=== PATIENT | female | born 1980 | race Caucasian/White ===

== ENCOUNTER → 2017-10-31 10:11 | Outpatient (CLI) | payer BC, SELFPAY ==
[2017-10-31 12:05] LABS: Basophils % 0.3 % (0.1-2.0); Eosinophils # 0.1 K/mm3 (0.0-0.4); Eosinophils % 1.1 % (0.1-12.0); Hematocrit 42.1 % (37.0-47.0); Hemoglobin 13.7 g/dL (12.2-16.2); Lymphocytes # 2.5 K/mm3 (0.7-4.5); Mean Corpuscular HGB Conc 32.6 g/dL (31.8-35.4); Mean Corpuscular Hemoglobin 28.4 pg (27.0-31.2); Mean Corpuscular Volume 86.9 fl (81-99); Mean Platelet Volume 7.2 fl (7.4-10.4); Monocytes # 0.3 K/mm3 (0.1-1.0); Monocytes % 3.8 % (1.7-9.3); Neutrophils # 5.4 K/mm3 (1.8-7.8); Neutrophils % 64.8 % (37.0-80.0); Platelet Count 289 K/mm3 (142-424); Red Blood Count 4.84 M/mm3 (4.20-5.40); Red Cell Distribution Width 13.1 % (11.5-17.5); White Blood Count 8.3 K/mm3 (4.8-10.8)
[2017-10-31 12:24] LABS: Hemoglobin A1C 5.6 % (0.0-7.0)
[2017-10-31 13:38] LABS: Alanine Aminotransferase 33 U/L (12-78); Albumin Level 3.6 gm/dL (3.4-5.0); Alkaline Phosphatase 97 U/L (46-116); Anion Gap 13.2 mEq/L (5-15); Aspartate Amino Transferase 16 U/L (15-37); Bilirubin,Total 0.5 mg/dL (0.2-1.0); Blood Urea Nitrogen 18 mg/dL (7-18); Calcium 9.4 mg/dL (8.5-10.1); Carbon Dioxide 29 mmol/L (21.0-32.0); Chloride 103 mmol/L (98-107); Chol/HDL Ratio 4.1 (1-3.5); Cholesterol 185 mg/dL (140-200); Creatinine,Serum 0.73 mg/dL (0.55-1.02); Estimated Glomerular Filt Rate 89 ml/min (>60); Ferritin 116 ng/mL (8-388); GFR (African American) 107 ML/MIN (>60); Globulin 3.5 gm/dl (1.3-3.2); Glucose 86 mg/dL (74-106); HDL Cholesterol 45 mg/dL (29-89); Iron 62 ug/dl (28-170); LDL Cholesterol 98 mg/dL (0-130); Magnesium 1.9 mg/dL (1.4-2.2); Phosphorous 2.8 mg/dL (2.4-4.9); Potassium 4.2 mmoL/L (3.5-5.1); Sodium 141 mmol/L (136-145); Total Protein,Serum 7.1 gm/dL (6.4-8.2); Triglycerides 209 mg/dL (30-200); VLDL Cholesterol 42 mg/dL (0-40)
[2017-11-02 12:50] LABS: Folate >20.0 ng/mL (>3.0); Parathyroid Hormone Intact 52 pg/mL (15-65); Prealbumin 23 mg/dL (14-35)
[2017-11-04 16:09] LABS: Vitamin E Alpha Tocopherol 10.9 mg/L (5.9-19.4)
[2017-11-05 06:43] LABS: Vitamin E Gamma Tocopherol 3.5 mg/L (0.7-4.9)
[2017-11-05 11:30] LABS: Vitamin B1 151.1 nmol/L (66.5-200.0)
[2017-11-06 06:04] LABS: Methylmalonic Acid 118 nmol/L (0-378)
[2017-11-16 21:53] LABS: Vitamin D 25 Hydroxy 23.1
== END ==
PROVIDERS: Visit Provider Physician Assistant
DX: I10 Essential (primary) hypertension (principal); K21.9 Gastro-esophageal reflux disease without esophagitis; E66.01 Morbid (severe) obesity due to excess calories
CPT/HCPCS: 36415; 80053; 80061; 82131; 82652; 82728; 82746; 83036; 83540; 83735; 83970; 84100; 84134; 84425; 84443; 84446; 84590; 85025

== ENCOUNTER 2018-05-06 17:02 | Outpatient (RCR) | payer BC, SELFPAY | END 2018-06-07 11:00 | disposition home or self-care (01) | LOC: PT.CARL 17:02 | PROVIDERS: Visit Provider Orthopaedic Surgery | DX: M25.562 Pain in left knee (principal) | CPT/HCPCS: 97010; 97014; 97035; 97110; 97163; G0283 ==

== ENCOUNTER 2018-07-08 17:00 | Outpatient (RCR) | payer BC, SELFPAY | END 2018-08-05 16:00 | disposition home or self-care (01) | LOC: PT.CARL 17:00 | PROVIDERS: Visit Provider Orthopaedic Surgery | DX: M25.562 Pain in left knee (principal) | CPT/HCPCS: 97010; 97014; 97110; 97163; G0283 ==

== ENCOUNTER → 2018-12-13 16:52 | Outpatient (CLI) | payer BC, SELFPAY ==
[2018-12-13 17:51] LABS: Basophils % 0.3 % (0.1-2.0); Eosinophils % 0.5 % (0.1-12.0); Hematocrit 41.5 % (37.0-47.0); Hemoglobin 13.3 g/dL (12.2-16.2); Lymphocytes # 2.7 K/mm3 (0.7-4.5); Lymphocytes % 31.4 % (10-50); Mean Corpuscular HGB Conc 32.1 g/dL (31.8-35.4); Mean Corpuscular Hemoglobin 28.2 pg (27.0-31.2); Mean Corpuscular Volume 87.9 fl (81-99); Mean Platelet Volume 7.2 fl (7.4-10.4); Monocytes # 0.4 K/mm3 (0.1-1.0); Monocytes % 4.9 % (1.7-9.3); Neutrophils # 5.4 K/mm3 (1.8-7.8); Neutrophils % 62.8 % (37.0-80.0); Platelet Count 231 K/mm3 (142-424); Red Blood Count 4.72 M/mm3 (4.20-5.40); Red Cell Distribution Width 12.9 % (11.5-17.5); White Blood Count 8.6 K/mm3 (4.8-10.8)
[2018-12-15 17:13] LABS: RA Latex Turbid. <10.0 IU/mL (0.0-13.9)
[2018-12-18 14:07] LABS: Antinuclear Antibodies, IFA Negative (.)
== END ==
PROVIDERS: Visit Provider Family Medicine
DX: M19.90 Unspecified osteoarthritis, unspecified site (principal)
CPT/HCPCS: 36415; 85025; 86038; 86431

== ENCOUNTER 2019-04-21 12:37 | Outpatient (RCR) | payer BC, SELFPAY | END 2019-04-21 15:00 | disposition home or self-care (01) | LOC: OT 12:37 | PROVIDERS: PCP Nurse Practitioner Family; Visit Provider Orthopaedic Surgery Hand Surgery | DX: M25.531 Pain in right wrist (principal); Z48.89 Encounter for other specified surgical aftercare | CPT/HCPCS: 97140; 97165 ==

== ENCOUNTER → 2019-09-29 10:52 | Outpatient (CLI) | payer BC, SELFPAY ==
--- NOTE | 2019-09-29 10:59 | MR_ITS ---
PROCEDURE: MR LUMBAR SPINE WO CON CLINICAL INDICATION: LOW BACK PAIN Low back pain, right buttock pain COMPARISON: ABDPELWO CT abdomen pelvis wo con from 11/21/2018 TECHNIQUE: Standard multiplanar multiecho sequences are performed without contrast. 3-D MIP and myelographic images are also rendered and reviewed FINDINGS: There is normal alignment. There is reversal of the thoracolumbar lordosis with degenerative disc disease in the lower thoracic spine. Spinal cord ends at the L1-L2 level. T10-T11: Degenerative disc disease with minimal bulging disc. T11-T12: Degenerate disc disease with type 1 endplate changes anteriorly with anterior osteophytes. T12-L1: Degenerate disc disease with minimal bulging disc. L1-L2: Unremarkable. L2-L3: Unremarkable. L3-L4: Mild facet hypertrophic change. L4-5: Minimal bulging disc with mild facet and ligamentum hypertrophy with mild bilateral foraminal narrowing. L5-S1: Mild facet hypertrophic change with mild bilateral foraminal narrowing. No canal stenosis or extruded herniated disc is evident. IMPRESSION: 1. Mild multilevel lower thoracic and lumbar spondylosis with degenerative disc disease and minimal bulging disc along with facet and ligamentum hypertrophy with some mild foraminal narrowing. 2. Type 1 endplate changes at T11-T12 3. No extruded herniated disc or canal stenosis. Dictated by: Charles Diez MD 10/01/2019 17:57 Electronically signed by Charles Diez MD in [place] 10/01/2019 17:57
== END ==
PROVIDERS: PCP Nurse Practitioner Family; Visit Provider Orthopaedic Surgery Adult Reconstructive Orthopaedic Surgery
DX: M54.5 Low back pain (principal)
CPT/HCPCS: 72148; 76376

== ENCOUNTER 2019-12-05 15:02 | Emergency (ER) | payer BC, SELFPAY ==
[2019-12-05 15:04] VITALS: BP 127/87; PULSE 125; RESP 20; TEMP 37.2; O2SAT 98; BMI 29.8
--- NOTE | 2019-12-05 15:19 | CT_ITS ---
PROCEDURE: CT LUMBAR SPINE WO CON CLINICAL HISTORY: pain Low back pain COMPARISON: MR LUMBAR SPINE WO CON from 09/29/2019 TECHNIQUE: Axial images obtained with sagittal and coronal reformats. All CT scans at the facility use one or more dose reduction, viz: automated exposure control, ma/kV adjustment per patient size (including targeted exams where dose is matched to indication, i.e. head), or iterative reconstruction technique. FINDINGS: There is minimal lumbar curvature convex left. Moderate degenerative disc disease T11-T12 with anterior osteophytes and endplate sclerosis. T12-L1, L1-L2, L2-L3, and L3-L4 have an unremarkable appearance. Minimal bulging disc L4-5 with mild facet and ligamentum hypertrophy with mild bilateral lateral recess and foraminal narrowing Mild facet ligamentum hypertrophy L5-S1 with mild bilateral foraminal narrowing. No acute fracture or dislocation. No lytic or blastic change. There is a moderate amount of retained colonic feces IMPRESSION: 1. Minimal bulging disc L4-5 with mild facet and ligamentum hypertrophy with mild bilateral lateral recess and foraminal narrowing 2. Mild facet ligamentum hypertrophy L5-S1 with mild bilateral foraminal narrowing. 3. No acute fracture or dislocation or other acute anomaly. Dictated by: Charles Diez MD 12/05/2019 15:56 Electronically signed by Charles Diez MD in [place] 12/05/2019 15:56
--- NOTE | 2019-12-05 16:12 | HMH.EDGENADL ---
ED Disposition Clinical Impression: Herniated lumbar disc without myelopathy Disposition: Home, Self-Care Condition on Discharge: Good Instructions: DI for Acute Pain -- Adult Prescriptions: methylPREDNISolone [Medrol 4mg tab] 4 mg PO DIRECTED #21 tab Transmission Status: Pending to [id number] Nabumetone 750 mg PO BID 10 Days #20 tab Transmission Status: Pending to [id number] Tizanidine HCl [Zanaflex 4mg tablet] 4 mg PO TID 10 Days #30 tab Transmission Status: [id number] Referrals: Rae Frey APRN [Primary Care Provider] - - Critical Care Critical Care Time: No Attestation: On 12/05/19, the high probability of a clinically significant, sudden or life threatening deterioration of the following system(s) required my full and direct attention, intervention and personal management. The time I documented below is in addition to time spent performing reported procedures but includes the following listed in this critical care notation. Medical Decision Making - Medical Records Medical records reviewed: Yes: I reviewed the patient's medical records. - Misha Inquiry Pt receiving controlled substance: No Vital Signs: 12/05/19 15:04 Temperature 99 F Temperature Source Oral Pulse Rate [Left Radial] 125 H Respiratory Rate 20 Blood Pressure [Right Arm] 127/87 Blood Pressure Mean [Right Arm] 100 Blood Pressure Position [Right Arm] Sitting 02 Sat by Pulse Oximetry 98 Oxygen Delivery Method Room Air Orders (Tests/Meds): ED MEDICATIONS Discontinued Medications Generic Name Dose Route Start Last Admin Trade Name Dustyq PRN Reason Stop Dose Admin Dexamethasone Sodium Phosphate 10 mg 12/05/19 15:28 12/05/19 15:31 Decadron 4mg/Ml 1ml Vial IM 12/05/19 15:29 10 mg ONCE ONE Administration Hydromorphone HCl 1 mg 12/05/19 15:29 12/05/19 15:30 Dilaudid 2mg/Ml Syringe IM 12/05/19 15:30 1 mg ONCE ONE Administration Ondansetron HCl 4 mg 12/05/19 15:29 12/05/19 15:31 Zofran 4mg/2ml Vial IM 12/05/19 15:30 4 mg ONCE ONE Administration Ondansetron HCl 4 mg 12/05/19 15:40 12/05/19 15:41 Zofran 4mg/2ml Vial IV 12/05/19 15:41 Not Given ONCE ONE Ondansetron HCl 4 mg 12/05/19 15:42 12/05/19 15:43 Zofran 4mg Odt SL 12/05/19 15:43 4 mg ONCE ONE Administration Orphenadrine Citrate 60 mg 12/05/19 15:28 12/05/19 15:31 Norflex 60mg/2ml Vial IM 12/05/19 15:29 60 mg ONCE ONE Administration - CT Data CT Scan: L-Spine Time Received: 16:[address] Reviewed: Yes: I have viewed the radiologist's interpretation Preliminary Findings: Abnormal (Bulging between L4 and L5) General Adult HPI - General Chief complaint: PAIN Stated complaint: Back & hip pain Time Seen by Provider: 12/05/19 16:12 Mode of Arrival: Ambulatory Source of Information: Patient Limitations: No Limitations Description of Symptoms (Recalled from ER Triage Doc. by RN): to ed per pvt car with c/o rt side lower back pain radiating down rt leg. pt with hx of same states she had an injection 3 months ago and felt better until yesterday now states pain is getting worse. pt denies incontinence of bowel or bladder. - History of Present Illness HPI narrative: 39-year-old female presents the emergency department with acute on chronic low back pain. She states that she has had chronic low back pain for the last 2 to 3 years. She states she was moving some boxes a few days prior and she developed some acute back pain more so on the right side radiating down the right leg. Patient denies any bowel or bladder incontinence patient also denies any any muscle strength decrease in the right leg. Patient does rate her pain 8 out of 10. Classifies the pain is sharp and almost like a tearing-like sensation. She also states that the alleviating factors include flexion at the waist without leg and exacerbating factors include ambulation.Patient denies any recent c
[2019-12-05 16:29] VITALS: BP 124/85; PULSE 80; RESP 18; TEMP 36.8; O2SAT 98
--- NOTE | 2019-12-05 16:29 | INFXCTL.NOTE ---
Pt states she wishes to speak to MD regarding her home pain medication, MD notified
== END 2019-12-05 16:42 | disposition home or self-care (01) ==
PROVIDERS: Emergency Provider Family Medicine; PCP Nurse Practitioner Family
DX: M51.26 Other intervertebral disc displacement, lumbar region (principal); M54.16 Radiculopathy, lumbar region; Z88.5 Allergy status to narcotic agent
CPT/HCPCS: 72131; 96372; 99282; J2405

== ENCOUNTER 2019-12-06 00:26 | Emergency (ER) | payer BC, SELFPAY ==
[2019-12-06 00:31] VITALS: BP 119/85; PULSE 115; RESP 16; TEMP 36.6; O2SAT 98; BMI 29.8
--- NOTE | 2019-12-06 01:11 | HMH.EDBACK ---
ED Disposition Clinical Impression: Lumbar radiculopathy Disposition: Home, Self-Care Condition on Discharge: Good Instructions: DI for Back Pain With Sciatica Additional Instructions: call pcp for follow up Prescriptions: Hydrocod/Acet 5/325 mg [[place] 5/325mg tablet] 1 tab PO Q6HP PRN #10 tab PRN Reason: Moderate To Severe Pain Prescription Printed Referrals: PCP,No [Primary Care Provider] - - Critical Care Critical Care Time: No Attestation: On 12/06/19, the high probability of a clinically significant, sudden or life threatening deterioration of the following system(s) required my full and direct attention, intervention and personal management. The time I documented below is in addition to time spent performing reported procedures but includes the following listed in this critical care notation. Medical Decision Making - Medical Records Medical records reviewed: Yes: I reviewed the patient's medical records. - Misha Inquiry Pt receiving controlled substance: No Vital Signs: 12/06/19 00:31 Temperature 97.8 F Temperature Source Oral Pulse Rate [Right Brachial] 115 H Respiratory Rate 16 Blood Pressure [Right Arm] 119/85 Blood Pressure Mean [Right Arm] 96 Blood Pressure Source [Right Arm] Automatic Cuff Blood Pressure Position [Right Arm] Sitting 02 Sat by Pulse Oximetry 98 Oxygen Delivery Method Room Air Orders (Tests/Meds): ED MEDICATIONS Discontinued Medications Generic Name Dose Route Start Last Admin Trade Name Freq PRN Reason Stop Dose Admin Butorphanol Tartrate 1 mg 12/06/19 00:58 12/06/19 01:06 Stadol 1mg/1ml Vial IM 12/06/19 00:59 1 mg ONCE ONE Administration Promethazine HCl 25 mg 12/06/19 00:57 12/06/19 01:07 Phenergan 25mg/Ml 1ml Vial IM 12/06/19 00:58 25 mg ONCE ONE Administration Back Pain HPI - General Chief Complaint: Back Pain/Injury Stated Complaint: Lower back pain radiating down right leg Time Seen by Provider: 12/06/19 01:11 Mode of Arrival: Family Vehicle Source of Information: Patient, Medical Record Limitations: No Limitations Description of Symptoms (Recalled from ER Triage Doc. by RN): patient re-presents for continued back pain after her visit today. - History of Present Illness HPI Narrative: pt with ongoing back pain with rad to ext with hx of seeing pain center for injection - pt seen in ed earlier but has recurrent pain w/o cauda equina sx- reviewed prev ed visit and mri and ct - no fever or rash Complaint: back pain Onset (ago): day(s) Duration: intermittent Similar Symptoms Previously: Yes Location: lumbar spine Severity: moderate Quality: burning Radiation: left leg, right leg Context: other (ongoing ) Associated symptoms: denies other symptoms Pertinent Issues R/T Back Pain: Pain Management Services - Related Data Home Medications Medication Instructions Recorded Confirmed Gabapentin 600 mg PO DAILY 11/21/18 12/06/19 Trazodone HCl 50 mg PO HS 11/21/18 12/06/19 Nabumetone 750 mg PO BID 12/06/19 12/06/19 Tizanidine HCl [Zanaflex 4mg 4 mg PO TID 12/06/19 12/06/19 tablet] methylPREDNISolone [Medrol 4mg 4 mg PO DIRECTED 12/06/19 12/06/19 tab] Previous Rx's Medication Instructions Recorded Hydrocod/Acet 5/325 mg [[place] 1 tab PO Q6HP PRN #10 tab 12/06/19 5/325mg tablet] Allergies Allergy/AdvReac Type Severity Reaction Status Date / Time Iodinated Contrast Media Allergy Severe Anaphylaxis Verified 12/06/19 00:50 [IODINATED CONTRAST MEDIA - IV DYE] codeine [CODEINE] Allergy Unknown SWELLING Verified 12/06/19 00:50 iodine [IODINE] Allergy Unknown Anaphylaxis Verified 12/06/19 00:50 loperamide [LOPERAMIDE] Allergy Unknown Rash Verified 12/06/19 00:50 shellfish derived Allergy Unknown SWELLING Verified 12/06/19 00:50 [From SHELLFISH (FOOD/DRUG)] From SHELLFISH (FOOD/DRUG) Allergy Unknown SWELLING Uncoded 05/08/17 15:04 [facility] History - Hepatitis A
[2019-12-06 01:26] VITALS: BP 124/76; PULSE 72; RESP 16; TEMP 36.8; O2SAT 98
== END 2019-12-06 01:37 | disposition home or self-care (01) ==
PROVIDERS: Emergency Provider Emergency Medicine
DX: M54.16 Radiculopathy, lumbar region (principal); Z88.5 Allergy status to narcotic agent
CPT/HCPCS: 99281; 99282; J0595

== ENCOUNTER → 2020-03-25 16:58 | Outpatient (CLI) | payer BC, SELFPAY ==
--- NOTE | 2020-03-25 16:58 | MM_ITS ---
PROCEDURE: MM DIG SCREENING MAMM BI W/CAD Digital Breast Tomosynthesis Included CLINICAL INDICATION: screening There is no personal or family history of breast cancer. COMPARISON: This is a baseline screening exam, patient without complaints. TECHNIQUE: Standard CC and MLO images and 3D Tomosynthesis was obtained. R2 CAD reviewed. FINDINGS: Scattered fibroglandular densities are seen throughout both breast on a background of fatty breast parenchyma and the findings of bilateral and symmetrical. There is a benign-appearing calcification just deep to the nipple right breast. There is minimal arterial calcification in each breast. There is no suspicious lesion and no suspicious microcalcifications. IMPRESSION: Fibrofatty parenchyma with no suspicious lesions seen BI-RAD Category: 2 Benign Finding(s) FOLLOW-UP: 1YR 1 Year Follow-up (A letter has been sent to the patient regarding results of the study.) Dictated by: Dr. Edgar Parisi MD 03/30/2020 11:15 Dr. Edgar Parisi MD in [place] 03/30/2020 11:15
== END ==
PROVIDERS: PCP Emergency Medicine; Visit Provider Emergency Medicine
DX: Z12.31 Encounter for screening mammogram for malignant neoplasm of breast (principal)
CPT/HCPCS: 77063; 77067

== ENCOUNTER 2020-05-12 17:52 | Emergency (ER) | payer BC, SELFPAY ==
[2020-05-12 17:56] VITALS: BP 166/101; PULSE 106; RESP 16; TEMP 36.9; O2SAT 97; BMI 29.0
--- NOTE | 2020-05-12 18:15 | CT_ITS ---
PROCEDURE: CT LUMBAR SPINE WO CON CLINICAL HISTORY: Lower back pain acutely worse, hx herniated disc COMPARISON: CT CT LUMBAR SPINE WO CON from 12/05/2019 TECHNIQUE: Axial images obtained with sagittal and coronal reformats. All CT scans at the facility use one or more dose reduction, viz: automated exposure control, ma/kV adjustment per patient size (including targeted exams where dose is matched to indication, i.e. head), or iterative reconstruction technique. FINDINGS: There is normal alignment. No acute fracture or dislocation is evident. There is degenerative disc disease at T11-T12 with endplate sclerosis and a small Schmorl's nodes. Anterior osteophyte noted at this region. There is minimal lumbar curvature convex left. There is mild chronic anterior wedging of T12 . T12-L1: Mild degenerative disc disease. L1-L2: Unremarkable. L2-L3: Unremarkable. L3-L4: Unremarkable. L4-5: Mild bulging disc with facet arthritic changes and mild bilateral foraminal narrowing. L5-S1:. Minimal bulging disc. Mild left-sided foraminal narrowing. IMPRESSION: Multilevel lumbar spondylosis. Please see above for detailed description at each level. Dictated by: Charles Diez MD 05/13/2020 07:29 Charles Diez MD in [place] 05/13/2020 07:29
--- NOTE | 2020-05-12 18:27 | HMH.EDGENADL ---
ED Disposition Condition on Discharge: Fair - Critical Care Critical Care Time: No <Cheng Paz - Last Filed: 05/12/20 20:25> <Roger Lemos - Last Filed: 05/12/20 21:02> Clinical Impression: Herniated lumbar disc without myelopathy, Lumbar radiculopathy, Lumbar facet joint pain Back pain Qualifiers: Back pain location: low back pain Chronicity: chronic Back pain laterality: right Sciatica presence: unspecified whether sciatica present Qualified Code(s): M54.5 - Low back pain UTI (urinary tract infection) Qualifiers: Urinary tract infection type: acute cystitis Hematuria presence: without hematuria Qualified Code(s): N30.00 - Acute cystitis without hematuria Disposition: Home, Self-Care Instructions: DI for Low Back Pain Additional Instructions: call office sunday about urine culture Prescriptions: Cefdinir [Omnicef 300mg Capsule] 300 mg PO BID #20 cap Transmission Status: [id number] Referrals: Roger Lemos MD [Primary Care Provider] - Attestation: On 05/12/20, the high probability of a clinically significant, sudden or life threatening deterioration of the following system(s) required my full and direct attention, intervention and personal management. The time I documented below is in addition to time spent performing reported procedures but includes the following listed in this critical care notation. Medical Decision Making - Medical Records Medical records reviewed: Yes: I reviewed the patient's medical records. - Misha Inquiry Pt receiving controlled substance: No - Lab Data Result diagrams: 05/12/20 18:25 05/12/20 18:25 <Cheng Paz - Last Filed: 05/12/20 20:25> - Lab Data Lab results reviewed: Yes: I reviewed the patient's lab results. Result diagrams: 05/12/20 18:25 05/12/20 18:25 - CT Data CT Scan: Abdomen, Pelvis, L-Spine Time Received: 20:[address] Reviewed: Yes: I have viewed the radiologist's interpretation Preliminary Findings: No Fracture Seen <Roger Lemos - Last Filed: 05/12/20 21:02> Vital Signs: 05/12/20 17:56 Temperature 98.5 F Temperature Source Oral Pulse Rate [Right] 106 H Respiratory Rate 16 Blood Pressure [Right Arm] 166/101 H Blood Pressure Mean [Right Arm] 122 Blood Pressure Source [Right Arm] Automatic Cuff Blood Pressure Position [Right Arm] Sitting 02 Sat by Pulse Oximetry 97 Oxygen Delivery Method Room Air - Lab Data Lab Results 05/12/20 18:00: Urine Color Yellow, Urine Appearance Sl cloudy, Urine pH 7.0, Ur Specific [place] 1.020, Urine Protein Negative, Urine Glucose (UA) Negative, Urine Ketones Negative, Urine Blood Negative, Urine Nitrate Negative, Urine Bilirubin Negative, Urine Urobilinogen 1.0, Ur Leukocyte Esterase 1+ A, Urine RBC 3-5, Urine WBC 10-20, Ur Squamous Epith Cells 10-20, Calcium Oxalate Crystal 1+, Urine Bacteria 2+ 05/12/20 18:25: WBC 6.9, RBC 4.58, Hgb 14.3, Hct 42.6, MCV 92.9, MCH 31.2, MCHC 33.6, RDW 13.7, Plt Count 230, MPV 7.7, Neut % (Auto) 58.9, Lymph % (Auto) 35.2, [place] % (Auto) 4.2, Eos % (Auto) 1.3, Baso % (Auto) 0.4, Neut # (Auto) 4.0, Lymph # (Auto) 2.4, [place] # (Auto) 0.3, Eos # (Auto) 0.1, Baso # (Auto) 0.0 05/12/20 18:25: Sodium 142, Potassium 4.0, Chloride 105, Carbon Dioxide 27, Anion Gap 14.0, BUN 16, Creatinine 0.70, Estimated Creat Clear 136, Estimated GFR 92, Est GFR ( Amer) 112, Glucose 103 H, Calcium 9.9 Orders (Tests/Meds): ED MEDICATIONS Generic Name Dose Route Start Last Admin Trade Name Freq PRN Reason Stop Dose Admin Ceftriaxone Sodium 1 gm/ 50 mls @ 100 mls/hr 05/12/20 20:00 05/12/20 19:58 Sodium Chloride IV 05/26/20 19:59 100 mls/hr Q24H LIYAH Administration Protocol Morphine Sulfate 8 mg 05/12/20 18:17 05/12/20 18:27 Morphine 8mg/Ml Syringe IV 06/11/20 18:16 8 mg Q2HP PRN Administration Moderate to Severe Pain Discontinued Medications Generic Name Dose Route Start Last Admin Trade Name F
--- NOTE | 2020-05-12 18:30 | PC.NURSE ---
pt going for CT
[2020-05-12 18:37] LABS: Basophils % 0.4 % (0.1-2.0); Eosinophils # 0.1 K/mm3 (0.0-0.4); Eosinophils % 1.3 % (0.1-12.0); Hematocrit 42.6 % (37.0-47.0); Hemoglobin 14.3 g/dL (12.2-16.2); Lymphocytes # 2.4 K/mm3 (0.7-4.5); Lymphocytes % 35.2 % (10-50); Mean Corpuscular HGB Conc 33.6 g/dL (31.8-35.4); Mean Corpuscular Hemoglobin 31.2 pg (27.0-31.2); Mean Corpuscular Volume 92.9 fl (81-99); Mean Platelet Volume 7.7 fl (7.4-10.4); Monocytes # 0.3 K/mm3 (0.1-1.0); Monocytes % 4.2 % (1.7-9.3); Neutrophils % 58.9 % (37.0-80.0); Platelet Count 230 K/mm3 (142-424); Red Blood Count 4.58 M/mm3 (4.20-5.40); Red Cell Distribution Width 13.7 % (11.5-17.5); White Blood Count 6.9 K/mm3 (4.8-10.8)
[2020-05-12 18:38] LABS: Chloride 105 mmol/L (98-107); Sodium 142 mmol/L (136-145)
[2020-05-12 18:41] LABS: Blood Urea Nitrogen 16 mg/dl (7-17); Calcium 9.9 mg/dl (8.4-10.2); Carbon Dioxide 27 mmol/L (22.0-30.0); Creatinine Clearance Estimated 136 mL/min (50-200); Estimated Glomerular Filt Rate 92 ml/min (>60); GFR (African American) 112 ML/MIN (>60); Glucose 103 mg/dl (74-100)
[2020-05-12 18:53] LABS: Microscopic, Urine URINE MICROSCOPIC (MICROSCOPIC)
[2020-05-12 18:55] LABS: Appearance,Urine SL CLOUDY (Clear); Bilirubin,Urine Negative (Negative); Blood, Urine Negative (Negative); Color,Urine YELLOW (Yellow); Glucose,Urine (UA) Negative (Negative); Ketones,Urine Negative (Negative); Leukocyte Esterase,Urine 1+ (Negative); Nitrate,Urine Negative (Negative); Protein,Urine Negative (Negative)
[2020-05-12 19:10] LABS: Bacteria,Urine 2+ /lpf; Calcium Oxalate Crystals,Urine 1+ /lpf
--- NOTE | 2020-05-12 19:59 | CT_ITS ---
PROCEDURE: CT ABDOMEN PELVIS WO CON CLINICAL INDICATION: Back/right flank pain Abdominal pain, right flank pain COMPARISON: CT ABDPELWO CT abdomen pelvis wo con from 11/21/2018 TECHNIQUE: Axial images obtained with sagittal and coronal reformats. All CT scans at the facility use one or more dose reduction, viz: automated exposure control, ma/kV adjustment per patient size (including targeted exams where dose is matched to indication, i.e. head), or iterative reconstruction technique. FINDINGS: LOWER THORAX: No acute finding ABDOMEN & PELVIS: Status post cholecystectomy with pneumobilia and mildly prominent common bile duct at 10 mm not significantly changed. The liver, spleen, adrenal glands, and pancreas have an unremarkable appearance. No renal or ureteral calculi. No hydronephrosis. There are a few [place] splenic varices. Scattered small nodes are present within the mesenteries and right lower quadrant. No evidence of appendicitis or diverticulitis. No intestinal obstruction or free air. There is a mild amount of retained colonic feces. There are post hysterectomy changes. No acute bony findings. Degenerative changes are present in the lumbar spine and lower thoracic spine. IMPRESSION: No acute finding. Chronic nonemergent findings as described above. Dictated by: Charles Diez MD 05/13/2020 07:43 Charles Diez MD in [place] 05/13/2020 07:43
[2020-05-12 21:03] VITALS: BP 136/74; PULSE 86; RESP 14; TEMP 36.9
== END 2020-05-12 21:11 | disposition home or self-care (01) ==
PROVIDERS: Emergency Provider Emergency Medicine; PCP Emergency Medicine
DX: M54.16 Radiculopathy, lumbar region (principal); M51.26 Other intervertebral disc displacement, lumbar region; N30.00 Acute cystitis without hematuria; Z88.8 Allergy status to other drugs, medicaments and biological substances; Z88.5 Allergy status to narcotic agent
CPT/HCPCS: 72131; 74176; 80048; 81001; 85025; 87086; 96365; 96375; 96376; 99283; J2405

== ENCOUNTER → 2020-06-04 16:57 | Outpatient (CLI) | payer BC, SELFPAY | PROVIDERS: PCP Emergency Medicine; Visit Provider Emergency Medicine | DX: Z20.822 Contact with and (suspected) exposure to COVID-19 (principal) | CPT/HCPCS: U0003 ==

== ENCOUNTER 2020-06-04 17:20 | Emergency (ER) | payer BC, SELFPAY ==
[2020-06-04 17:30] VITALS: BP 134/98; PULSE 97; RESP 14; TEMP 36.6; O2SAT 99; BMI 29.5
--- NOTE | 2020-06-04 17:36 | HMH.EDUTC ---
[facility] [place] Clinical Impression: Vomiting Qualifiers: Vomiting type: unspecified Vomiting Intractability: non-intractable Nausea presence: with nausea Qualified Code(s): R11.2 - Nausea with vomiting, unspecified Disposition: Home, Self-Care Condition on Discharge: Good Instructions: DI for Vomiting -- Adult Additional Instructions: Return to ER if severe pain,unable to stay hydrated, etc Prescriptions: Promethazine HCl [Phenergan 25mg tab] 25 mg PO Q6H PRN 2 Days #10 tab PRN Reason: Nausea And Vomiting Transmission Status: Pending to [facility]/pharmacy #[id number] Referrals: Roger Lemos MD [Primary Care Provider] - Time of Disposition: 17:43 Medical Decision Making - Misha Inquiry Pt receiving controlled substance: No Orders (Tests/Meds): ORDERS Category Date Time Status Covid-19 Nasal PCR ([facility]) Routine Lab 06/04/20 17:31 Ordered [facility] [place] - General Stated complaint: vomiting Time Seen by Provider: 06/04/20 17:36 - History of Present Illness Provider Complaint: Vomiting, headache, stomach cramps, body aches since the middle of the night. Hurts all over. Hasn't kept anything down. Zofran didn't help. Onset (ago): hour(s) (12) Location: abdomen Relieving factors: none Exacerbating factors: none Associated symptoms: denies other symptoms, headaches, nausea/vomiting Treatments prior to arrival: other (zofran) - Related Data Home Medications Medication Instructions Recorded Confirmed Gabapentin 600 mg PO DAILY 11/21/18 05/17/20 Trazodone HCl 50 mg PO HS 11/21/18 05/17/20 Previous Rx's Medication Instructions Recorded hydrocodone 7.5 mg-acetaminophen 1 tab PO TID #90 tab 05/04/20 325 mg tablet Cefdinir [Omnicef 300mg Capsule] 300 mg PO BID #20 cap 05/12/20 tizanidine 6 mg capsule 6 mg PO TID PRN #90 cap 05/17/20 baclofen 10 mg tablet See Rx Instructions .ROUTE 06/02/20 .COMPLEX #30 tab Promethazine HCl [Phenergan 25mg 25 mg PO Q6H PRN 2 Days #10 tab 06/04/20 tab] Allergies Allergy/AdvReac Type Severity Reaction Status Date / Time Iodinated Contrast Media Allergy Severe Anaphylaxis Verified 05/17/20 09:26 [IODINATED CONTRAST MEDIA - IV DYE] codeine [CODEINE] Allergy Unknown SWELLING Verified 05/17/20 09:26 iodine [IODINE] Allergy Unknown Anaphylaxis Verified 05/17/20 09:26 loperamide [LOPERAMIDE] Allergy Unknown Rash Verified 05/17/20 09:26 shellfish derived Allergy Unknown SWELLING Verified 05/17/20 09:26 [From SHELLFISH (FOOD/DRUG)] From SHELLFISH (FOOD/DRUG) Allergy Unknown SWELLING Uncoded 03/05/20 15:53 [facility] History - Hepatitis A Screen Attestation statement:: This patient has been screened for Hepatitis A risk factors. I have reviewed the patient's past medical history: Yes Medical History: Denies:: Cancer, Diabetes Mellitus Type 1, Diabetes Mellitus Type 2, MRSA Other Surgeries: Yes: Appendectomy, Bariatric Surgery, Cholecystectomy, Hysterectomy-Total Amputation: No Fractures: No - Social History Smoking Status: Never smoker Alcohol Intake: never Substance Use Type: denies use Occupational Status: employed Housing: house Household Members: family Family Hx:: Cancer, Hypertension, Hyperlipidemia ROS Obtained: Yes All systems reviewed & no additional complaints - Constitutional Constitutional: Reports system reviewed and no additional complaints, except as docu, Reports body ache, Reports chills, Reports headache(s), Reports malaise - Gastrointestinal Gastrointestingal: Reports: vomiting Physical Exam - General General appearance: alert, in no apparent distress - Head Head exam: normocephalic - Eye Eye exam: Present: PERRL - ENT ENT exam: Present: normal oropharynx - Neck Neck exam: Present: normal inspection - Chest Chest inspection: Present: symmetric chest wall rise - Respiratory Respiratory exam: Present: normal lung sounds bilaterally - Cardiovascular Cardiovascular exam: Present: regular
[2020-06-04 17:43] VITALS: BP 134/98; PULSE 97; RESP 14; TEMP 36.6; O2SAT 99
== END 2020-06-04 17:45 | disposition home or self-care (01) ==
PROVIDERS: Emergency Provider Physician Assistant; PCP Emergency Medicine
DX: Z20.822 Contact with and (suspected) exposure to COVID-19 (principal); R11.2 Nausea with vomiting, unspecified
CPT/HCPCS: 99202; G0463

== ENCOUNTER → 2020-07-02 17:33 | Outpatient (CLI) | payer BC, SELFPAY ==
[2020-07-02 18:37] LABS: Amphetamine/Metha Screen,Urine Negative ng/ml (<1000)
[2020-07-02 18:38] LABS: Barbiturates Screen,Urine Negative ng/ml (<200); Benzodiazepines Screen,Urine Negative ng/ml (<200)
[2020-07-02 18:39] LABS: Cannabinoid Screen,Urine Negative ng/ml (<50); Cocaine Screen,Urine Negative ng/ml (<300)
[2020-07-02 18:40] LABS: Methadone Screen,Urine Negative ng/ml (<300)
[2020-07-02 18:41] LABS: Opiate Screen,Urine Positive ng/ml (<300); Phencyclidine Screen,Urine Negative ng/ml (<25)
== END ==
PROVIDERS: Visit Provider Emergency Medicine
DX: Z79.899 Other long term (current) drug therapy (principal)
CPT/HCPCS: 80305

== ENCOUNTER 2020-07-08 13:29 | Emergency (ER) | payer BC, SELFPAY ==
[2020-07-08 13:29] VITALS: BP 136/93; PULSE 113; RESP 19; TEMP 37.4; O2SAT 98; BMI 30.2
--- NOTE | 2020-07-08 13:38 | XR_ITS ---
PROCEDURE: XR CHEST PORTABLE CLINICAL HISTORY: soa/dizziness Shortness of air dizziness cough nonsmoker COMPARISON: 12/06/2016 FINDINGS: Small nodular density projects over the right upper lung. This likely represents overlapping of normal structures however apical lordotic view chest x-ray or noncontrast chest CT recommended to clarify. There is no infiltrate. There is no pulmonary edema or pleural effusion. Cardiac and mediastinal contours are within normal limits. IMPRESSION: Questionable nodular right upper lung density. Apical lordotic chest x-ray or noncontrast chest CT recommended to clarify. Dictated by: Anneliese Chacon MD 07/08/2020 14:34 Anneliese Chacon MD in [place] 07/08/2020 14:34
--- NOTE | 2020-07-08 14:09 | HMH.EDGENADL ---
ED Disposition Clinical Impression: Viral infection Acute bronchitis Qualifiers: Bronchitis organism: other organism Qualified Code(s): J20.8 - Acute bronchitis due to other specified organisms Disposition: Home, Self-Care Condition on Discharge: Good Instructions: DI for Acute Bronchitis Prescriptions: Albuterol Sulfate [Proair Hfa] 8.5 gm IH BID #1 [email or web address] Transmission Status: Pending to [id number] Ondansetron [Zofran 4mg ODT] 4 mg PO BIDP PRN #10 tab PRN Reason: Nausea Transmission Status: Pending to [id number] Referrals: Roger Lemos MD [Primary Care Provider] - - Critical Care Critical Care Time: No Attestation: On 07/08/20, the high probability of a clinically significant, sudden or life threatening deterioration of the following system(s) required my full and direct attention, intervention and personal management. The time I documented below is in addition to time spent performing reported procedures but includes the following listed in this critical care notation. Medical Decision Making - Medical Records Medical records reviewed: Yes: I reviewed the patient's medical records. - Misha Inquiry Pt receiving controlled substance: No Vital Signs: 07/08/20 13:29 07/08/20 14:12 Temperature 99.4 F Temperature Source Oral Pulse Rate [Left Radial] 113 H 101 H Respiratory Rate 19 18 Blood Pressure [Right Arm] 136/93 H 141/108 H Blood Pressure Mean [Right Arm] 107 119 Blood Pressure Source [Right Arm] Automatic Cuff Blood Pressure Position [Right Arm] Sitting 02 Sat by Pulse Oximetry 98 98 Oxygen Delivery Method Room Air - Lab Data Lab Results 07/08/20 14:00: WBC 3.9 L, RBC 4.17 L, Hgb 13.0, Hct 38.2, MCV 91.5, MCH 31.2, MCHC 34.1, RDW 13.1, Plt Count 114 L, MPV 8.8, Neut % (Auto) 81.2 H, Lymph % (Auto) 14.4, Parker % (Auto) 3.3, Eos % (Auto) 0.7, Baso % (Auto) 0.4, Neut # (Auto) 3.2, Lymph # (Auto) 0.6 L, Parker # (Auto) 0.1, Eos # (Auto) 0.0, Baso # (Auto) 0.0 07/08/20 14:00: Sodium 140, Potassium 3.3 L, Chloride 105, Carbon Dioxide 29, Anion Gap 9.3, BUN 17, Creatinine 0.60, Estimated Creat Clear 165, Estimated GFR 110, Est GFR ( Amer) 133, Glucose 96, Calcium 9.0, Total Bilirubin 0.5, AST 31, ALT 21, Alkaline Phosphatase 70, Troponin I < 0.01, Total Protein 7.4, Albumin 4.4, Globulin 3.0, Albumin/Globulin Ratio 1.5 07/08/20 14:00: D-Dimer 0.41 Result diagrams: 07/08/20 14:00 07/08/20 14:00 Orders (Tests/Meds): ED MEDICATIONS Discontinued Medications Generic Name Dose Route Start Last Admin Trade Name Freq PRN Reason Stop Dose Admin Acetaminophen 975 mg 07/08/20 13:45 07/08/20 14:19 Acetaminophen 500mg Tab PO 07/08/20 13:46 Not Given ONCE ONE Sodium Chloride 1,000 mls @ 999 mls/hr 07/08/20 13:45 07/08/20 14:20 Sod Chlor 0.9% 1000ml Bag IV 07/08/20 14:45 999 mls/hr .Q1H1M LIYAH Administration ORDERS Category Date Time Status Covid-19 Nasal PCR ([facility]) Routine Lab 07/08/20 13:30 Received Troponin I Q3H Lab 07/08/20 17:00 Ordered Troponin I Q3H Lab 07/08/20 20:00 Ordered - Radiology Data #1 Image(s): Chest Image Reviewed: Yes I reviewed the patient's radiology results, Yes I reviewed the patient's radiology image, Yes I have reviewed radiologist's interpretation IMPRESSION: Questionable nodular right upper lung density. Apical lordotic chest x-ray or noncontrast chest CT recommended to clarify. - ECG Data Tracing #1 I reviewed this ECG and interpreted as documented below: ECG initial impression date: 07/08/20 ECG initial impression time: 15:03 ECG normal with no acute: arrhythmias, ischemia, conduction abnormalities, chamber hypertrophy Ischemic changes: non-specific ST-T wave changes - Reevaluation(s) Time: 16:02 Reevaluation #1: On reevaluation, patient is feeling better. She has not required any supplemental oxygen. No hypoxia. Patient's coronavirus swab is still pending, noy
[2020-07-08 14:12] VITALS: BP 141/108; PULSE 101; RESP 18; O2SAT 98
[2020-07-08 14:21] LABS: Basophils % 0.4 % (0.1-2.0); Eosinophils % 0.7 % (0.1-12.0); Hematocrit 38.2 % (37.0-47.0); Lymphocytes # 0.6 K/mm3 (0.7-4.5); Lymphocytes % 14.4 % (10-50); Mean Corpuscular HGB Conc 34.1 g/dL (31.8-35.4); Mean Corpuscular Hemoglobin 31.2 pg (27.0-31.2); Mean Corpuscular Volume 91.5 fl (81-99); Mean Platelet Volume 8.8 fl (7.4-10.4); Monocytes # 0.1 K/mm3 (0.1-1.0); Monocytes % 3.3 % (1.7-9.3); Neutrophils # 3.2 K/mm3 (1.8-7.8); Neutrophils % 81.2 % (37.0-80.0); Platelet Count 114 K/mm3 (142-424); Red Blood Count 4.17 M/mm3 (4.20-5.40); Red Cell Distribution Width 13.1 % (11.5-17.5); White Blood Count 3.9 K/mm3 (4.8-10.8)
[2020-07-08 14:37] LABS: D-Dimer 0.41 ug/mL (0.0-0.5)
[2020-07-08 14:40] LABS: Chloride 105 mmol/L (98-107)
[2020-07-08 14:41] LABS: Potassium 3.3 mmoL/L (3.5-5.1); Sodium 140 mmol/L (136-145)
[2020-07-08 14:43] LABS: Alanine Aminotransferase 21 U/L (12-78); Aspartate Amino Transferase 31 U/L (14-36); Blood Urea Nitrogen 17 mg/dl (7-17); Creatinine Clearance Estimated 165 mL/min (50-200); Estimated Glomerular Filt Rate 110 ml/min (>60); GFR (African American) 133 ML/MIN (>60)
[2020-07-08 14:44] LABS: Albumin Level 4.4 g/dl (3.5-5.0); Albumin/Globulin Ratio 1.5 (1.1-1.8); Alkaline Phosphatase 70 U/L (38-126); Anion Gap 9.3 mEq/L (5-15); Bilirubin,Total 0.5 mg/dl (0.2-1.3); Carbon Dioxide 29 mmol/L (22.0-30.0); Glucose 96 mg/dl (74-100); Total Protein,Serum 7.4 g/dl (6.3-8.2)
[2020-07-08 15:00] VITALS: BP 114/77; PULSE 103; RESP 20; O2SAT 99
[2020-07-08 15:00] LABS: Troponin I < 0.01 ng/ml (0.00-0.034)
--- NOTE | 2020-07-08 15:01 | ECG_ITS ---
APPROVED REPORT Exam: Resting ECG HR:105 bpm ECG Measurements Heart Rate 105 AXES CA 152 P 19 QRSd 74 QRS 21 QT 332 T 19 QTc 438 Conclusion Sinus tachycardia Nonspecific T wave abnormality Abnormal ECG Electronically signed by : Juan Fergsuon, 07/09/2020 14:57:41
[2020-07-08 15:30] VITALS: BP 122/82; PULSE 101; RESP 18; O2SAT 97
[2020-07-08 16:18] VITALS: BP 117/83; PULSE 97; RESP 20; O2SAT 99
[2020-07-08 16:58] VITALS: BP 122/82; PULSE 100; RESP 20; TEMP 38.6; O2SAT 97
== END 2020-07-08 17:09 | disposition home or self-care (01) ==
PROVIDERS: Emergency Provider Emergency Medicine; PCP Emergency Medicine
DX: U07.1 COVID-19 (principal); J20.8 Acute bronchitis due to other specified organisms; Z88.8 Allergy status to other drugs, medicaments and biological substances
CPT/HCPCS: 71045; 80053; 84484; 85025; 85378; 93005; 96365; 99284; U0003

== ENCOUNTER → 2020-08-20 13:52 | Outpatient (CLI) | payer BC, SELFPAY ==
[2020-08-20 15:01] LABS: Amphetamine/Metha Screen,Urine Negative ng/ml (<1000)
[2020-08-20 15:02] LABS: Barbiturates Screen,Urine Negative ng/ml (<200)
[2020-08-20 15:04] LABS: Benzodiazepines Screen,Urine Negative ng/ml (<200)
[2020-08-20 15:05] LABS: Cannabinoid Screen,Urine Negative ng/ml (<50); Cocaine Screen,Urine Negative ng/ml (<300)
[2020-08-20 15:06] LABS: Methadone Screen,Urine Negative ng/ml (<300); Opiate Screen,Urine Positive ng/ml (<300)
[2020-08-20 15:07] LABS: Phencyclidine Screen,Urine Negative ng/ml (<25)
== END ==
PROVIDERS: Visit Provider Emergency Medicine
DX: M54.16 Radiculopathy, lumbar region (principal)
CPT/HCPCS: 80305

== ENCOUNTER 2022-05-10 13:50 | Emergency (ER) | payer OTHER, SELFPAY ==
[2022-05-10 13:51] VITALS: BP 133/86; PULSE 106; RESP 18; TEMP 36.6; O2SAT 97; BMI 27.4
--- NOTE | 2022-05-10 14:11 | HMH.EDPGI ---
Discharge Plan Disposition Patient Disposition: Home, Self-Care Condition: Good Chief Complaint: Abdominal Pain Prescriptions Prescriptions: No Action ondansetron 4 mg tablet,disintegrating 4 mg PO Q6H Qty: 30 0RF Creon 6,000-19,000 -30,000 unit capsule,delayed release(DR/EC) 1 cap PO DAILY Qty: 30 0RF epinephrine [EpiPen 2-Luis] 0.3 mg/0.3 mL auto-injector 0.3 mg IM Q5-15M PRN (Reason: anaphylaxis) Qty: 2 0RF Rx Instructions: do not exceed 3 doses per episode gabapentin 600 mg tablet 600 mg PO BID Qty: 60 0RF hydrocodone-acetaminophen 5-325 mg tablet 1 tab PO QID PRN (Reason: pain) Qty: 120 0RF pantoprazole 40 mg tablet,delayed release (DR/EC) See Rx Instructions .ROUTE .COMPLEX Qty: 30 0RF Dose Instruction: TAKE 1 TABLET BY MOUTH EVERY DAY Rx Instructions: TAKE 1 TABLET BY MOUTH EVERY DAY Referrals Follow up/Referrals: Provider,Referral, MD [Primary Care Provider] - See instructions Activity Restrictions/Add. Instructions Additional Instructions/Restrictions: Continue morphine for pain. Continue Phenergan for nausea. Clinical Impressions Clinical Impression: Chronic pancreatitis, Chronic abdominal pain Instructions Patient Instructions: DI for Acute Abdominal Pain Discharge ED Provider: Bong [facility] HPI General Chief Complaint: Abdominal Pain Stated Complaint: pain in Lt side to back, nausea, vomiting Time Seen by Provider: 05/10/22 14:02 Mode of Arrival: Ambulatory Source of Information: Patient Limitations: No Limitations Description of Symptoms (Recalled from ER Triage Doc. by RN): c/o left uppper abdomen pain that travels around to her back with n/v. States she has a hx of pancreatitis for one year and this feels like that pain. She had a surgery to fix the pancreatitis in February but it didnt fix it. History of Present Illness HPI narrative: Patient states that she lives in [facility]. She is visiting here, just arrived yesterday. She states that she has ectopic pancreatitis for the past year with chronic pain and over the past couple of days pain has gotten worse. Associated with nausea and vomiting. Pain is left upper quadrant radiating around to her back. She states that she had surgery for her pancreatitis but it did not help. She brings in an MRI CD disc that she says shows for pancreatitis, because it does not show up on CAT scans and does not show up on blood work. She says that she has had 13 CT scans this year and has been told she should not have any more. She says that she is wanting help to get her pain and nausea under control. She states that she is on morphine 15 mg as needed for pain. She will be returning to [place] next week. Related Data Previous Rx's Medication Instructions Recorded epinephrine 0.3 mg/0.3 mL 0.3 mg (0.3 mL) IM Q5-15M PRN 05/16/21 injection, auto-injector (EpiPen anaphylaxis #2 ea 2-Luis) gabapentin 600 mg tablet 600 mg PO BID #60 tabs 05/16/21 hydrocodone 5 mg-acetaminophen 325 1 tab PO QID PRN pain #120 tabs 05/16/21 mg tablet [id number] 1 cap PO DAILY #30 caps 05/16/21 6,000-19,000-30,000 unit capsule,delayed rel (Creon) ondansetron 4 mg disintegrating 4 mg PO Q6H #30 tabs 05/16/21 tablet pantoprazole 40 mg tablet,delayed See Rx Instructions .Route 06/07/21 release .COMPLEX #30 tabs Allergies Allergy/AdvReac Type Severity Reaction Status Date / Time Iodinated Contrast Media Allergy Severe Anaphylaxis Verified 05/16/21 11:21 [IODINATED CONTRAST MEDIA - IV DYE] codeine [CODEINE] Allergy Unknown SWELLING Verified 05/16/21 11:21 iodine [IODINE] Allergy Unknown Anaphylaxis Verified 05/16/21 11:21 loperamide [LOPERAMIDE] Allergy Unknown Rash Verified 05/16/21 11:21 shellfish derived Allergy Unknown SWELLING Verified 05/16/21 11:21 [From SHELLFISH (FOOD/DRUG)] From SHELLFISH (FOOD/DRUG) Allergy Unknown SWELLING Uncoded 05/16/21 11:21 PFSH PFS
--- NOTE | 2022-05-10 14:25 | PC.NURSE ---
unable to obtain IV, pt does not any more attempts, IM medicine for pain and nausea, pt is ok with IM injection.
[2022-05-10 14:51] VITALS: BP 133/86; PULSE 106; RESP 18; TEMP 36.6; O2SAT 97
[2022-05-10 14:59] LABS: Microscopic, Urine URINE MICROSCOPIC (MICROSCOPIC)
[2022-05-10 15:03] LABS: Appearance,Urine CLEAR (Clear); Bilirubin,Urine Negative (Negative); Blood, Urine Negative (Negative); Color,Urine YELLOW (Yellow); Glucose,Urine (UA) Negative (Negative); Ketones,Urine Negative (Negative); Leukocyte Esterase,Urine 1+ (Negative); Nitrate,Urine Negative (Negative); Protein,Urine Negative (Negative); Urobilinogen,Urine 0.2 EU/dl (0.2)
[2022-05-10 15:27] LABS: Bacteria,Urine 2+ /lpf
== END 2022-05-10 14:53 | disposition home or self-care (01) ==
PROVIDERS: Emergency Provider Emergency Medicine
DX: K86.1 Other chronic pancreatitis (principal); K86.81 Exocrine pancreatic insufficiency; R11.2 Nausea with vomiting, unspecified; G89.29 Other chronic pain; M54.9 Dorsalgia, unspecified; Z79.899 Other long term (current) drug therapy; Z88.5 Allergy status to narcotic agent; Z88.8 Allergy status to other drugs, medicaments and biological substances; Z91.041 Radiographic dye allergy status; Z91.013 Allergy to seafood
CPT/HCPCS: 81001; 87086; 96361; 96372; 96374; 96375; 99284

== ENCOUNTER 2024-05-15 11:14 | Emergency (ER) | payer OTHER, SELFPAY ==
[2024-05-15 11:37] VITALS: BP 145/123; PULSE 88; O2SAT 98
[2024-05-15 11:40] VITALS: BP 145/123; PULSE 85; RESP 18; TEMP 36.6; O2SAT 99; BMI 31.6
--- NOTE | 2024-05-15 11:45 | PC.NURSE ---
iv attempted by ZAHIRA Cross unsuccessful at this time. waiting on US
--- NOTE | 2024-05-15 11:46 | PC.NURSE ---
DR JAMESON AT BEDSIDE
--- NOTE | 2024-05-15 11:47 | PC.NURSE ---
Pt. laying in bed at this time. no needs at this bettie. Call light in reach
--- NOTE | 2024-05-15 12:14 | CT_ITS ---
FINAL REPORT TECHNIQUE: Axial images through the abdomen and pelvis were performed without contrast. This study was performed with techniques to keep radiation doses as low as reasonably achievable, (ALARA). Individualized dose reduction techniques using automated exposure control or adjustment of mA and/or kV according to the patient's size were employed. CLINICAL HISTORY: contrast allergy, acute on chronic panc FINDINGS: Abdomen: There is a calcified granuloma at the left base. The liver parenchyma is homogeneous. The gallbladder is surgically absent. The spleen, pancreas, adrenals and kidneys are unremarkable. Gastric sleeve is identified. Pelvis: The appendix is not identified. The urinary bladder is unremarkable. There is no pelvic mass or inflammation. IMPRESSION: No acute abnormality. Reviewed, Interpreted and Dictated by Ever Ryder MD Transcribed by Margarita Francis Authenticated and . [facility]
--- NOTE | 2024-05-15 12:15 | PC.NURSE ---
DR JAMESON AT BEDSIDE FOR US GUIDED IV AND LABS
[2024-05-15 12:28] LABS: Microscopic, Urine URINE MICROSCOPIC (MICROSCOPIC)
--- NOTE | 2024-05-15 12:30 | PC.NURSE ---
PT TO MEDICATED AND TRANSPORTED TO CT [facility].
[2024-05-15 12:33] LABS: Appearance,Urine CLEAR (Clear); Blood, Urine Negative (Negative); Color,Urine YELLOW (Yellow); Glucose,Urine (UA) Negative (Negative); Ketones,Urine TRACE (Negative); Leukocyte Esterase,Urine 1+ (Negative); Nitrate,Urine Negative (Negative); Protein,Urine 1+ (Negative); Specific Gravity, Urine >= 1.030 (1.005-1.030)
[2024-05-15] MEDS: HYDROMORPHONE 2MG/ML SYRINGE 0.5 MG IV (12:34)
[2024-05-15] MEDS: ONDANSETRON 4MG/2ML VIAL 4 MG IV (12:34)
[2024-05-15 12:45] LABS: Bilirubin,Urine 2+ (Negative)
--- NOTE | 2024-05-15 12:47 | HMH.EDGENADL ---
Discharge Plan Disposition Patient Disposition: Home, Self-Care Condition: Good Prescriptions Prescriptions: New oxycodone 5 mg tablet 5 mg PO Q8H PRN (Reason: pain) Qty: 12 0RF pantoprazole 40 mg tablet,delayed release (DR/EC) 40 mg PO DAILY Qty: 30 0RF promethazine 25 mg tablet 25 mg PO Q6H PRN (Reason: nausea and vomiting) Qty: 12 0RF No Action ondansetron 4 mg tablet,disintegrating 4 mg PO Q6H Qty: 30 0RF Creon 6,000-19,000 -30,000 unit capsule,delayed release(DR/EC) 1 cap PO DAILY Qty: 30 0RF epinephrine [EpiPen 2-Luis] 0.3 mg/0.3 mL auto-injector 0.3 mg IM Q5-15M PRN (Reason: anaphylaxis) Qty: 2 0RF Rx Instructions: do not exceed 3 doses per episode gabapentin 600 mg tablet 600 mg PO BID Qty: 60 0RF hydrocodone-acetaminophen 5-325 mg tablet 1 tab PO QID PRN (Reason: pain) Qty: 120 0RF pantoprazole 40 mg tablet,delayed release (DR/EC) See Rx Instructions .ROUTE .COMPLEX Qty: 30 0RF Dose Instruction: TAKE 1 TABLET BY MOUTH EVERY DAY Rx Instructions: TAKE 1 TABLET BY MOUTH EVERY DAY Referrals Follow up/Referrals: Provider,Referral, MD [Primary Care Provider] - See instructions Activity Restrictions/Add. Instructions Additional Instructions/Restrictions: Please chicken picker your medications at the pharmacy and take as prescribed. Follow-up closely with your primary care team. Clinical Impressions Clinical Impression: Acute on chronic pancreatitis, Gastritis Instructions Patient Instructions: DI for Acute Abdominal Pain Print Language Print Language: Swedish Discharge ED Provider: Aicha Donis General Adult HPI <Norman Montes MD - Last Filed: 05/15/24 15:24> General Chief complaint: Abdominal Pain Stated complaint: abd pain Time Seen by Provider: 05/15/24 11:36 Mode of Arrival: Ambulatory Source of Information: Patient Limitations: No Limitations Description of Symptoms (Recalled from ER Triage Doc. by RN): pt c/o n/v generalized abd pain started last night. pt has chronic pancreatitis from past surgery. pt hypertensive on triage didnt take morning meds. History of Present Illness HPI narrative: Please note that above description of symptoms, in this electronic medical record under categorization of recalled from ER triage doctor by RN are reflective of an initial nursing assessment, however, is not reflective of my full history and physical exam that was personally taken and clarified. Consequentially, this preceding description of symptoms, which may include the patient's categorized chief complaint in the EMR, do not reflect my personal clinical impression, and the ultimate description of history of present illness and patient stated complaints should be deferred to this section of the note. Unless stated otherwise or congruent with this section of the note, additional signs, symptoms, or incongruence should be interpreted as inaccurate with my clinical impression. Related Data Previous Rx's ?Medication ?Instructions ?Recorded epinephrine 0.3 mg/0.3 mL 0.3 mg (0.3 mL) IM Q5-15M PRN 05/16/21 injection, auto-injector (EpiPen anaphylaxis #2 ea 2-Luis) gabapentin 600 mg tablet 600 mg PO BID #60 tabs 05/16/21 hydrocodone 5 mg-acetaminophen 325 1 tab PO QID PRN pain #120 tabs 05/16/21 mg tablet bfivho-hgftepdz-edldaka 1 cap PO DAILY #30 caps 05/16/21 6,000-19,000-30,000 unit capsule,delayed rel (Creon) ondansetron 4 mg disintegrating 4 mg PO Q6H #30 tabs 05/16/21 tablet pantoprazole 40 mg tablet,delayed See Rx Instructions .Route 06/07/21 release .COMPLEX #30 tabs oxycodone 5 mg tablet 5 mg PO Q8H PRN pain #12 tabs 05/15/24 pantoprazole 40 mg tablet,delayed 40 mg PO DAILY #30 tabs 05/15/24 release promethazine 25 mg tablet 25 mg PO Q6H PRN nausea and 05/15/24 vomiting #12 tabs Allergies Allergy/AdvReac Type Severity Reaction Status Date / Time Iodinated Contrast Media Allergy Severe Anaphylaxis Verified 05/16/21 11:21 (IODINATED CONTRAST MEDIA - IV DYE) codeine (CODEINE) Allergy Unknown SWELLING Verified 05/16/21 11:21 iodine (IODINE) Allergy Unknown Anaphylaxis Verified 05/16/21 11:21 loperamide (LOPERAMIDE) Allergy Unknown Rash Verified 05/16/21 11:21 shellfish derived (From Allergy Unknown SWELLING Verified 05/16/21 11:21 SHELLFISH (FOOD/DRUG)) From SHELLFISH (FOOD/DRUG) Allergy Unknown SWELLING Uncoded 05/16/21 11:21 [facility] <Norman Montes MD - Last Filed: 05/15/24 15:24> [facility] Disclaimer: The information contained in this section may have been updated after the patient was seen, as this information can be updated by other users. Social History Smoking Status: Never smoker alcohol intake: never substance use type: denies use current occupational status: other Travel in the last 8 weeks: None household members: family housing: house Have you lived/traveled outside [place] in past 30 days?: No Contact w/someone who lives/traveled outside [place] past 30 days?: No Exposure to someone with infectious disease in past 14 days?: No Do you have a fever (greater than 100.4 F or 38 C)?: No Have you tested positive for COVID-19: No Exposed to someone with COVID-19 in past 14 days?: No Do you have a sore throat?: No Do you have a cough?: No Do you have any weakness?: No Do you have any diarrhea?: No Are you experiencing any unusual bleeding?: No Do you have any muscle aches/pain?: No Do you have any abdominal pain?: No Are you experiencing loss of taste or smell?: No Other Medical History Have you received the Flu Vaccine for this season: No Have you received the Pneumonia Vaccine: No <Norman Montes MD - Last Filed: 05/15/24 15:24> ROS Obtained: Yes All systems reviewed & no additional complaints except as documented Physical Exam <Norman Montes MD - Last Filed: 05/15/24 15:24> General General appearance: alert, in distress (Appears to be in mild distress secondary to pain, distractible) and obese Head Head exam: atraumatic and normocephalic Eye Eye exam: Present normal appearance, PERRL and EOMI Neck Neck exam: Present normal inspection, full ROM and trachea midline Respiratory Respiratory exam: Absent respiratory distress, wheezes, stridor, accessory muscle use or prolonged expiratory phase Cardiovascular Cardiovascular exam: Present other (Pulses equal symmetric in upper and lower extremities) Abdominal Exam Abdominal exam: Present soft and tenderness; Absent distention, guarding, rebound, rigidity or pulsatile mass Abdominal tenderness: Present mild Extremities Exam Extremities exam: Absent edema Neurological Exam Neurological exam: Present alert, oriented X3 and CN II-XII intact; Absent motor sensory deficit Skin Skin exam: Present warm and dry; Absent diaphoresis or erythema Medical Decision Making <Norman Montes MD - Last Filed: 05/15/24 15:24> Medical Records Medical records reviewed: Yes I reviewed the patient's medical records. Screening: Per USPSTF and CDC recommendations, given the prevalence of disease in our region, it is our hospital?s policy to screen for HIV and viral Hepatitis for all patients aged 18 and over and those with ongoing risk factors. Misha Inquiry Pt receiving controlled substance: No Misha was queried for this patient: No Vital Signs: 05/15/24 11:37 05/15/24 11:40 05/15/24 18:14 Temperature 97.9 F Temperature Source Oral Pulse Rate 88 109 H Pulse Rate [Right Radial] 85 Respiratory Rate 18 Blood Pressure 145/123 H 155/107 H Blood Pressure [Right Arm] 145/123 H Blood Pressure Mean 125 Blood Pressure Mean [Right Arm] 130 Blood Pressure Source Blood Pressure Source [Right Arm] Automatic Cuff Blood Pressure Position Blood Pressure Position [Right Arm] Sitting 02 Sat by Pulse Oximetry 98 99 94 L Oxygen Delivery Method Room Air Room Air 05/15/24 18:17 Temperature 98.2 F Temperature Source Oral Pulse Rate 112 H Pulse Rate [Right Radial] Respiratory Rate 18 Blood Pressure 144/81 H Blood Pressure [Right Arm] Blood Pressure Mean Blood Pressure Mean [Right Arm] Blood Pressure Source Automatic Cuff Blood Pressure Source [Right Arm] Blood Pressure Position Sitting Blood Pressure Position [Right Arm] 02 Sat by Pulse Oximetry Oxygen Delivery Method Room Air Lab Data Lab Results 05/15/24 11:35: Urine Color Yellow, Urine Appearance Clear, Urine pH 6.0, Ur Specific [place] >= 1.030, Urine Protein 1+ A, Urine Glucose (UA) Negative, Urine Ketones Trace, Urine Blood Negative, Urine Nitrate Negative, Urine Bilirubin 2+ A, Urine Urobilinogen 1.0, Ur Leukocyte Esterase 1+ A, Urine RBC None, Urine WBC 3-5, Ur Squamous Epith Cells 5-10, Urine Bacteria Trace 05/15/24 13:55: WBC 5.0, RBC 4.39, Hgb 14.0, Hct 40.6, MCV 92.5, MCH 31.9 H, MCHC 34.5, RDW 13.3, Plt Count 185, MPV 10.9 H, Neut % (Auto) 55.7, Lymph % (Auto) 36.9, [place] % (Auto) 5.8, Eos % (Auto) 0.8, Baso % (Auto) 0.6, Neut # (Auto) 2.8, Lymph # (Auto) 1.9, [place] # (Auto) 0.3, Eos # (Auto) 0.0, Baso # (Auto) 0.0, Sodium 137, Potassium 3.5, Chloride 107, Carbon Dioxide 23, Anion Gap 10.5, BUN 14, Creatinine 0.70, Estimated Creat Clear 138, Estimated GFR 90, Est GFR ( Amer) 109, Glucose 92, Calcium 9.3, Magnesium 1.9, Total Bilirubin 0.7, AST 26, ALT 35, Alkaline Phosphatase 76, Troponin I < 0.01, NT-Pro-B Natriuret Pep 308 H, Total Protein 6.0 L, Albumin 4.0, Globulin 2.0, Albumin/Globulin Ratio 2.0 H, Lipase 38 05/15/24 13:55 05/15/24 13:55 Orders (Tests/Meds): ED MEDICATIONS Discontinued Medications Generic Name Dose Route Start Last Admin Trade Name Freq PRN Reason Stop Dose Admin Belladonna Alkaloids 60 ml 05/15/24 15:33 05/15/24 15:58 Belladonna Alkaloids 60 Ml Ml PO 05/15/24 15:34 60 ml ONCE ONE Administration Hydromorphone HCl 0.5 mg 05/15/24 12:14 05/15/24 12:34 Hydromorphone 2mg/Ml Syringe IV 05/15/24 12:15 0.5 mg ONCE ONE Administration Hydromorphone HCl 2 mg 05/15/24 16:32 05/15/24 16:55 Hydromorphone 2mg/Ml Syringe IV 05/15/24 16:33 2 mg ONCE ONE Administration Ondansetron HCl 4 mg 05/15/24 12:14 05/15/24 12:34 Ondansetron 4mg/2ml Vial IV 05/15/24 12:15 4 mg ONCE ONE Administration Ondansetron HCl 4 mg 05/15/24 17:31 05/15/24 17:40 Ondansetron 4mg/2ml Vial IV 05/15/24 17:32 Not Given ONCE ONE Ondansetron HCl 4 mg 05/15/24 17:39 05/15/24 17:40 Ondansetron 4mg Odt SL 05/15/24 17:40 4 mg ONCE ONE Administration ORDERS Category Date Time Status CT abdomen pelvis wo con Stat Cat Scan 05/15/24 12:14 Completed Complete Blood Count Auto Diff Stat Lab 05/15/24 13:55 Completed Comprehensive Metabolic Panel Stat Lab 05/15/24 13:55 Completed Lipase Stat Lab 05/15/24 13:55 Completed Magnesium Stat Lab 05/15/24 13:55 Completed NT Pro Brain Natriuretic Pep. Stat Lab 05/15/24 13:55 Completed Troponin I Stat Lab 05/15/24 13:55 Completed Urinalysis and Microscopic Stat Lab 05/15/24 11:35 Completed Urine Culture Stat Micro 05/15/24 11:35 Received Medical Decision Narrative: 43-year-old female history of chronic pancreatitis, hysterectomy, cholecystectomy, appendectomy presenting with abdominal pain. Patient states this feels just like her chronic pancreatitis. She had acute flareup yesterday, 05/14, continued into today. Intermittent nausea without vomiting, no diarrhea. No fevers or systemic signs or symptoms. Moderate in intensity, radiates to her back, feels just like previous bouts of pancreatitis. No urinary symptoms. History was obtained via conversation with patient. On arrival, patient hemodynamically stable, alert, oriented x4, appropriate, GCS 15, moving all extremities spontaneously, pupils equal and reactive to light. Full physical exam performed and significant for obese female who appears to be in mild distress secondary to pain. Abdomen really not that tender on my exam. No evidence of peritonitis certainly. No overlying skin changes. Differential includes PUD, gastritis, enteritis, gastroenteritis, pancreatitis, SBO, colitis, diverticulitis, nephrolithiasis, UTI, hepatitis, aortic pathology, mesenteric ischemia among others. Patient placed on continuous cardiac monitoring and continuous pulse ox with initial blood pressure 145/123, heart rate 88, saturation 98% on room air. Patient was given Dilaudid and Zofran for symptomatic management and correction of underlying abnormalities. Workup independently interpreted and significant for nonactionable hematologic labs. On independent interpretation of imaging, negative abdominal imaging. There are actually no CT findings consistent with chronic pancreatitis either. See radiology read for full review of final results. On reevaluation, patient appears to have distractible exam. Not tearful or in any acute distress, on her phone when looking from the door, however when walking, patient immediately becomes tearful and put the phone down. Unsure if patient is actually in pain, or if this is distractible, pain medication seeking behavior. On further conversation, patient states that she has had numerous admissions with normal labs with abdominal pain, and needing admissions for multiple days multiple times over the past couple of years for pain control. Also states that she has sought port and deep line placement, but has not been able to find a doctor who will do it. I asked patient if this is pain consistent with admissions in the past, she said yes. Results were relayed to her and although knowing they were negative, requesting admission. I contacted the hospital physician here and interactive discussion was had, he would like to visit patient and determine need for admission given negative labs and imaging. Prior to this evaluation, care handed off to oncoming physician. Special Collections Librarian disclaimer Much of this encounter note is an electronic dredge deckhand spoken language to printed text. Electronic dredge deckhand of the spoken language may permit errors. Although I have reviewed the note, some errors may still exist. <Aicha Donis, DO - Last Filed: 05/15/24 21:57> Misha Inquiry Pt receiving controlled substance: Yes Misha was queried for this patient: Yes Risks and benefits of using a controlled substance: were discussed with pt by me Vital Signs: 05/15/24 11:37 05/15/24 11:40 05/15/24 18:14 Temperature 97.9 F Temperature Source Oral Pulse Rate 88 109 H Pulse Rate [Right Radial] 85 Respiratory Rate 18 Blood Pressure 145/123 H 155/107 H Blood Pressure [Right Arm] 145/123 H Blood Pressure Mean 125 Blood Pressure Mean [Right Arm] 130 Blood Pressure Source Blood Pressure Source [Right Arm] Automatic Cuff Blood Pressure Position Blood Pressure Position [Right Arm] Sitting 02 Sat by Pulse Oximetry 98 99 94 L Oxygen Delivery Method Room Air Room Air 05/15/24 18:17 Temperature 98.2 F Temperature Source Oral Pulse Rate 112 H Pulse Rate [Right Radial] Respiratory Rate 18 Blood Pressure 144/81 H Blood Pressure [Right Arm] Blood Pressure Mean Blood Pressure Mean [Right Arm] Blood Pressure Source Automatic Cuff Blood Pressure Source [Right Arm] Blood Pressure Position Sitting Blood Pressure Position [Right Arm] 02 Sat by Pulse Oximetry Oxygen Delivery Method Room Air Lab Data Lab Results 05/15/24 11:35: Urine Color Yellow, Urine Appearance Clear, Urine pH 6.0, Ur Specific [place] >= 1.030, Urine Protein 1+ A, Urine Glucose (UA) Negative, Urine Ketones Trace, Urine Blood Negative, Urine Nitrate Negative, Urine Bilirubin 2+ A, Urine Urobilinogen 1.0, Ur Leukocyte Esterase 1+ A, Urine RBC None, Urine WBC 3-5, Ur Squamous Epith Cells 5-10, Urine Bacteria Trace 05/15/24 13:55: WBC 5.0, RBC 4.39, Hgb 14.0, Hct 40.6, MCV 92.5, MCH 31.9 H, MCHC 34.5, RDW 13.3, Plt Count 185, MPV 10.9 H, Neut % (Auto) 55.7, Lymph % (Auto) 36.9, [place] % (Auto) 5.8, Eos % (Auto) 0.8, Baso % (Auto) 0.6, Neut # (Auto) 2.8, Lymph # (Auto) 1.9, [place] # (Auto) 0.3, Eos # (Auto) 0.0, Baso # (Auto) 0.0, Sodium 137, Potassium 3.5, Chloride 107, Carbon Dioxide 23, Anion Gap 10.5, BUN 14, Creatinine 0.70, Estimated Creat Clear 138, Estimated GFR 90, Est GFR ( Amer) 109, Glucose 92, Calcium 9.3, Magnesium 1.9, Total Bilirubin 0.7, AST 26, ALT 35, Alkaline Phosphatase 76, Troponin I < 0.01, NT-Pro-B Natriuret Pep 308 H, Total Protein 6.0 L, Albumin 4.0, Globulin 2.0, Albumin/Globulin Ratio 2.0 H, Lipase 38 Orders (Tests/Meds): ED MEDICATIONS Discontinued Medications Generic Name Dose Route Start Last Admin Trade Name Freq PRN Reason Stop Dose Admin Belladonna Alkaloids 60 ml 05/15/24 15:33 05/15/24 15:58 Belladonna Alkaloids 60 Ml Ml PO 05/15/24 15:34 60 ml ONCE ONE Administration Hydromorphone HCl 0.5 mg 05/15/24 12:14 05/15/24 12:34 Hydromorphone 2mg/Ml Syringe IV 05/15/24 12:15 0.5 mg ONCE ONE Administration Hydromorphone HCl 2 mg 05/15/24 16:32 05/15/24 16:55 Hydromorphone 2mg/Ml Syringe IV 05/15/24 16:33 2 mg ONCE ONE Administration Ondansetron HCl 4 mg 05/15/24 12:14 05/15/24 12:34 Ondansetron 4mg/2ml Vial IV 05/15/24 12:15 4 mg ONCE ONE Administration Ondansetron HCl 4 mg 05/15/24 17:31 05/15/24 17:40 Ondansetron 4mg/2ml Vial IV 05/15/24 17:32 Not Given ONCE ONE Ondansetron HCl 4 mg 05/15/24 17:39 05/15/24 17:40 Ondansetron 4mg Odt SL 05/15/24 17:40 4 mg ONCE ONE Administration ORDERS Category Date Time Status CT abdomen pelvis wo con Stat Cat Scan 05/15/24 12:14 Completed Complete Blood Count Auto Diff Stat Lab 05/15/24 13:55 Completed Comprehensive Metabolic Panel Stat Lab 05/15/24 13:55 Completed Lipase Stat Lab 05/15/24 13:55 Completed Magnesium Stat Lab 05/15/24 13:55 Completed NT Pro Brain Natriuretic Pep. Stat Lab 05/15/24 13:55 Completed Troponin I Stat Lab 05/15/24 13:55 Completed Urinalysis and Microscopic Stat Lab 05/15/24 11:35 Completed Urine Culture Stat Micro 05/15/24 11:35 Received Medical Decision Narrative: 43-year-old female history of chronic pancreatitis, hysterectomy, cholecystectomy, appendectomy presenting with abdominal pain. Patient states this feels just like her chronic pancreatitis. She had acute flareup yesterday, 05/14, continued into today. Intermittent nausea without vomiting, no diarrhea. No fevers or systemic signs or symptoms. Moderate in intensity, radiates to her back, feels just like previous bouts of pancreatitis. No urinary symptoms. History was obtained via conversation with patient. On arrival, patient hemodynamically stable, alert, oriented x4, appropriate, GCS 15, moving all extremities spontaneously, pupils equal and reactive to light. Full physical exam performed and significant for obese female who appears to be in mild distress secondary to pain. Abdomen really not that tender on my exam. No evidence of peritonitis certainly. No overlying skin changes. Differential includes PUD, gastritis, enteritis, gastroenteritis, pancreatitis, SBO, colitis, diverticulitis, nephrolithiasis, UTI, hepatitis, aortic pathology, mesenteric ischemia among others. Patient placed on continuous cardiac monitoring and continuous pulse ox with initial blood pressure 145/123, heart rate 88, saturation 98% on room air. Patient was given Dilaudid and Zofran for symptomatic management and correction of underlying abnormalities. Workup independently interpreted and significant for nonactionable hematologic labs. On independent interpretation of imaging, negative abdominal imaging. There are actually no CT findings consistent with chronic pancreatitis either. See radiology read for full review of final results. On reevaluation, patient appears to have distractible exam. Not tearful or in any acute distress, on her phone when looking from the door, however when walking, patient immediately becomes tearful and put the phone down. Unsure if patient is actually in pain, or if this is distractible, pain medication seeking behavior. On further conversation, patient states that she has had numerous admissions with normal labs with abdominal pain, and needing admissions for multiple days multiple times over the past couple of years for pain control. Also states that she has sought port and deep line placement, but has not been able to find a doctor who will do it. I asked patient if this is pain consistent with admissions in the past, she said yes. Results were relayed to her and although knowing they were negative, requesting admission. I contacted the hospital physician here and interactive discussion was had, he would like to visit patient and determine need for admission given negative labs and imaging. Prior to this evaluation, care handed off to oncoming physician. Special Collections Librarian disclaimer Much of this encounter note is an electronic dredge deckhand spoken language to printed text. Electronic dredge deckhand of the spoken language may permit errors. Although I have reviewed the note, some errors may still exist. DO Gagandeep: On my assessment of the patient, she is still tearful, requesting to be admitted for pain control with IV Dilaudid. I gave her an additional dose of IV Dilaudid, and I again had a discussion with the hospitalist. He feels that the patient does not require admission based on reassuring labs, imaging, workup. He advised that I should discharge her home with a short course of pain medication to get her through until she can get back home to her specialist team. I did provide her with a prescription for oxycodone. I also gave her PPI as well as Phenergan. Strict return precautions were given Critical Care <Norman Montes MD - Last Filed: 05/15/24 15:24> Critical Care Time Critical Care Time: No
--- NOTE | 2024-05-15 12:50 | PC.NURSE ---
attempted to draw labs from iv. line will not flush or draw. iv DC at this time.
[2024-05-15 13:01] LABS: Bacteria,Urine Trace /lpf
--- NOTE | 2024-05-15 13:45 | PC.NURSE ---
CALLED LAB TO ASSIST WITH BLOOD COLLECTION UNTIL WE CAN ESTABLISH NEW IV ACCESS
--- NOTE | 2024-05-15 13:59 | PC.NURSE ---
LAB AT BEDSIDE FOR LAB DRAW
[2024-05-15 14:17] LABS: Chloride 107 mmol/L (98-107); Potassium 3.5 mmoL/L (3.5-5.1); Sodium 137 mmol/L (136-145)
[2024-05-15 14:18] LABS: Basophils % 0.6 % (0.1-2.0); Eosinophils % 0.8 % (0.1-12.0); Hematocrit 40.6 % (37.0-47.0); Lymphocytes % 36.9 % (10-50); Mean Corpuscular HGB Conc 34.5 g/dL (31.8-35.4); Mean Corpuscular Hemoglobin 31.9 pg (27.0-31.2); Mean Corpuscular Volume 92.5 fl (81-99); Mean Platelet Volume 10.9 fl (7.4-10.4); Monocytes % 5.8 % (1.7-9.3); Neutrophils % 55.7 % (37.0-80.0); Platelet Count 185 K/mm3 (142-424); Red Blood Count 4.39 M/mm3 (4.20-5.40); Red Cell Distribution Width 13.3 % (11.5-17.5)
[2024-05-15 14:19] LABS: Lymphocytes # 1.9 K/mm3 (0.7-4.5); Monocytes # 0.3 K/mm3 (0.1-1.0); Neutrophils # 2.8 K/mm3 (1.8-7.8)
[2024-05-15 14:20] LABS: Alanine Aminotransferase 35 U/L (12-78); Alkaline Phosphatase 76 U/L (38-126); Anion Gap 10.5 mEq/L (5-15); Aspartate Amino Transferase 26 U/L (14-36); Bilirubin,Total 0.7 mg/dl (0.2-1.3); Blood Urea Nitrogen 14 mg/dl (7-17); Calcium 9.3 mg/dl (8.4-10.2); Carbon Dioxide 23 mmol/L (22.0-30.0); Creatinine Clearance Estimated 138 mL/min (50-200); Estimated Glomerular Filt Rate 90 ml/min (>60); GFR (African American) 109 ML/MIN (>60); Glucose 92 mg/dl (74-100); Lipase 38 U/L (23-300)
[2024-05-15 14:21] LABS: Magnesium 1.9 mg/dl (1.6-2.3)
[2024-05-15 14:30] LABS: NT Pro Brain Natriuretic Pep. 308 pg/mL (0-125)
--- NOTE | 2024-05-15 14:31 | PC.NURSE ---
DR JAMESON AT BEDSIDE
[2024-05-15 14:36] LABS: Troponin I < 0.01 ng/ml (0.00-0.034)
--- NOTE | 2024-05-15 15:05 | PC.NURSE ---
DR JAMESON SPEAKING WITH DR SHEN FOR ADMISSION
--- NOTE | 2024-05-15 15:10 | EXP.MED.CON ---
History of Present Illness *Admission Date: 05/15/24 *Reason for visit:: abdominal pain *History of present illness: Ms. Barber is a 43-year-old female with history complicated by chronic pancreatitis, history of lap band placement, chronic pancreatic insufficiency, chronic opiate therapy, neuropathy, obesity. She presents today with concern for acute flareup of her chronic pancreatitis. She has been having intermittent nausea and vomiting. No diarrhea. Denies any fevers, shortness of breath, chest pain. Pain has been moderate in intensity in her upper abdomen. States she is having a hard time keeping liquids down. Reports multiple previous bouts of pancreatitis and her symptoms feel similar. They have had to admit me for up to a month before in [place] to control my pain . Denies any blood in her vomit. Workup in the ER with CT of abdomen and labs showed normal lipase, unremarkable pancreas with no calcifications or peripancreatic stranding or cysts on CT of abdomen. Mild tenderness on exam and upper abdomen. Given her hallmark symptoms and history but in conjunction with normal labs and imaging, medicine was consulted to evaluate for possible admission versus discharge home. On my evaluation, upon entering the room patient is scrolling on her phone and appears comfortable. She notices I have stepped in the room, her disposition changes. She stable on room air. Hemodynamically stable. Afebrile. States that she knows that it is her pancreatitis. Requesting admission as she is worried her symptoms will continue. She states when it gets like this it takes Dilaudid to get it under control . Discussed p.o. challenge, patient open to trying GI cocktail. Observed that she drank entire 60 mL bottle. Able to keep medication down. [facility] Disclaimer: The information contained in this section may have been updated after the patient was seen, as this information can be updated by other users. Social History Smoking Status: Never smoker alcohol intake: never substance use type: denies use current occupational status: other Travel in the last 8 weeks: None household members: family housing: house Have you lived/traveled outside [place] in past 30 days?: No Contact w/someone who lives/traveled outside US past 30 days?: No Exposure to someone with infectious disease in past 14 days?: No Do you have a fever (greater than 100.4 F or 38 C)?: No Have you tested positive for COVID-19: No Exposed to someone with COVID-19 in past 14 days?: No Do you have a sore throat?: No Do you have a cough?: No Do you have any weakness?: No Do you have any diarrhea?: No Are you experiencing any unusual bleeding?: No Do you have any muscle aches/pain?: No Do you have any abdominal pain?: No Are you experiencing loss of taste or smell?: No Review of Systems Review of Systems Review of systems (narrative): 14 point review of systems performed, pertinent positives and negatives as per HPI Exam Data for Last 24 hours Vital signs and Labs for Last 24 Hours: Temp Pulse Resp BP Pulse Ox O2 Del Method 97.9 F 85 18 145/123 H 99 Room Air 05/15/24 11:40 05/15/24 11:40 05/15/24 11:40 05/15/24 11:40 05/15/24 11:40 05/15/24 11:40 Laboratory Results - last 24 hr 05/15/24 11:35: Urine Color Yellow, Urine Appearance Clear, Urine pH 6.0, Ur Specific [place] >= 1.030, Urine Protein 1+ A, Urine Glucose (UA) Negative, Urine Ketones Trace, Urine Blood Negative, Urine Nitrate Negative, Urine Bilirubin 2+ A, Urine Urobilinogen 1.0, Ur Leukocyte Esterase 1+ A, Urine RBC None, Urine WBC 3-5, Ur Squamous Epith Cells 5-10, Urine Bacteria Trace 05/15/24 13:55: WBC 5.0, RBC 4.39, Hgb 14.0, Hct 40.6, MCV 92.5, MCH 31.9 H, MCHC 34.5, RDW 13.3, Plt Count 185, MPV 10.9 H, Neut % (Auto) 55.7, Lymph % (Auto) 36.9, Stokes % (Auto) 5.8, Eos % (Auto) 0.8, Baso % (Auto) 0.6, Neut # (Auto) 2.8, Lymph # (Auto) 1.9, Stokes # (Auto) 0.3, Eos # (Auto) 0.0, Baso # (Auto) 0.0, Sodium 137, Potassium 3.5, Chloride 107, Carbon Dioxide 23, Anion Gap 10.5, BUN 14, Creatinine 0.70, Estimated Creat Clear 138, Estimated GFR 90, Est GFR ( Amer) 109, Glucose 92, Calcium 9.3, Magnesium 1.9, Total Bilirubin 0.7, AST 26, ALT 35, Alkaline Phosphatase 76, Troponin I < 0.01, NT-Pro-B Natriuret Pep 308 H, Total Protein 6.0 L, Albumin 4.0, Globulin 2.0, Albumin/Globulin Ratio 2.0 H, Lipase 38 I & O for Last 24 hours: Intake & Output 05/12/24 05/13/24 05/14/24 05/15/24 23:59 23:59 23:59 23:59 Weight 86.183 kg Constitutional Constitutional: no acute distress, obese and cooperative *Routine HEENT Exam Head: Present normocephalic Eye: Present EOMI and PERRL ENT: Present mucous membranes moist *Routine Neck Exam Neck: Present supple; Absent lymphadenopathy *Routine Respiratory Exam Respiratory: Present CTA bilaterally; Absent rhonchi, wheezes or crackles *Routine Cardiovascular Exam Cardiovascular: Present RRR *Routine Abdominal Exam Abdominal: Present soft, normoactive bowel sounds and tenderness (mild epigastric and left upper quadrant); Absent distended or rebound *Routine Rectal Exam Patient deferred: visual exam *Routine Exam Patient deferred: external exam *Routine Extremities Exam Extremities: Absent cyanosis, clubbing or edema *Routine Skin Exam Skin: Present warm; Absent rash *Routine Neurological Exam Neurological: Present alert, oriented X3 and moving all extremities; Absent altered mental status Routine Psychiatric Exam Psychiatric: Present anxious Meds Home Medications and Allergies Home Medications ?Medication ?Instructions ?Recorded ?Confirmed ?Type epinephrine 0.3 mg/0.3 mL 0.3 mg (0.3 mL) IM Q5-15M PRN 05/16/21 05/16/21 Rx injection, auto-injector (EpiPen anaphylaxis #2 ea 2-Luis) gabapentin 600 mg tablet 600 mg PO BID #60 tabs 05/16/21 05/16/21 Rx hydrocodone 5 mg-acetaminophen 325 1 tab PO QID PRN pain #120 tabs 05/16/21 05/16/21 Rx mg tablet erwtoy-lhcrzfke-kkfipjs 1 cap PO DAILY #30 caps 05/16/21 05/16/21 Rx 6,000-19,000-30,000 unit capsule,delayed rel (Creon) ondansetron 4 mg disintegrating 4 mg PO Q6H #30 tabs 05/16/21 05/16/21 Rx tablet pantoprazole 40 mg tablet,delayed See Rx Instructions .Route 06/07/21 Rx release .COMPLEX #30 tabs oxycodone 5 mg tablet 5 mg PO Q8H PRN pain #12 tabs 05/15/24 Rx pantoprazole 40 mg tablet,delayed 40 mg PO DAILY #30 tabs 05/15/24 Rx release promethazine 25 mg tablet 25 mg PO Q6H PRN nausea and 05/15/24 Rx vomiting #12 tabs New Prescriptions to Start Prescriptions: oxycodone Aicha Donis pantoprazole Aicha Donis promethazine Aicha Donis Allergies Allergy/AdvReac Type Severity Reaction Status Date / Time Iodinated Contrast Media Allergy Severe Anaphylaxis Verified 05/16/21 11:21 (IODINATED CONTRAST MEDIA - IV DYE) codeine (CODEINE) Allergy Unknown SWELLING Verified 05/16/21 11:21 iodine (IODINE) Allergy Unknown Anaphylaxis Verified 05/16/21 11:21 loperamide (LOPERAMIDE) Allergy Unknown Rash Verified 05/16/21 11:21 shellfish derived (From Allergy Unknown SWELLING Verified 05/16/21 11:21 SHELLFISH (FOOD/DRUG)) From SHELLFISH (FOOD/DRUG) Allergy Unknown SWELLING Uncoded 05/16/21 11:21 Results Labs 05/15/24 13:55 05/15/24 13:55 Labs: Abnormal lab results 05/15/24 05/15/24 Range/Units 11:35 13:55 MCH 31.9 H (27.0-31.2) pg MPV 10.9 H (7.4-10.4) fl NT-Pro-B Natriuret Pep 308 H (0-125) pg/mL Total Protein 6.0 L (6.3-8.2) g/dl Albumin/Globulin Ratio 2.0 H (1.1-1.8) Urine Protein 1+ A (Negative) Urine Bilirubin 2+ A (Negative) Ur Leukocyte Esterase 1+ A (Negative) H & H 05/15/24 Range/Units 13:55 Hgb 14.0 (12.2-16.2) g/dL Hct 40.6 (37.0-47.0) % All other labs normal. Assessment and Plan *Assessment and plan (1) Gastritis: Status: Acute Category: Medical Code(s): K29.70 - Gastritis, unspecified, without bleeding (2) Chronic abdominal pain: Status: Acute Category: Medical Code(s): R10.9 - Unspecified abdominal pain; G89.29 - Other chronic pain (3) Chronic pancreatitis: Status: Acute Category: Medical Code(s): K86.1 - Other chronic pancreatitis (4) Obesity (BMI 30.0-34.9): Status: Acute Category: Medical Code(s): E66.811 - Obesity, class 1 (5) Chronic, continuous use of opioids: Status: Acute Category: Medical Code(s): F11.90 - Opioid use, unspecified, uncomplicated Plan Ms. Barber 43-year-old female with complex GI past history. Presented with nausea and vomiting and little over 24 hours of abdominal pain. On evaluation, workup with normal lipase, CT showing no stranding or pancreatic calcifications per my review and official review from radiology. Able to tolerate p.o. intake with GI cocktail without further emesis. Given her normal white count of 5, hemoglobin 14, electrolytes normal with sodium 137, potassium 3.5, kidney function normal with BUN 14, creatinine 0.7, LFTs normal with bilirubin 0.7, AST 26, ALT 35, alk phos 76, I see no acute need for admission. Recommend adding PPI to her regimen for gastritis component. Recommend short course of high-dose oral pain medication to help with discomfort. Encourage p.o. fluids. Patient stating her symptoms only get better with Dilaudid. Sometimes she has to be admitted for up to a month in [place] to get her symptoms resolved. Strong concern for secondary gain in light of normal imaging, normal labs, tolerance of p.o. intake. Recommend she follow-up with her specialists and [place] for further evaluation and management. Stable to discharge. Recommendation and findings discussed with ER physician.
--- NOTE | 2024-05-15 15:31 | PC.NURSE ---
DR SHEN AT BEDSIDE
--- NOTE | 2024-05-15 15:36 | PC.NURSE ---
hospitilist at bedside
[2024-05-15] MEDS: BELLADONNA ALKALOIDS 60 ML ML PO (15:58)
[2024-05-15] MEDS: HYDROMORPHONE 2MG/ML SYRINGE 2 MG IV (16:55)
[2024-05-15] MEDS: ONDANSETRON 4MG ODT 4 MG SL (17:40)
--- NOTE | 2024-05-15 18:01 | PC.NURSE ---
DR SHEN AT BEDSIDE
[2024-05-15 18:14] VITALS: BP 155/107; PULSE 109; O2SAT 94
[2024-05-15 18:17] VITALS: BP 144/81; PULSE 112; RESP 18; TEMP 36.8; O2SAT 96
== END 2024-05-15 18:21 | disposition home or self-care (01) ==
PROVIDERS: Emergency Medicine; Emergency Provider Emergency Medicine
DX: K85.90 Acute pancreatitis without necrosis or infection, unspecified (principal); K29.70 Gastritis, unspecified, without bleeding; F11.90 Opioid use, unspecified, uncomplicated; E66.811 Obesity, class 1; R10.84 Generalized abdominal pain; I10 Essential (primary) hypertension; Z68.34 Body mass index [BMI] 34.0-34.9, adult
CPT/HCPCS: 74176; 80053; 81001; 83690; 83735; 83880; 84484; 85025; 87086; 96374; 96375; 99285; J1171; J2405; Q0162

== ENCOUNTER 2024-05-21 12:07 | Emergency (ER) | payer OTHER, SELFPAY ==
[2024-05-21] VITALS (18 sets, daily range): BP systolic 143–197; BP diastolic 77–156; PULSE 79–136; RESP 9–24; TEMP 36.8; O2SAT 92–99; BMI 31.6
--- NOTE | 2024-05-21 12:25 | ED_ITS ---
Discharge Plan Disposition Patient Disposition: Home, Self-Care Condition: Good Prescriptions Prescriptions: New ondansetron 4 mg tablet,disintegrating 4 mg PO Q8H PRN (Reason: nausea and vomiting) 3 Days Qty: 9 0RF promethazine 12.5 mg suppository 12.5 mg MO TID PRN (Reason: allergy symptoms) Qty: 9 0RF Rx Instructions: do not give 3rd daily dose after evening meal or within 4hr before bed No Action ondansetron 4 mg tablet,disintegrating 4 mg PO Q6H Qty: 30 0RF Creon 6,000-19,000 -30,000 unit capsule,delayed release(DR/EC) 1 cap PO DAILY Qty: 30 0RF epinephrine [EpiPen 2-Luis] 0.3 mg/0.3 mL auto-injector 0.3 mg IM Q5-15M PRN (Reason: anaphylaxis) Qty: 2 0RF Rx Instructions: do not exceed 3 doses per episode gabapentin 600 mg tablet 600 mg PO BID Qty: 60 0RF hydrocodone-acetaminophen 5-325 mg tablet 1 tab PO QID PRN (Reason: pain) Qty: 120 0RF pantoprazole 40 mg tablet,delayed release (DR/EC) See Rx Instructions .ROUTE .COMPLEX Qty: 30 0RF Dose Instruction: TAKE 1 TABLET BY MOUTH EVERY DAY Rx Instructions: TAKE 1 TABLET BY MOUTH EVERY DAY oxycodone 5 mg tablet 5 mg PO Q8H PRN (Reason: pain) Qty: 12 0RF pantoprazole 40 mg tablet,delayed release (DR/EC) 40 mg PO DAILY Qty: 30 0RF promethazine 25 mg tablet 25 mg PO Q6H PRN (Reason: nausea and vomiting) Qty: 12 0RF Referrals Follow up/Referrals: Provider,Referral, MD [Primary Care Provider] - See instructions Activity Restrictions/Add. Instructions Additional Instructions/Restrictions: You were seen for abdominal pain. Please follow-up with your GI doctor. Return to the ER if you are unable to hold down fluids. Clinical Impressions Clinical Impression: Chronic pancreatitis Instructions Patient Instructions: DI for Acute Abdominal Pain Print Language Print Language: Tamazight Discharge ED Provider: Colt Tate General Adult HPI <ABHISHEK Bear - Last Filed: 05/21/24 16:12> General Chief complaint: Abdominal Pain Stated complaint: passed out x3, atopic pancreatitis Time Seen by Provider: 05/21/24 12:14 Mode of Arrival: Wheelchair Source of Information: Patient Limitations: No Limitations Description of Symptoms (Recalled from ER Triage Doc. by RN): pt has been here a few times before for this cc, pt is from [place] and here unitl 05/27. pt has chronic pancreatitis and has n/v as well as today has passed out 3 times History of Present Illness HPI narrative: Patient presents complaining of generalized 8/10 abdominal pain and nausea and vomiting. She reports a history of chronic pancreatitis. She does take Tylenol 3 and Phenergan typically. She reports that she has not been able to hold anything down today. She reports that she had 3 syncopal episodes with standing today. She reports that each time she did hit her head and is complaining of headache. Denies any fever. complaint: N/V, abdominal pain Onset (ago): hour(s) Location: head and abdomen Radiation: non-radiation Severity: moderate Severity scale (1-10): 8 Consistency: constant Relieving factors: none Exacerbating factors: none Associated symptoms: nausea/vomiting and syncope; negative fever/chills Related Data Previous Rx's ?Medication ?Instructions ?Recorded epinephrine 0.3 mg/0.3 mL 0.3 mg (0.3 mL) IM Q5-15M PRN 05/16/21 injection, auto-injector (EpiPen anaphylaxis #2 ea 2-Luis) gabapentin 600 mg tablet 600 mg PO BID #60 tabs 05/16/21 hydrocodone 5 mg-acetaminophen 325 1 tab PO QID PRN pain #120 tabs 05/16/21 mg tablet epcses-yxbefmhi-roziqwo 1 cap PO DAILY #30 caps 05/16/21 6,000-19,000-30,000 unit capsule,delayed rel (Creon) ondansetron 4 mg disintegrating 4 mg PO Q6H #30 tabs 05/16/21 tablet pantoprazole 40 mg tablet,delayed See Rx Instructions .Route 06/07/21 release .COMPLEX #30 tabs oxycodone 5 mg tablet 5 mg PO Q8H PRN pain #12 tabs 05/15/24 pantoprazole 40 mg tablet,delayed 40 mg PO DAILY #30 tabs 05/15/24 release promethazine 25 mg tablet 25 mg PO Q6H PRN nausea and 05/15/24 vomiting #12 tabs ondansetron 4 mg disintegrating 4 mg PO Q8H PRN nausea and 05/21/24 tablet vomiting 3 days #9 tabs promethazine 12.5 mg rectal 12.5 mg MO TID PRN allergy 05/21/24 suppository symptoms #9 ea Allergies Allergy/AdvReac Type Severity Reaction Status Date / Time Iodinated Contrast Media Allergy Severe Anaphylaxis Verified 05/16/21 11:21 (IODINATED CONTRAST MEDIA - IV DYE) codeine (CODEINE) Allergy Unknown SWELLING Verified 05/16/21 11:21 iodine (IODINE) Allergy Unknown Anaphylaxis Verified 05/16/21 11:21 loperamide (LOPERAMIDE) Allergy Unknown Rash Verified 05/16/21 11:21 shellfish derived (From Allergy Unknown SWELLING Verified 05/16/21 11:21 SHELLFISH (FOOD/DRUG)) From SHELLFISH (FOOD/DRUG) Allergy Unknown SWELLING Uncoded 05/16/21 11:21 [facility] <ABHISHEK Bear - Last Filed: 05/21/24 16:12> [facility] Disclaimer: The information contained in this section may have been updated after the patient was seen, as this information can be updated by other users. Social History Smoking Status: Current every day smoker alcohol intake: never substance use type: denies use current occupational status: other Travel in the last 8 weeks: None household members: family housing: house Have you lived/traveled outside US in past 30 days?: No Contact w/someone who lives/traveled outside US past 30 days?: No Exposure to someone with infectious disease in past 14 days?: No Do you have a fever (greater than 100.4 F or 38 C)?: No Have you tested positive for COVID-19: No Exposed to someone with COVID-19 in past 14 days?: No Do you have a sore throat?: No Do you have a cough?: No Do you have any weakness?: No Do you have any diarrhea?: No Are you experiencing any unusual bleeding?: No Do you have any muscle aches/pain?: No Do you have any abdominal pain?: No Are you experiencing loss of taste or smell?: No Other Medical History Have you received the Flu Vaccine for this season: No Have you received the Pneumonia Vaccine: No <ABHISHEK Bear - Last Filed: 05/21/24 16:12> ROS Obtained: Yes Systems reviewed as appropriate & no additional complaints except as documented Physical Exam <ABHISHEK Bear Last Filed: 05/21/24 16:12> General General appearance: alert and in no apparent distress Head Head exam: atraumatic and normocephalic Eye Eye exam: Present normal appearance and EOMI Chest Chest inspection: Present symmetric chest wall rise Respiratory Respiratory exam: Present normal lung sounds bilaterally; Absent wheezes or stridor Cardiovascular Cardiovascular exam: Present regular rate and normal rhythm; Absent systolic murmur Abdominal Exam Abdominal exam: Present soft and tenderness (upper abdomen, bilaterally ); Absent distention or rebound Extremities Exam Extremities exam: Present full ROM Neurological Exam Neurological exam: Present alert and oriented X3 Psychiatric Psychiatric exam: Present normal affect and normal mood Skin Skin exam: Present warm, dry and intact Medical Decision Making <ABHISHEK Bear Last Filed: 05/21/24 16:12> Medical Records Screening: Per USPSTF and CDC recommendations, given the prevalence of disease in our region, it is our hospital?s policy to screen for HIV and viral Hepatitis for all patients aged 18 and over and those with ongoing risk factors. Vital Signs: 05/21/24 12:08 05/21/24 12:13 05/21/24 12:16 Temperature 98.2 F Temperature Source Oral Pulse Rate 136 H 126 H Pulse Rate [Left Radial] 79 Respiratory Rate 20 18 Blood Pressure 197/141 H 175/104 H Blood Pressure [Right Arm] 175/104 H Blood Pressure Mean [Right Arm] 127 02 Sat by Pulse Oximetry 96 97 97 Oxygen Delivery Method Room Air Room Air Room Air 05/21/24 12:53 05/21/24 12:58 05/21/24 13:00 Temperature Temperature Source Pulse Rate 109 H 104 H 103 H Pulse Rate [Left Radial] Respiratory Rate 19 24 22 Blood Pressure 169/145 H 189/156 H 176/115 H Blood Pressure [Right Arm] Blood Pressure Mean [Right Arm] 02 Sat by Pulse Oximetry 98 96 97 Oxygen Delivery Method Room Air Room Air Room Air 05/21/24 13:07 05/21/24 13:31 05/21/24 14:01 Temperature Temperature Source Pulse Rate 104 H 105 H 111 H Pulse Rate [Left Radial] Respiratory Rate 9 L 14 12 Blood Pressure 183/114 H 165/119 H 179/133 H Blood Pressure [Right Arm] Blood Pressure Mean [Right Arm] 02 Sat by Pulse Oximetry 96 99 99 Oxygen Delivery Method Room Air Room Air Room Air 05/21/24 14:34 05/21/24 14:45 05/21/24 15:00 Temperature Temperature Source Pulse Rate 121 H 104 H 108 H Pulse Rate [Left Radial] Respiratory Rate 21 15 15 Blood Pressure Blood Pressure [Right Arm] Blood Pressure Mean [Right Arm] 02 Sat by Pulse Oximetry 92 L 99 99 Oxygen Delivery Method 05/21/24 15:01 05/21/24 15:15 05/21/24 15:30 Temperature Temperature Source Pulse Rate 110 H 111 H 122 H Pulse Rate [Left Radial] Respiratory Rate 17 15 16 Blood Pressure 186/104 H Blood Pressure [Right Arm] Blood Pressure Mean [Right Arm] 02 Sat by Pulse Oximetry 99 98 99 Oxygen Delivery Method 05/21/24 15:31 05/21/24 15:33 05/21/24 15:43 Temperature 98.2 F 98.2 F Temperature Source Pulse Rate 120 H 79 80 Pulse Rate [Left Radial] Respiratory Rate 13 20 20 Blood Pressure 143/77 H 143/87 H 143/77 H Blood Pressure [Right Arm] Blood Pressure Mean [Right Arm] 02 Sat by Pulse Oximetry 98 98 Oxygen Delivery Method Room Air Room Air Lab Data Lab Results 05/21/24 12:50: WBC 5.7, RBC 4.42, Hgb 14.1, Hct 40.5, MCV 91.6, MCH 31.9 H, MCHC 34.8, RDW 13.8, Plt Count 218, MPV 9.9, Neut % (Auto) 62.0, Lymph % (Auto) 31.5, [place] % (Auto) 5.6, Eos % (Auto) 0.2, Baso % (Auto) 0.5, Neut # (Auto) 3.5, Lymph # (Auto) 1.8, [place] # (Auto) 0.3, Eos # (Auto) 0.0, Baso # (Auto) 0.0, Sodium 143, Potassium 3.5, Chloride 105, Carbon Dioxide 29, Anion Gap 12.5, BUN 11, Creatinine 0.80, Estimated Creat Clear 121, Estimated GFR 78, Est GFR ( Amer) 94, Glucose 103 H, Calcium 10.2, Total Bilirubin 0.8, AST 29, ALT 30, Alkaline Phosphatase 81, Troponin I < 0.01, Total Protein 7.6 D, Albumin 5.1 H, Globulin 2.5, Albumin/Globulin Ratio 2.0 H, Lipase 94 05/21/24 13:07: VBG pH 7.39, VBG pCO2 43.9, VBG pO2 31.7, VBG HCO3 25.9, VBG Total CO2 27.3 H, VBG O2 Saturation 62.4, VBG Base Excess 0.9, VBG Lactic Acid 2.4 H 05/21/24 14:29: Urine Color Yellow, Urine Appearance Clear, Urine pH 6.5, Ur Specific [place] 1.010, Urine Protein Negative, Urine Glucose (UA) Negative, Urine Ketones Negative, Urine Blood Negative, Urine Nitrate Negative, Urine Bilirubin Negative, Urine Urobilinogen 0.2, Ur Leukocyte Esterase Negative, Urine RBC 3-5, Urine WBC Occasional, Ur Squamous Epith Cells 3-5, Urine Bacteria 2+ 05/21/24 12:50 05/21/24 12:50 Orders (Tests/Meds): ED MEDICATIONS Discontinued Medications Generic Name Dose Route Start Last Admin Trade Name Freq PRN Reason Stop Dose Admin Hydromorphone HCl 1 mg 05/21/24 13:56 05/21/24 14:01 Hydromorphone 2mg/Ml Syringe IV 05/21/24 13:57 1 mg ONCE ONE Administration Sodium Chloride 1,000 mls @ 999 mls/hr 05/21/24 12:30 05/21/24 13:03 Sod Chlor 0.9% 1000ml Bag IV 05/21/24 13:30 999 mls/hr .Q1H1M LIYAH Administration Morphine Sulfate 4 mg 05/21/24 12:21 05/21/24 13:04 Morphine 4mg/Ml Syringe IV 05/21/24 12:22 4 mg ONCE ONE Administration Ondansetron HCl 4 mg 05/21/24 12:21 05/21/24 13:04 Ondansetron 4mg/2ml Vial IV 05/21/24 12:22 4 mg ONCE ONE Administration Promethazine HCl 12.5 mg 05/21/24 13:56 05/21/24 14:01 Promethazine Hcl 25mg/Ml 1ml Vial IV 05/21/24 13:57 12.5 mg ONCE ONE Administration Sodium Chloride 25 ml 05/21/24 13:56 05/21/24 14:07 Sodium Chloride 0.9% 25ml Bag IV 05/21/24 13:57 25 ml ONCE ONE Administration ORDERS Category Date Time Status CT head/brain wo con Stat Cat Scan 05/21/24 12:25 Completed Complete Blood Count Auto Diff Stat Lab 05/21/24 12:50 Completed Comprehensive Metabolic Panel Stat Lab 05/21/24 12:50 Completed Lipase Stat Lab 05/21/24 12:50 Completed Troponin I Stat Lab 05/21/24 12:50 Completed Urinalysis and Microscopic Stat Lab 05/21/24 14:29 Completed Urine Culture Stat Micro 05/21/24 14:29 Received VBG [Venous Blood Gas] Stat RT 05/21/24 13:[address] CT Scan: Head Findings Narrative: IMPRESSION: No CT evidence of acute brain injury. Medical Decision Narrative: In summary patient is a 43-year-old who presents the emergency department for evaluation of headache and abdominal pain, syncope. Patient is tachycardic, hypertensive upon arrival, afebrile. Tenderness in the upper abdomen on exam. Differential diagnosis includes acute on chronic pancreatitis, dehydration, arrhythmia. Initial workup will be conducted with labs, EKG, urinalysis, CT head. Patient did have a CT abdomen and pelvis within the last 2 weeks, reports that her pain is similar and typical for her pancreatitis, will hold off on any repeat imaging. Initial inventions include IV fluids, morphine and Zofran. Initial workup reviewed by me unremarkable labs, CT brain negative. Upon repeat evaluation patient is tolerating p.o. Given this patient is appropriate for discharge at this time with a prescription for Zofran and rectal Phenergan. Advised to follow-up with her GI doctor.. Colt Tate: I was consulted by the MERCEDES, and we discussed the complexity of the problems being addressed. I approved the treatment and management plan for this patient's care in the emergency department, thus performing a substantive portion of the medical decision making. Patient has history of chronic pancreatitis and had pain similar to her chronic pancreatitis with recent diagnostic imaging within the last week without acute process. Given this initial CT imaging was deferred of the abdomen pelvis however history of falls she got a CT of her head. Hematologic labs were obtained initially which are reviewed by me and are nonactionable, compensated acid-base status, no PRABHU or critical electrolyte abnormality, initial troponin undetectably low urinalysis interpreted by me and not consistent with infection. Repeat evaluation patient had persistent pain for MERCEDES for which patient was given a single dose of Dilaudid. Noncontrasted CT scan of the head and repeat pain evaluation pending at time of transition of care to the oncoming physician, Dr. Montes. <Colt Tate MD - Last Filed: 05/21/24 15:44> Misha Inquiry Pt receiving controlled substance: No Vital Signs: 05/21/24 12:08 05/21/24 12:13 05/21/24 12:16 Temperature 98.2 F Temperature Source Oral Pulse Rate 136 H 126 H Pulse Rate [Left Radial] 79 Respiratory Rate 20 18 Blood Pressure 197/141 H 175/104 H Blood Pressure [Right Arm] 175/104 H Blood Pressure Mean [Right Arm] 127 02 Sat by Pulse Oximetry 96 97 97 Oxygen Delivery Method Room Air Room Air Room Air 05/21/24 12:53 05/21/24 12:58 05/21/24 13:00 Temperature Temperature Source Pulse Rate 109 H 104 H 103 H Pulse Rate [Left Radial] Respiratory Rate 19 24 22 Blood Pressure 169/145 H 189/156 H 176/115 H Blood Pressure [Right Arm] Blood Pressure Mean [Right Arm] 02 Sat by Pulse Oximetry 98 96 97 Oxygen Delivery Method Room Air Room Air Room Air 05/21/24 13:07 05/21/24 13:31 05/21/24 14:01 Temperature Temperature Source Pulse Rate 104 H 105 H 111 H Pulse Rate [Left Radial] Respiratory Rate 9 L 14 12 Blood Pressure 183/114 H 165/119 H 179/133 H Blood Pressure [Right Arm] Blood Pressure Mean [Right Arm] 02 Sat by Pulse Oximetry 96 99 99 Oxygen Delivery Method Room Air Room Air Room Air 05/21/24 14:34 05/21/24 14:45 05/21/24 15:00 Temperature Temperature Source Pulse Rate 121 H 104 H 108 H Pulse Rate [Left Radial] Respiratory Rate 21 15 15 Blood Pressure Blood Pressure [Right Arm] Blood Pressure Mean [Right Arm] 02 Sat by Pulse Oximetry 92 L 99 99 Oxygen Delivery Method 05/21/24 15:01 05/21/24 15:15 05/21/24 15:30 Temperature Temperature Source Pulse Rate 110 H 111 H 122 H Pulse Rate [Left Radial] Respiratory Rate 17 15 16 Blood Pressure 186/104 H Blood Pressure [Right Arm] Blood Pressure Mean [Right Arm] 02 Sat by Pulse Oximetry 99 98 99 Oxygen Delivery Method 05/21/24 15:31 05/21/24 15:33 05/21/24 15:43 Temperature 98.2 F 98.2 F Temperature Source Pulse Rate 120 H 79 80 Pulse Rate [Left Radial] Respiratory Rate 13 20 20 Blood Pressure 143/77 H 143/87 H 143/77 H Blood Pressure [Right Arm] Blood Pressure Mean [Right Arm] 02 Sat by Pulse Oximetry 98 98 Oxygen Delivery Method Room Air Room Air Lab Data Lab Results 05/21/24 12:50: WBC 5.7, RBC 4.42, Hgb 14.1, Hct 40.5, MCV 91.6, MCH 31.9 H, MCHC 34.8, RDW 13.8, Plt Count 218, MPV 9.9, Neut % (Auto) 62.0, Lymph % (Auto) 31.5, [place] % (Auto) 5.6, Eos % (Auto) 0.2, Baso % (Auto) 0.5, Neut # (Auto) 3.5, Lymph # (Auto) 1.8, [place] # (Auto) 0.3, Eos # (Auto) 0.0, Baso # (Auto) 0.0, Sodium 143, Potassium 3.5, Chloride 105, Carbon Dioxide 29, Anion Gap 12.5, BUN 11, Creatinine 0.80, Estimated Creat Clear 121, Estimated GFR 78, Est GFR ( Amer) 94, Glucose 103 H, Calcium 10.2, Total Bilirubin 0.8, AST 29, ALT 30, Alkaline Phosphatase 81, Troponin I < 0.01, Total Protein 7.6 D, Albumin 5.1 H, Globulin 2.5, Albumin/Globulin Ratio 2.0 H, Lipase 94 05/21/24 13:07: VBG pH 7.39, VBG pCO2 43.9, VBG pO2 31.7, VBG HCO3 25.9, VBG Total CO2 27.3 H, VBG O2 Saturation 62.4, VBG Base Excess 0.9, VBG Lactic Acid 2.4 H 05/21/24 14:29: Urine Color Yellow, Urine Appearance Clear, Urine pH 6.5, Ur Specific [place] 1.010, Urine Protein Negative, Urine Glucose (UA) Negative, Urine Ketones Negative, Urine Blood Negative, Urine Nitrate Negative, Urine Bilirubin Negative, Urine Urobilinogen 0.2, Ur Leukocyte Esterase Negative, Urine RBC 3-5, Urine WBC Occasional, Ur Squamous Epith Cells 3-5, Urine Bacteria 2+ Orders (Tests/Meds): ED MEDICATIONS Discontinued Medications Generic Name Dose Route Start Last Admin Trade Name Davis PRN Reason Stop Dose Admin Hydromorphone HCl 1 mg 05/21/24 13:56 05/21/24 14:01 Hydromorphone 2mg/Ml Syringe IV 05/21/24 13:57 1 mg ONCE ONE Administration Sodium Chloride 1,000 mls @ 999 mls/hr 05/21/24 12:30 05/21/24 13:03 Sod Chlor 0.9% 1000ml Bag IV 05/21/24 13:30 999 mls/hr .Q1H1M LIYAH Administration Morphine Sulfate 4 mg 05/21/24 12:21 05/21/24 13:04 Morphine 4mg/Ml Syringe IV 05/21/24 12:22 4 mg ONCE ONE Administration Ondansetron HCl 4 mg 05/21/24 12:21 05/21/24 13:04 Ondansetron 4mg/2ml Vial IV 05/21/24 12:22 4 mg ONCE ONE Administration Promethazine HCl 12.5 mg 05/21/24 13:56 05/21/24 14:01 Promethazine Hcl 25mg/Ml 1ml Vial IV 05/21/24 13:57 12.5 mg ONCE ONE Administration Sodium Chloride 25 ml 05/21/24 13:56 05/21/24 14:07 Sodium Chloride 0.9% 25ml Bag IV 05/21/24 13:57 25 ml ONCE ONE Administration ORDERS Category Date Time Status CT head/brain wo con Stat Cat Scan 05/21/24 12:25 Completed Complete Blood Count Auto Diff Stat Lab 05/21/24 12:50 Completed Comprehensive Metabolic Panel Stat Lab 05/21/24 12:50 Completed Lipase Stat Lab 05/21/24 12:50 Completed Troponin I Stat Lab 05/21/24 12:50 Completed Urinalysis and Microscopic Stat Lab 05/21/24 14:29 Completed Urine Culture Stat Micro 05/21/24 14:29 Received VBG [Venous Blood Gas] Stat RT 05/21/24 13:[address] Data Time Received: 12:30 ECG Data Tracing #1: Independently interpreted by me rate is 111, rhythm is regular, sinus tachycardia, axis is normal, no ST elevation in anatomical contiguous leads, QTc 383 Medical Decision Narrative: In summary patient is a 43-year-old who presents the emergency department for evaluation of headache and abdominal pain, syncope. Patient is tachycardic, hypertensive upon arrival, afebrile. Tenderness in the upper abdomen on exam. Differential diagnosis includes acute on chronic pancreatitis, dehydration, arrhythmia. Initial workup will be conducted with labs, EKG, urinalysis, CT head. Patient did have a CT abdomen and pelvis within the last 2 weeks, reports that her pain is similar and typical for her pancreatitis, will hold off on any repeat imaging. Initial inventions include IV fluids, morphine and Zofran. Initial workup reviewed by me unremarkable labs, CT brain negative. Upon repeat evaluation patient is tolerating p.o. Given this patient is appropriate for discharge at this time with a prescription for Zofran and rectal Phenergan. Advised to follow-up with her GI doctor.. Colt Tate: I was consulted by the MERCEDES, and we discussed the complexity of the problems being addressed. I approved the treatment and management plan for this patient's care in the emergency department, thus performing a substantive portion of the medical decision making. Patient has history of chronic pancreatitis and had pain similar to her chronic pancreatitis with recent diagnostic imaging within the last week without acute process. Given this initial CT imaging was deferred of the abdomen pelvis however history of falls she got a CT of her head. Hematologic labs were obtained initially which are reviewed by me and are nonactionable, compensated acid-base status, no PRABHU or critical electrolyte abnormality, initial troponin undetectably low urinalysis interpreted by me and not consistent with infection. Repeat evaluation patient had persistent pain for MERCEDES for which patient was given a single dose of Dilaudid. Noncontrasted CT scan of the head no acute intracranial abnormality. Upon repeat evaluation patient had resolved tachycardia, acceptable level of pain was tolerating p.o. at bedside. Patient will not be prescribed long-term opiates as this is not a sustainable plan and certainly not appropriate from the emergency department standpoint and will follow-up with GI for long-term control. Critical Care <Colt Tate MD - Last Filed: 05/21/24 15:44> Critical Care Time Critical Care Time: No
--- NOTE | 2024-05-21 12:25 | CT_ITS ---
PROCEDURE INFORMATION: Exam: CT Head Without Contrast Exam date and time: 05/21/2024 1:20 PM Age: 43 years old Clinical indication: Pain; Headache; Additional info: Headache after headinjury x 3 TECHNIQUE: Imaging protocol: Computed tomography of the head without contrast. Radiation optimization: All CT scans at this facility use at least one of these dose optimization techniques: automated exposure control; mA and/or kV adjustment per patient size (includes targeted exams where dose is matched to clinical indication); or iterative reconstruction. COMPARISON: HEADWO CT head/brain wo con 12/10/2017 2:55 PM FINDINGS: Brain: No CT evidence of acute infarct, hemorrhage, mass or mass effect. Cerebral ventricles: No ventriculomegaly. Paranasal sinuses: Visualized sinuses are unremarkable. No fluid levels. Mastoid air cells: Visualized mastoid air cells are well aerated. Bones: Stable hyperostosis frontalis. No acute osseous lesions. Soft tissues: Unremarkable. IMPRESSION: No CT evidence of acute brain injury.
--- NOTE | 2024-05-21 12:37 | ECG_ITS ---
APPROVED REPORT Exam: Resting ECG HR:111 bpm ECG Measurements Heart Rate 111 AXES WV 177 P 55 QRSd 72 QRS 41 QT 318 T 53 QTc 383 Conclusion SINUS TACHYCARDIA NONSPECIFIC ST & T-WAVE ABNORMALITY ABNORMAL RHYTHM ECG UNCONFIRMED REPORT Electronically signed by : JOSEF LOPEZ, 05/23/2024 06:52:41
[2024-05-21 13:02] LABS: Basophils % 0.5 % (0.1-2.0); Eosinophils % 0.2 % (0.1-12.0); Hematocrit 40.5 % (37.0-47.0); Hemoglobin 14.1 g/dL (12.2-16.2); Lymphocytes # 1.8 K/mm3 (0.7-4.5); Lymphocytes % 31.5 % (10-50); Mean Corpuscular HGB Conc 34.8 g/dL (31.8-35.4); Mean Corpuscular Hemoglobin 31.9 pg (27.0-31.2); Mean Corpuscular Volume 91.6 fl (81-99); Mean Platelet Volume 9.9 fl (7.4-10.4); Monocytes # 0.3 K/mm3 (0.1-1.0); Monocytes % 5.6 % (1.7-9.3); Neutrophils # 3.5 K/mm3 (1.8-7.8); Platelet Count 218 K/mm3 (142-424); Red Blood Count 4.42 M/mm3 (4.20-5.40); Red Cell Distribution Width 13.8 % (11.5-17.5); White Blood Count 5.7 K/mm3 (4.8-10.8)
[2024-05-21] MEDS: 0.9 % SODIUM CHLORIDE 1000ML 1,000 ML 999 ML IV (13:03)
[2024-05-21] MEDS: ONDANSETRON 4MG/2ML VIAL 4 MG IV (13:04)
[2024-05-21] MEDS: MORPHINE 4MG/ML SYRINGE 4 MG IV (13:04)
[2024-05-21 13:17] LABS: Alanine Aminotransferase 30 U/L (12-78); Albumin Level 5.1 g/dl (3.5-5.0); Alkaline Phosphatase 81 U/L (38-126); Anion Gap 12.5 mEq/L (5-15); Aspartate Amino Transferase 29 U/L (14-36); Bilirubin,Total 0.8 mg/dl (0.2-1.3); Blood Urea Nitrogen 11 mg/dl (7-17); Calcium 10.2 mg/dl (8.4-10.2); Carbon Dioxide 29 mmol/L (22.0-30.0); Chloride 105 mmol/L (98-107); Creatinine Clearance Estimated 121 mL/min (50-200); Estimated Glomerular Filt Rate 78 ml/min (>60); GFR (African American) 94 ML/MIN (>60); Globulin 2.5 g/dL (1.3-3.2); Glucose 103 mg/dl (74-100); Lipase 94 U/L (23-300); Potassium 3.5 mmoL/L (3.5-5.1); Sodium 143 mmol/L (136-145); Total Protein,Serum 7.6 g/dl (6.3-8.2)
[2024-05-21 13:19] LABS: VBG Base Excess 0.9 mmol/L (-2.4-2.3); VBG HCO3 25.9 mmol/L (23-30); VBG Oxygen Saturation 62.4 % (50-70); VBG PCO2 43.9 mmol/L (35-51); VBG PH 7.39 mmol/L (7.31-7.41); VBG PO2 31.7 mmol/L (28-40); VBG Total CO2 27.3 mmol/L (23-27)
[2024-05-21 13:20] LABS: Lactate Venous 2.4 mmol/L (0.4-2.0)
[2024-05-21 13:30] LABS: Troponin I < 0.01 ng/ml (0.00-0.034)
[2024-05-21] MEDS: HYDROMORPHONE 2MG/ML SYRINGE 1 MG IV (14:01)
[2024-05-21] MEDS: PROMETHAZINE HCL 25MG/ML 1ML VIAL 12.5 MG IV (14:01)
[2024-05-21] MEDS: SODIUM CHLORIDE 0.9% 25ML BAG 25 ML IV (14:07)
[2024-05-21 14:37] LABS: Microscopic, Urine URINE MICROSCOPIC (MICROSCOPIC)
[2024-05-21 14:38] LABS: Appearance,Urine CLEAR (Clear); Bilirubin,Urine Negative (Negative); Blood, Urine Negative (Negative); Color,Urine YELLOW (Yellow); Glucose,Urine (UA) Negative (Negative); Ketones,Urine Negative (Negative); Leukocyte Esterase,Urine Negative (Negative); Nitrate,Urine Negative (Negative); PH,Urine 6.5 (5.0-8.5); Protein,Urine Negative (Negative); Urobilinogen,Urine 0.2 EU/dl (0.2)
[2024-05-21 14:55] LABS: WBC,Urine Occasional #/hpf (0-3)
[2024-05-21 14:56] LABS: Bacteria,Urine 2+ /lpf
[2024-05-21 17:21] LABS: Reflex Lactic Add Lactic Reflex
== END 2024-05-21 15:44 | disposition home or self-care (01) ==
PROVIDERS: Physician Assistant; Emergency Provider Emergency Medicine
DX: K86.1 Other chronic pancreatitis (principal); R11.2 Nausea with vomiting, unspecified; R55 Syncope and collapse; R10.84 Generalized abdominal pain; K86.81 Exocrine pancreatic insufficiency
CPT/HCPCS: 70450; 80053; 81001; 82803; 83690; 84484; 85025; 87086; 93005; 96361; 96374; 96375; 99284; J1171; J2270; J2405; J2550; J7030

== ENCOUNTER 2025-04-15 13:50 | Observation (INO) | payer OTHER, SELFPAY ==
[2025-04-15] VITALS (7 sets, daily range): BP systolic 123–151; BP diastolic 85–97; PULSE 64–111; RESP 16–20; TEMP 36.6–36.8; O2SAT 96–100; BMI 30.7; BMI 32.3
--- NOTE | 2025-04-15 13:54 | ED_ITS ---
<Statement entered by Margie Altamirano DO - 04/15/25 17:43> I was consulted by the MERCEDES, and we discussed the complexity of problems being addressed. I approve the treatment and management plan for this patient's care in the emergency department, thus performing a substantial portion of the medical decision making. Margie Altamirano DO Discharge Plan Disposition Patient Disposition: Admitted Condition: Good Clinical Impressions Clinical Impression: Mesenteric adenitis, Abdominal pain, epigastric, History of hematemesis Abdominal pain Qualifiers: Abdominal location: left upper quadrant Qualified Code(s): R10.12 - Left upper quadrant pain Discharge ED Provider: Margie Altamirano General Adult HPI General Chief complaint: Abdominal Pain Stated complaint: vomiting up blood Time Seen by Provider: 04/15/25 13:56 History of Present Illness HPI narrative: Patient is a pleasant 44-year-old female in mild distress due to pain who presents to the emergency department with concerns for abdominal pain and vomiting up blood. Patient states that she has a history of pancreatitis and has been seen here and admitted to the ICU for anemia in the past. States that the current pain and vomiting has been happening for approximately 24 hours. Patient does have a picture which she states is the large amount of blood in her vomit. Patient complains of pain in the left lower back around to the left abdomen. Patient has history of hematemesis and melena along with the abdominal pain leading to anemia with multiple transfusions. Patient states that she was seen in the ICU in December 2024 to have multiple units of blood. States that since it began with the abdominal pain and the blood in the vomit she was nervous and came in today when it first started. Patient denies any fever and denies any other new diagnosis or illness; denies chest pain, shortness of breath, diarrhea. Onset (ago): day(s) Related Data Home Medications ?Medication ?Instructions ?Recorded ?Confirmed scopolamine base 1 mg over 3 days 1 patch transdermal 2XW 04/04/25 04/04/25 transdermal patch tizanidine 4 mg tablet 4 mg PO Q6H PRN 04/04/25 Previous Rx's ?Medication ?Instructions ?Recorded epinephrine 0.3 mg/0.3 mL 0.3 mg (0.3 mL) IM Q5-15M MT N 05/16/21 injection, auto-injector (EpiPen anaphylaxis #2 ea 2-Luis) gabapentin 600 mg tablet 600 mg PO BID #60 tabs 05/16 yrjabu-ybzeyqqq-cggblda 1 cap PO DAILY #30 caps 04/21 12/08 (pork)6,000-19,000-30,000 unit capsule,del rel (Creon) pantoprazole 40 mg tablet,delayed See Rx Instructions .Route 06/07/21 release .COMPLEX #30 tabs pantoprazole 40 mg tablet,delayed 40 mg PO DAILY #30 t abs 05/15/24 release promethazine 25 mg tablet 25 mg PO Q6H PRN nausea and 05/15/24 vomiting #12 tabs promethazine 12.5 mg rectal 12.5 mg MT TID PRN allergy 05/21/24 suppository symptoms #9 ea cephalexin 500 mg capsule 500 mg PO Q12H 10 days #20 c aps 04/04/25 Allergies Allergy/AdvReac Type Severity Reaction Status Date / Time Iodinated Contrast Media Allergy Severe Anaphylaxis Verified 04/04/25 11:27 (IODINATED CONTRAST MEDIA - IV DYE) codeine (CODEINE) Allergy Unknown SWELLING Verified 04/04/25 11:27 iodine (IODINE) Allergy Unknown Anaphylaxis Verified 04/04/25 11:27 loperamide (LOPERAMIDE) Allergy Unknown Rash Verified 04/04/25 11:27 shellfish derived (From Allergy Unknown SWELLING Verified 04/04/25 11:27 SHELLFISH (FOOD/DRUG)) ketorolac (From Toradol) Allergy Difficulty Verified 04/15/25 14:01 Breathing PFSH PFSH Disclaimer: The information contained in this section may have been updated after the patient was seen, as this information can be updated by other users. Social History Smoking Status: Never smoker alcohol intake: never substance use type: denies use current occupational status: other Travel in the last 8 weeks?: None household members: family housing: house Have you lived/traveled outside US in past 30 days?: No Contact w/someone who lives/traveled outside US past 30 days?: No Exposure to someone with infectious disease in past 14 days?: No Do you have a fever (greater than 100.4 F or 38 C)?: No Have you tested positive for COVID-19?: No Exposed to someone with COVID-19 in past 14 days?: No Do you have a sore throat?: No Do you have a cough?: No Do you have any weakness?: No Do you have any diarrhea?: No Are you experiencing any unusual bleeding?: Yes Do you have any muscle aches/pain?: No Do you have any abdominal pain?: No Are you experiencing loss of taste or smell?: No Other Medical History Have you received the Flu Vaccine for this season: No Have you received the Pneumonia Vaccine: No ROS Obtained: Yes Systems reviewed as appropriate & no additional complaints except as documented Physical Exam General General appearance: alert and in distress Head Head exam: atraumatic and normocephalic Eye Eye exam: Present normal appearance, PERRL and EOMI ENT ENT exam: Present normal exam and normal oropharynx Neck Neck exam: Present normal inspection and trachea midline Chest Chest inspection: Present normal inspection and symmetric chest wall rise; Absent tenderness Respiratory Respiratory exam: Present normal lung sounds bilaterally; Absent respiratory distress, wheezes or stridor Cardiovascular Cardiovascular exam: Present regular rate, normal rhythm, +S1 and +S2 Abdominal Exam Abdominal exam: Present soft and tenderness; Absent distention or rigidity Abdominal tenderness: Present LUQ (Tenderness to palpation noted) Comment: Tenderness in left flank around to left lumbar area and lower back noted Extremities Exam Extremities exam: Present normal inspection and full ROM Back Exam Back exam: Present normal inspection Neurological Exam Neurological exam: Present alert and oriented X3 Psychiatric Psychiatric exam: Present normal affect and normal mood Skin Skin exam: Present warm and dry Medical Decision Making Medical Records Medical records reviewed: Yes I reviewed the patient's medical records. Screening: Per USPSTF and CDC recommendations, given the prevalence of disease in our region, it is our hospital?s policy to screen for HIV and viral Hepatitis for all patients aged 18 and over and those with ongoing risk factors. Misha Inquiry Pt receiving controlled substance: No Vital Signs: 04/15/25 13:56 04/15/25 14:00 04/15/25 15:03 Temperature 98.3 F Temperature Source Oral Pulse Rate 110 H 103 H Pulse Rate [Right Brachial] 111 H Respiratory Rate 16 Blood Pressure 151/97 H 124/85 Blood Pressure [Right Arm] 151/97 H Blood Pressure Mean 106 Blood Pressure Mean [Right Arm] 115 Blood Pressure Source [Right Arm] Automatic Cuff Blood Pressure Position [Right Arm] Sitting 02 Sat by Pulse Oximetry 100 99 99 Oxygen Delivery Method Room Air Lab Data Lab results reviewed: Yes I reviewed the patient's lab results. Lab Results 04/15/25 14:22: Urine Color Yellow, Urine Appearance Clear, Urine pH 7.0, Ur Specific [place] 1.010, Urine Protein Negative, Urine Glucose (UA) Negative, Urine Ketones Negative, Urine Blood Negative, Urine Nitrate Negative, Urine Bilirubin Negative, Urine Urobilinogen 1.0, Ur Leukocyte Esterase Trace, Urine RBC None, Urine WBC 3-5, Ur Squamous Epith Cells 3-5, Amorphous Sediment 3+, Urine Bacteria None 04/15/25 14:29: WBC 4.0 L, RBC 3.82 L, Hgb 11.7 L, Hct 35.6 L, MCV 93.2, MCH 30.6, MCHC 32.9, RDW 13.2, Plt Count 186, MPV 10.1, Neut % (Auto) 64.3, Lymph % (Auto) 27.6, Pratt % (Auto) 6.0, Eos % (Auto) 1.3, Baso % (Auto) 0.8, Neut # (Auto) 2.6, Lymph # (Auto) 1.1, Pratt # (Auto) 0.2, Eos # (Auto) 0.1, Baso # (Auto) 0.0, Sodium 145, Potassium 4.1, Chloride 110 H, Carbon Dioxide 22, Anion Gap 17.1 H, BUN 15, Creatinine 0.60, Estimated Creat Clear 155, Estimated GFR 108, Est GFR ( Amer) 130, Glucose 93, Calcium 9.0, Total Bilirubin 0.6, AST 20, ALT 15, Alkaline Phosphatase 71, Total Protein 6.8, Albumin 4.3, Globulin 2.5, Albumin/Globulin Ratio 1.7, Lipase 54 04/15/25 14:29 04/15/25 14:29 Orders (Tests/Meds): ED MEDICATIONS Generic Name Dose Route Start Last Admin Trade Name Freq PRN Reason Stop Dose Admin Hydromorphone HCl 1 mg 04/15/25 16:58 Hydromorphone 2mg/Ml Syringe IV 05/15/25 16:57 Q4HP PRN Severe Pain (7-10) Ondansetron HCl 4 mg 04/15/25 16:58 Ondansetron 4mg/2ml Vial IV 05/15/25 16:57 Q6HP PRN Nausea Pantoprazole Sodium 40 mg 04/15/25 21:00 Pantoprazole 40mg Vial IV 05/15/25 20:59 BID LIYAH Senna/Docusate Sodium 1 tab 04/15/25 21:00 Sennosides 8.6mg/Docusate 50mg Tablet PO 05/15/25 20:59 BID LIYAH Sodium Chloride 10 ml 04/15/25 13:59 Sodium Chloride 0.9% 10ml Flush Syringe IV 05/15/25 13:58 NEEDED PRN Maintain IV Site Sucralfate 1 gm 04/15/25 21:00 Sucralfate 1gm/10ml Susp Udc PO 05/15/25 20:59 ACHS LIYAH Discontinued Medications Generic Name Dose Route Start Last Admin Trade Name Freq PRN Reason Stop Dose Admin Droperidol 2.5 mg 04/15/25 16:39 04/15/25 16:56 Droperidol 5mg/2ml Vial IV 04/15/25 16:40 2.5 mg ONCE ONE Administration Hydromorphone HCl 0.5 mg 04/15/25 13:59 04/15/25 14:33 Hydromorphone 2mg/Ml Syringe IV 04/15/25 14:00 0.5 mg ONCE ONE Administration Hydromorphone HCl 0.5 mg 04/15/25 15:36 04/15/25 15:40 Hydromorphone 2mg/Ml Syringe IV 04/15/25 15:37 0.5 mg ONCE ONE Administration Sodium Chloride 1,000 mls @ 999 mls/hr 04/15/25 14:00 04/15/25 16:09 Sod Chlor 0.9% 1000ml Bag IV 04/15/25 15:00 Infused .Q1H1M LIYAH Infusion Pantoprazole Sodium 80 mg/ 100 mls @ 100 mls/hr 04/15/25 13:59 04/15/25 15:44 Sodium Chloride IV 04/15/25 14:58 Infused ONCE ONE Infusion Metoclopramide HCl 10 mg 04/15/25 16:18 04/15/25 16:24 Metoclopramide Hcl 10mg/2ml Vial IVP 04/15/25 16:19 10 mg ONCE ONE Administration Ondansetron HCl 4 mg 04/15/25 13:59 04/15/25 14:33 Ondansetron 4mg/2ml Vial IV 04/15/25 14:00 4 mg ONCE ONE Administration Sodium Phosphate 133 ml 04/15/25 16:58 Sodium Phos/Biphosphate Fleet 133ml Enema RC 04/15/25 16:59 ONCE ONE ORDERS Category Date Time Status CT abdomen pelvis wo con Stat Cat Scan 04/15/25 13:59 Completed Complete Blood Count Auto Diff AMLAB Lab 04/16/25 06:00 Ordered Complete Blood Count Auto Diff Stat Lab 04/15/25 14:29 Completed Comprehensive Metabolic Panel AMLAB Lab 04/16/25 06:00 Ordered Comprehensive Metabolic Panel Stat Lab 04/15/25 14:29 Completed Lipase Stat Lab 04/15/25 14:29 Completed Magnesium AMLAB Lab 04/16/25 06:00 Ordered Urinalysis and Microscopic Stat Lab 04/15/25 14:22 Completed Urine Culture Stat Micro 04/15/25 14:22 Received Medical Decision Narrative: In summary patient is a anxious 44-year-old female who presents to the emergency department for evaluation of abdominal pain and hematemesis. Patient is hemodynamically stable upon arrival, afebrile. Upon physical exam patient is tender in the left upper quadrant and left flank with complaints of additional pain in epigastric region. Differential diagnosis includes acute on chronic pancreatitis, renal calculus, viral gastritis. Initial workup will be conducted with labs and imaging. Initial interventions include IV fluids and medication for pain and nausea control. Initial workup reviewed by me hemoglobin 11.7 when previous hemoglobin was 14. Upon repeat evaluation patient states that pain and nausea have been moderately controlled with medication during ED course. Given the patient's recent history for anemia and need for transfusions, hematemesis, and severe abdominal pain today, plan of care is for patient to be admitted for further evaluation and treatment if indicated. Patient verbalized understanding of and is amenable to this plan of care. Full report of patient's ED course given to hospitalist physician Dr Strange for admission. EKG considered but not clinically indicated at this time due to the patient's complaint and presentation. Patient's medical history and chart was reviewed. However, patient's most recent history of admission in transfusion not able to be reviewed due to the patient's treatment out of state. Critical Care Critical Care Time Critical Care Time: No
--- NOTE | 2025-04-15 13:59 | CT_ITS ---
FINAL REPORT TECHNIQUE: Thin section axial images were obtained from the lung bases to the pubic symphysis without IV contrast. Coronal reconstruction images were obtained from the axial data. This study was performed with techniques to keep radiation doses as low as reasonably achievable, (ALARA). Individualized dose reduction techniques using automated exposure control or adjustment of mA and/or kV according to the patient's size were employed. CLINICAL HISTORY: L flank and abd pain w/ vomiting; hx pancreatitis COMPARISON: 05/15/2024 FINDINGS: There are no renal or ureteral stones. There is no hydronephrosis. The gallbladder is absent. The remaining unenhanced solid abdominal organs are without acute abnormality. 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 There is no evidence of small bowel obstruction. The visualized appendix is unremarkable. There is a large amount of stool in the proximal portions of the colon. The uterus is absent. There are small mesenteric lymph nodes which are nonspecific and can be seen with mesenteric adenitis. There is no pelvic lymphadenopathy. There is no free fluid. No acute osseous abnormality is identified. IMPRESSION: No renal or ureteral stones. No hydronephrosis. Constipation. Mildly prominent mesenteric lymph nodes can be seen with mesenteric adenitis. Reviewed, Interpreted and Dictated by Марина Leger MD Transcribed by Omaira Jacobson Authenticated and [facility]
[2025-04-15] MEDS: 0.9 % SODIUM CHLORIDE 1000ML 1,000 ML 999 ML IV (14:32)
[2025-04-15] MEDS: PANTOPRAZOLE SODIUM 80 MG in 0.9 % SODIUM CHLORIDE 100 ML 100 MG IV (14:32)
[2025-04-15] MEDS: ONDANSETRON 4MG/2ML VIAL 4 MG IV ×2 (14:33→18:14)
[2025-04-15] MEDS: HYDROMORPHONE 2MG/ML SYRINGE 0.5 MG IV ×2 (14:33→15:40)
[2025-04-15 14:35] LABS: Microscopic, Urine URINE MICROSCOPIC (MICROSCOPIC)
[2025-04-15 14:45] LABS: Bilirubin,Urine Negative (Negative); Color,Urine YELLOW (Yellow); Glucose,Urine (UA) Negative (Negative); Ketones,Urine Negative (Negative); Leukocyte Esterase,Urine TRACE (Negative); PH,Urine 7.0 (5.0-8.5); Protein,Urine Negative (Negative); Specific Gravity, Urine 1.010 (1.005-1.030); Urobilinogen,Urine 1.0 EU/dl (0.2)
[2025-04-15 15:00] LABS: Hematocrit 35.6 % (37.0-47.0); Hemoglobin 11.7 g/dL (12.2-16.2); Immature Granulocytes % 0 %; Mean Corpuscular HGB Conc 32.9 g/dL (31.8-35.4); Mean Corpuscular Hemoglobin 30.6 pg (27.0-31.2); Mean Corpuscular Volume 93.2 fl (81-99); Nucleated Red Blood Cells % 0 %; Platelet Count 186 K/mm3 (142-424); Red Blood Count 3.82 M/mm3 (4.20-5.40); Red Cell Distribution Width-SD 45.4 fL; White Blood Count 4.0 K/mm3 (4.8-10.8)
[2025-04-15 15:03] LABS: Amorphous Sediment,Urine 3+ /lpf
[2025-04-15 15:29] LABS: Albumin Level 4.3 g/dl (3.5-5.0); Chloride 110 mmol/L (98-107); Sodium 145 mmol/L (136-145)
[2025-04-15 15:30] LABS: Potassium 4.1 mmoL/L (3.5-5.1)
[2025-04-15 15:32] LABS: Alanine Aminotransferase 15 U/L (12-78); Albumin/Globulin Ratio 1.7 (1.1-1.8); Alkaline Phosphatase 71 U/L (38-126); Anion Gap 17.1 mEq/L (5-15); Aspartate Amino Transferase 20 U/L (14-36); Bilirubin,Total 0.6 mg/dl (0.2-1.3); Blood Urea Nitrogen 15 mg/dl (7-17); Carbon Dioxide 22 mmol/L (22.0-30.0); Creatinine Clearance Estimated 155 mL/min (50-200); Creatinine,Serum 0.60 mg/dl (0.52-1.04); Estimated Glomerular Filt Rate 108 ml/min (>60); GFR (African American) 130 ML/MIN (>60); Globulin 2.5 g/dL (1.3-3.2); Lipase 54 U/L (23-300); Total Protein,Serum 6.8 g/dl (6.3-8.2)
[2025-04-15 15:33] LABS: Calcium 9.0 mg/dl (8.4-10.2); Glucose 93 mg/dl (74-100)
[2025-04-15] MEDS: METOCLOPRAMIDE HCL 10MG/2ML VIAL 10 MG IVP (16:24)
--- NOTE | 2025-04-15 16:36 | ECG_ITS ---
APPROVED REPORT Exam: Resting ECG HR:90 bpm ECG Measurements Heart Rate 90 AXES OR 174 P 28 QRSd 84 QRS 53 QT 360 T 46 QTc 408 Conclusion SINUS RHYTHM POSSIBLE RIGHT VENTRICULAR CONDUCTION DELAY [RSR (QR) IN V1/V2] BORDERLINE ECG Electronically signed by : BRAEDEN BUCKLEY, 04/16/2025 14:00:53
[2025-04-15] MEDS: droPERidol 5MG/2ML VIAL 2.5 MG IV (16:56)
--- NOTE | 2025-04-15 17:01 | EXP.HP ---
History of Present Illness *Admission Date: 04/15/25 *Reason for visit:: nausea and vomiting *History of present illness: Ms. Barber is a 44-year-old female with history complicated by chronic pancreatitis, history of lap band placement, chronic pancreatic insufficiency, chronic opiate therapy, neuropathy, obesity. She presents today with concern for acute flareup of her chronic pancreatitis. She has been having intermittent nausea and vomiting. No diarrhea. Denies any fevers, shortness of breath, chest pain. Pain has been moderate in intensity in her upper abdomen. States she is having a hard time keeping liquids down. Reports an episode of hematemesis today as well and brought a picture with her of blood in the toilet. Reports multiple previous bouts of pancreatitis and her symptoms feel similar. Workup in the ER with CT of abdomen and labs showed normal lipase, unremarkable pancreas with no calcifications or peripancreatic stranding or cysts on CT of abdomen. Tenderness on exam and upper abdomen. CT also shows moderate stool burden consistent with constipation and presence of gastric band. On evaluation, having abdominal pain. Denies further hematemesis. Stable on room air. [facility] Disclaimer: The information contained in this section may have been updated after the patient was seen, as this information can be updated by other users. Social History Smoking Status: Never smoker alcohol intake: never substance use type: denies use current occupational status: other Travel in the last 8 weeks?: None household members: family housing: house Have you lived/traveled outside US in past 30 days?: No Contact w/someone who lives/traveled outside US past 30 days?: No Exposure to someone with infectious disease in past 14 days?: No Do you have a fever (greater than 100.4 F or 38 C)?: No Have you tested positive for COVID-19?: No Exposed to someone with COVID-19 in past 14 days?: No Do you have a sore throat?: No Do you have a cough?: No Do you have any weakness?: No Do you have any diarrhea?: No Are you experiencing any unusual bleeding?: Yes Do you have any muscle aches/pain?: No Do you have any abdominal pain?: No Are you experiencing loss of taste or smell?: No Other Medical History Have you received the Flu Vaccine for this season: No Have you received the Pneumonia Vaccine: No Review of Systems Review of Systems Review of systems (narrative): 14 point review of systems performed, pertinent positives and negatives as per HPI Meds Home Medications and Allergies Home Medications ?Medication ?Instructions ?Recorded ?Confirmed ?Type epinephrine 0.3 mg/0.3 mL 0.3 mg (0.3 mL) IM Q5-15M PRN 05/16/21 04/15/25 Rx injection, auto-injector (EpiPen anaphylaxis #2 ea 2-Luis) pantoprazole 40 mg tablet,delayed 40 mg PO DAILY #30 tabs 05/15/24 04/15/25 Rx release promethazine 25 mg tablet 25 mg PO Q6H PRN nausea and 05/15/24 04/15/25 Rx vomiting #12 tabs scopolamine base 1 mg over 3 days 1 patch transdermal 2XW 04/04/25 04/15/25 History transdermal patch tizanidine 4 mg tablet 4 mg PO Q6H PRN Pain (Scale Score 04/04/25 04/15/25 History 4-6) acetaminophen 300 mg-codeine 30 mg 1 tab PO QID 04/15/25 04/15/25 History tablet cyclobenzaprine 10 mg tablet 10 mg PO HS 04/15/25 04/15/25 History New Prescriptions to Start Prescriptions: Allergies Allergy/AdvReac Type Severity Reaction Status Date / Time Iodinated Contrast Media Allergy Severe Anaphylaxis Verified 04/04/25 11:27 (IODINATED CONTRAST MEDIA - IV DYE) codeine (CODEINE) Allergy Unknown SWELLING Verified 04/04/25 11:27 iodine (IODINE) Allergy Unknown Anaphylaxis Verified 04/04/25 11:27 loperamide (LOPERAMIDE) Allergy Unknown Rash Verified 04/04/25 11:27 shellfish derived (From Allergy Unknown SWELLING Verified 04/04/25 11:27 SHELLFISH (FOOD/DRUG)) ketorolac (From Toradol) Allergy Difficulty Verified 04/15/25 14:01 Breathing Exam Data for Last 24 hours Vital signs and Labs for Last 24 Hours: Temp Pulse Resp BP Pulse Ox O2 Del Method 98.3 F 103 H 16 124/85 99 Room Air 04/15/25 13:56 04/15/25 15:03 04/15/25 13:56 04/15/25 15:03 04/15/25 15:03 04/15/25 13:56 Laboratory Results - last 24 hr 04/15/25 14:22: Urine Color Yellow, Urine Appearance Clear, Urine pH 7.0, Ur Specific [place] 1.010, Urine Protein Negative, Urine Glucose (UA) Negative, Urine Ketones Negative, Urine Blood Negative, Urine Nitrate Negative, Urine Bilirubin Negative, Urine Urobilinogen 1.0, Ur Leukocyte Esterase Trace, Urine RBC None, Urine WBC 3-5, Ur Squamous Epith Cells 3-5, Amorphous Sediment 3+, Urine Bacteria None 04/15/25 14:29: WBC 4.0 L, RBC 3.82 L, Hgb 11.7 L, Hct 35.6 L, MCV 93.2, MCH 30.6, MCHC 32.9, RDW 13.2, Plt Count 186, MPV 10.1, Neut % (Auto) 64.3, Lymph % (Auto) 27.6, [place] % (Auto) 6.0, Eos % (Auto) 1.3, Baso % (Auto) 0.8, Neut # (Auto) 2.6, Lymph # (Auto) 1.1, [place] # (Auto) 0.2, Eos # (Auto) 0.1, Baso # (Auto) 0.0, Sodium 145, Potassium 4.1, Chloride 110 H, Carbon Dioxide 22, Anion Gap 17.1 H, BUN 15, Creatinine 0.60, Estimated Creat Clear 155, Estimated GFR 108, Est GFR ( Amer) 130, Glucose 93, Calcium 9.0, Total Bilirubin 0.6, AST 20, ALT 15, Alkaline Phosphatase 71, Total Protein 6.8, Albumin 4.3, Globulin 2.5, Albumin/Globulin Ratio 1.7, Lipase 54 I & O for Last 24 hours: Intake & Output 04/12/25 04/13/25 04/14/25 04/15/25 23:59 23:59 23:59 23:59 Intake Total 1100 / 1100 Balance 1100 / 1100 Weight 83.915 kg Constitutional Constitutional: mild distress, obese, chronically ill appearing and cooperative *Routine HEENT Exam Head: Present normocephalic Eye: Present EOMI and PERRL ENT: Present mucous membranes moist *Routine Neck Exam Neck: Present supple; Absent lymphadenopathy *Routine Respiratory Exam Respiratory: Present CTA bilaterally; Absent rhonchi or wheezes *Routine Cardiovascular Exam Cardiovascular: Present RRR *Routine Abdominal Exam Abdominal: Present soft, normoactive bowel sounds and tenderness (Epigastric); Absent distended, rebound or guarding *Routine Rectal Exam Rectal:: deferred *Routine Genitalia Exam Genitalia:: deferred *Routine Extremities Exam Extremities: Absent cyanosis, clubbing or edema *Routine Skin Exam Skin: Present warm; Absent rash *Routine Neurological Exam Neurological: Present alert, oriented X3 and moving all extremities; Absent altered mental status Assessment and Plan *Assessment and plan (1) Gastritis: Status: Acute Category: Medical Code(s): K29.70 - Gastritis, unspecified, without bleeding (2) Chronic abdominal pain: Status: Acute Category: Medical Code(s): R10.9 - Unspecified abdominal pain; G89.29 - Other chronic pain (3) Chronic pancreatitis: Status: Acute Category: Medical Code(s): K86.1 - Other chronic pancreatitis (4) Obesity (BMI 30.0-34.9): Status: Acute Category: Medical Code(s): E66.811 - Obesity, class 1 (5) Chronic, continuous use of opioids: Status: Acute Category: Medical Code(s): F11.90 - Opioid use, unspecified, uncomplicated Plan Ms. Barber 44-year-old female with complex GI past history. Presented with nausea and vomiting and little over 24 hours of abdominal pain. Reports episode of hematemesis at home. Workup in the ER with drop in hemoglobin of 3 points since last time she was at her facility. Lipase normal at 54. CT of abdomen showing constipation. In light of her pain, hematemesis, and hemoglobin change per labs, discussed case with ER and they request admission for monitoring overnight for further bleeding and management of her abdominal pain and constipation. I decided to admit for further care. Loaded with 80 mg IV pantoprazole in the ER. Has history of gastric sleeve, reports having had a scope within the past 6 months that did show some gastritis/irritation. Especially taking pantoprazole at home. Will initiate sucralfate as well. Serial H&H. Consider GI or surgical consult if continues to have drop in H&H for possible EGD. Problems addressed as follows: Nausea and vomiting Hematemesis -Patient brought picture of her hematemesis from home. Small amount of blood in the toilet. Denies melena. - Hemoglobin 11.7, review of chart shows 3 point drop from labs in May, hemoglobin on 05/21/2024 was 14.1 - BUN 15, creatinine 0.6. Reassuring she is not having significant upper GI bleed. -Repeat CBC, CMP, magnesium ordered for the morning - Pantoprazole 80 mg IV once in the ER. Continue 40 mg IV twice daily. Initiate on sucralfate 4 times a day - History of gastric sleeve, reports history of gastritis on recent scope. Will medically manage at this time. - If remains stable, recommend she follow-up with her specialist in [place] for further evaluation and management. - Expressing interest in eating, will advance diet as tolerated. - Previously seen in April of last year with similar presentation. Responded well to GI cocktail. Will consider if has recurrent emesis or esophageal pain/GERD Constipation - Per my review of CT of abdomen pelvis, patient has moderate stool burden. Reports bowel movements every 2 to 3 days. - Initiate on MiraLAX every 6 hours scheduled. Would like to defer on enema as she had a bowel movement this morning. - If no bowel movement by morning, will administer enema tomorrow. - Docusate/senna twice daily - Concern for constipation as underlying some of her nausea and abdominal pain Chronic pancreatitis: Follows with specialist in [place]. Lipase normal at 54. Liver enzymes normal. Repeat CBC, CMP, magnesium ordered for the morning. - Pain control with Toradol 30 mg every 6 hours as needed along with Dilaudid 1 mg every 4 hours as needed for severe breakthrough pain. Monitor for toxicity - Continue home Flexeril 10 mg nightly - Zofran and Phenergan for nausea. Obesity complicates all aspects of her care Patient's fill history shows amlodipine 5 mg twice daily and losartan 100 mg daily last filled in February. Monitor blood pressure and consider initiation if hypertensive Full code Regular diet Holding anticoagulation in the setting of suspected hematemesis; SCDs
--- NOTE | 2025-04-15 17:05 | PC.NURSE ---
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
--- NOTE | 2025-04-15 17:18 | PC.NURSE ---
report called to [facility], report given to Jose Rafael RODRIGES at [phone]
--- NOTE | 2025-04-15 17:35 | PC.NURSE ---
arrived by stretcher from ED
[2025-04-15] MEDS: HYDROMORPHONE 2MG/ML SYRINGE 1 MG IV ×2 (18:13→22:51)
[2025-04-15] MEDS: SENNOSIDES 8.6MG/DOCUSATE 50MG TABLET 1 TAB PO (20:32)
[2025-04-15] MEDS: PANTOPRAZOLE 40MG VIAL 40 MG IV (20:32)
[2025-04-15] MEDS: SUCRALFATE 1GM/10ML SUSP UDC 1 GM PO (20:32)
[2025-04-15] MEDS: POLYETHYLENE GLYCOL 3350 17 GM PACKET PO (20:32)
[2025-04-15] MEDS: CYCLOBENZAPRINE 10MG TABLET 10 MG PO (20:32)
[2025-04-15] MEDS: PROMETHAZINE 25MG TABLET 25 MG PO (22:50)
[2025-04-16] VITALS: BP 116/91; PULSE 92; PULSE 95; RESP 16; TEMP 36.8; O2SAT 97
[2025-04-16] MEDS: BELLADONNA ALKALOIDS 60 ML ML PO (03:31)
[2025-04-16 04:00] VITALS: BP 122/81; PULSE 80; PULSE 85; RESP 16; TEMP 36.6; O2SAT 96; BMI 25.9
[2025-04-16] MEDS: HYDROMORPHONE 2MG/ML SYRINGE 1 MG IV ×2 (04:59→09:05)
[2025-04-16] MEDS: SUCRALFATE 1GM/10ML SUSP UDC 1 GM PO ×2 (06:44→10:25)
--- NOTE | 2025-04-16 06:50 | PC.NURSE ---
Pt was admitted 04/15/2025 she is breathing unlabored and even on RA. Pt received miralax and sneakot bowl regime. Pt did not have a BM on my shift. Pt is Alert and oriented X4. Pt has not Vomited over night. Call light is within reach and Bed wheels are locked. CHARLEY AVILES RN
[2025-04-16 07:35] LABS: Hematocrit 34.3 % (37.0-47.0); Hemoglobin 11.2 g/dL (12.2-16.2); Immature Granulocytes % 0.3 %; Mean Corpuscular HGB Conc 32.7 g/dL (31.8-35.4); Mean Corpuscular Hemoglobin 30.6 pg (27.0-31.2); Mean Corpuscular Volume 93.7 fl (81-99); Nucleated Red Blood Cells % 0 %; Platelet Count 178 K/mm3 (142-424); Red Blood Count 3.66 M/mm3 (4.20-5.40); Red Cell Distribution Width-SD 45.9 fL; White Blood Count 2.9 K/mm3 (4.8-10.8)
[2025-04-16] MEDS: POLYETHYLENE GLYCOL 3350 17 GM PACKET PO (07:57)
[2025-04-16] MEDS: PANTOPRAZOLE 40MG VIAL 40 MG IV (07:57)
[2025-04-16] MEDS: SENNOSIDES 8.6MG/DOCUSATE 50MG TABLET 1 TAB PO (07:57)
[2025-04-16] MEDS: ONDANSETRON 4MG/2ML VIAL 4 MG IV (07:58)
[2025-04-16 08:00] VITALS: BP 125/92; PULSE 90; RESP 20; TEMP 36.8; O2SAT 100
[2025-04-16 08:29] LABS: Alanine Aminotransferase 13 U/L (12-78); Albumin Level 4.2 g/dl (3.5-5.0); Albumin/Globulin Ratio 1.8 (1.1-1.8); Alkaline Phosphatase 74 U/L (38-126); Anion Gap 8.3 mEq/L (5-15); Aspartate Amino Transferase 19 U/L (14-36); Bilirubin,Total 0.5 mg/dl (0.2-1.3); Blood Urea Nitrogen 15 mg/dl (7-17); Calcium 9.0 mg/dl (8.4-10.2); Carbon Dioxide 24 mmol/L (22.0-30.0); Chloride 109 mmol/L (98-107); Creatinine Clearance Estimated 131 mL/min (50-200); Creatinine,Serum 0.60 mg/dl (0.52-1.04); Estimated Glomerular Filt Rate 108 ml/min (>60); GFR (African American) 130 ML/MIN (>60); Globulin 2.3 g/dL (1.3-3.2); Glucose 80 mg/dl (74-100); Magnesium 2.1 mg/dl (1.6-2.3); Potassium 4.3 mmoL/L (3.5-5.1); Sodium 137 mmol/L (136-145); Total Protein,Serum 6.5 g/dl (6.3-8.2)
--- NOTE | 2025-04-16 11:45 | EXP.DC.SUM ---
General Admission date:: 04/15/25 Discharge date: 04/16/25 HPI HPI HPI: Ms. Barber is a 44-year-old female with history complicated by chronic pancreatitis, history of lap band placement, chronic pancreatic insufficiency, chronic opiate therapy, neuropathy, obesity. She presents today with concern for acute flareup of her chronic pancreatitis. She has been having intermittent nausea and vomiting. No diarrhea. Denies any fevers, shortness of breath, chest pain. Pain has been moderate in intensity in her upper abdomen. States she is having a hard time keeping liquids down. Reports an episode of hematemesis today as well and brought a picture with her of blood in the toilet. Reports multiple previous bouts of pancreatitis and her symptoms feel similar. Workup in the ER with CT of abdomen and labs showed normal lipase, unremarkable pancreas with no calcifications or peripancreatic stranding or cysts on CT of abdomen. Tenderness on exam and upper abdomen. CT also shows moderate stool burden consistent with constipation and presence of gastric band. On evaluation, having abdominal pain. Denies further hematemesis. Stable on room air. Hospital Course Hospital Course Hospital Course: Ms. Barber 44-year-old female with complex GI past history. Presented with nausea and vomiting and little over 24 hours of abdominal pain. Reports episode of hematemesis at home. Workup in the ER with drop in hemoglobin of 3 points since last time she was at her facility. Lipase normal at 54. CT of abdomen showing constipation. In light of her pain, hematemesis, and hemoglobin change per labs, discussed case with ER and they request admission for monitoring overnight for further bleeding and management of her abdominal pain and constipation. I decided to admit for further care. Loaded with 80 mg IV pantoprazole in the ER. Has history of gastric sleeve, reports having had a scope within the past 6 months that did show some gastritis/irritation. Especially taking pantoprazole at home. Initiated sucralfate. Patient did well overnight. No further emesis or hematemesis. Having bowel movements. Abdominal pain somewhat better. Tolerating pain regimen with good control. Serial H&H stable. Will discharge home with follow-up with her primary care. Strongly encouraged her to communicate with her primary care about having her medications relocated to [place] as she will be here for a while per her report. Problems addressed as follows: Nausea and vomiting Hematemesis/gastritis -Patient brought picture of her hematemesis from home. Small amount of blood in the toilet. Denies melena. Hemoglobin 11.7, review of chart shows 3 point drop from labs in May, hemoglobin on 05/21/2024 was 14.1. BUN 15, creatinine 0.6. Reassuring she is not having significant upper GI bleed. Repeat hemoglobin stable in the morning with no significant drop. Having bowel movements that are formed. No melena. No further hematemesis. Tolerating pantoprazole IV and sucralfate. Has pantoprazole at home. Will add sucralfate at discharge 4 times a day. As she is tolerating oral intake, will discharge home with plan to follow-up with her specialists as needed at her discretion. Continue medical management of gastritis. Constipation - Per my review of CT of abdomen pelvis, patient has moderate stool burden. Reports bowel movements every 2 to 3 days. Initiated on aggressive regimen with MiraLAX and docusate senna. Having bowel movements by discharge. Encouraged her to continue MiraLAX at discharge for goal of 1-2 soft stools a day. Suspect constipation exacerbates her abdominal pain and nausea. Chronic pancreatitis: Follows with specialist in [place]. Lipase normal at 54. Liver enzymes normal. Repeat labs in the morning remained stable with liver enzymes. Pain did well with Toradol and opiates. Normally takes Tylenol 3 4 times a day at home. Continue her muscle relaxers. States she needs a refill of her pain meds and is having a hard time getting them filled from [place]. Prescribed short course of hydrocodone to get her through the weekend so she can communicate with her primary physicians from [place] on Sunday. Otherwise doing well. Blood pressure stable. Continue home regimen Total time spent on discharge 32 minutes in counseling, documentation, chart review, and direct care with patient. Exam Data for Last 24 hours Vital signs and Labs for Last 24 Hours: Temp Pulse Resp BP Pulse Ox O2 Del Method 98.3 F 90 20 125/92 H 100 Room Air 04/16/25 08:00 04/16/25 08:00 04/16/25 08:00 04/16/25 08:00 04/16/25 08:00 04/16/25 10:16 Laboratory Results - last 24 hr 04/15/25 14:22: Urine Color Yellow, Urine Appearance Clear, Urine pH 7.0, Ur Specific [place] 1.010, Urine Protein Negative, Urine Glucose (UA) Negative, Urine Ketones Negative, Urine Blood Negative, Urine Nitrate Negative, Urine Bilirubin Negative, Urine Urobilinogen 1.0, Ur Leukocyte Esterase Trace, Urine RBC None, Urine WBC 3-5, Ur Squamous Epith Cells 3-5, Amorphous Sediment 3+, Urine Bacteria None 04/15/25 14:29: WBC 4.0 L, RBC 3.82 L, Hgb 11.7 L, Hct 35.6 L, MCV 93.2, MCH 30.6, MCHC 32.9, RDW 13.2, Plt Count 186, MPV 10.1, Neut % (Auto) 64.3, Lymph % (Auto) 27.6, [place] % (Auto) 6.0, Eos % (Auto) 1.3, Baso % (Auto) 0.8, Neut # (Auto) 2.6, Lymph # (Auto) 1.1, [place] # (Auto) 0.2, Eos # (Auto) 0.1, Baso # (Auto) 0.0, Sodium 145, Potassium 4.1, Chloride 110 H, Carbon Dioxide 22, Anion Gap 17.1 H, BUN 15, Creatinine 0.60, Estimated Creat Clear 155, Estimated GFR 108, Est GFR ( Amer) 130, Glucose 93, Calcium 9.0, Total Bilirubin 0.6, AST 20, ALT 15, Alkaline Phosphatase 71, Total Protein 6.8, Albumin 4.3, Globulin 2.5, Albumin/Globulin Ratio 1.7, Lipase 54 04/16/25 06:41: WBC 2.9 L D, RBC 3.66 L, Hgb 11.2 L, Hct 34.3 L, MCV 93.7, MCH 30.6, MCHC 32.7, RDW 13.3, Plt Count 178, MPV 10.0, Neut % (Auto) 42.7, Lymph % (Auto) 47.2, [place] % (Auto) 7.7, Eos % (Auto) 1.4, Baso % (Auto) 0.7, Neut # (Auto) 1.2 L, Lymph # (Auto) 1.4, [place] # (Auto) 0.2, Eos # (Auto) 0.0, Baso # (Auto) 0.0, Sodium 137, Potassium 4.3, Chloride 109 H, Carbon Dioxide 24, Anion Gap 8.3, BUN 15, Creatinine 0.60, Estimated Creat Clear 131, Estimated GFR 108, Est GFR ( Amer) 130, Glucose 80, Calcium 9.0, Magnesium 2.1, Total Bilirubin 0.5, AST 19, ALT 13, Alkaline Phosphatase 74, Total Protein 6.5, Albumin 4.2, Globulin 2.3, Albumin/Globulin Ratio 1.8 I & O for Last 24 hours: Intake & Output 04/13/25 04/14/25 04/15/25 04/16/25 23:59 23:59 23:59 23:59 Intake Total 1100 / 1220 480 / 480 Output Total 0 / 0 Balance 1100 / 1220 480 / 480 Weight 87.861 kg 70.579 kg Constitutional Constitutional: no acute distress, obese and cooperative *Routine HEENT Exam Head: Present normocephalic Eye: Present EOMI and PERRL ENT: Present mucous membranes moist *Routine Neck Exam Neck: Present supple; Absent lymphadenopathy *Routine Respiratory Exam Respiratory: Present CTA bilaterally; Absent rhonchi, wheezes or crackles *Routine Cardiovascular Exam Cardiovascular: Present RRR *Routine Abdominal Exam Abdominal: Present soft, normoactive bowel sounds and tenderness (mild epigastric and left upper quadrant); Absent distended or rebound *Routine Rectal Exam Patient deferred: visual exam *Routine Exam Patient deferred: external exam *Routine Extremities Exam Extremities: Absent cyanosis, clubbing or edema *Routine Skin Exam Skin: Present warm; Absent rash *Routine Neurological Exam Neurological: Present alert, oriented X3 and moving all extremities; Absent altered mental status Routine Psychiatric Exam Psychiatric: Present anxious Results Data Completed and Pending Labs on day of discharge: Labs from last 24 hours 04/16/25 04/15/25 04/15/25 06:41 14:29 14:22 WBC 2.9 L D 4.0 L RBC 3.66 L 3.82 L Hgb 11.2 L 11.7 L Hct 34.3 L 35.6 L MCV 93.7 93.2 MCH 30.6 30.6 MCHC 32.7 32.9 RDW 13.3 13.2 Plt Count 178 186 MPV 10.0 10.1 Neut % (Auto) 42.7 64.3 Lymph % (Auto) 47.2 27.6 [place] % (Auto) 7.7 6.0 Eos % (Auto) 1.4 1.3 Baso % (Auto) 0.7 0.8 Neut # (Auto) 1.2 L 2.6 Lymph # (Auto) 1.4 1.1 [place] # (Auto) 0.2 0.2 Eos # (Auto) 0.0 0.1 Baso # (Auto) 0.0 0.0 Sodium 137 145 Potassium 4.3 4.1 Chloride 109 H 110 H Carbon Dioxide 24 22 Anion Gap 8.3 17.1 H BUN 15 15 Creatinine 0.60 0.60 Estimated Creat Clear 131 155 Estimated GFR 108 108 Est GFR ( Amer) 130 130 Glucose 80 93 Calcium 9.0 9.0 Magnesium 2.1 Total Bilirubin 0.5 0.6 AST 19 20 ALT 13 15 Alkaline Phosphatase 74 71 Total Protein 6.5 6.8 Albumin 4.2 4.3 Globulin 2.3 2.5 Albumin/Globulin Ratio 1.8 1.7 Lipase 54 Urine Color Yellow Urine Appearance Clear Urine pH 7.0 Ur Specific [place] 1.010 Urine Protein Negative Urine Glucose (UA) Negative Urine Ketones Negative Urine Blood Negative Urine Nitrate Negative Urine Bilirubin Negative Urine Urobilinogen 1.0 Ur Leukocyte Esterase Trace Urine RBC None Urine WBC 3-5 Ur Squamous Epith Cells 3-5 Amorphous Sediment 3+ Urine Bacteria None DS: Diagnosis Discharge Diagnosis (1) Gastritis: Status: Acute Code(s): K29.70 - Gastritis, unspecified, without bleeding (2) Chronic abdominal pain: Status: Acute Code(s): R10.9 - Unspecified abdominal pain; G89.29 - Other chronic pain (3) Chronic pancreatitis: Status: Acute Code(s): K86.1 - Other chronic pancreatitis (4) Obesity (BMI 30.0-34.9): Status: Acute Code(s): E66.811 - Obesity, class 1 (5) Chronic, continuous use of opioids: Status: Acute Code(s): F11.90 - Opioid use, unspecified, uncomplicated Meds Home Medications and Allergies Home Medications ?Medication ?Instructions ?Recorded ?Confirmed ?Type epinephrine 0.3 mg/0.3 mL 0.3 mg (0.3 mL) IM Q5-15M PRN 05/16/21 04/15/25 Rx injection, auto-injector (EpiPen anaphylaxis #2 ea 2-Luis) pantoprazole 40 mg tablet,delayed 40 mg PO DAILY #30 tabs 05/15/24 04/15/25 Rx release promethazine 25 mg tablet 25 mg PO Q6H PRN nausea and 05/15/24 04/15/25 Rx vomiting #12 tabs scopolamine base 1 mg over 3 days 1 patch transdermal 2XW 04/04/25 04/15/25 History transdermal patch tizanidine 4 mg tablet 4 mg PO Q6H PRN Pain (Scale Score 04/04/25 04/15/25 History 4-6) acetaminophen 300 mg-codeine 30 mg 1 tab PO QID 04/15/25 04/15/25 History tablet amlodipine 5 mg tablet 5 mg PO BID 04/15/25 04/15/25 History cyclobenzaprine 10 mg tablet 10 mg PO HS 04/15/25 04/15/25 History losartan 100 mg tablet 100 mg PO DAILY 04/15/25 04/15/25 History pregabalin 200 mg capsule 200 mg PO BID 04/15/25 04/15/25 History hydrocodone 5 mg-acetaminophen 325 1 tab PO Q4H PRN pain 3 days #15 04/16/25 Rx mg tablet tabs sucralfate 1 gram tablet 1 g PO ACHS 30 days #120 tabs 04/16/25 Rx New Prescriptions to Start Prescriptions: hydrocodone-acetaminophen Luiz Strange sucralfate Luiz Strange Allergies Allergy/AdvReac Type Severity Reaction Status Date / Time Iodinated Contrast Media Allergy Severe Anaphylaxis Verified 04/04/25 11:27 (IODINATED CONTRAST MEDIA - IV DYE) codeine (CODEINE) Allergy Unknown SWELLING Verified 04/04/25 11:27 iodine (IODINE) Allergy Unknown Anaphylaxis Verified 04/04/25 11:27 loperamide (LOPERAMIDE) Allergy Unknown Rash Verified 04/04/25 11:27 shellfish derived (From Allergy Unknown SWELLING Verified 04/04/25 11:27 SHELLFISH (FOOD/DRUG)) ketorolac (From Toradol) Allergy Difficulty Verified 04/15/25 14:01 Breathing Discharge Plan Disposition Patient Disposition: Home, Self-Care Condition: Fair Follow up Plan Follow up with: Provider,Referral, MD [Primary Care Provider, Medical] - Enter time for follow up Prescriptions/Medication Reconciliation: New sucralfate 1 gram tablet 1 g PO ACHS 30 Days Qty: 120 0RF hydrocodone-acetaminophen 5-325 mg tablet 1 tab PO Q4H PRN (Reason: pain) 3 Days Qty: 15 0RF Continued epinephrine [EpiPen 2-Luis] 0.3 mg/0.3 mL auto-injector 0.3 mg IM Q5-15M PRN (Reason: anaphylaxis) Qty: 2 0RF Rx Instructions: do not exceed 3 doses per episode tizanidine 4 mg tablet 4 mg PO Q6H PRN (Reason: Pain (Scale Score 4-6)) scopolamine base 1 mg over 3 days patch 3 day 1 patch transdermal 2XW cyclobenzaprine 10 mg tablet 10 mg PO HS acetaminophen-codeine 300-30 mg tablet 1 tab PO QID amlodipine 5 mg tablet 5 mg PO BID losartan 100 mg tablet 100 mg PO DAILY pregabalin 200 mg capsule 200 mg PO BID pantoprazole 40 mg tablet,delayed release (DR/EC) 40 mg PO DAILY Qty: 30 0RF promethazine 25 mg tablet 25 mg PO Q6H PRN (Reason: nausea and vomiting) Qty: 12 0RF Problem Reconciliation Problems Reviewed?: Yes Patient Discharge Instructions ACTIVITY: Continue current activity DIET: continue same diet Patient Instructions: Acute Abdominal Pain, DI for Pancreatitis, DI for Abdominal Pain in Adults Print Language: Azeri Providers Primary Care Provider: Provider,Referral Admit Provider: Luiz Strange Attending Provider: Luiz Strange
[2025-04-16 12:00] VITALS: BP 141/74; PULSE 102; RESP 16; TEMP 37.5; O2SAT 97
--- NOTE | 2025-04-20 10:37 | SW/DCPLANNER ---
Spoke with patient on the phone. Patient stated that she is feeling the same. Patient stated that she will make an appointment with her PCP when she goes back home to [place]. 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 Patient stated that she has no concerns or questions at this time. Arian Garcia
== END 2025-04-16 12:55 | disposition home or self-care (01) ==
LOC: ER 17:00 → 2ND 17:12
PROVIDERS: Physician Assistant; Admitting Provider Internal Medicine Adolescent Medicine; Emergency Provider Student in an Organized Health Care Education/Training Program; Visit Provider Internal Medicine Adolescent Medicine
DX: K29.70 Gastritis, unspecified, without bleeding (principal); K86.1 Other chronic pancreatitis; E66.811 Obesity, class 1; Z68.34 Body mass index [BMI] 34.0-34.9, adult; F11.90 Opioid use, unspecified, uncomplicated; Z79.899 Other long term (current) drug therapy; Z91.041 Radiographic dye allergy status; Z88.5 Allergy status to narcotic agent; Z88.6 Allergy status to analgesic agent; Z91.013 Allergy to seafood; I88.0 Nonspecific mesenteric lymphadenitis; R94.31 Abnormal electrocardiogram [ECG] [EKG]
CPT/HCPCS: 36415; 74176; 80053; 81001; 83690; 83735; 85025; 87086; 93005; 96365; 96375; 96376; 99285; G0378; J1171; J1790; J2405; J2470; J2765; J7030

== ENCOUNTER 2025-04-21 18:34 | Observation (INO) | payer OTHER, SELFPAY ==
[2025-04-21] VITALS (11 sets, daily range): BP systolic 129–147; BP diastolic 74–108; PULSE 78–124; RESP 13–22; TEMP 36.8–37; O2SAT 95–100; BMI 32.1
--- NOTE | 2025-04-21 18:51 | XR_ITS ---
PROCEDURE INFORMATION: Exam: XR Chest Exam date and time: 04/21/2025 8:47 PM Age: 44 years old Clinical indication: Shortness of breath; Additional info: Short of breath TECHNIQUE: Imaging protocol: Radiologic exam of the chest. Views: 1 view. Total images: 1 COMPARISON: CR XR CHEST PORTABLE 07/08/2020 1:49 PM FINDINGS: Lungs: Unremarkable. No consolidation. No pulmonary vascular congestion or edema. Pleural spaces: Unremarkable. No pleural effusion. No pneumothorax. Heart/Mediastinum: Unremarkable. No cardiomegaly. No mediastinal widening or hilar enlargement. Bones/joints: Unremarkable. IMPRESSION: No radiographically acute cardiopulmonary process.
--- OUTSIDE RECORDS SUMMARY | 2025-04-21 18:52 | XMS_ITS | Continuity of Care Document ---
Author Organization [place] - Dr. Tomi Quezada, [facility] Address [address] [facility] Andrey GALINDO [facility] [address] [place] [address] Care Team Providers Care Physician/Internist Name Role Phone [facility] Pain Management Assessment No assessment recorded. Plan of Treatment Reminders Order Date Submit Date Provider Last Modified By Organization Details Last Modified Time Details Appointments None recorded. Lab None recorded. Referral None recorded. Procedures None recorded. Surgeries None recorded. Imaging None recorded. Medication Orders amoxicillin 875 mg-potassiu m clavulanate 125 mg tablet 2024 025 [facility]/Pharmacy #[id number], [address] [place], [address], 5 05:01:17 azelastine 137 mcg (0.1 %) nasal spray 2024 025 [facility]/Pharmacy #[id number], [address] [place], [address], 5 15:36:28 Patient TargetsNo targets recorded. Patient InstructionsNo instructions recorded. Reason for Referral None Reported. Problems Name Problem SNOMED Code Status Onset Date Resolution Date Notes Provider Name and Address Organization Details Recorded Time Acute pancreatitis [id number] DAVID Funez Dr. 5 16:24:31 Restless legs syndrome [id number] DAVID Funez Dr. 16:24:[id number] 16:24:31 Simple obesity 078424392 Active [place], [place] - Dr. Tomi Quezada 5 16:24:31 Chronic pancreatitis 339089129 Active 2022 JESUS PIMENTEL NP [address], [place], [address], [place] - Dr. Tomi Quezada 5 15:56:21 Mixed hyperlipidemia 183547425 Active 2022 [place], [place] - Dr. Tomi Quezada 3 16:50:12 Vitamin B12 deficiency (non anemic) 11661422 Active 2022 [place], [place] - Dr. Tomi Quezada 3 16:50:13 Conjunctivitis 1170182 Active 2022 Alexx Garcia MD [address], [place], [address], [place] - Dr. Tomi Quezada 13:12:09 Chronic nonspecific abdominal pain 669353675 Active 2022 JESUS IPMENTEL NP [address], [place], [address], [place] - Dr. Tomi Quezada 5 16:51:48 Opioid dependence 24642050 Active 2022 Tomi Quezada MD [address], [place], [address], [place] - Dr. Tomi Quezada 3 21:55:27 Benzodiazepine dependence 138942114 Active 2022 Tomi Quezada MD [address], [place], [address], [place] - Dr. Tomi Quezada 3 21:55:46 Low back pain 669267126 Active 2023 JESUS PIMENTEL NP [address], [place], [address], [place] - Dr. Tomi Quezada 5 15:56:21 Tachycardia 0634228 Active 2023 Maritza Mcpherson NP [address], [place], [address], [place] - Dr. Tomi Quezada 4 17:47:04 Seizure disorder 165385402 Active 2023 Maritza Mcpherson NP [address], [place], [address], [place] - Dr. Tomi Quezada 4 11:16:55 Headache 69810874 Active 2023 Maritza Mcpherson [employer] [address], [place], [address], [place] - Dr. Tomi Quezada 4 11:17:33 Essential hypertension 65231444 Active 2023 JESUS PIMENTEL [employer] [address], [place], [address], [place] - Dr. Tomi Quezada 16:50:08 Tooth infection 657926080 Active 2024 JESUS PIMENTEL NP [address], [place], [address], [place] - Dr. Tomi Quezada 15:56:21 Nausea and vomiting, unspecified vomiting type 05421719 Active 2024 JESUS PIMENTEL [employer] [address], [place], [address], [place] - Dr. Tomi Quezada 16:41:02 Motion sickness 66608888 Active 2024 JESUS PIMENTEL NP [address], [place], [address], [place] - Dr. Tomi Quezada 17:26:23 Problem Notes None recorded. Procedures Surgical History Date Name Laterality Status Provider Name and Address Organization Details Recorded Time 025 Hospital follow up completed TALITA Quezada 11/26/2024 16:30:48 025 Date of Last Colonoscopy completed RUBIA Quezada 01/27/2025 14:30:32 025 Hospital follow up completed Lor Quezada 09/15/2024 14:59:32 025 Hospital follow up completed Lor Quezada 08/28/2024 17:11:04 025 Hospital follow up completed [place] HERNANDEZ - Dr. Tomi Quezada 06/25/2024 16:23:44 025 Hospital follow up completed Lor HERNANDEZ - Dr. Tomi Quezada 06/04/2024 14:31:02 024 Hospital follow up completed RAYNA HERNANDEZ - Dr. Tomi Quezada 01/24/2024 14:09:45 024 Date of Last Mammogram completed Lor HERNANDEZ - Dr. Tomi Quezada 09/15/2024 15:01:03 024 Most Recent Mammogram completed PARAS HERNANDEZ - Dr. Tomi Quezada 03/21/2024 16:45:16 024 Hospital follow up completed RAYNA HERNANDEZ - Dr. Tomi Quezada 11/07/2023 14:38:25 023 Hospital follow up completed Lor HERNANDEZ - Dr. Tomi Quezada 02/26/2023 14:59:24 023 removal of spinal neurostimulator completed KEYLA HERNANDEZ - Dr. Tomi Quezada 09/26/2022 14:48:26 016 Date of Last Pap Smear completed KEYLA Quezada 09/26/2022 14:45:18 016 Total Hysterectomy completed KEYLA Quezada 09/26/2022 14:47:29 Appendectomy completed KEYLA Quezada 09/26/2022 14:47:36 Cholecystectomy completed KEYLA Quezada 09/26/2022 14:47:46 tonsillectomy completed KEYLA Quezada 09/26/2022 14:47:53 Knee Surgery completed KEYLA Quezada 09/26/2022 14:48:50 Imaging Results None recorded. Procedure Notes None recorded. Medical Equipment None Reported. Allergies Allergen ID Allergen Name Allergen Category Reaction Reaction Severity Criticality Documentation Date Start Date Code Code System Note Provider Name and Address Organization Details Recorded Time 14172 iodine medicatio n Not available Not available Not available 04/02/2025 5933 RxNorm Not Available [facility] - External Data Service - prod 5 19:27:15 23932 prednison e medicatio n Not available Not available Not available 04/02/2025 8640 RxNorm Not Available [place] - External Data Service - prod 5 19:27:15 6339 shellfish derived food,medi cation Not available Not available Not available 09/26/2022 DAVID Joseph - Dr. Tomi Quezada 3 14:35:17 8619 loperamid e medicatio n Not available Not available Not available 06/25/2024 6468 RxNorm Other react ions and sever ities : 'Weal (diso rder) '. DAVID Martin Dr. 5 10:07:15 8899 ketorolac medicatio n Not available Not available Not available 08/20/2024 [address] 5 10:07:15 Medications Name Sig Start Date Stop Date Status Note LastModified by Organization Details LastModified Time Miralax 17 gram oral powder packet 17 g by oral route. 08/06 completed Not Available Not Available Not Available losartan 50 mg tablet TAKE 1 TABLET BY MOUTH EVERY DAY 03/28 completed NOT TAKING Not Available Not Available Not Available cyclobenz aprine 10 mg tablet TAKE 1 TABLET BY MOUTH EVERYDAY AT BEDTIME active Not Available Not Available No t Available amoxicill in 500 mg capsule TAKE 1 CAPSULE BY MOUTH THREE TIMES A DAY 03/05 completed COMPLETE D Not Available Not Available Not Available methocarb jona 500 mg tablet TAKE 1 TABLET BY MOUTH TWICE A DAY FOR 2 DAYS NEEDED FOR PAIN active Not Available Not Available No t Available clotrimaz ole 10 mg jad dissolve 10mg jad by mouth 5 times a day; slowly dissolve in mouth; do not chew or swallow 03/28 completed Not Available Not Available Not Available nystatin 100,000 unit/mL oral suspensio n Take 5 mL 4 times a day by oral route for 7 days. 2023 active Not Available Not Available Not Avai lable clonidine HCl 0.1 mg tablet Take 0.1 mg by oral route. 2024 active not taking Not Available Not Available Not Available venlafaxi ne ER 75 mg capsule,e xtended release 24 hr TAKE 1 CAPSULE BY MOUTH EVERY DAY IN THE MORNING 03/28 completed Not taking Not Available Not Available Not Available amiloride 5 mg-hydroc hlorothia zide 50 mg tablet Take 1 tablet by oral route. 2024 active not taking Not Available Not Available Not Available lidocaine 4 % topical patch 1 patch by topical route. 07/12 completed Not Available Not Available Not Available tizanidin e 2 mg tablet Take 1 tablet every 6 hours by oral route as needed for 30 days, for pain. 2024 active Not Available Not Available Not Avai lable trazodone 50 mg tablet TAKE 1 TABLET BY MOUTH EVERY DAY AT BEDTIME NEEDED 03/28 completed Not taking Not Available Not Available Not Available ibuprofen 800 mg tablet TAKE 1 TABLET BY MOUTH TWICE A DAY NEEDED FOR PAIN TAKE WITH FOOD 03/28 completed NOT TAKING Not Available Not Available Not Available Lidocaine Viscous 2 % mucosal solution SWISH AND SPIT OUT 15 ML BY MOUTH EVERY 3 HOURS FOR SORES IN MOUTH active Not Available Not Available No t Available tizanidin e 4 mg tablet TAKE 1 TABLET BY MOUTH EVERY 6 HOURS NEEDED FOR 30 DAYS 2024 active Not Available Not Available Not Avai lable metoprolo l succinate ER 50 mg tablet,ex tended release 24 hr Take 1 tablet every day by oral route for 90 days. active not taking Not Available Not Available Not Available valacyclo vir 1 gram tablet TAKE 1 TABLET BY MOUTH EVERY 8 HOURS FOR 7 DAYS 03/28 completed Not taking Not Available Not Available Not Available cephalexi n 250 mg capsule TAKE 1 CAPSULE BY MOUTH 4 TIMES A DAY FOR 7 DAYS 03/28 completed NOT TAKING Not Available Not Available Not Available hydrocodo ne 5 mg-acetam inophen 325 mg tablet Take 1 tablet every 6 hours by oral route as needed, for severe pain. active NOT TAKING Not Available Not Available Not Available promethaz ine 25 mg rectal supposito ry UNWRAP AND INSERT 1 SUPPOSIT ORY RECTALLY EVERY 4 HOURS NEEDED FOR NAUSEA OR VOMITING active Not Available Not Available No t Available prochlorp erazine maleate 5 mg tablet Take 1 tablet every 4 hours by oral route as needed for 5 days, for nausea. 12/08 completed Not Available Not Available Not Available sucralfat e 1 gram tablet TAKE 1 TABLET BY MOUTH FOUR TIMES A DAY active Not Available Not Available No t Available promethaz ine 12.5 mg tablet TAKE 1 TABLET BY MOUTH EVERY 4 HOURS NEEDED FOR NAUSEA AND VOMITING FOR 14 DAYS 08/20 completed Not Available Not Available Not Available famotidin e 40 mg tablet TAKE 1 TABLET BY MOUTH EVERY DAY 2024 active Not Available Not Available Not Avai lable prednison e 20 mg tablet TAKE 2 TABLETS BY MOUTH EVERY DAY 03/28 completed NOT TAKING Not Available Not Available Not Available clonazepa m 0.5 mg tablet TAKE 1 TABLET BY MOUTH TWICE A DAY NEEDED FOR PANIC 03/05 completed Not taking Not Available Not Available Not Available metoprolo l succinate ER 100 mg tablet,ex tended release 24 hr Take 1 tablet every day by oral route for 90 days. active not taking Not Available Not Available Not Available gabapenti n 400 mg capsule TAKE 1 CAPSULE BY MOUTH EVERY 8 HOURS 03/28 completed Not taking Not Available Not Available Not Available clonazepa m 1 mg tablet TAKE 1 TABLET BY MOUTH TWICE A DAY NEEDED 03/05 completed Not taking Not Available Not Available Not Available venlafaxi ne ER 150 mg capsule,e xtended release 24 hr TAKE 1 CAPSULE BY MOUTH EVERY DAY IN THE MORNING 03/28 completed Not taking Not Available Not Available Not Available Accu-Chek Softclix Lancets TO TEST GLYCEMIA ONCE DAILY. active Not Available Not Available No t Available diphenoxy late-atro pine 2.5 mg-0.025 mg tablet TAKE 2 TABLETS BY MOUTH EVERY 6-8 HOURS 03/28 completed Nont taking Not Available Not Available Not Available haloperid ol 1 mg tablet TAKE 1 TABLET BY MOUTH THREE TIMES DAILY NEEDED FOR ADBOMINA L PAIN 03/28 completed NOT TAKING Not Available Not Available Not Available hydroxyzi ne HCl 50 mg tablet TAKE ONE TABLET BY MOUTH TWICE A DAY AND TWO TABLETS AT BEDTIME 03/28 completed NOT TAKING Not Available Not Available Not Available acetamino phen 300 mg-codein e 30 mg tablet TAKE 1 TABLET BY MOUTH FOUR TIMES A DAY active Not Available Not Available No t Available amlodipin e 5 mg tablet TAKE 1 TABLET BY MOUTH TWICE A DAY FOR 90 DAYS active Not Available Not Available No t Available sulfameth oxazole 800 mg-trimet hoprim 160 mg tablet TAKE 1 TABLET BY MOUTH TWICE A DAY FOR 7 DAYS FINISH COMPLETE LY ,DRINK PLENTY OF FLUIDS active Not Available Not Available No t Available hydrocodo ne 10 mg-acetam inophen 325 mg tablet 1 TABLET EVERY MORNING & 1 TABLET EVERY EVENING active not taking Not Available Not Available Not Available tramadol 50 mg tablet Take 1 tablet every 12 hours by oral route as needed for 30 days. 2022 active NOT TAKING Not Available Not Available Not Available acyclovir 800 mg tablet TAKE 1 TABLET BY MOUTH 5 TIMES DAILY FOR 7 DAYS 03/05 completed Not taking Not Available Not Available Not Available ondansetr on 8 mg disintegr ating tablet TAKE 1 TABLET BY MOUTH EVERY 8 HOURS NEEDED FOR NAUSEA AND VOMITING FOR 5 DAYS active Not Available Not Available No t Available ketorolac 10 mg tablet TAKE 1 TABLET BY MOUTH EVERY 6 TO 8 HOURS NEEDED 03/28 completed Not taking Not Available Not Available Not Available risperido ne 2 mg tablet TAKE 1 TABLET BY MOUTH EVERYDAY AT BEDTIME 03/28 completed NOT TAKING Not Available Not Available Not Available alprazola m 0.5 mg tablet TAKE 1 TABLET ORALLY 10 MINUTES BEFORE PROCEDUR E 2 DAYS 03/05 completed Not taking Not Available Not Available Not Available famciclov ir 250 mg tablet TAKE 1 TABLET BY MOUTH TWICE DAILY 03/28 completed Not taking Not Available Not Available Not Available famotidin e 20 mg tablet TAKE 1 TABLET BY MOUTH TWICE A DAY 03/28 completed NOT TAKING Not Available Not Available Not Available amitripty line 25 mg tablet TAKE 2 TABLETS BY MOUTH AT BEDTIME 03/05 completed Not taking Not Available Not Available Not Available omeprazol e 10 mg capsule,d elayed release TAKE 1 CAPSULE BY MOUTH ONCE DAILY 03/28 completed Not taking Not Available Not Available Not Available dicyclomi ne 20 mg tablet TAKE 1 TABLET BY MOUTH FOUR TIMES A DAY NEEDED FOR ABDOMINA L PAIN FOR 7 DAYS active not taking Not Available Not Available Not Available amitripty line 10 mg tablet Take 10 mg by oral route. 2024 active not taking Not Available Not Available Not Available baclofen 10 mg tablet TAKE 1 TABLET BY MOUTH ONCE DAILT AT BEDTIME 03/28 completed NOT TAKING Not Available Not Available Not Available cephalexi n 500 mg capsule TAKE 1 CAPSULE BY MOUTH EVERY 6 HOURS FOR 7 DAYS 03/28 completed NOT TAKING Not Available Not Available Not Available pantopraz ole 40 mg tablet,de layed release TAKE 1 TABLET BY MOUTH EVERY DAY FOR 56 DAYS 2024 active Not Available Not Available Not Avai lable venlafaxi ne 37.5 mg tablet TAKE 1 TABLET BY MOUTH EVERY DAY IN THE MORNING 03/28 completed Not taking Not Available Not Available Not Available promethaz ine 25 mg tablet Take 1 tablet every 6 hours by oral route as needed for 30 days. 2024 active Not Available Not Available Not Avai lable polymyxin B sulfate 10,000 unit-trim ethoprim 1 mg/mL eye drops INSTILL 1 DROP INTO AFFECTED EYE EVERY 6 HOURS 03/28 completed Not Available Not Available Not Available oxycodone 5 mg capsule TAKE 1 CAPSULE BY MOUTH EVERY 6 HOURS FOR 3 DAYS NEEDED FOR PAIN active Not Available Not Available No t Available glucose 4 gram chewable tablet Take 1 tablet 3 times a day by oral route for 10 days, for low glucose <70. 12/13 completed Not Available Not Available Not Available hydrochlo rothiazid e 12.5 mg capsule Take 1 capsule every day by oral route for 90 days. active not taking Not Available Not Available Not Available fluoxetin e 10 mg capsule TAKE 1 CAPSULE BY MOUTH EVERY DAY IN THE MORNING 03/28 completed NOT TAKING Not Available Not Available Not Available docusate sodium 100 mg capsule TAKE 1 CAPSULE BY MOUTH TWICE A DAY 03/28 completed Not taking Not Available Not Available Not Available gabapenti n 300 mg capsule TAKE 1 CAPSULE BY MOUTH EVERY 6 HOURS 03/28 completed NOT TAKING Not Available Not Available Not Available Bentyl 10 mg capsule 10 mg by oral route. 08/06 completed Not Available Not Available Not Available hydroxyzi ne HCl 25 mg tablet TAKE 1 TABLET BY MOUTH EVERY DAY FOR 30 DAYS active not taking Not Available Not Available Not Available mupirocin 2 % topical ointment APPLY A SMALL AMOUNT TO AFFECTED AREA 3 TIMES A DAY 03/28 completed Not Available Not Available Not Available gabapenti n 100 mg capsule TAKE 1 CAPSULE BY MOUTH 3 TIMES A DAY FOR 10 DAYS 03/28 completed Not taking Not Available Not Available Not Available metoprolo l succinate ER 25 mg tablet,ex tended release 24 hr TAKE 1 TABLET BY MOUTH EVERY DAY 03/28 completed NOT TAKING Not Available Not Available Not Available lorazepam 1 mg tablet TAKE ONE (1) TABLET BY MOUTH THREE TIMES A DAY, NEEDED FOR SEVERE ANXIETY 03/28 completed NOT TAKING Not Available Not Available Not Available azelastin e 137 mcg (0.1 %) nasal spray SPRAY 2 SPRAYS BY INTRANAS AL ROUTE TWICE A DAY FOR 30 DAYS active Not Available Not Available No t Available epinephri ne 0.3 mg/0.3 mL injection , auto-inje ctor TAKE 1 AUTO EVERY DAY BY INJECTIO N ROUTE NEEDED FOR 30 DAYS, FOR ALLERGIC REACTION . active Not Available Not Available No t Available polyethyl scooter glycol 3350 17 gram/dose oral powder MIX 17GM IN WATER AND DRINK BY MOUTH TWICE A DAY FOR 14 DAYS active Not Available Not Available No t Available scopolami ne 1 mg over 3 days transderm al patch APPLY 1 PATCH TRANSDER DREW TWICE A WEEK 2024 active Not Available Not Available Not Avai lable morphine 15 mg immediate release tablet TAKE 1 TABLET BY MOUTH EVERY 8 HOURS NEEDED FOR PAIN 03/28 completed Not taking Not Available Not Available Not Available ondansetr on 4 mg disintegr ating tablet TAKE 1 TABLET BY MOUTH EVERY 6 HOURS NEEDED FOR NAUSEA AND VOMITING active Not Available Not Available No t Available losartan 100 mg tablet TAKE 1 TABLET BY MOUTH EVERY DAY FOR 90 DAYS active Not Available Not Available No t Available fluoxetin e 20 mg capsule TAKE 1 CAPSULE BY MOUTH EVERY DAY IN THE MORNING active NOT TAKING Not Available Not Available Not Available risperido ne 1 mg tablet TAKE 1 TABLET BY MOUTH EVERYDAY AT BEDTIME 03/28 completed Not taking Not Available Not Available Not Available metoclopr amide 10 mg tablet TAKE 1 TABLET BY MOUTH EVERY 6 TO 8 HOURS NEEDED FOR NAUSEA AND VOMITING active Not Available Not Available No t Available amoxicill in 875 mg-potass ium clavulana te 125 mg tablet Take 1 tablet every 12 hours by oral route for 7 days. 02/105 completed Not Available Not Available Not Available buspirone 15 mg tablet TAKE 1 TABLET BY MOUTH THREE TIMES A DAY 03/28 completed NOT TAKING Not Available Not Available Not Available oxycodone 5 mg tablet TAKE 1 TABLET EVERY 8 HOURS NEEDED FOR PAIN active not taking Not Available Not Available Not Available moxifloxa aziza 0.5 % eye drops INSTILL 1 DROP INTO AFFECTED EYE(S) BY OPHTHALM IC ROUTE 3 TIMES PER DAY 03/28 completed Not Available Not Available Not Available cholestyr amine (with sugar) 4 gram powder for susp in a packet TAKE 1 PACKET BY MOUTH 3 TIMES A DAY active Not Available Not Available No t Available mirtazapi ne 7.5 mg tablet TAKE ONE TABLET BY MOUTH AT BEDTIME FOR SLEEP 03/28 completed NOT TAKING Not Available Not Available Not Available nitrofura ntoin monohydra te/macroc rystals 100 mg capsule TAKE 1 CAPSULE BY MOUTH TWICE A DAY FOR 10 DAYS active Not Available Not Available No t Available duloxetin e 30 mg capsule,d elayed release TAKE 1 CAPSULE BY MOUTH EVERY MORNING FOR 1 WEEK, THEN INCREASE TO 2 CAPSULES PER DAY 03/28 completed Nont taking Not Available Not Available Not Available lactulose 10 gram/15 mL oral solution TAKE 30 ML BY MOUTH EVERY DAY AT BEDTIME NEEDED FOR CONSTIPA TION 03/28 completed NOT TAKING Not Available Not Available Not Available tizanidin e 6 mg capsule TAKE 1 CAPSULE BY MOUTH EVERY 6 HOURS NEEDED 07/05 completed Not Available Not Available Not Available pregabali n 50 mg capsule TAKE 1 CAPSULE BY MOUTH TWICE A DAY 03/28 completed NOT TAKING Not Available Not Available Not Available pregabali n 100 mg capsule TAKE 1 CAPSULE BY MOUTH TWICE A DAY 03/28 completed NOT TAKING Not Available Not Available Not Available pregabali n 150 mg capsule TAKE 1 CAPSULE BY MOUTH TWICE A DAY active Not Available Not Available No t Available Lyrica 25 mg capsule 25 mg by oral route. 06/28 completed Not Available Not Available Not Available tramadol ER 300 mg tablet,ex tended release 24 hr TAKE 1 TABLET BY MOUTH EVERY 8 HOURS NEEDED 03/28 completed Not taking Not Available Not Available Not Available cholecalc iferol (vitamin D3) 1,250 mcg (50,000 unit) capsule TAKE 1 CAPSULE BY MOUTH ONE TIME PER WEEK FOR 90 DAYS 2024 active Not Available Not Available Not Avai lable Creon 12,000-38 ,000-60,0 00 unit capsule,d elayed release TAKE 2 CAPSULES BY MOUTH 3 TIMES A DAY 03/28 completed Not Available Not Available Not Available Creon 24,000-76 ,000-120, 000 unit capsule,d elayed release TAKE 2 CAPSULES BY MOUTH 4 TIMES A DAY 03/28 completed Not taking Not Available Not Available Not Available buprenorp eleonora 20 mcg/hour weekly transderm al patch APPLY 1 PATCH PER WEEK active Not Available Not Available No t Available buprenorp eleonora 10 mcg/hour weekly transderm al patch APPLY 1 PATCH PER WEEK 03/28 completed NOT TAKING Not Available Not Available Not Available lancets 33 gauge TO TEST GLYCEMIA ONCE DAILY. active Not Available Not Available No t Available buprenorp eleonora 15 mcg/hour weekly transderm al patch APPLY 1 PATCH TO SKIN TRANSDER MAL ONCE A WEEK 30 DAYS 03/28 completed NOT TAKING Not Available Not Available Not Available dicyclomi ne 10 mg tablet Take 1 tablet 3 times a day by oral route. active Not Available Not Available No t Available Belbuca [address] 1 FILM BUCALLY EVERY 12 HOURS 03/28 completed NOT TAKING Not Available Not Available Not Available Belbuca [address] 1 FILM BUCALLY TWICE A DAY 03/28 completed Not taking Not Available Not Available Not Available naloxone 4 mg/actuat ion nasal spray IN CASE OF EMERGENC Y active Not Available Not Available No t Available Accu-Chek Guide test strips USE TO CHECK GLYCEMIA ONCE DAILY active Not Available Not Available No t Available metoprolo l succinate ER 100 mg capsule sprinkle, ext. release 24 hr 0 Refill(s ) 2024 active not taking Not Available Not Available Not Available tramadol 100 mg tablet TAKE 1 TABLET BY MOUTH EVERY 6-8 HOURS NEEDED 03/28 completed Not taking Not Available Not Available Not Available Gvoke HypoPen 2-Pack 1 mg/0.2 mL subcutane ous auto-inje ctor INJECT 1 MG EVERY DAY BY SUBCUTAN EOUS ROUTE FOR 30 DAYS, FOR HYPOGLYC EMIA <70. 07/09/ 2025 active Not Available Not Available Not Avai lable [employer] COVID-19 Ag Home Test kit 02/19 completed Not Available Not Available Not Available FreeStyle Ariella 3 Plus Sensor device apply on sensor every 15 days 2024 active Not Available Not Available Not Avai lable Vitals Date Recorded Body height Body mass index (BMI) Body weight Systolic And Diastolic Provider Name and Address Organization Details Last Updated DateTime 01/27/2025 167.64 cm 30.7 kg/m2 71206.55 g 211/155 mm[Hg] RUBIA Quezada 01/27/2025 14:30:07 Social History Question Answer Notes LastModified by Organizat ion Details LastModified Time Tobacco Smoking Status Never Smoker DAVID Joseph Dr. 09/26/2022 14:46:38 Do You Have An Advance Directive? No [email or web address] Information not available 09/26/2022 If You Are , What Was Your Level Of Alcohol Consumption Prior To ? None Information not available 09/26/2022 What Is Your Level Of Caffeine Consumption? Occasional Information not available 09/26/2022 What Type Of Diet Are You Following? REGULAR Information not available 09/26/2022 Do You Have A Medical Power Of Thread Grinder? No [email or web address] Information not available 09/26/2022 How Many Children Do You Have? 1 [email or web address] Information not available 09/26/2022 Do You Have A Patient Advocate? No [email or web address] Information no t available 09/26/2022 What Is Your Relationship Status? [email or web address] Information not available 09/26/2022 Are You Sexually Active? No [email or web address] Information not available 09/26/2022 Do You Have Difficulty Walking Or Climbing Stairs? No [email or web address] Information not available 09/26/2022 Sex: Female Functional Status Question Answer Note LastModified by Organizat ion Details LastModified Time Do you use any illicit or recreational drugs? No [email or web address] Information not available 09/26/2022 Do you or have you ever used any other forms of tobacco or nicotine? No Information not available 09/26/2022 What is your level of alcohol consumption? None Information not available 09/26/2022 Are you currently employed? No [email or web address] Information not available 09/26/2022 What is your status? Not [email or web address] Information no t available 09/26/2022 Are you able to walk independently without assistance or assistive devices? YESWOREST [email or web address] Information not available 09/26/2022 Are you able to care for yourself independently? Yes [email or web address] Information not available 09/26/2022 What is your exercise level? Occasional [email or web address] Information not available 09/26/2022 Mental Status None recorded. Family History Relationship Description Onset Age of this Age Resolved Age Notes LastModified by Organization Details LastModified Time Paternal Grandfather Malignant neoplastic disease [email or web address] Not available 2022 14:46:24 Medical History Condition Response Coronary Artery Disease N Other N High Blood Pressure N Hyperthyroidism N Emphysema N Ulcers/heartburn/reflux N Anxiety Disorder N Arthritis N Cancer N Stroke N Shortness of breath N Fibromyalgia N Kidney Disease N Heart Problems N STD N Fainting Spells/Dizziness/Vertigo N Herpes N Angioplasty or heart catheter N Tuberculosis N Heart attack N Blocked Artery N Asthma N Diverticulitis or Colitis N Hepatitis N Pulmonary Embolism N Thyroid Disease N Steroid Use N Hypothyroidism N Glaucoma N Pacemaker N Blood Disease N Chest Pain or Angina N Hypoglycemia N High Cholesterol Y Dialysis N Falls N Anemia N Diabetes N Seizures/Epilepsy N Abnormal heart beat N Congestive Heart Failure (CHF) N Epilepsy/Seizures N Blood thinners N Damaged heart valve N Heart Disease N Hypertension N Osteoporosis N Gynecological History Statement/Question Response Abnormal Pap N Date of Last Mammogram 12/19/2023 Date of LMP 05/21/2015 On BCP's at Conception? N STIs/STDs N Was the recent bone density a DEXA or DX A? N HPV Vaccine Y Current Control Method Hysterectom y Most Recent Mammogram 12/19/2023 Annual Exam N Date of Last Colonoscopy 10/19/2024 Sexually Active? N Menses Monthly N Date of Last Pap Smear 05/21/2015 Sexual Problems? N Desired Control Method N/A Approximate Hormone Replacement Therapy N Obstetrics History GPAL:G 1 P 1 0 0 1 Type Value Full Term 1 Living 1 Total 1 Immunizations Vaccine Type Date Status Note Provider Name and Address Organization Details Recorded Time COVID-19, mRNA, LNP-S, PF, 30 mcg/0.3 mL dose, aldo-sucrose 10/03/19 24 cancelled patient objection Alexx Garcia MD [address], [place], [address], [place] - Dr. Tomi Quezada 10/03/2023 18:30:12 Influenza, MDCK, quadrivalent, preservative 10/03/19 24 cancelled patient objection Alexx Garcia MD [address], [place], [address], [place] - Dr. Tomi Quezada 10/03/2023 18:30:12 COVID-19, mRNA, LNP-S, PF, 30 mcg/0.3 mL dose 06/21/19 21 completed KEYLA TAP[place], [place] - Dr. Tomi Quezada 09/26/2022 14:36:31 COVID-19, mRNA, LNP-S, PF, 30 mcg/0.3 mL dose 07/20/19 21 completed KEYLA TAP[place], [place] - Dr. Tomi Quezada 09/26/2022 14:36:35 Tdap 05/21/19 19 completed [place], [place] - Dr. Tomi Quezada 09/26/2022 14:49:53 Influenza, MDCK, trivalent, preservative 01/24/20 24 cancelled patient objection Maritza cMpherson NP [address], [place], [address], [place] - Dr. Tomi Quezada 01/24/2024 17:42:28 Influenza, MDCK, trivalent, preservative 02/07/20 24 cancelled patient objection Maritza Mcpherson NP [address], [place], [address], [place] - Dr. Tomi Quezada 02/08/2024 11:15:01 Influenza, MDCK, trivalent, preservative 03/21/20 24 cancelled patient objection CHASITY WEISS [address], [place], [address], [place] - Dr. Tomi Quezada 03/21/2024 17:11:37 RSV, bivalent, protein subunit RSVpreF, diluent reconstituted, 0.5 mL, PF 03/03/20 completed DAVID Coreas - Dr. Tomi Quezada 04/03/2025 14:43:18 influenza nasal, unspecified formulation 06/06/19 completed DAVID Coreas - Dr. Tomi Quezada 04/03/2025 14:45:37 Influenza, MDCK, trivalent, PF 08/21/19 25 cancelled patient objection CHASITY WEISS [address], [place], [address], [place] - Dr. Tomi Quezada 08/20/2024 10:44:31 Influenza, MDCK, trivalent, preservative 11/27/19 cancelled patient objection Carlin Patterson NP [address], [place], [address], [facility] - Dr. Tomi Quezada 11/26/2024 17:55:55 COVID-19, mRNA, LNP-S, PF, aldo-sucrose, 30 mcg/0.3 mL 11/27/19 cancelled patient objection Carlin Patterson NP [address], [place], [address], [facility] - Dr. Tomi Quezada 11/26/2024 17:55:55 Past Encounters Encounter ID Performer Location Encounter Start Date Encounter Closed Date Diagnosis/Indication Diagnosis SNOMED-CT Code Diagnosis ICD10 Code Diagnosis IMO Codes Diagnosis Note [id number] Tomi Quezada MD [facility] [address], [facility] [address] [place] [address] 01/27/2025 14:22:34 01/27/2025 15:43:11 Screening for malignant neoplasm of colon 913793803 Z12.11 12/06/2024 FECAL Depression screening 171 184611 Z13.31 negative Immunization due 6457106 08 Z23 [id number] tdap, flu & covid UP TO DATE. Screening for malignant neoplasm of cervix 395469025 Z12.4 05/21/2015 Body mass index 30+ - obesity 414699139 Z68.30 003481 30.7 Bacterial sinusitis 7034 17167 J32.9 B96.89 [id number] will treat as belowconti nue with flonase Health Concerns Section Related Observation LastModified by Organization Detai ls LastModified Time None Recorded Concern Status LastModified by Organization Details LastModified Time None Recorded Payers Encounter Date Sequence Insurance Name Policy Number Policy Lamar Covered Member ID Lamar Member ID Guarantor Name 01/27/2025 1 [employer] ([id number] Kasia Barber [id number] Kasia Barber Notes Date Note Type Note Provider Name and Address Organization Details Recorded Time 5 text/html Transition Care ManagementReported by Patient VIRTUAL VISIT: This is telehealth visit using real-time audio/video communication. Patient's verbal consent has been obtained to conduct telemedicine visit.Patient is located at home. Provider is located at the office.Patient verbalizes awareness of the limitations of a telemedicine visit and agrees to an in-person follow-up if needed Patient's consent in on file in the medical record.pending to do labs, ordered from 11/26/2024 Sinus pressure: States having nasal congestion, sinus pressure, associated to headache, postnasal drip Denies: fever, chest pain, shortness of breathhas been using flonase Went to ER for bloody emesis, H and H stablewas told Pending to see Dr Martinez went to ER for emesis 6-7 x and drop in hemoglobin 9was eval by Dr Wilson, hx of multiple EGDs with no bleeding sourcelabs remained stable, advised against repeat egdcontinues with nausea Pt has PO intolerance and cant really eat bc of this glucose levels drop to 50sstates glucose tabs dont really increase itpatient on multiple meds that casn worsen this like codeine and buprenorphine on buprenorphine patches, pregabalin, and T3 for pain control Patient called for hospital f/u 09/07/2024-09/09/2024Dx: UGI bleed, went in for vomiting blood and abdominal painEGD: hiatal hernia, non bleeding Gastric ulcersCBC, CMP normal, lipaseno further hematemesis, denies black stoolsalways has abdominal painf/u/ gi 6 weeks, repeat egd 3 months right knee painhad ragini placed some years backtold in hospital to f/u with ortho due to mass developing around rodno knee imaging seen from hospitalrefer to orthointermittent right knee pain, no swelling, fevers, weight loss Patient called requesting rx for glucometer due to having low blood sugar while hospitalized 08/21-08/24 --went back due to abdominal painRx: no changes--no new or discontinued medications Hypoglycemiareports has had intermittent feeling of low blood sugar--gets shaky and sweatsEats or drinks something sweet and symptoms improvewhile in the hospital was recommended to have glucometer to monitor symptoms Patient in for hospital f/u from [facility]--was in the ER (not admitted) Dx; Panniculitus Rx: unchanged, no new medications Current pain unchanged; reports always in pain due to chronic pancreatitisfollowing pain managementf/u with [facility] [place] [facility] Gamble 11/2024denies chest pain, sob, fevers, chills, vomiting or diarrhea+nausea, abdominal pain Hospitalized at [facility] from 05/24/2024-06/04/2024 (request record)Patient went back to [facility] 06/08/2024-06/15/2024 for pancreatitis pain again. Always has pain Rx: no changes; needing refills on promethazine and scopalamineDx with acute pancreatitis (went in with vomiting, abdominal pain) with abdominal infectionStates was also diagnosed with an autoimmune d/o does not recall whatGiven referrals to f/u with GI and specialist of autoimmune disorderdenies etoh usedenies fevers, chills, continues with pain, no vomiting HTNReports all her blood pressure medications were stopped upon hospital discharged due to low bp in the hospitalWas told bp is high at home due to painreturned home bp monitoring system due to being told machine was inaccuratehas not resumed bp medications due to be being told bp elevated due to her pain and syncope was due to all the bp medications she was takingis going to schedule f/u with cardiology for bp re-eval--still pending cardiology appointment--rescheduledwi ll start amlodipine 5mg half tab daily previously Patient having a flare up from Chronic pancreatitis, pain meds not working (t3, buprenorphine patch, lyrica)unable to get meds from pain mgmt Dr Escalona out of office on Fridaysspoke to office staff and ok to send break through meds for few daysurged pt to make appt zoila on sunday; pain much improvedseen by pain management 4 days ago Syncope--has not recurredsuggested to see neurology from cardiology for possible seizure disorder-had traumatic head injury in Dec 2023- hit back of head on bath tub s/p syncope- since then has been experience severe sudden headache described as lightening bolt sensation and becomes incapacitatedwas referred to dr portillo but has not made appt but states she will schedule. denies new or worsening symptomsstates neurology requested new referral--will send again Went to cardiology earlier this monthplaced on heart monitor- Blood pressure remained elevated 150s over 100s- reports mild headache- last vist medications for BP reviewed- taking Amlodipine 5mg tab, Losartan 100mg- started on metoprolol 25mgER- will increase metoprolol to 50mg ER- hasdcardiology appt 05/02/2024 Dr. Keyes EP; has appts for tilt table and to have loop recorder placed. Chronic abdominal pain/Gastroparesistold appointment with Dr. Gamble 11/2024; does not want to see any other gidue to chronic recurrent Pancreatitismanaged by pain management; has not seen girefill of promethazinerefer to second gi until seen by dr diego not scheduled gi appointment Chronic back pain follows pain managementDr Rafaeianon tizanadine 6m, takes between 1 - to -4 times dailydenies illicit drug use vitamin dtaking supplementrecheck lab mixed dldnot taking medication. MDD/GADdiagnosed in her 20striggers: recent divorceno longer following Dr Sr, [facility] well and doesn't feel like needs medications at this timereports just having problems sleeping--would like something to help her sleep Carlin Patterson NP [address], [place], [address], [place] - Dr. Tomi Quezada 01/27/2025 15:36:29 OBGyn Episode No OBEpisode recorded.
--- OUTSIDE RECORDS SUMMARY | 2025-04-21 18:52 | XMS_ITS | Continuity of Care Document ---
Author Organization [place] - Dr. Tomi Quezada, [facility] Address [address], [address] [place] [address] Care Team Providers Care Administrative Technician Name Role Phone [facility] Pain Management Assessment Encounter Date Assessment Date Assessment LastModified by Organization Details LastModified Time 01/30/2025 01/30/2025 Patient presented for medication refill. Patient tolerating medication well at current dose without adverse effects. Refilled as below. Discussed plan with patient, who expressed understanding . Follow up as noted below. [email or web address] Not available 01/30/2025 14:57:54 Plan of Treatment Reminders Order Date Submit Date Provider Last Modified By Organization Details Last Modified Time Details Appointments None recorded. Lab None recorded. Referral dentist referral 2024 025 [facility], [address], [place], [address], 5 04:10:04 Procedures None recorded. Surgeries None recorded. Imaging CT, maxillofac ial, w/o contrast 2024 025 [email or web address] [facility], [address], [place], [address], 5 23:17:27 MAMMO, screening, bilateral 2024 025 [facility], [address], [address], [place], [address], 5 04:02:57 Medication Orders None recorded. Patient TargetsNo targets recorded. Patient InstructionsNo instructions recorded. Reason for Referral Dentist Referral for Infecti on of tooth Referring Physician: Madeleine Grant, Family Medicine, Encounter Date: 01/30/2025 Problems Name Problem SNOMED Code Status Onset Date Resolution Date Notes Provider Name and Address Organization Details Recorded Time Acute pancreatitis 296301211 Active [place] - Dr. Tomi Quezada 5 16:24:31 Restless legs syndrome 19538082 Active [place], [place] - Dr. Tomi Quezada 5 16:24:31 Migraine 71551905 Active [place] - Dr. Tomi Quezada 5 16:24:31 Simple obesity 393071518 Active [place] - Dr. Tomi Quezada 5 16:24:31 Chronic pancreatitis 337256276 Active 2022 JESUS PIMENTEL NP [address], [place], [address], [place] - Dr. Tomi Quezada 5 15:56:21 Mixed hyperlipidemia 536480166 Active 2022 [place] - Dr. Tomi Quezada 3 16:50:12 Vitamin B12 deficiency (non anemic) 18974535 Active 2022 [place] - Dr. Tomi Quezada 3 16:50:13 Conjunctivitis 2366682 Active 2022 Alexx Garcia MD [address], [place], [address], [place] - Dr. Tomi Quezada 3 13:12:09 Chronic nonspecific abdominal pain 741372933 Active 2022 JESUS PIMENTEL NP [address], [place], [address], [place] - Dr. Tomi Quezada 5 16:51:48 Opioid dependence 57843732 Active 2022 Tomi Quezada MD [address], [place], [address], [place] - Dr. Tomi Quezada 3 21:55:27 Benzodiazepine dependence 365589440 Active 2022 Tomi Quezada MD [address], [place], [address], [place] - Dr. Tomi Quezada 3 21:55:46 Low back pain 662315758 Active 2023 JESUS PIMENTEL NP [address], [place], [address], [place] - Dr. Tomi Quezada 5 15:56:21 Tachycardia 3356354 Active 2023 Maritza Mcpherson NP [address], [place], [address], [place] - Dr. Tomi Quezada 4 17:47:04 Seizure disorder 332790077 Active 2023 Maritza Mcpherson NP [address], [place], [address], [place] - Dr. Tomi Quezada 4 11:16:55 Headache 44789778 Active 2023 Maritza Mcpherson NP [address], [place], [address], [place] - Dr. Tomi Quezada 4 11:17:33 Essential hypertension 09234120 Active 2023 JESUS PIMENTEL NP [address], [place], [address], [place] - Dr. Tomi Quezada 16:50:08 Tooth infection 689852857 Active 2024 JESUS PIMENTEL NP [address], [place], [address], [place] - Dr. Tomi Quezada 5 15:56:21 Nausea and vomiting, unspecified vomiting type 36715350 Active 2024 JESUS PIMENTEL NP [address], [place], [address], [place] - Dr. Tomi Quezada 16:41:02 Motion sickness 66465880 Active 2024 JESUS PIMENTEL NP [address], [place], [address], [place] - Dr. Tomi Quezada [...] 17:11:04 025 Hospital follow up completed PARAS Quezada 06/25/2024 16:23:44 025 Hospital follow up completed Lor Quezada 06/04/2024 14:31:02 024 Hospital follow up completed RAYNA Quezada 01/24/2024 14:09:45 024 Date of Last Mammogram completed Lor Quezada 09/15/2024 15:01:03 024 Most Recent Mammogram completed PARAS Quezada 03/21/2024 16:45:16 024 Hospital follow up completed RAYNA Quezada 11/07/2023 14:38:25 023 Hospital follow up completed Lor Quezada 02/26/2023 14:59:24 023 removal of spinal neurostimulator completed KEYLA Quezada 09/26/2022 14:48:26 016 Date of Last [...] Name and Address Organization Details Recorded Time 01809 iodine medicatio n Not available Not available Not available 04/02/2025 5933 RxNorm Not Available [employer] - prod 19:27:15 65484 prednison e medicatio n Not available Not available Not available 04/02/2025 8640 RxNorm Not Available [employer] - prod 19:27:15 6339 shellfish derived food,medi cation Not available Not available Not available 09/26/[address] 3 14:35:17 8619 loperamid e medicatio n Not available Not available Not available 06/25/2024 6468 RxNorm Other react ions and sever ities : 'Weal (diso rder) '. DAVID Martin Dr. 5 10:07:15 8899 ketorolac medicatio n Not available Not available Not available 08/20/2024 [address] 5 10:07:15 Medications [...] hours by oral route for 7 days. 02/10 completed Not Available Not Available Not Available [...] FOR 30 DAYS, FOR HYPOGLYC EMIA <70. 2024 active Not Available Not Available Not Avai lable [employer] COVID-19 Ag Home Test kit 02/19 completed Not Available Not Available Not Available FreeStyle Ariella 3 Plus Sensor device apply on sensor every 15 days 2024 active Not Available Not Available Not Avai lable Vitals Date Recorded Body height Provider Name an d Address Organization Details Last Updated DateTime 01/30/2025 167.64 cm LUIS ANTONIO Quezada 01/30/2025 14:42:35 Social History Question Answer Notes LastModified by Organizat ion Details LastModified Time Tobacco Smoking Status Never Smoker DAVID Joseph Dr. 09/26/2022 14:46:38 Do You Have An Advance Directive? No [email or web address] Information not available 09/26/2022 If You Are , What Was Your Level Of Alcohol Consumption Prior To ? None Information not available 09/26/2022 What Is Your Level Of Caffeine Consumption? Occasional [email or web address] Information not available 09/26/2022 What Type Of Diet Are You Following? REGULAR [email or web address] Information not available 09/26/2022 Do You Have A Medical Power Of Roving Can Tender? No [email or web address] Information not available 09/26/2022 How Many Children Do You Have? 1 [email or web address] Information not available 09/26/2022 Do You Have A Patient Advocate? No [email or web address] Information no t available 09/26/2022 What Is Your Relationship Status? [email or web address] Information not available 09/26/2022 Are You Sexually Active? No [email or web address] Information not available 09/26/2022 Do You Have Difficulty Walking Or Climbing Stairs? No [email or web address] Information not available 09/26/2022 Sex: Female Functional Status Question Answer Note LastModified by Organizat ion Details LastModified Time Do you use any illicit or recreational drugs? No [email or web address] Information not available 09/26/2022 Do you or have you ever used any other forms of tobacco or nicotine? No [email or web address] Information not available 09/26/2022 What is your level of alcohol consumption? None [email or web address] Information not available 09/26/2022 Are you currently employed? No [email or web address] Information not available 09/26/2022 What is your status? Not [email or web address] Information no t available 09/26/2022 Are you able to walk independently without assistance or assistive devices? YESWOREST [email or web address] Information not available 09/26/2022 Are you able to care for yourself independently? Yes [email or web address] Information not available 09/26/2022 What is your exercise level? Occasional [email or web address] Information not available 09/26/2022 Mental Status None recorded. Family History Relationship Description Onset Age of this Age Resolved Age Notes LastModified by Organization Details LastModified Time Paternal Grandfather Malignant neoplastic disease [email or web address] Not available 2022 14:46:24 Medical History Condition Response Coronary Artery Disease N Other N High Blood Pressure N Thyroid Disease N Hyperthyroidism N Emphysema N Ulcers/heartburn/reflux N Steroid Use N Hypothyroidism N Glaucoma N Pacemaker N Anxiety Disorder N Arthritis N Blood Disease N Cancer N Stroke N Hypoglycemia N Chest Pain or Angina N Shortness of breath N High Cholesterol Y Fibromyalgia N Dialysis N Kidney Disease N Heart Problems N Fainting Spells/Dizziness/Vertigo N STD N Falls N Herpes N Anemia N Angioplasty or heart catheter N Diabetes N Seizures/Epilepsy N Abnormal heart beat N Tuberculosis N Congestive Heart Failure (CHF) N Heart attack N Blocked Artery N Asthma N Epilepsy/Seizures N Diverticulitis or Colitis N Blood thinners N Hepatitis N Damaged heart valve N Heart Disease N Pulmonary Embolism N Hypertension N Osteoporosis N Gynecological History [...] objection Alexx Garcia MD [address], [place], [address], [place] Dr. Tomi Quezada 10/03/2023 18:30:12 Influenza, MDCK, quadrivalent, preservative 10/03/19 24 cancelled patient objection Alexx Garcia MD [address], [place], [address], [place] - Dr. Tomi Quezada 10/03/2023 18:30:12 COVID-19, mRNA, LNP-S, PF, 30 mcg/0.3 mL dose 06/21/19 21 completed KEYLA TAPIA null, [place] - Dr. Tomi Quezada 09/26/2022 14:36:31 COVID-19, mRNA, LNP-S, PF, 30 mcg/0.3 mL dose 07/20/19 21 completed KEYLA TAPIA null, [place] - Dr. Tomi Quezada 09/26/2022 14:36:35 Tdap 05/21/19 19 completed KEYLADAYSI CAMPOSTAPIA null, [place] - Dr. Tomi Quezada 09/26/2022 14:49:53 Influenza, MDCK, trivalent, preservative 01/24/20 24 cancelled patient objection Maritza Mcpherson NP [address], [place], [address], [place] - Dr. Tomi Quezada 01/24/2024 17:42:28 Influenza, MDCK, trivalent, preservative 02/07/20 24 cancelled patient objection Maritza Mcpherson NP [address], [place], [address], [place] - Dr. Tomi Quezada 02/08/2024 11:15:01 Influenza, MDCK, trivalent, preservative 03/21/20 24 cancelled patient objection MADELEINE WEISS [address], [place], [address], [place] - Dr. Toim Quezada 03/21/2024 17:11:37 RSV, bivalent, protein subunit RSVpreF, diluent reconstituted, 0.5 mL, PF 03/03/20 completed DAVID Coreas - Dr. Tomi Quezada 04/03/2025 14:43:18 influenza nasal, unspecified formulation 06/06/19 completed DAVID Coreas - Dr. Tomi Quezada 04/03/2025 14:45:37 Influenza, MDCK, trivalent, PF 08/21/19 25 cancelled patient objection MADELEINE WEISS [address], [place], [address], [place] - Dr. Tomi Quezada 08/20/2024 10:44:31 Influenza, MDCK, trivalent, preservative 11/27/19 25 cancelled patient objection Carlin Patterson NP [address], [place], [address], [place] - Dr. Tomi Quezada 11/26/2024 17:55:55 COVID-19, mRNA, LNP-S, PF, aldo-sucrose, 30 mcg/0.3 mL 11/27/19 25 cancelled patient objection Carlin Patterson NP [address], [place], [address], [place] - Dr. Tomi Quezada 11/26/2024 17:55:55 Past Encounters Encounter ID Performer Location Encounter Start Date Encounter Closed Date Diagnosis/Indication Diagnosis SNOMED-CT Code Diagnosis ICD10 Code Diagnosis IMO Codes Diagnosis Note [id number] Tomi Quezada MD [facility] [address], [address] [place] [address] 01/27/2025 14:22:34 01/27/2025 15:43:11 Screening for malignant neoplasm of colon 689645158 Z12.11 12/06/2024 FECAL Depression screening 171 488935 Z13.31 negative Immunization due 0217667 08 Z23 3382459 tdap, flu & covid UP TO DATE. Screening for malignant neoplasm of cervix 909765375 Z12.4 05/21/2015 Body mass index 30+ - obesity 336929921 Z68.30 295785 30.7 Bacterial sinusitis 7034 58850 J32.9 B96.89 [id number] will treat as belowconti nue with flonase [id number] Alexx Garcia MD [facility] [address] [address] 01/29/2025 10:53:44 01/29/2025 11:14:16 Screening mammography 34022740 Z12.31 12/19/2023 Depression screening 171 756973 Z13.31 negative Body mass index 30+ - obesity 479080484 Z68.30 454370 30.7 Acute maxi llary sinusitis 91552757 J01.00 31945748 refer to stat CT. If unable to have CT done today recommend patient go to ER or if new or worsening symptoms. continue augmentin [id number] Alexx Garcia MD [facility] [address], [address] [address] 01/30/2025 14:38:34 01/30/2025 15:05:49 Screening mammography 97906432 Z12.31 12/19/2023 Depression screening 171 461154 Z13.31 negative Infection of tooth 12726 8007 K04.7 531811 continue augmentin, refer to [facility]. send CT to other radiology clinictake tylenol/ib uprofen as directed for pain. ER warnings reiterated --voiced understand ing Health Concerns Section Related Observation LastModified by Organization Detai ls LastModified Time None Recorded Concern Status LastModified by Organization Details LastModified Time None Recorded Payers Encounter Date Sequence Insurance Name Policy Number Policy Lamar Covered Member ID Lamar Member ID Guarantor Name 01/30/2025 1 [employer]AW[employer] (O) [id number] Kasia Barber [id number] Kasia Barber Notes Date Note Type Note [...] consent in on file in the medical record. Patient called for f/u on sinus infectionPatient reports CT could not be scheduled until 2 weeks so she went to the ER and they told her she had a right tooth/gum infection and given a mouthwashstill taking augmentinstill experiencing fevers intermittentstates does not have dental coverage reports not feeling better and feels that right side of face is swollen--around eye, cheeck and nose.Also, reports started with fever last night of 100.3, took ibuprofen and its 100.denies: acute vision changes, double vision,admits does have headache, no neck pain pending to do labs, ordered from 11/26/2024 Sinus pressure: States having nasal congestion, sinus pressure, associated to headache, postnasal drip Denies: fever, chest pain, shortness of breathhas been using flonase Was in the ER 3 weeks ago for uncontrolled abdominal pain Went to ER for bloody emesis, H and H stablewas told Pending to see Dr Martinez --patient scheduled and seen went to ER for emesis 6-7 x [...] symptoms Patient in for hospital f/u from [facility]--was in the ER (not admitted) Dx; Panniculitus Rx: unchanged, no new medications Current pain unchanged; reports always in pain due to chronic pancreatitisfollowing pain managementf/u with [facility] Dr. Gamble 11/2024denies chest pain, sob, fevers, chills, vomiting or diarrhea+nausea, abdominal pain Hospitalized at [facility] from 05/24/2024-06/04/2024 (request record)Patient went back to [facility] 06/08/2024-06/15/2024 for pancreatitis pain again. Always has [...] appointment Chronic back pain follows pain managementDr Harrell tizanadine 6m, takes between 1 - to -4 times dailydenies illicit drug use vitamin dtaking supplementrecheck lab mixed dldnot taking medication. MDD/GADdiagnosed in her 20striggers: recent divorceno longer following Dr [facility] well and doesn't feel like needs medications at this timereports just having problems sleeping--would like something to help her sleep MADELEINE WEISS [address], [place], [address], [place] - Dr. Tomi Quezada 01/30/2025 15:04:04 OBGyn Episode No OBEpisode recorded.
--- OUTSIDE RECORDS SUMMARY | 2025-04-21 18:53 | XMS_ITS | Continuity of Care Document ---
Author Organization [place] - Dr. Tomi Quezada, [facility] Address [address], [address] [place] [address] Care Team Providers Care Tobacco Sprayer Name Role Phone [facility] Pain Management Assessment No assessment recorded. Plan of Treatment Reminders Order Date Submit Date Provider Last Modified By Organization Details Last Modified Time Details Appointments None recorded. Lab None recorded. Referral None recorded. Procedures None recorded. Surgeries None recorded. Imaging MAMMO, screening, bilateral 2024 025 [facility], [address], [place], [address], 5 04:02:44 CT, maxillofac ial, w/o contrast 2024 025 [facility], [address], [address], [place], [address], 5 04:07:51 Medication Orders None recorded. Patient TargetsNo targets recorded. Patient InstructionsNo instructions recorded. Reason for Referral None Reported. Problems Name Problem SNOMED Code Status Onset Date Resolution Date Notes Provider Name and Address Organization Details Recorded Time Acute pancreatitis 192551377 Active DAVID Solano Dr. 16:24:31 Restless legs syndrome 00997801 DAVID Funez Dr. 16:24:31 Migraine 47465496 Active DAVID Solano Dr. 16:24:31 Simple obesity 987193733 DAVID Funez Dr. 5 16:24:31 Chronic pancreatitis 453342716 Active 2022 JESUS PIMENTEL NP [address], [place], [address], [place] - Dr. Tomi Quezada 5 15:56:21 Mixed hyperlipidemia 868427244 Active 2022 JERROD lutz [place] - Dr. Tomi Quezada 3 16:50:12 Vitamin B12 deficiency (non anemic) 44001736 Active 2022 JERROD [place]utz, [place] - Dr. Tomi Quezada 16:50:13 Conjunctivitis 1920544 Active 2022 Alexx Garcia MD [address], [place], [address], [place] - Dr. Tomi Quezada 13:12:09 Chronic nonspecific abdominal pain 684079505 Active 2022 JESUS PIMENTEL NP [address], [place], [address], [place] - Dr. Tomi Quezada 5 16:51:48 Opioid dependence 10825108 Active 2022 Tomi Quezada MD [address], [place], [address], [place] - Dr. Tomi Quezada 21:55:27 Benzodiazepine dependence 871730903 Active 2022 Tomi Quezada MD [address], [place], [address], [place] - Dr. Tomi Quezada 3 21:55:46 Low back pain 091864022 Active 2023 JESUS PIMENTEL NP [address], [place], [address], [place] - Dr. Tomi Quezada 5 15:56:21 Tachycardia 4143537 Active 2023 Maritza Mcpherson NP [address], [place], [address], [place] - Dr. Tomi Quezada 4 17:47:04 Seizure disorder 386055763 Active 2023 Maritza Mchperson NP [address], [place], [address], [place] - Dr. Tomi Quezada 11:16:55 Headache 26099076 Active 2023 Maritza Mcpherson NP [address], [place], [address], [place] - Dr. Tomi Quezada 11:17:33 Essential hypertension 62149544 Active 2023 JESUS PIMENTEL NP [address], [place], [address], [place] - Dr. Tomi Quezada 16:50:08 Tooth infection 405453652 Active 2024 JESUS PIMENTEL NP [address], [place], [address], [place] - Dr. Tomi Quezada 15:56:21 Nausea and vomiting, unspecified vomiting type 29470397 Active 2024 JESUS PIMENTEL NP [address], [place], [address], [place] - Dr. Tomi Quezada 16:41:02 Motion sickness 77970449 Active 2024 JESUS PIMENTEL NP [address], [place], [address], [place] - Dr. Tomi Quezada 17:26:23 Problem Notes None recorded. Procedures Surgical History Date Name Laterality Status Provider Name and Address Organization Details Recorded Time Hospital follow up completed TALITA Quezada 11/26/2024 16:30:48 Date of Last Colonoscopy completed RUBIA Quezada [...] 15:01:03 024 Most Recent Mammogram completed PARAS RO[place] - Dr. Tomi Quezada 03/21/2024 16:45:16 024 Hospital follow up completed RAYNA HERNANDEZ - Dr. Tomi Quezada 11/07/2023 14:38:25 023 Hospital follow up completed Lor HERNANDEZ - Dr. Tomi Quezada 02/26/2023 14:59:24 023 removal of spinal neurostimulator completed KEYLA HERNANDEZ - Dr. Tomi Quezada 09/26/2022 14:48:26 016 Date of Last Pap Smear completed KEYLA HERNANDEZ - Dr. Tomi Quezada 09/26/2022 14:45:18 016 Total Hysterectomy completed KEYLA HERNANDEZ - Dr. Tomi Quezada 09/26/2022 14:47:29 Appendectomy completed KEYLA HERNANDEZ - Dr. Tomi Quezada 09/26/2022 14:47:36 Cholecystectomy completed KEYLA HERNANDEZ - Dr. Tomi Quezada 09/26/2022 14:47:46 tonsillectomy completed KEYLA HERNANDEZ - Dr. Tomi Quezada 09/26/2022 14:47:53 Knee Surgery completed KEYLA Quezada 09/26/2022 14:48:50 Imaging Results None recorded. Procedure Notes None recorded. Medical Equipment None Reported. Allergies Allergen ID Allergen Name Allergen Category Reaction Reaction Severity Criticality Documentation Date Start Date Code Code System Note Provider Name and Address Organization Details Recorded Time 50803 iodine medicatio n Not available Not available Not available 04/02/2025 5933 RxNorm Not Available vesna - External Data Service - prod 11/13/202 5 19:27:15 82439 prednison e medicatio n Not available Not available Not available 04/02/2025 8640 RxNorm Not Available vesna - External Data [...] Not available Not available Not available 08/20/[address] 5 10:07:15 Medications [...] height Body mass index (BMI) Body weight Provider Name and Address Organization Details Last Updated DateTime 01/29/2025 167.64 cm 30.7 kg/m2 11629.55 g RUBIA HERNANDEZ - Dr. Tomi Quezada 01/29/2025 10:57:05 Social History Question Answer Notes LastModified by Organizat ion Details LastModified Time Tobacco Smoking Status Never Smoker DAVID Joseph Dr. 09/26/2022 14:46:38 Do You Have An Advance Directive? No [email or web address] Information not available 09/26/2022 If You Are , What Was Your Level Of Alcohol Consumption Prior To ? None [email or web address] Information not available 09/26/2022 What Is Your Level Of Caffeine Consumption? Occasional [email or web address] Information not available 09/26/2022 What Type Of Diet Are You Following? REGULAR [email or web address] Information not available 09/26/2022 Do You Have A Medical Power Of Crawler Crane Operator? No [email or web address] Information not available 09/26/2022 How Many Children Do You Have? 1 [email or web address] Information not available 09/26/2022 Do You Have A Patient Advocate? No [email or web address] Information no t available 09/26/2022 What Is Your Relationship Status? Information not available 09/26/2022 Are You Sexually Active? No [email or web address] Information not available 09/26/2022 Do You Have Difficulty Walking Or Climbing Stairs? No [email or web address] Information not available 09/26/2022 Sex: Female Functional Status Question Answer Note LastModified by Organizat ion Details LastModified Time Do you use any illicit or recreational drugs? No Information not available 09/26/2022 Do you or have you ever used any other forms of tobacco or nicotine? No [email or web address] Information not available 09/26/2022 What is your level of alcohol consumption? None [email or web address] Information not available 09/26/2022 Are you currently employed? No [email or web address] Information not available 09/26/2022 What is your status? Not [email or web address] Information no t available 09/26/2022 Are you able to walk independently without assistance or assistive devices? YESWOREST [email or web address] Information not available 09/26/2022 Are you able to care for yourself independently? Yes [email or web address] Information not available 09/26/2022 What is your exercise level? Occasional [email or web address] Information not available 09/26/2022 Mental Status None recorded. Family History Relationship Description Onset Age of this Age Resolved Age Notes LastModified by Organization Details LastModified Time Paternal Grandfather Malignant neoplastic disease [email or web address] Not available 2022 14:46:24 Medical History Condition [...] objection Alexx Garcia MD [address], [place], [address], [place] - Dr. Tomi Quezada 10/03/2023 18:30:12 Influenza, MDCK, quadrivalent, preservative 10/03/19 24 cancelled patient objection Alexx Garcia MD [address], [place], [address], [place] - Dr. Tomi Quezada 10/03/2023 18:30:12 COVID-19, mRNA, LNP-S, PF, 30 mcg/0.3 mL dose 06/21/19 21 completed KEYLA TAPIATAMMY [place] - Dr. Tomi Quezada 09/26/2022 14:36:31 COVID-19, mRNA, LNP-S, PF, 30 mcg/0.3 mL dose 07/20/19 21 completed KEYLA [place] - Dr. Tomi Quezada 09/26/2022 14:36:35 Tdap 05/21/19 19 completed KEYLA [place] - Dr. Tomi Quezada 09/26/2022 14:49:53 Influenza, MDCK, trivalent, preservative 01/24/20 24 cancelled patient objection Maritza Mcpherson, CHAR PULLER [address], [place], [address], [place] - Dr. Tomi Quezada 01/24/2024 17:42:28 Influenza, MDCK, trivalent, preservative 02/07/20 24 cancelled patient objection Maritza Mcpherson, CHAR PULLER [address], [place], [address], [place] - Dr. Tomi Quezada 02/08/2024 11:15:01 Influenza, MDCK, trivalent, preservative 03/21/20 24 cancelled patient objection CHASITY WEISS [address], [place], [address], [place] - Dr. Tomi Quezada 03/21/2024 17:11:37 RSV, bivalent, protein subunit RSVpreF, diluent reconstituted, 0.5 mL, PF 10/14/20 25 completed TALITA [place] - Dr. Tomi Quezada 04/03/2025 14:43:18 influenza nasal, unspecified formulation 06/06/19 completed DAVID Coreas - Dr. Tomi Quezada 04/03/2025 14:45:37 Influenza, MDCK, trivalent, PF 08/21/19 cancelled patient objection CHASITY WEISS [address], [place], [address], [facility] - Dr. Tomi Quezada 08/20/2024 10:44:31 Influenza, MDCK, trivalent, preservative 11/27/19 cancelled patient objection Carlin Patterson NP [address], [place], [address], [facility] - Dr. Tomi Quezada 11/26/2024 17:55:55 COVID-19, mRNA, LNP-S, PF, aldo-sucrose, 30 mcg/0.3 mL 11/27/19 cancelled patient objection Carlin Patterson NP [address], [place], [address], [facility] - Dr. Tomi Quezada 11/26/2024 17:55:55 Past Encounters Encounter ID Performer Location Encounter Start Date Encounter Closed Date Diagnosis/Indication Diagnosis SNOMED-CT Code Diagnosis ICD10 Code Diagnosis IMO Codes Diagnosis Note [id number] Tomi Quezada MD [facility] [address], [facility] [address] [place] [address] 01/27/2025 14:22:34 01/27/2025 15:43:11 Screening for malignant neoplasm of colon 203708198 Z12.11 12/06/2024 FECAL Depression screening 171 867147 Z13.31 negative Immunization due 8059629 08 Z23 8892636 tdap, flu & covid UP TO DATE. Screening for malignant neoplasm of cervix 362126056 Z12.4 05/21/2015 Body mass index 30+ - obesity 528184683 Z68.30 045272 30.7 Bacterial sinusitis 7034 57700 J32.9 B96.89 8437720 will treat as belowconti nue with flonase [id number] Alexx Garcia MD [facility] [address], [facility] [address] [place] [address] 01/29/2025 10:53:44 01/29/2025 11:14:16 Screening mammography 66101576 Z12.31 12/19/2023 Depression screening 171 801296 Z13.31 negative Body mass index 30+ - obesity 153293456 Z68.30 238754 30.7 Acute maxi llary sinusitis 32239578 J01.00 43079153 refer to stat CT. If unable to have CT done today recommend patient go to ER or if new or worsening symptoms. continue augmentin Health Concerns Section Related Observation LastModified by Organization Detai ls LastModified Time None Recorded Concern Status LastModified by Organization Details LastModified Time None Recorded Payers Encounter Date Sequence Insurance Name Policy Number Policy Lamar Covered Member ID Lamar Member ID Guarantor Name 01/29/2025 1 [employer] (O) [id number] Kasia Sunil [id number] Kasia Barber Notes Date Note Type Note Provider Name and Address Organization Details Recorded Time text/html Transition Care ManagementReported by Patient VIRTUAL [...] record. Patient called for f/u on sinus infectionreports not feeling better and feels that right [...] symptoms Patient in for hospital f/u from [facility]--was in the ER (not admitted) Dx; Panniculitus Rx: unchanged, no new medications Current pain unchanged; reports always in pain due to chronic pancreatitisfollowing pain managementf/u with GI [facility] Dr. Gamble 11/2024denies chest pain, sob, fevers, chills, vomiting or diarrhea+nausea, abdominal pain Hospitalized at [facility] from 05/24/2024-06/04/2024 (request record)Patient went back to [facility] 06/08/2024-06/15/2024 for pancreatitis pain again. [...] recent divorceno [facility]'t feel like needs medications at this timereports just having problems sleeping--would like something to help her sleep CHASITY WEISS [address], [place], [address], [place] - Dr. Tomi Quezada 01/29/2025 11:14:12 OBGyn Episode No OBEpisode recorded.
--- OUTSIDE RECORDS SUMMARY | 2025-04-21 18:53 | XMS_ITS | Continuity of Care Document ---
Author Organization [place] - Dr. Tomi Quezada, [facility] Address [address] [facility] Andrey GALINDO [facility] [address] [place] [address] Care Team Providers Care Mc Kay Machine Operator Name Role Phone [facility] Pain Management Assessment No assessment recorded. Plan of Treatment Reminders Order Date Submit Date Provider Last Modified By Organization Details Last Modified Time Details Appointments None record ed. Lab None record ed. Referral None record ed. Procedures None record ed. Surgeries None record ed. Imaging None record ed. Medication Orders None record ed. Patient TargetsNo targets recorded. Patient InstructionsNo instructions recorded. Reason for Referral None Reported. Results Created Date Observation Date Name Description Value Unit Range Abnormal Flag Note LastModifiedBy Organization Detail LastModifiedTime Result Notes None recorded. Problems Name Problem SNOMED Code Status Onset Date Resolution Date Notes Provider Name and Address Organization Details Recorded Time Acute pancreatitis 284472680 Active DAVID Solano - Dr. Tomi Quezada 5 16:24:31 Restless legs syndrome 19032466 DAVID Funez Dr. 5 16:24:31 Migraine 99560006 Active DAVID Solano - Dr. Tomi Quezada 5 16:24:31 Simple obesity 503760745 DAVID Funez Dr. 5 16:24:31 Chronic pancreatitis 458049735 Active 2022 JESUS PIMENTEL [facility] [address], [place], [address], [place] - Dr. Tomi Quezada 5 15:56:21 Mixed hyperlipidemia 543449746 Active 2022 DAVID Terrell - Dr. Tomi Quezada 3 16:50:12 Vitamin B12 deficiency (non anemic) 06512647 Active 2022 JERROD lutz [place] - Dr. Tomi Quezada 3 16:50:13 Conjunctivitis 6518645 Active 2022 Alexx Garcia MD [address], [place], [address], [place] - Dr. Tomi Quezada 3 13:12:09 Chronic nonspecific abdominal pain 489940705 Active 2022 JESUS PIMENTEL NP [address], [place], [address], [place] - Dr. Tomi Quezada 5 16:51:48 Opioid dependence 13583160 Active 2022 Tomi Quezada MD [address], [place], [address], [place] - Dr. Tomi Quezada 21:55:27 Benzodiazepine dependence 176595953 Active 2022 Tomi Quezada MD [address], [place], [address], [place] - Dr. Tomi Quezada 3 21:55:46 Low back pain 026223350 Active 2023 JESUS PIMENTEL NP [address], [place], [address], [place] - Dr. Tomi Quezada 5 15:56:21 Tachycardia 5384017 Active 2023 Maritza Mcpherson NP [address], [place], [address], [place] - Dr. Tomi Quezada 4 17:47:04 Seizure disorder 703631898 Active 2023 Maritza Mcpherson NP [address], [place], [address], [place] - Dr. Tomi Quezada 4 11:16:55 Headache 72572259 Active 2023 Maritza Mcpherson NP [address], [place], [address], [place] - Dr. Tomi Quezada 4 11:17:33 Essential hypertension 38796776 Active 2023 JESUS LOREN JEWELRY ENAMELER [address], [place], [address], [place] - Dr. Tomi Quezada 16:50:08 Tooth infection 721389921 Active 2024 JESUS COLBERTVINO JEWELRY ENAMELER [address], [place], [address], [place] - Dr. Tomi Quezada 15:56:21 Nausea and vomiting, unspecified vomiting type 19296012 Active 2024 JESUS COLBERTVINO JEWELRY ENAMELER [address], [place], [address], [place] - Dr. Tomi Quezada 16:41:02 Motion sickness 78995071 Active 2024 JESUS COLBERTVINO JEWELRY ENAMELER [address], [place], [address], [place] - Dr. Tomi Quezada [...] 024 Date of Last Mammogram completed Lor Bowdeno Quezada 09/15/2024 15:01:03 024 Most Recent Mammogram [...] Dr. Tomi Quezada 09/26/2022 14:47:46 tonsillectomy completed KELYA HERNANDEZ - Dr. Tomi Quezada 09/26/2022 14:47:53 Knee Surgery completed KEYLA HERNANDEZ - Dr. Tomi Quezada 09/26/2022 14:48:50 Imaging Results None recorded. Procedure Notes None recorded. Medical Equipment None Reported. Allergies Allergen ID Allergen Name Allergen Category Reaction Reaction Severity Criticality Documentation Date Start Date Code Code System Note Provider Name and Address Organization Details Recorded Time 57640 iodine medicatio n Not available Not available Not available 04/02/2025 5933 RxNorm Not Available vesna - External Data Service - prod 19:27:15 00036 prednison e medicatio n Not available Not available Not available 04/02/2025 8640 RxNorm Not Available vesna - External Data Service - prod 19:27:15 6339 shellfish derived food,medi cation Not available Not available Not available 09/26/2022 DAVID Joseph - Dr. Tomi Quezada 14:35:17 8619 loperamid e medicatio n Not available Not available Not available 06/25/2024 6468 RxNorm Other react ions and sever ities : 'Weal (diso rder) '. DAVID Martin - Dr. Tomi Quezada 5 10:07:15 8899 ketorolac medicatio n Not available Not available Not available 08/20/2024 37639 RxNorm DAVID Martin - Dr. Tomi Quezada 5 10:07:15 Medications Name Sig Start Date [...] height Body mass index (BMI) Body weight Body height Body mass index (BMI) Body weight Provider Name and Address Organization Details Last Updated DateTime 03/04/2025 165.1 cm 30.8 kg/m2 42257.59 g 165.1 cm 30.8 kg/m2 59624.5 9 g BRIANA HERNANDEZ - Dr. Tomi Quezada 15:33:53 Social History Question Answer Notes LastModified by OrganizTruist ion Details LastModified Time Tobacco Smoking Status Never Smoker DAVID Joseph - Dr. Tomi Quezada 09/26/2022 14:46:38 Do You Have An Advance Directive? No [email or web address] Information not available 09/26/2022 If You Are , What Was Your Level Of Alcohol Consumption Prior To ? None [email or web address] Information not available 09/26/2022 What Is Your Level Of Caffeine Consumption? Occasional [email or web address] Information not available 09/26/2022 What Type Of Diet Are You Following? REGULAR [email or web address] Information not available 09/26/2022 Do You Have A Medical Power Of Financial Sales Professional? No [email or web address] Information not available 09/26/2022 How Many Children Do You Have? 1 [email or web address] Information not available 09/26/2022 Do You Have A Patient Advocate? No [email or web address] Information no t available 09/26/2022 What Is Your Relationship Status? Information not available 09/26/2022 Are You Sexually Active? No [email or web address] Information not available 09/26/2022 Do You Have Difficulty Walking Or Climbing Stairs? No [email or web address] Information not available 09/26/2022 Sex: Female Functional Status Question Answer Note LastModified by Organizat ion Details LastModified Time Do you use any illicit or recreational drugs? No [email or web address] Information not available 09/26/2022 Do you or have you ever used any other forms of tobacco or nicotine? No [email or web address] Information not available 09/26/2022 What is your level of alcohol consumption? None [email or web address] Information not available 09/26/2022 Are you currently employed? No [email or web address] Information not available 09/26/2022 What is your status? Not [email or web address] Information no t available 09/26/2022 Are you able to walk independently without assistance or assistive devices? YESWOREST [email or web address] Information not available 09/26/2022 Are you able to care for yourself independently? Yes [email or web address] Information not available 09/26/2022 What is your exercise level? Occasional [email or web address] Information not available 09/26/2022 Mental Status None recorded. Family History Relationship Description Onset Age of this Age Resolved Age Notes LastModified by Organization Details LastModified Time Paternal Grandfather Malignant neoplastic disease Not available 2022 14:46:24 Medical History Condition [...] objection Alexx Garcia MD [address], [place], [address], [facility] - Dr. Tomi Quezada 10/03/2023 18:30:12 Influenza, MDCK, quadrivalent, preservative 10/03/19 24 cancelled patient objection Alexx Garcia MD [address], [place], [address], [place] - Dr. Tomi Quezada 10/03/2023 18:30:12 COVID-19, mRNA, LNP-S, PF, 30 mcg/0.3 mL dose 06/21/19 21 completed EKYLA CAMPOSOSTJet [place], [place] - Dr. Tomi Quezada 09/26/2022 14:36:31 COVID-19, mRNA, LNP-S, PF, 30 mcg/0.3 mL dose 07/20/19 21 completed KEYLA [place], [place] - Dr. oTmi Quezada 09/26/2022 14:36:35 Tdap 05/21/19 19 completed KEYLA [place], [place] - Dr. Tomi Quezada 09/26/2022 14:49:53 Influenza, MDCK, trivalent, preservative 01/24/20 24 cancelled patient objection Maritza Mcpherson, JEWELRY ENAMELER [address], [place], [address], [place] - Dr. Tomi Quezada 01/24/2024 17:42:28 Influenza, MDCK, trivalent, preservative 02/07/20 24 cancelled patient objection Maritza Mcpherson, JEWELRY ENAMELER [address], [place], [address], [place] - Dr. Tomi Quezada 02/08/2024 11:15:01 Influenza, MDCK, trivalent, preservative 03/21/20 24 cancelled patient objection CHASITY WEISS [address], [place], [address], [place] - Dr. Tmoi Quezada 03/21/2024 17:11:37 RSV, bivalent, protein subunit RSVpreF, diluent reconstituted, 0.5 mL, PF 03/03/[address] 04/03/2025 14:43:18 influenza nasal, unspecified formulation 06/06/19 completed DAVID Coreas - Dr. Tomi Quezada 04/03/2025 14:45:37 Influenza, MDCK, trivalent, PF 08/21/19 25 cancelled patient objection CHASITY WEISS [address], [place], [address], [facility] - Dr. Tomi Quezada 08/20/2024 10:44:31 Influenza, MDCK, trivalent, preservative 11/27/19 25 cancelled patient objection Carlin Patterson NP [address], [place], [address], [place] - Dr. Tomi Quezada 11/26/2024 17:55:55 COVID-19, mRNA, LNP-S, PF, aldo-sucrose, 30 mcg/0.3 mL 11/27/19 25 cancelled patient objection Carlin Patterson NP [address], [place], [address], [facility] - Dr. Tomi Quezada 11/26/2024 17:55:55 Past Encounters Encounter ID Performer Location Encounter Start Date Encounter Closed Date Diagnosis/Indication Diagnosis SNOMED-CT Code Diagnosis ICD10 Code Diagnosis IMO Codes Diagnosis Note [id number] Alexx Garcia MD [facility] [address] [place] [address], [facility] [address] [place] [address] 02/02/2025 13:34:49 02/02/2025 15:52:38 Screening mammography 70967936 Z12.31 has order from 01/30/2025 Screening for malignant neoplasm of colon 060855021 Z12.11 FIT 11/2024 - colonoscop y has order from 11/2024 Depression screening 171 031201 Z13.31 Immunization due 5461853 08 Z23 1139075 Counseling 619486696 Z71 .89 [id number] Patient was seen in dental clinic 02/02/2025 but left due to costs she was quoted for a visit. Patient was advised on the importance of having a dental assessment /procedure for what has been diagnosed in ER on 2x occasions as at tooth /gum infection- advised the imaging and labs will not change the need for a dental assessment and likely procedure- patient would like to go forward with blood work and imaging to be ordered on 02/02/2025 Renewal of prescription 943679923 Z76.0 Infection of tooth 62612 8007 K04.7 047396 Chronic pancreatitis 235 579824 K86.1 Low back pain 958678691 M54.50 patient requesting stronger medication s for her chronic pain- advised she needs to follow up with pain management nurse practitioner and have a dental assessment for mouth pain [id number] Alexx Garcia MD [facility] [address] [facility], [facility] [address] [facility] [place] [address] 03/04/2025 12:42:29 03/04/2025 14:40:23 [id number] Alexx Garcia MD [facility] [place] [place] [address] [place] [address], [address] [place] [address] 03/04/2025 15:28:27 03/04/2025 17:32:22 Screening mammography 86412800 Z12.31 12/19/2023 Screening for malignant neoplasm of colon 184952612 Z12.11 fecal 12/06/2024 Hepatitis C screening 41 2471375 Z11.59 Depression screening 171 765504 Z13.31 Immunization due 4383200 08 Z23 9353845 vaccines up to date Screening for malignant neoplasm of cervix 971162739 Z12.4 Counseling 932779970 Z71 .89 [id number] ER warnings given: patient to call 911 or go to nearest ER if severe chest pain, syncope, increased palpitatio ns, nausea, vomiting, LOC. Patinet verbalizes understand ing and agrees w plan.ER warnings given if abdominal pain, nausea, vomiting, fever, severe diarrhea, blood in stools, dark stools, blood in urine, syncope, chest pain, shortness of breath. Transition of care 31740 87622 105 Z75.8 03/02/2025 . scheduled f/u with GI on 03/16/2025 Body mass index 30+ - obesity 487024729 Z68.30 121771 30.8 Renewal of prescription 596540741 Z76.0 Infection of tooth 02627 8007 K04.7 838139 improved Low back pain 615107297 M54.50 patient requesting stronger medication s for her chronic pain- advised she needs to follow up with pain management nurse practitioner and have a dental assessment for mouth pain Chronic no nspecific abdominal pain 512674314 R10.9 scheduled f/u with GI on 03/16/2025 Essential hypertension 26816223 I10 pt will call cardiologi st to scheduled appt today Had extensive conversati on with pain about HTN and medication . Pt verbalized understand ing risk of uncontroll ed HTN. Pt agreed to contact cardiologi st to scheduled appt. Pt will be started on amlodipine and losartan. Nausea and vomiting 1693 1999 R11.2 9435604614 Patient no ncompliance - general 429727553 Z91.199 908832 ER warnings given: patient to call 911 or go to nearest ER if severe chest pain, syncope, increased palpitatio ns, nausea, vomiting, LOC. Patinet verbalizes understand ing and agrees w plan. Had extensive conversati on with pain about HTN and medication . Pt verbalized understand ing risk of uncontroll ed HTN. Pt agreed to contact cardiologi st to scheduled appt. Pt will be started on amlodipine and losartan. Health Concerns Section Related Observation LastModified by Organization Detai ls LastModified Time None Recorded Concern Status LastModified by Organization Details LastModified Time None Recorded Payers Encounter Date Sequence Insurance Name Policy Number Policy Lamar Covered Member ID Lamar Member ID Guarantor Name 03/04/2025 1 [employer] (O) [id number] Kasia Sunil [id number] Kasia Barber Notes Date Note Type Note Provider Name and Address Organization Details Recorded Time 5 text/htm l Transition Care ManagementReported by PatientHPIFor timing, patient reportsdate of discharge: (01/30/2025). For facility, patient reportsdischarged to: (home). For current caregivers, patient reportsself. For car-tesz-np-face services performed, patient reportsnot medically indicated. For functional status, patient reportsno difficulty following discharge instructions,taking medications as prescribed, andfollowing recommended activity level. For follow up, patient reportsprimary care provider, date: (02/02/2025).ROS as noted in the HPI VIRTUAL VISIT: This is telehealth visit using real-time audio/video communication. Patient's verbal consent has been obtained to conduct telemedicine visit.Patient is located at home. Provider is located at the office.Patient verbalizes awareness of the limitations of a telemedicine visit and agrees to an in-person follow-up if needed.Patient's consent in on file in the medical record. pt went [facility]/2025-02/27/1403/03/2025 abd painpt report symptoms are the same. history of type 2 diabetes mellitus, chronic pancreatitis, prior gastric sleeve, GI bleed, and recurrent ED visits for abdominal pain and vomiting (sometimes with hematemesis), presented with intractable epigastric pain and persistent nausea/vomiting. Vomitus was occasionally bilious and had a coffee-ground appearance. She has had multiple recent ED visits (02/06, 02/10, 02/15, 02/17) and a prior admission in November 2024 for similar symptoms. GI workup included a normal EGD (11/14/24), prior EGD (09/08/24) with small hiatal hernia and non-bleeding gastric ulcers (resolved with PPI therapy), and colonoscopy (11/14/24) showing hemorrhoids and diverticulosis; repeat colonoscopy recommended. Recent MRI showed no choledocholithiasis. Labs notable for Hgb 11.6 and normal LFTs. She is to continue Miralax 17g daily, with further constipation management to be discussed at her GI follow-up with Dr. Amos Martinez on 03/16/25. pt has not done ct for face, has healed, competed antibiotics, swelling has resolved, no pain present. ER follow up for tooth infection patient seen in ER and diagnosed with tooth/gum infection previouslypatient was seen by dentist 02/02/2025 but cannot afford the visit so patient left with no assessment or treatmentpatient states she cannot afford dental treatmentcould not get imaging performed [facility]- will send STAT order to [facility] 02/02/2025patient has had 3x ER visit in previous week 01/27/2025 - 02/01/2025 to 2 different ERs 2x [facility] and 1x [facility] and they told her she had a right tooth/gum infection and given a mouthwashpatient was prescribed amoxicillin/ clavulanate 01/27/2025still experiencing fevers intermittentstates does not have dental coveragereports not feeling better and feels that right side of face is swollen--around eye, cheeck and nose.Also, reports started with fever last night of 100.3, took ibuprofen and its 100.denies: acute vision changes, double vision,admits does have headache, no neck pain sinus infection historySinus pressure: States having nasal congestion, sinus pressure, associated to headache, postnasal drip Denies: fever, chest pain, shortness of breathhas been using flonase Abdominal pain historyPatient called for hospital f/u 09/07/2024-09/09/2024Dx: UGI bleed, went in for vomiting blood and abdominal painEGD: hiatal hernia, non bleeding Gastric ulcersCBC, CMP normal, lipaseno further hematemesis, denies black stoolsalways has abdominal painf/u/ gi 6 weeks, repeat egd 3 months right knee pain - unchangedhad ragini placed some years backtold in hospital to f/u with ortho due to mass developing around rodno knee imaging seen from hospitalrefer to ortho- has not scheduled yetintermittent right knee pain, no swelling, fevers, weight loss HypoglycemiaFBS- 76 - 03/04/2025reports has had intermittent feeling of low blood sugar--gets shaky and sweatsEats or drinks something sweet and symptoms improvewhile in the hospital was recommended to have glucometer to monitor symptoms HTNpt reports 03/03/2025- blood pressure 188/120 , pt report blood pressure is high with severe pain.Pt denies chest pain, palpitations, dyspnea. [employer] - has not seen him since May 2024 - pt will scheduled f/u appt.pt has not started amlodipine 5mg - will resend medication.Reports all her blood pressure medications were stopped [...] with cardiology for bp re-eval--still pending cardiology appointment--rescheduled Had extensive conversation with pain about HTN and medication. Pt verbalized understanding risk of uncontrolled HTN. Pt agreed to contact public relations senior associate to scheduled appt. Pt will be started on amlodipine and losartan. Pancreatitis history/chronic pancreatitisHospitalized at [facility] from [facility]06[facility]04[facility]24 (request record)Patient went back to [facility] 06/08/2024-06/15/2024 for pancreatitis pain again. Always has painpreviously Patient having a flare up from Chronic pancreatitis, pain meds not working (t3, buprenorphine patch, lyrica)unable to get meds from pain mgmt Dr Escalona out of office on Fridaysspoke to office staff and ok to send break through meds for few daysurged pt to make appt zoila on sunday; pain much improvedseen by pain management 4 days agof/u [facility]. Gamble 11/2024 Syncope history--has not recurredsuggested to see neurology from cardiology [...] new referral--will send again Went to cardiology previouslyplaced on heart monitor- Blood pressure remained elevated 150s over 100s- reports mild headache- last vist medications for BP reviewed-pt not taking Amlodipine 5mg tab, Losartan 100mg- started on metoprolol 25mgER- will increase metoprolol to 50mg ER-pt states she has not recieved any blood pressure medicaton. had cardiology appt 05/02/2024 Dr. Keyes EP; has appts [...] recent divorceno longer following [facility] Sr, at [facility] well and doesn't feel like needs medications at this timereports just having problems sleeping--would like something to help her sleep JESUS PIMENTEL JEWELRY ENAMELER [address], [place], [address], [place] - Dr. Tomi Quezada 03/04/2025 16:57:19 5 text/htm l not seen- had to reschedule Maritza Mcpherson NP [address], [place], [address], [place] - Dr. Tomi Quezada 03/04/2025 14:40:22 OBGyn Episode No OBEpisode recorded.
--- OUTSIDE RECORDS SUMMARY | 2025-04-21 18:53 | XMS_ITS | Data Portability ---
Author Organization [place] - Dr. Tomi Quezada, [facility] Address [address] [facility] Andrey GALINDO [address] [place] [address] Care Team Providers Care Manager Flight Name Role Phone [facility] Pain Management Assessment Encounter Date Assessment Date Assessment LastModified by Organization Details LastModified Time 01/30/2025 01/30/2025 Patient presented for medication refill. Patient tolerating medication well at current dose without adverse effects. Refilled as below. Discussed plan with patient, who expressed understanding . Follow up as noted below. [email or web address] Not available 01/30/2025 14:57:54 03/04/2025 03/04/2025 Patient presented to office today for a follow up visit for a previous emergency roon/ urgent care visit that occurred on 2024 Pt presented to the emergency room/urgent care for: Pt s condition is unchanged since discharge; patient denies any new problems since discharge. Medications were reviewed and any necessary updates and renewals were made. Discussed potential side effects of medications. Pt is non-compliant with medications. Counseling was done on care goals and ways to prevent future hospitalizati ons. Emphasized preventive health measures and educated pt to help reduce health risks and promote healthy living. Further treatment per orders below. [email or web address] Not available 03/04/2025 16:47:59 04/03/2025 04/03/2025 Patient presented for medication refill. Patient tolerating medication well at current dose without adverse effects. Refilled as below. Discussed plan with patient, who expressed understanding . Follow up as noted below. [email or web address] Not available 04/03/2025 17:26:16 Plan of Treatment Reminders Order Date Submit Date Provider Last Modified By Organization Details Last Modified Time Details Appointments None recorded. Lab fecal occult blood, immunoass ay, stool 2024 [place] [facility], [address], [place], [address], 04:19:14 CBC w/ auto diff 2024 [place] [facility], [address], [address], [place], [address], 5 04:17:24 Referral gastroent erologist referral 2024 [place] Not available 04:14:24 dentist referral 2024 [facility], [address] [place], [address], 04:10:04 Procedures None recorded. Surgeries None recorded. Imaging MAMMO, screening , bilateral 2024 [place] [facility], [address], [address], [place], [address], 5 04:02:40 CT, maxillofa cial, w/ contrast - stat 2024 025 [facility], [address] [place], [address], 5 04:17:25 CT, maxillofa cial, w/o contrast [email or web address] [facility], [address] [place], [address], 5 23:17:27 MAMMO, screening , bilateral 2024 025 [place] [facility], [address], [place], [address], 04:02:57 Medication Orders promethaz ine 25 mg tablet 2024 [id number], [address] [place], [address], 17:27:50 tizanidin e 4 mg tablet 2024 [id number], [address] [place], [address], 17:27:50 tizanidin e 2 mg tablet 2024 [facility][id number], [address] [place], [address], 17:27:50 scopolami ne 1 mg over 3 days transderm al patch 2024 [id number], [address] [place], [address], 17:27:50 promethaz ine 25 mg tablet 2024 [id number], [address] [place], [address], 17:10:00 amlodipin e 5 mg tablet 2024 [id number], [address] [place], [address], 16:57:37 losartan [address] [facility] #[id number], [address] [place], [address], 17:10:35 tizanidin e 4 mg tablet 2024 [facility], [address] [place], [address], 15:50:11 tizanidin e 2 mg tablet 2024 025 [id number], [address] [place], [address], 15:50:10 promethaz ine 25 mg tablet 2024 025 [id number], [address] [place], [address], 15:50:10 Patient TargetsNo targets recorded. Patient Instructions Encounter Date Encounter Id Patient Instructions Last Modified By Organization Details Last Modified Time 04/03/2025 individual counseling* [email or web address] Not available 04/03/2025 17:27:46 Reason for Referral Dentist Referral for Infecti on of tooth Referring Physician: [facility], Encounter Date: 01/30/2025 Linux Server Engineer Referral for Screening for malignant neoplasm of colon Referring Physician: [facility], Encounter Date: 03/04/2025 Results Created Date Observation Date Name Description Value Unit Range Abnormal Flag Note LastModifiedBy Organization Detail LastModifiedTime 04/03/2004/03/2025 indiv idual couns eling * patient counseled Not Available Primar y [address], [address], 04/02/2025 18:05:08 Result Notes None recorded. Problems Name Problem SNOMED Code Status Onset Date Resolution Date Notes Provider Name and Address Organization Details Recorded Time Acute pancreatitis [id number] DAVID Funez - Dr. Tomi Quezada 16:24:31 Restless legs syndrome 21685151 Active DAVID Solano - Dr. Tomi Quezada 16:24:31 Migraine 75860002 Active DAVID Solano - Dr. Tomi Quezada 5 16:24:31 Simple obesity 171045082 Active PARAS ROCHA null, [place] - Dr. Tomi Quezada 5 16:24:31 Chronic pancreatitis 653784604 Active 2022 LOURDES COLEMAN NP [address], [place], [address], [place] - Dr. Tomi Quezada 15:56:21 Mixed hyperlipidemia 073243103 Active 2022 JERROD ALMENDAREZ null, [place] - Dr. Tomi Quezada 16:50:12 Vitamin B12 deficiency (non anemic) 53038869 Active 2022 JERROD ALMENDAREZ null, [place] - Dr. Tomi Quezada 16:50:13 Conjunctivitis 3399716 Active 2022 Alexx Garcia MD [address], [place], [address], [place] - Dr. Tomi Quezada 13:12:09 Chronic nonspecific abdominal pain 382666520 Active 2022 LOURDES COLEMAN NP [address], [place], [address], [place] - Dr. Tomi Quezada 16:51:48 Opioid dependence 86813044 Active 2022 Tomi Quezada MD [address], [place], [address], [place] - Dr. Tomi Quezada 21:55:27 Benzodiazepine dependence 248611893 Active 2022 Tomi Quezada MD [address], [place], [address], [place] - Dr. Tomi Quezada 3 21:55:46 Low back pain 546471597 Active 2023 LOURDES COLEMAN NP [address], [place], [address], [place] - Dr. Tomi Quezada 5 15:56:21 Tachycardia 7104462 Active 2023 Maritza Mcpherson NP [address], [place], [address], [place] - Dr. Tomi Quezada 4 17:47:04 Seizure disorder 064801668 Active 2023 Maritza Mcpherson NP [address], [place], [address], [place] - Dr. Tomi Quezada 4 11:16:55 Headache 94916795 Active 2023 Maritza Mcpherson NP [address], [place], [address], [place] - Dr. Tomi Quezada 4 11:17:33 Essential hypertension 75631747 Active 2023 LOURDESDAVIDSON COLEMAN NP [address], [place], [address], [place] - Dr. Tomi Quezada 16:50:08 Tooth infection 896650164 Active 2024 LOURDES COLEMAN NP [address], [place], [address], [place] - Dr. Tomi Quezada 15:56:21 Nausea and vomiting, unspecified vomiting type 57764729 Active 2024 LOURDES COLEMAN NP [address], [place], [address], [place] - Dr. Tomi Quezada 16:41:02 Motion sickness 13302265 Active 2024 LOURDES COLEMAN PRODUCT [employer] MANAGER [address], [place], [address], [place] - Dr. Tomi Quezada 17:26:23 [...] Name and Address Organization Details Recorded Time 81826 iodine medicatio n Not available Not available Not available 04/02/2025 5933 RxNorm Not Available vesna - External Data Service - prod 5 19:27:15 43287 prednison e medicatio n Not available Not [...] Not available Not available Not available 08/20/2024 74262 RxNorm DAVID Martin - Dr. Tomi Quezada [...] 167.64 cm LUIS ANTONIO Quezada 01/30/2025 14:42:35 Date Recorded Body height Body mass index (BMI) Body weight Systolic And Diastolic Provider Name and Address Organization Details Last Updated DateTime 02/02/2025 165.1 cm 30.8 kg/m2 36449.59 g 235/160 mm[Hg] PARTH Quezada 02/02/2025 13:39:15 Date Recorded Body height Body mass index (BMI) Body weight Body height Body mass index (BMI) Body weight Provider Name and Address Organization Details Last Updated DateTime 03/04/2025 165.1 cm 30.8 kg/m2 04256.59 g 165.1 cm 30.8 kg/m2 98028.5 9 g BRIANA Quezada 15:33:53 Date Recorded Body height Provider Name an d Address Organization Details Last Updated DateTime 04/03/2025 165.1 cm TALITA Quezada 1 06/03/2024 14:41:44 Social History Question Answer Notes LastModified by Organizat ion Details LastModified Time Tobacco Smoking Status Never Smoker DAVID Joseph Dr. 09/26/2022 14:46:38 Do You Have An Advance Directive? No [email or web address] Information not available 09/26/2022 If You Are , What Was Your Level Of Alcohol Consumption Prior To ? None [email or web address] Information not available 09/26/2022 What Is Your Level Of Caffeine Consumption? Occasional [email or web address] Information not available 09/26/2022 What Type Of Diet Are You Following? REGULAR [email or web address] Information not available 09/26/2022 Do You Have A Medical Power Of Chemistry Lecturer? No [email or web address] Information not available 09/26/2022 How Many Children Do You Have? 1 [email or web address] Information not available 09/26/2022 Do You Have A Patient Advocate? No [email or web address] Information no t available 09/26/2022 What Is Your Relationship Status? Information not available 09/26/2022 Are You Sexually Active? No [email or web address] Information not available 09/26/2022 Do You Have Difficulty Walking Or Climbing Stairs? No Information not available 09/26/2022 Sex: Female Functional Status Question Answer Note LastModified by Organizat ion Details LastModified Time Do you use any illicit or recreational drugs? No Information not available 09/26/2022 Do you or have you ever used any other forms of tobacco or nicotine? No [email or web address] Information not available 09/26/2022 What is your level of alcohol consumption? None [email or web address] Information not available 09/26/2022 Are you currently employed? No [email or web address] Information not available 09/26/2022 What is your status? Not Information no t available 09/26/2022 Are you able to walk independently without assistance or assistive devices? [email or web address] Information not available 09/26/2022 Are you able to care for yourself independently? Yes [email or web address] Information not available 09/26/2022 What is your exercise level? Occasional [email or web address] Information not available 09/26/2022 Mental Status None recorded. Family History Relationship Description Onset Age of this Age Resolved Age Notes LastModified by Organization Details LastModified Time Paternal Grandfather Malignant neoplastic disease Not available 2022 14:46:24 Medical History Condition Response Coronary Artery Disease N Other N High Blood Pressure N Thyroid Disease N Hyperthyroidism N Emphysema N Ulcers/heartburn/reflux N Steroid Use N Glaucoma N Hypothyroidism N Pacemaker N Anxiety Disorder N Arthritis N Blood Disease N Cancer N Stroke N Hypoglycemia N Chest Pain or Angina N Shortness of breath N High Cholesterol Y Fibromyalgia N Dialysis N Kidney Disease N Heart Problems N STD N Fainting Spells/Dizziness/Vertigo N Falls N Herpes N Anemia N Angioplasty or heart catheter N Diabetes N Seizures/Epilepsy N Abnormal heart beat N Tuberculosis N Congestive Heart Failure (CHF) N Heart attack N Blocked Artery N Asthma N Epilepsy/Seizures N Diverticulitis or Colitis N Blood thinners N Damaged heart valve N Hepatitis N Heart Disease N Pulmonary Embolism N [...] 24 cancelled patient objection Alexx Garcia MD [address], [place], [address], [place] - Dr. Tomi Quezada 10/03/2023 18:30:12 Influenza, MDCK, quadrivalent, preservative 10/03/19 24 cancelled patient objection Alexx Garcia MD [address] [address], [place], [address], [place] - Dr. Tomi Quezada 10/03/2023 18:30:12 COVID-19, mRNA, LNP-S, PF, 30 mcg/0.3 mL dose 06/21/19 21 completed KEYLA TAPIA nelda [place] - Dr. Tomi Quezada 09/26/2022 14:36:31 COVID-19, mRNA, LNP-S, PF, 30 mcg/0.3 mL dose 07/20/19 21 completed KEYLA TAPIA [place] - Dr. Tomi Quezada 09/26/2022 14:36:35 Tdap 05/21/19 19 completed DAVID Joseph - Dr. Tomi Quezada 09/26/2022 14:49:53 Influenza, MDCK, trivalent, preservative 01/24/20 24 cancelled patient objection Maritza Mcpherson, PRODUCT LINE MANAGER [address], [place], [address], [place] - Dr. Tomi Quezada 01/24/2024 17:42:28 Influenza, MDCK, trivalent, preservative 02/07/20 24 cancelled patient objection Maritza Mcpherson, PRODUCT LINE MANAGER [address], [place], [address], [place] - Dr. Tomi Quezada 02/08/2024 11:15:01 Influenza, MDCK, trivalent, preservative 03/21/20 24 cancelled patient objection MADELEINE WEISS [address], [place], [address], [place] - Dr. Tomi Quezada 03/21/2024 17:11:37 RSV, bivalent, protein subunit RSVpreF, diluent reconstituted, 0.5 mL, PF 03/03/20 completed DAVID Coreas - Dr. Tomi Quezada 04/03/2025 14:43:18 influenza nasal, unspecified formulation 06/06/19 completed DAVID Coreas - Dr. Tomi Quezada 04/03/2025 14:45:37 Influenza, MDCK, trivalent, PF 08/21/19 cancelled patient objection MADELEINE WEISS [address], [place], [address], [place] - Dr. Tomi Quezada 08/20/2024 10:44:31 Influenza, MDCK, trivalent, preservative 11/27/19 25 cancelled patient objection Carlin Patterson PR[employer] MANAGER [address], [place], [address], [place] - Dr. Tomi Quezada 11/26/2024 17:55:55 COVID-19, mRNA, LNP-S, PF, aldo-sucrose, 30 mcg/0.3 mL 11/27/19 25 cancelled patient objection Carlin Patterson, PRODUCT LINE MANAGER [address], [place], [address], [place] - Dr. Tomi Quezada 11/26/2024 17:55:55 Past Encounters Encounter ID Performer Location Encounter Start Date Encounter Closed Date Diagnosis/Indication Diagnosis SNOMED-CT Code Diagnosis ICD10 Code Diagnosis IMO Codes Diagnosis Note [id number] Alexx Garcia MD [facility] [address], [facility] [address] [place] [address] 09/26/2022 13:49:10 09/26/2022 15:29:16 Body mass index 30+ - obesity 212768363 Z68.33 33.8 Adult [facility] th examination 201873762 Z00.01 Screening for cardiovascular system disease 899866277 Z13.6 Depression screening 171 941402 Z13.31 Hepatitis C screening 41 3291968 Z11.59 Active immunization 3387 9002 Z23 up to date Obesity 190303408 E66.09 Z71.3 Z71.82 Diet should be balanced including plenty of vegetables , proteins and healthy fats such as olive oil, avocado, nuts. Limit calories to the minimum from refined carbohydra jackie and eliminate processed foods. Exercise as tolerated, goal of total weekly 150min to include cardio-vas cular exercise and resistance -training exercise. Low back pain 999182069 M54.50 Chronic pancreatitis 235 511359 K86.1 follows pain management and GI Hyperlipid emia screening 521446741 Z13.220 Screening for disorder 808544754 Z13.29 Screening for endocrine disorder, including Hypothyroi dism. Vitamin D deficiency 347 75171 E55.9 Screening for Vitamin D deficiency ; optimal level 50 - 100. Vitamin B1 2 deficiency (non anemic) 33650179 E53.8 Screening for B12 deficiency ; optimal level > 500. [id number] Alexx Garcia MD [facility] [address], [address] [place] [address] 11/27/2022 13:22:20 11/27/2022 15:06:09 Depression screening 413437564 Z13.31 Hepatitis C screening 41 0528331 Z11.59 Body mass index 30+ - obesity 774032524 Z68.33 33.5 Chronic pancreatitis 235 420776 K86.1 Elevated blood-pressure reading without diagnosis of hypertension 469038441 R03.0 Blood pressure has been elevated in clinical setting. No history of HTN. Lifestyle measures recommende d, DASH diet, exercise program. Recommende d to monitor blood pressure outside the clinic x 2 week and inform us of the results. Nonpuerper al abscess of right breast [id number] 7198234 N61.1 will treat with abx and send for US Screening mammography of bilateral breasts 5810119290 41587 Z12.31 Low back pain 080878328 M54.50 insurance wont cover 6mg tablet of tizanidine , will send separate 4mg and 6 mg [id number] Tomi Quezada MD [facility] [address], [facility] [address] [place] [address] 01/19/2023 15:14:12 01/19/2023 17:16:54 Chronic pancreatitis 698708810 K86.1 refer to pain managment Influenza vaccination declined 970576259 Z28.21 Depression screening 171 776317 Z13.31 Vitamin D deficiency 347 57503 E55.9 Patient had low vitamin D levels.Cou nseled about mild sun exposure being aware of skin cancer risk.Recom mended resistance training exercises for osteoporos is prevention .Prescribe d vitamin D 3 50,000 units weekly.Roberto l monitor vitamin D levels at 6 - 12 months. Vitamin B1 2 deficiency (non anemic) 23904684 E53.8 Low vitamin B12,goal > 500Recomme nded b12 inj protocol of once per week # 4Will retest B12 level during annual exam Mixed hyperlipidemia 267 934243 E78.2 Lifestyle modificati ons discussed including weight loss, aerobic exercise at least 30 min/day at least 5 days per week, and a diet rich in fruit and vegetables . Goal LDL: <100mg/dL, <70mg/dL. Will continue to follow lipid panel q6-12 months. Low back pain 741774880 M54.50 [id number] Alexx Garcia MD [facility] [address], [facility] [address] [place] [address] 01/24/2023 12:16:48 01/24/2023 13:15:45 Chronic pancreatitis 754015162 K86.1 referred to pain management and GIGiven short term - 7 days of apap/codei ne;Patient verbalizes understand ing that she has to establish care with pain management and GI, since we do not do chronic pain.State s having issues with her insurance to find coverage. Depression screening 171 Z13.31 Conjunctivitis 9462201 H 10.9 [id number] Alexx Garcia MD [facility] [address], [address] [address] 02/01/2023 13:36:12 02/01/2023 16:17:58 Chronic pancreatitis 107964435 K86.1 eferred to pain management and GIGiven short term - 7 days of apap/codei ne;Patient verbalizes understand ing that she has to establish care with pain management and GI, since we do not do chronic pain.State s having issues with her insurance to find coverage.h as appt Yony w/Dr Martinez, will see if appt can be moved earlier Depression screening 171 Z13.31 Influenza vaccination declined 590292932 Z28.21 [id number] Alexx Garcia MD [facility] [address] [address] 02/19/2023 12:20:17 02/19/2023 13:59:52 Chronic pancreatitis 097961211 K86.1 referred to pain management and GIPatient verbalizes understand ing that she has to establish care with pain management and GI, since we do not do chronic pain.State s having issues with her insurance to find coverage. Has insurance approval with pain mgmt Dr Najera. Advised pt to call today to make appt.Gave ER warnings. Advised needs to go to ER if having pain 02/27. Influenza vaccination declined 378945682 Z28.21 Depression screening 171 Z13.31 Hepatitis C screening 41 9706433 Z11.59 [id number] Tomi Quezada MD [facility] [address], [address] [address] 02/20/2023 13:53:51 02/20/2023 15:07:59 Depression screening 193891870 Z13.31 Influenza vaccination declined 530047068 Z28.21 Chronic pancreatitis 235 657894 K86.1 pending to see pain specialist [place] refer to GI Seen in [facility] clinic 452572910 Z76.89 went to er visit [facility] 02/19/2023 discharged same day for chronic pancreatis pending to see pain specialist [place] [id number] Tomi Quezada MD [facility] [address], [address] [address] 02/26/2023 14:48:47 02/27/2023 12:31:37 Hospital inpatient stay within past 30 days 9152122767 106 Z76.89 Depression screening 171 965058 Z13.31 Influenza vaccination declined 395378039 Z28.21 Chronic no nspecific abdominal pain 161889828 R10.9 pt has been on chronic opiods without clear underlying cause of her paini reviewed the PMDR and she has been prescribed various opioids and benzos by various doctors.i will rx tramadol 30 oncept has been dismissed by other pain management specialtie s.suspect drug seeking behaviourw ill order MRI of abdomen and pelvispt will not get any more opioids from this practice until a definitive cause of her pain is identified . Opioid dependence 698288 00 F11.20 see above Benzodiaze pine dependence 566368225 F13.20 see above [id number] Alexx Garcia MD [facility] [address], [address] [address] 06/06/2023 15:26:57 06/06/2023 16:23:34 Influenza vaccination declined 709242769 Z28.21 Depression screening 171 720185 Z13.31 Hepatitis C screening 41 8473590 Z11.59 Diarrhea 13529032 R19.7 Advised patient to seek emergency treatment immediatel y if blood appears in diarrhea or emesis. Patient is to note any change in stooling patterns including persistent diarrhea, coffee ground stool or sign of blood in the toilet bowl. Advised patient to drink clear fluids only, particular ly Gatorade (1-2 oz at a time, taken every 10-15 min if able) and rest. May consider clear broth as tolerated. Also consider a BRAT diet: bananas, rice, applesauce , toast, in moderation . Symptoms lasting more than 24 hours may lead to dehydratio n; patient encouraged to seek emergency care or call the office immediatel y if this is the case. Acute gastroenteritis 69 881016 K52.9 ED warnings reviewed with patient [id number] Alexx Garcia MD [facility] [address] [address] 08/23/2023 13:17:41 08/23/2023 14:21:08 Depression screening 524389138 Z13.31 Influenza vaccination declined 629799562 Z28.21 Essential hypertension 42003382 I10 Adult heal th examination 976973906 Z00.01 Hyperlipid emia screening 162999926 Z13.220 Screening for cardiovascular system disease 873780289 Z13.6 Screening for disorder 943824924 Z13.9 Screening for endocrine disorder, including hypogonadi sm. Hepatitis C screening 41 2127650 Z11.59 Vitamin D deficiency 347 27006 E55.9 Screening for vit D deficiency , optimal level between 50 - 100 Vitamin B1 2 deficiency (non anemic) 22504529 E53.8 Screening for vit B12 deficiency ; optimal level > 500 Screening for malignant neoplasm of cervix 483702351 Z12.4 Chronic pancreatitis 235 483095 K86.1 Referred to pain management and GI Opioid dependence 835367 00 F11.20 follows pain management [id number] Alexx Garcia MD [facility] [address] [address] 10/03/2023 15:42:50 10/03/2023 18:34:27 Screening for malignant neoplasm of colon 943445282 Z12.11 Active or passive immunization 672698927 Z23 Depression screening 171 842451 Z13.31 Renewal of prescription 947602876 Z76.0 Opioid dependence 201525 00 F11.20 follows pain management Benzodiaze pine dependence 323501985 F13.20 Influenza vaccination declined 752614712 Z28.21 Body mass index 30+ - obesity 220355409 Z68.33 33.5 Mixed hyperlipidemia 267 299166 E78.2 Chronic pancreatitis 235 708062 K86.1 Referred to pain management and GI Chronic no nspecific abdominal pain 109573594 R10.9 Low back pain 125929973 M54.50 follows pain management , Dr Christy [id number] Alexx Garcia MD [facility] [address], [facility] [place] [address] 10/17/2023 14:43:36 10/17/2023 15:34:51 Body mass index 30+ - obesity 288506171 Z68.33 33.6 Screening for malignant neoplasm of colon 892509531 Z12.11 Mixed hyperlipidemia 267 597395 E78.2 emphaiszed low fat/high fiber diet and regular exercise routine. monitor lipids Vitamin B1 2 deficiency (non anemic) 43406237 E53.8 recommend otc vitamin b12 100mg once daily Vitamin D deficiency 347 62007 E55.9 refill vitamin d supplement Essential hypertension 84515868 I10 increase losartan 100mg once daily; emphasized low sodium diet and regular exercise routine Screening mammography 24 513539 Z12.31 [id number] Alexx Garcia MD [facility] [address] [address] 11/07/2023 14:21:18 11/07/2023 16:26:07 Mixed hyperlipidemia 435713881 E78.2 emphasized low fat/high fiber diet and regular exercise routine. monitor lipids Transition of care 61983 27089 105 Z75.8 see htn plan Obesity 113336364 E66.09 Z71.3 Z71.82 Diet should be balanced including plenty of vegetables , proteins and healthy fats such as olive oil, avocado, nuts. Limit calories to the minimum from refined carbohydra jackie and eliminate processed foods. Exercise as tolerated, goal of total weekly 150min to include cardio-vas cular exercise and resistance -training exercise. Body mass index 30+ - obesity 691108710 Z68.33 32.6 Depression screening 171 886810 Z13.31 Screening for malignant neoplasm of colon 460702030 Z12.11 Essential hypertension 71199805 I10 continue losartan. add amlodipine 5mg once daily. emphasized low sodium diet and regular exercise routine. f/u 2 weeks Vitamin D deficiency 347 23862 E55.9 continue vitamin d supplement Chronic pancreatitis 235 849179 K86.1 has appt with gi 11/2023 Vitamin B1 2 deficiency (non anemic) 00499215 E53.8 recommend otc vitamin b12 100mg once daily Lesion of oral mucosa 10 40998914 567158 K13.70 h/o oral thrush; treat empiricall y with nystatin [id number] Alexx Garcia MD PRIMARY [facility]ARE [address] [address] 01/01/2024 17:32:07 01/01/2024 18:59:38 Body mass index 30+ - obesity 764794593 Z68.32 32.6 Depression screening 171 653042 Z13.31 Screening for malignant neoplasm of colon 135405852 Z12.11 Allergy to food 61237680 1 T78.1XXA recommend to avoid seafoodsen d refill on epinephrin e for emergency usage Chronic pancreatitis 235 294691 K86.1 referred to pain management and GIPatient verbalizes understand ing that she has to establish care with pain management and GI, since we do not do chronic pain.State s having issues with her insurance to find coverage. Has insurance approval with pain mgmt Dr Najera. Advised pt to call today to make appt.Gave ER warnings. Advised needs to go to ER if having pain 02/27. [id number] Alexx Garcia MD PRIMARY [facility]ARE [address] [phone] 01/24/2024 12:55:13 01/24/2024 14:36:30 Essential hypertension 95479451 I10 also on Losartan 100mg Depression screening 171 Z13.31 Body mass index 30+ - obesity 802106074 Z68.32 Patient counseled about healthy diet, eating plan should include lots of vegetables , healthy fats including olive oil, avocado; avoiding refined sugars and processed foods/ trans fats. Transition of care 63446 30014 105 Z75.8 Obesity 900664748 E66.09 Z71.3 Z71.82 Diet should be balanced including plenty of vegetables , proteins and healthy fats such as olive oil, avocado, nuts. Limit calories to the minimum from refined carbohydra jackie and eliminate processed foods. Exercise as tolerated, goal of total weekly 150min to include cardio-vas cular exercise and resistance -training exercise. Renewal of prescription 271703232 Z76.0 Influenza vaccination declined 947490629 Z28.21 Screening for malignant neoplasm of colon 564124369 Z12.11 Tachycardia 3763403 R00. 0 Alarm ER warnings for increased hr, palpitatio ns, chest pain, or dizziness [id number] Alexx Garcia MD [facility]IMARY [facility] [address] [address] 01/31/2024 14:49:15 01/31/2024 15:25:06 Mixed hyperlipidemia 910317645 E78.2 discussed diet and lifestyle modificati ons; more fish, chicken fresh fruits and vegetables ; avoid high animal fat foods, processed foods and trnasfats; exercise daily; maintain healthy weight Depression screening 171 740171 Z13.31 Essential hypertension 53049595 I10 also on Losartan 100mg and amlodipine 5mg- ED warnings discussed if no improvemen t and worsening headache; saw cardiology and is wearing halter monitor [id number] Alexx Garcia MD [facility] [address] [address] 02/07/2024 14:39:55 02/07/2024 16:26:14 Renewal of prescription 566484188 Z76.0 Colonoscopy declined 628 5067377 05297 Z53.20 Influenza vaccination declined 163061241 Z28.21 Seizure disorder 3888550 02 G40.909 Low back pain 735373616 M54.50 Headache 72215206 R51.9 neurology referral given Essential hypertension 98423450 I10 also on Losartan 100mg and amlodipine 5mg, Metoprolol 50mg- now well controlled after increasing metoprolol to 50mg; ED warnings discussed if no improvemen t and worsening headache; saw cardiology and is wearing halter monitor [id number] Alexx Garcia MD [facility]IMARY [facility] [address] [address] 03/21/2024 16:39:36 03/21/2024 17:15:45 Influenza vaccination declined 400455016 Z28.21 Depression screening 171 621804 Z13.31 Body mass index 30+ - obesity 361724564 Z68.33 32.1 Acute conjunctivitis 537 45245 H10.31 start vigamox as directed. rtc if no improve, new or worsening symptoms [id number] Alexx Garcia MD [facility] [address] [address] 03/28/2024 14:50:31 03/28/2024 16:36:05 Screening mammography 55438925 Z12.31 DONE 12/19/2023 Screening for cardiovascular system disease 035282611 Z13.6 Screening for malignant neoplasm of colon 463646141 Z12.11 NEVER DONE Hepatitis C screening 41 6833772 Z11.59 Depression screening 171 601507 Z13.31 Screening for malignant neoplasm of cervix 074176705 Z12.4 05/21/2015 Body mass index 30+ - obesity 379315918 Z68.32 32.1 Abdominal pain 47146541 R10.9 Chronic pancreatitis 235 730655 K86.1 Following pain mgmt but having a flare up pain is 02/27will give short supply of hydrocodon e till sunday and needs to make appt ZOILA with pain specialist as today he is out of officepati ent had 4 narcan sprays gave ER warnings and when to use spray Essential hypertension 31220559 I10 BP Uncontroll ed, patient in pain which can affect bppt also instructed by cardiologi to take extra amlodipine for bp control [id number] Alexx Garcia MD [facility] [place] [facility] [employer] [facility], [facility] [address] [place] [address] 04/10/2024 16:14:50 04/10/2024 16:43:42 Screening mammography 16590355 Z12.31 12/19/2023 Hepatitis C screening 41 9826945 Z11.59 06/06/2023 Depression screening 171 165506 Z13.31 Active or passive immunization 884469989 Z23 Screening for malignant neoplasm of cervix 218388011 Z12.4 2015 Body mass index 30+ - obesity 842292764 Z68.33 32.1 Essential hypertension 71360416 I10 continue losartan. add amlodipine 5mg once daily and increase to twice daily. emphasized low sodium diet and regular exercise routine. f/u 5 days. ER warnings given--pat ient voiced understand ing Mixed hyperlipidemia 267 142938 E78.2 emphasized low fat/high fiber diet and regular exercise routine. monitor lipids Chronic pain 72727502 G8 9.29 improved pain; bp still elevated. following pain management [id number] Alexx Garcia MD [facility] [place] [facility] [employer] [facility], [facility] [place] [address] 04/25/2024 13:53:18 04/25/2024 14:28:59 Mixed hyperlipidemia 918761306 E78.2 emphasized low fat/high fiber diet and regular exercise routine. monitor lipids Screening mammography 24 485765 Z12.31 12/19/2023 Screening for malignant neoplasm of colon 923270323 Z12.11 Hepatitis C screening 41 4332080 Z11.59 06/06/2023 Depression screening 171 704214 Z13.31 Screening for malignant neoplasm of cervix 881303404 Z12.4 2016 Essential hypertension 60122902 I10 continue current medication s. add hctz 12.5mg once daily. continue home monitoring [id number] Alexx Garcia MD PRIMARY [facility]ARE [address], [address] [address] 05/08/2024 12:43:15 05/08/2024 13:11:09 Screening mammography 30398638 Z12.31 12/19/2023 Hepatitis C screening 41 1244374 Z11.59 06/06/2023 Depression screening 171 127588 Z13.31 Screening for malignant neoplasm of cervix 734986611 Z12.4 2016; total hysterecto my Renewal of prescription 322109812 Z76.0 refills sen Essential hypertension 75852437 I10 continue current medication s. add hctz 12.5mg once daily. restart clonidine 0.1mg once daily. following cardiology Chronic pancreatitis 235 996121 K86.1 has appt with gi 11/2023 Mixed hyperlipidemia 267 095357 E78.2 emphasized low fat/high fiber diet and regular exercise routine. monitor lipids Vitamin D deficiency 347 49589 E55.9 continue vitamin d supplement Syncope 495762958 R55 re-refer to neurology; following EP as well [id number] Alexx Garcia MD PRIMARY [facility] [address], [facility] [address] [place] [address] 06/04/2024 14:08:18 06/04/2024 15:46:41 Hospital inpatient stay within past 30 days 2134410388 106 Z76.89 see chronic pancreatit is plan Screening mammography 24 254155 Z12.31 12/19/2023 Hepatitis C screening 41 1917020 Z11.59 06/06/2023 Depression screening 171 087531 Z13.31 Screening for malignant neoplasm of cervix 508149330 Z12.4 2016; total hysterecto my Chronic pancreatitis 235 325901 K86.1 continue current pain control. f/u with pain specialist tomorrow. refer to GI. continue hospital discharge medication s given Essential hypertension 95173661 I10 will restart losartan. continue home monitoring of bp . low sodium diet emphasized . [id number] Alexx Garcia MD [facility]IMARY [facility] [address], [address] [address] 06/25/2024 15:49:32 06/25/2024 16:18:36 Chronic pancreatitis 174709611 K86.1 continue current pain control. f/u with pain specialist tomorrow. refer to GI. continue hospital discharge medication s given Hospital i npatient stay within past 30 days 8395032798 106 Z76.89 see chronic pancreatit is plan Screening mammography 24 462142 Z12.31 12/19/2023 Screening for malignant neoplasm of colon 453360077 Z12.11 Hepatitis C screening 41 2356961 Z11.59 06/06/2023 Depression screening 171 400343 Z13.31 Active or passive immunization 518712127 Z23 Screening for malignant neoplasm of cervix 896012501 Z12.4 2016; total hysterecto my [id number] Alexx Garcia MD PRIMARY [facility] [address], [facility] [place] [address] 07/09/2024 16:23:18 07/09/2024 17:04:39 Active or passive immunization 526935053 Z23 Essential hypertension 38158274 I10 refused to restart any medication s at this time or restart remote bp monitoring system. Will f/u with cardiology Body mass index 30+ - obesity 045119947 Z68.31 31.3 Chronic pancreatitis 235 142669 K86.1 continue current pain control. f/u with pain specialist tomorrow. pending appointmen t with dr gamble in gi . continue hospital discharge medication s given Mixed hyperlipidemia 267 093890 E78.2 emphasized low fat/high fiber diet and regular exercise routine. monitor lipids Vitamin D deficiency 347 31487 E55.9 continue vitamin d supplement [id number] Alexx Garcia MD [facility]IMARY [facility] [address] [address] 08/20/2024 10:01:37 08/20/2024 10:48:27 Screening mammography 90805491 Z12.31 12/19/2023 Screening for malignant neoplasm of cervix 898915341 Z12.4 2016; total hysterecto my Active or passive immunization 240271687 Z23 up to date Vaccine de clined by patient 2035499950 02 Z28.20 Depression screening 171 824320 Z13.31 negative Patient counseled 023186 003 Z71.9 Body mass index 30+ - obesity 819120574 Z68.31 31.3 Leukocytosis 834550221 D 72.829 recheck lab today Panniculitis 58043618 M7 9.3 chronic abdominal pain. see chronic pancreatit is plan Chronic pancreatitis 235 047436 K86.1 continue current pain control. f/u with pain specialist tomorrow. pending appointmen t with dr gamble in gi . continue hospital discharge medication s given Essential hypertension 78965329 I10 will start low dose amlodipine . Will f/u with cardiology . emphasized low sodium diet and regular exercise routine as able/brandy ated Mixed hyperlipidemia 267 484839 E78.2 emphasized low fat/high fiber diet and regular exercise routine. monitor lipids Insomnia 629276227 G47.0 0 start hydroxyzin e as directed. sleep hygiene reviewed with patient. [id number] Alexx Garcia MD [facility]IMARY [facility] [address] [address] 08/28/2024 16:52:28 08/28/2024 17:44:46 Depression screening 827002185 Z13.31 negative Screening for malignant neoplasm of cervix 103258026 Z12.4 2016; total hysterecto my Hypoglycemia 532471496 E 16.2 rx sent for glucometer + supplies [id number] Alexx Garcia MD [facility]IMARY [facility] [address] [address] 09/15/2024 13:28:51 09/15/2024 15:15:12 Hospital inpatient stay within past 30 days 3301725025 106 Z76.89 see gastric ulcer plan Patient counseled 446971 003 Z71.9 Upper gastrointestinal bleeding 66407568 K92.89 on ppi bid. no nsaids. bland diet recommende d. refer for GI f/u Gastric ulcer 608955288 K25.9 continue ppi. no nsaids. f/u with GI. ER warnings given--voi rj understand ing Pain of ri ght knee joint 8393463901 29554 M25.561 refer to ortho for f/u [id number] Tomi Quezada MD [facility] [place] [address] [place] [address], [facility] [address] [place] [address] 10/16/2024 13:24:25 10/16/2024 14:51:44 Screening mammography 54338496 Z12.31 DONE 12/19/2023 Screening for malignant neoplasm of colon 561490671 Z12.11 NEVER DONE Depression screening 171 077322 Z13.31 negative Active or passive immunization 240196738 Z23 tdap up to date Screening for malignant neoplasm of cervix 884929637 Z12.4 05/21/2015 Patient counseled 975174 003 Z71.9 Overweight in adulthood with body mass index of 25 or more but less than 30 960548811 Z68.29 720588 29.1 Gastroesop hageal reflux disease 157681060 K21.9 75273042 start on PPIhas appt in november with gastro will try to move up earlier Hypoglycemia 799619377 E 16.2 85906 will send continuous CGMpt has glucose tabs at home Low back pain 264233103 M54.50 insurance wont cover 6mg tablet of tizanidine , will send separate 4mg and 6 mg Nausea and vomiting 1692 1999 R11.2 124317 Patient was seen in the office today for nausea. Reviewed history regarding recent illness, medication s, symptoms, and physical exam. Studies ordered as below. Discussed plan with patient, who expresses understand ing. Follow up as noted below.on promethazi ne and scopalamin e Polypharmacy 612763721 Z 79.899 366600 multiple pain medsfollow s pain mgmthas been having nausea and vomiting [id number] Tomi Quezada MD [facility] [place] [address] [facility], [facility] [address] [place] [address] 11/26/2024 16:11:47 11/26/2024 17:57:02 Screening mammography 02492640 Z12.31 12/19/2023 Screening for malignant neoplasm of colon 203443149 Z12.11 NEVER DONE Hepatitis C screening 41 2193893 Z11.59 Depression screening 171 774870 Z13.31 Active or passive immunization 688624314 Z23 tdap up to date Screening for malignant neoplasm of cervix 369297148 Z12.4 05/21/2015 Patient counseled 879820 003 Z71.9 Renewal of prescription 903422266 Z76.0 promethazi ne, tazanidine , scopolamin e Hospital i npatient stay within past 30 days 0252160610 106 Z76.89 [facility] Overweight in adulthood with body mass index of 25 or more but less than 30 792839087 Z68.29 866198 29.5 Medication declined 4061 63788 Z28.21 3396228850 Chronic pancreatitis 235 702791 K86.1 Following pain mgmt but having a flare up pain is 10will give short supply of hydrocodon e till sunday and needs to make appt ZOILA with pain specialist as today he is out of officepati ent had 4 narcan sprays gave ER warnings and when to use spray Low back pain 464323763 M54.50 insurance wont cover 6mg tablet of tizanidine , will send separate 4mg and 6 mg Hypoglycemia 694408501 E 16.2 42457 will send continuous CGMpt has glucose tabs at home Screening for cardiovascular system disease 218410420 Z13.6 Z13.1 Hyperlipid emia screening 797480705 Z13.220 Fatigue 11670415 R53.83 2279721 Screening for endocrine disorder, including Hypothyroi dism. Vitamin D deficiency 347 97774 E55.9 Screening for Vitamin D deficiency ; optimal level 50 - 100. Vitamin B1 2 deficiency (non anemic) 80503386 E53.8 Screening for B12 deficiency ; optimal level > 500. Diabetes m ellitus screening 989951184 Z13.1 2199011 207386 Tomi Quezada MD PRIMARY [facility]ARE [facility] [address] [address] [facility], [address] [place] [address] 12/11/2024 14:54:26 12/11/2024 17:17:08 Screening mammography 68064578 Z12.31 12/19/2023 Screening for malignant neoplasm of colon 192830738 Z12.11 NEVER DONE Hepatitis C screening 41 9903894 Z11.59 Depression screening 171 029541 Z13.31 negative Active or passive immunization 797088555 Z23 tdap up to date Screening for malignant neoplasm of cervix 304185618 Z12.4 05/21/2015 Patient counseled 412296 003 Z71.9 Overweight in adulthood with body mass index of 25 or more but less than 30 523066155 Z68.29 441846 29.5 Transition of care 78273 83398 105 Z75.8 Gastroesop hageal reflux disease 285655185 K21.9 99004799 on PPI and carafate QID 1mghas appt in november with gastro will try to move up earlier Chronic pancreatitis 235 869279 K86.1 Following pain mgmt but having a flare up pain is 10/will give short supply of hydrocodon e till sunday and needs to make appt ZOILA with pain specialist as today he is out of officepati ent had 4 narcan sprays gave ER warnings and when to use spray Low back pain 563003853 M54.50 insurance wont cover 6mg tablet of tizanidine , will send separate 4mg and 6 mg Hematemesis 8423983 K92. 0 5323426577 [id number] Tomi Quezada MD PRIMARY CARE [address] [address] 01/27/2025 14:22:34 01/27/2025 15:43:11 Screening for malignant neoplasm of colon 380208185 Z12.11 12/06/2024 [facility]AL Depression screening 171 Z13.31 negative Immunization due 9559889 08 Z23 3368763 tdap, flu & covid UP TO DATE. Screening for malignant neoplasm of cervix 091214338 Z12.4 05/21/2015 Body mass index 30+ - obesity 127437923 Z68.30 185671 30.7 Bacterial sinusitis 7034 30083 J32.9 B96.89 3165641 will treat as belowconti nue with flonase [id number] Alexx Garcia MD PRIMARY [facility]ARE [address], [address] [address] 01/29/2025 10:53:44 01/29/2025 11:14:16 Screening mammography 39828729 Z12.31 12/19/2023 Depression screening 171 816856 Z13.31 negative Body mass index 30+ - obesity 308915985 Z68.30 329490 30.7 Acute maxi llary sinusitis 85108722 J01.00 61409539 refer to stat CT. If unable to have CT done today recommend patient go to ER or if new or worsening symptoms. continue augmentin [id number] Alexx Garcia MD [facility] [place] [address] [facility], [facility] [address] [place] [address] 01/30/2025 14:38:34 01/30/2025 15:05:49 Screening mammography 41561288 Z12.31 12/19/2023 Depression screening 171 785746 Z13.31 negative Infection of tooth 34450 8007 K04.7 250663 continue augmentin, refer to [facility]. send CT to other radiology clinictake tylenol/ib uprofen as directed for pain. ER warnings reiterated --voiced understand ing [id number] Alexx Garcia MD [facility] [place] [address] [facility], [facility] [place] [address] 02/02/2025 13:34:49 02/02/2025 15:52:38 Screening mammography 61568650 Z12.31 has order from 01/30/2025 Screening for malignant neoplasm of colon 779084728 Z12.11 FIT 11/2024 - colonoscop y has order from 11/2024 Depression screening 171 690104 Z13.31 Immunization due 9814329 08 Z23 8408367 Counseling 855323416 Z71 .89 11470324 Patient was seen in dental clinic 02/02/2025 [...] be ordered on 02/02/2025 Renewal of prescription 033856237 Z76.0 Infection of tooth 42371 8007 K04.7 138065 Chronic pancreatitis 235 416376 K86.1 Low back pain 156023901 M54.50 patient requesting stronger medication s for her chronic pain- advised she needs to follow up with rn pain management and have a dental assessment for mouth pain [id number] Alexx Garcia MD [facility] [place] [address] [facility], [facility] [address] [place] [address] 03/04/2025 12:42:29 03/04/2025 14:40:23 [id number] Alexx Garcia MD [facility] [place] [address] [place] [address], [address] [place] [address] 03/04/2025 15:28:27 03/04/2025 17:32:22 Screening mammography 29460142 Z12.31 12/19/2023 Screening for malignant neoplasm of colon 520304709 Z12.11 fecal 12/06/2024 Hepatitis C screening 41 3408243 Z11.59 Depression screening 171 904786 Z13.31 Immunization due 6550876 08 Z23 7077894 vaccines up to date Screening for malignant neoplasm of cervix 395485035 Z12.4 Counseling 776068487 Z71 .89 33641032 ER warnings given: patient to call 911 or go to nearest ER if severe chest pain, syncope, increased palpitatio ns, nausea, vomiting, LOC. Patinet verbalizes understand ing and agrees w plan.ER warnings given if abdominal pain, nausea, vomiting, fever, severe diarrhea, blood in stools, dark stools, blood in urine, syncope, chest pain, shortness of breath. Transition of care 33842 24855 105 Z75.8 03/02/2025 . scheduled f/u with GI on 03/16/2025 Body mass index 30+ - obesity 223820897 Z68.30 301376 30.8 Renewal of prescription 251527867 Z76.0 Infection of tooth 93417 8007 K04.7 787737 improved Low back pain 175174152 M54.50 patient requesting stronger medication s for her chronic pain- advised she needs to follow up with rn pain management and have a dental assessment for mouth pain Chronic no nspecific abdominal pain 561632563 R10.9 scheduled f/u with GI on 03/16/2025 Essential hypertension 36741723 I10 pt will call cardiologi st to scheduled appt today Had extensive conversati on with pain about HTN and medication . Pt verbalized understand ing risk of uncontroll ed HTN. Pt agreed to contact cardiologi st to scheduled appt. Pt will be started on amlodipine and losartan. Nausea and vomiting 1692 1999 R11.2 9645736387 Patient no ncompliance - general 238943210 Z91.199 094207 ER warnings given: patient to call 911 [...] will be started on amlodipine and losartan. [id number] Alexx Garcia MD PRIMARY [facility]ARE [address] [address] 04/03/2025 14:33:08 04/03/2025 17:42:55 Screening mammography 85646563 Z12.31 12/19/2023 order given 03/04/2025 Screening for malignant neoplasm of colon 213679963 Z12.11 fecal 12/06/2024 Hepatitis C screening 41 0705490 Z11.59 11/26/2024 Depression screening 171 327981 Z13.31 Immunization due 8683891 08 Z23 1358528 vaccines up to date Screening for malignant neoplasm of cervix 953829634 Z12.4 Counseling 341124151 Z71 .89 85998233 ER warnings given: patient to call 911 or go to nearest ER if severe chest pain, syncope, increased palpitatio ns, nausea, vomiting, LOC. Patinet verbalizes understand ing and agrees w plan.ER warnings given if abdominal pain, nausea, vomiting, fever, severe diarrhea, blood in stools, dark stools, blood in urine, syncope, chest pain, shortness of breath. Renewal of prescription 265975182 Z76.0 promethazi ne 25mgtizani dine 2 and 4 mgscopolam ine 1mg over 3 days transderma l patches Nausea and vomiting 1692 1999 R11.2 Low back pain 065712640 M54.50 patient requesting stronger medication s for her chronic pain- advised she needs to follow up with rn pain management and have a dental assessment for mouth pain Motion sickness 27908341 T75.3XXA Essential hypertension 15568847 I10 pt will call cardiologi st to scheduled - not scheduled yet Had extensive conversati on with pain about HTN and medication . Pt verbalized understand ing risk of uncontroll ed HTN. Pt agreed to contact cardiologi st to scheduled appt. Pt will be started on amlodipine and losartan. ER warnings given: patient to call 911 or go to nearest ER if severe chest pain, syncope, increased palpitatio ns, nausea, vomiting, LOC. Patinet verbalizes understand ing and agrees w plan. Health Concerns Section Related Observation LastModified by Organization Detai ls LastModified Time None Recorded Concern Status LastModified by Organization Details LastModified Time None Recorded Advance Directives Directive N: Payers Insurance Date Sequence Insurance Name Policy Number Policy Lamar Covered Member ID Lamar Member ID Guarantor Name 04/10/2024 1 [id number] [id number] Kasia Barber [id number] Kasia Barber 04/21/2025 1 [employer] (O) [id number] Kasia Barber [id number] Kasia Barber 04/10/2024 1 [employer] (O) [id number] Kasia Boatenger [id number] Kasia Barber Notes Date Note Type Note Provider Name and Address Organization Details Recorded Time 5 text/htm l Transition Care ManagementReported by Patient VIRTUAL VISIT: [...] symptoms Patient in for hospital f/u from [facility]--was in the ER (not admitted) Dx; Panniculitus Rx: unchanged, no new medications Current pain unchanged; reports always in pain due to chronic pancreatitisfollowing pain managementf/u with GI at [facility] Dr. Gamble 11/2024denies chest pain, sob, fevers, chills, vomiting or diarrhea+nausea, abdominal pain Hospitalized at [facility] from 05/24/2024-06/04/2024 (request record)Patient went back to [facility] 06/08/2024-06/15/2024 for pancreatitis pain again. Always [...] with cardiology for bp re-eval--still pending cardiology appointment--rescheduledwill start amlodipine 5mg half tab daily previously [...] recent [facility] and doesn't feel like needs medications at this timereports just having problems sleeping--would like something to help her sleep MADELEINE WEISS [address], [place], [address], [place] - Dr. Tomi Quezada 01/30/2025 15:04:04 5 text/htm l Transition Care ManagementReported by PatientHPIFor timing, patient reportsdate of discharge: (01/30/2025). For facility, patient reportsdischarged to: (home). For current caregivers, patient reportsself. For ljm-yjwk-rs-face services performed, patient reportsnot medically indicated. For functional status, patient reportsno difficulty following discharge instructions,taking medications as prescribed, andfollowing recommended activity level. For follow up, patient reportsprimary care provider, date: (02/02/2025). VIRTUAL VISIT: This is telehealth visit using real-time audio/video communication. Patient's verbal consent has been obtained to conduct telemedicine visit.Patient is located at home. Provider is located at the office.Patient verbalizes awareness of the limitations of a telemedicine visit and agrees to an in-person follow-up if neededPatient's consent in on file in the medical record. ER follow up for tooth infectionpatient seen in ER and diagnosed with tooth/gum infection previouslypatient was seen by dentist 02/02/2025 but cannot afford the visit so patient left with no assessment or treatmentpatient states she cannot afford dental treatmentcould not get imaging performed at [facility] or professional radiology- will send STAT order [...] knee pain, no swelling, fevers, weight loss Hypoglycemiareports has had intermittent feeling of low blood sugar--gets shaky and sweatsEats or drinks something sweet and symptoms improvewhile in the hospital was recommended to have glucometer to monitor symptoms HTNReports all her blood pressure medications were [...] with cardiology for bp re-eval--still pending cardiology appointment--rescheduledwill start amlodipine 5mg half tab daily Pancreatitis history/chronic pancreatitisH[facility]request record)Patient went back to [facility] 06/08/2024-06/15/2024 for pancreatitis pain again. Always [...] management 4 days agof/u with GI at [facility] Dr. Gamble 11/2024 Syncope history--has not recurredsuggested [...] appointment Chronic back pain follows pain managementDr Nicoianon tizanadine 6m, takes between 1 - to -4 times dailydenies illicit drug use vitamin dtaking supplementrecheck lab mixed dldnot taking medication. MDD/GADdiagnosed in her 20striggers: recent [facility]ceno [facility] and doesn't feel like needs medications at this timereports just having problems sleeping--would like something to help her sleep JULIA MCDERMOTT [address], [place], [address], [place] - Dr. Tomi Quezada 02/02/2025 15:50:06 5 text/htm l Transition Care ManagementReported by PatientHPIFor timing, patient reportsdate of discharge: (01/30/2025). For facility, patient reportsdischarged to: (home). For current caregivers, patient reportsself. For jbq-glgb-xy-face services performed, patient reportsnot medically indicated. For [...] in the medical record. pt went to [place] on 02/[place]/2025-02/27/1403/03/2025 abd painpt report symptoms are [...] dental treatmentcould not get imaging performed at [facility] or [facility]- will send STAT order [...] severe pain.Pt denies chest pain, palpitations, dyspnea. 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 Pt agreed to contact weapons engineer to scheduled appt. Pt will be started on amlodipine and losartan. Pancreatitis history/chronic pancreatitisHospitalized at [facility]24 (request record)Patient went back to [facility] 06/08/2024-06/15/2024 for pancreatitis pain again. Always [...] management 4 days agof/u with GI at [facility] Dr. Gamble 11/2024 Syncope history--has not recurredsuggested [...] recent divorceno longer following Dr Sr, at [facility] well and doesn't feel like needs medications at this timereports just having problems sleeping--would like something to help her sleep LOURDES COLEMAN NP [facility] [address], [place], [address], [place] - Dr. Tomi Quezada 03/04/2025 16:57:19 5 text/htm l not seen- had to reschedule Maritza Mcpherson NP [address], [place], [address], [place] - Dr. Tomi Quezada 03/04/2025 14:40:22 5 text/htm l ROS as noted in the HPI VIRTUAL VISIT: This is telehealth visit using real-time audio/video communication. Patient's verbal consent has been obtained to conduct telemedicine visit.Patient is located at home. Provider is located at the office.Patient verbalizes awareness of the limitations of a telemedicine visit and agrees to an in-person follow-up if needed.Patient's consent in on file in the medical record. mammo not scheduled,no gastro appt made.patient needing promethazine 25mg - for pancreatis itis and auto immune diseasetizanidine 2 and 4 mg, - back painscopolamine 1mg over 3 days transdermal patches - for nausea --pt reports no changes since last visit pt went to [place] on 02/28/2025-02/27/1403/03/2025 abd pain - no changes history of type 2 diabetes mellitus, chronic [...] dental treatmentcould not get imaging performed at [facility] imaging or professional radiology- will send STAT order to [facility] 02/02/2025patient has had 3x ER visit [...] severe pain.Pt denies chest pain, palpitations, dyspnea. 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 Pt agreed to contact weapons engineer to scheduled appt. Pt will be started on amlodipine and losartan. Pancreatitis history/chronic pancreatitisHospitalized at [facility]24 (request record)Patient went back to [facility] 06/08/2024-06/15/2024 for pancreatitis pain again. Always [...] management 4 days agof/u with GI at [facility] Dr. Gamble 11/2024 Syncope history--has not recurredsuggested [...] sleeping--would like something to help her sleep LOURDES COLEMAN PRODUCT LINE MANAGER [address], [place], [address], [place] - Dr. Tomi Quezada 04/03/2025 17:28:12 OBGyn Episode No OBEpisode recorded.
--- OUTSIDE RECORDS SUMMARY | 2025-04-21 18:53 | XMS_ITS | Clinical Summary ---
Author Organization Healthcare Address [address] [id number] Care Team Providers Care Docket Clerk Name Role Phone Rae Frey APRN Primary Care Provider + [phone] Family History Medical History Relation Name Comments Arthritis Mother Conversions - Other Mother Gallblad alena cholesterolosis Hypertension Mother Lung cancer Mother Migraines Mother Lung cancer Other 1 Conversions - Other Other 2 Gallblad alena cholesterolosis Relation Name Status Comments Mother Other 1 Other 2 Social History Tobacco Use Types Packs/Day Years Used Date Smoking Tobacco: Never Alcohol Use Standard Drinks/Week Comments No 0 (1 standard drink = 0.6 oz pur e alcohol) Comments Unknown Sex and Gender Information Value Date Recorded Sex Assigned at Not on file Legal Sex Female 8:07 PM EDT Gender Identity Not on file Sexual Orientation Not on file Last Filed Vital Signs Vital Sign Reading Time Taken Comments Blood Pressure 135/95 03/05/2020 9:35 AM EDT Pulse 101 03/05/2020 9:35 AM EDT Temperature 36.4 C (97.6 F) 03/05/2020 9:35 AM EDT Respiratory Rate - - Oxygen Saturation - - Inhaled Oxygen Concentration - - Weight 89.8 kg (197 lb 15.6 oz) 03/05/2020 9:35 AM EDT Height 167.6 cm (5' 6 ) 03/05/2020 9:35 AM EDT Body Mass Index 31.95 03/05/2020 9:35 AM EDT Plan of Treatment Not on file Care Teams Docket Clerk Relationship Specialty Start Date End Date Rae Frey APRN [address], [place] [id number] PCP - General 10/01/20
--- OUTSIDE RECORDS SUMMARY | 2025-04-21 18:53 | XMS_ITS | Continuity of Care Document ---
Author Organization [place] - Dr. Tomi Quezada, [facility] Address [address] [address] Care Team Providers Care Window Assembler Name Role Phone [facility] Pain Management Assessment Encounter Date Assessment Date Assessment LastModified by Organization Details LastModified Time 03/04/2025 03/04/2025 Patient presented to office today [...] healthy living. Further treatment per orders below. [email or web address] Not available 03/04/2025 16:47:59 Plan of Treatment Reminders Order Date Submit Date Provider Last Modified By Organization Details Last Modified Time Details Appointments None recorded. Lab fecal occult blood, immunoass ay, stool 2024 025 ANTHONY [facility], [address], [address], [place], [address], 5 04:19:14 Referral gastroent erologist referral 2024 025 ANTHONY Not available 04:14:24 Procedures None recorded. Surgeries None recorded. Imaging MAMMO, screening , bilateral 2024 025 ANTHONY [facility], [address], [address], [place], [address], 04:02:40 Medication Orders promethaz ine 25 mg tablet 2024 [facility] #[id number], [address] [place], [address], 17:10:00 amlodipin e 5 mg tablet 2024 [facility] #[id number], [address] [place], [address], 16:57:37 losartan 100 mg tablet 2024 [facility] #[id number], [address] [place], [address], 17:10:35 Patient TargetsNo targets recorded. Patient InstructionsNo instructions recorded. Reason for Referral Implementation Analyst Referral for Screening for malignant neoplasm of colon Referring Physician: Lourdes Coleman, Family Medicine, Encounter Date: 03/04/2025 Results Created Date Observation Date Name Description Value Unit Range Abnormal Flag Note LastModifiedBy Organization Detail LastModifiedTime Result Notes None recorded. Problems Name Problem SNOMED Code Status Onset Date Resolution Date Notes Provider Name and Address Organization Details Recorded Time Acute pancreatitis 646491098 Active DAVID Solano - Dr. Tomi Quezada 16:24:31 Restless legs syndrome 60404002 Active DAVID Solano - Dr. Tomi Quezada 16:24:31 Migraine 70292602 Active DAVID Solano Dr. 16:24:31 Simple obesity 731274103 Active DAVID Solano Dr. 16:24:31 Chronic pancreatitis 356815579 Active 2022 LOURDES COLEMAN POLICE CHIEF [address], [place], [address], [place] - Dr. Tomi Quezada 5 15:56:21 Mixed hyperlipidemia 267230697 Active 2022 JERROD lutz, [place] - Dr. Tomi Quezada 3 16:50:12 Vitamin B12 deficiency (non anemic) 79148391 Active 2022 JERROD lutz, [place] - Dr. Tomi Quezada 3 16:50:13 Conjunctivitis 5357724 Active 2022 Alexx Garcia MD [address], [place], [address], [place] - Dr. Tomi Quezada 3 13:12:09 Chronic nonspecific abdominal pain 891353685 Active 2022 LOURDES COLEMAN NP [address], [place], [address], [place] - Dr. Tomi Quezada 5 16:51:48 Opioid dependence 03155952 Active 2022 Tomi Quezada MD [address], [place], [address], [place] - Dr. Tomi Quezada 3 21:55:27 Benzodiazepine dependence 397023045 Active 2022 Tomi Quezada MD [address], [place], [address], [place] - Dr. Tomi Quezada 3 21:55:46 Low back pain 272437915 Active 2023 LOURDES COLEMAN NP [address], [place], [address], [place] - Dr. Tomi Quezada 5 15:56:21 Tachycardia 0741778 Active 2023 Maritza Mcpherson NP [address], [place], [address], [place] - Dr. Tomi Quezada 4 17:47:04 Seizure disorder 832050696 Active 2023 Maritza Mcpherson NP [address], [place], [address], [place] - Dr. Tomi Quezada 4 11:16:55 Headache 27433547 Active 2023 Maritza Mcpherson, POLICE CHIEF [address], [place], [address], [place] - Dr. Tomi Quezada 4 11:17:33 Essential hypertension 42503351 Active 2023 LOURDESDAVIDSON COLEMAN POLICE CHIEF [address], [place], [address], [place] - Dr. Tomi Quezada 16:50:08 Tooth infection 996756034 Active 2024 LOURDES COLEMAN NP [address], [place], [address], [place] - Dr. Tomi Quezada 15:56:21 Nausea and vomiting, unspecified vomiting type 87977627 Active 2024 LOURDES COLEMAN NP [address], [place], [address], [place] - Dr. Tomi Quezada 16:41:02 Motion sickness 04546553 Active 2024 LOURDES COLEMAN NP [address], [place], [address], [place] - Dr. Tomi Quezada [...] 16:45:16 024 Hospital follow up completed RAYNA MCKEON [place] - Dr. Tomi Quezada 11/07/2023 14:38:25 023 Hospital follow up completed Lor Tsai [place] - Dr. Tomi Quezada 02/26/2023 14:59:24 023 [...] Name and Address Organization Details Recorded Time 00376 iodine medicatio n Not available Not available Not available 04/02/2025 5933 RxNorm Not Available [employer] - prod 19:27:15 99754 prednison e medicatio n Not available Not available Not available 04/02/2025 8640 RxNorm Not Available [employer] - prod 19:27:15 6339 shellfish derived food,medi cation Not available Not available Not available 09/26/[address] 3 14:35:17 8619 loperamid e medicatio n Not available Not available Not available 06/25/2024 6468 RxNorm Other react ions and sever ities : 'Weal (diso rder) '. DAVID Martin Dr. 5 10:07:15 8899 ketorolac medicatio n Not available Not available Not available 08/20/2024 [address] 5 10:07:15 Medications [...] Updated DateTime 03/04/2025 165.1 cm 30.8 kg/m2 86351.59 g 165.1 cm 30.8 kg/m2 31828.5 9 g BRIANA HERNANDEZ - Dr. Tomi Quezada 15:33:53 Social History Question Answer Notes LastModified by Kibin Details LastModified Time Tobacco Smoking Status Never Smoker DAVID Joseph - Dr. Tomi Quezada 09/26/2022 14:46:38 Do You Have An Advance Directive? No [email or web address] Information not available 09/26/2022 If You Are , What Was Your Level Of Alcohol Consumption Prior To ? None [email or web address] Information not available 09/26/2022 What Is Your Level Of Caffeine Consumption? Occasional [email or web address] Information not available 09/26/2022 What Type Of Diet Are You Following? REGULAR [email or web address] Information not available 09/26/2022 Do You Have A Medical Power Of Pen And Pencil Repairer? No [email or web address] Information not available 09/26/2022 How Many Children Do You Have? 1 [email or web address] Information not available 09/26/2022 Do You Have A Patient Advocate? No [email or web address] Information no t available 09/26/2022 What Is Your Relationship Status? [email or web address] Information not available 09/26/2022 Are You Sexually Active? No [email or web address] Information not available 09/26/2022 Do You Have Difficulty Walking Or Climbing Stairs? No Information not available 09/26/2022 Sex: Female Functional Status Question Answer Note LastModified by Kibin Details LastModified Time Do you use any illicit or recreational drugs? No [email or web address] Information not available 09/26/2022 Do you or have you ever used any other forms of tobacco or nicotine? No [email or web address] Information not available 09/26/2022 What is your level of alcohol consumption? None [email or web address] Information not available 09/26/2022 Are you currently employed? No [email or web address] Information not available 09/26/2022 What is your status? Not Information no t available 09/26/2022 Are you able to walk independently without assistance or assistive devices? YESWOREST [email or web address] Information not available 09/26/2022 Are you able to care for yourself independently? Yes [email or web address] Information not available 09/26/2022 What is your exercise level? Occasional [email or web address] Information not available 09/26/2022 Mental Status None recorded. Family History Relationship Description Onset Age of this Age Resolved Age Notes LastModified by Organization Details LastModified Time Paternal Grandfather Malignant neoplastic disease [email or web address] Not available 2022 14:46:24 Medical History Condition [...] LNP-S, PF, 30 mcg/0.3 mL dose, aldo-sucrose 05/15/20 24 cancelled patient objection Alexx Garcia MD [address], [place], [address], [place] - Dr. Tomi Quezada 10/03/2023 18:30:12 Influenza, MDCK, quadrivalent, preservative 10/03/19 24 cancelled patient objection Alexx Garcia MD [address], [place], [address], [place] - Dr. Tomi Quezada 10/03/2023 18:30:12 COVID-19, mRNA, LNP-S, PF, 30 mcg/0.3 mL dose 06/21/19 21 completed KEYLA TAPIA null, [place] - Dr. Tomi Quezada 09/26/2022 14:36:31 COVID-19, mRNA, LNP-S, PF, 30 mcg/0.3 mL dose 07/20/19 21 completed KEYLA [place]utz, [place] - Dr. Tomi Quezada 09/26/2022 14:36:35 Tdap 05/21/19 19 completed KEYLA [place]utz, [place] - Dr. Tomi Quezada 09/26/2022 14:49:53 Influenza, MDCK, trivalent, preservative 01/24/20 24 cancelled patient objection Maritza Mcpherson NP [address], [place], [address], [place] - Dr. Tomi Quezada 01/24/2024 17:42:28 Influenza, MDCK, trivalent, preservative 02/07/20 24 cancelled patient objection Maritza Mcpherson NP [address], [place], [address], [place] - Dr. Tomi Quezada 02/08/2024 11:15:01 Influenza, MDCK, trivalent, preservative 03/21/20 24 cancelled patient objection CHASITY WEISS [address], [place], [address], [place] - Dr. Tomi Quezada 03/21/2024 17:11:37 RSV, bivalent, protein subunit RSVpreF, diluent reconstituted, 0.5 mL, PF 03/03/20 25 completed DAVID Coreas - Dr. Tomi Quezada 04/03/2025 14:43:18 influenza nasal, unspecified formulation 06/06/19 25 completed TALITA lutz [place] - Dr. Tomi Quezada 04/03/2025 14:45:37 Influenza, MDCK, trivalent, PF 08/21/19 cancelled patient objection CHASITY WEISS [address], [place], [address], [place] - Dr. Tomi Quezada 08/20/2024 10:44:31 Influenza, MDCK, trivalent, preservative 11/27/19 cancelled patient objection Carlin Patterson NP [address], [place], [address], [place] - Dr. Tomi Quezada 11/26/2024 17:55:55 COVID-19, mRNA, LNP-S, PF, aldo-sucrose, 30 mcg/0.3 mL 11/27/19 cancelled patient objection Carlin Patterson NP [address], [place], [address], [facility] - Dr. Tomi Quezada 11/26/2024 17:55:55 Past Encounters Encounter ID Performer Location Encounter Start Date Encounter Closed Date Diagnosis/Indication Diagnosis SNOMED-CT Code Diagnosis ICD10 Code Diagnosis IMO Codes Diagnosis Note [id number] Alexx Garcia MD [facility] [address] [place] [address], [facility] [address] [place] [address] 02/02/2025 13:34:49 02/02/2025 15:52:38 Screening mammography 60537829 Z12.31 has order from 01/30/2025 Screening for malignant neoplasm of colon 794235407 Z12.11 FIT 11/2024 - colonoscop y has order from 11/2024 Depression screening 171 254596 Z13.31 Immunization due 6754538 08 Z23 9565144 Counseling 940140334 Z71 .89 48902450 Patient was seen in dental clinic 02/02/2025 [...] be ordered on 02/02/2025 Renewal of prescription 739714228 Z76.0 Infection of tooth 51277 8007 K04.7 040066 Chronic pancreatitis 235 096261 K86.1 Low back pain 906585186 M54.50 patient requesting stronger medication s for her chronic pain- advised she needs to follow up with sign painter helper and have a dental assessment for mouth pain [id number] Alexx Garcia MD [facility] [address] [facility], [facility] [address] [place] [address] 03/04/2025 12:42:29 03/04/2025 14:40:23 [id number] Alexx Garcia MD [facility] [address], [facility] [address] [place] [address] 03/04/2025 15:28:27 03/04/2025 17:32:22 Screening mammography 92927694 Z12.31 12/19/2023 Screening for malignant neoplasm of colon 894653636 Z12.11 fecal 12/06/2024 Hepatitis C screening 41 5407891 Z11.59 Depression screening 171 533390 Z13.31 Immunization due 5603816 08 Z23 2005652 vaccines up to date Screening for malignant neoplasm of cervix 266042474 Z12.4 Counseling 076368700 Z71 .89 [id number] ER warnings given: patient to call 911 or go to nearest ER if severe chest pain, syncope, increased palpitatio ns, nausea, vomiting, LOC. Patinet verbalizes understand ing and agrees w plan.ER warnings given if abdominal pain, nausea, vomiting, fever, severe diarrhea, blood in stools, dark stools, blood in urine, syncope, chest pain, shortness of breath. Transition of care 64460 18050 105 Z75.8 03/02/2025 . scheduled f/u with GI on 03/16/2025 Body mass index 30+ - obesity 613668248 Z68.30 314014 30.8 Renewal of prescription 793401967 Z76.0 Infection of tooth 39595 8007 K04.7 692256 improved Low back pain 109925034 M54.50 patient requesting stronger medication s for her chronic pain- advised she needs to follow up with sign painter helper and have a dental assessment for mouth pain Chronic no nspecific abdominal pain 334472025 R10.9 scheduled f/u with GI on 03/16/2025 Essential hypertension 92698561 I10 pt will call cardiologi st to scheduled appt today Had extensive conversati on with pain about HTN and medication . Pt verbalized understand ing risk of uncontroll ed HTN. Pt agreed to contact cardiologi st to scheduled appt. Pt will be started on amlodipine and losartan. Nausea and vomiting 1692 1999 R11.2 3673253044 Patient no ncompliance - general 719444685 Z91.199 [id number] ER warnings given: patient to call 911 [...] ID Guarantor Name 03/04/2025 1 [employer] (O) [id number] Kasia Barber [id number] Kasia Sunil Notes Date Note Type Note Provider Name and Address Organization Details Recorded Time 5 text/htm l Transition Care ManagementReported by PatientHPIFor timing, patient reportsdate of discharge: (01/30/2025). For facility, patient reportsdischarged to: (home). For current caregivers, patient reportsself. For obu-wtpj-sd-face services performed, patient reportsnot medically indicated. For [...] in the medical record. pt went to [place] on 02/28/2025-02/27/1403/03/2025 abd painpt report symptoms are [...] dental treatmentcould not get imaging performed at [facility] or professional radiology- will send STAT [...] severe pain.Pt denies chest pain, palpitations, dyspnea. 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 Pt agreed to contact supervisor roving to scheduled appt. Pt will be started on amlodipine and losartan. Pancreatitis history/chronic pancreatitisHospitalized at [facility]-06/04/2024 (request record)Patient went back to [facility] 06/08/2024-06/15/2024 for pancreatitis pain again. Always has [...] management 4 days agof/u with GI at [facility] Dr. Gamble 11/2024 Syncope history--has not recurredsuggested [...] something to help her sleep LOURDES COLEMAN POLICE CHIEF [address], [place], [address], [place] - Dr. Tomi Quezada 03/04/2025 16:57:19 5 text/htm l not seen- had to reschedule Maritza Mcpherson NP [address], [place], [address], [place] - Dr. Tomi Quezada 03/04/2025 14:40:22 OBGyn Episode No OBEpisode recorded.
--- OUTSIDE RECORDS SUMMARY | 2025-04-21 18:54 | XMS_ITS | Continuity of Care Document ---
Author Organization [place] - Dr. Tomi Quezada, [facility] [place] Address [address] [facility] Andrey GALINDO [address] [place] [address] Care Team Providers Care Jewelry Maker Name Role Phone [facility] Pain Management Assessment Encounter Date Assessment Date Assessment LastModified by Organization Details LastModified Time 04/03/2025 04/03/2025 Patient presented for medication refill. Patient tolerating medication well at current dose without adverse effects. Refilled as below. Discussed plan with patient, who expressed understanding . Follow up as noted below. [email or web address] Not available 04/03/2025 17:26:16 Plan of Treatment Reminders Order Date Submit Date Provider Last Modified By Organization Details Last Modified Time Details Appointments None recorded. Lab None recorded. Referral None recorded. Procedures None recorded. Surgeries None recorded. Imaging None recorded. Medication Orders promethazin e 25 mg tablet 2024 025 [facility]/Pharmacy #[id number], [address] [place], [address], 17:27:50 tizanidine 4 mg tablet 2024 025 [facility]/Pharmacy #[id number], [address] [place], [address], 17:27:50 tizanidine 2 mg tablet 2024 025 [facility]/Pharmacy #[id number], [address] [place], [address], 17:27:50 scopolamine 1 mg over 3 days transdermal patch 2024 025 [facility]/Pharmacy #[id number], [address], [place], [address], 17:27:50 Patient TargetsNo targets recorded. Patient Instructions Encounter Date Encounter Id Patient Instructions Last Modified By Organization Details Last Modified Time 04/03/[id number] individual counseling* [email or web address] Not available 04/03/2025 17:27:46 Reason for Referral None Reported. Results Created Date Observation Date Name Description Value Unit Range Abnormal Flag Note LastModifiedBy Organization Detail LastModifiedTime 04/03/2004/03/2025 indiv idual couns eling * patient counseled Not Available [facility] [place] [address] [facility], [facility] [address], [place], [address], 04/02/2025 18:05:08 Result Notes None recorded. Problems Name Problem SNOMED Code Status Onset Date Resolution Date Notes Provider Name and Address Organization Details Recorded Time Acute pancreatitis 928621526 Active [place] - Dr. Tomi Quezada 5 16:24:31 Restless legs syndrome 46390708 DAVID Funez - Dr. Tomi Quezada 5 16:24:31 Migraine 41306776 [place] - Dr. Tomi Quezada 5 16:24:31 Simple obesity 951837146 DAVID Funez - Dr. Tomi Quezada 5 16:24:31 Chronic pancreatitis 737877177 Active 2022 JESUS PIMENTEL CUSTOMER ACCOUNT EXECUTIVE [address], [place], [address], [place] - Dr. Tomi Quezada 5 15:56:21 Mixed hyperlipidemia 826535665 Active 2022 DAVID Terrell - Dr. Tomi Quezada 3 16:50:12 Vitamin B12 deficiency (non anemic) 20933620 Active 2022 DAVID Terrell - Dr. Tomi Quezada 3 16:50:13 Conjunctivitis 9592516 Active 2022 Alexx Garcia MD [address], [place], [address], [place] - Dr. Tomi Quezada 3 13:12:09 Chronic nonspecific abdominal pain 264816662 Active 2022 JESUS PIMENTEL NP [address], [place], [address], [place] - Dr. Tomi Quezada 5 16:51:48 Opioid dependence 15711257 Active 2022 Tomi Quezada MD [address], [place], [address], [place] - Dr. Tomi Quezada 21:55:27 Benzodiazepine dependence 426046309 Active 2022 Tomi Quezada MD [address], [place], [address], [place] - Dr. Tomi Quezada 21:55:46 Low back pain 417846048 Active 2023 JESUS PIMENTEL NP [address], [place], [address], [place] Dr. Tomi Quezada 15:56:21 Tachycardia 2787447 Active 2023 Maritza Mcpherson NP [address], [place], [address], [place] - Dr. Tomi Quezada 4 17:47:04 Seizure disorder 055849740 Active 2023 Maritza Mcpherson NP [address], [place], [address], [place] - Dr. Tomi Quezada 4 11:16:55 Headache 25804855 Active 2023 Maritza Mcpherson NP [address], [place], [address], [place] - Dr. Tomi Quezada 4 11:17:33 Essential hypertension 32094960 Active 2023 JESUS PIMENTEL NP [address], [place], [address], [place] - Dr. Tomi Quezada 5 16:50:08 Tooth infection 482223850 Active 2024 JESUS PIMENTEL CUSTOMER ACCOUNT EXECUTIVE [address], [place], [address], [place] - Dr. Tomi Quezada 15:56:21 Nausea and vomiting, unspecified vomiting type 35064873 Active 2024 JESUSDAVIDSON PIMENTEL CUSTOMER ACCOUNT EXECUTIVE [address], [place], [address], [place] - Dr. Tomi Quezada 16:41:02 Motion sickness 26692519 Active 2024 JESUS PIMENTEL CUSTOMER ACCOUNT EXECUTIVE [address], [place], [address], [place] - Dr. Tomi Quezada 17:26:23 [...] Name and Address Organization Details Recorded Time 09539 iodine medicatio n Not available Not available Not available 04/02/2025 5933 RxNorm Not Available [employer] - External Data Service - prod 19:27:15 20272 prednison e medicatio n Not available Not [...] sever ities : 'Weal (diso rder) '. [place], [place] - Dr. Tomi Quezada 5 10:07:15 8899 ketorolac medicatio n Not available Not available Not available 08/20/2024 57286 RxNorm [place], [place] - Dr. Tomi Quezada 5 10:07:15 Medications [...] as needed for 30 days, for pain. 11/14/ 2025 active Not Available Not Available Not [...] Do You Have An Advance Directive? No [email or web address] Information not available 09/26/2022 If You Are , What Was Your Level Of Alcohol Consumption Prior To ? None [email or web address] Information not available 09/26/2022 What Is Your Level Of Caffeine Consumption? Occasional Information not available 09/26/2022 What Type Of Diet Are You Following? REGULAR [email or web address] Information not available 09/26/2022 Do You Have A Medical Power Of Glass Science Engineer? No [email or web address] Information not available 09/26/2022 How Many Children Do You Have? 1 [email or web address] Information not available 09/26/2022 Do You Have A Patient Advocate? No [email or web address] Information no t available 09/26/2022 What Is Your Relationship Status? [email or web address] Information not available 09/26/2022 Are You Sexually Active? No [email or web address] Information not available 09/26/2022 Do You Have Difficulty Walking Or Climbing Stairs? No [email or web address] Information not available 09/26/2022 Sex: Female Functional Status Question Answer Note LastModified by Organizat ion Details LastModified Time Do you use any illicit or recreational drugs? No [email or web address] Information not available 09/26/2022 Do you or have you ever used any other forms of tobacco or nicotine? No [email or web address] Information not available 09/26/2022 What is your level of alcohol consumption? None [email or web address] Information not available 09/26/2022 Are you currently employed? No [email or web address] Information not available 09/26/2022 What is your status? Not [email or web address] Information no t available 09/26/2022 Are you able to walk independently without assistance or assistive devices? YESWOREST [email or web address] Information not available 09/26/2022 Are you able to care for yourself independently? Yes [email or web address] Information not available 09/26/2022 What is your exercise level? Occasional Information not available 09/26/2022 Mental Status None recorded. Family History Relationship Description Onset Age of this Age Resolved Age Notes LastModified by Organization Details LastModified Time Paternal Grandfather Malignant neoplastic disease [email or web address] Not available 2022 14:46:24 Medical History Condition [...] objection Alexx Garcia MD [address], [place], [address], [place] - Dr. Tomi Quezada 10/03/2023 18:30:12 Influenza, MDCK, quadrivalent, preservative 10/03/19 24 cancelled patient objection Alexx Garcia MD [address], [place], [address], [facility] - Dr. Tomi Quezada 10/03/2023 18:30:12 COVID-19, mRNA, LNP-S, PF, 30 mcg/0.3 mL dose 02/01/20 21 completed KEYLA CAMPOSOSTJet [place], [place] - Dr. Tomi Quezada 09/26/2022 14:36:31 COVID-19, mRNA, LNP-S, PF, 30 mcg/0.3 mL dose 07/20/19 21 [place] - Dr. Tomi Quezada 09/26/2022 14:36:35 Tdap 05/21/19 19 completed [place], [place] - Dr. Tomi Quezada 09/26/2022 14:49:53 Influenza, MDCK, trivalent, preservative 01/24/20 24 cancelled patient objection Maritza Mcpherson, CUSTOMER ACCOUNT EXECUTIVE [address], [place], [address], [place] - Dr. Tomi Quezada 01/24/2024 17:42:28 Influenza, MDCK, trivalent, preservative 02/07/20 24 cancelled patient objection Maritza Mcpherson, ARACELI [address], [place], [address], [place] - Dr. Tomi Quezada 02/08/2024 11:15:01 Influenza, MDCK, trivalent, preservative 03/21/20 24 cancelled patient objection CHASITY WEISS [address], [place], [address], [place] - Dr. Tomi Quezada 03/21/2024 17:11:37 RSV, bivalent, protein subunit RSVpreF, diluent reconstituted, 0.5 mL, PF 03/03/20 completed DAVID Coreas - Dr. Tomi Quezada 04/03/2025 14:43:18 influenza nasal, unspecified formulation 06/06/19 completed [place] - Dr. Tomi Quezada 04/03/2025 14:45:37 Influenza, MDCK, trivalent, PF 08/21/19 cancelled patient objection CHASITY WEISS [address], [place], [address], [place] - Dr. Tomi Quezada 08/20/2024 10:44:31 Influenza, MDCK, trivalent, preservative 11/27/19 25 cancelled patient objection Carlin Patterson, CUSTOMER ACCOUNT EXECUTIVE [address], [place], [address], [place] - Dr. Tomi Quezada 11/26/2024 17:55:55 COVID-19, mRNA, LNP-S, PF, aldo-sucrose, 30 mcg/0.3 mL 11/27/19 25 cancelled patient objection Carlin Patterson NP [address], [place], [address], [facility] - Dr. Tomi Quezada 11/26/2024 17:55:55 Past Encounters Encounter ID Performer Location Encounter Start Date Encounter Closed Date Diagnosis/Indication Diagnosis SNOMED-CT Code Diagnosis ICD10 Code Diagnosis IMO Codes Diagnosis Note [id number] Alexx Garcia MD [facility] [place] [address] [facility], [facility] [address] [place] [address] 03/04/2025 12:42:29 03/04/2025 14:40:23 [id number] Alexx Garcia MD [facility] [address] [place] [address] 03/04/2025 15:28:27 03/04/2025 17:32:22 Screening mammography 50385093 Z12.31 12/19/2023 Screening for malignant neoplasm of colon 418574800 Z12.11 fecal 12/06/2024 Hepatitis C screening 41 4861702 Z11.59 Depression screening 171 003693 Z13.31 Immunization due 3483634 08 Z23 8206414 vaccines up to date Screening for malignant neoplasm of cervix 742828778 Z12.4 Counseling 512805741 Z71 .89 [id number] ER warnings given: patient to call 911 or go to nearest ER if severe chest pain, syncope, increased palpitatio ns, nausea, vomiting, LOC. Patinet verbalizes understand ing and agrees w plan.ER warnings given if abdominal pain, nausea, vomiting, fever, severe diarrhea, blood in stools, dark stools, blood in urine, syncope, chest pain, shortness of breath. Transition of care 81278 50253 105 Z75.8 03/02/2025 . scheduled f/u with GI on 03/16/2025 Body mass index 30+ - obesity 983204798 Z68.30 209978 30.8 Renewal of prescription 425520470 Z76.0 Infection of tooth 03920 8007 K04.7 901987 improved Low back pain 334541589 M54.50 patient requesting stronger medication s for her chronic pain- advised she needs to follow up with barrel painter and have a dental assessment for mouth pain Chronic no nspecific abdominal pain 064698347 R10.9 scheduled f/u with GI on 03/16/2025 Essential hypertension 35907238 I10 pt will call cardiologi st to scheduled appt today Had extensive conversati on with pain about HTN and medication . Pt verbalized understand ing risk of uncontroll ed HTN. Pt agreed to contact cardiologi st to scheduled appt. Pt will be started on amlodipine and losartan. Nausea and vomiting 1691999 R11.2 4051727062 Patient no ncompliance - general 226415425 Z91.199 362468 ER warnings given: patient to call 911 [...] will be started on amlodipine and losartan. [id number] Alexx Garcia MD [facility] [address] [address] 04/03/2025 14:33:08 04/03/2025 17:42:55 Screening mammography 53647602 Z12.31 12/19/2023 order given 03/04/2025 Screening for malignant neoplasm of colon 379103794 Z12.11 fecal 12/06/2024 Hepatitis C screening 41 5675383 Z11.59 11/26/2024 Depression screening 171 255316 Z13.31 Immunization due 5973970 08 Z23 6305817 vaccines up to date Screening for malignant neoplasm of cervix 987239808 Z12.4 Counseling 644100108 Z71 .89 [id number] ER warnings given: patient to call 911 or go to nearest ER if severe chest pain, syncope, increased palpitatio ns, nausea, vomiting, LOC. Patinet verbalizes understand ing and agrees w plan.ER warnings given if abdominal pain, nausea, vomiting, fever, severe diarrhea, blood in stools, dark stools, blood in urine, syncope, chest pain, shortness of breath. Renewal of prescription 019284354 Z76.0 promethazi ne 25mgtizani dine 2 and 4 mgscopolam ine 1mg over 3 days transderma l patches Nausea and vomiting 1693 1999 R11.2 Low back pain 948416731 M54.50 patient requesting stronger medication s for her chronic pain- advised she needs to follow up with barrel painter and have a dental assessment for mouth pain Motion sickness 44596766 T75.3XXA Essential hypertension 24651733 I10 pt will call cardiologi st to [...] Member ID Lamar Member ID Guarantor Name 04/03/2025 1 [employer] (O) [id number] Kasia Sunil [id number] Kasia Sunil Notes Date Note Type Note Provider Name and Address Organization Details Recorded Time 5 text/htm l ROS as noted in [...] changes since last visit pt went to [facility] on 02/28/2025-02/27/1403/03/2025 abd pain - no changes [...] dental treatmentcould not get imaging performed at [facility] imaging or professional radiology- will send [...] severe pain.Pt denies chest pain, palpitations, dyspnea. Hearing Aid Fitter - has not seen him since May [...] of uncontrolled HTN. Pt agreed to contact retail account specialist to scheduled appt. Pt will be started on amlodipine and losartan. Pancreatitis history/chronic pancreatitisHospitalized at [facility] from 05/24/2024-06/04/2024 (request record)Patient went back to [facility] 06/08/2024-06/15/2024 for pancreatitis pain again. [...] management 4 days agof/[place] [facility] [place] 11/2024 Syncope history--has not recurredsuggested [...] divorceno longer following Dr Sr, at [facility] well and doesn't feel like needs medications at this timereports just having problems sleeping--would like something to help her sleep JESUS PIMENTEL CUSTOMER ACCOUNT EXECUTIVE [address], [place], [address], [place] - Dr. Tomi Quezada 04/03/2025 17:28:12 OBGyn Episode No OBEpisode recorded.
--- OUTSIDE RECORDS SUMMARY | 2025-04-21 18:54 | XMS_ITS | Continuity of Care Document ---
Author Organization [place] - Dr. Tomi Quezada, [facility] Address [address] [address] Care Team Providers Care Tax Record Clerk Name Role Phone [facility] Pain Management Assessment No assessment recorded. Plan of Treatment Reminders Order Date Submit Date Provider Last Modified By Organization Details Last Modified Time Details Appointments None recorded. Lab CBC w/ auto diff 2024 025 [place] [employer] [facility], [address], [facility] [address], [place], [address], 04:17:24 Referral None recorded. Procedures None recorded. Surgeries None recorded. Imaging CT, maxillofac ial, w/ contrast - stat 2024 025 [facility], [address] [place], [address], 5 04:17:25 Medication Orders tizanidine 4 mg tablet 2024 025 [facility]/Pharmacy #[id number], [address] [place], [address], 5 15:50:11 tizanidine 2 mg tablet 2024 025 [facility]/Pharmacy #[id number], [address] [place], [address], 5 15:50:10 promethazi ne 25 mg tablet 2024 025 [facility]acy #[id number], [address] , [place], [address], 15:50:10 Patient TargetsNo targets recorded. Patient InstructionsNo instructions recorded. Reason for Referral None Reported. Results Created Date Observation Date Name Description Value Unit Range Abnormal Flag Note LastModifiedBy Organization Detail LastModifiedTime Result Notes None recorded. Problems Name Problem SNOMED Code Status Onset Date Resolution Date Notes Provider Name and Address Organization Details Recorded Time Acute pancreatitis 148052244 Active [place]AS [place], [place] - Dr. Tomi Quezada 5 16:24:31 Restless legs syndrome 52550443 Active DAVID Solano - Dr. Tomi Quezada 16:24:31 Migraine 96751830 Active DAVID Solano - Dr. Tomi Quezada 16:24:31 Simple obesity 639892930 Active DAVID Solano - Dr. Tomi Quezada 5 16:24:31 Chronic pancreatitis 951903184 Active 2022 JESUS PIMENTEL NP [address], [place], [address], [place] - Dr. Tomi Quezada 5 15:56:21 Mixed hyperlipidemia 386169127 Active 2022 DAVID Terrell - Dr. Tomi Quezada 3 16:50:12 Vitamin B12 deficiency (non anemic) 55059022 Active 2022 DAVID Terrell - Dr. Tomi Quezada 3 16:50:13 Conjunctivitis 0997326 Active 2022 Alexx Garcia MD [address], [place], [address], [place] - Dr. Tomi Quezada 3 13:12:09 Chronic nonspecific abdominal pain 580739539 Active 2022 JESUS PIMENTEL NP [address], [place], [address], [place] - Dr. Tomi Quezada 5 16:51:48 Opioid dependence 28616829 Active 2022 Tomi Quezada MD [address], [place], [address], [place] - Dr. Tomi Quezada 3 21:55:27 Benzodiazepine dependence 547974748 Active 2022 Tomi Quezada MD [address], [place], [address], [place] - Dr. Tomi Quezada 3 21:55:46 Low back pain 132974707 Active 2023 JESUS PIMENTEL WET RO[employer]ER [address], [place], [address], [place] - Dr. Tomi Quezada 15:56:21 Tachycardia 5168925 Active 2023 Maritza Mcpherson NP [address], [place], [address], [place] - Dr. Tomi Quezada 17:47:04 Seizure disorder 886836750 Active 2023 Maritza Mcpherson NP [address], [place], [address], [place] - Dr. Tomi Quezada 11:16:55 Headache 69916337 Active 2023 Maritza Mcpherson NP [address], [place], [address], [place] - Dr. Tomi Quezada 4 11:17:33 Essential hypertension 07258704 Active 2023 JESUS PIMENTEL [employer] [address], [place], [address], [place] - Dr. Tomi Quezada 16:50:08 Tooth infection 852463729 Active 2024 JESUS PIMENTEL [employer] [address], [place], [address], [place] - Dr. Tomi Quezada 15:56:21 Nausea and vomiting, unspecified vomiting type 05972339 Active 2024 JESUS PIMENTEL [employer] [address], [place], [address], [place] - Dr. Tomi Quezada 5 16:41:02 Motion sickness 65278714 Active 2024 JESUS PIMENTEL NP [address], [place], [address], [place] - Dr. Tomi Quezada 17:26:23 [...] KEYLA Quezada 09/26/2022 14:47:29 Appendectomy completed KEYLA HERNANDEZ - Dr. Tomi Quezada 09/26/2022 14:47:36 Cholecystectomy completed KEYLA HERNANDEZ - Dr. Tomi Quezada 09/26/2022 14:47:46 tonsillectomy completed KEYLA Quezada 09/26/2022 14:47:53 Knee Surgery completed KEYLA HERNANDEZ - Dr. Tomi Quezada 09/26/2022 14:48:50 Imaging Results None recorded. Procedure Notes None recorded. Medical Equipment None Reported. Allergies Allergen ID Allergen Name Allergen Category Reaction Reaction Severity Criticality Documentation Date Start Date Code Code System Note Provider Name and Address Organization Details Recorded Time 62270 iodine medicatio n Not available Not available Not available 04/02/2025 5933 RxNorm Not Available [employer] - prod 19:27:15 61980 prednison e medicatio n Not available Not available Not available 04/02/2025 8640 RxNorm Not Available [employer] - prod 19:27:15 6339 shellfish derived food,medi cation Not available Not available Not available 09/26/[address] 3 14:35:17 8619 loperamid e medicatio n Not available Not available Not available 06/25/2024 6468 RxNorm Other react ions and sever ities : 'Weal (diso rder) '. DAVID Martin Dr. 5 10:07:15 8899 ketorolac medicatio n Not available Not available Not available 08/20/2024 [address] 5 10:07:15 Medications [...] Updated DateTime 02/02/2025 165.1 cm 30.8 kg/m2 84808.59 g 235/160 mm[Hg] PARTH Quezada 02/02/2025 13:39:15 Social History Question Answer Notes LastModified by Organizat ion Details LastModified Time Tobacco Smoking Status Never Smoker DAVID Joseph Dr. 09/26/2022 14:46:38 Do You Have An Advance Directive? No [email or web address] Information not available 09/26/2022 If You Are , What Was Your Level Of Alcohol Consumption Prior To ? None [email or web address] Information not available 09/26/2022 What Is Your Level Of Caffeine Consumption? Occasional [email or web address] Information not available 09/26/2022 What Type Of Diet Are You Following? REGULAR [email or web address] Information not available 09/26/2022 Do You Have A Medical Power Of Strategic Partner Development Manager? No [email or web address] Information not available 09/26/2022 How Many Children Do You Have? 1 [email or web address] Information not available 09/26/2022 Do You Have A Patient Advocate? No Information no t available 09/26/2022 What Is Your Relationship Status? Information not available 09/26/2022 Are You Sexually Active? No [email or web address] Information not available 09/26/2022 Do You Have Difficulty Walking Or Climbing Stairs? No [email or web address] Information not available 09/26/2022 Sex: Female Functional Status Question Answer Note LastModified by Organizat ion Details LastModified Time Do you use any illicit or recreational drugs? No [email or web address] Information not available 09/26/2022 Do you or have you ever used any other forms of tobacco or nicotine? No [email or web address] Information not available 09/26/2022 What is your level of alcohol consumption? None [email or web address] Information not available 09/26/2022 Are you currently employed? No [email or web address] Information not available 09/26/2022 What is your status? Not [email or web address] Information no t available 09/26/2022 Are you able to walk independently without assistance or assistive devices? [email or web address] Information not available 09/26/2022 Are you able to care for yourself independently? Yes [email or web address] Information not available 09/26/2022 What is your exercise level? Occasional [email or web address] Information not available 09/26/2022 Mental Status None recorded. Family History Relationship Description Onset Age of this Age Resolved Age Notes LastModified by Organization Details LastModified Time Paternal Grandfather Malignant neoplastic disease [email or web address] Not available 2022 14:46:24 Medical History Condition [...] 24 cancelled patient objection Alexx Garcia MD [facility] [address], [place], [address], [place] - Dr. Tomi Quezada 10/03/2023 18:30:12 Influenza, MDCK, quadrivalent, preservative 10/03/19 24 cancelled patient objection Alexx Garcia MD [facility] [address], [place], [address], [place] - Dr. Tomi Quezada 10/03/2023 18:30:12 COVID-19, mRNA, LNP-S, PF, 30 mcg/0.3 mL dose 06/21/19 21 completed KEYLA TAPIA [place], [place] - Dr. Tomi Quezada 09/26/2022 14:36:31 COVID-19, mRNA, LNP-S, PF, 30 mcg/0.3 mL dose 07/20/19 21 completed KEYLA TAPIA null, [place] - Dr. Tomi Quezada 09/26/2022 14:36:35 Tdap 05/21/19 19 completed KEYLA TAPIA null, [place] - Dr. Tomi Quezada 09/26/2022 14:49:53 Influenza, MDCK, trivalent, preservative 01/24/20 24 cancelled patient objection Maritza Mcpherson, W[facility] [employer] [address], [place], [address], [place] - Dr. Tomi Quezada 01/24/2024 17:42:28 Influenza, MDCK, trivalent, preservative 02/07/20 24 cancelled patient objection Maritza Mcpherson, W[employer] [address], [place], [address], [place] - Dr. Tomi Quezada 02/08/2024 11:15:01 Influenza, MDCK, trivalent, preservative 03/21/20 24 cancelled patient objection CHASITY WEISS [address], [place], [address], [place] - Dr. Tomi Quezada 03/21/2024 17:11:37 RSV, bivalent, protein subunit RSVpreF, diluent reconstituted, 0.5 mL, PF 03/03/20 completed DAVID Coreas - Dr. Tomi Quezada 04/03/2025 14:43:18 influenza nasal, unspecified formulation 06/06/19 completed DAVID Coreas - Dr. Tomi Quezada 04/03/2025 14:45:37 Influenza, MDCK, trivalent, PF 08/21/19 25 cancelled patient objection CHASITY WEISS [address], [place], [address], [place] - Dr. Tomi Quezada 08/20/2024 10:44:31 Influenza, MDCK, trivalent, preservative 11/27/19 25 cancelled patient objection Carlin Patterson [employer] [employer] [address], [place], [address], [place] - Dr. Tomi Quezada 11/26/2024 17:55:55 COVID-19, mRNA, LNP-S, PF, aldo-sucrose, 30 mcg/0.3 mL 11/27/19 25 cancelled patient objection Carlin Patterson [employer] [address], [place], [address], [place] - Dr. Tomi Quezada 11/26/2024 17:55:55 Past Encounters Encounter ID Performer Location Encounter Start Date Encounter Closed Date Diagnosis/Indication Diagnosis SNOMED-CT Code Diagnosis ICD10 Code Diagnosis IMO Codes Diagnosis Note [id number] Tomi Quezada MD [facility] [address] [address] 01/27/2025 14:22:34 01/27/2025 15:43:11 Screening for malignant neoplasm of colon 347266023 Z12.11 12/06/2024 FECAL Depression screening 171 073376 Z13.31 negative Immunization due 1874656 08 Z23 4199954 tdap, flu & covid UP TO DATE. Screening for malignant neoplasm of cervix 838189102 Z12.4 05/21/2015 Body mass index 30+ - obesity 005299533 Z68.30 732688 30.7 Bacterial sinusitis 7034 00039 J32.9 B96.89 5893835 will treat as belowconti nue with flonase [id number] Alexx Garcia MD [facility] [address] [address] 01/29/2025 10:53:44 01/29/2025 11:14:16 Screening mammography 89182941 Z12.31 12/19/2023 Depression screening 171 523502 Z13.31 negative Body mass index 30+ - obesity 805030849 Z68.30 956238 30.7 Acute maxi llary sinusitis 98934833 J01.00 51509190 refer to stat CT. If unable to have CT done today recommend patient go to ER or if new or worsening symptoms. continue augmentin [id number] Alexx Garcia MD [facility] [address], [address] [address] 01/30/2025 14:38:34 01/30/2025 15:05:49 Screening mammography 51712335 Z12.31 12/19/2023 Depression screening 171 507945 Z13.31 negative Infection of tooth 38038 8007 K04.7 134555 continue augmentin, [facility] send [facility] to other radiology clinictake tylenol/ib uprofen as directed for pain. ER warnings reiterated --voiced understand ing [id number] Alexx Garcia MD [facility] [address] [place] [address] 02/02/2025 13:34:49 02/02/2025 15:52:38 Screening mammography 17670266 Z12.31 has order from 01/30/2025 Screening for malignant neoplasm of colon 031398887 Z12.11 FIT 11/2024 - colonoscop y has order from 11/2024 Depression screening 171 581769 Z13.31 Immunization due 2783477 08 Z23 6320588 Counseling 006978147 Z71 .89 87876771 Patient was seen in dental clinic 02/02/2025 [...] be ordered on 02/02/2025 Renewal of prescription 363372346 Z76.0 Infection of tooth 20823 8007 K04.7 123053 Chronic pancreatitis 235 444058 K86.1 Low back pain 018887150 M54.50 patient requesting stronger medication s for her chronic pain- advised she needs to follow up with painter assistant and have a dental assessment for mouth pain Health Concerns Section Related Observation LastModified by Organization Detai ls LastModified Time None Recorded Concern Status LastModified by Organization Details LastModified Time None Recorded Payers Encounter Date Sequence Insurance Name Policy Number Policy Lamar Covered Member ID Lamar Member ID Guarantor Name 02/02/2025 1 [employer] (O) [id number] Kasia Sunil [id number] Kasia Barber Notes Date Note Type Note Provider Name and Address Organization Details Recorded Time 5 text/htm l Transition Care ManagementReported by PatientHPIFor timing, patient reportsdate of discharge: (01/30/2025). For facility, patient reportsdischarged to: (home). For current caregivers, patient reportsself. For gyu-wqss-do-face services performed, patient reportsnot medically indicated. For functional status, patient reportsno difficulty following discharge instructions,taking medications as prescribed, andfollowing recommended activity level. [facility]: (02/02/2025). VIRTUAL VISIT: This [...] dental treatmentcould not get [facility]- will send STAT order to [facility] 02/02/2025patient has had 3x ER [...] half tab daily Pancreatitis history/chronic pancreatitisHospitalized at [facility]-06/04/2024 (request record)Patient went back to [facility] 06/08/2024-06/15/2024 for pancreatitis pain again. Always has [...] management 4 days agof/u [facility] Dr[facility] Gamble 11/2024 Syncope history--has not recurredsuggested [...] her sleep JULIA MCDERMOTT [address], [place], [address], [place] - Dr. Tomi Quezada 02/02/2025 15:50:06 OBGyn Episode No OBEpisode recorded.
--- NOTE | 2025-04-21 18:55 | HMH.EDGENADL ---
Discharge Plan Disposition Patient Disposition: Admitted Clinical Impressions Clinical Impression: GI bleed Discharge ED Provider: Colt Tate General Adult HPI <Anuradha Annamarie (ED), CHIEF REVENUE OFFICER - Last Filed: 04/21/25 21:37> General Chief complaint: Abdominal Pain Stated complaint: vomiting blood,severe abdominal pain Time Seen by Provider: 04/21/25 18:37 Mode of Arrival: Ambulatory Source of Information: Patient Description of Symptoms (Recalled from ER Triage Doc. by RN): patient states she has been having severe upper abdominal pain since sunday last week with vomiting blood. she was admitted for pain control History of Present Illness HPI narrative: 44-year-old female presents to the ED today for complaints of upper abdominal pain since Sunday last week. She says she initially was vomiting specks when she got up this morning. She says an hour ago she started vomiting more and showed me a picture of the toilet that she threw up in. 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 She says that she hurts in the center and the left side of her abdomen into her back. She says it feels like contractions and sharp pain. She says she was recently admitted back on 1126 for pain control. She has had no diarrhea. Her history includes a Lap-Band with decreased hemoglobin down 3 points while she was in the ED the last time she was here. She says that she last saw her GI in [place] in February. She is here until May 26 due to her daughter having a baby recently. She is allergic to iodine and shellfish she can have scans that she just has to be premedicated for this. Related Data Home Medications ?Medication ?Instructions ?Recorded ?Confirmed scopolamine base 1 mg over 3 days 1 patch transdermal 2XW 04/04/25 04/15/25 transdermal patch tizanidine 4 mg tablet 4 mg PO Q6H PRN Pain (Scale Score 04/04/25 04/15/25 4-6) acetaminophen 300 mg-codeine 30 mg 1 tab PO QID 04/15/25 04/15/25 tablet amlodipine 5 mg tablet 5 mg PO BID 04/15/25 04/15/25 cyclobenzaprine 10 mg tablet 10 mg PO HS 04/15/25 04/15/25 losartan 100 mg tablet 100 mg PO DAILY 04/15/25 04/15/25 pregabalin 200 mg capsule 200 mg PO BID 04/15/25 04/15/25 Previous Rx's ?Medication ?Instructions ?Recorded epinephrine 0.3 mg/0.3 mL 0.3 mg (0.3 mL) IM Q5-15M PRN 05/16/21 injection, auto-injector (EpiPen anaphylaxis #2 ea 2-Luis) pantoprazole 40 mg tablet,delayed 40 mg PO DAILY #30 tabs 05/15/24 release promethazine 25 mg tablet 25 mg PO Q6H PRN nausea and 05/15/24 vomiting #12 tabs hydrocodone 5 mg-acetaminophen 325 1 tab PO Q4H PRN pain 3 days #15 04/16/25 mg tablet tabs sucralfate 1 gram tablet 1 g PO ACHS 30 days #120 tabs 04/16/25 Allergies Allergy/AdvReac Type Severity Reaction Status Date / Time Iodinated Contrast Media Allergy Severe Anaphylaxis Verified 04/04/25 11:27 (IODINATED CONTRAST MEDIA - IV DYE) codeine (CODEINE) Allergy Unknown SWELLING Verified 04/04/25 11:27 iodine (IODINE) Allergy Unknown Anaphylaxis Verified 04/04/25 11:27 loperamide (LOPERAMIDE) Allergy Unknown Rash Verified 04/04/25 11:27 shellfish derived (From Allergy Unknown SWELLING Verified 04/04/25 11:27 SHELLFISH (FOOD/DRUG)) ketorolac (From Toradol) Allergy Difficulty Verified 04/15/25 14:01 Breathing [facility] <Anuradha De Luna (MICHAEL), CHIEF REVENUE OFFICER - Last Filed: 04/21/25 21:37> [facility] Disclaimer: The information contained in this section may have been updated after the patient was seen, as this information can be updated by other users. Medical History (Updated 04/21/25 @ 21:39 by Anuradha De Luna (ED), CHIEF REVENUE OFFICER) Insect bite Social History Smoking Status: Never smoker alcohol intake: never substance use type: denies use current occupational status: other Travel in the last 8 weeks?: None household members: family housing: house Have you lived/traveled outside US in past 30 days?: No Contact w/someone who lives/traveled outside US past 30 days?: No Exposure to someone with infectious disease in past 14 days?: No Do you have a fever (greater than 100.4 F or 38 C)?: No Have you tested positive for COVID-19?: No Exposed to someone with COVID-19 in past 14 days?: No Do you have a sore throat?: No Do you have a cough?: No Do you have any weakness?: No Do you have any diarrhea?: No Are you experiencing any unusual bleeding?: No Do you have any muscle aches/pain?: No Do you have any abdominal pain?: No Are you experiencing loss of taste or smell?: No Other Medical History Have you received the Flu Vaccine for this season: No Have you received the Pneumonia Vaccine: No <Anuradha De Luna (ED), CHIEF REVENUE OFFICER - Last Filed: 04/21/25 21:37> ROS Obtained: Yes Systems reviewed as appropriate & no additional complaints except as documented Constitutional Constitutional: Reports as per HPI Physical Exam <Anuradha De Luna (ED), CHIEF REVENUE OFFICER - Last Filed: 04/21/25 21:37> General General appearance: alert and anxious Head Head exam: normocephalic Eye Eye exam: Present PERRL and EOMI ENT ENT exam: Present normal oropharynx and mucous membranes moist Neck Neck exam: Present full ROM and trachea midline Respiratory Respiratory exam: Present normal lung sounds bilaterally Cardiovascular Cardiovascular exam: Present normal rhythm, tachycardia, normal heart sounds, +S1 and +S2 Abdominal Exam Abdominal exam: Present soft, tenderness and normal bowel sounds Abdominal tenderness: Present moderate Extremities Exam Extremities exam: Present full ROM and normal capillary refill Neurological Exam Neurological exam: Present alert and oriented X3 Psychiatric Psychiatric exam: Present anxious Skin Skin exam: Present warm and dry Medical Decision Making <Anuradha De Luna (ED), CHIEF REVENUE OFFICER - Last Filed: 04/21/25 21:37> Medical Records Screening: Per USPSTF and CDC recommendations, given the prevalence of disease in our region, it is our hospital?s policy to screen for HIV and viral Hepatitis for all patients aged 18 and over and those with ongoing risk factors. Misha Inquiry Pt receiving controlled substance: No Misha was queried for this patient: No Vital Signs: 04/21/25 18:42 04/21/25 18:44 04/21/25 20:45 Temperature 98.6 F Temperature Source Oral Pulse Rate 124 H 96 H Pulse Rate [Right Radial] 118 H Respiratory Rate 15 13 14 Blood Pressure 136/108 H 134/97 H Blood Pressure [Right Arm] 136/108 H Blood Pressure Mean 117 105 Blood Pressure Mean [Right Arm] 117 Blood Pressure Source [Right Arm] Automatic Cuff Blood Pressure Position [Right Arm] Supine 02 Sat by Pulse Oximetry 100 100 98 Oxygen Delivery Method Room Air 04/21/25 21:00 Temperature Temperature Source Pulse Rate 102 H Pulse Rate [Right Radial] Respiratory Rate 14 Blood Pressure 147/98 H Blood Pressure [Right Arm] Blood Pressure Mean 107 Blood Pressure Mean [Right Arm] Blood Pressure Source [Right Arm] Blood Pressure Position [Right Arm] 02 Sat by Pulse Oximetry 98 Oxygen Delivery Method Lab Data Lab Results 04/21/25 18:37: Urine Color Yellow, Urine Appearance Clear, Urine pH 6.0, Ur Specific [place] 1.025, Urine Protein Negative, Urine Glucose (UA) Negative, Urine Ketones Negative, Urine Blood Negative, Urine Nitrate Negative, Urine Bilirubin Negative, Urine Urobilinogen 0.2, Ur Leukocyte Esterase Negative, Urine RBC None, Urine WBC None, Ur Squamous Epith Cells None, Calcium Oxalate Crystal 1+, Urine Bacteria None 04/21/25 20:18: WBC 5.3, RBC 4.07 L, Hgb 12.4, Hct 37.7, MCV 92.6, MCH 30.5, MCHC 32.9, RDW 13.3, Plt Count 222, MPV 9.5, Neut % (Auto) 51.6, Lymph % (Auto) 40.1, [place] % (Auto) 6.2, Eos % (Auto) 1.1, Baso % (Auto) 0.8, Neut # (Auto) 2.7, Lymph # (Auto) 2.1, [place] # (Auto) 0.3, Eos # (Auto) 0.1, Baso # (Auto) 0.0, PT 10.7, INR 0.96, APTT 23.3, Sodium 143, Potassium 3.6, Chloride 107, Carbon Dioxide 25, Anion Gap 14.6, BUN 16, Creatinine 0.70, Estimated Creat Clear 139, Estimated GFR 90, Est GFR ( Amer) 109, Glucose 86, Calcium 9.2, Magnesium 2.0, Total Bilirubin 0.4, AST 27, ALT 18, Alkaline Phosphatase 91, Total Protein 7.9, Albumin 4.8, Globulin 3.1, Albumin/Globulin Ratio 1.5, Lipase 43 04/21/25 20:18 04/21/25 20:18 Orders (Tests/Meds): ED MEDICATIONS Discontinued Medications Generic Name Dose Route Start Last Admin Trade Name Freq PRN Reason Stop Dose Admin Acetaminophen 1,000 mg 04/21/25 18:51 04/21/25 20:36 Acetaminophen 1,000mg/100ml Vial IV 04/21/25 18:52 1,000 mg ONCE ONE Administration Diphenhydramine HCl 50 mg 04/21/25 18:51 04/21/25 20:33 Diphenhydramine 50mg/Ml Vial IV 04/21/25 18:52 50 mg ONCE ONE Administration Sodium Chloride 1,000 mls @ 999 mls/hr 04/21/25 18:51 04/21/25 20:34 Sod Chlor 0.9% 1000ml Bag IV 04/21/25 19:51 999 mls/hr .Q1H1M ONE Administration Pantoprazole Sodium 80 mg/ 100 mls @ 100 mls/hr 04/21/25 18:51 04/21/25 20:55 Sodium Chloride IV 04/21/25 19:50 100 mls/hr ONCE ONE Administration Methylprednisolone Sodium Succinate 125 mg 04/21/25 18:54 04/21/25 20:43 Methylprednisolone Sod Succ 125mg Vial IV 04/21/25 18:55 125 mg ONCE ONE Administration Morphine Sulfate 4 mg 04/21/25 18:51 04/21/25 20:31 Morphine 4mg/Ml Syringe IV 04/21/25 18:52 4 mg ONCE ONE Administration Morphine Sulfate 4 mg 04/21/25 21:33 Morphine 4mg/Ml Syringe IV 04/21/25 21:34 ONCE ONE Ondansetron HCl 4 mg 04/21/25 18:51 04/21/25 20:38 Ondansetron 4mg/2ml Vial IV 04/21/25 18:52 4 mg ONCE ONE Administration ORDERS Category Date Time Status Type and Screen Stat BBK 04/21/25 20:38 Received Chest XR -- portable [XR chest portable] Stat Exams 04/21/25 18:51 Completed CBC [Complete Blood Count Auto Diff] Stat Lab 04/21/25 20:18 Completed Comprehensive Metabolic Panel Stat Lab 04/21/25 20:18 Results HIV Combo Stat Lab 04/21/25 20:18 Received Hepatitis C Ab Qual. W/ RFX Stat Lab 04/21/25 20:18 Received Lipase Stat Lab 04/21/25 20:18 Results Magnesium Stat Lab 04/21/25 20:18 Results PT INR [Prothrombin Time INR] Stat Lab 04/21/25 20:18 Completed PTT [Activated Partial Thrombo Time] Stat Lab 04/21/25 20:18 Completed Trop I [Troponin I] Stat Lab 04/21/25 20:18 Results Troponin I Q3H Lab 04/21/25 22:00 Ordered Troponin I Q3H Lab 04/22/25 01:00 Ordered Urinalysis and Microscopic Stat Lab 04/21/25 18:37 Completed Medical Decision Narrative: patient is a 44-year-old female presenting to the emergency department for evaluation of abdominal pain, vomiting with blood. Patient is hemodynamically stable and nontoxic-appearing upon arrival, afebrile. Differential diagnosis includes pancreatitis flare, hematemesis, viral, GI bleed, among others. Workup will be conducted with hematologic labs, specific imaging. Initial inventions include crystalloid bolus, analgesics. We will pretty medicate patient with Solu-Medrol, Protonix, Benadryl as she is allergic to iodine and contrast media. Patient has anaphylaxis to contrast media. This was discussed with Dr. Tate and we chose not to scan her since she has a GI bleed and we will likely need to scope her. I talked to Dr. Oh about admitting patient to scope her and he is agreeable to admit her and scope her in the morning at 7:30 AM. Patient will be n.p.o. after midnight. I will wait for labs to result before I call hospitalist for admission. Patient's labs are back, White count was 5, H&H are stable 12 and 37 electrolytes are normal AST ALT are normal and normal kidney function. Patient is stable at this time. Baljeet has evaluated patient here in the ED. And agrees to admit patient. She will have scope in the morning Procedure: Procedure performed was ultrasound-guided IV placement. Procedure performed by Colt Tate. Using real-time ultrasound guidance the left brachial vein was cannulated with a long peripheral 18 gauge IV. The vessel cannulated was patent. Images were not saved to permanent archive. Patient tolerated the procedure well. There were no immediate complications. <Colt Tate MD - Last Filed: 04/21/25 21:41> Vital Signs: 04/21/25 18:42 04/21/25 18:44 04/21/25 20:45 Temperature 98.6 F Temperature Source Oral Pulse Rate 124 H 96 H Pulse Rate [Right Radial] 118 H Respiratory Rate 15 13 14 Blood Pressure 136/108 H 134/97 H Blood Pressure [Right Arm] 136/108 H Blood Pressure Mean 117 105 Blood Pressure Mean [Right Arm] 117 Blood Pressure Source [Right Arm] Automatic Cuff Blood Pressure Position [Right Arm] Supine 02 Sat by Pulse Oximetry 100 100 98 Oxygen Delivery Method Room Air 04/21/25 21:00 Temperature Temperature Source Pulse Rate 102 H Pulse Rate [Right Radial] Respiratory Rate 14 Blood Pressure 147/98 H Blood Pressure [Right Arm] Blood Pressure Mean 107 Blood Pressure Mean [Right Arm] Blood Pressure Source [Right Arm] Blood Pressure Position [Right Arm] 02 Sat by Pulse Oximetry 98 Oxygen Delivery Method Lab Data Lab Results 04/21/25 18:37: Urine Color Yellow, Urine Appearance Clear, Urine pH 6.0, Ur Specific [place] 1.025, Urine Protein Negative, Urine Glucose (UA) Negative, Urine Ketones Negative, Urine Blood Negative, Urine Nitrate Negative, Urine Bilirubin Negative, Urine Urobilinogen 0.2, Ur Leukocyte Esterase Negative, Urine RBC None, Urine WBC None, Ur Squamous Epith Cells None, Calcium Oxalate Crystal 1+, Urine Bacteria None 04/21/25 20:18: WBC 5.3, RBC 4.07 L, Hgb 12.4, Hct 37.7, MCV 92.6, MCH 30.5, MCHC 32.9, RDW 13.3, Plt Count 222, MPV 9.5, Neut % (Auto) 51.6, Lymph % (Auto) 40.1, [place] % (Auto) 6.2, Eos % (Auto) 1.1, Baso % (Auto) 0.8, Neut # (Auto) 2.7, Lymph # (Auto) 2.1, [place] # (Auto) 0.3, Eos # (Auto) 0.1, Baso # (Auto) 0.0, PT 10.7, INR 0.96, APTT 23.3, Sodium 143, Potassium 3.6, Chloride 107, Carbon Dioxide 25, Anion Gap 14.6, BUN 16, Creatinine 0.70, Estimated Creat Clear 139, Estimated GFR 90, Est GFR ( Amer) 109, Glucose 86, Calcium 9.2, Magnesium 2.0, Total Bilirubin 0.4, AST 27, ALT 18, Alkaline Phosphatase 91, Total Protein 7.9, Albumin 4.8, Globulin 3.1, Albumin/Globulin Ratio 1.5, Lipase 43 Orders (Tests/Meds): ED MEDICATIONS Discontinued Medications Generic Name Dose Route Start Last Admin Trade Name Freq PRN Reason Stop Dose Admin Acetaminophen 1,000 mg 04/21/25 18:51 04/21/25 20:36 Acetaminophen 1,000mg/100ml Vial IV 04/21/25 18:52 1,000 mg ONCE ONE Administration Diphenhydramine HCl 50 mg 04/21/25 18:51 04/21/25 20:33 Diphenhydramine 50mg/Ml Vial IV 04/21/25 18:52 50 mg ONCE ONE Administration Sodium Chloride 1,000 mls @ 999 mls/hr 04/21/25 18:51 04/21/25 20:34 Sod Chlor 0.9% 1000ml Bag IV 04/21/25 19:51 999 mls/hr .Q1H1M ONE Administration Pantoprazole Sodium 80 mg/ 100 mls @ 100 mls/hr 04/21/25 18:51 04/21/25 20:55 Sodium Chloride IV 04/21/25 19:50 100 mls/hr ONCE ONE Administration Methylprednisolone Sodium Succinate 125 mg 04/21/25 18:54 04/21/25 20:43 Methylprednisolone Sod Succ 125mg Vial IV 04/21/25 18:55 125 mg ONCE ONE Administration Morphine Sulfate 4 mg 04/21/25 18:51 04/21/25 20:31 Morphine 4mg/Ml Syringe IV 04/21/25 18:52 4 mg ONCE ONE Administration Morphine Sulfate 4 mg 04/21/25 21:33 Morphine 4mg/Ml Syringe IV 04/21/25 21:34 ONCE ONE Ondansetron HCl 4 mg 04/21/25 18:51 04/21/25 20:38 Ondansetron 4mg/2ml Vial IV 04/21/25 18:52 4 mg ONCE ONE Administration ORDERS Category Date Time Status Type and Screen Stat BBK 04/21/25 20:38 Received Chest XR -- portable [XR chest portable] Stat Exams 04/21/25 18:51 Completed CBC [Complete Blood Count Auto Diff] Stat Lab 04/21/25 20:18 Completed Comprehensive Metabolic Panel Stat Lab 04/21/25 20:18 Results HIV Combo Stat Lab 04/21/25 20:18 Received Hepatitis C Ab Qual. W/ RFX Stat Lab 04/21/25 20:18 Received Lipase Stat Lab 04/21/25 20:18 Results Magnesium Stat Lab 04/21/25 20:18 Results PT INR [Prothrombin Time INR] Stat Lab 04/21/25 20:18 Completed PTT [Activated Partial Thrombo Time] Stat Lab 04/21/25 20:18 Completed Trop I [Troponin I] Stat Lab 04/21/25 20:18 Results Troponin I Q3H Lab 04/21/25 22:00 Ordered Troponin I Q3H Lab 04/22/25 01:00 Ordered Urinalysis and Microscopic Stat Lab 04/21/25 18:37 Completed Medical Decision Narrative: patient is a 44-year-old female presenting to the emergency department for evaluation of abdominal pain, vomiting with blood. Patient is hemodynamically stable and nontoxic-appearing upon arrival, afebrile. Differential diagnosis includes pancreatitis flare, hematemesis, viral, GI bleed, among others. Workup will be conducted with hematologic labs, specific imaging. Initial inventions include crystalloid bolus, analgesics. We will pretty medicate patient with Solu-Medrol, Protonix, Benadryl as she is allergic to iodine and contrast media. Patient has anaphylaxis to contrast media. This was discussed with Dr. Tate and we chose not to scan her since she has a GI bleed and we will likely need to scope her. I talked to Dr. Oh about admitting patient to scope her and he is agreeable to admit her and scope her in the morning at 7:30 AM. Patient will be n.p.o. after midnight. I will wait for labs to result before I call hospitalist for admission. Patient's labs are back, White count was 5, H&H are stable 12 and 37 electrolytes are normal AST ALT are normal and normal kidney function. Patient is stable at this time. Baljeet has evaluated patient here in the ED. And agrees to admit patient. She will have scope in the morning. Procedure: Procedure performed was ultrasound-guided IV placement. Procedure performed by Colt Tate. Using real-time ultrasound guidance the left brachial vein was cannulated with a long peripheral 18 gauge IV. The vessel cannulated was patent. Images were not saved to permanent archive. Patient tolerated the procedure well. There were no immediate complications. Colt Tate MD: I was consulted by the MERCED[facility], and we discussed the complexity of the problems being addressed. I approved the treatment and management plan for this patient's care in the emergency department, thus performing a substantive portion of the medical decision making. Critical Care <Anuradha De Luna (ED), CHIEF REVENUE OFFICER - Last Filed: 04/21/25 21:37> Critical Care Time Critical Care Time: No
--- NOTE | 2025-04-21 19:51 | HMH.ITSTN ---
Called ER twice about contrast allergy and status of pre-medicating or changing scan. Patient has anaphylactic reaction. Said they would call back as soon as ER physician came out of room.
[2025-04-21] MEDS: MORPHINE 4MG/ML SYRINGE 4 MG IV ×2 (20:31→21:58)
[2025-04-21] MEDS: 0.9 % SODIUM CHLORIDE 1000ML 1,000 ML 999 ML IV (20:34)
[2025-04-21] MEDS: ACETAMINOPHEN 1,000MG/100ML VIAL 1000 MG IV (20:36)
[2025-04-21] MEDS: ONDANSETRON 4MG/2ML VIAL 4 MG IV (20:38)
[2025-04-21] MEDS: METHYLPREDNISOLONE SOD SUCC 125MG VIAL 125 MG IV (20:43)
[2025-04-21] MEDS: PANTOPRAZOLE SODIUM 80 MG in 0.9 % SODIUM CHLORIDE 100 ML 100 MG IV (20:55)
[2025-04-21 21:15] LABS: Microscopic, Urine URINE MICROSCOPIC (MICROSCOPIC)
[2025-04-21 21:15] LABS: Hematocrit 37.7 % (37.0-47.0); Hemoglobin 12.4 g/dL (12.2-16.2); Immature Granulocytes % 0.2 %; Mean Corpuscular HGB Conc 32.9 g/dL (31.8-35.4); Mean Corpuscular Hemoglobin 30.5 pg (27.0-31.2); Mean Corpuscular Volume 92.6 fl (81-99); Nucleated Red Blood Cells % 0 %; Platelet Count 222 K/mm3 (142-424); Red Blood Count 4.07 M/mm3 (4.20-5.40); Red Cell Distribution Width-SD 45.1 fL; White Blood Count 5.3 K/mm3 (4.8-10.8)
[2025-04-21 21:17] LABS: Bilirubin,Urine Negative (Negative); Color,Urine YELLOW (Yellow); Glucose,Urine (UA) Negative (Negative); Ketones,Urine Negative (Negative); Leukocyte Esterase,Urine Negative (Negative); PH,Urine 6.0 (5.0-8.5); Protein,Urine Negative (Negative); Specific Gravity, Urine 1.025 (1.005-1.030); Urobilinogen,Urine 0.2 EU/dl (0.2)
[2025-04-21 21:25] LABS: Albumin Level 4.8 g/dl (3.5-5.0); Chloride 107 mmol/L (98-107); Potassium 3.6 mmoL/L (3.5-5.1); Sodium 143 mmol/L (136-145)
[2025-04-21 21:27] LABS: Calcium Oxalate Crystals,Urine 1+ /lpf
[2025-04-21 21:27] LABS: Blood Urea Nitrogen 16 mg/dl (7-17); Creatinine Clearance Estimated 139 mL/min (50-200); Creatinine,Serum 0.70 mg/dl (0.52-1.04); Estimated Glomerular Filt Rate 90 ml/min (>60); GFR (African American) 109 ML/MIN (>60)
[2025-04-21 21:28] LABS: Alanine Aminotransferase 18 U/L (12-78); Albumin/Globulin Ratio 1.5 (1.1-1.8); Alkaline Phosphatase 91 U/L (38-126); Anion Gap 14.6 mEq/L (5-15); Aspartate Amino Transferase 27 U/L (14-36); Bilirubin,Total 0.4 mg/dl (0.2-1.3); Calcium 9.2 mg/dl (8.4-10.2); Carbon Dioxide 25 mmol/L (22.0-30.0); Globulin 3.1 g/dL (1.3-3.2); Glucose 86 mg/dl (74-100); Lipase 43 U/L (23-300); Magnesium 2.0 mg/dl (1.6-2.3); Total Protein,Serum 7.9 g/dl (6.3-8.2)
[2025-04-21 21:30] LABS: Activated Partial Thrombo Time 23.3 seconds (22.8-30.6); INR 0.96 (0.9-1.1); Prothrombin Time 10.7 seconds (10.1-12.5)
[2025-04-21 21:43] LABS: Troponin I < 0.01 ng/ml (0.00-0.034)
--- NOTE | 2025-04-21 21:55 | P.HP_ITS ---
<Statement entered by Cruz Romero MD - 04/28/25 15:54> Agree with plan of care as outlined by the NEGOTIATIONS DIRECTOR. History of Present Illness *Admission Date: 04/21/25 *Reason for visit:: Abdominal pain *History of present illness: This is a 44-year-old female with past medical history significant for chronic pancreatitis, left plan placement, chronic pancreatic insufficiency, chronic opioid therapy, neuropathy, and obesity who presents with a chief compl aint of abdominal pain and vomiting specks of blood. Due to patient's symptoms, she presented to the emergency room for ration. While in the emergency room, patient's lab values were unremarkable patient's case was discussed with on-call GI specialist who recommended admission for upper endoscopy. As a result, hospital medicine was consulted for further management. During my evaluation of the patient, patient states that she started to have specks of blood early this morning in her emesis. Over the course of the day, the bleeding increased. As a result, she came into the emergency room for evaluation. She also reports having mid abdominal pain that radiates to the right back. She was recently admitted for pancreatitis and had similar findings. She reports her last endoscopy (EGD/colonoscopy) was in December of this year performed by her specialist in [place]. She was informed that she had 2 bleeding spots-patient states GI specialist was not specific on the bleeding areas. When asked, patient states she does not know if she has esophageal varices. She is currently tearful and complaining 10 out of 10 abdominal pain. She denied any chest pain, lightheadedness, dizziness, melena stools, hematochezia, hematuria, shortness of breath, dyspnea, headache, or diarrhea. Chest x-ray was negative for any acute cardiopulmonary process. It is worth mentioning that patient states she is on chronic medication for GERD to include PPI and H2 inhibitor therapy. [facility] Disclaimer: The information contained in this section may have been updated after the patient was seen, as this information can be updated by other users. Medical History (Updated 04/21/25 @ 22:06 by Baljeet Lopes APRN) Insect bite Social History Smoking Status: Never smoker alcohol intake: never substance use type: denies use current occupational status: other Travel in the last 8 weeks?: None household members: family housing: house Have you lived/traveled outside US in past 30 days?: No Contact w/someone who lives/traveled outside US past 30 days?: No Exposure to someone with infectious disease in past 14 days?: No Do you have a fever (greater than 100.4 F or 38 C)?: No Have you tested positive for COVID-19?: No Exposed to someone with COVID-19 in past 14 days?: No Do you have a sore throat?: No Do you have a cough?: No Do you have any weakness?: No Do you have any diarrhea?: No Are you experiencing any unusual bleeding?: No Do you have any muscle aches/pain?: No Do you have any abdominal pain?: No Are you experiencing loss of taste or smell?: No Other Medical History Have you received the Flu Vaccine for this season: No Have you received the Pneumonia Vaccine: No Review of Systems Review of Systems Review of systems:: pertinent systems reviewed and negative unless documented below Constitutional Constitutional: Reports system reviewed and no additional complaints, except as documented Eyes Eyes: Reports system reviewed and no additional complaints, except as documented ENT Ears, Nose, Mouth, and Throat: Reports system reviewed and no additional complaints, except as documented *Cardiovascular Cardiovascular: Reports system reviewed and no additional complaints, except as documented *Respiratory Respiratory: Reports system reviewed and no additional complaints, except as documented *Gastrointestinal Gastrointestinal: Reports abdominal pain and Reports hematemesis *Genitourinary Genitourinary: Reports system reviewed and no additional complaints, except as documented *Musculoskeletal Musculoskeletal: Reports system reviewed and no additional complaints, except as documented Integumentary/Breasts Skin/Breast: Reports system reviewed and no additional complaints, except as documented *Neurologic Neurologic: Reports system reviewed and no additional complaints, except as documented Psychiatric Psychiatric: Reports system reviewed and no additional complaints, except as documented Endocrine Endocrine: Reports system reviewed and no additional complaints, except as documented Hematologic/Lymphatic Hematologic/Lymphatic: Reports system reviewed and no additional complaints, except as documented Allergic/Immunologic Allergic/Immunologic: Reports system reviewed and no additional complaints, except as documented Meds Home Medications and Allergies Home Medications ?Medication ?Instructions ?Recorded ?Confirmed ?Type epinephrine 0.3 mg/0.3 mL 0.3 mg (0.3 mL) IM Q5-15M AK N 05/16/21 04/15/25 Rx injection, auto-injector (EpiPen anaphylaxis #2 ea 2-Luis) pantoprazole 40 mg tablet,delayed 40 mg PO DAILY #30 t abs 05/15/24 04/15/25 Rx release promethazine 25 mg tablet 25 mg PO Q6H PRN nausea and 05/15/24 04/15/25 Rx vomiting #12 tabs scopolamine base 1 mg over 3 days 1 patch transdermal 2XW 04/04/25 04/15/25 History transdermal patch tizanidine 4 mg tablet 4 mg PO Q6H PRN Pain (Scale Score 04/04/25 04/15/25 History 4-6) acetaminophen 300 mg-codeine 30 mg 1 tab PO QID 04/15/25 History tablet amlodipine 5 mg tablet 5 mg PO BID 04/15/25 5 History cyclobenzaprine 10 mg tablet 10 mg PO HS 04/15/2503/22 History losartan 100 mg tablet 100 mg PO DAILY 04/15/25 History pregabalin 200 mg capsule 200 mg PO BID 04/15/2504/15 History hydrocodone 5 mg-acetaminophen 325 1 tab PO Q4H PRN pa in 3 days #15 04/16/25 Rx mg tablet tabs sucralfate 1 gram tablet 1 g PO ACHS 30 days #120 tab s 04/16/25 Rx New Prescriptions to Start Prescriptions: Allergies Allergy/AdvReac Type Severity Reaction Status Date / Time Iodinated Contrast Media Allergy Severe Anaphylaxis Verified 04/04/25 11:27 (IODINATED CONTRAST MEDIA - IV DYE) codeine (CODEINE) Allergy Unknown SWELLING Verified 04/04/25 11:27 iodine (IODINE) Allergy Unknown Anaphylaxis Verified 04/04/25 11:27 loperamide (LOPERAMIDE) Allergy Unknown Rash Verified 04/04/25 11:27 shellfish derived (From Allergy Unknown SWELLING Verified 04/04/25 11:27 SHELLFISH (FOOD/DRUG)) ketorolac (From Toradol) Allergy Difficulty Verified 04/15/25 14:01 Breathing Exam Data for Last 24 hours Vital signs and Labs for Last 24 Hours: Temp Pulse Resp BP Pulse Ox O2 Del Method 98.6 F 102 H 14 147/98 H 98 Room Air 04/21/25 18:44 04/21/25 21:00 04/21/25 21:00 04/21/25 21:00 04/21/25 21:00 04/21/25 18:44 Laboratory Results - last 24 hr 04/21/25 18:37: Urine Color Yellow, Urine Appearance Clear, Urine pH 6.0, Ur Specific [place] 1.025, Urine Protein Negative, Urine Glucose (UA) Negative, Urine Ketones Negative, Urine Blood Negative, Urine Nitrate Negative, Urine Bilirubin Negative, Urine Urobilinogen 0.2, Ur Leukocyte Esterase Negative, Urine RBC None, Urine WBC None, Ur Squamous Epith Cells None, Calcium Oxalate Crystal 1+, Urine Bacteria None 04/21/25 20:18: WBC 5.3, RBC 4.07 L, Hgb 12.4, Hct 37.7, MCV 92.6, MCH 30.5, MCHC 32.9, RDW 13.3, Plt Count 222, MPV 9.5, Neut % (Auto) 51.6, Lymph % (Auto) 40.1, [place] % (Auto) 6.2, Eos % (Auto) 1.1, Baso % (Auto) 0.8, Neut # (Auto) 2.7, Lymph # (Auto) 2.1, [place] # (Auto) 0.3, Eos # (Auto) 0.1, Baso # (Auto) 0.0, PT 10.7, INR 0.96, APTT 23.3, Sodium 143, Potassium 3.6, Chloride 107, Carbon Dioxide 25, Anion Gap 14.6, BUN 16, Creatinine 0.70, Estimated Creat Clear 139, Estimated GFR 90, Est GFR ( Amer) 109, Glucose 86, Calcium 9.2, Magnesium 2.0, Total Bilirubin 0.4, AST 27, ALT 18, Alkaline Phosphatase 91, Troponin I < 0.01, Total Protein 7.9, Albumin 4.8, Globulin 3.1, Albumin/Globulin Ratio 1.5, Lipase 43 I & O for Last 24 hours: Intake & Output 04/18/25 04/19/25 04/20/25 04/21/25 23:59 23:59 23:59 23:59 Weight 87.543 kg Constitutional Constitutional: no acute distress, obese and cooperative *Routine HEENT Exam Head: Present normocephalic and atraumatic Eye: Present EOMI and PERRL ENT: Present mucous membranes moist and mucous membranes dry *Routine Neck Exam Neck: Present supple, full ROM and trachea midline *Routine Respiratory Exam Respiratory: Present CTA bilaterally, normal respiratory effort, able to speak in complete sentences and symmetric chest movement *Routine Cardiovascular Exam Cardiovascular: Present RRR, Normal S1 and Normal S2 *Routine Abdominal Exam Abdominal: Present soft, normoactive bowel sounds, tenderness and obese *Routine Rectal Exam Rectal:: deferred *Routine Genitalia Exam Genitalia:: deferred *Routine Extremities Exam Extremities: Present pulses intact and normal capillary refill Routine Back/Spine/Pelvis Exam Back/Spine: Present full ROM *Routine Skin Exam Skin: Present dry, warm and normal turgor *Routine Neurological Exam Neurological: Present alert, oriented X3 and CN II-XII intact Routine Psychiatric Exam Psychiatric: Present normal affect, normal thought process and anxious H&P: Result Impressions 44-year-old female who has a known history of hematemesis and chronic pancreatitis presents with bright red blood in her emesis. Patient currently has stable hemoglobin and hematocrit. Assessment and Plan *Assessment and plan (1) GI bleed: Status: Acute Qualifiers: GI bleed type/associated pathology: unspecified gastrointestinal hemorrhage type Qualified Code(s): K92.2 - Gastrointestinal hemorrhage, unspecified Category: Medical Code(s): K92.2 - Gastrointestinal hemorrhage, unspecified (2) Hematemesis: Status: Acute Qualifiers: Nausea presence: with nausea Qualified Code(s): K92.0 - Hematemesis Category: Medical Code(s): K92.0 - Hematemesis (3) Chronic pancreatitis: Status: Acute Qualifiers: Pancreatitis type: unspecified pancreatitis type Qualified Code(s): K86.1 - Other chronic pancreatitis Category: Medical Code(s): K86.1 - Other chronic pancreatitis (4) Chronic abdominal pain: Status: Acute Category: Medical Code(s): R10.9 - Unspecified abdominal pain; G89.29 - Other chronic pain Plan Assessment: GIB: Most likely upper Hematemesis Chronic pancreatitis Chronic abdominal pain - Patient's hemoglobin hematocrit are stable - She received 80 mg of Protonix IV; will continue 40 mg IV twice daily - Will give patient some Carafate 1 g ACHS p.o. - Consult Dr. Oh Plan: Admit patient to the MedSur unit on telemetry Daily weight SCDs to bilateral lower extremities Saline lock Vital signs every 4 hours Clear liquid diet now with no reds and then n.p.o. after midnight CBC/CMP daily 5 mg [place] p.o. every 4 hours PMR pain 0.5 mg hydromorphone IV push every 4 hours as needed severe pain Grams of promethazine IV every 6 hours as needed nausea and vomiting Full code All discussed this case with attending physician Dr. Romero and a look forward to more input
[2025-04-21 22:25] LABS: Hepatitis C Ab Qual. W/ RFX NEGATIVE (Negative)
--- NOTE | 2025-04-21 22:43 | PC.NURSE ---
Report called to Yissel RODRIGES on [facility]
--- NOTE | 2025-04-21 23:10 | PC.NURSE ---
Patient arrived to floor via stretcher from ED at 23:02.
[2025-04-21] MEDS: HYDROMORPHONE 2MG/ML SYRINGE 0.5 MG IV (23:33)
[2025-04-21] MEDS: PROMETHAZINE HCL 25MG/ML 1ML VIAL 25 MG IV (23:33)
[2025-04-21] MEDS: SODIUM CHLORIDE 0.9% 25ML BAG 25 ML IV (23:33)
[2025-04-22] VITALS (11 sets, daily range): BP systolic 111–150; BP diastolic 64–92; PULSE 89–100; RESP 16–18; TEMP 36.3–36.9; O2SAT 93–99; BMI 32.1
[2025-04-22] MEDS: HYDROCODONE/APAP 5/325 MG TABLET 1 TAB PO ×3 (00:55→14:52)
[2025-04-22] MEDS: HYDROMORPHONE 2MG/ML SYRINGE 0.5 MG IV ×4 (04:39→22:40)
[2025-04-22] MEDS: ONDANSETRON 4MG/2ML VIAL 4 MG IV ×2 (04:40→14:47)
[2025-04-22 04:56] LABS: POC Glucose,Bedside 151 gm/dL (70-110)
[2025-04-22] MEDS: SUCRALFATE 1GM/10ML SUSP UDC 1 GM PO ×2 (05:54→10:46)
--- NOTE | 2025-04-22 07:09 | EXP.GE.CONS ---
History of Present Illness *Admission Date: 04/21/25 *Reason for visit:: Hematemesis *History of present illness: Mrs. Barber is a 44-year-old female with chronic pancreatitis and chronic persistent nausea and vomiting. She started having specks of hematemesis towards the end of January 2025 and did have evaluation by GI specialist in [place] where she lives. She had an EGD and colonoscopy in December. She was told that there were 2 spots that were bleeding but she does not have the reports. The patient reports epigastric abdominal pain daily that radiates around into the left side. The patient does state that she was having hematemesis that increased to more bright red and maroon blood yesterday around 2 PM. The patient reports no melanotic stools. She came to the ED and had CT scan of the abdomen and labs. Her lab work showed hemoglobin 12.4 and hematocrit 37.7 which may have been a little hemoconcentrated and her hemoglobin hematocrit were lower on 04/16 (11.2 and 34.3). She does have normocytic indices. The patient's chemistries showed normal lipase 43, AST 27, ALT 18 and alkaline phosphatase 91. Her total bilirubin was 0.4. She had normal BUN and creatinine of 16 and 0.7. The patient does see a pain specialist and is on Tylenol 3/opiates [address] scan of the abdomen showed marked fecal retention/obstipation. No comment was made on the pancreas but my review shows no calcific pancreatitis or dilation of the pancreatic duct. There was no biliary ductal dilation. There was possible mesenteric lymphadenitis. The patient does have a history of a gastric sleeve surgery. She is not on any NSAIDs or anticoagulation. She reports chronic constipation. The patient does take Phenergan and scopolamine patches for her intractable nausea. She had tried pancreatic digestive enzyme replacement (Creon, Pancreaze and Zenpep) and all of these were stopped. The patient reports some bloating but no belching or gassiness. She reports early satiety. [facility] Disclaimer: The information contained in this section may have been updated after the patient was seen, as this information can be updated by other users. Medical History (Updated 04/22/25 @ 07:17 by Noam Oh II, MD) Insect bite Social History (Updated 04/21/25 @ 23:15 by Verito Malik RN) Smoking Status: Never smoker alcohol intake: never substance use type: denies use current occupational status: other Travel in the last 8 weeks?: Inside the [place] household members: family housing: house Have you lived/traveled outside US in past 30 days?: No Contact w/someone who lives/traveled outside US past 30 days?: No Exposure to someone with infectious disease in past 14 days?: No Do you have a fever (greater than 100.4 F or 38 C)?: No Have you tested positive for COVID-19?: No Exposed to someone with COVID-19 in past 14 days?: No Do you have a sore throat?: No Do you have a cough?: No Do you have any weakness?: No Are you experiencing any nausea/vomitting?: No Do you have any diarrhea?: No Are you experiencing any unusual bleeding?: No Do you have any muscle aches/pain?: No Do you have any abdominal pain?: No Are you experiencing loss of taste or smell?: No Review of Systems *Neurologic Neurologic: Reports system reviewed and no additional complaints, except as documented Meds Home Medications and Allergies Home Medications ?Medication ?Instructions ?Recorded ?Confirmed ?Type epinephrine 0.3 mg/0.3 mL 0.3 mg (0.3 mL) IM Q5-15M PRN 05/16/21 04/22/25 Rx injection, auto-injector (EpiPen anaphylaxis #2 ea 2-Luis) pantoprazole 40 mg tablet,delayed 40 mg PO DAILY #30 tabs 05/15/24 04/22/25 Rx release promethazine 25 mg tablet 25 mg PO Q6H PRN nausea and 05/15/24 04/22/25 Rx vomiting #12 tabs scopolamine base 1 mg over 3 days 1 patch transdermal 2XW 04/04/25 04/22/25 History transdermal patch tizanidine 4 mg tablet 4 mg PO Q6H PRN Pain (Scale Score 04/04/25 04/22/25 History 4-6) acetaminophen 300 mg-codeine 30 mg 1 tab PO QID 04/15/25 04/22/25 History tablet amlodipine 5 mg tablet 5 mg PO BID 04/15/25 04/22/25 History cyclobenzaprine 10 mg tablet 10 mg PO HS 04/15/25 04/22/25 History losartan 100 mg tablet 100 mg PO DAILY 04/15/25 04/22/25 History pregabalin 200 mg capsule 200 mg PO BID 04/15/25 04/22/25 History hydrocodone 5 mg-acetaminophen 325 1 tab PO Q4H PRN pain 3 days #15 04/16/25 04/22/25 Rx mg tablet tabs sucralfate 1 gram tablet 1 g PO ACHS 30 days #120 tabs 04/16/25 04/22/25 Rx New Prescriptions to Start Prescriptions: Allergies Allergy/AdvReac Type Severity Reaction Status Date / Time Iodinated Contrast Media Allergy Severe Anaphylaxis Verified 04/04/25 11:27 (IODINATED CONTRAST MEDIA - IV DYE) codeine (CODEINE) Allergy Unknown SWELLING Verified 04/04/25 11:27 iodine (IODINE) Allergy Unknown Anaphylaxis Verified 04/04/25 11:27 loperamide (LOPERAMIDE) Allergy Unknown Rash Verified 04/04/25 11:27 shellfish derived (From Allergy Unknown SWELLING Verified 04/04/25 11:27 SHELLFISH (FOOD/DRUG)) ketorolac (From Toradol) Allergy Difficulty Verified 04/15/25 14:01 Breathing Exam (Inpt) Vital signs and Labs for Last 24 Hours: Temp Pulse Resp BP Pulse Ox O2 Del Method 97.5 F L 89 16 129/79 93 L Room Air 04/22/25 04:00 04/22/25 04:00 04/22/25 04:00 04/22/25 04:00 04/22/25 04:00 04/22/25 06:29 Laboratory Results - last 24 hr 04/21/25 18:37: Urine Color Yellow, Urine Appearance Clear, Urine pH 6.0, Ur Specific [place] 1.025, Urine Protein Negative, Urine Glucose (UA) Negative, Urine Ketones Negative, Urine Blood Negative, Urine Nitrate Negative, Urine Bilirubin Negative, Urine Urobilinogen 0.2, Ur Leukocyte Esterase Negative, Urine RBC None, Urine WBC None, Ur Squamous Epith Cells None, Calcium Oxalate Crystal 1+, Urine Bacteria None 04/21/25 20:18: WBC 5.3, RBC 4.07 L, Hgb 12.4, Hct 37.7, MCV 92.6, MCH 30.5, MCHC 32.9, RDW 13.3, Plt Count 222, MPV 9.5, Neut % (Auto) 51.6, Lymph % (Auto) 40.1, [place] % (Auto) 6.2, Eos % (Auto) 1.1, Baso % (Auto) 0.8, Neut # (Auto) 2.7, Lymph # (Auto) 2.1, [place] # (Auto) 0.3, Eos # (Auto) 0.1, Baso # (Auto) 0.0, PT 10.7, INR 0.96, APTT 23.3, Sodium 143, Potassium 3.6, Chloride 107, Carbon Dioxide 25, Anion Gap 14.6, BUN 16, Creatinine 0.70, Estimated Creat Clear 139, Estimated GFR 90, Est GFR ( Amer) 109, Glucose 86, Calcium 9.2, Magnesium 2.0, Total Bilirubin 0.4, AST 27, ALT 18, Alkaline Phosphatase 91, Troponin I < 0.01, Total Protein 7.9, Albumin 4.8, Globulin 3.1, Albumin/Globulin Ratio 1.5, Lipase 43, HCV Ab JESSICA w/Rflx PCR Qn Negative, HIV Ag/Ab Combo Qual Negative 04/21/25 20:38: Blood Type A Negative, Antibody Screen Negative 04/22/25 04:50: POC Glucose 151 H I & O for Labs for Last 24 Hours: Intake & Output 04/19/25 04/20/25 04/21/25 04/22/25 23:59 23:59 23:59 23:59 Intake Total 100 / 100 Output Total 0 / 0 Balance 100 / 100 0 / 0 Weight 193 lb 192 lb 15.988 oz Comments:: Normoactive bowel sounds, soft, mild gaseous distention with tenderness in the epigastrium, no rebound or guarding, no masses, palpable stool and gas in the lower quadrants Results Labs 04/21/25 20:18 04/21/25 20:18 Labs: Laboratory Results - last 24 hr 04/21/25 18:37: Urine Color Yellow, Urine Appearance Clear, Urine pH 6.0, Ur Specific [place] 1.025, Urine Protein Negative, Urine Glucose (UA) Negative, Urine Ketones Negative, Urine Blood Negative, Urine Nitrate Negative, Urine Bilirubin Negative, Urine Urobilinogen 0.2, Ur Leukocyte Esterase Negative, Urine RBC None, Urine WBC None, Ur Squamous Epith Cells None, Calcium Oxalate Crystal 1+, Urine Bacteria None 04/21/25 20:18: WBC 5.3, RBC 4.07 L, Hgb 12.4, Hct 37.7, MCV 92.6, MCH 30.5, MCHC 32.9, RDW 13.3, Plt Count 222, MPV 9.5, Neut % (Auto) 51.6, Lymph % (Auto) 40.1, [place] % (Auto) 6.2, Eos % (Auto) 1.1, Baso % (Auto) 0.8, Neut # (Auto) 2.7, Lymph # (Auto) 2.1, [place] # (Auto) 0.3, Eos # (Auto) 0.1, Baso # (Auto) 0.0, PT 10.7, INR 0.96, APTT 23.3, Sodium 143, Potassium 3.6, Chloride 107, Carbon Dioxide 25, Anion Gap 14.6, BUN 16, Creatinine 0.70, Estimated Creat Clear 139, Estimated GFR 90, Est GFR ( Amer) 109, Glucose 86, Calcium 9.2, Magnesium 2.0, Total Bilirubin 0.4, AST 27, ALT 18, Alkaline Phosphatase 91, Troponin I < 0.01, Total Protein 7.9, Albumin 4.8, Globulin 3.1, Albumin/Globulin Ratio 1.5, Lipase 43, HCV Ab JESSICA w/Rflx PCR Qn Negative, HIV Ag/Ab Combo Qual Negative 04/21/25 20:38: Blood Type A Negative, Antibody Screen Negative 04/22/25 04:50: POC Glucose 151 H Assessment and Plan *Assessment and plan (1) Hematemesis: Status: Acute Qualifiers: Nausea presence: with nausea Qualified Code(s): K92.0 - Hematemesis Category: Medical Code(s): K92.0 - Hematemesis (2) Abdominal pain, epigastric: Status: Acute Category: Medical Code(s): R10.13 - Epigastric pain (3) Mesenteric adenitis: Status: Acute Category: Medical Code(s): I88.0 - Nonspecific mesenteric lymphadenitis (4) Atrophic pancreas: Status: Acute Category: Medical Code(s): K86.89 - Other specified diseases of pancreas (5) Chronic pancreatitis: Status: Acute Qualifiers: Pancreatitis type: unspecified pancreatitis type Qualified Code(s): K86.1 - Other chronic pancreatitis Category: Medical Code(s): K86.1 - Other chronic pancreatitis (6) Nausea and vomiting: Status: Acute Category: Medical Code(s): R11.2 - Nausea with vomiting, unspecified (7) Opioid-induced constipation: Status: Acute Category: Medical Code(s): K59.03 - Drug induced constipation; T40.2X5A - Adverse effect of other opioids, initial encounter Plan 1. Hematemesis. She has not had any melena and her hemoglobin/hematocrit did not decline. The patient is not on any NSAIDs or anticoagulation. This may represent a Albina-Isabel tear from her hematemesis. We will plan EGD today to evaluate further. 2. Chronic intractable nausea and vomiting. She does have associated epigastric abdominal pain. This presumably is secondary to chronic pancreatitis although her CAT scan does not show calcific pancreatitis. She does state that she had a pancreatic stent placed many years ago. The patient is followed by pain management. I would recommend resuming a pancreatic digestive enzyme (Creon) to see if this may help with the nausea but also consider other agents (i.e. metoclopramide). 3. Chronic opioid-induced constipation. I do feel that this may be playing some role with her nausea and vomiting and she had a marked amount of fecal retention on her CAT scan. I would recommend Relistor or Movantik.
--- NOTE | 2025-04-22 07:27 | EXP.ANES.CKL ---
[facility] Disclaimer: The information contained in this section may have been updated after the patient was seen, as this information can be updated by other users. Medical History Insect bite Social History Smoking Status: Never smoker alcohol intake: never substance use type: denies use current occupational status: other Travel in the last 8 weeks?: Inside the [place] household members: family housing: house Have you lived/traveled outside US in past 30 days?: No Contact w/someone who lives/traveled outside US past 30 days?: No Exposure to someone with infectious disease in past 14 days?: No Do you have a fever (greater than 100.4 F or 38 C)?: No Have you tested positive for COVID-19?: No Exposed to someone with COVID-19 in past 14 days?: No Do you have a sore throat?: No Do you have a cough?: No Do you have any weakness?: No Are you experiencing any nausea/vomitting?: No Do you have any diarrhea?: No Are you experiencing any unusual bleeding?: No Do you have any muscle aches/pain?: No Do you have any abdominal pain?: No Are you experiencing loss of taste or smell?: No [facility] Anesthesia Checklist Patient Identification Patient Identification: Arm Band and Verbal (Name & ) Structural Data Admitted From: Inpatient Planned Operative Procedure/s: EGD Consent for Planned Operative Procedure(s) Verified: Yes Verified Documents: Surgical Consent and History and Physical NPO Status Verified Time NPO: 00:00 Additional verifications Patient : No Anesthesia Reactions: No Previous Colonoscopy: Yes Airway Assessment Mallampati Score:: Class II Dentition: Good Dentition Neurological Assessment Level of Consciousness: Awake, Alert and Appropriate Hx Seizures: No Numbness or tingling in extremities: No Anesthesia Plan Anesthesia Risk discussed: Yes Anesthesia Plan: Verified ASA Class: II Anesthesia Type: MAC
[2025-04-22 07:31] LABS: Urine Pregnancy, HCG Qual. Negative (Negative)
--- NOTE | 2025-04-22 07:50 | HMH.PROCNOTE ---
[facility] Procedure Note Date: 04/22/25 Time: 07:50 Procedure Note:: Upper Endoscopy Procedure Report: Esophagogastroduodenoscopy with cold biopsies Endoscopost: Noam Oh II, MD Referring Physician: Cruz Romero MD Date of Procedure: April 22, 2025 Equipment: Olympus GIF-1100 standard upper endoscope Sedation: MAC sedation Indications: Mrs. Barber is a 44-year-old inpatient female who is here this morning for diagnostic EGD secondary to hematemesis. The patient does have chronic pancreatitis and chronic persistent nausea and vomiting. She started having specks of hematemesis towards the end of January 2025 and did have evaluation by GI specialist in [place] where she lives. She had an EGD and colonoscopy in December. She was told that there were 2 spots that were bleeding but she does not have the reports. The patient reports epigastric abdominal pain daily that radiates around into the left side. The patient does state that she was having hematemesis that increased to more bright red and maroon blood yesterday around 2 PM. The patient reports no melanotic stools. She came to the ED and had CT scan of the abdomen and labs. Her lab work showed hemoglobin 12.4 and hematocrit 37.7 which may have been a little hemoconcentrated and her hemoglobin hematocrit were lower on 04/16 (11.2 and 34.3). She does have normocytic indices. The patient's chemistries showed normal lipase 43, AST 27, ALT 18 and alkaline phosphatase 91. Her total bilirubin was 0.4. She had normal BUN and creatinine of 16 and 0.7. The patient does see a pain specialist and is on Tylenol 3/opiates [address] scan of the abdomen showed marked fecal retention/obstipation. No comment was made on the pancreas but my review shows no calcific pancreatitis or dilation of the pancreatic duct. There was no biliary ductal dilation. There was possible mesenteric lymphadenitis. The patient does have a history of a gastric sleeve surgery. She is not on any NSAIDs or anticoagulation. She reports chronic constipation. The patient does take Phenergan and scopolamine patches for her intractable nausea. She had tried pancreatic digestive enzyme replacement (Creon, Pancreaze and Zenpep) and all of these were stopped. The patient reports some bloating but no belching or gassiness. She reports early satiety. Procedure: Prior to the procedure, a history and physical exam was performed, and patient's medications and allergies were reviewed. The risks, benefits and alternatives of the sedation and procedure were discussed with the patient. All questions were answered and informed consent was obtained. The patient was brought to the procedure room. Patient identification and proposed procedure were verified by the physician and the nurse. The patient was placed in a left lateral decubitus position and the scope was passed under direct vision. Throughout the procedure, the patient's blood pressure, pulse, and oxygen saturations were monitored continuously. The upper GI endoscopy was accomplished without difficulty. The patient tolerated the procedure well. Findings: The scope was passed directly into the upper esophagus and advanced to the third portion of the duodenum. The post bulbar duodenum, ampulla and duodenal bulb were normal with normal mucosa and conniventes. There were no ulcerations or erosions. 2 biopsies were taken from the second portion of the duodenum for the disaccharidase assay. The scope was withdrawn through a normal duodenal bulb and pylorus into the stomach. There was marked bile reflux with moderate linear reactive gastropathy of the antrum and body of the stomach. Cold biopsies were obtained. There were no ulcerations or erosions. There were no AVMs, dieulafoy or other bleeding abnormalities. The GE junction was inspected carefully and there was no evidence of a Albina-Isabel tear. There was no hiatal hernia. There was gastric sleeve anatomy with reduced luminal diameter of the stomach. The scope was then withdrawn into the esophagus. There was no evidence of esophageal varices or reflux esophagitis and the remainder of the esophageal mucosa was normal. Impression: 1. Bile reflux with moderate reactive gastropathy 2. Gastric sleeve anatomy Plan: There was no upper GI identified bleeding lesions. I did inspect the pharynx and there was no areas of bleeding from the pharynx. The patient did not have a significant decline in her hemoglobin/hematocrit. Uncertain of etiology and patient reports having specks of hematemesis since January. More broadly, the patient suffers from nausea and vomiting and would recommend metoclopramide and Creon which have been started. I would also recommend treatment of her opioid-induced constipation with Relistor as an outpatient. I will electronically send this to the pharmacy. I will also presently place her on sucralfate short-term. The patient is going back to [place] but plans to move back to [facility] in 2 to 3 months. She will need to reestablish at that time.
[2025-04-22] MEDS: PROMETHAZINE HCL 25MG/ML 1ML VIAL 25 MG IV ×2 (08:25→22:38)
[2025-04-22] MEDS: PANTOPRAZOLE 40MG VIAL 40 MG IV ×2 (08:32→20:43)
[2025-04-22] MEDS: LIPASE/PROTEASE/AMYLASE 1 EACH CAPSULE.DR 2 EACH PO ×2 (10:46→16:54)
[2025-04-22] MEDS: METOCLOPRAMIDE 10MG TABLET 10 MG PO ×3 (10:46→20:43)
--- NOTE | 2025-04-22 12:12 | P.PN_ITS ---
Subjective *Date: 04/22/25 *Time: 14:29 Interval history: No GI bleed noted on EGD today. Patient continues to have nausea/vomiting, poor tolerance to food, and epigastric abdominal pain. Much of this is chronic, however given nausea/vomiting with hematemesis on presentation will follow-up with gastric emptying study in the morning gastroparesis. Will need close follow-up with gastric bypass surgeon. On discharge Exam Data for Last 24 hours Vital signs and Labs for Last 24 Hours: Temp Pulse Resp BP Pulse Ox O2 Del Method 97.4 F L 96 H 16 134/80 97 Room Air 04/22/25 08:11 04/22/25 08:11 04/22/25 08:11 04/22/25 08:11 04/22/25 08:11 04/22/25 08:11 Laboratory Results - last 24 hr 04/21/25 18:37: Urine Color Yellow, Urine Appearance Clear, Urine pH 6.0, Ur Specific [place] 1.025, Urine Protein Negative, Urine Glucose (UA) Negative, Urine Ketones Negative, Urine Blood Negative, Urine Nitrate Negative, Urine Bilirubin Negative, Urine Urobilinogen 0.2, Ur Leukocyte Esterase Negative, Urine RBC None, Urine WBC None, Ur Squamous Epith Cells None, Calcium Oxalate Crystal 1+, Urine Bacteria None 04/21/25 20:18: WBC 5.3, RBC 4.07 L, Hgb 12.4, Hct 37.7, MCV 92.6, MCH 30.5, MCHC 32.9, RDW 13.3, Plt Count 222, MPV 9.5, Neut % (Auto) 51.6, Lymph % (Auto) 40.1, [place] % (Auto) 6.2, Eos % (Auto) 1.1, Baso % (Auto) 0.8, Neut # (Auto) 2.7, Lymph # (Auto) 2.1, [place] # (Auto) 0.3, Eos # (Auto) 0.1, Baso # (Auto) 0.0, PT 10.7, INR 0.96, APTT 23.3, Sodium 143, Potassium 3.6, Chloride 107, Carbon Dioxide 25, Anion Gap 14.6, BUN 16, Creatinine 0.70, Estimated Creat Clear 139, Estimated GFR 90, Est GFR ( Amer) 109, Glucose 86, Calcium 9.2, Magnesium 2.0, Total Bilirubin 0.4, AST 27, ALT 18, Alkaline Phosphatase 91, Troponin I < 0.01, Total Protein 7.9, Albumin 4.8, Globulin 3.1, Albumin/Globulin Ratio 1.5, Lipase 43, HCV Ab JESSICA w/Rflx PCR Qn Negative, HIV Ag/Ab Combo Qual Negative 04/21/25 20:38: Blood Type A Negative, Antibody Screen Negative 04/22/25 04:50: POC Glucose 151 H 04/22/25 07:18: Urine HCG, Qual Negative I & O for Last 24 hours: Intake & Output 04/19/25 04/20/25 04/21/25 04/22/25 23:59 23:59 23:59 23:59 Intake Total 100 / 100 Output Total 0 / 0 Balance 100 / 100 0 / 0 Weight 87.543 kg 87.543 kg Constitutional Constitutional: no acute distress *Routine HEENT Exam Head: Present normocephalic Eye: Present EOMI and PERRL ENT: Present mucous membranes moist *Routine Neck Exam Neck: Present supple; Absent lymphadenopathy *Routine Respiratory Exam Respiratory: Present CTA bilaterally *Routine Cardiovascular Exam Cardiovascular: Present RRR *Routine Abdominal Exam Abdominal: Present soft, normoactive bowel sounds and tenderness Comments: Mild epigastric tenderness to palpation. *Routine Extremities Exam Extremities: Absent cyanosis, clubbing or edema *Routine Skin Exam Skin: Present warm; Absent rash *Routine Neurological Exam Neurological: Present alert and oriented X3 Assessment and Plan *Assessment and plan (1) Nausea and vomiting: Status: Acute Category: Medical Code(s): R11.2 - Nausea with vomiting, unspecified (2) Hematemesis: Status: Acute Qualifiers: Nausea presence: with nausea Qualified Code(s): K92.0 - Hematemesis Category: Medical Code(s): K92.0 - Hematemesis Plan Kasia Barber is a 44-year-old female who presented with abdominal pain, vomiting specks of blood and was admitted for suspected upper GI bleed. #Hematemesis, resolved #Chronic epigastric abdominal pain #Chronic nausea/vomiting #History of gastric bypass #History of upper GI bleed #Constipation ? Patient presented with 1 day onset of specks of blood with nausea/vomiting. Patient has been having on and off nausea/vomiting for many months, and has had chronic epigastric abdominal pain since gastric bypass surgery 6 years ago. ? Initial hemoglobin 12.4, improved from 11.4 on recent admission to the hospital about a week ago. ? GI consulted, s/p EGD on 04/22/2025 noting only bile reflux with moderate reactive gastropathy, and gastric sleeve anatomy. No signs of GI bleed. ? Patient states he has been having nausea/vomiting for many months, cannot think of a focal trigger. No recent significant medication changes, does not use marijuana, N/V often unrelated to meals. ? Patient states chronic epigastric abdominal pain, and intermittent episodes of nausea/vomiting began shortly after gastric bypass surgery in [facility]. After surgery, she moved to [place] and has not followed up with a surgeon. ? Patient would benefit from close follow-up with gastric bypass surgeon for further evaluation management. Gastric sleeve may need revision, versus other. ? No mesenteric artery stenosis noted on his recent CT abdomen. No calcifications noted on recent CT to suggest classical chronic pancreatitis. Patient states she was told that there there is scar tissue forming around the pancreas since her gastric bypass surgery. ? Will rule out gastroparesis with gastric emptying study in the morning. N.p.o. at midnight. ? GI started scheduled metoclopramide 10 mg ACHS. ? Patient also suffers from chronic constipation, had stool impaction on recent CT within the last week. Ordered MiraLAX, lactulose, mineral oil enema. Follow-up bowel movement. ? Continue [place], Dilaudid for pain control. ? Continue Protonix 40 mg nightly. ? Follow-up morning CBC. #Hypertension ? Hold home amlodipine, losartan as blood pressure stable at this time. Restart when appropriate. Full code DVT prophylaxis: Lovenox 40 mg
[2025-04-22] MEDS: MINERAL OIL ENEMA 133ML 133 ML RC (14:47)
[2025-04-22] MEDS: POLYETHYLENE GLYCOL 3350 17 GM PACKET PO (14:48)
--- NOTE | 2025-04-22 18:38 | PC.NURSE ---
patient has complained of abd pain throughout the day, treated per JUL. Pt tolerated clear liquid diet for lunch and full liquid diet for dinner. Patient will be NPO after midnight in preparation for gastric emptying study in AM. VSS. Call light in reach.
[2025-04-22] MEDS: SODIUM CHLORIDE 0.9% 10ML VIAL 10 ML IV (20:43)
[2025-04-22] MEDS: SODIUM CHLORIDE 0.9% 25ML BAG 25 ML IV (22:38)
[2025-04-23] VITALS: BP 104/51; PULSE 80; PULSE 87; RESP 16; TEMP 36.5; O2SAT 97
[2025-04-23 04:00] VITALS: BP 108/63; PULSE 78; PULSE 81; RESP 16; TEMP 36.9; O2SAT 98; BMI 32.3
[2025-04-23] MEDS: HYDROMORPHONE 2MG/ML SYRINGE 0.5 MG IV ×2 (04:59→10:09)
[2025-04-23] MEDS: LIPASE/PROTEASE/AMYLASE 1 EACH CAPSULE.DR 2 EACH PO ×2 (06:49→11:18)
[2025-04-23] MEDS: METOCLOPRAMIDE 10MG TABLET 10 MG PO ×2 (06:50→11:17)
[2025-04-23 07:53] LABS: Hematocrit 31.1 % (37.0-47.0); Hemoglobin 10.1 g/dL (12.2-16.2); Immature Granulocytes % 0.3 %; Mean Corpuscular HGB Conc 32.5 g/dL (31.8-35.4); Mean Corpuscular Hemoglobin 30.3 pg (27.0-31.2); Mean Corpuscular Volume 93.4 fl (81-99); Nucleated Red Blood Cells % 0 %; Platelet Count 183 K/mm3 (142-424); Red Blood Count 3.33 M/mm3 (4.20-5.40); Red Cell Distribution Width-SD 45.6 fL; White Blood Count 3.5 K/mm3 (4.8-10.8)
[2025-04-23 08:00] VITALS: BP 110/72; PULSE 70; PULSE 84; RESP 15; TEMP 36.4; O2SAT 97
[2025-04-23 08:15] VITALS: O2SAT 97
[2025-04-23 09:08] LABS: Albumin Level 3.3 g/dl (3.5-5.0); Chloride 108 mmol/L (98-107); Potassium 4.0 mmoL/L (3.5-5.1); Sodium 141 mmol/L (136-145)
[2025-04-23 09:11] LABS: Alanine Aminotransferase 17 U/L (12-78); Albumin/Globulin Ratio 1.4 (1.1-1.8); Alkaline Phosphatase 58 U/L (38-126); Anion Gap 12.0 mEq/L (5-15); Aspartate Amino Transferase 18 U/L (14-36); Bilirubin,Total 0.3 mg/dl (0.2-1.3); Blood Urea Nitrogen 14 mg/dl (7-17); Calcium 8.5 mg/dl (8.4-10.2); Carbon Dioxide 25 mmol/L (22.0-30.0); Creatinine Clearance Estimated 163 mL/min (50-200); Creatinine,Serum 0.60 mg/dl (0.52-1.04); Estimated Glomerular Filt Rate 108 ml/min (>60); GFR (African American) 130 ML/MIN (>60); Globulin 2.3 g/dL (1.3-3.2); Glucose 82 mg/dl (74-100); Total Protein,Serum 5.6 g/dl (6.3-8.2)
[2025-04-23] MEDS: ONDANSETRON 4MG/2ML VIAL 4 MG IV (10:10)
--- NOTE | 2025-04-23 11:13 | EXP.DC.SUM ---
General Admission date:: 04/21/25 HPI HPI HPI: Mrs. Barber is a 44-year-old female with chronic pancreatitis and chronic persistent nausea and vomiting. She started having specks of hematemesis towards the end of January 2025 and did have evaluation by GI specialist in [place] where she lives. She had an EGD and colonoscopy in December. She was told that there were 2 spots that were bleeding but she does not have the reports. The patient reports epigastric abdominal pain daily that radiates around into the left side. The patient does state that she was having hematemesis that increased to more bright red and maroon blood yesterday around 2 PM. The patient reports no melanotic stools. She came to the ED and had CT scan of the abdomen and labs. Her lab work showed hemoglobin 12.4 and hematocrit 37.7 which may have been a little hemoconcentrated and her hemoglobin hematocrit were lower on 04/16 (11.2 and 34.3). She does have normocytic indices. The patient's chemistries showed normal lipase 43, AST 27, ALT 18 and alkaline phosphatase 91. Her total bilirubin was 0.4. She had normal BUN and creatinine of 16 and 0.7. The patient does see a pain specialist and is on Tylenol 3/opiates [address] scan of the abdomen showed marked fecal retention/obstipation. No comment was made on the pancreas but my review shows no calcific pancreatitis or dilation of the pancreatic duct. There was no biliary ductal dilation. There was possible mesenteric lymphadenitis. The patient does have a history of a gastric sleeve surgery. She is not on any NSAIDs or anticoagulation. She reports chronic constipation. The patient does take Phenergan and scopolamine patches for her intractable nausea. She had tried pancreatic digestive enzyme replacement (Creon, Pancreaze and Zenpep) and all of these were stopped. The patient reports some bloating but no belching or gassiness. She reports early satiety. Hospital Course Hospital Course Hospital Course: Kasia Barber is a 44-year-old female who presented with abdominal pain, vomiting specks of blood and was admitted for suspected upper GI bleed. #Hematemesis, resolved #Chronic epigastric abdominal pain #Chronic nausea/vomiting #History of gastric bypass #History of upper GI bleed #Constipation ? Patient presented with 1 day onset of specks of blood with nausea/vomiting. Patient has been having on and off nausea/vomiting for many months, and has had chronic epigastric abdominal pain since gastric bypass surgery 6 years ago. ? Initial hemoglobin 12.4, improved from 11.4 on recent admission to the hospital about a week ago. ? GI consulted, s/p EGD on 04/22/2025 noting only bile reflux with moderate reactive gastropathy, and gastric sleeve anatomy. No signs of GI bleed. ? Patient states he has been having nausea/vomiting for many months, cannot think of a focal trigger. No recent significant medication changes, does not use marijuana, N/V often unrelated to meals. ? Patient states chronic epigastric abdominal pain, and intermittent episodes of nausea/vomiting began shortly after gastric bypass surgery in [facility]. After surgery, she moved to [place] and has not followed up with a surgeon. ? Patient would benefit from close follow-up with gastric bypass surgeon for further evaluation management. Gastric sleeve may need revision, versus other. ? No mesenteric artery stenosis noted on his recent CT abdomen. No calcifications noted on recent CT to suggest classical chronic pancreatitis. Patient states she was told that there there is scar tissue forming around the pancreas since her gastric bypass surgery. ? Will rule out gastroparesis with gastric emptying study in the morning. N.p.o. at midnight. ? GI started scheduled metoclopramide 10 mg ACHS. ? Patient also suffers from chronic constipation, had stool impaction on recent CT within the last week. Ordered MiraLAX, lactulose, mineral oil enema. Follow-up bowel movement. ? Continue [place], Dilaudid for pain control. ? Continue Protonix 40 mg nightly. ? Follow-up morning CBC. #Hypertension ? Hold home amlodipine, losartan as blood pressure stable at this time. Restart when appropriate. Exam Data for Last 24 hours Vital signs and Labs for Last 24 Hours: Temp Pulse Resp BP Pulse Ox O2 Del Method 97.5 F L 84 15 110/72 97 Room Air 04/23/25 08:00 04/23/25 08:00 04/23/25 08:00 04/23/25 08:00 04/23/25 08:15 04/23/25 09:10 Laboratory Results - last 24 hr 04/23/25 07:38: WBC 3.5 L D, RBC 3.33 L, Hgb 10.1 L, Hct 31.1 L, MCV 93.4, MCH 30.3, MCHC 32.5, RDW 13.3, Plt Count 183, MPV 10.0, Neut % (Auto) 40.4, Lymph % (Auto) 52.4 H, [place] % (Auto) 6.0, Eos % (Auto) 0.3, Baso % (Auto) 0.6, Neut # (Auto) 1.4 L, Lymph # (Auto) 1.8, [place] # (Auto) 0.2, Eos # (Auto) 0.0, Baso # (Auto) 0.0, Sodium 141, Potassium 4.0, Chloride 108 H, Carbon Dioxide 25, Anion Gap 12.0, BUN 14, Creatinine 0.60, Estimated Creat Clear 163, Estimated GFR 108, Est GFR ( Amer) 130, Glucose 82, Calcium 8.5, Total Bilirubin 0.3, AST 18 D, ALT 17, Alkaline Phosphatase 58, Total Protein 5.6 L D, Albumin 3.3 L D, Globulin 2.3, Albumin/Globulin Ratio 1.4 I & O for Last 24 hours: Intake & Output 04/20/25 04/21/25 04/22/25 04/23/25 23:59 23:59 23:59 23:59 Intake Total 100 / 100 960 / 1210 250 / 250 Output Total 0 / 0 0 / 0 Balance 100 / 100 960 / 1210 250 / 250 Weight 87.543 kg 87.543 kg 87.997 kg Results Data Completed and Pending Labs on day of discharge: Labs from last 24 hours 04/23/25 07:38 WBC 3.5 L D RBC 3.33 L Hgb 10.1 L Hct 31.1 L MCV 93.4 MCH 30.3 MCHC 32.5 RDW 13.3 Plt Count 183 MPV 10.0 Neut % (Auto) 40.4 Lymph % (Auto) 52.4 H [place] % (Auto) 6.0 Eos % (Auto) 0.3 Baso % (Auto) 0.6 Neut # (Auto) 1.4 L Lymph # (Auto) 1.8 [place] # (Auto) 0.2 Eos # (Auto) 0.0 Baso # (Auto) 0.0 Sodium 141 Potassium 4.0 Chloride 108 H Carbon Dioxide 25 Anion Gap 12.0 BUN 14 Creatinine 0.60 Estimated Creat Clear 163 Estimated GFR 108 Est GFR ( Amer) 130 Glucose 82 Calcium 8.5 Total Bilirubin 0.3 AST 18 D ALT 17 Alkaline Phosphatase 58 Total Protein 5.6 L D Albumin 3.3 L D Globulin 2.3 Albumin/Globulin Ratio 1.4 DS: Diagnosis Discharge Diagnosis (1) Nausea and vomiting: Status: Acute Code(s): R11.2 - Nausea with vomiting, unspecified (2) Hematemesis: Status: Acute Code(s): K92.0 - Hematemesis Qualifiers: Nausea presence: with nausea Qualified Code(s): K92.0 - Hematemesis Meds Home Medications and Allergies Home Medications ?Medication ?Instructions ?Recorded ?Confirmed ?Type epinephrine 0.3 mg/0.3 mL 0.3 mg (0.3 mL) IM Q5-15M PRN 05/16/21 04/22/25 Rx injection, auto-injector (EpiPen anaphylaxis #2 ea 2-Luis) pantoprazole 40 mg tablet,delayed 40 mg PO DAILY #30 tabs 05/15/24 04/22/25 Rx release promethazine 25 mg tablet 25 mg PO Q6H PRN nausea and 05/15/24 04/22/25 Rx vomiting #12 tabs scopolamine base 1 mg over 3 days 1 patch transdermal 2XW 04/04/25 04/22/25 History transdermal patch tizanidine 4 mg tablet 4 mg PO Q6H PRN Pain (Scale Score 04/04/25 04/22/25 History 4-6) acetaminophen 300 mg-codeine 30 mg 1 tab PO QID 04/15/25 04/22/25 History tablet amlodipine 5 mg tablet 5 mg PO BID 04/15/25 04/22/25 History Held on 04/23/25. Instructions: Resume on 04/30/25. losartan 100 mg tablet 100 mg PO DAILY 04/15/25 04/22/25 History Held on 04/23/25. Instructions: Your blood pressures have been stable here without this medication. Please restart this medication if your systolic blood pressure is consistently above 150, otherwise follow-up with your PCP for further discussion about restarting medication. pregabalin 200 mg capsule 200 mg PO BID 04/15/25 04/22/25 History hydrocodone 5 mg-acetaminophen 325 1 tab PO Q4H PRN pain 3 days #15 04/16/25 04/22/25 Rx mg tablet tabs sucralfate 1 gram tablet 1 g PO ACHS 30 days #120 tabs 04/16/25 04/22/25 Rx Relistor 150 mg tablet 450 mg (3 x 150 mg) PO DAILY #90 04/22/25 Rx (methylnaltrexone) tabs cyclobenzaprine 10 mg tablet 10 mg PO HS PRN muscle spasm 30 04/23/25 04/22/25 Rx days #0 tabs hydrocodone 5 mg-acetaminophen 325 1 tab PO Q6HP PRN Mild To Moderate 04/23/25 Rx mg tablet Pain (1-6) #12 tabs [id number] 2 cap PO AC 30 days #180 caps 04/23/25 Rx (pork)36,000-114,000-180k unit capsule,del rel (Creon) metoclopramide HCl 10 mg tablet 10 mg PO AC 14 days #42 tabs 04/23/25 Rx New Prescriptions to Start Prescriptions: hydrocodone-acetaminophen Cruz Romero [id number] (pork) [Creon] Cruz Romero Relistor Noam Oh II metoclopramide HCl Cruz Romero Allergies Allergy/AdvReac Type Severity Reaction Status Date / Time Iodinated Contrast Media Allergy Severe Anaphylaxis Verified 04/04/25 11:27 (IODINATED CONTRAST MEDIA - IV DYE) codeine (CODEINE) Allergy Unknown SWELLING Verified 04/04/25 11:27 iodine (IODINE) Allergy Unknown Anaphylaxis Verified 04/04/25 11:27 loperamide (LOPERAMIDE) Allergy Unknown Rash Verified 04/04/25 11:27 shellfish derived (From Allergy Unknown SWELLING Verified 04/04/25 11:27 SHELLFISH (FOOD/DRUG)) ketorolac (From Toradol) Allergy Difficulty Verified 04/15/25 14:01 Breathing Discharge Plan Disposition Patient Disposition: Home, Self-Care Condition: Fair Follow up Plan Follow up with: Noam Oh II, MD [Staff Physician, Gastroenterology] - 05/05/25 11:00 am Jett Manuel MD [Referring, Medical] - 04/27/25 9:40 am Prescriptions/Medication Reconciliation: New Relistor 150 mg tablet 450 mg PO DAILY Qty: 90 12RF Rx Instructions: Please take 3 tablets by mouth daily hydrocodone-acetaminophen 5-325 mg Tablet 1 tab PO Q6HP PRN (Reason: Mild To Moderate Pain (1-6)) Qty: 12 0RF metoclopramide HCl 10 mg Tablet 10 mg PO AC 14 Days Qty: 42 0RF Creon 36,000-114,000- 180,000 unit Capsule,Delayed Release(Dr/Ec) 2 cap PO AC 30 Days Qty: 180 0RF Continued epinephrine [EpiPen 2-Luis] 0.3 mg/0.3 mL auto-injector 0.3 mg IM Q5-15M PRN (Reason: anaphylaxis) Qty: 2 0RF Rx Instructions: do not exceed 3 doses per episode tizanidine 4 mg tablet 4 mg PO Q6H PRN (Reason: Pain (Scale Score 4-6)) scopolamine base 1 mg over 3 days patch 3 day 1 patch transdermal 2XW acetaminophen-codeine 300-30 mg tablet 1 tab PO QID pregabalin 200 mg capsule 200 mg PO BID sucralfate 1 gram tablet 1 g PO ACHS 30 Days Qty: 120 0RF hydrocodone-acetaminophen 5-325 mg tablet 1 tab PO Q4H PRN (Reason: pain) 3 Days Qty: 15 0RF pantoprazole 40 mg tablet,delayed release (DR/EC) 40 mg PO DAILY Qty: 30 0RF promethazine 25 mg tablet 25 mg PO Q6H PRN (Reason: nausea and vomiting) Qty: 12 0RF Changed cyclobenzaprine 10 mg tablet 10 mg PO HS PRN (Reason: muscle spasm) 30 Days Qty: 0 0RF Held amlodipine 5 mg tablet 5 mg PO BID Hold Instructions: Resume on 04/30/25. losartan 100 mg tablet 100 mg PO DAILY Hold Instructions: Your blood pressures have been stable here without this medication. Please restart this medication if your systolic blood pressure is consistently above 150, otherwise follow-up with your PCP for further discussion about restarting medication. Other Ambulatory Orders: NM gastric emptying study (Routine) Timeframe: 1 Month Facility: [facility] - Location: Radiology Ordered By: Cruz Romero Problem Reconciliation Problems Reviewed?: Yes Patient Discharge Instructions Patient Instructions: Upper GI Endoscopy, DI for Constipation, DI for Gastrointestinal Bleeding Print Language: Beninese Providers Primary Care Provider: Provider,Referral Admit Provider: Cruz Romero Attending Provider: Cruz Romero
[2025-04-23 12:00] VITALS: BP 146/83; PULSE 102; PULSE 90; RESP 18; TEMP 36.8; O2SAT 92
--- NOTE | 2025-04-23 13:12 | EXP.MED.FU ---
Subjective *Date: 04/23/25 *Time: 13:12 Interval history: Patient sitting up in bed eating lunch awaiting discharge. She reports some mild nausea today. She has had multiple bowel movements after enema and laxatives. She plans to see her gastric surgeon to request a reversal of her gastric sleeve due to her chronic nausea. Exam Data for Last 24 hours Vital signs and Labs for Last 24 Hours: Temp Pulse Resp BP Pulse Ox O2 Del Method 98.2 F 102 H 18 146/83 H 92 L Room Air 04/23/25 12:00 04/23/25 12:00 04/23/25 12:00 04/23/25 12:00 04/23/25 12:00 04/23/25 12:00 Laboratory Results - last 24 hr 04/23/25 07:38: WBC 3.5 L D, RBC 3.33 L, Hgb 10.1 L, Hct 31.1 L, MCV 93.4, MCH 30.3, MCHC 32.5, RDW 13.3, Plt Count 183, MPV 10.0, Neut % (Auto) 40.4, Lymph % (Auto) 52.4 H, [place] % (Auto) 6.0, Eos % (Auto) 0.3, Baso % (Auto) 0.6, Neut # (Auto) 1.4 L, Lymph # (Auto) 1.8, [place] # (Auto) 0.2, Eos # (Auto) 0.0, Baso # (Auto) 0.0, Sodium 141, Potassium 4.0, Chloride 108 H, Carbon Dioxide 25, Anion Gap 12.0, BUN 14, Creatinine 0.60, Estimated Creat Clear 163, Estimated GFR 108, Est GFR ( Amer) 130, Glucose 82, Calcium 8.5, Total Bilirubin 0.3, AST 18 D, ALT 17, Alkaline Phosphatase 58, Total Protein 5.6 L D, Albumin 3.3 L D, Globulin 2.3, Albumin/Globulin Ratio 1.4 I & O for Last 24 hours: Intake & Output 04/21/25 04/22/25 04/23/25 04/24/25 11:59 11:59 11:59 11:59 Intake Total 100 1210 Output Total 0 0 Balance 100 1210 Weight 87.543 kg 87.997 kg Constitutional Constitutional: no acute distress and cooperative *Routine HEENT Exam Head: Present normocephalic and atraumatic ENT: Present mucous membranes moist *Routine Respiratory Exam Respiratory: Present CTA bilaterally, normal respiratory effort, able to speak in complete sentences and symmetric chest movement *Routine Cardiovascular Exam Cardiovascular: Present RRR *Routine Abdominal Exam Abdominal: Present soft and normoactive bowel sounds; Absent tenderness *Routine Extremities Exam Extremities: Present full ROM *Routine Skin Exam Skin: Present intact Routine Psychiatric Exam Psychiatric: Present normal affect and cooperative Assessment and Plan *Assessment and plan (1) History of gastric bypass: Status: Acute Category: Surgical Code(s): Z98.84 - Bariatric surgery status (2) Opioid-induced constipation: Status: Acute Category: Medical Code(s): K59.03 - Drug induced constipation; T40.2X5A - Adverse effect of other opioids, initial encounter (3) Nausea and vomiting: Status: Acute Category: Medical Code(s): R11.2 - Nausea with vomiting, unspecified (4) Hematemesis: Status: Acute Qualifiers: Nausea presence: with nausea Qualified Code(s): K92.0 - Hematemesis Category: Medical Code(s): K92.0 - Hematemesis (5) Abdominal pain, epigastric: Status: Acute Category: Medical Code(s): R10.13 - Epigastric pain (6) Chronic pancreatitis: Status: Acute Qualifiers: Pancreatitis type: unspecified pancreatitis type Qualified Code(s): K86.1 - Other chronic pancreatitis Category: Medical Code(s): K86.1 - Other chronic pancreatitis (7) Functional dyspepsia: Status: Acute Category: Medical Code(s): K30 - Functional dyspepsia Plan 1. History of gastric bypass/opioid-induced constipation/nausea vomiting/epigastric pain Likely her chronic nausea directly related to her chronic opioid-induced constipation and gastric sleeve. Dr. Oh recommended Relistor as an outpatient. If she is delayed in receiving that prescription, I recommend MiraLAX and Citrucel daily to keep her bowels moving. We discussed the relationship chronic constipation and colonic fermentation worsening her epigastric symptoms. Continue Reglan to improve motility and Creon due to chronic pancreatitis and to facilitate digestion. Patient plans to go back to [place] for a few months and then return and moved to [facility]. I recommend when she establishes care with a primary care here in a few months, to request a referral to our office for chronic GI care.
--- NOTE | 2025-04-23 14:35 | CARE MANAGER ---
Addendum entered by Sola Thompson RN 04/24/25 11:39: Contacted patient's insurance due to eligibility issue found by scheduling. They state patient has HMO and is not covered for anything outside of the state of [place]. Contacted patient and discussed getting a GFE for the test, but she states she will follow up with her MD in [place] and have them do it there. She would like to cancel the test. Made scheduling aware. Original Note: Patient had gastric emptying study ordered for outpatient. obtained authorization and let scheduling know that this was approved and in the system.
--- NOTE | 2025-04-24 13:55 | SW/DCPLANNER ---
Spoke with patient on the phone. Patient stated that she is doing about the same. Patient stated that she is aware of her upcoming appointments. Patient stated that she was able to bead picker her new medicine. Patient stated that she has no cocnerns or questions at this time. Arian Garcia
[2025-04-27 19:10] LABS: Interpretation Notes (.); Lactase 61.73 (>/= 14.0); Maltase 206.56 (>/= 110.0); Palatinase 19.33 (>/= 8.5); Reference Notes (.); Sucrase 73.27 (>/= 25.0)
== END 2025-04-23 13:17 | disposition home or self-care (01) ==
LOC: ER 18:51 → 2ND 21:37
PROVIDERS: Internal Medicine Gastroenterology; Nurse Practitioner; Nurse Practitioner Family; Admitting Provider Student in an Organized Health Care Education/Training Program; Emergency Provider Emergency Medicine; Visit Provider Student in an Organized Health Care Education/Training Program
PROC: 0DJ08ZZ Inspection of Upper Intestinal Tract, Via Natural or Artificial Opening Endoscopic (ICD-10-PCS; principal; 2025-04-22 07:30)
DX: Z79.899 Other long term (current) drug therapy (principal); Z91.041 Radiographic dye allergy status; Z88.5 Allergy status to narcotic agent; Z88.6 Allergy status to analgesic agent; Z91.013 Allergy to seafood; I10 Essential (primary) hypertension; I88.0 Nonspecific mesenteric lymphadenitis; K59.03 Drug induced constipation; T40.2X5A Adverse effect of other opioids, initial encounter; Z98.84 Bariatric surgery status
CPT/HCPCS: 43239; 36415; 71045; 80053; 81001; 81025; 82657; 82962; 83690; 83735; 84484; 85025; 85610; 85730; 86803; 86850; 87389; 96365; 96366; 96372; 96375; 96376; 99285; G0378; J0131; J1171; J1200; J1650; J2003; J2270; J2405; J2470; J2550; J2704; J2919; J7030

== ENCOUNTER 2025-04-25 13:26 | Emergency (ER) | payer OTHER, SELFPAY ==
[2025-04-25] VITALS (32 sets, daily range): BP systolic 136–178; BP diastolic 67–126; PULSE 85–108; RESP 10–18; TEMP 36.6–36.7; O2SAT 93–100; BMI 32.1
--- OUTSIDE RECORDS SUMMARY | 2025-04-25 13:35 | XMS_ITS | Clinical Summary ---
Author Organization [employer] Address [address] [place] [address] Care Team Providers Care Property Caretaker Name Role Phone Pcp, No Primary Care Provider [phone] Encounters Date Type Department Care Team Description 01/31/2025 2:00 PM MDT E-Visit [facility] [address] [place] [address] Coral Marie NP Referral of patient (Primary Dx) from Last 3 Months Immunizations Immunization Administration Dates Next Due Tdap 02/22/2025 Social History Tobacco Use Types Packs/Day Years Used Date Smoking Tobacco: Never Assessed Comments Unknown Sex and Gender Information Value Date Recorded Sex Assigned at Not on file Legal Sex Female 1:54 PM EDT Gender Identity Not on file Sexual Orientation Not on file Plan of Treatment Not on file Medical Devices Not on file Insurance [employer] Care Teams Property Caretaker Relationship Specialty Start Date End Date Pcp, No PCP - General Family Medicine 01/31/25
--- OUTSIDE RECORDS SUMMARY | 2025-04-25 13:35 | XMS_ITS | Continuity of Care Document ---
Author Organization [place] - Dr. Tomi Quezada, [facility] [place] Address [address] [place] [address] Care Team Providers Care Land Surveyor Manager Name Role Phone [facility] Pain Management Assessment Encounter Date Assessment Date Assessment LastModified by Organization Details LastModified Time 01/30/2025 01/30/2025 Patient presented for medication refill. Patient tolerating medication well at current dose without adverse effects. Refilled as below. Discussed plan with patient, who expressed understanding . Follow up as noted below. Not available 01/30/2025 14:57:54 Plan of Treatment Reminders Order Date Submit Date Provider Last Modified By Organization Details Last Modified Time Details Appointments None recorded. Lab None recorded. Referral dentist referral 2024 025 [facility], [address], [place], [address], 5 04:10:04 Procedures None recorded. Surgeries None recorded. Imaging CT, maxillofac ial, w/o contrast 2024 025 [email or web address] [facility], [address], [place], [address], 5 23:17:27 MAMMO, screening, bilateral 2024 025 [facility], [address], [place], [address], 5 04:02:57 Medication Orders None recorded. Patient TargetsNo targets recorded. Patient InstructionsNo instructions recorded. Reason for Referral Dentist Referral for Infecti on of tooth Referring Physician: Madeleine Grant, Family Medicine, Encounter Date: 01/30/2025 Problems Name Problem SNOMED Code Status Onset Date Resolution Date Notes Provider Name and Address Organization Details Recorded Time Acute pancreatitis 242715617 Active [place] - Dr. Tomi Quezada 5 16:24:31 Restless legs syndrome 72159841 Active [place] - Dr. Tomi Quezada 5 16:24:31 Migraine 49100074 Active [place] - Dr. Tomi Quezada 5 16:24:31 Simple obesity 186992067 Active [place] [place] - Dr. Tomi Quezada 5 16:24:31 Chronic pancreatitis 467323866 Active 2022 JESUS PIMENTEL NP [address], [place], [address], [place] - Dr. Tomi Quezada 5 15:56:21 Mixed hyperlipidemia 645266323 Active 2022 [place] - Dr. Tomi Quezada 3 16:50:12 Vitamin B12 deficiency (non anemic) 84010272 Active 2022 [place] - Dr. Tomi Quezada 3 16:50:13 Conjunctivitis 0151140 Active 2022 Alexx Garcia MD [address], [place], [address], [place] - Dr. Tomi Quezada 3 13:12:09 Chronic nonspecific abdominal pain 009183799 Active 2022 JESUS PIMENTEL NP [address], [place], [address], [place] - Dr. Tomi Quezada 5 16:51:48 Opioid dependence 97652870 Active 2022 Tomi Quezada MD [address], [place], [address], [place] - Dr. Tomi Quezada 3 21:55:27 Benzodiazepine dependence 174778157 Active 2022 Tomi Quezada MD [address], [place], [address], [place] - Dr. Tomi uQezada 3 21:55:46 Low back pain 860253667 Active 2023 JESUS PIMENTEL NP [address], [place], [address], [place] - Dr. Tomi Quezada 5 15:56:21 Tachycardia 3114073 Active 2023 Maritza Mcpherson NP [address], [place], [address], [place] - Dr. Tomi Quezada 4 17:47:04 Seizure disorder 636815038 Active 2023 Maritza Mcpherson NP [address], [place], [address], [place] - Dr. Tomi Quezada 4 11:16:55 Headache 94688751 Active 2023 Maritza Mcpherson NP [address], [place], [address], [place] - Dr. Tomi Quezada 4 11:17:33 Essential hypertension 56510611 Active 2023 JESUS PIMENTEL NP [address], [place], [address], [place] - Dr. Tomi Quezada 16:50:08 Tooth infection 865388623 Active 2024 JESUS PIMENTEL NP [address], [place], [address], [place] - Dr. Tomi Quezada 5 15:56:21 Nausea and vomiting, unspecified vomiting type 90888665 Active 2024 JESUS PIMENTEL NP [address], [place], [address], [place] - Dr. Tomi Quezada 16:41:02 Motion sickness 26317511 Active 2024 JESUS PIMENTEL NP [address], [place], [address], [place] - Dr. Tomi Quezada [...] Name and Address Organization Details Recorded Time 54197 iodine medicatio n Not available Not available Not available 04/02/2025 5933 RxNorm Not Available [employer] - prod 19:27:15 18417 prednison e medicatio n Not available Not available Not available 04/02/2025 8640 RxNorm Not Available [employer] - prod 19:27:15 6339 shellfish derived food,medi cation Not available Not available Not available 09/26/[address] 3 14:35:17 8619 loperamid e medicatio n Not available Not available Not available 06/25/2024 6468 RxNorm Other react ions and sever ities : 'Weal (diso rder) '. DAVID [address] Dr[address] 5 10:07:15 8899 ketorolac medicatio n Not available Not available Not available 08/20/2024 [address] 5 10:07:15 Medications [...] ROUTE TWICE A DAY FOR 30 DAYS 2024 active Not Available Not Available Not Avai lable epinephri ne 0.3 mg/0.3 mL injection , [...] Do You Have An Advance Directive? No Information not available 09/26/2022 If You Are , What Was Your Level Of Alcohol Consumption Prior To ? None [email or web address] Information not available 09/26/2022 What Is Your Level Of Caffeine Consumption? Occasional [email or web address] Information not available 09/26/2022 What Type Of Diet Are You Following? REGULAR [email or web address] Information not available 09/26/2022 Do You Have A Medical Power Of Hospitality Housekeeper? No [email or web address] Information not available 09/26/2022 How Many Children Do You Have? 1 [email or web address] Information not available 09/26/2022 Do You Have A Patient Advocate? No Information no t available 09/26/2022 What Is Your Relationship Status? [email or web address] Information not available 09/26/2022 Are You Sexually Active? No [email or web address] Information not available 09/26/2022 Do You Have Difficulty Walking Or Climbing Stairs? No [email or web address] Information not available 09/26/2022 Sex: Female Functional Status Question Answer Note LastModified by Organizat ion Details LastModified Time Do you use any illicit or recreational drugs? No [email or web address] Information not available 09/26/2022 Do you or have you ever used any other forms of tobacco or nicotine? No [email or web address] Information not available 09/26/2022 What is your level of alcohol consumption? None Information not available 09/26/2022 Are you currently employed? No Information not available 09/26/2022 What is your status? Not [email or web address] Information no t available 09/26/2022 Are you able to walk independently without assistance or assistive devices? YESWOREST [email or web address] Information not available 09/26/2022 Are you able to care for yourself independently? Yes [email or web address] Information not available 09/26/2022 What is your exercise level? Occasional [email or web address] Information not available 09/26/2022 Mental Status None recorded. Family History Relationship Description Onset Age of this Age Resolved Age Notes LastModified by Organization Details LastModified Time Paternal Grandfather Malignant neoplastic disease [email or web address] Not available 2022 14:46:24 Medical History Condition [...] objection Alexx Garcia MD [address], [place], [address], [place] - Dr. Tomi Quezada 10/03/2023 18:30:12 Influenza, MDCK, quadrivalent, preservative 10/03/19 24 cancelled patient objection Alexx Garcia MD [address], [place], [address], [place] - Dr. Tomi Quezada 10/03/2023 18:30:12 COVID-19, mRNA, LNP-S, PF, 30 mcg/0.3 mL dose 06/21/19 21 completed [email or web address] - Dr. Tomi Quezada 09/26/2022 14:36:31 COVID-19, mRNA, LNP-S, PF, 30 mcg/0.3 mL dose 07/20/19 21 completed KEYLA TAPIA [place] - Dr. Tomi Quezada 09/26/2022 14:36:35 Tdap 05/21/19 19 completed [place] - Dr. Tomi Quezada 09/26/2022 14:49:53 Influenza, MDCK, trivalent, preservative 01/24/20 24 cancelled patient objection Maritza Mcpherson NP [address], [place], [address], [place] - Dr. Tomi Quezada 01/24/2024 17:42:28 Influenza, MDCK, trivalent, preservative 02/07/20 24 cancelled patient objection Maritza Mcpherson NP [address], [place], [address], [place] - Dr. Tomi Quezada 02/08/2024 11:15:01 Influenza, MDCK, trivalent, preservative 03/21/20 24 cancelled patient objection M[facility]LE[facility] WEISS [address], [place], [address], [place] - Dr. Tomi Quezada 03/21/2024 17:11:37 RSV, bivalent, protein subunit RSVpreF, diluent reconstituted, 0.5 mL, PF 03/03/20 completed DAVID Coreas - Dr. Tomi Quezada 04/03/2025 14:43:18 influenza nasal, unspecified formulation 06/06/19 completed DAVID Coreas - Dr. Tomi Quezada 04/03/2025 14:45:37 Influenza, MDCK, trivalent, PF 08/21/19 25 cancelled patient objection MADELEINE WEISS [address], [place], [address], [place] - Dr. Tomi Quezada 08/20/2024 10:44:31 Influenza, MDCK, trivalent, preservative 11/27/19 25 cancelled patient objection Carlin Patterson NP [address], [place], [address], [place] - Dr. Tomi Quezada 11/26/2024 17:55:55 COVID-19, mRNA, LNP-S, PF, aldo-sucrose, 30 mcg/0.3 mL 11/27/19 25 cancelled patient objection Carlin Patterson NP [address], [place], [address], [place] - Dr. Tomi Quezada 11/26/2024 17:55:55 Past Encounters Encounter ID Performer Location Encounter Start Date Encounter Closed Date Diagnosis/Indication Diagnosis SNOMED-CT Code Diagnosis ICD10 Code Diagnosis IMO Codes Diagnosis Note [id number] Tomi Quezada MD [facility] [place] [address] [facility], [address] [place] [address] 01/27/2025 14:22:34 01/27/2025 15:43:11 Screening for malignant neoplasm of colon 369392648 Z12.11 12/06/2024 FECAL Depression screening 171 949890 Z13.31 negative Immunization due 1778424 08 Z23 2420699 tdap, flu & covid UP TO DATE. Screening for malignant neoplasm of cervix 174690210 Z12.4 05/21/2015 Body mass index 30+ - obesity 843349732 Z68.30 166960 30.7 Bacterial sinusitis 7034 04989 J32.9 B96.89 [id number] will treat as belowconti nue with flonase [id number] Alexx Garcia MD [facility] [address] [address] 01/29/2025 10:53:44 01/29/2025 11:14:16 Screening mammography 17114728 Z12.31 12/19/2023 Depression screening 171 172729 Z13.31 negative Body mass index 30+ - obesity 391399367 Z68.30 005380 30.7 Acute maxi llary sinusitis 44316815 J01.00 [address]132625 refer to stat CT. If unable to have CT done today recommend patient go to ER or if new or worsening symptoms. continue augmentin [id number] Alexx Garcia MD [facility] [address], [address] [address] 01/30/2025 14:38:34 01/30/2025 15:05:49 Screening mammography 87873487 Z12.31 12/19/2023 Depression screening 171 Z13.31 negative Infection of tooth 97268 8007 K04.7 [id number] continue augmentin, refer to [facility]. send CT to other [...] Lamar Member ID Guarantor Name 01/30/2025 1 AENATACHA ([facility] [id number] Kasia Barber [id number] Kasia Barber Notes Date Note Type Note [...] symptoms Patient in for hospital f/u from [facility]--was in the ER (not admitted) Dx; Panniculitus Rx: unchanged, no new medications Current pain unchanged; reports always in pain due to chronic pancreatitisfollowing pain managementf/u with GI at [facility] Dr. Gamble 11/2024denies chest pain, sob, fevers, chills, vomiting or diarrhea+nausea, abdominal pain Hospitalized at [facility] from 05/24/2024-06/04/2024 (request record)Patient went back to [facility] 06/08/2024-06/15/2024 for pancreatitis pain again. Always [...] [facility] at this timereports just having problems sleeping--would like something to help her sleep MADELEINE WEISS [address], [place], [address], [place] - Dr. Tomi Quezada 01/30/2025 15:04:04 OBGyn Episode No OBEpisode recorded.
--- OUTSIDE RECORDS SUMMARY | 2025-04-25 13:35 | XMS_ITS | Continuity of Care Document ---
Author Organization [place] - Dr. Tomi Quezada, [facility] Address [address] [facility] Andrey GALINDO [facility] [address] [place] [address] Care Team Providers Care Sofa Cover Inspector Name Role Phone [facility] Pain Management Assessment No assessment recorded. Plan of Treatment Reminders Order Date Submit Date Provider Last Modified By Organization Details Last Modified Time Details Appointments None recorded. Lab None recorded. Referral None recorded. Procedures None recorded. Surgeries None recorded. Imaging None recorded. Medication Orders amoxicillin 875 mg-potassiu m clavulanate 125 mg tablet 2024 025 [facility]/Pharmacy #[id number], [address] [place], [address], 5 05:01:17 azelastine 137 mcg (0.1 %) nasal spray 2024 025 [facility]/Pharmacy #[id number], [address] [place], [address], 5 15:36:28 Patient TargetsNo targets recorded. Patient InstructionsNo instructions recorded. Reason for Referral None Reported. Problems Name Problem SNOMED Code Status Onset Date Resolution Date Notes Provider Name and Address Organization Details Recorded Time Acute pancreatitis 824474866 DAVID Funez Dr. 5 16:24:31 Restless legs syndrome 79920934 DAVID Funez Dr. 16:24:[address] 5 16:24:31 Simple obesity 310930401 Active [place], [place] - Dr. Tomi Quezada 5 16:24:31 Chronic pancreatitis 326569343 Active 2022 JESUS PIMENTEL NP [address], [place], [address], [place] - Dr. Tomi Quezada 5 15:56:21 Mixed hyperlipidemia 774598910 Active 2022 [place], [place] - Dr. Tomi Quezada 3 16:50:12 Vitamin B12 deficiency (non anemic) 28596946 Active 2022 [place], [place] - Dr. Tomi Quezada 3 16:50:13 Conjunctivitis 4728501 Active 2022 Alexx Garcia MD [address], [place], [address], [place] - Dr. Tomi Quezada 13:12:09 Chronic nonspecific abdominal pain 781548344 Active 2022 JESUS PIMENTEL NP [address], [place], [address], [place] - Dr. Tomi Quezada 5 16:51:48 Opioid dependence 95099446 Active 2022 Tomi Quezada MD [address], [place], [address], [place] - Dr. Tomi Quezada 3 21:55:27 Benzodiazepine dependence 954629683 Active 2022 Tomi Quezada MD [address], [place], [address], [place] - Dr. Tomi Quezada 3 21:55:46 Low back pain 531880789 Active 2023 JESUS PIMENTEL NP [address], [place], [address], [place] Dr. Tomi Quezada 5 15:56:21 Tachycardia 5091930 Active 2023 Maritza Mcpherson NP [address], [place], [address], [place] - Dr. Tomi Quezada 4 17:47:04 Seizure disorder 691969487 Active 2023 Maritza Mcpherson NP [address], [place], [address], [place] - Dr. Tomi Quezada 4 11:16:55 Headache 93851796 Active 2023 Maritza Mcpherson PATROL MAN [address], [place], [address], [place] - Dr. Tomi Quezada 4 11:17:33 Essential hypertension 56850064 Active 2023 JESUS PIMENTEL [employer] [address], [place], [address], [place] - Dr. Tmoi Quezada 16:50:08 Tooth infection 174866805 Active 2024 JESUS PIMENTEL NP [address], [place], [address], [place] - Dr. Tomi Quezada 15:56:21 Nausea and vomiting, unspecified vomiting type 52819193 Active 2024 JESUS PIMENTEL [employer] [address], [place], [address], [place] - Dr. Tomi Quezada 16:41:02 Motion sickness 20482645 Active 2024 JESUS PIMENTEL NP [address], [place], [address], [place] - Dr. Tomi Quezada [...] Name and Address Organization Details Recorded Time 64424 iodine medicatio n Not available Not available Not available 04/02/2025 5933 RxNorm Not Available vesna - External Data Service - prod 5 19:27:15 03015 prednison e medicatio n Not available Not available Not available 04/02/2025 8640 RxNorm Not Available warner - External Data Service - prod 5 [...] Not available Not available Not available 08/20/2024 [address] 5 10:07:15 Medications [...] transderm al patch APPLY 1 PATCH TRANSDER RDEW TWICE A WEEK 2024 active Not Available [...] Not Available Not Available Not Available buprenorp eleonroa 20 mcg/hour weekly transderm al patch APPLY [...] Updated DateTime 01/27/2025 167.64 cm 30.7 kg/m2 49913.55 g 211/155 mm[Hg] RUBIA Quezada 01/27/2025 14:30:07 Social History Question Answer Notes LastModified by Organizat ion Details LastModified Time Tobacco Smoking Status Never Smoker DAVID Joseph Dr. 09/26/2022 14:46:38 Do You Have An Advance Directive? No [email or web address] Information not available 09/26/2022 If You Are , What Was Your Level Of Alcohol Consumption Prior To ? None [email or web address] Information not available 09/26/2022 What Is Your Level Of Caffeine Consumption? Occasional [email or web address] Information not available 09/26/2022 What Type Of Diet Are You Following? REGULAR Information not available 09/26/2022 Do You Have A Medical Power Of Warehouse Packer? No [email or web address] Information not available 09/26/2022 How Many Children Do You Have? 1 [email or web address] Information not available 09/26/2022 Do You Have A Patient Advocate? No [email or web address] Information no t available 09/26/2022 What Is Your Relationship Status? [email or web address] Information not available 09/26/2022 Are You Sexually Active? No Information not available 09/26/2022 Do You Have Difficulty Walking Or Climbing Stairs? No [email or web address] Information not available 09/26/2022 Sex: Female Functional Status Question Answer Note LastModified by Organizat ion Details LastModified Time Do you use any illicit or recreational drugs? No [email or web address] Information not available 09/26/2022 Do you or have you ever used any other forms of tobacco or nicotine? No [email or web address] Information not available 09/26/2022 What is your level of alcohol consumption? None [email or web address] Information not available 09/26/2022 Are you currently employed? No [email or web address] Information not available 09/26/2022 What is your status? Not [email or web address] Information no t available 09/26/2022 Are you able to walk independently without assistance or assistive devices? YESWOREST [email or web address] Information not available 09/26/2022 Are you able to care for yourself independently? Yes [email or web address] Information not available 09/26/2022 What is your exercise level? Occasional [email or web address] Information not available 09/26/2022 Mental Status None [...] objection Alexx Garcia MD [address], [place], [address], [place] - Dr. Tomi Quezada 10/03/2023 18:30:12 Influenza, MDCK, quadrivalent, preservative 10/03/19 24 cancelled patient objection Alexx Garcia MD [address], [place], [address], [place] - Dr. Tomi Quezada 10/03/2023 18:30:12 [...] objection Maritza Mcpherson NP [address], [place], [address], [place] - Dr. Tomi Quezada 01/24/2024 17:42:28 Influenza, MDCK, trivalent, preservative 02/07/20 24 cancelled patient objection Maritza Mcpherson NP [address], [place], [address], [place] - Dr. Tomi Quezada 02/08/2024 11:15:01 Influenza, MDCK, trivalent, preservative 03/21/20 24 cancelled patient objection CHASITY WEISS [address], [place], [address], [facility] - Dr. Tomi Quezada 03/21/2024 17:11:37 RSV, bivalent, protein subunit RSVpreF, diluent reconstituted, 0.5 mL, PF 03/03/[address] Tomi Quezada 04/03/2025 14:43:18 influenza nasal, unspecified formulation 06/06/[address] Tomi Quezada 04/03/2025 14:45:37 Influenza, MDCK, trivalent, PF 08/21/19 cancelled patient objection CHASITY WEISS [address], [place], [address], [facility] - Dr. Tomi Quezada 08/20/2024 10:44:31 Influenza, MDCK, trivalent, preservative 11/27/19 cancelled patient objection Carlin Patterson NP [address], [place], [address], [facility] - Dr. Tomi Quezada 11/26/2024 17:55:55 COVID-19, mRNA, LNP-S, PF, aldo-sucrose, 30 mcg/0.3 mL 11/27/19 cancelled patient objection Carlin Patterson NP [address], [place], [address], [facility] Dr. Tomi Quezada 11/26/2024 17:55:55 Past Encounters Encounter ID Performer Location Encounter Start Date Encounter Closed Date Diagnosis/Indication Diagnosis SNOMED-CT Code Diagnosis ICD10 Code Diagnosis IMO Codes Diagnosis Note [id number] Tomi Quezada MD [facility] [address], [facility] [address] [place] [address] 01/27/2025 14:22:34 01/27/2025 15:43:11 Screening for malignant neoplasm of colon 362555098 Z12.11 12/06/2024 [facility]ECAL Depression screening 171 142442 Z13.31 negative Immunization due 4825378 08 Z23 7384970 tdap, flu & covid UP TO DATE. Screening for malignant neoplasm of cervix 555333278 Z12.4 05/21/2015 Body mass index 30+ - obesity 853907539 Z68.30 374214 30.7 Bacterial sinusitis 7034 44283 J32.9 B96.89 [id number] will treat as belowconti nue with flonase Health Concerns Section Related Observation LastModified by Organization Detai ls LastModified Time None Recorded Concern Status LastModified by Organization Details LastModified Time None Recorded Payers Encounter Date Sequence Insurance Name Policy Number Policy Lamar Covered Member ID Lamar Member ID Guarantor Name 01/27/2025 1 [employer] (O) [id number] Kasia Barber [id number] Kasia Barber Notes Date Note Type Note [...] symptoms Patient in for hospital f/u from [facility]--was in the ER (not admitted) Dx; Panniculitus Rx: unchanged, no new medications Current pain unchanged; reports always in pain due to chronic pancreatitisfollowing pain managementf/u with GI [facility] Dr. Gamble 11/2024denies chest pain, sob, fevers, chills, vomiting or diarrhea+nausea, abdominal pain Hospitalized at [facility] from 05/24/2024-06/04/2024 (request record)Patient went back to [facility] 06/08/2024-06/15/2024 for pancreatitis pain again. [...] recent divorceno longer following Dr [facility], at [facility] well and doesn't feel like needs medications at this timereports just having problems sleeping--would like something to help her sleep Carlin Patterson, ARACELI [address], [place], [address], [place] - Dr. Tomi Quezada 01/27/2025 15:36:29 OBGyn Episode No OBEpisode recorded.
--- OUTSIDE RECORDS SUMMARY | 2025-04-25 13:36 | XMS_ITS | Data Portability ---
Author Organization [place] - Dr. Tomi Quezada, [facility] Address [address] [facility] Andrey GALINDO [address] [place] [address] Care Team Providers Care Adhesive Primer Name Role Phone [facility] Pain Management Assessment Encounter Date Assessment Date Assessment LastModified by Organization Details LastModified Time 01/30/2025 01/30/2025 Patient presented for medication refill. Patient tolerating medication well at current dose without adverse effects. Refilled as below. Discussed plan with patient, who expressed understanding . Follow up as noted below. Not available 01/30/2025 14:57:54 03/04/2025 03/04/2025 Patient [...] healthy living. Further treatment per orders below. [email or web address] Not available 03/04/2025 16:47:59 04/03/2025 04/03/2025 Patient presented for medication refill. Patient tolerating medication well at current dose without adverse effects. Refilled as below. Discussed plan with patient, who expressed understanding . Follow up as noted below. [email or web address] Not available 04/03/2025 17:26:16 Plan of Treatment Reminders Order Date Submit Date Provider Last Modified By Organization Details Last Modified Time Details Appointments None recorded. Lab fecal occult blood, immunoass ay, stool 2024 [facility], [address], [place], [address], 04:19:14 CBC w/ auto diff 2024 [facility], [address], [address], [place], [address], 5 04:17:24 Referral gastroent erologist referral 2024 BILLINGS Not available 04:14:24 dentist referral 2024 [facility], [address] [place], [address], 04:10:04 Procedures None recorded. Surgeries None recorded. Imaging MAMMO, screening , bilateral 2024 [facility], [address], [address], [place], [address], 5 04:02:40 CT, maxillofa cial, w/ contrast - stat 2024 025 [facility], [address] [place], [address], 5 04:17:25 CT, maxillofa cial, w/o contrast [email or web address] [facility], [address] [place], [address], 5 23:17:27 MAMMO, screening , bilateral 2024 025 [facility], [address], [place], [address], 04:02:57 Medication Orders promethaz ine 25 mg tablet 2024 [id number], [address] [place], [address], 17:27:50 tizanidin e 4 mg tablet 2024 [id number], [address] [place], [address], 17:27:50 tizanidin e 2 mg tablet 2024 [id number], [address] [place], [address], 17:27:50 scopolami ne 1 mg over 3 days transderm al patch 2024 [id number], [address] [place], [address], 17:27:50 promethaz ine [address] [id number], [address] [place], [address], 17:10:00 amlodipin e [address] [id number], [address] [place], [address], 16:57:37 losartan 100 mg tablet 2024 [facility] #[id number], [address] [place], [address], 17:10:35 tizanidin e 4 mg tablet 2024 [id number], [address] [place], [address], 15:50:11 tizanidin e 2 mg tablet 2024 025 [id number], [address] [place], [address], 15:50:10 promethaz ine 25 mg tablet 2024 025 [id number], [address] [place], [address], 15:50:10 Patient TargetsNo targets recorded. Patient Instructions Encounter Date Encounter Id Patient Instructions Last Modified By Organization Details Last Modified Time 04/03/2025 individual counseling* [email or web address] Not available 04/03/2025 17:27:46 Reason for Referral Dentist Referral for Infecti on of tooth Referring Physician: [facility], Encounter Date: 01/30/2025 Educational Aid Referral for Screening for malignant neoplasm of colon Referring Physician: [facility], Encounter Date: 03/04/2025 Results Created Date Observation Date Name Description Value Unit Range Abnormal Flag Note LastModifiedBy Organization Detail LastModifiedTime 04/03/2004/03/2025 indiv idual couns eling * patient counseled Not Available Prim[facility] [address], [address], 04/02/2025 18:05:08 Result Notes None recorded. Problems Name Problem SNOMED Code Status Onset Date Resolution Date Notes Provider Name and Address Organization Details Recorded Time Acute pancreatitis [id number] DAVID Funez - Dr. Tomi Quezada 16:24:31 Restless legs syndrome 47141089 Active DAVID Solano - Dr. Tomi Quezada 16:24:31 Migraine 49435036 Active DAVID Solano - Dr. Tomi Quezada 5 16:24:31 Simple obesity 590700446 Active PARAS ROCHA null, [place] - Dr. Tomi Quezada 5 16:24:31 Chronic pancreatitis 287701736 Active 2022 LOURDES COLEMAN NP [address], [place], [address], [place] - Dr. Tomi Quezada 15:56:21 Mixed hyperlipidemia 791436268 Active 2022 JERROD ALMENDAREZ null, [place] - Dr. Tomi Quezada 16:50:12 Vitamin B12 deficiency (non anemic) 72110410 Active 2022 JERROD ALMENDAREZ null, [place] - Dr. oTmi Quezada 16:50:13 Conjunctivitis 5871935 Active 2022 Alexx Garcia MD [address], [place], [address], [place] - Dr. Tomi Quezada 13:12:09 Chronic nonspecific abdominal pain 065006801 Active 2022 LOURDES COLEMAN NP [address], [place], [address], [place] - Dr. Tomi Quezada 16:51:48 Opioid dependence 86738735 Active 2022 Tomi Quezada MD [address], [place], [address], [place] - Dr. Tomi Quezada 21:55:27 Benzodiazepine dependence 825324549 Active 2022 Tomi Quezada MD [address], [place], [address], [place] - Dr. Tomi Quezada 3 21:55:46 Low back pain 461689110 Active 2023 LOURDES COLEMAN NP [address], [place], [address], [place] - Dr. Tomi Quezada 5 15:56:21 Tachycardia 5522372 Active 2023 Maritza Mcpherson NP [address], [place], [address], [place] - Dr. Tomi Quezada 4 17:47:04 Seizure disorder 355581460 Active 2023 Maritza Mcpherson NP [address], [place], [address], [place] - Dr. Tomi Quezada 4 11:16:55 Headache 30470789 Active 2023 Maritza Mcpherson NP [address], [place], [address], [place] - Dr. Tomi Quezada 4 11:17:33 Essential hypertension 32115191 Active 2023 LOURDESDAVIDSON COLEMAN NP [address], [place], [address], [place] - Dr. Tomi Quezada 16:50:08 Tooth infection 768933980 Active 2024 LOURDES COLEMAN NP [address], [place], [address], [place] - Dr. Tomi Quezada 15:56:21 Nausea and vomiting, unspecified vomiting type 07767215 Active 2024 LOURDES COLEMAN NP [address], [place], [address], [place] - Dr. Tomi Quezada 16:41:02 Motion sickness 34300528 Active 2024 LOURDES COLEMAN GIRL FRIDAY [address], [place], [address], [place] - Dr. Tomi Quezada 17:26:23 [...] Name and Address Organization Details Recorded Time 40403 iodine medicatio n Not available Not available Not available 04/02/2025 5933 RxNorm Not Available vesna - External Data Service - prod 5 19:27:15 40255 prednison e medicatio n Not available Not [...] Not available Not available Not available 08/20/2024 83037 RxNorm DAVID Martin - Dr. Tomi Quezada [...] Updated DateTime 02/02/2025 165.1 cm 30.8 kg/m2 20577.59 g 235/160 mm[Hg] PARTH Quezada 02/02/2025 13:39:15 Date Recorded Body height Body mass index (BMI) Body weight Body height Body mass index (BMI) Body weight Provider Name and Address Organization Details Last Updated DateTime 03/04/2025 165.1 cm 30.8 kg/m2 75795.59 g 165.1 cm 30.8 kg/m2 14976.5 9 g BRIANA Quezada 15:33:53 Date Recorded [...] Of Alcohol Consumption Prior To ? None [email or web address] Information not available 09/26/2022 What Is Your Level Of Caffeine Consumption? Occasional [email or web address] Information not available 09/26/2022 What Type Of Diet Are You Following? REGULAR [email or web address] Information not available 09/26/2022 Do You Have A Medical Power Of Pressing Machine Operator? No Information not available 09/26/2022 How Many Children Do You Have? 1 [email or web address] Information not available 09/26/2022 Do You Have A Patient Advocate? No [email or web address] Information no t available 09/26/2022 What Is Your Relationship Status? [email or web address] Information not available 09/26/2022 Are You Sexually Active? No [email or web address] Information not available 09/26/2022 Do You Have Difficulty Walking Or Climbing Stairs? No [email or web address] Information not available 09/26/2022 Sex: Female Functional Status Question Answer Note LastModified by Organizat ion Details LastModified Time Do you use any illicit or recreational drugs? No [email or web address] Information not available 09/26/2022 Do you or have you ever used any other forms of tobacco or nicotine? No [email or web address] Information not available 09/26/2022 What is your level of alcohol consumption? None Information not available 09/26/2022 Are you currently employed? No [email or web address] Information not available 09/26/2022 What is your status? Not Information no t available 09/26/2022 Are you able to walk independently without assistance or assistive devices? YESWOREST [email or web address] Information not available 09/26/2022 Are you able to care for yourself independently? Yes [email or web address] Information not available 09/26/2022 What is your exercise level? Occasional [email or web address] Information not available 09/26/2022 Mental Status None recorded. Family History Relationship Description Onset Age of this Age Resolved Age Notes LastModified by Organization Details LastModified Time Paternal Grandfather Malignant neoplastic disease [email or web address] Not available 2022 14:46:24 Medical History Condition [...] 24 cancelled patient objection Alexx Garcia MD [address] [address], [place], [address], [place] - Dr. Tomi Quezada 10/03/2023 18:30:12 Influenza, MDCK, quadrivalent, preservative 10/03/19 24 cancelled patient objection Alexx Garcia MD [address] [address], [place], [address], [place] - Dr. Tomi Quezada 10/03/2023 18:30:12 COVID-19, mRNA, LNP-S, PF, 30 mcg/0.3 mL dose 06/21/19 21 completed DAVID Joseph - Dr. Tomi Quezada 09/26/2022 14:36:31 COVID-19, mRNA, LNP-S, PF, 30 mcg/0.3 mL dose 07/20/19 21 completed DAVID Joseph - Dr. Tomi Quzeada 09/26/2022 14:36:35 Tdap 05/21/19 19 completed DAVID Joseph - Dr. Tomi Quezada 09/26/2022 14:49:53 Influenza, MDCK, trivalent, preservative 01/24/20 24 cancelled patient objection Maritza Vida, GIRL FRIDAY [address], [place], [address], [place] - Dr. Tomi Quezada 01/24/2024 17:42:28 Influenza, MDCK, trivalent, preservative 02/07/20 24 cancelled patient objection Maritza Vida, GIRL FRIDAY [address], [place], [address], [place] - Dr. Tomi Quezada 02/08/2024 11:15:01 Influenza, MDCK, trivalent, preservative 03/21/20 24 cancelled patient objection MADELEINE WEISS [address], [place], [address], [place] - Dr. Tomi Quezada 03/21/2024 17:11:37 RSV, bivalent, protein subunit RSVpreF, diluent reconstituted, 0.5 mL, PF 03/03/20 completed DAVID Coreas - Dr. Tomi Quezada 04/03/2025 14:43:18 influenza nasal, unspecified formulation 06/06/19 completed DAVID Coreas - Dr. Tomi Quezada 04/03/2025 14:45:37 Influenza, MDCK, trivalent, PF 08/21/19 cancelled patient objection MADELEINE WEISS [address], [place], [address], [place] - Dr. Tomi Quezada 08/20/2024 10:44:31 Influenza, MDCK, trivalent, preservative 11/27/19 25 cancelled patient objection Carlin Patterson NP [address], [place], [address], [place] - Dr. Tomi Quezada 11/26/2024 17:55:55 COVID-19, mRNA, LNP-S, PF, aldo-sucrose, 30 mcg/0.3 mL 11/27/19 25 cancelled patient objection Carlni Patterson NP [address], [place], [address] Dr. Tomi Quezada 11/26/2024 17:55:55 Past Encounters Encounter ID Performer Location Encounter Start Date Encounter Closed Date Diagnosis/Indication Diagnosis SNOMED-CT Code Diagnosis ICD10 Code Diagnosis IMO Codes Diagnosis Note [id number] Alexx Garcia MD [facility] [address], [facility] [address] [place] [address] 09/26/2022 13:49:10 09/26/2022 15:29:16 Body mass index 30+ - obesity 574816855 Z68.33 33.8 Adult heal th examination 701079058 Z00.01 Screening for cardiovascular system disease 962652804 Z13.6 Depression screening 171 959494 Z13.31 Hepatitis C screening 41 8123134 Z11.59 Active immunization 3387 9002 Z23 up to date Obesity 394513862 E66.09 Z71.3 Z71.82 Diet should be balanced including plenty of vegetables , proteins and healthy fats such as olive oil, avocado, nuts. Limit calories to the minimum from refined carbohydra jackie and eliminate processed foods. Exercise as tolerated, goal of total weekly 150min to include cardio-vas cular exercise and resistance -training exercise. Low back pain 825524060 M54.50 Chronic pancreatitis 235 441847 K86.1 follows pain management and GI Hyperlipid emia screening 345351614 Z13.220 Screening for disorder 052204289 Z13.29 Screening for endocrine disorder, including Hypothyroi dism. Vitamin D deficiency 347 32766 E55.9 Screening for Vitamin D deficiency ; optimal level 50 - 100. Vitamin B1 2 deficiency (non anemic) 95632589 E53.8 Screening for B12 deficiency ; optimal level > 500. [id number] Alexx Garcia MD [facility]IMARY [facility] [address], [facility] [address] [place] [address] 11/27/2022 13:22:20 11/27/2022 15:06:09 Depression screening 936125540 Z13.31 Hepatitis C screening 41 7912326 Z11.59 Body mass index 30+ - obesity 124531215 Z68.33 33.5 Chronic pancreatitis 235 764311 K86.1 Elevated blood-pressure reading without diagnosis of hypertension 061641390 R03.0 Blood pressure has been elevated in clinical setting. No history of HTN. Lifestyle measures recommende d, DASH diet, exercise program. Recommende d to monitor blood pressure outside the clinic x 2 week and inform us of the results. Nonpuerper al abscess of right breast 9435623559 4688070 N61.1 will treat with abx and send for US Screening mammography of bilateral breasts 0279618193 25433 Z12.31 Low back pain 682089000 M54.50 insurance wont cover 6mg tablet of tizanidine , will send separate 4mg and 6 mg [id number] Tomi Quezada MD [facility]IMARY [facility] [address], [facility] [address] [place] [address] 01/19/2023 15:14:12 01/19/2023 17:16:54 Chronic pancreatitis 076160895 K86.1 refer to pain managment Influenza vaccination declined 737065849 Z28.21 Depression screening 171 505666 Z13.31 Vitamin D deficiency 347 28947 E55.9 Patient had low vitamin D levels.Cou nseled about mild sun exposure being aware of skin cancer risk.Recom mended resistance training exercises for osteoporos is prevention .Prescribe d vitamin D 3 50,000 units weekly.Roberto l monitor vitamin D levels at 6 - 12 months. Vitamin B1 2 deficiency (non anemic) 01382211 E53.8 Low vitamin B12,goal > 500Recomme nded b12 inj protocol of once per week # 4Will retest B12 level during annual exam Mixed hyperlipidemia 267 038275 E78.2 Lifestyle modificati ons discussed including weight loss, aerobic exercise at least 30 min/day at least 5 days per week, and a diet rich in fruit and vegetables . Goal LDL: <100mg/dL, <70mg/dL. Will continue to follow lipid panel q6-12 months. Low back pain 696901245 M54.50 [id number] Alexx Garcia MD [facility] [address], [facility] [address] [place] [address] 01/24/2023 12:16:48 01/24/2023 13:15:45 Chronic pancreatitis 180956029 K86.1 referred to pain management and GIGiven short term - 7 days of apap/codei ne;Patient verbalizes understand ing that she has to establish care with pain management and GI, since we do not do chronic pain.State s having issues with her insurance to find coverage. Depression screening 171 202532 Z13.31 Conjunctivitis 7160323 H 10.9 [id number] Alexx Garcia MD [facility] [address], [address] [address] 02/01/2023 13:36:12 02/01/2023 16:17:58 Chronic pancreatitis 058312397 K86.1 eferred to pain management and GIGiven short term - 7 days of apap/codei ne;Patient verbalizes understand ing that she has to establish care with pain management and GI, since we do not do chronic pain.State s having issues with her insurance to find coverage.h as appt Nov w/Dr Martinez, will see if appt can be moved earlier Depression screening 171 Z13.31 Influenza vaccination declined 695698528 Z28.21 [id number] Alexx Garcia MD [facility] [address] [address] 02/19/2023 12:20:17 02/19/2023 13:59:52 Chronic pancreatitis 909165788 K86.1 referred to pain management and GIPatient [...] if having pain 02/27. Influenza vaccination declined 971724404 Z28.21 Depression screening 171 Z13.31 Hepatitis C screening 41 4193678 Z11.59 [id number] Tomi Quezada MD [facility] [address], [address] [address] 02/20/2023 13:53:51 02/20/2023 15:07:59 Depression screening 774971549 Z13.31 Influenza vaccination declined 509720738 Z28.21 Chronic pancreatitis 235 489683 K86.1 pending [place] pain [place] refer to GI Seen in [facility] 682385945 Z76.89 went to er visit [facility] 02/19/2023 discharged same day for chronic pancreatis [place] pain [place] [id number] Tomi Quezada MD [facility] [address], [address] [address] 02/26/2023 14:48:47 02/27/2023 12:31:37 Hospital inpatient stay within past 30 days 2377554192 106 Z76.89 Depression screening 171 233484 Z13.31 Influenza vaccination declined 551715294 Z28.21 Chronic no nspecific abdominal pain 978850290 R10.9 pt has been on chronic opiods [...] her pain is identified . Opioid dependence 055473 00 F11.20 see above Benzodiaze pine dependence 770907631 F13.20 see above [id number] Alexx Garcia MD [facility] [address], [email or web address] [place] [address] 06/06/2023 15:26:57 06/06/2023 16:23:34 Influenza vaccination declined 125419858 Z28.21 Depression screening 171 986218 Z13.31 Hepatitis C screening 41 3671650 Z11.59 Diarrhea 35769099 R19.7 Advised patient to seek emergency treatment [...] this is the case. Acute gastroenteritis 69 636194 K52.9 ED warnings reviewed with patient [id number] Alexx Garcia MD [facility] [address] [address] 08/23/2023 13:17:41 08/23/2023 14:21:08 Depression screening 605682808 Z13.31 Influenza vaccination declined 545776421 Z28.21 Essential hypertension 18468625 I10 Adult heal th examination 577303501 Z00.01 Hyperlipid emia screening 197162198 Z13.220 Screening for cardiovascular system disease 915461657 Z13.6 Screening for disorder 615580655 Z13.9 Screening for endocrine disorder, including hypogonadi sm. Hepatitis C screening 41 4973714 Z11.59 Vitamin D deficiency 347 30450 E55.9 Screening for vit D deficiency , optimal level between 50 - 100 Vitamin B1 2 deficiency (non anemic) 85269894 E53.8 Screening for vit B12 deficiency ; optimal level > 500 Screening for malignant neoplasm of cervix 248877811 Z12.4 Chronic pancreatitis 235 693973 K86.1 Referred to pain management and GI Opioid dependence 518573 00 F11.20 follows pain management [id number] Alexx Garcia MD [facility] [address] [address] 10/03/2023 15:42:50 10/03/2023 18:34:27 Screening for malignant neoplasm of colon 326351721 Z12.11 Active or passive immunization 021265996 Z23 Depression screening 171 726812 Z13.31 Renewal of prescription 705279164 Z76.0 Opioid dependence 973080 00 F11.20 follows pain management Benzodiaze pine dependence 581063973 F13.20 Influenza vaccination declined 976785241 Z28.21 Body mass index 30+ - obesity 801747603 Z68.33 33.5 Mixed hyperlipidemia 267 064997 E78.2 Chronic pancreatitis 235 264585 K86.1 Referred to pain management and GI Chronic no nspecific abdominal pain 226711193 R10.9 Low back pain 923359175 M54.50 follows pain management , Dr Christy [id number] Alexx Garcia MD [facility] [address], [address] [address] 10/17/2023 14:43:36 10/17/2023 15:34:51 Body mass index 30+ - obesity 605001381 Z68.33 33.6 Screening for malignant neoplasm of colon 239670271 Z12.11 Mixed hyperlipidemia 267 818806 E78.2 emphaiszed low fat/high fiber diet and regular exercise routine. monitor lipids Vitamin B1 2 deficiency (non anemic) 13312560 E53.8 recommend otc vitamin b12 100mg once daily Vitamin D deficiency 347 35884 E55.9 refill vitamin d supplement Essential hypertension 95746888 I10 increase losartan 100mg once daily; emphasized low sodium diet and regular exercise routine Screening mammography 24 765075 Z12.31 [id number] Alexx Garcia MD [facility] [address] [place] [address] 11/07/2023 14:21:18 11/07/2023 16:26:07 Mixed hyperlipidemia 937283973 E78.2 emphasized low fat/high fiber diet and regular exercise routine. monitor lipids Transition of care 04564 15297 105 Z75.8 see htn plan Obesity 401317080 E66.09 Z71.3 Z71.82 Diet should be balanced including plenty of vegetables , proteins and healthy fats such as olive oil, avocado, nuts. Limit calories to the minimum from refined carbohydra jackie and eliminate processed foods. Exercise as tolerated, goal of total weekly 150min to include cardio-vas cular exercise and resistance -training exercise. Body mass index 30+ - obesity 517566648 Z68.33 32.6 Depression screening 171 075663 Z13.31 Screening for malignant neoplasm of colon 717624143 Z12.11 Essential hypertension 41332447 I10 continue losartan. add amlodipine 5mg once daily. emphasized low sodium diet and regular exercise routine. f/u 2 weeks Vitamin D deficiency 347 65844 E55.9 continue vitamin d supplement Chronic pancreatitis 235 852878 K86.1 has appt with gi 11/2023 Vitamin B1 2 deficiency (non anemic) 62877104 E53.8 recommend otc vitamin b12 100mg once daily Lesion of oral mucosa 10 66174044 060886 K13.70 h/o oral thrush; treat empiricall y with nystatin [id number] Alexx Garcia MD [facility] [address] [address] 01/01/2024 17:32:07 01/01/2024 18:59:38 Body mass index 30+ - obesity 981567006 Z68.32 32.6 Depression screening 171 215530 Z13.31 Screening for malignant neoplasm of colon 043483930 Z12.11 Allergy to food 00988115 1 T78.1XXA recommend to avoid seafoodsen d refill on epinephrin e for emergency usage Chronic pancreatitis 235 054519 K86.1 referred to pain management and GIPatient [...] go to ER if having pain 02/27. [id number] Alexx Garica MD [facility]IMARY [facility] [address], [address] [address] 01/24/2024 12:55:13 01/24/2024 14:36:30 Essential hypertension 67263137 I10 also on Losartan 100mg Depression screening 171 Z13.31 Body mass index 30+ - obesity 544070024 Z68.32 Patient counseled about healthy diet, eating plan should include lots of vegetables , healthy fats including olive oil, avocado; avoiding refined sugars and processed foods/ trans fats. Transition of care 52522 98400 105 Z75.8 Obesity 712762687 E66.09 Z71.3 Z71.82 Diet should be balanced including plenty of vegetables , proteins and healthy fats such as olive oil, avocado, nuts. Limit calories to the minimum from refined carbohydra jackie and eliminate processed foods. Exercise as tolerated, goal of total weekly 150min to include cardio-vas cular exercise and resistance -training exercise. Renewal of prescription 971325777 Z76.0 Influenza vaccination declined 981726160 Z28.21 Screening for malignant neoplasm of colon 099428597 Z12.11 Tachycardia 1289070 R00. 0 Alarm ER warnings for increased hr, palpitatio ns, chest pain, or dizziness [id number] Alexx Garcia MD [facility] [address] [address] 01/31/2024 14:49:15 01/31/2024 15:25:06 Mixed hyperlipidemia 383125404 E78.2 discussed diet and lifestyle modificati ons; more fish, chicken fresh fruits and vegetables ; avoid high animal fat foods, processed foods and trnasfats; exercise daily; maintain healthy weight Depression screening 171 929875 Z13.31 Essential hypertension 51190949 I10 also on Losartan 100mg and amlodipine 5mg- ED warnings discussed if no improvemen t and worsening headache; saw cardiology and is wearing halter monitor [id number] Alexx Garcia MD [facility]IMARY [facility] [address] [address] 02/07/2024 14:39:55 02/07/2024 16:26:14 Renewal of prescription 883396031 Z76.0 Colonoscopy declined 140 5639333 77314 Z53.20 Influenza vaccination declined 311603062 Z28.21 Seizure disorder 8092275 02 G40.909 Low back pain 963978399 M54.50 Headache 58345492 R51.9 neurology referral given Essential hypertension 68283618 I10 also on Losartan 100mg and amlodipine 5mg, Metoprolol 50mg- now well controlled after increasing metoprolol to 50mg; ED warnings discussed if no improvemen t and worsening headache; saw cardiology and is wearing halter monitor [id number] Alexx Garcia MD PRIMARY CARE [address] [address] 03/21/2024 16:39:36 03/21/2024 17:15:45 Influenza vaccination declined 756207543 Z28.21 Depression screening 171 104753 Z13.31 Body mass index 30+ - obesity 610966590 Z68.33 32.1 Acute conjunctivitis 537 36068 H10.31 start vigamox as directed. rtc if no improve, new or worsening symptoms [id number] Alexx Garcia MD PRIMARY CARE [address] [address] 03/28/2024 14:50:31 03/28/2024 16:36:05 Screening mammography 25162699 Z12.31 DONE 12/19/2023 Screening for cardiovascular system disease 354349813 Z13.6 Screening for malignant neoplasm of colon 741676829 Z12.11 NEVER DONE Hepatitis C screening 41 2331860 Z11.59 Depression screening 171 560800 Z13.31 Screening for malignant neoplasm of cervix 054488888 Z12.4 05/21/2015 Body mass index 30+ - obesity 953415795 Z68.32 32.1 Abdominal pain 89049461 R10.9 Chronic pancreatitis 235 713018 K86.1 Following pain mgmt but having a flare up pain is 02/27will give short supply of hydrocodon e till sunday and needs to make appt ZOILA with pain specialist as today he is out of officepati ent had 4 narcan sprays gave ER warnings and when to use spray Essential hypertension 24656523 I10 BP Uncontroll ed, patient in pain which can affect bppt also instructed by cardiologi to take extra amlodipine for bp control [id number] Alexx Garcia MD [facility] [place] [facility], [facility] [address] [place] [address] 04/10/2024 16:14:50 04/10/2024 16:43:42 Screening mammography 84808869 Z12.31 12/19/2023 Hepatitis C screening 41 1214019 Z11.59 06/06/2023 Depression screening 171 388000 Z13.31 Active or passive immunization 501450460 Z23 Screening for malignant neoplasm of cervix 159728309 Z12.4 2015 Body mass index 30+ - obesity 058885917 Z68.33 32.1 Essential hypertension 88733361 I10 continue losartan. add amlodipine 5mg once daily and increase to twice daily. emphasized low sodium diet and regular exercise routine. f/u 5 days. ER warnings given--pat ient voiced understand ing Mixed hyperlipidemia 267 774381 E78.2 emphasized low fat/high fiber diet and regular exercise routine. monitor lipids Chronic pain 54469758 G8 9.29 improved pain; bp still elevated. following pain management [id number] Alexx Garcia MD [facility] [place] [address] [facility], [address] [address] 04/25/2024 13:53:18 04/25/2024 14:28:59 Mixed hyperlipidemia 542974481 E78.2 emphasized low fat/high fiber diet and regular exercise routine. monitor lipids Screening mammography 24 199989 Z12.31 12/19/2023 Screening for malignant neoplasm of colon 525619444 Z12.11 Hepatitis C screening 41 7722726 Z11.59 06/06/2023 Depression screening 171 639574 Z13.31 Screening for malignant neoplasm of cervix 530742347 Z12.4 2016 Essential hypertension 48224042 I10 continue current medication s. add hctz 12.5mg once daily. continue home monitoring [id number] Alexx Garcia MD PRIMARY CARE [address], [address] [address] 05/08/2024 12:43:15 05/08/2024 13:11:09 Screening mammography 71908600 Z12.31 12/19/2023 Hepatitis C screening 41 9129876 Z11.59 06/06/2023 Depression screening 171 647754 Z13.31 Screening for malignant neoplasm of cervix 575509509 Z12.4 2016; total hysterecto my Renewal of prescription 049750896 Z76.0 refills sen Essential hypertension 36328688 I10 continue current medication s. add hctz 12.5mg once daily. restart clonidine 0.1mg once daily. following cardiology Chronic pancreatitis 235 367943 K86.1 has appt with gi 11/2023 Mixed hyperlipidemia 267 339903 E78.2 emphasized low fat/high fiber diet and regular exercise routine. monitor lipids Vitamin D deficiency 347 31417 E55.9 continue vitamin d supplement Syncope 137341942 R55 re-refer to neurology; following EP as well [id number] Alexx Garcia MD PRIMARY CARE [address], [address] [address] 06/04/2024 14:08:18 06/04/2024 15:46:41 Hospital inpatient stay within past 30 days 1038229492 106 Z76.89 see chronic pancreatit is plan Screening mammography 24 357783 Z12.31 12/19/2023 Hepatitis C screening 41 7003157 Z11.59 06/06/2023 Depression screening 171 768064 Z13.31 Screening for malignant neoplasm of cervix 662667049 Z12.4 2016; total hysterecto my Chronic pancreatitis 235 215320 K86.1 continue current pain control. f/u with pain specialist tomorrow. refer to GI. continue hospital discharge medication s given Essential hypertension 27158216 I10 will restart losartan. continue home monitoring of bp . low sodium diet emphasized . [id number] Alexx Garcia MD PRIMARY CARE [address], [address] [address] 06/25/2024 15:49:32 06/25/2024 16:18:36 Chronic pancreatitis 730304081 K86.1 continue current pain control. f/u with pain specialist tomorrow. refer to GI. continue hospital discharge medication s given Hospital i npatient stay within past 30 days 3502979048 106 Z76.89 see chronic pancreatit is plan Screening mammography 24 791416 Z12.31 12/19/2023 Screening for malignant neoplasm of colon 415891867 Z12.11 Hepatitis C screening 41 9045658 Z11.59 06/06/2023 Depression screening 171 741350 Z13.31 Active or passive immunization 111810171 Z23 Screening for malignant neoplasm of cervix 083938076 Z12.4 2016; total hysterecto my [id number] Alexx Garcia MD PRIMARY CARE [address], [facility] [address] [place] [address] 07/09/2024 16:23:18 07/09/2024 17:04:39 Active or passive immunization 372039272 Z23 Essential hypertension 83856857 I10 refused to restart any medication s at this time or restart remote bp monitoring system. Will f/u with cardiology Body mass index 30+ - obesity 589814782 Z68.31 31.3 Chronic pancreatitis 235 400790 K86.1 continue current pain control. f/u with pain specialist tomorrow. pending appointmen t with dr gamble in gi . continue hospital discharge medication s given Mixed hyperlipidemia 267 910461 E78.2 emphasized low fat/high fiber diet and regular exercise routine. monitor lipids Vitamin D deficiency 347 11723 E55.9 continue vitamin d supplement [id number] Alexx Garcia MD PRIMARY CARE [address] [address] 08/20/2024 10:01:37 08/20/2024 10:48:27 Screening mammography 91873209 Z12.31 12/19/2023 Screening for malignant neoplasm of cervix 943049923 Z12.4 2016; total hysterecto my Active or passive immunization 900267484 Z23 up to date Vaccine de clined by patient 6332988357 02 Z28.20 Depression screening 171 555716 Z13.31 negative Patient counseled 224924 003 Z71.9 Body mass index 30+ - obesity 983597196 Z68.31 31.3 Leukocytosis 430655002 D 72.829 recheck lab today Panniculitis 97737826 M7 9.3 chronic abdominal pain. see chronic pancreatit is plan Chronic pancreatitis 235 668014 K86.1 continue current pain control. f/u with pain specialist tomorrow. pending appointmen t with dr gamble in gi . continue hospital discharge medication s given Essential hypertension 92020043 I10 will start low dose amlodipine . Will f/u with cardiology . emphasized low sodium diet and regular exercise routine as able/brandy ated Mixed hyperlipidemia 267 739794 E78.2 emphasized low fat/high fiber diet and regular exercise routine. monitor lipids Insomnia 448158315 G47.0 0 start hydroxyzin e as directed. sleep hygiene reviewed with patient. [id number] Alexx Garcia MD PRIMARY CARE [address] [address] 08/28/2024 16:52:28 08/28/2024 17:44:46 Depression screening 671275931 Z13.31 negative Screening for malignant neoplasm of cervix 003708336 Z12.4 2016; total hysterecto my Hypoglycemia 607469129 E 16.2 rx sent for glucometer + supplies [id number] Alexx Garcia MD PRIMARY CARE [address], [address] [address] 09/15/2024 13:28:51 09/15/2024 15:15:12 Hospital inpatient stay within past 30 days 6486789695 106 Z76.89 see gastric ulcer plan Patient counseled 216302 003 Z71.9 Upper gastrointestinal bleeding 00076599 K92.89 on ppi bid. no nsaids. bland diet recommende d. refer for GI f/u Gastric ulcer 567381419 K25.9 continue ppi. no nsaids. f/u with GI. ER warnings given--voi rj understand ing Pain of ri ght knee joint 7052422304 65053 M25.561 refer to ortho for f/u [id number] Tomi Quezada MD PRIMARY CARE [facility] [address] [place] [address], [facility] [address] [place] [address] 10/16/2024 13:24:25 10/16/2024 14:51:44 Screening mammography 23420873 Z12.31 DONE 12/19/2023 Screening for malignant neoplasm of colon 994774618 Z12.11 NEVER DONE Depression screening 171 913822 Z13.31 negative Active or passive immunization 294827677 Z23 tdap up to date Screening for malignant neoplasm of cervix 595755997 Z12.4 05/21/2015 Patient counseled 699037 003 Z71.9 Overweight in adulthood with body mass index of 25 or more but less than 30 938446880 Z68.29 097207 29.1 Gastroesop hageal reflux disease 789775065 K21.9 41129654 start on PPIhas appt in november with gastro will try to move up earlier Hypoglycemia 264438061 E 16.2 74561 will send continuous CGMpt has glucose tabs at home Low back pain 286689244 M54.50 insurance wont cover 6mg tablet of tizanidine , will send separate 4mg and 6 mg Nausea and vomiting 1692 1999 R11.2 022049 Patient was seen in the office today for nausea. Reviewed history regarding recent illness, medication s, symptoms, and physical exam. Studies ordered as below. Discussed plan with patient, who expresses understand ing. Follow up as noted below.on promethazi ne and scopalamin e Polypharmacy 980281083 Z 79.899 022368 multiple pain medsfollow s pain mgmthas been having nausea and vomiting [id number] Tomi Quezada MD [facility] [place] [address] [facility], [facility] [address] [place] [address] 11/26/2024 16:11:47 11/26/2024 17:57:02 Screening mammography 11149501 Z12.31 12/19/2023 Screening for malignant neoplasm of colon 803500194 Z12.11 NEVER DONE Hepatitis C screening 41 8404704 Z11.59 Depression screening 171 213085 Z13.31 Active or passive immunization 870312420 Z23 tdap up to date Screening for malignant neoplasm of cervix 438126411 Z12.4 05/21/2015 Patient counseled 715079 003 Z71.9 Renewal of prescription 687064922 Z76.0 promethazi ne, tazanidine , scopolamin e Hospital i npatient stay within past 30 days 6201330625 106 Z76.89 [facility] Overweight in adulthood with body mass index of 25 or more but less than 30 993033231 Z68.29 434383 29.5 Medication declined 4061 02637 Z28.21 2622345388 Chronic pancreatitis 235 080825 K86.1 Following pain mgmt but having a flare up pain is 02/27will give short supply of hydrocodon e till sunday and needs to make appt ZOILA with pain specialist as today he is out of officepati ent had 4 narcan sprays gave ER warnings and when to use spray Low back pain 550738189 M54.50 insurance wont cover 6mg tablet of tizanidine , will send separate 4mg and 6 mg Hypoglycemia 730397207 E 16.2 36752 will send continuous CGMpt has glucose tabs at home Screening for cardiovascular system disease 592706729 Z13.6 Z13.1 Hyperlipid emia screening 164982458 Z13.220 Fatigue 07644671 R53.83 6485544 Screening for endocrine disorder, including Hypothyroi dism. Vitamin D deficiency 347 95268 E55.9 Screening for Vitamin D deficiency ; optimal level 50 - 100. Vitamin B1 2 deficiency (non anemic) 99583415 E53.8 Screening for B12 deficiency ; optimal level > 500. Diabetes m ellitus screening 743621655 Z13.1 2654613 [id number] Tomi Quezada MD PRIMARY CARE [facility] [address] [facility], [address] [place] [address] 12/11/2024 14:54:26 12/11/2024 17:17:08 Screening mammography 88918827 Z12.31 12/19/2023 Screening for malignant neoplasm of colon 175297393 Z12.11 NEVER DONE Hepatitis C screening 41 2196416 Z11.59 Depression screening 171 798342 Z13.31 negative Active or passive immunization 673703006 Z23 tdap up to date Screening for malignant neoplasm of cervix 831802229 Z12.4 05/21/2015 Patient counseled 526039 003 Z71.9 Overweight in adulthood with body mass index of 25 or more but less than 30 998121453 Z68.29 917451 29.5 Transition of care 84608 23215 105 Z75.8 Gastroesop hageal reflux disease 373184868 K21.9 83745309 on PPI and carafate QID 1mghas appt in november with gastro will try to move up earlier Chronic pancreatitis 235 199914 K86.1 Following pain mgmt but having a flare up pain is 10/will give short supply of hydrocodon e till sunday and needs to make appt ZOILA with pain specialist as today he is out of officepati ent had 4 narcan sprays gave ER warnings and when to use spray Low back pain 026794784 M54.50 insurance wont cover 6mg tablet of tizanidine , will send separate 4mg and 6 mg Hematemesis 9842916 K92. 0 3563244469 [id number] Tomi Quezada MD PRIMARY CARE [address] [address] 01/27/2025 14:22:34 01/27/2025 15:43:11 Screening for malignant neoplasm of colon 522309732 Z12.11 12/06/2024 FECAL Depression screening 171 Z13.31 negative Immunization due 8105990 08 Z23 9600377 tdap, flu & covid UP TO DATE. Screening for malignant neoplasm of cervix 214768268 Z12.4 05/21/2015 Body mass index 30+ - obesity 384205927 Z68.30 766991 30.7 Bacterial sinusitis 7034 98676 J32.9 B96.89 2029829 will treat as belowconti nue with flonase [id number] Alexx Garcia MD PRIMARY CARE [address], [address] [address] 01/29/2025 10:53:44 01/29/2025 11:14:16 Screening mammography 67189389 Z12.31 12/19/2023 Depression screening 171 920001 Z13.31 negative Body mass index 30+ - obesity 704404574 Z68.30 293926 30.7 Acute maxi llary sinusitis 04625743 J01.00 63583750 refer to stat CT. If unable to have CT done today recommend patient go to ER or if new or worsening symptoms. continue augmentin [id number] Alexx Garcia MD [facility] [place] [address] [facility], [facility] [address] [place] [address] 01/30/2025 14:38:34 01/30/2025 15:05:49 Screening mammography 44969761 Z12.31 12/19/2023 Depression screening 171 018349 Z13.31 negative Infection of tooth 41107 8007 K04.7 833901 continue augmentin, refer to [facility]. send CT to other radiology clinictake tylenol/ib uprofen as directed for pain. ER warnings reiterated --voiced understand ing [id number] Alexx Garcia MD PRIMARY CARE [facility] [id number] [place] [address], [address] [place] [address] 02/02/2025 13:34:49 02/02/2025 15:52:38 Screening mammography 12879576 Z12.31 has order from 01/30/2025 Screening for malignant neoplasm of colon 803684888 Z12.11 FIT 11/2024 - colonoscop y has order from 11/2024 Depression screening 171 141774 Z13.31 Immunization due 3670282 08 Z23 5456188 Counseling 507645003 Z71 .89 01528556 Patient was seen in dental clinic 02/02/2025 [...] be ordered on 02/02/2025 Renewal of prescription 378400758 Z76.0 Infection of tooth 30491 8007 K04.7 185792 Chronic pancreatitis 235 165734 K86.1 Low back pain 236783317 M54.50 patient requesting stronger medication s for her chronic pain- advised she needs to follow up with paint stripper and have a dental assessment for mouth pain [id number] Alexx Garcia MD [facility] [place] [address] [facility], [facility] [address] [place] [address] 03/04/2025 12:42:29 03/04/2025 14:40:23 [id number] Alexx Garcia MD [facility] [place] [facility] [address], [address] [place] [address] 03/04/2025 15:28:27 03/04/2025 17:32:22 Screening mammography 52633503 Z12.31 12/19/2023 Screening for malignant neoplasm of colon 091688499 Z12.11 fecal 12/06/2024 Hepatitis C screening 41 1381658 Z11.59 Depression screening 171 100801 Z13.31 Immunization due 8082944 08 Z23 6468908 vaccines up to date Screening for malignant neoplasm of cervix 693703225 Z12.4 Counseling 043408472 Z71 .89 22499066 ER warnings given: patient to call 911 or go to nearest ER if severe chest pain, syncope, increased palpitatio ns, nausea, vomiting, LOC. Patinet verbalizes understand ing and agrees w plan.ER warnings given if abdominal pain, nausea, vomiting, fever, severe diarrhea, blood in stools, dark stools, blood in urine, syncope, chest pain, shortness of breath. Transition of care 80355 49970 105 Z75.8 03/02/2025 . scheduled f/u with GI on 03/16/2025 Body mass index 30+ - obesity 692915108 Z68.30 956089 30.8 Renewal of prescription 144052189 Z76.0 Infection of tooth 42797 8007 K04.7 163988 improved Low back pain 713592515 M54.50 patient requesting stronger medication s for her chronic pain- advised she needs to follow up with paint stripper and have a dental assessment for mouth pain Chronic no nspecific abdominal pain 126353554 R10.9 scheduled f/u with GI on 03/16/2025 Essential hypertension 95684518 I10 pt will call cardiologi st to scheduled appt today Had extensive conversati on with pain about HTN and medication . Pt verbalized understand ing risk of uncontroll ed HTN. Pt agreed to contact cardiologi st to scheduled appt. Pt will be started on amlodipine and losartan. Nausea and vomiting 1693 1999 R11.2 8437603281 Patient no ncompliance - general 139185701 Z91.199 173926 ER warnings given: patient to call 911 [...] will be started on amlodipine and losartan. [id number] Alexx Garcia MD PRIMARY CARE [address] [address] 04/03/2025 14:33:08 04/03/2025 17:42:55 Screening mammography 05141687 Z12.31 12/19/2023 order given 03/04/2025 Screening for malignant neoplasm of colon 673087094 Z12.11 fecal 12/06/2024 Hepatitis C screening 41 3641455 Z11.59 11/26/2024 Depression screening 171 463479 Z13.31 Immunization due 9581027 08 Z23 4868994 vaccines up to date Screening for malignant neoplasm of cervix 263056295 Z12.4 Counseling 512085648 Z71 .89 61902099 ER warnings given: patient to call 911 or go to nearest ER if severe chest pain, syncope, increased palpitatio ns, nausea, vomiting, LOC. Patinet verbalizes understand ing and agrees w plan.ER warnings given if abdominal pain, nausea, vomiting, fever, severe diarrhea, blood in stools, dark stools, blood in urine, syncope, chest pain, shortness of breath. Renewal of prescription 798673411 Z76.0 promethazi ne 25mgtizani dine 2 and 4 mgscopolam ine 1mg over 3 days transderma l patches Nausea and vomiting 3 1999 R11.2 Low back pain 421391106 M54.50 patient requesting stronger medication s for her chronic pain- advised she needs to follow up with paint stripper and have a dental assessment for mouth pain Motion sickness 07803185 T75.3XXA Essential hypertension 55565171 I10 pt will call cardiologi st to [...] Member ID Guarantor Name 04/10/2024 1 [employer] (O) [id number] Kasia Barber [id number] Kasia Barber 04/21/2025 1 [employer] (O) [id number] Kasia Barber [id number] Kasia Barber 04/10/2024 1 [employer] (O) [id number] Kasia Boatenger [id number] Kasia Barber Notes Date Note Type Note [...] symptoms Patient in for hospital f/u from [facility]--was in the ER (not admitted) Dx; Panniculitus Rx: unchanged, no new medications Current pain unchanged; reports always in pain due to chronic pancreatitisfollowing pain managementf/u with GI [facility] Gamble 11/2024denies chest pain, sob, fevers, chills, vomiting or diarrhea+nausea, abdominal pain Hospitalized at [facility] from 05/24/2024-06/04/2024 (request record)Patient went back to [facility] 06/08/2024-06/15/2024 for pancreatitis pain again. [...] recent divorceno longer following Dr Sr, at [facility] well and doesn't feel like needs medications at this timereports just having problems sleeping--would like something to help her sleep MADELEINE WEISS [address], [place], [address], [place] - Dr. Tomi Quezada 01/30/2025 15:04:04 5 text/htm l Transition Care ManagementReported by PatientHPIFor timing, patient reportsdate of discharge: (01/30/2025). For facility, patient reportsdischarged to: (home). For current caregivers, patient reportsself. For vdv-skif-qb-face services performed, patient reportsnot medically indicated. For [...] dental treatmentcould not get imaging performed at [facility] or [facility]- will send STAT order to [facility] 02/02/2025patient has had 3x [...] half tab daily Pancreatitis history/chronic pancreatitisHospitalized at [facility]06/04/2024 (request record)Patient went back to [facility] 06/08/2024-06/15/2024 for pancreatitis pain again. [...] management 4 days agof/u with GI at [facility]. Gamble 11/2024 Syncope history--has not recurredsuggested [...] [facility]'t feel like needs medications at this timereports just having problems sleeping--would like something to help her sleep JULIA MCDERMOTT [address], [place], [address], [place] - Dr. Tomi Quezada 02/02/2025 15:50:06 5 text/htm l Transition Care ManagementReported by PatientHPIFor timing, patient reportsdate of discharge: (01/30/2025). For facility, patient reportsdischarged to: (home). For current caregivers, patient reportsself. For xtq-nmdt-xq-face services performed, patient reportsnot medically indicated. For [...] in the medical record. pt went to [facility] on 02/28/2025-02/27/1403/03/2025 abd painpt report symptoms are [...] dental treatmentcould not get imaging performed at [facility] or [facility]- will send STAT order to [facility] 02/02/2025patient has had 3x [...] of uncontrolled HTN. Pt agreed to contact equipment maintenance supervisor to scheduled appt. Pt will be started on amlodipine and losartan. Pancreatitis history/chronic pancreatitisHospitalized at [facility]06/04/2024 (request record)Patient went back to [facility] 06/08/2024-06/15/2024 for pancreatitis pain again. [...] management 4 days agof/u with [facility] at [facility]. Gamble 11/2024 Syncope history--has not recurredsuggested [...] recent divorceno longer following Dr Sr, at [facility] well and doesn't feel like needs medications at this timereports just having problems sleeping--would like something to help her sleep LOURDES COLEMAN NP [address], [place], [address], [place] - Dr. Tomi Quezada 03/04/2025 16:57:19 5 text/htm l not seen- had to reschedule Maritza Mcpherson NP [address], [place], [address], [place] - Dr. Tomi Quezada 03/04/2025 14:40:22 [...] changes since last visit pt went to [facility] on 02/28/2025-02/27/1403/03/2025 abd pain - no changes [...] dental treatmentcould not get imaging performed at [facility] or [facility] radi[facility]- will send STAT order to [facility] 02/02/2025patient has had 3x [...] of uncontrolled HTN. Pt agreed to contact equipment maintenance supervisor to scheduled appt. Pt will be started on amlodipine and losartan. Pancreatitis history/chronic pancreatitisHospitalized at [facility] 05/24[facility]-06/04/2024 (request record)Patient went back to [facility] 06/08/2024-06/15/2024 for pancreatitis pain again. [...] management 4 [facility]of[facility] 11/2024 Syncope history--has not recurredsuggested [...] something to help her sleep LOURDES COLEMAN GIRL FRIDAY [address], [place], [address], [place] - Dr. Tomi Quezada 04/03/2025 17:28:12 OBGyn Episode No OBEpisode recorded.
--- OUTSIDE RECORDS SUMMARY | 2025-04-25 13:36 | XMS_ITS | Continuity of Care Document ---
Author Organization [place] - Dr. Tomi Quezada, [facility] Address [address] [address] Care Team Providers Care Sole Rounding Machine Operator Name Role Phone [facility] Pain Management Assessment Encounter Date [...] healthy living. Further treatment per orders below. [email or web address] Not available 03/04/2025 16:47:59 Plan of Treatment Reminders Order Date Submit Date Provider Last Modified By Organization Details Last Modified Time Details Appointments None recorded. Lab fecal occult blood, immunoass ay, stool 2024 025 ANTHONY [facility], [address], [address], [place], [address], 5 04:19:14 Referral gastroent erologist referral 2024 025 ANTHONY Not available 04:14:24 Procedures None recorded. Surgeries None recorded. Imaging MAMMO, screening , bilateral 2024 025 ANTHONY [facility], [address], [address], [place], [address], 04:02:40 Medication Orders promethaz ine 25 mg tablet 2024 [facility] #[id number], [address] [place], [address], 17:10:00 amlodipin e 5 mg tablet 2024 [facility] #[id number], [address] [place], [address], 16:57:37 losartan 100 mg tablet 2024 [facility] #[id number], [address] [place], [address], 17:10:35 Patient TargetsNo targets recorded. Patient InstructionsNo instructions recorded. Reason for Referral Newspaper Or Periodical Editor Referral for Screening for malignant neoplasm of colon Referring Physician: Lourdes Coleman, Family Medicine, Encounter Date: 03/04/2025 Results Created Date Observation Date Name Description Value Unit Range Abnormal Flag Note LastModifiedBy Organization Detail LastModifiedTime Result Notes None recorded. Problems Name Problem SNOMED Code Status Onset Date Resolution Date Notes Provider Name and Address Organization Details Recorded Time Acute pancreatitis 639270176 Active DAVID Solano - Dr. Tomi Quezada 16:24:31 Restless legs syndrome 93286944 Active DAVID Solano - Dr. Tomi Quezada 16:24:31 Migraine 88039404 Active DAVID Solano Dr. 16:24:31 Simple obesity 150990759 Active DAVID Solano Dr. 16:24:31 Chronic pancreatitis 854500457 Active 2022 LOURDES COLEMAN SENIOR COMPENSATION ANALYST [address], [place], [address], [place] - Dr. Tomi Quezada 5 15:56:21 Mixed hyperlipidemia 251236669 Active 2022 J[place]OD [place], [place] - Dr. Tomi Quezada 3 16:50:12 Vitamin B12 deficiency (non anemic) 22345336 Active 2022 J[place]OD [place], [place] - Dr. Tomi Quezada 3 16:50:13 Conjunctivitis 5108778 Active 2022 Alexx Garcia MD [address], [place], [address], [place] - Dr. Tomi Quezada 3 13:12:09 Chronic nonspecific abdominal pain 176406867 Active 2022 LOURDES COLEMAN NP [address], [place], [address], [place] - Dr. Tomi Quezada 5 16:51:48 Opioid dependence 33126835 Active 2022 Tomi Quezada MD [address], [place], [address], [place] - Dr. Tomi Quezada 3 21:55:27 Benzodiazepine dependence 986639635 Active 2022 Tomi Quezada MD [address], [place], [address], [place] - Dr. Tomi Quezada 3 21:55:46 Low back pain 664797147 Active 2023 LOURDES COLEMAN NP [address], [place], [address], [place] - Dr. Tomi Quezada 5 15:56:21 Tachycardia 2271158 Active 2023 Maritza Mcpherson NP [address], [place], [address], [place] - Dr. Tomi Quezada 4 17:47:04 Seizure disorder 988007741 Active 2023 Maritza Mcpherson NP [address], [place], [address], [place] - Dr. Tomi Quezada 4 11:16:55 Headache 05947419 Active 2023 Maritza Mcpherson, SENIOR COMPENSATION ANALYST [address], [place], [address], [place] - Dr. Tomi Quezada 4 11:17:33 Essential hypertension 63205457 Active 2023 LOURDESDAVIDSON COLEMAN SENIOR COMPENSATION ANALYST [address], [place], [address], [place] - Dr. Tomi Quezada 16:50:08 Tooth infection 522114353 Active 2024 LOURDES COLEMAN NP [address], [place], [address], [place] - Dr. Tomi Quezada 15:56:21 Nausea and vomiting, unspecified vomiting type 71932218 Active 2024 LOURDES COLEMAN NP [address], [place], [address], [place] - Dr. Tomi Quezada 16:41:02 Motion sickness 51189906 Active 2024 LOURDES COLEMAN NP [address], [place], [address], [place] - Dr. Tomi Quezada [...] Name and Address Organization Details Recorded Time 55187 iodine medicatio n Not available Not available Not available 04/02/2025 5933 RxNorm Not Available [employer] - prod 19:27:15 51068 prednison e medicatio n Not available Not available Not available 04/02/2025 8640 RxNorm Not Available [employer] - prod 19:27:15 6339 shellfish derived food,medi cation Not available Not available Not available 09/26/[address] 3 14:35:17 8619 loperamid e medicatio n Not available Not available Not available 06/25/2024 6468 RxNorm Other react ions and sever ities : 'Weal (diso rder) '. DAVID Martin Dr. 5 10:07:15 8899 ketorolac medicatio n Not available Not available Not available 08/20/2024 [address] 5 10:07:15 Medications [...] Updated DateTime 03/04/2025 165.1 cm 30.8 kg/m2 55337.59 g 165.1 cm 30.8 kg/m2 15662.5 9 g BRIANA HERNANDEZ - Dr. Tomi Quezada 15:33:53 Social History Question Answer Notes LastModified by [employer] Details LastModified Time Tobacco Smoking Status Never Smoker DAVID Joseph - Dr. Tomi Quezada 09/26/2022 14:46:38 Do You Have An Advance Directive? No [email or web address] Information not available 09/26/2022 If You Are , What Was Your Level Of Alcohol Consumption Prior To ? None [email or web address] Information not available 09/26/2022 What Is Your Level Of Caffeine Consumption? Occasional Information not available 09/26/2022 What Type Of Diet Are You Following? REGULAR [email or web address] Information not available 09/26/2022 Do You Have A Medical Power Of Gyro Compass Tester? No Information not available 09/26/2022 How Many Children Do You Have? 1 [email or web address] Information not available 09/26/2022 Do You Have A Patient Advocate? No [email or web address] Information no t available 09/26/2022 What Is Your Relationship Status? [email or web address] Information not available 09/26/2022 Are You Sexually Active? No [email or web address] Information not available 09/26/2022 Do You Have Difficulty Walking Or Climbing Stairs? No [email or web address] Information not available 09/26/2022 Sex: Female Functional Status Question Answer Note LastModified by [employer] Details LastModified Time Do you use any illicit or recreational drugs? No [email or web address] Information not available 09/26/2022 Do you or have you ever used any other forms of tobacco or nicotine? No [email or web address] Information not available 09/26/2022 What is your level of alcohol consumption? None [email or web address] Information not available 09/26/2022 Are you currently employed? No [email or web address] Information not available 09/26/2022 What is your status? Not [email or web address] Information no t available 09/26/2022 Are you able to walk independently without assistance or assistive devices? YESWOREST [email or web address] Information not available 09/26/2022 Are you able to care for yourself independently? Yes [email or web address] Information not available 09/26/2022 What is your exercise level? Occasional [email or web address] Information not available 09/26/2022 Mental Status None recorded. Family History Relationship Description Onset Age of this Age Resolved Age Notes LastModified by Organization Details LastModified Time Paternal Grandfather Malignant neoplastic disease [email or web address] Not available 2022 14:46:24 Medical History Condition Response Coronary Artery Disease N Other N Thyroid Disease N High Blood Pressure N Hyperthyroidism N [...] objection Alexx Garcia MD [address], [place], [address], [place] - Dr. Tomi Quezada 10/03/2023 18:30:12 Influenza, MDCK, quadrivalent, preservative 10/03/19 24 cancelled patient objection Alexx Garcia MD [address], [place], [address], [place] - Dr. Tomi Quezada 10/03/2023 18:30:12 COVID-19, mRNA, LNP-S, PF, 30 mcg/0.3 mL dose 06/21/19 21 completed KEYLA CAMPOSOSTJet [place], [place] - Dr. Tomi Quezada 09/26/2022 14:36:31 COVID-19, mRNA, LNP-S, PF, 30 mcg/0.3 mL dose 07/20/19 21 completed KEYLA [place], [place] - Dr. Tomi Quezada 09/26/2022 14:36:35 Tdap 05/21/19 19 completed KEYLA [place], [place] - Dr. Tomi Quezada 09/26/2022 14:49:53 Influenza, MDCK, trivalent, preservative 01/24/20 24 cancelled patient objection Maritza Mcpherson NP [address], [place], [address], [place] - Dr. Tomi Quezada 01/24/2024 17:42:28 Influenza, MDCK, trivalent, preservative 02/07/20 24 cancelled patient objection Maritza Mcpherson NP [address], [place], [address], [place] - Dr. Tomi Quezada 02/08/2024 11:15:01 Influenza, MDCK, trivalent, preservative 03/21/20 24 cancelled patient objection CHASITY WEISS [address], [place], [address], [place] - Dr. Tomi Quezada 03/21/2024 17:11:37 RSV, bivalent, protein subunit RSVpreF, diluent reconstituted, 0.5 mL, PF 03/03/20 25 completed DAVID Coreas - Dr. Tomi Quezada 04/03/2025 14:43:18 influenza nasal, unspecified formulation 06/06/19 completed DAVID Coreas - Dr. Tomi Quezada 04/03/2025 14:45:37 Influenza, MDCK, trivalent, PF 08/21/19 25 cancelled patient objection CHASITY WEISS [address], [place], [address], [facility] - Dr. Tomi Quezada 08/20/2024 10:44:31 Influenza, MDCK, trivalent, preservative 11/27/19 25 cancelled patient objection Carlin Patterson NP [address], [place], [address], [facility] - Dr. Tomi Quezada 11/26/2024 17:55:55 COVID-19, mRNA, LNP-S, PF, aldo-sucrose, 30 mcg/0.3 mL 11/27/19 25 cancelled patient objection Carlin Patterson NP [address], [place], [address], [facility] - Dr. Tomi Quezada 11/26/2024 17:55:55 Past Encounters Encounter ID Performer Location Encounter Start Date Encounter Closed Date Diagnosis/Indication Diagnosis SNOMED-CT Code Diagnosis ICD10 Code Diagnosis IMO Codes Diagnosis Note [id number] Alexx Garcia MD [facility] [address] [place] [address] 02/02/2025 13:34:49 02/02/2025 15:52:38 Screening mammography 55054889 Z12.31 has order from 01/30/2025 Screening for malignant neoplasm of colon 631957900 Z12.11 FIT 11/2024 - colonoscop y has order from 11/2024 Depression screening 171 336143 Z13.31 Immunization due 9297034 08 Z23 7084326 Counseling 156078322 Z71 .89 [id number] Patient was seen in dental clinic 02/02/2025 [...] be ordered on 02/02/2025 Renewal of prescription 090598527 Z76.0 Infection of tooth 65117 8007 K04.7 389786 Chronic pancreatitis 235 929472 K86.1 Low back pain 854673573 M54.50 patient requesting stronger medication s for her chronic pain- advised she needs to follow up with paint brush maker and have a dental assessment for mouth pain [id number] Alexx Garcia MD [facility] [address] [facility], [facility] [address] [place] [address] 03/04/2025 12:42:29 03/04/2025 14:40:23 [id number] Alexx Garcia MD PRIMARY CARE [facility] [id number] [place] [address], [address] [place] [address] 03/04/2025 15:28:27 03/04/2025 17:32:22 Screening mammography 59779658 Z12.31 12/19/2023 Screening for malignant neoplasm of colon 779604169 Z12.11 fecal 12/06/2024 Hepatitis C screening 41 8812603 Z11.59 Depression screening 171 103988 Z13.31 Immunization due 6474463 08 Z23 1911283 vaccines up to date Screening for malignant neoplasm of cervix 556679427 Z12.4 Counseling 541155036 Z71 .89 [id number] ER warnings given: patient to call 911 or go to nearest ER if severe chest pain, syncope, increased palpitatio ns, nausea, vomiting, LOC. Patinet verbalizes understand ing and agrees w plan.ER warnings given if abdominal pain, nausea, vomiting, fever, severe diarrhea, blood in stools, dark stools, blood in urine, syncope, chest pain, shortness of breath. Transition of care 74230 35848 105 Z75.8 03/02/2025 . scheduled f/u with GI on 03/16/2025 Body mass index 30+ - obesity 153989975 Z68.30 534956 30.8 Renewal of prescription 807195140 Z76.0 Infection of tooth 68873 8007 K04.7 514748 improved Low back pain 802779980 M54.50 patient requesting stronger medication s for her chronic pain- advised she needs to follow up with paint brush maker and have a dental assessment for mouth pain Chronic no nspecific abdominal pain 815299881 R10.9 scheduled f/u with GI on 03/16/2025 Essential hypertension 95104433 I10 pt will call cardiologi st to scheduled appt today Had extensive conversati on with pain about HTN and medication . Pt verbalized understand ing risk of uncontroll ed HTN. Pt agreed to contact cardiologi st to scheduled appt. Pt will be started on amlodipine and losartan. Nausea and vomiting 1692 1999 R11.2 [id number] Patient no ncompliance - general 804011308 Z91.199 [id number] ER warnings given: patient to call 911 [...] ID Guarantor Name 03/04/2025 1 [employer] (O) [id number] Kasia Barber [id number] Kasia Sunil Notes Date Note Type Note Provider Name and Address Organization Details Recorded Time 5 text/htm l Transition Care ManagementReported by PatientHPIFor timing, patient reportsdate of discharge: (01/30/2025). For facility, patient reportsdischarged to: (home). For current caregivers, patient reportsself. For [id number]-face services performed, patient reportsnot medically indicated. For [...] in the medical record. [facility] went [facility]20[facility]-02/27/1403/03/2025 abd painpt report symptoms are [...] dental treatmentcould not get imaging performed [facility] or [facility]- will send STAT order to [facility] 02/02/2025patient has had 3x ER visit [...] severe pain.Pt denies chest pain, palpitations, dyspnea. Manager Med Surg - has not seen him since May [...] uncontrolled HTN. Pt agreed to contact public health service officer to scheduled appt. Pt will be started on amlodipine and losartan. Pancreatitis history/chronic pancreatitisHospitalized at [facility]04[facility]24 (request record)Patient went back to [facility] 06/08/2024-06/15/2024 for pancreatitis pain again. Always has [...] management [facility] Syncope history--has not recurredsuggested [...] her 20striggers: [facility]'t feel like needs medications at this timereports just having problems sleeping--would like something to help her sleep LOURDES COLEMAN NP [address], [place], [address], [place] - Dr. Tomi Quezada 03/04/2025 16:57:19 5 text/htm l not seen- had to reschedule Maritza Mcpherson NP [address], [place], [address], [place] - Dr. Tomi Quezada 03/04/2025 14:40:22 OBGyn Episode No OBEpisode recorded.
--- OUTSIDE RECORDS SUMMARY | 2025-04-25 13:36 | XMS_ITS | Clinical Summary ---
Author Organization Healthcare Address [address] [id number] Care Team Providers Care Dye Weigher Helper Name Role Phone Rae Frey APRN Primary Care Provider + [phone] Family History Medical History Relation Name Comments [...] of Treatment Not on file Care Teams Dye Weigher Helper Relationship Specialty Start Date End Date Rae Frey APRN [address] [place], [place] [id number] PCP - General 10/01/20
--- OUTSIDE RECORDS SUMMARY | 2025-04-25 13:37 | XMS_ITS | Continuity of Care Document ---
Author Organization [place] - Dr. Tomi Quezada, [facility] Address [address] [facility] Andrey GALINDO [facility] [address] [place] [address] Care Team Providers Care Electric Razor Assembler Name Role Phone [facility] Pain Management Assessment No assessment recorded. [...] Address Organization Details Recorded Time Acute pancreatitis 521576715 Active DAVID Solano - Dr. Tomi Quezada 5 16:24:31 Restless legs syndrome 96507438 DAVID Funez Dr. 5 16:24:31 Migraine 59700331 Active DAVID Solano - Dr. Tomi Quezada 5 16:24:31 Simple obesity 333010152 DAVID Funez Dr. 5 16:24:31 Chronic pancreatitis 634081924 Active [address] [facility] [address], [place], [address], [place] - Dr. Tomi Quezada 5 15:56:21 Mixed hyperlipidemia 249221182 Active 2022 DAVID Terrell - Dr. Tomi Quezada 3 16:50:12 Vitamin B12 deficiency (non anemic) 24397610 Active 2022 JERROD lutz [place] - Dr. Tomi Quezada 3 16:50:13 Conjunctivitis 7114591 Active 2022 Alexx Garcia MD [address], [place], [address], [place] - Dr. Tomi Quezada 3 13:12:09 Chronic nonspecific abdominal pain 219258865 Active 2022 JESUS PIMENTEL NP [address], [place], [address], [place] - Dr. Tomi Quezada 5 16:51:48 Opioid dependence 12826149 Active 2022 Tomi Queazda MD [address], [place], [address], [place] - Dr. Tomi Quezada 21:55:27 Benzodiazepine dependence 001823387 Active 2022 Tomi Quezada MD [address], [place], [address], [place] - Dr. Tomi Quezada 3 21:55:46 Low back pain 171034447 Active 2023 JESUS PIMENTEL NP [address], [place], [address], [place] - Dr. Tomi Quezada 5 15:56:21 Tachycardia 3295561 Active 2023 Maritza Mcpherson NP [address], [place], [address], [place] - Dr. Tomi Quezada 4 17:47:04 Seizure disorder 033408435 Active 2023 Maritza Mcpherson NP [address], [place], [address], [place] - Dr. Tomi Quezada 4 11:16:55 Headache 97631462 Active 2023 Maritza Mcpherson NP [address], [place], [address], [place] - Dr. Tomi Quezada 4 11:17:33 Essential hypertension 49828379 Active 2023 JESUS LOREN INDOOR LANDSCAPER/GARDENER [address], [place], [address], [place] - Dr. Tomi Quezada 16:50:08 Tooth infection 676608647 Active 2024 JESUS COLBERTVINO INDOOR LANDSCAPER/GARDENER [address], [place], [address], [place] - Dr. Tomi Quezada 15:56:21 Nausea and vomiting, unspecified vomiting type 84554157 Active 2024 JESUS COLBERTVINO INDOOR LANDSCAPER/GARDENER [address], [place], [address], [place] - Dr. Tomi Quezada 16:41:02 Motion sickness 59850027 Active 2024 JESUS COLBERTVINO INDOOR LANDSCAPER/GARDENER [address], [place], [address], [place] - Dr. Tomi Quezada [...] Name and Address Organization Details Recorded Time 17368 iodine medicatio n Not available Not available Not available 04/02/2025 5933 RxNorm Not Available vesna - External Data Service - prod 19:27:15 11168 prednison e medicatio n Not available Not [...] Not available Not available Not available 08/20/2024 27750 RxNorm DAVID Martin - Dr. Tomi Quezada [...] Updated DateTime 03/04/2025 165.1 cm 30.8 kg/m2 71599.59 g 165.1 cm 30.8 kg/m2 60246.5 9 g BRIANA HERNANDEZ - Dr. Tomi Quezada 15:33:53 Social History Question Answer Notes LastModified by [employer] Details LastModified Time Tobacco Smoking Status Never Smoker DAVID Joseph - Dr. Tomi Qeuzada 09/26/2022 14:46:38 Do You Have An Advance Directive? No [email or web address] Information not available 09/26/2022 If You Are , What Was Your Level Of Alcohol Consumption Prior To ? None [email or web address] Information not available 09/26/2022 What Is Your Level Of Caffeine Consumption? Occasional Information not available 09/26/2022 What Type Of Diet Are You Following? REGULAR [email or web address] Information not available 09/26/2022 Do You Have A Medical Power Of Ecological Technical Officer? No [email or web address] Information not available 09/26/2022 How Many Children Do You Have? 1 [email or web address] Information not available 09/26/2022 Do You Have A Patient Advocate? No [email or web address] Information no t available 09/26/2022 What Is Your Relationship Status? [email or web address] Information not available 09/26/2022 Are You Sexually Active? No [email or web address] Information not available 09/26/2022 Do You Have Difficulty Walking Or Climbing Stairs? No [email or web address] Information not available 09/26/2022 Sex: Female Functional Status Question Answer Note LastModified by [employer] Details LastModified Time Do you use any illicit or recreational drugs? No [email or web address] Information not available 09/26/2022 Do you or have you ever used any other forms of tobacco or nicotine? No [email or web address] Information not available 09/26/2022 What is your level of alcohol consumption? None [email or web address] Information not available 09/26/2022 Are you currently employed? No [email or web address] Information not available 09/26/2022 What is your status? Not [email or web address] Information no t available 09/26/2022 Are you able to walk independently without assistance or assistive devices? YESWOREST [email or web address] Information not available 09/26/2022 Are you able to care for yourself independently? Yes [email or web address] Information not available 09/26/2022 What is your exercise level? Occasional [email or web address] Information not available 09/26/2022 Mental Status None recorded. Family History Relationship Description Onset Age of this Age Resolved Age Notes LastModified by Organization Details LastModified Time Paternal Grandfather Malignant neoplastic disease [email or web address] Not available 2022 14:46:24 Medical History Condition [...] objection Alexx Garcia MD [address], [place], [address], [place] Dr. Tomi Quezada 10/03/2023 18:30:12 Influenza, MDCK, quadrivalent, preservative 10/03/19 24 cancelled patient objection Alexx Garcia MD [address], [place], [address], [place] - Dr. Tomi Quezada 10/03/2023 18:30:12 COVID-19, mRNA, LNP-S, PF, 30 mcg/0.3 mL dose 06/21/19 21 completed KEYLA TAPIA [place], [place] - Dr. Tomi Quezada 09/26/2022 14:36:31 COVID-19, mRNA, LNP-S, PF, 30 mcg/0.3 mL dose 07/20/19 completed KEYLA [place], [place] - Dr. Tomi Quezada 09/26/2022 14:36:35 Tdap 05/21/19 19 completed KEYLA [place], [place] - Dr. Tomi Quezada 09/26/2022 14:49:53 Influenza, MDCK, trivalent, preservative 01/24/20 24 cancelled patient objection Maritza Mcpherson, INDOOR LANDSCAPER/GARDENER [address], [place], [address], [place] - Dr. Tomi Quezada 01/24/2024 17:42:28 Influenza, MDCK, trivalent, preservative 02/07/20 24 cancelled patient objection Maritza Mcpherson, INDOOR LANDSCAPER/GARDENER [address], [place], [address], [place] - Dr. Tomi Quezada 02/08/2024 11:15:01 Influenza, MDCK, trivalent, preservative 03/21/20 24 cancelled patient objection CHASITY WEISS [address], [place], [address], [place] - Dr. Tomi Quezada 03/21/2024 17:11:37 RSV, bivalent, protein subunit RSVpreF, diluent reconstituted, 0.5 mL, PF 03/03/20 completed DAVID Coreas - Dr. Tomi Quezada 04/03/2025 14:43:18 influenza nasal, unspecified formulation 06/06/19 completed TALITA lutz [place] - Dr. Tomi Quezada 04/03/2025 14:45:37 Influenza, MDCK, trivalent, PF 08/21/19 25 cancelled patient objection CHASITY WEISS [address], [place], [address], [place] - Dr. Tomi Quezada 08/20/2024 10:44:31 Influenza, MDCK, trivalent, preservative 11/27/19 25 cancelled patient objection Carlin Patterson NP [address], [place], [address], [place] - Dr. Tomi Quezada 11/26/2024 17:55:55 COVID-19, mRNA, LNP-S, PF, aldo-sucrose, 30 mcg/0.3 mL 11/27/19 25 cancelled patient objection Carlin Patterson NP [address], [place], [address], [facility] - Dr. Tomi Quezada 11/26/2024 17:55:55 Past Encounters Encounter ID Performer Location Encounter Start Date Encounter Closed Date Diagnosis/Indication Diagnosis SNOMED-CT Code Diagnosis ICD10 Code Diagnosis IMO Codes Diagnosis Note [id number] Alexx Garcia MD [facility] [address] [place] [address] 02/02/2025 13:34:49 02/02/2025 15:52:38 Screening mammography 81930646 Z12.31 has order from 01/30/2025 Screening for malignant neoplasm of colon 785305806 Z12.11 FIT 11/2024 - colonoscop y has order from 11/2024 Depression screening 171 440589 Z13.31 Immunization due 2599209 08 Z23 0766923 Counseling 637905333 Z71 .89 [id number] Patient was seen in dental clinic 02/02/2025 [...] be ordered on 02/02/2025 Renewal of prescription 592938542 Z76.0 Infection of tooth 14708 8007 K04.7 006801 Chronic pancreatitis 235 555360 K86.1 Low back pain 461098365 M54.50 patient requesting stronger medication s for her chronic pain- advised she needs to follow up with painter helper spray and have a dental assessment for mouth pain [id number] Alexx Garcia MD [facility] [address] [facility], [facility] [address] [place] [address] 03/04/2025 12:42:29 03/04/2025 14:40:23 [id number] Alexx Garcia MD [facility] [id number] [place] [address] 03/04/2025 15:28:27 03/04/2025 17:32:22 Screening mammography 41191922 Z12.31 12/19/2023 Screening for malignant neoplasm of colon 043452990 Z12.11 fecal 12/06/2024 Hepatitis C screening 41 5739787 Z11.59 Depression screening 171 949347 Z13.31 Immunization due 2934991 08 Z23 3803160 vaccines up to date Screening for malignant neoplasm of cervix 563040140 Z12.4 Counseling 910233248 Z71 .89 [id number] ER warnings given: patient to call 911 or go to nearest ER if severe chest pain, syncope, increased palpitatio ns, nausea, vomiting, LOC. Patinet verbalizes understand ing and agrees w plan.ER warnings given if abdominal pain, nausea, vomiting, fever, severe diarrhea, blood in stools, dark stools, blood in urine, syncope, chest pain, shortness of breath. Transition of care 29184 91667 105 Z75.8 03/02/2025 . scheduled f/u with GI on 03/16/2025 Body mass index 30+ - obesity 965517709 Z68.30 010221 30.8 Renewal of prescription 649339625 Z76.0 Infection of tooth 41599 8007 K04.7 356136 improved Low back pain 030970403 M54.50 patient requesting stronger medication s for her chronic pain- advised she needs to follow up with painter helper spray and have a dental assessment for mouth pain Chronic no nspecific abdominal pain 925593573 R10.9 scheduled f/u with GI on 03/16/2025 Essential hypertension 36967547 I10 pt will call cardiologi st to scheduled appt today Had extensive conversati on with pain about HTN and medication . Pt verbalized understand ing risk of uncontroll ed HTN. Pt agreed to contact cardiologi st to scheduled appt. Pt will be started on amlodipine and losartan. Nausea and vomiting 1693 1999 R11.2 5803806795 Patient no ncompliance - general 176386669 Z91.199 [id number] ER warnings given: patient to call 911 [...] ID Guarantor Name 03/04/2025 1 [employer] (O) [id number] Kasia Barber [id number] Kasia Barber Notes Date Note Type Note Provider Name and Address Organization Details Recorded Time 5 text/htm l Transition Care ManagementReported by PatientHPIFor timing, patient reportsdate of discharge: (01/30/2025). For facility, patient reportsdischarged to: (home). For current caregivers, patient reportsself. For [id number]-face services performed, patient reportsnot medically indicated. For [...] in the medical record. pt went to [place] on 02/28/2025-02/27/1403/03/2025 abd painpt report symptoms are [...] dental treatmentcould not get imaging performed at [facility] or [facility]- will send STAT order to [facility] 02/02/2025patient has had 3x [...] severe pain.Pt denies chest pain, palpitations, dyspnea. 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 Pt agreed to contact anesthesia tech to scheduled appt. Pt will be started on amlodipine and losartan. Pancreatitis history/chronic pancreatitisHospitalized at [facility] from [facility]-06/04/2024 (request record)Patient went back to [facility] 06/08/2024-06/15/2024 for pancreatitis pain again. Always [...] management 4 days agof/u with GI at [facility] Dr. Gamble 11/2024 Syncope history--has [...] recent divorceno longer following [facility] well and doesn't feel like needs medications at this timereports just having problems sleeping--would like something to help her sleep JESUS PIMENTEL INDOOR LANDSCAPER/GARDENER [address], [place], [address], [place] - Dr. Tomi Quezada 03/04/2025 16:57:19 text/htm l not seen- had to reschedule Maritza Mcpherson, INDOOR LANDSCAPER/GARDENER [address], [place], [address], [place] - Dr. Tomi Quezada 03/04/2025 14:40:22 OBGyn Episode No OBEpisode recorded.
--- OUTSIDE RECORDS SUMMARY | 2025-04-25 13:37 | XMS_ITS | Continuity of Care Document ---
Author Organization [place] - Dr. Tomi Quezada, [facility] Address [address] [facility] Andrey GALNIDO [address] [place] [address] Care Team Providers Care Flyer Repairer Name Role Phone [facility] Pain Management Assessment Encounter Date Assessment Date Assessment LastModified by Organization Details LastModified Time 04/03/2025 04/03/2025 Patient presented for medication refill. Patient tolerating medication well at current dose without adverse effects. Refilled as below. Discussed plan with patient, who expressed understanding . Follow up as noted below. [email or web address] Not available 04/03/2025 17:26:16 Plan of Treatment Reminders Order Date Submit Date Provider Last Modified By Organization Details Last Modified Time Details Appointments None recorded. Lab None recorded. Referral None recorded. Procedures None recorded. Surgeries None recorded. Imaging None recorded. Medication Orders promethazin e 25 mg tablet 2024 025 [facility]/Pharmacy #[id number], [address] [place], [address], 17:27:50 tizanidine 4 mg tablet 2024 025 [facility]/Pharmacy #[id number], [address] [place], [address], 17:27:50 tizanidine 2 mg tablet 2024 025 [facility]/Pharmacy #[id number], [address] [place], [address], 17:27:50 scopolamine 1 mg over 3 days transdermal patch 2024 025 [facility]/Pharmacy #[id number], [address], [place], [address], 17:27:50 Patient TargetsNo targets recorded. Patient Instructions Encounter Date Encounter Id Patient Instructions Last Modified By Organization Details Last Modified Time 04/03/[id number] individual counseling* Not available 04/03/2025 17:27:46 Reason for Referral None Reported. Results Created Date Observation Date Name Description Value Unit Range Abnormal Flag Note LastModifiedBy Organization Detail LastModifiedTime 04/03/2004/03/2025 indiv idual couns eling * patient counseled Not Available [facility] [place] [address] [facility] [address], [place], [address], 04/02/2025 18:05:08 Result Notes None recorded. Problems Name Problem SNOMED Code Status Onset Date Resolution Date Notes Provider Name and Address Organization Details Recorded Time Acute pancreatitis 707565488 Active [place] - Dr. Tomi Quezada 5 16:24:31 Restless legs syndrome 48459751 DAVID Funez - Dr. Tomi Quezada 5 16:24:31 Migraine 46116529 Elizabeth [place] - Dr. Tomi Quezada 5 16:24:31 Simple obesity 549992979 DAVID Funez - Dr. Tomi Quezada 5 16:24:31 Chronic pancreatitis 070248571 Active 2022 JESUS PIMENTEL [employer] [address], [place], [address], [place] - Dr. Tomi Quezada 5 15:56:21 Mixed hyperlipidemia 649312941 Active 2022 DAVID Terrell - Dr. Tomi Quezada 3 16:50:12 Vitamin B12 deficiency (non anemic) 37433263 Active 2022 DAVID Terrell - Dr. Tomi Quezada 3 16:50:13 Conjunctivitis 6506683 Active 2022 Alexx Garcia MD [address], [place], [address], [place] - Dr. Tomi Quezada 3 13:12:09 Chronic nonspecific abdominal pain 123182260 Active 2022 JESUS PIMENTEL NP [address], [place], [address], [place] - Dr. Tomi Quezada 5 16:51:48 Opioid dependence 27260169 Active 2022 Tomi Quezada MD [address], [place], [address], [place] - Dr. Tomi Quezada 21:55:27 Benzodiazepine dependence 122571601 Active 2022 Tomi Quezada MD [address], [place], [address], [place] - Dr. Tomi Quezada 21:55:46 Low back pain 687113071 Active 2023 JESUS PIMENTEL NP [address], [place], [address], [place] - Dr. Tomi Quezada 15:56:21 Tachycardia 2900354 Active 2023 Maritza Mcpherson NP [address], [place], [address], [place] - Dr. Tomi Quezada 4 17:47:04 Seizure disorder 252350586 Active 2023 Maritza Mcpherson NP [address], [place], [address], [place] - Dr. Tomi Quezada 4 11:16:55 Headache 11709752 Active 2023 Maritza Mcpherson NP [address], [place], [address], [place] - Dr. Tomi Quezada 4 11:17:33 Essential hypertension 81754289 Active 2023 JESUS PIMENTEL NP [address], [place], [address], [place] - Dr. Tomi Quezada 5 16:50:08 Tooth infection 238474188 Active 2024 JESUS [employer] [address], [place], [address], [place] - Dr. Tomi Quezada 15:56:21 Nausea and vomiting, unspecified vomiting type 53288858 Active 2024 JESUSDAVIDSON PIMENTEL [employer] [address], [place], [address], [place] - Dr. Tomi Quezada 16:41:02 Motion sickness 76606301 Active 2024 JESUS [employer] [address], [place], [address], [place] - Dr. Tomi Quezada 17:26:23 [...] Tomi Quezada 09/26/2022 14:47:29 Appendectomy completed KEYLA HERNANDZE - Dr. Tomi Quezada 09/26/2022 14:47:36 Cholecystectomy [...] Name and Address Organization Details Recorded Time 40105 iodine medicatio n Not available Not available Not available 04/02/2025 5933 RxNorm Not Available [employer] - External Data Service - prod 19:27:15 99325 prednison e medicatio n Not available Not [...] Not available Not available Not available 08/20/2024 17705 RxNorm [place], [place] - Dr. Tomi Quezada 10:07:15 Medications Name Sig Start Date Stop [...] as needed for 30 days, for pain. 12/04/ 2025 active Not Available Not Available Not [...] Smoking Status Never Smoker DAVID Joseph Dr. Quezada 09/26/2022 14:46:38 Do You Have An Advance Directive? No [email or web address] Information not available 09/26/2022 If You Are , What Was Your Level Of Alcohol Consumption Prior To ? None [email or web address] Information not available 09/26/2022 What Is Your Level Of Caffeine Consumption? Occasional [email or web address] Information not available 09/26/2022 What Type Of Diet Are You Following? REGULAR [email or web address] Information not available 09/26/2022 Do You Have A Medical Power Of Cloth Examiner Machine? No [email or web address] Information not available 09/26/2022 How Many Children Do You Have? 1 [email or web address] Information not available 09/26/2022 Do You Have A Patient Advocate? No [email or web address] Information no t available 09/26/2022 What Is Your Relationship Status? [email or web address] Information not available 09/26/2022 Are You Sexually Active? No [email or web address] Information not available 09/26/2022 Do You Have Difficulty Walking Or Climbing Stairs? No [email or web address] Information not available 09/26/2022 Sex: Female Functional Status Question Answer Note LastModified by Organizat ion Details LastModified Time Do you use any illicit or recreational drugs? No [email or web address] Information not available 09/26/2022 Do you or have you ever used any other forms of tobacco or nicotine? No Information not available 09/26/2022 What is your level of alcohol consumption? None [email or web address] Information not available 09/26/2022 Are you currently employed? No [email or web address] Information not available 09/26/2022 What is your status? Not Information no t available 09/26/2022 Are you able to walk independently without assistance or assistive devices? YESWOREST [email or web address] Information not available 09/26/2022 Are you able to care for yourself independently? Yes [email or web address] Information not available 09/26/2022 What is your exercise level? Occasional [email or web address] Information not available 09/26/2022 Mental Status None recorded. Family History Relationship Description Onset Age of this Age Resolved Age Notes LastModified by Organization Details LastModified Time Paternal Grandfather Malignant neoplastic disease [email or web address] Not available 2022 14:46:24 Medical History Condition Response Coronary Artery Disease N Other N High Blood Pressure N Thyroid Disease N Hyperthyroidism N Emphysema N Ulcers/heartburn/reflux N Steroid Use N Glaucoma N Hypothyroidism N Pacemaker N Anxiety Disorder N Arthritis N Blood Disease N Cancer N Chest Pain or Angina N Hypoglycemia N Stroke N Shortness of breath N High Cholesterol Y Dialysis N Fibromyalgia N Kidney Disease N Heart [...] objection Alexx Garcia MD [address], [place], [address], [place] - Dr. Tomi Quezada 10/03/2023 18:30:12 Influenza, MDCK, quadrivalent, preservative 10/03/19 24 cancelled patient objection Alexx Garcia MD [address], [place], [address], [place] - Dr. Tomi Quezada 10/03/2023 18:30:12 COVID-19, mRNA, LNP-S, PF, 30 mcg/0.3 mL dose 06/21/19 completed [place], [place] - Dr. Tomi Quezada 09/26/2022 14:36:31 COVID-19, mRNA, LNP-S, PF, 30 mcg/0.3 mL dose 07/20/19 21 completed [place], [place] - Dr. Tomi Quezada 09/26/2022 14:36:35 Tdap 05/21/19 19 completed [place], [place] - Dr. Tomi Quezada 09/26/2022 14:49:53 Influenza, MDCK, trivalent, preservative 01/24/20 24 cancelled patient objection Maritza Mcpherson, ARACELI [address], [place], [address], [place] - Dr. Tomi Quezada 01/24/2024 17:42:28 Influenza, MDCK, trivalent, preservative 02/07/20 24 cancelled patient objection Maritza Mcpherson, ARACELI [address], [place], [address], [place] - Dr. Tomi Quezada 02/08/2024 11:15:01 Influenza, MDCK, trivalent, preservative 03/21/20 24 cancelled patient objection CHASITY WEISS [address], [place], [address], [place] - Dr. Tomi Quezada 03/21/2024 17:11:37 RSV, bivalent, protein subunit RSVpreF, diluent reconstituted, 0.5 mL, PF 03/03/20 completed DAVID Coreas - Dr. Tomi Quezada 04/03/2025 14:43:18 influenza nasal, unspecified formulation 06/06/19 completed T[place]ITA [place] - Dr. Tomi Quezada 04/03/2025 14:45:37 Influenza, MDCK, trivalent, PF 08/21/19 cancelled patient objection CHASITY WEISS [address], [place], [address], [place] - Dr. Tomi Quezada 08/20/2024 10:44:31 Influenza, MDCK, trivalent, preservative 11/27/19 25 cancelled patient objection Carlin Patterson NP [address], [place], [address], [place] - Dr. Tomi Quezada 11/26/2024 17:55:55 COVID-19, mRNA, LNP-S, PF, aldo-sucrose, 30 mcg/0.3 mL 11/27/19 25 cancelled patient objection Carlin Patterson NP [address], [place], [address], [place] - Dr. Tomi Quezada 11/26/2024 17:55:55 Past Encounters Encounter ID Performer Location Encounter Start Date Encounter Closed Date Diagnosis/Indication Diagnosis SNOMED-CT Code Diagnosis ICD10 Code Diagnosis IMO Codes Diagnosis Note [id number] Alexx Garcia MD [facility] [address] [facility], [facility] [address] [place] [address] 03/04/2025 12:42:29 03/04/2025 14:40:23 [id number] Alexx Garcia MD [facility] [address] [place] [address] 03/04/2025 15:28:27 03/04/2025 17:32:22 Screening mammography 83404564 Z12.31 12/19/2023 Screening for malignant neoplasm of colon 837435333 Z12.11 fecal 12/06/2024 Hepatitis C screening 41 1177995 Z11.59 Depression screening 171 883511 Z13.31 Immunization due 2155788 08 Z23 8255233 vaccines up to date Screening for malignant neoplasm of cervix 237141992 Z12.4 Counseling 280561187 Z71 .89 [id number] ER warnings given: patient to call 911 or go to nearest ER if severe chest pain, syncope, increased palpitatio ns, nausea, vomiting, LOC. Patinet verbalizes understand ing and agrees w plan.ER warnings given if abdominal pain, nausea, vomiting, fever, severe diarrhea, blood in stools, dark stools, blood in urine, syncope, chest pain, shortness of breath. Transition of care 38322 05631 105 Z75.8 03/02/2025 . scheduled f/u with GI on 03/16/2025 Body mass index 30+ - obesity 453539653 Z68.30 859249 30.8 Renewal of prescription 941462403 Z76.0 Infection of tooth 42718 8007 K04.7 843426 improved Low back pain 713423746 M54.50 patient requesting stronger medication s for her chronic pain- advised she needs to follow up with [facility] and have a dental assessment for mouth pain Chronic no nspecific abdominal pain 059589263 R10.9 scheduled f/u with GI on 03/16/2025 Essential hypertension 70865439 I10 pt will call cardiologi st to scheduled appt today Had extensive conversati on with pain about HTN and medication . Pt verbalized understand ing risk of uncontroll ed HTN. Pt agreed to contact cardiologi st to scheduled appt. Pt will be started on amlodipine and losartan. Nausea and vomiting 1692 1999 R11.2 [id number] Patient no ncompliance - general 830691539 Z91.199 [id number] ER warnings given: patient to call 911 [...] will be started on amlodipine and losartan. [id number] Alexx Garcia MD [facility] [address] [address] 04/03/2025 14:33:08 04/03/2025 17:42:55 Screening mammography 74952854 Z12.31 12/19/2023 order given 03/04/2025 Screening for malignant neoplasm of colon 415616607 Z12.11 fecal 12/06/2024 Hepatitis C screening 41 9072393 Z11.59 11/26/2024 Depression screening 171 035146 Z13.31 Immunization due 5623098 08 Z23 3579079 vaccines up to date Screening for malignant neoplasm of cervix 187971911 Z12.4 Counseling 281679678 Z71 .89 [id number] ER warnings given: patient to call 911 or go to nearest ER if severe chest pain, syncope, increased palpitatio ns, nausea, vomiting, LOC. Patinet verbalizes understand ing and agrees w plan.ER warnings given if abdominal pain, nausea, vomiting, fever, severe diarrhea, blood in stools, dark stools, blood in urine, syncope, chest pain, shortness of breath. Renewal of prescription 477266157 Z76.0 promethazi ne 25mgtizani dine 2 and 4 mgscopolam ine 1mg over 3 days transderma l patches Nausea and vomiting 1693 1999 R11.2 Low back pain 800414217 M54.50 patient requesting stronger medication s for her chronic pain- advised she needs to follow up with [facility] and have a dental assessment for mouth pain Motion sickness 69750824 T75.3XXA Essential hypertension 91421008 I10 pt will call cardiologi st to [...] Member ID Guarantor Name 04/03/2025 1 [employer] ([facility]) [id number] Kasia Sunil [id number] Kasia Barber Notes Date Note Type Note [...] changes since last visit pt went to [facility] on 02/28/2025-02/27/1403/03/2025 abd pain - no changes [...] dental treatmentcould not get imaging performed at [facility] imaging or professional radiology- will [...] severe pain.Pt denies chest pain, palpitations, dyspnea. Rail Walker - has not seen him since May [...] of uncontrolled HTN. Pt agreed to contact [facility] to scheduled appt. Pt will be started on amlodipine and losartan. Pancreatitis history/chronic pancreatitisHospitalized [facility]-06/04/2024 (request record)Patient went back to [facility] 06/08/2024-06/15/2024 for pancreatitis pain again. Always has [...] management 4 days [place]of/[place] [facility] [place]/2024 Syncope history--has not recurredsuggested [...] recent divorceno longer following Dr [facility], [facility] well and doesn't feel like needs medications at this timereports just having problems sleeping--would like something to help her sleep [employer]US [employer] [address], [place], [address], [place] - Dr. Tomi Quezada 04/03/2025 17:28:12 OBGyn Episode No OBEpisode recorded.
--- OUTSIDE RECORDS SUMMARY | 2025-04-25 13:37 | XMS_ITS | Continuity of Care Document ---
Author Organization [place] - Dr. Tomi Quezada, [facility] Address [address], [address] [place] [address] Care Team Providers Care Voice Coach Name Role Phone [facility] Pain Management Assessment No assessment recorded. Plan of Treatment Reminders Order Date Submit Date Provider Last Modified By Organization Details Last Modified Time Details Appointments None recorded. Lab None recorded. Referral None recorded. Procedures None recorded. Surgeries None recorded. Imaging MAMMO, screening, bilateral 2024 025 [facility], [address], [place], [address], 5 04:02:44 CT, maxillofac ial, w/o contrast 2024 025 [facility], [address], [address], [place], [address], 5 04:07:51 Medication Orders None recorded. Patient TargetsNo targets recorded. Patient InstructionsNo instructions recorded. Reason for Referral None Reported. Problems Name Problem SNOMED Code Status Onset Date Resolution Date Notes Provider Name and Address Organization Details Recorded Time Acute pancreatitis 445022517 Active DAVID Solano Dr. 16:24:31 Restless legs syndrome 00308915 DAVID Funez Dr. 16:24:31 Migraine 73721962 Active DAVID Solano Dr. 16:24:31 Simple obesity 315982055 DAVID Funez Dr. 5 16:24:31 Chronic pancreatitis 971860023 Active 2022 JESUS PIMENTEL NP [address], [place], [address], [place] - Dr. Tomi Quezada 5 15:56:21 Mixed hyperlipidemia 895002647 Active 2022 J[place]OD [place] - Dr. Tomi Quezada 3 16:50:12 Vitamin B12 deficiency (non anemic) 10419162 Active 2022 J[place]OD [place], [place] - Dr. Tomi Quezada 16:50:13 Conjunctivitis 6255805 Active 2022 Alexx Garcia MD [address], [place], [address], [place] - Dr. Tomi Quezada 13:12:09 Chronic nonspecific abdominal pain 896976239 Active 2022 JESUS PIMENTEL NP [address], [place], [address], [place] - Dr. Tomi Quezada 5 16:51:48 Opioid dependence 13032031 Active 2022 Tomi Quezada MD [address], [place], [address], [place] - Dr. Tmoi Quezada 21:55:27 Benzodiazepine dependence 029691033 Active 2022 Tomi Quezada MD [address], [place], [address], [place] - Dr. Tomi Quezada 3 21:55:46 Low back pain 181185617 Active 2023 JESUS PIMENTEL NP [address], [place], [address], [place] - Dr. Tomi Quezada 5 15:56:21 Tachycardia 0161420 Active 2023 Maritza Mcpherson NP [address], [place], [address], [place] - Dr. Tomi Quezada 4 17:47:04 Seizure disorder 159977938 Active 2023 Maritza Mcpherson NP [address], [place], [address], [place] - Dr. Tomi Quezada 11:16:55 Headache 02588099 Active 2023 Maritza Mcpherson NP [address], [place], [address], [place] - Dr. Tomi Quezada 11:17:33 Essential hypertension 53417867 Active 2023 JESUS PIMENTEL NP [address], [place], [address], [place] - Dr. Tomi Quezada 16:50:08 Tooth infection 507163793 Active 2024 JESUS PIMENTEL NP [address], [place], [address], [place] - Dr. Tomi Quezada 15:56:21 Nausea and vomiting, unspecified vomiting type 97347045 Active 2024 JESUS PIMENTEL NP [address], [place], [address], [place] - Dr. Tomi Quezada 16:41:02 Motion sickness 53010285 Active 2024 JESUS PIMENTEL NP [address], [place], [address], [place] - Dr. Tomi Quezada 17:26:23 [...] Name and Address Organization Details Recorded Time 18396 iodine medicatio n Not available Not available Not available 04/02/2025 5933 RxNorm Not Available vesna - External Data Service - prod 11/13/202 5 19:27:15 27218 prednison e medicatio n Not available Not [...] Not available Not available Not available 08/20/2024 [address] 5 10:07:15 Medications [...] Updated DateTime 01/29/2025 167.64 cm 30.7 kg/m2 61000.55 g RUBIA Quezada 01/29/2025 10:57:05 Social History Question Answer Notes LastModified by Organizat ion Details LastModified Time Tobacco Smoking Status Never Smoker DAVID Joseph Dr. 09/26/2022 14:46:38 Do You Have An Advance Directive? No [email or web address] Information not available 09/26/2022 If You Are , What Was Your Level Of Alcohol Consumption Prior To ? None [email or web address] Information not available 09/26/2022 What Is Your Level Of Caffeine Consumption? Occasional [email or web address] Information not available 09/26/2022 What Type Of Diet Are You Following? REGULAR Information not available 09/26/2022 Do You Have A Medical Power Of Welding Inspector? No [email or web address] Information not available 09/26/2022 How Many Children Do You Have? 1 Information not available 09/26/2022 Do You Have A Patient Advocate? No Information no t available 09/26/2022 What Is Your Relationship Status? [email or web address] Information not available 09/26/2022 Are You Sexually Active? No Information not available 09/26/2022 Do You Have Difficulty Walking Or Climbing Stairs? No [email or web address] Information not available 09/26/2022 Sex: Female Functional Status Question Answer Note LastModified by Organizat ion Details LastModified Time Do you use any illicit or recreational drugs? No [email or web address] Information not available 09/26/2022 Do you or have you ever used any other forms of tobacco or nicotine? No [email or web address] Information not available 09/26/2022 What is your level of alcohol consumption? None [email or web address] Information not available 09/26/2022 Are you currently employed? No [email or web address] Information not available 09/26/2022 What is your status? Not [email or web address] Information no t available 09/26/2022 Are you able to walk independently without assistance or assistive devices? YESWOREST [email or web address] Information not available 09/26/2022 Are you able to care for yourself independently? Yes [email or web address] Information not available 09/26/2022 What is your exercise level? Occasional [email or web address] Information not available 09/26/2022 Mental Status None [...] objection Alexx Garcia MD [address], [place], [address], [place] - Dr. Tomi Quezada 10/03/2023 18:30:12 Influenza, MDCK, quadrivalent, preservative 10/03/19 24 cancelled patient objection Alexx Garcia MD [address], [place], [address], [place] - Dr. Tomi Quezada 10/03/2023 18:30:12 COVID-19, mRNA, LNP-S, PF, 30 mcg/0.3 mL dose 06/21/19 21 completed KEYLA TAPIA [place], [place] - Dr. Tomi Quezada 09/26/2022 14:36:31 COVID-19, mRNA, LNP-S, PF, 30 mcg/0.3 mL dose 07/20/19 21 completed KEYLA TAPIA [place], [place] - Dr. Tomi Quezada 09/26/2022 14:36:35 Tdap 05/21/19 19 completed KEYLA C[place], [place] - Dr. Tomi Quezada 09/26/2022 14:49:53 Influenza, MDCK, trivalent, preservative 01/24/20 24 cancelled patient objection Maritza Mcpherson, [facility] [address], [place], [address], [place] - Dr. Tomi Quezada 01/24/2024 17:42:28 Influenza, MDCK, trivalent, preservative 02/07/20 24 cancelled patient objection Maritza Mcpherson, [facility] [address], [place], [address], [place] - Dr. Tomi Quezada 02/08/2024 11:15:01 Influenza, MDCK, trivalent, preservative 03/21/20 24 cancelled patient objection CHASITY WEISS [address], [place], [address], [place] - Dr. Tomi Quezada 03/21/2024 17:11:37 RSV, bivalent, protein subunit RSVpreF, diluent reconstituted, 0.5 mL, PF 03/03/20 completed DAVID Coreas - Dr. Tomi Quezada 04/03/2025 14:43:18 influenza nasal, unspecified formulation 06/06/19 completed DAVID Coreas - Dr. Tomi Quezada 04/03/2025 14:45:37 Influenza, MDCK, trivalent, PF 08/21/19 cancelled patient objection CHASITY WEISS [address], [place], [address], [facility] - Dr. Tomi Quezada 08/20/2024 10:44:31 Influenza, MDCK, trivalent, preservative 11/27/19 cancelled patient objection Carlin Patterson NP [address], [place], [address], [facility] - Dr. Tomi Quezada 11/26/2024 17:55:55 COVID-19, mRNA, LNP-S, PF, aldo-sucrose, 30 mcg/0.3 mL 11/27/19 cancelled patient objection Carlin Patterson NP [address], [place], [address], [facility] - Dr. Tomi Quezada 11/26/2024 17:55:55 Past Encounters Encounter ID Performer Location Encounter Start Date Encounter Closed Date Diagnosis/Indication Diagnosis SNOMED-CT Code Diagnosis ICD10 Code Diagnosis IMO Codes Diagnosis Note [id number] Tomi Quezada MD [facility] [address], [facility] [address] [place] [address] 01/27/2025 14:22:34 01/27/2025 15:43:11 Screening for malignant neoplasm of colon 865245071 Z12.11 12/06/2024 FECAL Depression screening 171 672216 Z13.31 negative Immunization due 3487448 08 Z23 5945938 tdap, flu & covid UP TO DATE. Screening for malignant neoplasm of cervix 088193280 Z12.4 05/21/2015 Body mass index 30+ - obesity 066744538 Z68.30 760155 30.7 Bacterial sinusitis 7034 27932 J32.9 B96.89 [id number] will treat as belowconti nue with flonase [id number] Alexx Garcia MD [facility] [address], [facility] [address] [place] [address] 01/29/2025 10:53:44 01/29/2025 11:14:16 Screening mammography 12483797 Z12.31 12/19/2023 Depression screening 171 254356 Z13.31 negative Body mass index 30+ - obesity 894865008 Z68.30 371030 30.7 Acute maxi llary sinusitis 82208142 J01.00 [id number] refer to stat CT. If unable to [...] ID Guarantor Name 01/29/2025 1 [employer] (O) [id number] Kasia Sunil [id number] Kasia Barber Notes Date Note Type Note [...] chronic pancreatitisfollowing pain managementf/u [facility] Gamble 11/2024denies chest pain, sob, fevers, [...] appointment Chronic back pain follows pain managementDr Sharri boydzanadine 6m, takes between 1 - to -4 times dailydenies illicit drug use vitamin dtaking supplementrecheck lab mixed dldnot taking medication. MDD/GADdiagnosed in her 20striggers: recent divorceno longer following Dr [facility]'t feel like needs medications at this timereports just having problems sleeping--would like something to help her sleep CHASITY WEISS [address], [place], [address], [place] - Dr. Tomi Quezada 01/29/2025 11:14:12 OBGyn Episode No OBEpisode recorded.
--- OUTSIDE RECORDS SUMMARY | 2025-04-25 13:37 | XMS_ITS | Continuity of Care Document ---
Author Organization [place] - Dr. Tomi Quezada, [facility] Address [address] [address] Care Team Providers Care Map Mounter Name Role Phone [facility] Pain Management Assessment No assessment recorded. Plan of Treatment Reminders Order Date Submit Date Provider Last Modified By Organization Details Last Modified Time Details Appointments None recorded. Lab CBC w/ auto diff 2024 025 [facility], [address], [place], [address], 04:17:24 Referral None recorded. Procedures None recorded. Surgeries None recorded. Imaging CT, maxillofac ial, w/ contrast - stat 2024 025 [facility], [address] [place], [address], 5 04:17:25 Medication Orders tizanidine 4 mg tablet 2024 025 [facility] #[id number], [address] [place], [address], 5 15:50:11 tizanidine 2 mg tablet 2024 025 [facility] #[id number], [address] [place], [address], 5 15:50:10 promethazi ne 25 mg tablet 2024 025 [facility] #[id number], [address] , [place], [address], 15:50:10 Patient TargetsNo targets recorded. Patient InstructionsNo instructions recorded. Reason for Referral None Reported. Results Created Date Observation Date Name Description Value Unit Range Abnormal Flag Note LastModifiedBy Organization Detail LastModifiedTime Result Notes None recorded. Problems Name Problem SNOMED Code Status Onset Date Resolution Date Notes Provider Name and Address Organization Details Recorded Time Acute pancreatitis 417076434 Active [place], [place] - Dr. Tomi Quezada 5 16:24:31 Restless legs syndrome 12038244 Active DAVID Solano - Dr. Tomi Quezada 16:24:31 Migraine 53282577 Active DAVID Solano - Dr. Tomi Quezada 16:24:31 Simple obesity 321380412 Active DAVID Solano - Dr. Tomi Quezada 5 16:24:31 Chronic pancreatitis 001580202 Active 2022 JESUS PIMENTEL NP [address], [place], [address], [place] - Dr. Tomi Quezada 5 15:56:21 Mixed hyperlipidemia 181124980 Active 2022 DAVID Terrell - Dr. Tomi Quezada 3 16:50:12 Vitamin B12 deficiency (non anemic) 27349808 Active 2022 DAVID Terrell - Dr. Tomi Quezada 3 16:50:13 Conjunctivitis 9925006 Active 2022 Alexx Garcia MD [address], [place], [address], [place] - Dr. Tomi Quezada 3 13:12:09 Chronic nonspecific abdominal pain 642799537 Active 2022 JESUS PIMENTEL NP [address], [place], [address], [place] - Dr. Tomi Quezada 5 16:51:48 Opioid dependence 95518571 Active 2022 Tomi Quezada MD [address], [place], [address], [place] - Dr. Tomi Quezada 3 21:55:27 Benzodiazepine dependence 610497035 Active 2022 Tomi Quezada MD [address], [place], [address], [place] - Dr. Tomi Quezada 3 21:55:46 Low back pain 351151289 Active 2023 JESUS PIMENTEL LOC[employer]OTIVE SUPERVIS[employer] [address], [place], [address], [place] - Dr. Tomi Quezada 15:56:21 Tachycardia 3646127 Active 2023 Maritza Mcpherson NP [address], [place], [address], [place] - Dr. Tomi Quezada 17:47:04 Seizure disorder 031038618 Active 2023 Maritza Mcpherson NP [address], [place], [address], [place] - Dr. Tomi Quezada 11:16:55 Headache 71461590 Active 2023 Maritza Mcpherson NP [address], [place], [address], [place] - Dr. Tomi Quezada 4 11:17:33 Essential hypertension 66022266 Active 2023 JESUS PIMENTEL [employer] SUPER[employer] [address], [place], [address], [place] - Dr. Tomi Quezada 16:50:08 Tooth infection 299400136 Active 2024 JESUS PIMENTEL [employer]OM[employer]IVE SUPER[employer] [address], [place], [address], [place] - Dr. Tomi Quezada 15:56:21 Nausea and vomiting, unspecified vomiting type 90063697 Active 2024 JESUS PIMENTEL [employer] SUPER[employer] [address], [place], [address], [place] - Dr. Tomi Quezada 5 16:41:02 Motion sickness 06084675 Active 2024 JESUS PIMENTEL NP [address], [place], [address], [place] - Dr. Tomi Quezada 17:26:23 Problem Notes None recorded. Procedures Surgical History Date Name Laterality Status Provider Name and Address Organization Details Recorded Time 025 Hospital follow up completed TALITA Quezada 11/26/2024 16:30:48 025 Date of Last Colonoscopy completed RUBIA Quezada 01/27/2025 14:30:32 025 Hospital follow up completed Lor Quezada 09/15/2024 14:59:32 025 Hospital follow up completed Lor Quezdaa 08/28/2024 17:11:04 025 Hospital follow up completed [...] Name and Address Organization Details Recorded Time 91544 iodine medicatio n Not available Not available Not available 04/02/2025 5933 RxNorm Not Available [employer] - prod 19:27:15 94051 prednison e medicatio n Not available Not available Not available 04/02/2025 8640 RxNorm Not Available [employer] - prod 19:27:15 6339 shellfish derived food,medi cation Not available Not available Not available 09/26/[address] 3 14:35:17 8619 loperamid e medicatio n Not available Not available Not available 06/25/2024 6468 RxNorm Other react ions and sever ities : 'Weal (diso rder) '. DAVID Martin Dr. 5 10:07:15 8899 ketorolac medicatio n Not available Not available Not available 08/20/2024 [address] 5 10:07:15 Medications [...] Updated DateTime 02/02/2025 165.1 cm 30.8 kg/m2 35006.59 g 235/160 mm[Hg] PARTH Quezada 02/02/2025 13:39:15 Social History Question Answer Notes LastModified by Organizat ion Details LastModified Time Tobacco Smoking Status Never Smoker DAVID Joseph Dr. 09/26/2022 14:46:38 Do You Have An Advance Directive? No [email or web address] Information not available 09/26/2022 If You Are , What Was Your Level Of Alcohol Consumption Prior To ? None [email or web address] Information not available 09/26/2022 What Is Your Level Of Caffeine Consumption? Occasional [email or web address] Information not available 09/26/2022 What Type Of Diet Are You Following? REGULAR [email or web address] Information not available 09/26/2022 Do You Have A Medical Power Of Chicken Cutter? No [email or web address] Information not available 09/26/2022 How Many Children Do You Have? 1 [email or web address] Information not available 09/26/2022 Do You Have A Patient Advocate? No [email or web address] Information no t available 09/26/2022 What Is Your Relationship Status? Information not available 09/26/2022 Are You Sexually Active? No [email or web address] Information not available 09/26/2022 Do You Have Difficulty Walking Or Climbing Stairs? No [email or web address] Information not available 09/26/2022 Sex: Female Functional Status Question Answer Note LastModified by Organizat ion Details LastModified Time Do you use any illicit or recreational drugs? No [email or web address] Information not available 09/26/2022 Do you or have you ever used any other forms of tobacco or nicotine? No [email or web address] Information not available 09/26/2022 What is your level of alcohol consumption? None [email or web address] Information not available 09/26/2022 Are you currently employed? No [email or web address] Information not available 09/26/2022 What is your status? Not [email or web address] Information no t available 09/26/2022 Are you able to walk independently without assistance or assistive devices? [email or web address] Information not available 09/26/2022 Are you able to care for yourself independently? Yes [email or web address] Information not available 09/26/2022 What is your exercise level? Occasional [email or web address] Information not available 09/26/2022 Mental Status None recorded. Family History Relationship Description Onset Age of this Age Resolved Age Notes LastModified by Organization Details LastModified Time Paternal Grandfather Malignant neoplastic disease [email or web address] Not available 2022 14:46:24 Medical History Condition [...] 24 cancelled patient objection Alexx Garcia MD [address] [address], [place], [address], [place] - Dr. Tomi Quezada 10/03/2023 18:30:12 Influenza, MDCK, quadrivalent, preservative 10/03/19 24 cancelled patient objection Alexx Garcia MD [address] [address], [place], [address], [place] - Dr. Tomi Quezada 10/03/2023 18:30:12 COVID-19, mRNA, LNP-S, PF, 30 mcg/0.3 mL dose 06/21/19 21 completed DAVID Joseph - Dr. Tomi Quezada 09/26/2022 14:36:31 COVID-19, mRNA, LNP-S, PF, 30 mcg/0.3 mL dose 07/20/19 21 completed KEYLA TAPIADAVID [place] - Dr. Tomi Quezada 09/26/2022 14:36:35 Tdap 05/21/19 19 completed DAVID Joseph - Dr. Tomi Quezada 09/26/2022 14:49:53 Influenza, MDCK, trivalent, preservative 01/24/20 24 cancelled patient objection Maritza Mcpherson, LOC[employer]OTIVE SUPER[employer] [address], [place], [address], [place] - Dr. Tomi Quezada 01/24/2024 17:42:28 Influenza, MDCK, trivalent, preservative 02/07/20 24 cancelled patient objection Maritza Vida, LOCOMOTIVE SUPER[employer] [address], [place], [address], [place] - Dr. Tomi Quezada 02/08/2024 11:15:01 Influenza, MDCK, trivalent, preservative 03/21/20 24 cancelled patient objection CHASITY WEISS [address], [place], [address], [place] - Dr. Tomi Quezada 03/21/2024 17:11:37 RSV, bivalent, protein subunit RSVpreF, diluent reconstituted, 0.5 mL, PF 03/03/20 completed DAVID Coreas - Dr. Tomi Quezada 04/03/2025 14:43:18 influenza nasal, unspecified formulation 06/06/19 completed DAVID Coreas - Dr. Tomi Quezada 04/03/2025 14:45:37 Influenza, MDCK, trivalent, PF 08/21/19 cancelled patient objection CHASITY WEISS [address], [place], [address], [place] - Dr. Tomi Quezada 08/20/2024 10:44:31 Influenza, MDCK, trivalent, preservative 11/27/19 cancelled patient objection Carlin Patterson NP [address], [place], [address], [place] - Dr. Tomi Quezada 11/26/2024 17:55:55 COVID-19, mRNA, LNP-S, PF, aldo-sucrose, 30 mcg/0.3 mL 11/27/19 25 cancelled patient objection Carlin Patterson LOCOMOTIVE SUPERVIS[employer] [address], [place], [address], [facility] Dr. Tomi Quezada 11/26/2024 17:55:55 Past Encounters Encounter ID Performer Location Encounter Start Date Encounter Closed Date Diagnosis/Indication Diagnosis SNOMED-CT Code Diagnosis ICD10 Code Diagnosis IMO Codes Diagnosis Note [id number] Tomi Quezada MD [facility] [address], [facility] [place] [address] 01/27/2025 14:22:34 01/27/2025 15:43:11 Screening for malignant neoplasm of colon 097987170 Z12.11 12/06/2024 FECAL Depression screening 171 102543 Z13.31 negative Immunization due 6951397 08 Z23 4052033 tdap, flu & covid UP TO DATE. Screening for malignant neoplasm of cervix 794481951 Z12.4 05/21/2015 Body mass index 30+ - obesity 815706173 Z68.30 254171 30.7 Bacterial sinusitis 7034 51148 J32.9 B96.89 5717577 will treat as belowconti nue with flonase [id number] Alexx Garcia MD [facility] [address], [address] [address] 01/29/2025 10:53:44 01/29/2025 11:14:16 Screening mammography 86014424 Z12.31 12/19/2023 Depression screening 171 622201 Z13.31 negative Body mass index 30+ - obesity 937070052 Z68.30 551425 30.7 Acute maxi llary sinusitis 72427881 J01.00 44480352 refer to stat CT. If unable to have CT done today recommend patient go to ER or if new or worsening symptoms. continue augmentin [id number] Alexx Garcia MD [facility] [address], [address] [address] 01/30/2025 14:38:34 01/30/2025 15:05:49 Screening mammography 95334411 Z12.31 12/19/2023 Depression screening 171 197331 Z13.31 negative Infection of tooth 95189 8007 K04.7 982338 continue augmentin, refer to [facility]. send CT to other radiology clinictake tylenol/ib uprofen as directed for pain. ER warnings reiterated --voiced understand ing [id number] Alexx Garcia MD [facility] [address] [place] [address] 02/02/2025 13:34:49 02/02/2025 15:52:38 Screening mammography 36031649 Z12.31 has order from 01/30/2025 Screening for malignant neoplasm of colon 887655465 Z12.11 FIT 11/2024 - colonoscop y has order from 11/2024 Depression screening 171 228743 Z13.31 Immunization due 4572892 08 Z23 8687442 Counseling 200123289 Z71 .89 [id number] Patient was seen in dental clinic 02/02/2025 [...] be ordered on 02/02/2025 Renewal of prescription 726999177 Z76.0 Infection of tooth 92658 8007 K04.7 721909 Chronic pancreatitis 235 175570 K86.1 Low back pain 728235690 M54.50 patient requesting stronger medication s for her chronic pain- advised she needs to follow up with paint pourer and have a dental assessment for mouth pain Health Concerns Section Related Observation LastModified by Organization Detai ls LastModified Time None Recorded Concern Status LastModified by Organization Details LastModified Time None Recorded Payers Encounter Date Sequence Insurance Name Policy Number Policy Lamar Covered Member ID Lamar Member ID Guarantor Name 02/02/2025 1 [employer] (HMO) [id number] Kasia Barber [id number] Kasia Barber Notes Date Note Type Note Provider Name and Address Organization Details Recorded Time 5 text/htm l Transition Care ManagementReported by PatientHPIFor timing, patient reportsdate of discharge: (01/30/2025). For facility, patient reportsdischarged to: (home). For current caregivers, patient reportsself. For [id number]-face services performed, patient reportsnot medically indicated. For functional status, patient reportsno difficulty following discharge instructions,taking medications as prescribed, andfollowing recommended activity level. For follow up, patient reportsprima care provider, date: (02/02/2025). VIRTUAL VISIT: This [...] dental treatmentcould not get imaging performed at [facility] or [facility]- will send STAT order to [facility] 02/02/2025patient has had 3x [...] half tab daily Pancreatitis history/chronic pancreatitisHospitalized at [facility] 05/24[facility]-06/04/2024 (request record)Patient went back to [facility] 06/08/2024-06/15/2024 for pancreatitis pain again. Always [...] management 4 days agof/u [facility] Gamble 11/2024 Syncope history--has not recurredsuggested [...] gi appointment Chronic back pain follows pain management Rafaeianon tizanadine 6m, takes between 1 - to -4 times dailydenies illicit drug use vitamin dtaking supplementrecheck lab mixed dldnot taking medication. MDD/GADdiagnosed in her 20striggers: recent [facility]ceno [facility] like [facility] medications at this timereports just having problems sleeping--would like something to help her sleep JULIA MCDERMOTT [address], [place], [address], [place] - Dr. Tomi Quezada 02/02/2025 15:50:06 OBGyn Episode No OBEpisode recorded.
--- NOTE | 2025-04-25 13:46 | CT_ITS ---
PROCEDURE INFORMATION: Exam: CT Abdomen And Pelvis Without Contrast Exam date and time: 04/25/2025 1:54 PM Age: 44 years old Clinical indication: Other: Epigastric/luq pain, HX of pancreatitis TECHNIQUE: Imaging protocol: Computed tomography of the abdomen and pelvis without contrast. Radiation optimization: All CT scans at this facility use at least one of these dose optimization techniques: automated exposure control; mA and/or kV adjustment per patient size (includes targeted exams where dose is matched to clinical indication); or iterative reconstruction. COMPARISON: CT - ABDPELWO CT abdomen pelvis wo con 11/21/2018 2:43 AM FINDINGS: Liver: Normal. No mass. Gallbladder and biliary ducts: Cholecystectomy. Pancreas: There is a very small amount of edema is seen adjacent to the tail and body of the pancreas. Spleen: Normal. No splenomegaly. Adrenal glands: Normal. No mass. Kidneys and ureters: Normal. No hydronephrosis. Stomach and bowel: Gastric bypass surgery. Appendix: No evidence of appendicitis. Intraperitoneal space: Unremarkable. No free air. No significant fluid collection. Vasculature: Unremarkable. No abdominal aortic aneurysm. Lymph nodes: There is edema and mildly prominent lymph nodes seen in the mesentery this has progressed slightly since the prior examination. Urinary bladder: Unremarkable as visualized. Reproductive: Hysterectomy. Bones/joints: Unremarkable. No acute fracture. Soft tissues: Unremarkable. IMPRESSION: 1. Small amount of edema adjacent to the body and tail of the pancreas, indeterminate, correlate with pancreatic enzymes for acute pancreatitis. No fluid collections are noted. 2. Cholecystectomy. 3. Gastric bypass surgery. 4. 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
--- NOTE | 2025-04-25 13:48 | ED_ITS ---
<Statement entered by Susan Campbell MD - 04/30/25 17:05> I was consulted by the MERCEDES, and we discussed the complexity of the problems being addressed. I approved the treatment and management plan for this patient's care in the emergency department, thus performing a substantive portion of the medical decision making. Susan Campbell MD, OVIDIO, FACEP Discharge Plan Disposition Patient Disposition: Xfer Other Condition: Good Prescriptions Prescriptions: No Action epinephrine [EpiPen 2-Luis] 0.3 mg/0.3 mL auto-injector 0.3 mg IM Q5-15M PRN (Reason: anaphylaxis) Qty: 2 0RF Rx Instructions: do not exceed 3 doses per episode tizanidine 4 mg tablet 4 mg PO Q6H PRN (Reason: Pain (Scale Score 4-6)) scopolamine base 1 mg over 3 days patch 3 day 1 patch transdermal 2XW acetaminophen-codeine 300-30 mg tablet 1 tab PO QID amlodipine 5 mg tablet 5 mg PO BID losartan 100 mg tablet 100 mg PO DAILY pregabalin 200 mg capsule 200 mg PO BID sucralfate 1 gram tablet 1 g PO ACHS 30 Days Qty: 120 0RF hydrocodone-acetaminophen 5-325 mg tablet 1 tab PO Q4H PRN (Reason: pain) 3 Days Qty: 15 0RF Relistor 150 mg tablet 450 mg PO DAILY Qty: 90 12RF Rx Instructions: Please take 3 tablets by mouth daily hydrocodone-acetaminophen 5-325 mg Tablet 1 tab PO Q6HP PRN (Reason: Mild To Moderate Pain (1-6)) Qty: 12 0RF metoclopramide HCl 10 mg Tablet 10 mg PO AC 14 Days Qty: 42 0RF Creon 36,000-114,000- 180,000 unit Capsule,Delayed Release(Dr/Ec) 2 cap PO AC 30 Days Qty: 180 0RF cyclobenzaprine 10 mg tablet 10 mg PO HS PRN (Reason: muscle spasm) 30 Days Qty: 0 0RF pantoprazole 40 mg tablet,delayed release (DR/EC) 40 mg PO DAILY Qty: 30 0RF promethazine 25 mg tablet 25 mg PO Q6H PRN (Reason: nausea and vomiting) Qty: 12 0RF Referrals Follow up/Referrals: Provider,Referral, [Primary Care Provider, Medical] - See instructions Clinical Impressions Clinical Impression: Chronic abdominal pain, History of gastric bypass, Nausea and vomiting Chronic pancreatitis Qualifiers: Pancreatitis type: unspecified pancreatitis type Qualified Code(s): K86.1 - Other chronic pancreatitis Stand Alone Forms Stand Alone Forms: Transfer Record - ED Instructions Patient Instructions: DI for Acute Abdominal Pain Print Language Print Language: Algerian Discharge ED Provider: Susan Campbell General Adult HPI <ABHISHEK Ellington - Last Filed: 04/25/25 22:08> General Chief complaint: Abdominal Pain Stated complaint: vomiting abd pain/left side Time Seen by Provider: 04/25/25 13:31 Mode of Arrival: Ambulatory Source of Information: Patient and Medical Record Limitations: No Limitations History of Present Illness HPI narrative: 44-year-old female presents the emergency department with midepigastric abdominal pain/left upper quadrant abdominal pain, persistent nausea vomiting poor p.o. intake that has been consistent since yesterday Patient was discharged on 04/23/2025, for similar symptomatology, had episode of hematemesis, had upper GI scope, history of gastric sleeve 6 years ago, performed in [facility], opioid and constipation, concern for gastroparesis versus chronic abdominal pain. Patient states initially she got better upon discharge, but symptoms persisted all day yesterday, and today which prompted emergency department visit. Patient denies any fever chills chest pain shortness of breath, does state that the hematemesis is improved but states she has specks of blood , denies any constipation diarrhea, denies any hematuria melena hematochezia, hemoptysis, patient denies any tobacco alcohol or drug use, data deficient history of alcohol use 8 years ago , other past medical history is consistent with, lumbar generative disc falls of pain management, chronic abdominal pain versus chronic pancreatitis, hypertension. Initial triage vitals unremarkable. Please note that above description of symptoms, in this electronic medical record under categorization of recalled from ER triage doctor by RN are reflective of an initial nursing assessment, however, is not reflective of my full history and physical exam that was personally taken and clarified. Consequentially, this preceding description of symptoms, which may include the patient's categorized chief complaint in the EMR, do not reflect my personal clinical impression, and the ultimate description of history of present illness and patient stated complaints should be deferred to this section of the note. Unless stated otherwise or congruent with this section of the note, additional signs, symptoms, or incongruence should be interpreted as inaccurate with my clinical impression. Onset (ago): hour(s) Related Data Home Medications ?Medication ?Instructions ?Recorded ?Confirmed scopolamine base 1 mg over 3 days 1 patch transdermal 2XW 04/04/25 04/22/25 transdermal patch tizanidine 4 mg tablet 4 mg PO Q6H PRN Pain (Scale Score 04/04/25 04/22/25 4-6) acetaminophen 300 mg-codeine 30 mg 1 tab PO QID 04/22/25 tablet amlodipine 5 mg tablet 5 mg PO BID 04/15/25 5 Held on 04/23/25. Instructions: Resume on 04/30/25. losartan 100 mg tablet 100 mg PO DAILY 04/15/2508/12 Held on 04/23/25. Instructions: Your blood pressures have been stable here without this medication. Please restart this medication if your systolic blood pressure is consistently above 150, otherwise follow-up with your PCP for further discussion about restarting medication. pregabalin 200 mg capsule 200 mg PO BID 04/15/2504/22 Previous Rx's ?Medication ?Instructions ?Recorded epinephrine 0.3 mg/0.3 mL 0.3 mg (0.3 mL) IM Q5-15M WA N 05/16/21 injection, auto-injector (EpiPen anaphylaxis #2 ea 2-Luis) pantoprazole 40 mg tablet,delayed 40 mg PO DAILY #30 t abs 05/15/24 release promethazine 25 mg tablet 25 mg PO Q6H PRN nausea and 05/15/24 vomiting #12 tabs hydrocodone 5 mg-acetaminophen 325 1 tab PO Q4H PRN pa in 3 days #15 04/16/25 mg tablet tabs sucralfate 1 gram tablet 1 g PO ACHS 30 days #120 tab s 04/16/25 Relistor 150 mg tablet 450 mg (3 x 150 mg) PO DAILY #90 04/22/25 (methylnaltrexone) tabs cyclobenzaprine 10 mg tablet 10 mg PO HS PRN muscle sp asm 30 04/23/25 days #0 tabs hydrocodone 5 mg-acetaminophen 325 1 tab PO Q6HP PRN M ild To Moderate 04/23/25 mg tablet Pain (1-6) #12 tabs [id number] 2 cap PO AC 30 days #180 cap s 04/23/25 (pork)36,000-114,000-180k unit capsule,del rel (Creon) metoclopramide HCl 10 mg tablet 10 mg PO AC 14 days #4 2 tabs 04/23/25 Allergies Allergy/AdvReac Type Severity Reaction Status Date / Time Iodinated Contrast Media Allergy Severe Anaphylaxis Verified 04/04/25 11:27 (IODINATED CONTRAST MEDIA - IV DYE) codeine (CODEINE) Allergy Unknown SWELLING Verified 04/04/25 11:27 iodine (IODINE) Allergy Unknown Anaphylaxis Verified 04/04/25 11:27 loperamide (LOPERAMIDE) Allergy Unknown Rash Verified 04/04/25 11:27 shellfish derived (From Allergy Unknown SWELLING Verified 04/04/25 11:27 SHELLFISH (FOOD/DRUG)) ketorolac (From Toradol) Allergy Difficulty Verified 04/15/25 14:01 Breathing [facility] <ABHISHEK Ellington - Last Filed: 04/25/25 22:08> [facility] Disclaimer: The information contained in this section may have been updated after the patient was seen, as this information can be updated by other users. Medical History Insect bite Social History Smoking Status: Never smoker alcohol intake: never substance use type: denies use current occupational status: other Travel in the last 8 weeks?: Inside the [place] household members: family housing: house Have you lived/traveled outside [place] in past 30 days?: No Contact w/someone who lives/traveled outside US past 30 days?: No Exposure to someone with infectious disease in past 14 days?: No Do you have a fever (greater than 100.4 F or 38 C)?: No Have you tested positive for COVID-19?: No Exposed to someone with COVID-19 in past 14 days?: No Do you have a sore throat?: No Do you have a cough?: No Do you have any weakness?: No Do you have any diarrhea?: No Are you experiencing any unusual bleeding?: No Do you have any muscle aches/pain?: No Do you have any abdominal pain?: No Are you experiencing loss of taste or smell?: No Other Medical History Have you received the Flu Vaccine for this season: No Have you received the Pneumonia Vaccine: No <ABHISHEK Ellington - Last Filed: 04/25/25 22:08> ROS Obtained: Yes All systems reviewed & no additional complaints except as documented Physical Exam <ABHISHEK Ellington - Last Filed: 04/25/25 22:08> General General appearance: alert and in no apparent distress Head Head exam: atraumatic and normocephalic Eye Eye exam: Present PERRL and EOMI ENT ENT exam: Present mucous membranes moist Neck Neck exam: Present normal inspection Chest Chest inspection: Present normal inspection and symmetric chest wall rise Respiratory Respiratory exam: Present normal lung sounds bilaterally; Absent respiratory distress Cardiovascular Cardiovascular exam: Present regular rate and normal rhythm Abdominal Exam Abdominal exam: Present soft and tenderness; Absent guarding, rebound or rigidity Abdominal tenderness: Present LLQ and epigastrium Extremities Exam Extremities exam: Present normal inspection Neurological Exam Neurological exam: Present alert and oriented X3 Psychiatric Psychiatric exam: Present normal affect Skin Skin exam: Present warm and dry Medical Decision Making <ABHISHEK Ellington - Last Filed: 04/25/25 22:08> Medical Records Medical records reviewed: Yes I reviewed the patient's medical records. Screening: Per USPSTF and CDC recommendations, given the prevalence of disease in our region, it is our hospital?s policy to screen for HIV and viral Hepatitis for all patients aged 18 and over and those with ongoing risk factors. Misha Inquiry Pt receiving controlled substance: Yes Misha was queried for this patient: No Risks and benefits of using a controlled substance: were discussed with pt by me Vital Signs: 04/25/25 13:32 04/25/25 13:32 04/25/25 13:33 Temperature 98 F 98 F Temperature Source Oral Oral Pulse Rate 104 H 105 H Pulse Rate [Right] 104 H Respiratory Rate 18 18 Blood Pressure 158/99 H 158/99 H Blood Pressure [Right Arm] 158/99 H Blood Pressure Mean Blood Pressure Mean [Right Arm] 118 Blood Pressure Source Automatic Cuff Blood Pressure Source [Right Arm] Automatic Cuff Blood Pressure Position Supine Blood Pressure Position [Right Arm] Supine 02 Sat by Pulse Oximetry 99 99 98 Oxygen Delivery Method Room Air Room Air 04/25/25 14:00 04/25/25 14:30 04/25/25 14:44 Temperature Temperature Source Pulse Rate 96 H 96 H 88 Pulse Rate [Right] Respiratory Rate Blood Pressure 137/94 H 136/94 H Blood Pressure [Right Arm] Blood Pressure Mean Blood Pressure Mean [Right Arm] Blood Pressure Source Blood Pressure Source [Right Arm] Blood Pressure Position Blood Pressure Position [Right Arm] 02 Sat by Pulse Oximetry 97 100 99 Oxygen Delivery Method 04/25/25 15:00 04/25/25 15:30 04/25/25 15:45 Temperature Temperature Source Pulse Rate 86 89 93 H Pulse Rate [Right] Respiratory Rate 17 18 18 Blood Pressure 150/98 H 136/94 H Blood Pressure [Right Arm] Blood Pressure Mean Blood Pressure Mean [Right Arm] Blood Pressure Source Blood Pressure Source [Right Arm] Blood Pressure Position Blood Pressure Position [Right Arm] 02 Sat by Pulse Oximetry 100 99 100 Oxygen Delivery Method 04/25/25 16:00 04/25/25 16:30 04/25/25 17:00 Temperature Temperature Source Pulse Rate 95 H 91 H 94 H Pulse Rate [Right] Respiratory Rate 17 15 14 Blood Pressure 141/93 H 141/98 H 143/95 H Blood Pressure [Right Arm] Blood Pressure Mean Blood Pressure Mean [Right Arm] Blood Pressure Source Blood Pressure Source [Right Arm] Blood Pressure Position Blood Pressure Position [Right Arm] 02 Sat by Pulse Oximetry 100 98 99 Oxygen Delivery Method 04/25/25 17:30 04/25/25 18:00 04/25/25 18:53 Temperature Temperature Source Pulse Rate 91 H 99 H Pulse Rate [Right] Respiratory Rate 15 13 11 L Blood Pressure 176/107 H Blood Pressure [Right Arm] Blood Pressure Mean Blood Pressure Mean [Right Arm] Blood Pressure Source Blood Pressure Source [Right Arm] Blood Pressure Position Blood Pressure Position [Right Arm] 02 Sat by Pulse Oximetry 100 98 Oxygen Delivery Method 04/25/25 18:54 04/25/25 19:01 04/25/25 19:42 Temperature Temperature Source Pulse Rate 99 H 85 91 H Pulse Rate [Right] Respiratory Rate 13 15 15 Blood Pressure 178/107 H 171/115 H 169/98 H Blood Pressure [Right Arm] Blood Pressure Mean 121 Blood Pressure Mean [Right Arm] Blood Pressure Source Blood Pressure Source [Right Arm] Blood Pressure Position Blood Pressure Position [Right Arm] 02 Sat by Pulse Oximetry 95 97 99 Oxygen Delivery Method 04/25/25 20:01 04/25/25 20:31 04/25/25 21:00 Temperature Temperature Source Pulse Rate 108 H 96 H 97 H Pulse Rate [Right] Respiratory Rate 15 16 12 Blood Pressure 173/82 H 141/89 H Blood Pressure [Right Arm] Blood Pressure Mean 112 104 Blood Pressure Mean [Right Arm] Blood Pressure Source Blood Pressure Source [Right Arm] Blood Pressure Position Blood Pressure Position [Right Arm] 02 Sat by Pulse Oximetry 98 98 98 Oxygen Delivery Method Room Air 04/25/25 21:00 04/25/25 21:15 04/25/25 21:42 Temperature Temperature Source Pulse Rate 92 H 101 H Pulse Rate [Right] Respiratory Rate 11 L Blood Pressure 137/67 Blood Pressure [Right Arm] Blood Pressure Mean 90 Blood Pressure Mean [Right Arm] Blood Pressure Source Blood Pressure Source [Right Arm] Blood Pressure Position Blood Pressure Position [Right Arm] 02 Sat by Pulse Oximetry 98 93 L Oxygen Delivery Method Room Air Room Air 04/25/25 21:43 04/25/25 21:43 04/25/25 21:45 Temperature Temperature Source Pulse Rate 101 H 101 H Pulse Rate [Right] Respiratory Rate 12 12 Blood Pressure 166/94 H Blood Pressure [Right Arm] Blood Pressure Mean 103 Blood Pressure Mean [Right Arm] Blood Pressure Source Blood Pressure Source [Right Arm] Blood Pressure Position Blood Pressure Position [Right Arm] 02 Sat by Pulse Oximetry 96 97 Oxygen Delivery Method Room Air Room Air 04/25/25 22:00 04/25/25 22:00 04/25/25 22:15 Temperature Temperature Source Pulse Rate 92 H 91 H Pulse Rate [Right] Respiratory Rate 10 L 12 Blood Pressure 167/106 H Blood Pressure [Right Arm] Blood Pressure Mean 122 Blood Pressure Mean [Right Arm] Blood Pressure Source Blood Pressure Source [Right Arm] Blood Pressure Position Blood Pressure Position [Right Arm] 02 Sat by Pulse Oximetry 98 97 Oxygen Delivery Method Room Air Room Air 04/25/25 22:30 04/25/25 22:31 04/25/25 22:31 Temperature Temperature Source Pulse Rate 95 H 105 H Pulse Rate [Right] Respiratory Rate 15 15 Blood Pressure 165/126 H Blood Pressure [Right Arm] Blood Pressure Mean 135 Blood Pressure Mean [Right Arm] Blood Pressure Source Blood Pressure Source [Right Arm] Blood Pressure Position Blood Pressure Position [Right Arm] 02 Sat by Pulse Oximetry 97 97 Oxygen Delivery Method Room Air Room Air 04/25/25 22:39 04/25/25 22:39 04/25/25 22:45 Temperature Temperature Source Pulse Rate 94 H 89 Pulse Rate [Right] Respiratory Rate 15 14 Blood Pressure 147/87 H Blood Pressure [Right Arm] Blood Pressure Mean 107 Blood Pressure Mean [Right Arm] Blood Pressure Source Blood Pressure Source [Right Arm] Blood Pressure Position Blood Pressure Position [Right Arm] 02 Sat by Pulse Oximetry 95 97 Oxygen Delivery Method Room Air Room Air 04/25/25 23:00 04/25/25 23:00 Temperature Temperature Source Pulse Rate 86 Pulse Rate [Right] Respiratory Rate 11 L Blood Pressure 151/105 H Blood Pressure [Right Arm] Blood Pressure Mean 119 Blood Pressure Mean [Right Arm] Blood Pressure Source Blood Pressure Source [Right Arm] Blood Pressure Position Blood Pressure Position [Right Arm] 02 Sat by Pulse Oximetry 96 Oxygen Delivery Method Room Air Lab Data Lab results reviewed: Yes I reviewed the patient's lab results. Lab Results 04/25/25 14:21: Urine Color Yellow, Urine Appearance Clear, Urine pH 6.5, Ur Specific [place] 1.025, Urine Protein Negative, Urine Glucose (UA) Negative, Urine Ketones Trace, Urine Blood Negative, Urine Nitrate Negative, Urine Bilirubin 1+ A, Urine Urobilinogen 1.0, Ur Leukocyte Esterase Negative, Urine RBC None, Urine WBC None, Ur Squamous Epith Cells None, Calcium Oxalate Crystal Trace, Urine Bacteria None, Urine Opiates Screen Positive H, Urine Methadone Screen Negative, Ur Barbituates Screen Positive H, Ur Phencyclidine Scrn Negative, Ur Amphetamines Screen Negative, U Benzodiazepines Scrn Negative, Urine Cocaine Screen Negative, U Marijuana (THC) Screen Negative 04/25/25 14:39: WBC 4.2 L, RBC 3.57 L, Hgb 10.9 L, Hct 33.9 L, MCV 95.0, MCH 30.5, MCHC 32.2, RDW 13.1, Plt Count 208, MPV 9.6, Neut % (Auto) 52.2, Lymph % (Auto) 38.3, [place] % (Auto) 6.9, Eos % (Auto) 1.7, Baso % (Auto) 0.7, Neut # (Auto) 2.2, Lymph # (Auto) 1.6, [place] # (Auto) 0.3, Eos # (Auto) 0.1, Baso # (Auto) 0.0, Sodium 144, Potassium 3.3 L, Chloride 108 H, Carbon Dioxide 25, Anion Gap 14.3, BUN 15, Creatinine 0.60, Estimated Creat Clear 162, Estimated GFR 108, Est GFR ( Amer) 130, Glucose 78, Lactate 1.0, Calcium 8.9, Magnesium 2.1, Total Bilirubin 0.4, AST 23 D, ALT 18, Alkaline Phosphatase 78, Total Protein 7.4 D, Albumin 4.6, Globulin 2.8, Albumin/Globulin Ratio 1.6, Lipase 60, Plasma/Serum Alcohol < 10, HCV Ab JESSICA w/Rflx PCR Qn Negative, HIV Ag/Ab Combo Qual Negative 04/25/25 14:39 04/25/25 14:39 Orders (Tests/Meds): ED MEDICATIONS Discontinued Medications Generic Name Dose Route Start Last Admin Trade Name Freq PRN Reason Stop Dose Admin Acetaminophen 1,000 mg 04/25/25 22:31 04/25/25 22:33 Acetaminophen 1,000mg/100ml Vial IV 04/25/25 22:32 1,000 mg ONCE ONE Administration Droperidol 2.5 mg 04/25/25 23:06 04/25/25 23:15 Droperidol 5mg/2ml Vial IV 04/25/25 23:07 2.5 mg ONCE ONE Administration Hydromorphone HCl 0.5 mg 04/25/25 13:46 04/25/25 14:39 Hydromorphone 2mg/Ml Syringe IV 04/25/25 13:47 0.5 mg ONCE ONE Administration Hydromorphone HCl 0.5 mg 04/25/25 14:59 04/25/25 15:05 Hydromorphone 2mg/Ml Syringe IV 04/25/25 15:00 0.5 mg ONCE ONE Administration Hydromorphone HCl 1 mg 04/25/25 16:18 04/25/25 16:58 Hydromorphone 2mg/Ml Syringe IV 04/25/25 16:19 1 mg ONCE ONE Administration Hydromorphone HCl 0.5 mg 04/25/25 18:32 04/25/25 18:46 Hydromorphone 2mg/Ml Syringe IV 04/25/25 18:33 0.5 mg ONCE ONE Administration Hydromorphone HCl 0.25 mg 04/25/25 20:13 04/25/25 20:29 Hydromorphone 2mg/Ml Syringe IV 04/25/25 20:14 0.25 mg ONCE ONE Administration Lactated Ringer's 1,000 mls @ 999 mls/hr 04/25/25 16:18 04/25/25 18:07 Lactated Ringer's 1000 Ml Bag IV 04/25/25 17:18 Infused .Q1H1M ONE Infusion Ondansetron HCl 4 mg 04/25/25 13:47 04/25/25 14:38 Ondansetron 4mg/2ml Vial IV 04/25/25 13:48 4 mg ONCE ONE Administration Ondansetron HCl 4 mg 04/25/25 16:57 04/25/25 17:00 Ondansetron 4mg/2ml Vial IV 04/25/25 16:58 4 mg ONCE ONE Administration Ondansetron HCl 4 mg 04/25/25 17:29 04/25/25 17:32 Ondansetron 4mg/2ml Vial IV 04/25/25 17:30 4 mg ONCE ONE Administration Ondansetron HCl 4 mg 04/25/25 19:50 04/25/25 19:55 Ondansetron 4mg/2ml Vial IV 04/25/25 19:51 4 mg ONCE ONE Administration Ondansetron HCl 4 mg 04/25/25 20:14 04/25/25 20:15 Ondansetron 4mg/2ml Vial IV 04/25/25 20:15 Not Given ONCE ONE Potassium Chloride 40 meq 04/25/25 15:09 04/25/25 15:38 Potassium Chloride 20meq Tab PO 04/25/25 15:10 40 meq ONCE ONE Administration ORDERS Category Date Time Status CT abdomen pelvis wo con Stat Cat Scan 04/25/25 13:46 Completed Complete Blood Count Auto Diff Stat Lab 04/25/25 14:39 Completed Comprehensive Metabolic Panel Stat Lab 04/25/25 14:39 Completed Drug Screen,Urine Stat Lab 04/25/25 14:21 Completed Ethanol [Ethyl Alcohol] Stat Lab 04/25/25 14:39 Completed HIV Combo Stat Lab 04/25/25 14:39 Completed Hepatitis C Ab Qual. W/ RFX Stat Lab 04/25/25 14:39 Completed Lactic Acid Stat Lab 04/25/25 14:39 Completed Lipase Stat Lab 04/25/25 14:39 Completed Magnesium Stat Lab 04/25/25 14:39 Completed Urinalysis and Microscopic Stat Lab 04/25/25 14:21 Completed Medical Decision Narrative: 44-year-old female presents the emergency department with abdominal pain nausea vomiting poor p.o. intake, for the last 24 hours, differential diagnose include but not limited to gastroparesis, colitis, ileitis, acute pancreatitis, cannabinol hyperemesis syndrome, opioid-induced constipation, bowel obstruction, chronic pancreatitis, volvulus, among others I discussed this patient's case with attending physician Dr. Campbell Will obtain basic laboratory studies, UDS, ethyl alcohol level, lactic acid level lipase level magnesium level UA, CT ab pelvis without contrast, 0.5 mg IV Dilaudid and 4 mg of Zofran begin for pain and nausea. CBC is notable for neutropenia at 4.2, erythrocytopina at 3.57, hemoglobin is 10.9 hematocrit is 33.9, which is improved since previous hospitalization UA is notable for 1+ bili, trace ketonuria negative leukocyte esterase, negative nitrite. I reviewed the patient's CT abdomen pelvis without contrast along the corresponding radiologic report, small amount of edema adjacent to the body and tail of the pancreas indeterminate correlate with pancreatic enzymes for acute pancreatitis no fluid collections are noted, cholecystectomy?bypass surgery, subtle increased density of the central mesentery with mildly prominent mesenteric lymph nodes extensive metastatic pannicullitis Microscopic analysis of the urine is unremarkable with the exception of trace calcium oxalate crystals and no urine bacteria. I was notified by nursing staff at approximately 2:57 PM that the patient is still complaining of some pain, will give additional dose 0.5 mg IV Dilaudid for pain. Mild hypokalemia at 3.3 noted on CMP no lactic acidosis, will give 40 mill p.o. potassium for replacement UDS is notable for opiates and barbiturates otherwise alcohol level within normal limits Lipase is 60 I had a long discussion with Dr. Romero, the hospitalist physician at 4:10 PM, at this time he believes the patient may benefit from potential consult/transfer with bariatric surgeon team at [facility], due to history of gastric sleeve and acute on chronic pancreatitis. Initially the hospital physician was going to obtain gastric emptying study several days ago prior to discharge, unsure/data deficient history of gastroparesis/gastric outlet obstruction. Thus we will obtain consultation/call [place] bariatric surgeons for further recommendations/potential transfer. I discussed this with the patient at approximately 4:15 PM, patient still having some pain and nausea has improved was able to tolerate p.o. intake, will give 1 mg Dilaudid for pain and give 1 L LR IV. Was notified by nursing staff at approximately 4:55 PM, the patient is complaining of nausea again will give 4 mg IV Zofran. I discussed this patient's case with hospitalist physician at [facility] at approximately 6:40 PM, he is in agreement with the treatment plan/transfer plan, with bariatric surgery consultation in the setting of acute on chronic pancreatitis history of gastric sleeve and intractable nausea vomiting and intractable abdominal pain. I discussed need for transfer with the patient family bedside patient family are in agreement with current treatment plan/transfer plan. Upon reexamination the patient approximately 6:45 PM, patient still complaining of some pain, will give additional 0.5 mg IV Dilaudid for pain. I was notified by nursing staff at approximately 7:42 PM that the patient is complaining of nausea, will obtain EKG and then give patient additional dose of 4 mg of Zofran. I along with the attending physician reviewed the patient's repeat EKG, NSR at 88 bpm. WA intervals, within normal limit, QT intervals, 356/401. Patient still running of some pain at around 8:13 PM, will give 0.25 IV Dilaudid additional dose. Still pending transport to [facility]. Still pending transport to [facility] I discussed this patient's case with Dr. Pak the attending physician at shift change, disposition is pending transport. <Nicolas Pak MD - Last Filed: 04/25/25 22:31> Vital Signs: 04/25/25 13:32 04/25/25 13:32 04/25/25 13:33 Temperature 98 F 98 F Temperature Source Oral Oral Pulse Rate 104 H 105 H Pulse Rate [Right] 104 H Respiratory Rate 18 18 Blood Pressure 158/99 H 158/99 H Blood Pressure [Right Arm] 158/99 H Blood Pressure Mean Blood Pressure Mean [Right Arm] 118 Blood Pressure Source Automatic Cuff Blood Pressure Source [Right Arm] Automatic Cuff Blood Pressure Position Supine Blood Pressure Position [Right Arm] Supine 02 Sat by Pulse Oximetry 99 99 98 Oxygen Delivery Method Room Air Room Air 04/25/25 14:00 04/25/25 14:30 04/25/25 14:44 Temperature Temperature Source Pulse Rate 96 H 96 H 88 Pulse Rate [Right] Respiratory Rate Blood Pressure 137/94 H 136/94 H Blood Pressure [Right Arm] Blood Pressure Mean Blood Pressure Mean [Right Arm] Blood Pressure Source Blood Pressure Source [Right Arm] Blood Pressure Position Blood Pressure Position [Right Arm] 02 Sat by Pulse Oximetry 97 100 99 Oxygen Delivery Method 04/25/25 15:00 04/25/25 15:30 04/25/25 15:45 Temperature Temperature Source Pulse Rate 86 89 93 H Pulse Rate [Right] Respiratory Rate 17 18 18 Blood Pressure 150/98 H 136/94 H Blood Pressure [Right Arm] Blood Pressure Mean Blood Pressure Mean [Right Arm] Blood Pressure Source Blood Pressure Source [Right Arm] Blood Pressure Position Blood Pressure Position [Right Arm] 02 Sat by Pulse Oximetry 100 99 100 Oxygen Delivery Method 04/25/25 16:00 04/25/25 16:30 04/25/25 17:00 Temperature Temperature Source Pulse Rate 95 H 91 H 94 H Pulse Rate [Right] Respiratory Rate 17 15 14 Blood Pressure 141/93 H 141/98 H 143/95 H Blood Pressure [Right Arm] Blood Pressure Mean Blood Pressure Mean [Right Arm] Blood Pressure Source Blood Pressure Source [Right Arm] Blood Pressure Position Blood Pressure Position [Right Arm] 02 Sat by Pulse Oximetry 100 98 99 Oxygen Delivery Method 04/25/25 17:30 04/25/25 18:00 04/25/25 18:53 Temperature Temperature Source Pulse Rate 91 H 99 H Pulse Rate [Right] Respiratory Rate 15 13 11 L Blood Pressure 176/107 H Blood Pressure [Right Arm] Blood Pressure Mean Blood Pressure Mean [Right Arm] Blood Pressure Source Blood Pressure Source [Right Arm] Blood Pressure Position Blood Pressure Position [Right Arm] 02 Sat by Pulse Oximetry 100 98 Oxygen Delivery Method 04/25/25 18:54 04/25/25 19:01 04/25/25 19:42 Temperature Temperature Source Pulse Rate 99 H 85 91 H Pulse Rate [Right] Respiratory Rate 13 15 15 Blood Pressure 178/107 H 171/115 H 169/98 H Blood Pressure [Right Arm] Blood Pressure Mean 121 Blood Pressure Mean [Right Arm] Blood Pressure Source Blood Pressure Source [Right Arm] Blood Pressure Position Blood Pressure Position [Right Arm] 02 Sat by Pulse Oximetry 95 97 99 Oxygen Delivery Method 04/25/25 20:01 04/25/25 20:31 04/25/25 21:00 Temperature Temperature Source Pulse Rate 108 H 96 H 97 H Pulse Rate [Right] Respiratory Rate 15 16 12 Blood Pressure 173/82 H 141/89 H Blood Pressure [Right Arm] Blood Pressure Mean 112 104 Blood Pressure Mean [Right Arm] Blood Pressure Source Blood Pressure Source [Right Arm] Blood Pressure Position Blood Pressure Position [Right Arm] 02 Sat by Pulse Oximetry 98 98 98 Oxygen Delivery Method Room Air 04/25/25 21:00 04/25/25 21:15 04/25/25 21:42 Temperature Temperature Source Pulse Rate 92 H 101 H Pulse Rate [Right] Respiratory Rate 11 L Blood Pressure 137/67 Blood Pressure [Right Arm] Blood Pressure Mean 90 Blood Pressure Mean [Right Arm] Blood Pressure Source Blood Pressure Source [Right Arm] Blood Pressure Position Blood Pressure Position [Right Arm] 02 Sat by Pulse Oximetry 98 93 L Oxygen Delivery Method Room Air Room Air 04/25/25 21:43 04/25/25 21:43 04/25/25 21:45 Temperature Temperature Source Pulse Rate 101 H 101 H Pulse Rate [Right] Respiratory Rate 12 12 Blood Pressure 166/94 H Blood Pressure [Right Arm] Blood Pressure Mean 103 Blood Pressure Mean [Right Arm] Blood Pressure Source Blood Pressure Source [Right Arm] Blood Pressure Position Blood Pressure Position [Right Arm] 02 Sat by Pulse Oximetry 96 97 Oxygen Delivery Method Room Air Room Air 04/25/25 22:00 04/25/25 22:00 04/25/25 22:15 Temperature Temperature Source Pulse Rate 92 H 91 H Pulse Rate [Right] Respiratory Rate 10 L 12 Blood Pressure 167/106 H Blood Pressure [Right Arm] Blood Pressure Mean 122 Blood Pressure Mean [Right Arm] Blood Pressure Source Blood Pressure Source [Right Arm] Blood Pressure Position Blood Pressure Position [Right Arm] 02 Sat by Pulse Oximetry 98 97 Oxygen Delivery Method Room Air Room Air 04/25/25 22:30 04/25/25 22:31 04/25/25 22:31 Temperature Temperature Source Pulse Rate 95 H 105 H Pulse Rate [Right] Respiratory Rate 15 15 Blood Pressure 165/126 H Blood Pressure [Right Arm] Blood Pressure Mean 135 Blood Pressure Mean [Right Arm] Blood Pressure Source Blood Pressure Source [Right Arm] Blood Pressure Position Blood Pressure Position [Right Arm] 02 Sat by Pulse Oximetry 97 97 Oxygen Delivery Method Room Air Room Air 04/25/25 22:39 04/25/25 22:39 04/25/25 22:45 Temperature Temperature Source Pulse Rate 94 H 89 Pulse Rate [Right] Respiratory Rate 15 14 Blood Pressure 147/87 H Blood Pressure [Right Arm] Blood Pressure Mean 107 Blood Pressure Mean [Right Arm] Blood Pressure Source Blood Pressure Source [Right Arm] Blood Pressure Position Blood Pressure Position [Right Arm] 02 Sat by Pulse Oximetry 95 97 Oxygen Delivery Method Room Air Room Air 04/25/25 23:00 04/25/25 23:00 Temperature Temperature Source Pulse Rate 86 Pulse Rate [Right] Respiratory Rate 11 L Blood Pressure 151/105 H Blood Pressure [Right Arm] Blood Pressure Mean 119 Blood Pressure Mean [Right Arm] Blood Pressure Source Blood Pressure Source [Right Arm] Blood Pressure Position Blood Pressure Position [Right Arm] 02 Sat by Pulse Oximetry 96 Oxygen Delivery Method Room Air Lab Data Lab Results 04/25/25 14:21: Urine Color Yellow, Urine Appearance Clear, Urine pH 6.5, Ur Specific [place] 1.025, Urine Protein Negative, Urine Glucose (UA) Negative, Urine Ketones Trace, Urine Blood Negative, Urine Nitrate Negative, Urine Bilirubin 1+ A, Urine Urobilinogen 1.0, Ur Leukocyte Esterase Negative, Urine RBC None, Urine WBC None, Ur Squamous Epith Cells None, Calcium Oxalate Crystal Trace, Urine Bacteria None, Urine Opiates Screen Positive H, Urine Methadone Screen Negative, Ur Barbituates Screen Positive H, Ur Phencyclidine Scrn Negative, Ur Amphetamines Screen Negative, U Benzodiazepines Scrn Negative, Urine Cocaine Screen Negative, U Marijuana (THC) Screen Negative 04/25/25 14:39: WBC 4.2 L, RBC 3.57 L, Hgb 10.9 L, Hct 33.9 L, MCV 95.0, MCH 30.5, MCHC 32.2, RDW 13.1, Plt Count 208, MPV 9.6, Neut % (Auto) 52.2, Lymph % (Auto) 38.3, [place] % (Auto) 6.9, Eos % (Auto) 1.7, Baso % (Auto) 0.7, Neut # (Auto) 2.2, Lymph # (Auto) 1.6, [place] # (Auto) 0.3, Eos # (Auto) 0.1, Baso # (Auto) 0.0, Sodium 144, Potassium 3.3 L, Chloride 108 H, Carbon Dioxide 25, Anion Gap 14.3, BUN 15, Creatinine 0.60, Estimated Creat Clear 162, Estimated GFR 108, Est GFR ( Amer) 130, Glucose 78, Lactate 1.0, Calcium 8.9, Magnesium 2.1, Total Bilirubin 0.4, AST 23 D, ALT 18, Alkaline Phosphatase 78, Total Protein 7.4 D, Albumin 4.6, Globulin 2.8, Albumin/Globulin Ratio 1.6, Lipase 60, Plasma/Serum Alcohol < 10, HCV Ab JESSICA w/Rflx PCR Qn Negative, HIV Ag/Ab Combo Qual Negative Orders (Tests/Meds): ED MEDICATIONS Discontinued Medications Generic Name Dose Route Start Last Admin Trade Name Freq PRN Reason Stop Dose Admin Acetaminophen 1,000 mg 04/25/25 22:31 04/25/25 22:33 Acetaminophen 1,000mg/100ml Vial IV 04/25/25 22:32 1,000 mg ONCE ONE Administration Droperidol 2.5 mg 04/25/25 23:06 04/25/25 23:15 Droperidol 5mg/2ml Vial IV 04/25/25 23:07 2.5 mg ONCE ONE Administration Hydromorphone HCl 0.5 mg 04/25/25 13:46 04/25/25 14:39 Hydromorphone 2mg/Ml Syringe IV 04/25/25 13:47 0.5 mg ONCE ONE Administration Hydromorphone HCl 0.5 mg 04/25/25 14:59 04/25/25 15:05 Hydromorphone 2mg/Ml Syringe IV 04/25/25 15:00 0.5 mg ONCE ONE Administration Hydromorphone HCl 1 mg 04/25/25 16:18 04/25/25 16:58 Hydromorphone 2mg/Ml Syringe IV 04/25/25 16:19 1 mg ONCE ONE Administration Hydromorphone HCl 0.5 mg 04/25/25 18:32 04/25/25 18:46 Hydromorphone 2mg/Ml Syringe IV 04/25/25 18:33 0.5 mg ONCE ONE Administration Hydromorphone HCl 0.25 mg 04/25/25 20:13 04/25/25 20:29 Hydromorphone 2mg/Ml Syringe IV 04/25/25 20:14 0.25 mg ONCE ONE Administration Lactated Ringer's 1,000 mls @ 999 mls/hr 04/25/25 16:18 04/25/25 18:07 Lactated Ringer's 1000 Ml Bag IV 04/25/25 17:18 Infused .Q1H1M ONE Infusion Ondansetron HCl 4 mg 04/25/25 13:47 04/25/25 14:38 Ondansetron 4mg/2ml Vial IV 04/25/25 13:48 4 mg ONCE ONE Administration Ondansetron HCl 4 mg 04/25/25 16:57 04/25/25 17:00 Ondansetron 4mg/2ml Vial IV 04/25/25 16:58 4 mg ONCE ONE Administration Ondansetron HCl 4 mg 04/25/25 17:29 04/25/25 17:32 Ondansetron 4mg/2ml Vial IV 04/25/25 17:30 4 mg ONCE ONE Administration Ondansetron HCl 4 mg 04/25/25 19:50 04/25/25 19:55 Ondansetron 4mg/2ml Vial IV 04/25/25 19:51 4 mg ONCE ONE Administration Ondansetron HCl 4 mg 04/25/25 20:14 04/25/25 20:15 Ondansetron 4mg/2ml Vial IV 04/25/25 20:15 Not Given ONCE ONE Potassium Chloride 40 meq 04/25/25 15:09 04/25/25 15:38 Potassium Chloride 20meq Tab PO 04/25/25 15:10 40 meq ONCE ONE Administration ORDERS Category Date Time Status CT abdomen pelvis wo con Stat Cat Scan 04/25/25 13:46 Completed Complete Blood Count Auto Diff Stat Lab 04/25/25 14:39 Completed Comprehensive Metabolic Panel Stat Lab 04/25/25 14:39 Completed Drug Screen,Urine Stat Lab 04/25/25 14:21 Completed Ethanol [Ethyl Alcohol] Stat Lab 04/25/25 14:39 Completed HIV Combo Stat Lab 04/25/25 14:39 Completed Hepatitis C Ab Qual. W/ RFX Stat Lab 04/25/25 14:39 Completed Lactic Acid Stat Lab 04/25/25 14:39 Completed Lipase Stat Lab 04/25/25 14:39 Completed Magnesium Stat Lab 04/25/25 14:39 Completed Urinalysis and Microscopic Stat Lab 04/25/25 14:21 Completed Medical Decision Narrative: 44-year-old female presents the emergency department with abdominal pain nausea vomiting poor p.o. intake, for the last 24 hours, differential diagnose include but not limited to gastroparesis, colitis, ileitis, acute pancreatitis, cannabinol hyperemesis syndrome, opioid-induced constipation, bowel obstruction, chronic pancreatitis, volvulus, among others I discussed this patient's case with attending physician Dr. Campbell Will obtain basic laboratory studies, UDS, ethyl alcohol level, lactic acid level lipase level magnesium level UA, CT ab pelvis without contrast, 0.5 mg IV Dilaudid and 4 mg of Zofran begin for pain and nausea. CBC is notable for neutropenia at 4.2, erythrocytopina at 3.57, hemoglobin is 10.9 hematocrit is 33.9, which is improved since previous hospitalization UA is notable for 1+ bili, trace ketonuria negative leukocyte esterase, negative nitrite. I reviewed the patient's CT abdomen pelvis without contrast along the corresponding radiologic report, small amount of edema adjacent to the body and tail of the pancreas indeterminate correlate with pancreatic enzymes for acute pancreatitis no fluid collections are noted, cholecystectomy?bypass surgery, subtle increased density of the central mesentery with mildly prominent mesenteric lymph nodes extensive metastatic pannicullitis Microscopic analysis of the urine is unremarkable with the exception of trace calcium oxalate crystals and no urine bacteria. I was notified by nursing staff at approximately 2:57 PM that the patient is still complaining of some pain, will give additional dose 0.5 mg IV Dilaudid for pain. Mild hypokalemia at 3.3 noted on CMP no lactic acidosis, will give 40 mill p.o. potassium for replacement UDS is notable for opiates and barbiturates otherwise alcohol level within normal limits Lipase is 60 I had a long discussion with Dr. Romero, the hospitalist physician at 4:10 PM, at this time he believes the patient may benefit from potential consult/transfer with bariatric surgeon team at [facility], due to history of gastric sleeve and acute on chronic pancreatitis. Initially the hospital physician was going to obtain gastric emptying study several days ago prior to discharge, unsure/data deficient history of gastroparesis/gastric outlet obstruction. Thus we will obtain consultation/call [place] bariat[facility] surgeons for further recommendations/potential transfer. I discussed this with the patient at approximately 4:15 PM, patient still having some pain and nausea has improved was able to tolerate p.o. intake, will give 1 mg Dilaudid for pain and give 1 L LR IV. Was notified by nursing staff at approximately 4:55 PM, the patient is complaining of nausea again will give 4 mg IV Zofran. I discussed this patient's case with hospitalist physician at [facility] at approximately 6:40 PM, he is in agreement with the treatment plan/transfer plan, with bariatric surgery consultation in the setting of acute on chronic pancreatitis history of gastric sleeve and intractable nausea vomiting and intractable abdominal pain. I discussed need for transfer with the patient family bedside patient family are in agreement with current treatment plan/transfer plan. Upon reexamination the patient approximately 6:45 PM, patient still complaining of some pain, will give additional 0.5 mg IV Dilaudid for pain. I was notified by nursing staff at approximately 7:42 PM that the patient is complaining of nausea, will obtain EKG and then give patient additional dose of 4 mg of Zofran. I along with the attending physician reviewed the patient's repeat EKG, NSR at 88 bpm. WA intervals, within normal limit, QT intervals, 356/401. Patient still running of some pain at around 8:13 PM, will give 0.25 IV Dilaudid additional dose. Still pending transport to [facility]. Still pending transport to [facility] I discussed this patient's case with Dr. Pak the attending physician at shift change, disposition is pending transport. I was consulted by the MER[facility], and we discussed the complexity of the problems being addressed. I approve the treatment and management plan for this patient's care in the emergency department, thus performing a substantive portion of the medical decision making. Nicolas Pak MD <Sage Chino MD - Last Filed: 04/25/25 23:33> Vital Signs: 04/25/25 13:32 04/25/25 13:32 04/25/25 13:33 Temperature 98 F 98 F Temperature Source Oral Oral Pulse Rate 104 H 105 H Pulse Rate [Right] 104 H Respiratory Rate 18 18 Blood Pressure 158/99 H 158/99 H Blood Pressure [Right Arm] 158/99 H Blood Pressure Mean Blood Pressure Mean [Right Arm] 118 Blood Pressure Source Automatic Cuff Blood Pressure Source [Right Arm] Automatic Cuff Blood Pressure Position Supine Blood Pressure Position [Right Arm] Supine 02 Sat by Pulse Oximetry 99 99 98 Oxygen Delivery Method Room Air Room Air 04/25/25 14:00 04/25/25 14:30 04/25/25 14:44 Temperature Temperature Source Pulse Rate 96 H 96 H 88 Pulse Rate [Right] Respiratory Rate Blood Pressure 137/94 H 136/94 H Blood Pressure [Right Arm] Blood Pressure Mean Blood Pressure Mean [Right Arm] Blood Pressure Source Blood Pressure Source [Right Arm] Blood Pressure Position Blood Pressure Position [Right Arm] 02 Sat by Pulse Oximetry 97 100 99 Oxygen Delivery Method 04/25/25 15:00 04/25/25 15:30 04/25/25 15:45 Temperature Temperature Source Pulse Rate 86 89 93 H Pulse Rate [Right] Respiratory Rate 17 18 18 Blood Pressure 150/98 H 136/94 H Blood Pressure [Right Arm] Blood Pressure Mean Blood Pressure Mean [Right Arm] Blood Pressure Source Blood Pressure Source [Right Arm] Blood Pressure Position Blood Pressure Position [Right Arm] 02 Sat by Pulse Oximetry 100 99 100 Oxygen Delivery Method 04/25/25 16:00 04/25/25 16:30 04/25/25 17:00 Temperature Temperature Source Pulse Rate 95 H 91 H 94 H Pulse Rate [Right] Respiratory Rate 17 15 14 Blood Pressure 141/93 H 141/98 H 143/95 H Blood Pressure [Right Arm] Blood Pressure Mean Blood Pressure Mean [Right Arm] Blood Pressure Source Blood Pressure Source [Right Arm] Blood Pressure Position Blood Pressure Position [Right Arm] 02 Sat by Pulse Oximetry 100 98 99 Oxygen Delivery Method 04/25/25 17:30 04/25/25 18:00 04/25/25 18:53 Temperature Temperature Source Pulse Rate 91 H 99 H Pulse Rate [Right] Respiratory Rate 15 13 11 L Blood Pressure 176/107 H Blood Pressure [Right Arm] Blood Pressure Mean Blood Pressure Mean [Right Arm] Blood Pressure Source Blood Pressure Source [Right Arm] Blood Pressure Position Blood Pressure Position [Right Arm] 02 Sat by Pulse Oximetry 100 98 Oxygen Delivery Method 04/25/25 18:54 04/25/25 19:01 04/25/25 19:42 Temperature Temperature Source Pulse Rate 99 H 85 91 H Pulse Rate [Right] Respiratory Rate 13 15 15 Blood Pressure 178/107 H 171/115 H 169/98 H Blood Pressure [Right Arm] Blood Pressure Mean 121 Blood Pressure Mean [Right Arm] Blood Pressure Source Blood Pressure Source [Right Arm] Blood Pressure Position Blood Pressure Position [Right Arm] 02 Sat by Pulse Oximetry 95 97 99 Oxygen Delivery Method 04/25/25 20:01 04/25/25 20:31 04/25/25 21:00 Temperature Temperature Source Pulse Rate 108 H 96 H 97 H Pulse Rate [Right] Respiratory Rate 15 16 12 Blood Pressure 173/82 H 141/89 H Blood Pressure [Right Arm] Blood Pressure Mean 112 104 Blood Pressure Mean [Right Arm] Blood Pressure Source Blood Pressure Source [Right Arm] Blood Pressure Position Blood Pressure Position [Right Arm] 02 Sat by Pulse Oximetry 98 98 98 Oxygen Delivery Method Room Air 04/25/25 21:00 04/25/25 21:15 04/25/25 21:42 Temperature Temperature Source Pulse Rate 92 H 101 H Pulse Rate [Right] Respiratory Rate 11 L Blood Pressure 137/67 Blood Pressure [Right Arm] Blood Pressure Mean 90 Blood Pressure Mean [Right Arm] Blood Pressure Source Blood Pressure Source [Right Arm] Blood Pressure Position Blood Pressure Position [Right Arm] 02 Sat by Pulse Oximetry 98 93 L Oxygen Delivery Method Room Air Room Air 04/25/25 21:43 04/25/25 21:43 04/25/25 21:45 Temperature Temperature Source Pulse Rate 101 H 101 H Pulse Rate [Right] Respiratory Rate 12 12 Blood Pressure 166/94 H Blood Pressure [Right Arm] Blood Pressure Mean 103 Blood Pressure Mean [Right Arm] Blood Pressure Source Blood Pressure Source [Right Arm] Blood Pressure Position Blood Pressure Position [Right Arm] 02 Sat by Pulse Oximetry 96 97 Oxygen Delivery Method Room Air Room Air 04/25/25 22:00 04/25/25 22:00 04/25/25 22:15 Temperature Temperature Source Pulse Rate 92 H 91 H Pulse Rate [Right] Respiratory Rate 10 L 12 Blood Pressure 167/106 H Blood Pressure [Right Arm] Blood Pressure Mean 122 Blood Pressure Mean [Right Arm] Blood Pressure Source Blood Pressure Source [Right Arm] Blood Pressure Position Blood Pressure Position [Right Arm] 02 Sat by Pulse Oximetry 98 97 Oxygen Delivery Method Room Air Room Air 04/25/25 22:30 04/25/25 22:31 04/25/25 22:31 Temperature Temperature Source Pulse Rate 95 H 105 H Pulse Rate [Right] Respiratory Rate 15 15 Blood Pressure 165/126 H Blood Pressure [Right Arm] Blood Pressure Mean 135 Blood Pressure Mean [Right Arm] Blood Pressure Source Blood Pressure Source [Right Arm] Blood Pressure Position Blood Pressure Position [Right Arm] 02 Sat by Pulse Oximetry 97 97 Oxygen Delivery Method Room Air Room Air 04/25/25 22:39 04/25/25 22:39 04/25/25 22:45 Temperature Temperature Source Pulse Rate 94 H 89 Pulse Rate [Right] Respiratory Rate 15 14 Blood Pressure 147/87 H Blood Pressure [Right Arm] Blood Pressure Mean 107 Blood Pressure Mean [Right Arm] Blood Pressure Source Blood Pressure Source [Right Arm] Blood Pressure Position Blood Pressure Position [Right Arm] 02 Sat by Pulse Oximetry 95 97 Oxygen Delivery Method Room Air Room Air 04/25/25 23:00 04/25/25 23:00 Temperature Temperature Source Pulse Rate 86 Pulse Rate [Right] Respiratory Rate 11 L Blood Pressure 151/105 H Blood Pressure [Right Arm] Blood Pressure Mean 119 Blood Pressure Mean [Right Arm] Blood Pressure Source Blood Pressure Source [Right Arm] Blood Pressure Position Blood Pressure Position [Right Arm] 02 Sat by Pulse Oximetry 96 Oxygen Delivery Method Room Air Lab Data Lab Results 04/25/25 14:21: Urine Color Yellow, Urine Appearance Clear, Urine pH 6.5, Ur Specific [place] 1.025, Urine Protein Negative, Urine Glucose (UA) Negative, Urine Ketones Trace, Urine Blood Negative, Urine Nitrate Negative, Urine Bilirubin 1+ A, Urine Urobilinogen 1.0, Ur Leukocyte Esterase Negative, Urine RBC None, Urine WBC None, Ur Squamous Epith Cells None, Calcium Oxalate Crystal Trace, Urine Bacteria None, Urine Opiates Screen Positive H, Urine Methadone Screen Negative, Ur Barbituates Screen Positive H, Ur Phencyclidine Scrn Negative, Ur Amphetamines Screen Negative, U Benzodiazepines Scrn Negative, Urine Cocaine Screen Negative, U Marijuana (THC) Screen Negative 04/25/25 14:39: WBC 4.2 L, RBC 3.57 L, Hgb 10.9 L, Hct 33.9 L, MCV 95.0, MCH 30.5, MCHC 32.2, RDW 13.1, Plt Count 208, MPV 9.6, Neut % (Auto) 52.2, Lymph % (Auto) 38.3, [place] % (Auto) 6.9, Eos % (Auto) 1.7, Baso % (Auto) 0.7, Neut # (Auto) 2.2, Lymph # (Auto) 1.6, [place] # (Auto) 0.3, Eos # (Auto) 0.1, Baso # (Auto) 0.0, Sodium 144, Potassium 3.3 L, Chloride 108 H, Carbon Dioxide 25, Anion Gap 14.3, BUN 15, Creatinine 0.60, Estimated Creat Clear 162, Estimated GFR 108, Est GFR ( Amer) 130, Glucose 78, Lactate 1.0, Calcium 8.9, Magnesium 2.1, Total Bilirubin 0.4, AST 23 D, ALT 18, Alkaline Phosphatase 78, Total Protein 7.4 D, Albumin 4.6, Globulin 2.8, Albumin/Globulin Ratio 1.6, Lipase 60, Plasma/Serum Alcohol < 10, HCV Ab JESSICA w/Rflx PCR Qn Negative, HIV Ag/Ab Combo Qual Negative Orders (Tests/Meds): ED MEDICATIONS Discontinued Medications Generic Name Dose Route Start Last Admin Trade Name [place] PRN Reason Stop Dose Admin Acetaminophen 1,000 mg 04/25/25 22:31 04/25/25 22:33 Acetaminophen 1,000mg/100ml Vial IV 04/25/25 22:32 1,000 mg ONCE ONE Administration Droperidol 2.5 mg 04/25/25 23:06 04/25/25 23:15 Droperidol 5mg/2ml Vial IV 04/25/25 23:07 2.5 mg ONCE ONE Administration Hydromorphone HCl 0.5 mg 04/25/25 13:46 04/25/25 14:39 Hydromorphone 2mg/Ml Syringe IV 04/25/25 13:47 0.5 mg ONCE ONE Administration Hydromorphone HCl 0.5 mg 04/25/25 14:59 04/25/25 15:05 Hydromorphone 2mg/Ml Syringe IV 04/25/25 15:00 0.5 mg ONCE ONE Administration Hydromorphone HCl 1 mg 04/25/25 16:18 04/25/25 16:58 Hydromorphone 2mg/Ml Syringe IV 04/25/25 16:19 1 mg ONCE ONE Administration Hydromorphone HCl 0.5 mg 04/25/25 18:32 04/25/25 18:46 Hydromorphone 2mg/Ml Syringe IV 04/25/25 18:33 0.5 mg ONCE ONE Administration Hydromorphone HCl 0.25 mg 04/25/25 20:13 04/25/25 20:29 Hydromorphone 2mg/Ml Syringe IV 04/25/25 20:14 0.25 mg ONCE ONE Administration Lactated Ringer's 1,000 mls @ 999 mls/hr 04/25/25 16:18 04/25/25 18:07 Lactated Ringer's 1000 Ml Bag IV 04/25/25 17:18 Infused .Q1H1M ONE Infusion Ondansetron HCl 4 mg 04/25/25 13:47 04/25/25 14:38 Ondansetron 4mg/2ml Vial IV 04/25/25 13:48 4 mg ONCE ONE Administration Ondansetron HCl 4 mg 04/25/25 16:57 04/25/25 17:00 Ondansetron 4mg/2ml Vial IV 04/25/25 16:58 4 mg ONCE ONE Administration Ondansetron HCl 4 mg 04/25/25 17:29 04/25/25 17:32 Ondansetron 4mg/2ml Vial IV 04/25/25 17:30 4 mg ONCE ONE Administration Ondansetron HCl 4 mg 04/25/25 19:50 04/25/25 19:55 Ondansetron 4mg/2ml Vial IV 04/25/25 19:51 4 mg ONCE ONE Administration Ondansetron HCl 4 mg 04/25/25 20:14 04/25/25 20:15 Ondansetron 4mg/2ml Vial IV 04/25/25 20:15 Not Given ONCE ONE Potassium Chloride 40 meq 04/25/25 15:09 04/25/25 15:38 Potassium Chloride 20meq Tab PO 04/25/25 15:10 40 meq ONCE ONE Administration ORDERS Category Date Time Status CT abdomen pelvis wo con Stat Cat Scan 04/25/25 13:46 Completed Complete Blood Count Auto Diff Stat Lab 04/25/25 14:39 Completed Comprehensive Metabolic Panel Stat Lab 04/25/25 14:39 Completed Drug Screen,Urine Stat Lab 04/25/25 14:21 Completed Ethanol [Ethyl Alcohol] Stat Lab 04/25/25 14:39 Completed HIV Combo Stat Lab 04/25/25 14:39 Completed Hepatitis C Ab Qual. W/ RFX Stat Lab 04/25/25 14:39 Completed Lactic Acid Stat Lab 04/25/25 14:39 Completed Lipase Stat Lab 04/25/25 14:39 Completed Magnesium Stat Lab 04/25/25 14:39 Completed Urinalysis and Microscopic [facility] 04/25/25 14:21 Completed Medical Decision Narrative: 44-year-old female presents the emergency department with abdominal pain nausea vomiting poor p.o. intake, for the last 24 hours, differential diagnose include but not limited to gastroparesis, colitis, ileitis, acute pancreatitis, cannabinol hyperemesis syndrome, opioid-induced constipation, bowel obstruction, chronic pancreatitis, volvulus, among others I discussed this patient's case with attending physician Dr. Campbell Will obtain basic laboratory studies, UDS, ethyl alcohol level, lactic acid level lipase level magnesium level UA, CT ab pelvis without contrast, 0.5 mg IV Dilaudid and 4 mg of Zofran begin for pain and nausea. CBC is notable for neutropenia at 4.2, erythrocytopina at 3.57, hemoglobin is 10.9 hematocrit is 33.9, which is improved since previous hospitalization UA is notable for 1+ bili, trace ketonuria negative leukocyte esterase, negative nitrite. I reviewed the patient's CT abdomen pelvis without contrast along the corresponding radiologic report, small amount of edema adjacent to the body and tail of the pancreas indeterminate correlate with pancreatic enzymes for acute pancreatitis no fluid collections are noted, cholecystectomy?bypass surgery, subtle increased density of the central mesentery with mildly prominent mesenteric lymph nodes extensive metastatic pannicullitis Microscopic analysis of the urine is unremarkable with the exception of trace calcium oxalate crystals and no urine bacteria. I was notified by nursing staff at approximately 2:57 PM that the patient is still complaining of some pain, will give additional dose 0.5 mg IV Dilaudid for pain. Mild hypokalemia at 3.3 noted on CMP no lactic acidosis, will give 40 mill p.o. potassium for replacement UDS is notable for opiates and barbiturates otherwise alcohol level within normal limits Lipase is 60 I had a long discussion with Dr. Romero, the hospitalist physician at 4:10 PM, at this time he believes the patient may benefit from potential consult/transfer with bariatric surgeon team at [facility], due to history of gastric sleeve and acute on chronic pancreatitis. Initially the hospital physician was going to obtain gastric emptying study several days ago prior to discharge, unsure/data deficient history of gastroparesis/gastric outlet obstruction. Thus we will obtain consultation/call [place] bariatric surgeons for further recommendations/potential transfer. I discussed this with the patient at approximately 4:15 PM, patient still having some pain and nausea has improved was able to tolerate p.o. intake, will give 1 mg Dilaudid for pain and give 1 L LR IV. Was notified by nursing staff at approximately 4:55 PM, the patient is complaining of nausea again will give 4 mg IV Zofran. I discussed this patient's case with hospitalist physician at [facility] at approximately 6:40 PM, he is in agreement with the treatment plan/transfer plan, with bariatric surgery consultation in the setting of acute on chronic pancreatitis history of gastric sleeve and intractable nausea vomiting and intractable abdominal pain. I discussed need for transfer with the patient family bedside patient family are in agreement with current treatment plan/transfer plan. Upon reexamination the patient approximately 6:45 PM, patient still complaining of some pain, will give additional 0.5 mg IV Dilaudid for pain. I was notified by nursing staff at approximately 7:42 PM that the patient is complaining of nausea, will obtain EKG and then give patient additional dose of 4 mg of Zofran. I along with the attending physician reviewed the patient's repeat EKG, NSR at 88 bpm. WA intervals, within normal limit, QT intervals, 356/401. Patient still running of some pain at around 8:13 PM, will give 0.25 IV Dilaudid additional dose. Still pending transport to [facility]. Still pending transport to [facility] I discussed this patient's case with Dr. Pak the attending physician at shift change, disposition is pending transport. I was consulted by the MERCEDES, and we discussed the complexity of the problems being addressed. I approve the treatment and management plan for this patient's care in the emergency department, thus performing a substantive portion of the medical decision making. Nicolas Pak MD [place]: Upon my assumption of care patient is stable, she does still complain of pain despite having received multiple doses of Dilaudid and is complaining of nausea despite receiving significant doses of Zofran. ECG was performed per institutional protocol to evaluate patient's QT. I personally interpreted ECG and it demonstrates normal sinus rhythm, rate 87, normal axis, normal WA and QTc, no STEMI. Droperidol was administered. Patient is tolerating this well. EMS is available for transportation at this time. She was reassessed immediately prior to being transferred, airway is intact, GCS 15, vital stable. Transferred in stable condition. Procedures <Nicolas Pak MD - Last Filed: 04/25/25 22:31> Limited Ultrasound Indication:: Indication:: Ultrasound-guided line placement Indication: - Difficult IV access, numerous unsuccessful pokes Identified structures: - Cephalic vein, basilic vein Location/access site: - Cephalic vein Vessel patency: - Patent Direct visualization? - Yes Impression: Successful 18g catheter in left upper extremity cephalic vein Images were not saved to permanent archive The study was technically adequate Critical Care <ABHISHEK Ellington - Last Filed: 04/25/25 22:08> Critical Care Time Critical Care Time: No
[2025-04-25 14:27] LABS: Microscopic, Urine URINE MICROSCOPIC (MICROSCOPIC)
[2025-04-25] MEDS: ONDANSETRON 4MG/2ML VIAL 4 MG IV ×4 (14:38→19:55)
[2025-04-25 14:39] LABS: Color,Urine YELLOW (Yellow); Glucose,Urine (UA) Negative (Negative); Ketones,Urine TRACE (Negative); Leukocyte Esterase,Urine Negative (Negative); PH,Urine 6.5 (5.0-8.5); Protein,Urine Negative (Negative); Specific Gravity, Urine 1.025 (1.005-1.030); Urobilinogen,Urine 1.0 EU/dl (0.2)
[2025-04-25] MEDS: HYDROMORPHONE 2MG/ML SYRINGE 0.5 MG IV ×3 (14:39→18:46)
[2025-04-25 14:43] LABS: Hematocrit 33.9 % (37.0-47.0); Hemoglobin 10.9 g/dL (12.2-16.2); Immature Granulocytes % 0.2 %; Mean Corpuscular HGB Conc 32.2 g/dL (31.8-35.4); Mean Corpuscular Hemoglobin 30.5 pg (27.0-31.2); Mean Corpuscular Volume 95.0 fl (81-99); Nucleated Red Blood Cells % 0 %; Platelet Count 208 K/mm3 (142-424); Red Blood Count 3.57 M/mm3 (4.20-5.40); Red Cell Distribution Width-SD 45.5 fL; White Blood Count 4.2 K/mm3 (4.8-10.8)
[2025-04-25 14:46] LABS: Bilirubin,Urine 1+ (Negative)
[2025-04-25 14:50] LABS: Calcium Oxalate Crystals,Urine Trace /lpf
--- NOTE | 2025-04-25 14:55 | PC.NURSE ---
I rounded on the pt. She states the dose of hydromorphone helped initially but the pain is back. no other complaints, no needs voiced. call villatoro in reach. Ruslan WEISS notified and gave a verbal for pain medication.
[2025-04-25 14:56] LABS: Amphetamine/Metha Screen,Urine Negative ng/ml (<1000); Barbiturates Screen,Urine Positive ng/ml (<200); Benzodiazepines Screen,Urine Negative ng/ml (<200); Methadone Screen,Urine Negative ng/ml (<300); Opiate Screen,Urine Positive ng/ml (<300); Phencyclidine Screen,Urine Negative ng/ml (<25)
[2025-04-25 15:00] LABS: Albumin Level 4.6 g/dl (3.5-5.0); Chloride 108 mmol/L (98-107); Potassium 3.3 mmoL/L (3.5-5.1); Sodium 144 mmol/L (136-145)
[2025-04-25 15:03] LABS: Alanine Aminotransferase 18 U/L (12-78); Albumin/Globulin Ratio 1.6 (1.1-1.8); Alkaline Phosphatase 78 U/L (38-126); Anion Gap 14.3 mEq/L (5-15); Aspartate Amino Transferase 23 U/L (14-36); Bilirubin,Total 0.4 mg/dl (0.2-1.3); Blood Urea Nitrogen 15 mg/dl (7-17); Carbon Dioxide 25 mmol/L (22.0-30.0); Creatinine Clearance Estimated 162 mL/min (50-200); Creatinine,Serum 0.60 mg/dl (0.52-1.04); Estimated Glomerular Filt Rate 108 ml/min (>60); GFR (African American) 130 ML/MIN (>60); Globulin 2.8 g/dL (1.3-3.2); Total Protein,Serum 7.4 g/dl (6.3-8.2)
[2025-04-25 15:04] LABS: Calcium 8.9 mg/dl (8.4-10.2); Glucose 78 mg/dl (74-100)
[2025-04-25 15:35] LABS: Lipase 60 U/L (23-300); Magnesium 2.1 mg/dl (1.6-2.3)
[2025-04-25] MEDS: POTASSIUM CHLORIDE 20MEQ TAB 40 MEQ PO (15:38)
[2025-04-25 16:13] LABS: Hepatitis C Ab Qual. W/ RFX NEGATIVE (Negative)
[2025-04-25] MEDS: HYDROMORPHONE 2MG/ML SYRINGE 1 MG IV (16:58)
[2025-04-25] MEDS: LACTATED RINGERS 1000ML 1,000 ML 999 ML IV (16:58)
--- NOTE | 2025-04-25 18:15 | PC.NURSE ---
Called the following number at [facility] to see the status of getting the patient transferred [phone]. They instructed me to call the housekeeper head number which is [phone], i attempted to call the Sales And Marketing Coordinator twice and both times i did not get an answer.
--- NOTE | 2025-04-25 18:41 | PC.NURSE ---
ABHISHEK Julian is on the phone with for [facility].
--- NOTE | 2025-04-25 19:04 | PC.NURSE ---
Called report to ZAHIRA García at [facility].
--- NOTE | 2025-04-25 19:44 | ECG_ITS ---
APPROVED REPORT Exam: Resting ECG HR:89 bpm ECG Measurements Heart Rate 89 AXES WI 170 P 40 QRSd 77 QRS 68 QT 348 T 62 QTc 394 Conclusion SINUS RHYTHM POSSIBLE RIGHT VENTRICULAR CONDUCTION DELAY [RSR (QR) IN V1/V2] BORDERLINE ECG UNCONFIRMED REPORT Normal sinus rhythm. No STEMI Electronically signed by : ANTHONY DICKSON, 04/25/2025 22:06:29
[2025-04-25] MEDS: HYDROMORPHONE 2MG/ML SYRINGE 0.25 MG IV (20:29)
[2025-04-25] MEDS: ACETAMINOPHEN 1,000MG/100ML VIAL 1000 MG IV (22:33)
[2025-04-25] MEDS: droPERidol 5MG/2ML VIAL 2.5 MG IV (23:15)
--- NOTE | 2025-04-25 23:30 | ECG_ITS ---
APPROVED REPORT Exam: Resting ECG HR:87 bpm ECG Measurements Heart Rate 87 AXES MS 157 P 47 QRSd 81 QRS 68 QT 361 T 57 QTc 405 Conclusion SINUS RHYTHM POSSIBLE RIGHT VENTRICULAR CONDUCTION DELAY [RSR (QR) IN V1/V2] No STEMI Electronically signed by : KARLOS LOVING, 04/27/2025 07:49:27
== END 2025-04-25 23:40 | disposition other institution (70) ==
PROVIDERS: Physician Assistant; Emergency Provider Student in an Organized Health Care Education/Training Program
DX: R10.13 Epigastric pain (principal); K86.1 Other chronic pancreatitis; R11.2 Nausea with vomiting, unspecified; Z98.84 Bariatric surgery status
CPT/HCPCS: 36415; 74176; 76942; 80053; 80307; 80320; 81001; 83605; 83690; 83735; 85025; 86803; 87389; 93005; 96361; 96374; 96375; 96376; 99285; J0131; J1171; J1790; J2405; J7120

== ENCOUNTER 2025-05-18 16:17 | Emergency (ER) | payer OTHER, SELFPAY ==
--- OUTSIDE RECORDS SUMMARY | 2025-01-03 04:00 | XMS_ITS ---
Author Organization [facility] Address [address] [phone] Care Team Providers Care Commercial Credit Specialist Name Role Phone Migration, Provider Unavailable Unavailable REASON FOR VISIT EMR-Bryon Encounters Encounter Location Date Provider Diagnosis [facility] [address] [phone] 01/03/2025 Provider Migration Plan Of Treatment No Information Progress Notes * CHETNA ALEMANDOB: 9 (44 yo F)Acc No.[id number]:01/03/2025 Patient: Katherine RENACHETNA :1980 A ge:44 Y S ex:Female Address:[facility] [place], [address] Subjective: * Chief Complaints: * E MR-Bryon * * Date:
--- OUTSIDE RECORDS SUMMARY | 2025-01-04 04:00 | XMS_ITS ---
Author Organization [facility] Address [address] [phone] Care Team Providers Care Coverer Name Role Phone Migration, Provider Unavailable Unavailable REASON FOR VISIT EMR-Bryon Encounters Encounter Location Date Provider Diagnosis [facility] [address] [id number] 01/04/2025 Provider Migration Plan Of Treatment No Information Progress Notes * CHETNA ALEMANDOB: 9 (44 yo F)Acc No.[id number]:01/04/2025 Patient: Katherine RENACHETNA :1980 A ge:44 Y S ex:Female Address:[facility] [place], [address] Subjective: * Chief Complaints: * E MR-Bryon * * Date:
--- OUTSIDE RECORDS SUMMARY | 2025-02-02 04:00 | XMS_ITS ---
Author Organization [facility] Address [address] [place], [place] [phone] Care Team Providers Care Library Clerk Talking Books Name Role Phone [facility] Primary [facility] [place] Unavailable Social History Sex Assigned At : Social History Observation Description Sex Assigned At Female Encounters Encounter Location Date Provider Diagnosis [facility] [address] [place] [phone] 02/02/2025 [facility] Plan Of Treatment No Information Progress Notes * CHETNA ALEMANDOB: 9 (44 yo F)Acc No.[id number]:02/02/2025 Patient: CHETNA SOLANO Provider: Jyoti [facility] :1980 A ge:44 Y S ex:Female Date:02/02/2025 Address:[address], [id number] Subjective: * Chief Complaints: * * Medical History: Objective: * Vitals: Assessment: Plan: * Treatment: * Images: * Electronic signature of [facility] on 05/18/2025 at 02:30 PM [facility] Sign off status: Pending * Provider: Jyoti FALCON Date: 0 02/02/2025 Generated for Printi ng/Faxing/eTransmitting on: 1 02:30 PM [facility]
[2025-05-18 16:19] VITALS: BP 160/111; PULSE 122; RESP 16; TEMP 37; O2SAT 96; BMI 30.7
--- OUTSIDE RECORDS SUMMARY | 2025-05-18 16:29 | XMS_ITS | Clinical Summary ---
Author Organization Healthcare Address 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
--- OUTSIDE RECORDS SUMMARY | 2025-05-18 16:29 | XMS_ITS | Data Portability ---
Author Organization [place] - Dr. Tomi Quezada, [facility] Address [address], [address] [place] [address] Care Team Providers Care Benzene Still Utility Operator Name Role Phone [facility] [place] Pain Management Assessment Encounter Date Assessment Date [...] healthy living. Further treatment per orders below. Not available 03/04/2025 16:47:59 04/03/2025 04/03/2025 Patient presented for medication refill. Patient tolerating medication well at current dose without adverse effects. Refilled as below. Discussed plan with patient, who expressed understanding . Follow up as noted below. [email or web address] Not available 04/03/2025 17:26:16 Plan of Treatment Reminders Order Date Submit Date Provider Last Modified By Organization Details Last Modified Time Details Appointments None recorded. Lab fecal occult blood, immunoass ay, stool 2024 025 ANTHONY [facility], [address] , [address], [place], [address], 12/23/202 5 04:17:28 fecal occult blood, immunoass ay, stool 2024 SIMLA [facility], [address], [address], [place], [address], 5 04:19:14 CBC w/ auto diff 2024 SIMLA [facility], [address], [address], [place], [address], 5 04:17:24 Referral gastroent erologist referral 2024 [email or web address] Not available 16:01:31 gastroent erologist referral 2024 ANTHONY Not available 04:14:24 Procedures None recorded. Surgeries None recorded. Imaging MAMMO, screening , bilateral 2024 [email or web address], [address], [address], [place], [address], 5 15:01:15 MAMMO, screening , bilateral 2024 SIMLA [facility], [address], [address], [place], [address], 5 04:02:40 CT, maxillofa cial, w/ contrast - stat 2024 [facility], [address], [place], [address], 5 04:17:25 Medication Orders fluticaso ne propionat e 50 mcg/actua tion nasal spray,heriberto pension 2024 [facility][id number], [address] [place], [address], 5 14:27:21 amoxicill in 875 mg-potass ium clavulana te 125 mg tablet 2024 [id number], [address] [place] [address], [address], 14:27:21 promethaz ine 25 mg tablet 2024 [id number], [address] [place], [address], 5 17:27:50 tizanidin e 4 mg tablet 2024 [id number], [address] [place], [address], 17:27:50 tizanidin e 2 mg tablet 2024 [facility], [address] [place], [address], 17:27:50 scopolami ne 1 mg over 3 days transderm al patch 2024 [facility], [address] [place], [address], 17:27:50 promethaz ine 25 mg tablet 2024 [facility], [address] [place], [address], 17:10:00 amlodipin e 5 mg tablet 2024 [id number], [address] [place], [address], 16:57:37 losartan 100 mg tablet 2024 [facility], [address] [place], [address], 17:10:35 tizanidin e 4 mg tablet 2024 025 [id number], [address] [place], [address], 15:50:11 tizanidin e 2 mg tablet 2024 025 [facility] #05281, [address] [place], [address], 15:50:10 promethaz ine 25 mg tablet 2024 025 [id number], [address] [place], [address], 15:50:10 Patient TargetsNo targets recorded. 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 for malignant neoplasm of colon Referring Physician: [facility], Encounter Date: 05/05/2025 Results Created Date Observation Date Name Description Value Unit Range Abnormal Flag Note LastModifiedBy Organization Detail LastModifiedTime 04/03/2004/03/2025 indiv idual couns eling * patient counseled Not Available Prim[facility] [address], [facility] [address], [place], [address], 04/02/2025 18:05:08 05/05/20 05/05/2025 indiv idual couns eling * patient counseled Not Available [facility] [place] [address] [facility] [address], [place], [address], 05/05/2025 13:57:40 Result Notes None recorded. Problems Name Problem SNOMED Code Status Onset Date Resolution Date Notes Provider Name and Address Organization Details Recorded Time Acute pancreatitis 329721453 Active [place]AS [place] - Dr. Tomi Quezada 5 16:24:31 Restless legs syndrome 86634368 Active [place] - Dr. Tomi Quezada 5 16:24:31 Migraine 49008969 Active [place] - Dr. Tomi Quezada 5 16:24:31 Simple obesity 227770175 Active [place] - Dr. Tomi Quezada 5 16:24:31 Chronic pancreatitis 700067334 Active 2022 LOURDES COLEMAN NP [address], [place], [address], [place] - Dr. Tomi Quezada 5 15:56:21 Mixed hyperlipidemia 617918067 Active 2022 DAVID Terrell - Dr. Tomi Quezada 3 16:50:12 Vitamin B12 deficiency (non anemic) 07572042 Active 2022 DAVID Terrell - Dr. Tomi Quezada 3 16:50:13 Conjunctivitis 7558742 Active 2022 Alexx Garcia MD [address], [place], [address], [place] - Dr. Tomi Quezada 3 13:12:09 Chronic nonspecific abdominal pain 825482358 Active 2022 LOURDES COLEMAN NP [address], [place], [address], [place] - Dr. Tomi Quezada 5 16:51:48 Opioid dependence 87842121 Active 2022 Tomi Quezada MD [address], [place], [address], [place] - Dr. Tomi Quezada 3 21:55:27 Benzodiazepine dependence 106594081 Active 2022 Tomi Quezada MD [address], [place], [address], [place] - Dr. Tomi Quezada 3 21:55:46 Low back pain 900402759 Active 2023 LOURDES COLEMAN [employer] [address], [place], [address], [place] - Dr. Tomi Quezada 15:56:21 Tachycardia 6729701 Active 2023 Maritza Mcpherson NP [address], [place], [address], [place] - Dr. Tomi Quezada 4 17:47:04 Seizure disorder 876068691 Active 2023 Maritza Mcpherson NP [address], [place], [address], [place] - Dr. Tomi Quezada 4 11:16:55 Headache 30211874 Active 2023 Maritza cMpherson NP [address], [place], [address], [place] - Dr. Tomi Quezada 4 11:17:33 Essential hypertension 55423979 Active 2023 LOURDES COLEMAN [employer] [address], [place], [address], [place] - Dr. Tomi Quezada 5 16:50:08 Tooth infection 461753659 Active 2024 LOURDES COLEMAN NP [address], [place], [address], [place] - Dr. Tomi Quezada 5 15:56:21 Nausea and vomiting, unspecified vomiting type 38716302 Active 2024 LOURDES COLEMAN [employer] [address], [place], [address], [place] - Dr. Tomi Quezada 5 16:41:02 Motion sickness 22578662 Active 2024 LOURDES COLEMAN [employer] [address], [place], [address], [place] - Dr. Tomi Quezada 17:26:23 Otalgia of both ears 820795216 Active 2024 LOURDES COLEMAN NP [address], [place], [address], [place] - Dr. Tomi Quezada 14:21:32 Problem Notes None recorded. Procedures Surgical History Date Name Laterality Status Provider Name and Address Organization Details Recorded Time 025 Hospital follow up completed TALITA HERNANDEZ - Dr. Tomi Quezada 11/26/2024 16:30:48 025 Date of Last Colonoscopy completed RUBIA Quezada 01/27/2025 14:30:32 025 Hospital follow up completed Lor HERNANDEZ - Dr. Tomi Quezada 09/15/2024 14:59:32 025 Hospital follow up completed Lor Quezada 08/28/2024 17:11:04 025 Hospital follow up completed PARAS Quezada 06/25/2024 16:23:44 025 Hospital follow up completed oLr Quezada 06/04/2024 14:31:02 024 Hospital follow up [...] Name and Address Organization Details Recorded Time 78714 iodine medicatio n Not available Not available Not available 04/02/2025 5933 RxNorm Not Available [employer] - prod 19:27:15 47471 prednison e medicatio n Not available Not available Not available 04/02/2025 8640 RxNorm Not Available [employer] - prod 19:27:15 34226 codeine medicatio n Not available Not available Not available 05/05/2025 2670 RxNorm Not Available [employer] - prod 13:08:55 6339 shellfish derived food,medi cation Not available Not available Not available 09/26/2022 DAVID Joseph - Dr. Tomi Quezada 14:35:17 8619 loperamid e medicatio n Not available Not available Not available 06/25/2024 6468 RxNorm Other react ions and sever ities : 'Weal (diso rder) '. DAVID Martin - Dr. Tomi Quezada 5 10:07:15 8899 ketorolac medicatio n Not available Not available Not available 08/20/2024 04295 RxNorm VICENTE ESTRELLA null, [place] - Dr. Tomi Quezada 10:07:15 Medications [...] ne 5 mg-acetam inophen 325 mg tablet TAKE ONE TABLET BY MOUTH EVERY 6 HOURS NEEDED FOR mild TO moderate pain MAY CAUSE DROWSINE SS active Not Available Not Available No t Available promethaz ine 25 mg rectal supposito [...] e 1 gram tablet TAKE 1 TABLET ORALLY BEFORE MEALS AND AT BEDTIME FOR 30 DAYS active Not Available Not [...] capsule TAKE 1 CAPSULE BY MOUTH EVERY 12 HOURS FOR 10 DAYS 05/05 completed Not Available Not Available Not Available pantopraz ole 40 mg tablet,de layed release TAKE 1 TABLET BY MOUTH EVERY DAY FOR 56 DAYS 2024 active Not Available Not Available Not Avai lable venlafaxi ne 37.5 mg tablet TAKE 1 TABLET BY MOUTH EVERY DAY IN THE MORNING 03/28 completed Not taking Not Available Not Available Not Available promethaz ine 25 mg tablet TAKE 1 TABLET BY [...] BY INTRANAS AL ROUTE TWICE A DAY active Not Available Not [...] 1 PATCH TRANSDER DREW TWICE A WEEK active Not Available Not Available No t Available morphine 15 mg immediate release tablet TAKE [...] TAKING Not Available Not Available Not Available fluticaso ne propionat e 50 mcg/actua tion nasal spray,heriebrto pension Elida 1 spray every day by intranas al route for 30 days. 2024 active Not Available Not Available Not Avai lable risperido ne 1 mg tablet TAKE 1 TABLET BY MOUTH EVERYDAY AT BEDTIME 03/28 completed Not taking Not Available Not Available Not Available metoclopr amide 10 mg tablet TAKE ONE TABLET BY MOUTH BEFORE MEALS active Not Available Not Available No t Available amoxicill in 875 mg-potass ium clavulana te 125 mg tablet Take 1 tablet every 12 hours by oral route for 7 days. 2024 active Not Available Not Available Not Avai lable buspirone 15 mg tablet TAKE 1 TABLET [...] Not Available Not Available No t Available pregabali n 200 mg capsule TAKE 1 CAPSULE BY MOUTH [...] Not Available Not Available No t Available Creon 36,000 unit-114, 000 unit-180, 000 unit capsule,d elayed release TAKE TWO CAPSULES BY MOUTH BEFORE MEALS active Not Available Not Available No t [...] Not Available Not Available No t Available Relistor 150 mg tablet TAKE 3 TABLETS BY MOUTH ONCE DAILY active Not Available Not Available [...] Updated DateTime 02/02/2025 165.1 cm 30.8 kg/m2 54507.59 g 235/160 mm[Hg] PARTH HERNANDEZ - Dr. Tomi Quezada 02/02/2025 13:39:15 Date Recorded Body height Body mass index (BMI) Body weight Body height Body mass index (BMI) Body weight Provider Name and Address Organization Details Last Updated DateTime 03/04/2025 165.1 cm 30.8 kg/m2 33650.59 g 165.1 cm 30.8 kg/m2 38824.5 9 g BRIANA SANTOS [place] - Dr. Tomi Quezada 15:33:53 Date Recorded Body height Provider Name an d Address Organization Details Last Updated DateTime 04/03/2025 165.1 cm TALITA Quezada 1 06/03/2024 14:41:44 Date Recorded Body height Body mass index (BMI) Body weight Provider Name and Address Organization Details Last Updated DateTime 05/05/2025 165.1 cm 30.8 kg/m2 08941.59 g BRIANA Quezada 05/05/2025 13:59:43 Social History Question Answer Notes LastModified by Organizat ion Details LastModified Time Tobacco Smoking Status Never Smoker DAVID Joseph Dr. 09/26/2022 14:46:38 Do You Have An Advance Directive? No Information not available 09/26/2022 If You Are , What Was Your Level Of Alcohol Consumption Prior To ? None [email or web address] Information not available 09/26/2022 What Is Your Level Of Caffeine Consumption? Occasional [email or web address] Information not available 09/26/2022 What Type Of Diet Are You Following? REGULAR [email or web address] Information not available 09/26/2022 Do You Have A Medical Power Of Supervisor Cell Operation? No Information not available 09/26/2022 How Many Children Do You Have? 1 [email or web address] Information not available 09/26/2022 Do You Have A Patient Advocate? No [email or web address] Information no t available 09/26/2022 What Is Your Relationship Status? [email or web address] Information not available 09/26/2022 Are You Sexually Active? No [email or web address] Information not available 09/26/2022 Do You Have Difficulty Walking Or Climbing Stairs? No [email or web address] Information not available 09/26/2022 Sex: Female Functional Status Question Answer Note LastModified by Organizat ion Details LastModified Time Do you use any illicit or recreational drugs? No [email or web address] Information not available 09/26/2022 Do you or have you ever used any other forms of tobacco or nicotine? No [email or web address] Information not available 09/26/2022 What is your level of alcohol consumption? None [email or web address] Information not available 09/26/2022 Are you currently employed? No [email or web address] Information not available 09/26/2022 What is your status? Not Information no t available 09/26/2022 Are you able to walk independently without assistance or assistive devices? [email or web address] Information not available 09/26/2022 Are you able to care for yourself independently? Yes [email or web address] Information not available 09/26/2022 What is your exercise level? Occasional [email or web address] Information not available 09/26/2022 Mental Status None recorded. Family History Relationship Description Onset Age of this Age Resolved Age Notes LastModified by Organization Details LastModified Time Paternal Grandfather Malignant neoplastic disease [email or web address] Not available 2022 14:46:24 Medical History Condition Response Coronary Artery Disease N Other N High Blood Pressure N Hyperthyroidism N Emphysema N Ulcers/heartburn/reflux N Anxiety Disorder N Arthritis N Cancer N Stroke N Shortness of breath N Fibromyalgia N Kidney Disease N Heart Problems N Fainting Spells/Dizziness/Vertigo N STD N Herpes N Angioplasty or heart catheter N Tuberculosis N Heart attack N Blocked Artery N Asthma N Diverticulitis or Colitis N Hepatitis N Pulmonary Embolism N Thyroid Disease N Steroid Use N Glaucoma N Hypothyroidism N Pacemaker N Blood Disease N Chest [...] objection Alexx Garcia MD [address], [place], [address], [place] - Dr. Tomi Quezada 10/03/2023 18:30:12 Influenza, MDCK, quadrivalent, preservative 10/03/19 24 cancelled patient objection Alexx Garcia MD [address], [place], [address], [place] - Dr. Tomi Quezada 10/03/2023 18:30:12 COVID-19, mRNA, LNP-S, PF, 30 mcg/0.3 mL dose 06/21/19 21 completed KEYLA TAPIA null, [place] - Dr. Tomi Quezada 09/26/2022 14:36:31 COVID-19, mRNA, LNP-S, PF, 30 mcg/0.3 mL dose 07/20/19 21 completed KEYLA TAPIA null, [place] - Dr. Tomi Quezada 09/26/2022 14:36:35 Tdap 05/21/19 19 completed KEYLADAYSI [place] - Dr. Tomi Quezada 09/26/2022 14:49:53 Influenza, MDCK, trivalent, preservative 01/24/20 24 cancelled patient objection Maritza Mcpherson NP [address], [place], [address], [place] - Dr. Tomi Quezada 01/24/2024 17:42:28 Influenza, MDCK, trivalent, preservative 02/07/20 24 cancelled patient objection Maritza Mcpherson NP [address], [place], [address], [place] - Dr. Tomi Quezada 02/08/2024 11:15:01 Influenza, MDCK, trivalent, preservative 03/21/20 24 cancelled patient objection CHASITY WEISS [address], [place], [address], [place] - Dr. Tomi Quezada 03/21/2024 17:11:37 RSV, bivalent, protein subunit RSVpreF, diluent reconstituted, 0.5 mL, PF 03/03/20 completed DAVID Coreas - Dr. Tomi Quezada 04/03/2025 14:43:18 influenza nasal, unspecified formulation 06/06/19 completed TALITA lutz [place] - Dr. Tomi Quezada 04/03/2025 14:45:37 Influenza, MDCK, trivalent, PF 08/21/19 25 cancelled patient objection CHASITY WEISS [address], [place], [address], [place] - Dr. Tomi Quezada 08/20/2024 10:44:31 Influenza, MDCK, trivalent, preservative 11/27/19 25 cancelled patient objection Carlin Patterson NP [address], [place], [address], [place] - Dr. Tomi Quezada 11/26/2024 17:55:55 COVID-19, mRNA, LNP-S, PF, aldo-sucrose, 30 mcg/0.3 mL 11/27/19 25 cancelled patient objection Carlin Patterson NP [address], [place], [address], [place] - Dr. Tomi Quezada 11/26/2024 17:55:55 Past Encounters Encounter ID Performer Location Encounter Start Date Encounter Closed Date Diagnosis/Indication Diagnosis SNOMED-CT Code Diagnosis ICD10 Code Diagnosis IMO Codes Diagnosis Note [id number] Alexx Garcia MD [facility] [address], [address] [place] [address] 09/26/2022 13:49:10 09/26/2022 15:29:16 Body mass index 30+ - obesity 400093433 Z68.33 33.8 Adult heal th examination 602931836 Z00.01 Screening for cardiovascular system disease 836374140 Z13.6 Depression screening 171 790505 Z13.31 Hepatitis C screening 41 6564312 Z11.59 Active immunization 3387 9002 Z23 up to date Obesity 477211676 E66.09 Z71.3 Z71.82 Diet should be balanced including plenty of vegetables , proteins and healthy fats such as olive oil, avocado, nuts. Limit calories to the minimum from refined carbohydra jackie and eliminate processed foods. Exercise as tolerated, goal of total weekly 150min to include cardio-vas cular exercise and resistance -training exercise. Low back pain 844350787 M54.50 Chronic pancreatitis 235 090749 K86.1 follows pain management and GI Hyperlipid emia screening 677975597 Z13.220 Screening for disorder 006195326 Z13.29 Screening for endocrine disorder, including Hypothyroi dism. Vitamin D deficiency 347 33452 E55.9 Screening for Vitamin D deficiency ; optimal level 50 - 100. Vitamin B1 2 deficiency (non anemic) 09797790 E53.8 Screening for B12 deficiency ; optimal level > 500. [id number] Alexx Garcia MD [facility] [address] [address] 11/27/2022 13:22:20 11/27/2022 15:06:09 Depression screening 685565188 Z13.31 Hepatitis C screening 41 4471997 Z11.59 Body mass index 30+ - obesity 822266403 Z68.33 33.5 Chronic pancreatitis 235 785637 K86.1 Elevated blood-pressure reading without diagnosis of hypertension 267290236 R03.0 Blood pressure has been elevated in clinical setting. No history of HTN. Lifestyle measures recommende d, DASH diet, exercise program. Recommende d to monitor blood pressure outside the clinic x 2 week and inform us of the results. Nonpuerper al abscess of right breast 8315524100 0843230 N61.1 will treat with abx and send for US Screening mammography of bilateral breasts 2586696303 37976 Z12.31 Low back pain 263313537 M54.50 insurance wont cover 6mg tablet of tizanidine , will send separate 4mg and 6 mg [id number] Tomi Quezada MD [facility] [address] [address] 01/19/2023 15:14:12 01/19/2023 17:16:54 Chronic pancreatitis 095683881 K86.1 refer to pain managment Influenza vaccination declined 649955295 Z28.21 Depression screening 171 320270 Z13.31 Vitamin D deficiency 347 86344 E55.9 Patient had low vitamin D levels.Cou nseled about mild sun exposure being aware of skin cancer risk.Recom mended resistance training exercises for osteoporos is prevention .Prescribe d vitamin D 3 50,000 units weekly.Roberto l monitor vitamin D levels at 6 - 12 months. Vitamin B1 2 deficiency (non anemic) 91686863 E53.8 Low vitamin B12,goal > 500Recomme nded b12 inj protocol of once per week # 4Will retest B12 level during annual exam Mixed hyperlipidemia 267 187894 E78.2 Lifestyle modificati ons discussed including weight loss, aerobic exercise at least 30 min/day at least 5 days per week, and a diet rich in fruit and vegetables . Goal LDL: <100mg/dL, <70mg/dL. Will continue to follow lipid panel q6-12 months. Low back pain 365639575 M54.50 [id number] Alexx Garcia MD [facility] [address] [address] 01/24/2023 12:16:48 01/24/2023 13:15:45 Chronic pancreatitis 731695716 K86.1 referred to pain management and GIGiven short term - 7 days of apap/codei ne;Patient verbalizes understand ing that she has to establish care with pain management and GI, since we do not do chronic pain.State s having issues with her insurance to find coverage. Depression screening 171 222701 Z13.31 Conjunctivitis 6389952 H 10.9 [id number] Alexx Garcia MD [facility] [address] [address] 02/01/2023 13:36:12 02/01/2023 16:17:58 Chronic pancreatitis 019280332 K86.1 eferred to pain management and GIGiven short term - 7 days of apap/codei ne;Patient verbalizes understand ing that she has to establish care with pain management and GI, since we do not do chronic pain.State s having issues with her insurance to find coverage.h as appt Nov w/Dr Martinez, will see if appt can be moved earlier Depression screening 171 211169 Z13.31 Influenza vaccination declined 077110577 Z28.21 [id number] Alexx Garcia MD [facility] [address] [address] 02/19/2023 12:20:17 02/19/2023 13:59:52 Chronic pancreatitis 327323634 K86.1 referred to pain management and GIPatient [...] if having pain 02/27. Influenza vaccination declined 142605262 Z28.21 Depression screening 171 755956 Z13.31 Hepatitis C screening 41 9416396 Z11.59 [id number] Tomi Quezada MD [facility] [address] [address] 02/20/2023 13:53:51 02/20/2023 15:07:59 Depression screening 821306406 Z13.31 Influenza vaccination declined 377862693 Z28.21 Chronic pancreatitis 235 799847 K86.1 pending [place] see pain [place] refer to GI [facility]en [facility] 801849642 Z76.89 went to er visit [facility] 02/19/2023 discharged same day for chronic pancreatis pending to see pain [place] [id number] Tomi Quezada MD [facility] [address] [address] 02/26/2023 14:48:47 02/27/2023 12:31:37 Hospital inpatient stay within past 30 days 2372277358 106 Z76.89 Depression screening 171 165291 Z13.31 Influenza vaccination declined 143431368 Z28.21 Chronic no nspecific abdominal pain 913759889 R10.9 pt has been on chronic opiods [...] her pain is identified . Opioid dependence 431760 00 F11.20 see above Benzodiaze pine dependence 456684208 F13.20 see above [id number] Alexx Garcia MD [facility] [address] [address] 06/06/2023 15:26:57 06/06/2023 16:23:34 Influenza vaccination declined 806799301 Z28.21 Depression screening 171 Z13.31 Hepatitis C screening 41 1221056 Z11.59 Diarrhea 05186178 R19.7 Advised patient to seek emergency treatment [...] this is the case. Acute gastroenteritis 69 458369 K52.9 ED warnings reviewed with patient [id number] Alexx Garcia MD [facility] [address] [address] 08/23/2023 13:17:41 08/23/2023 14:21:08 Depression screening 929026494 Z13.31 Influenza vaccination declined 413570441 Z28.21 Essential hypertension 95200163 I10 Adult heal th examination 890566020 Z00.01 Hyperlipid emia screening 500312209 Z13.220 Screening for cardiovascular system disease 844104432 Z13.6 Screening for disorder 065420671 Z13.9 Screening for endocrine disorder, including hypogonadi sm. Hepatitis C screening 41 3112517 Z11.59 Vitamin D deficiency 347 14466 E55.9 Screening for vit D deficiency , optimal level between 50 - 100 Vitamin B1 2 deficiency (non anemic) 41941051 E53.8 Screening for vit B12 deficiency ; optimal level > 500 Screening for malignant neoplasm of cervix 236616453 Z12.4 Chronic pancreatitis 235 117031 K86.1 Referred to pain management and GI Opioid dependence 495138 00 F11.20 follows pain management [id number] Alexx Garcia MD [facility] [address] [address] 10/03/2023 15:42:50 10/03/2023 18:34:27 Screening for malignant neoplasm of colon 374478737 Z12.11 Active or passive immunization 302168279 Z23 Depression screening 171 081337 Z13.31 Renewal of prescription 830072141 Z76.0 Opioid dependence 061421 00 F11.20 follows pain management Benzodiaze pine dependence 001788010 F13.20 Influenza vaccination declined 605063192 Z28.21 Body mass index 30+ - obesity 377954908 Z68.33 33.5 Mixed hyperlipidemia 267 100367 E78.2 Chronic pancreatitis 235 541219 K86.1 Referred to pain management and GI Chronic no nspecific abdominal pain 606574496 R10.9 Low back pain 851142840 M54.50 follows pain management , Dr Christy [id number] Alexx Garcia MD [facility] [address] [address] 10/17/2023 14:43:36 10/17/2023 15:34:51 Body mass index 30+ - obesity 653665555 Z68.33 33.6 Screening for malignant neoplasm of colon 538401248 Z12.11 Mixed hyperlipidemia 267 432922 E78.2 emphaiszed low fat/high fiber diet and regular exercise routine. monitor lipids Vitamin B1 2 deficiency (non anemic) 71378466 E53.8 recommend otc vitamin b12 100mg once daily Vitamin D deficiency 347 49612 E55.9 refill vitamin d supplement Essential hypertension 04225559 I10 increase losartan 100mg once daily; emphasized low sodium diet and regular exercise routine Screening mammography 24 405980 Z12.31 [id number] Alexx Garcia MD [facility] [address] [address] 11/07/2023 14:21:18 11/07/2023 16:26:07 Mixed hyperlipidemia 009872554 E78.2 emphasized low fat/high fiber diet and regular exercise routine. monitor lipids Transition of care 14361 19802 105 Z75.8 see htn plan Obesity 637425308 E66.09 Z71.3 Z71.82 Diet should be balanced including plenty of vegetables , proteins and healthy fats such as olive oil, avocado, nuts. Limit calories to the minimum from refined carbohydra jackie and eliminate processed foods. Exercise as tolerated, goal of total weekly 150min to include cardio-vas cular exercise and resistance -training exercise. Body mass index 30+ - obesity 634848775 Z68.33 32.6 Depression screening 171 388245 Z13.31 Screening for malignant neoplasm of colon 666516478 Z12.11 Essential hypertension 07782635 I10 continue losartan. add amlodipine 5mg once daily. emphasized low sodium diet and regular exercise routine. f/u 2 weeks Vitamin D deficiency 347 16096 E55.9 continue vitamin d supplement Chronic pancreatitis 235 334853 K86.1 has appt with gi 11/2023 Vitamin B1 2 deficiency (non anemic) 53649778 E53.8 recommend otc vitamin b12 100mg once daily Lesion of oral mucosa 10 04088319 685985 K13.70 h/o oral thrush; treat empiricall y with nystatin [id number] Alexx Garcia MD [facility] [address] [address] 01/01/2024 17:32:07 01/01/2024 18:59:38 Body mass index 30+ - obesity 511447685 Z68.32 32.6 Depression screening 171 245919 Z13.31 Screening for malignant neoplasm of colon 370312247 Z12.11 Allergy to food 30917677 1 T78.1XXA recommend to avoid seafoodsen d refill on epinephrin e for emergency usage Chronic pancreatitis 235 690130 K86.1 referred to pain management and GIPatient [...] go to ER if having pain 02/27. [id number] Alexx Garcia MD [facility] [address] [address] 01/24/2024 12:55:13 01/24/2024 14:36:30 Essential hypertension 85565408 I10 also on Losartan 100mg Depression screening 171 206358 Z13.31 Body mass index 30+ - obesity 429524760 Z68.32 Patient counseled about healthy diet, eating plan should include lots of vegetables , healthy fats including olive oil, avocado; avoiding refined sugars and processed foods/ trans fats. Transition of care 86404 52577 105 Z75.8 Obesity 375970864 E66.09 Z71.3 Z71.82 Diet should be balanced including plenty of vegetables , proteins and healthy fats such as olive oil, avocado, nuts. Limit calories to the minimum from refined carbohydra jackie and eliminate processed foods. Exercise as tolerated, goal of total weekly 150min to include cardio-vas cular exercise and resistance -training exercise. Renewal of prescription 508581427 Z76.0 Influenza vaccination declined 272023824 Z28.21 Screening for malignant neoplasm of colon 454313052 Z12.11 Tachycardia 3201318 R00. 0 Alarm ER warnings for increased hr, palpitatio ns, chest pain, or dizziness [id number] Alexx Garcia MD [facility] [address] [address] 01/31/2024 14:49:15 01/31/2024 15:25:06 Mixed hyperlipidemia 263387482 E78.2 discussed diet and lifestyle modificati ons; more fish, chicken fresh fruits and vegetables ; avoid high animal fat foods, processed foods and trnasfats; exercise daily; maintain healthy weight Depression screening 171 Z13.31 Essential hypertension 24669767 I10 also on Losartan 100mg and amlodipine 5mg- ED warnings discussed if no improvemen t and worsening headache; saw cardiology and is wearing halter monitor [id number] Alexx Garcia MD [facility] [address] [address] 02/07/2024 14:39:55 02/07/2024 16:26:14 Renewal of prescription 746818574 Z76.0 Colonoscopy declined 632 0904906 26137 Z53.20 Influenza vaccination declined 663245736 Z28.21 Seizure disorder 4382666 02 G40.909 Low back pain 651328634 M54.50 Headache 26826557 R51.9 neurology referral given Essential hypertension 98010490 I10 also on Losartan 100mg and amlodipine 5mg, Metoprolol 50mg- now well controlled after increasing metoprolol to 50mg; ED warnings discussed if no improvemen t and worsening headache; saw cardiology and is wearing halter monitor [id number] Alexx Garcia MD [facility] [address] [address] 03/21/2024 16:39:36 03/21/2024 17:15:45 Influenza vaccination declined 012349532 Z28.21 Depression screening 171 Z13.31 Body mass index 30+ - obesity 608178608 Z68.33 32.1 Acute conjunctivitis 537 79648 H10.31 start vigamox as directed. rtc if no improve, new or worsening symptoms [id number] Alexx Garcia MD [facility] [address] [address] 03/28/2024 14:50:31 03/28/2024 16:36:05 Screening mammography 15224350 Z12.31 DONE 12/19/2023 Screening for cardiovascular system disease 960083870 Z13.6 Screening for malignant neoplasm of colon 204045087 Z12.11 NEVER DONE Hepatitis C screening 41 7049091 Z11.59 Depression screening 171 Z13.31 Screening for malignant neoplasm of cervix 340898780 Z12.4 05/21/2015 Body mass index 30+ - obesity 141772236 Z68.32 32.1 Abdominal pain 19140018 R10.9 Chronic pancreatitis 235 712935 K86.1 Following pain mgmt but having a flare up pain is 02/27will give short supply of hydrocodon e till sunday and needs to make appt ZOILA with pain specialist as today he is out of officepati ent had 4 narcan sprays gave ER warnings and when to use spray Essential hypertension 80981490 I10 BP Uncontroll ed, patient in pain which can affect bppt also instructed by cardiologi st to take extra amlodipine for bp control [id number] Alexx Garcia MD [facility] [address], [address] [address] 04/10/2024 16:14:50 04/10/2024 16:43:42 Screening mammography 49303934 Z12.31 12/19/2023 Hepatitis C screening 41 5290882 Z11.59 06/06/2023 Depression screening 171 616166 Z13.31 Active or passive immunization 960676975 Z23 Screening for malignant neoplasm of cervix 431763781 Z12.4 2015 Body mass index 30+ - obesity 239859876 Z68.33 32.1 Essential hypertension 28055032 I10 continue losartan. add amlodipine 5mg once daily and increase to twice daily. emphasized low sodium diet and regular exercise routine. f/u 5 days. ER warnings given--pat ient voiced understand ing Mixed hyperlipidemia 267 892553 E78.2 emphasized low fat/high fiber diet and regular exercise routine. monitor lipids Chronic pain 46357297 G8 9.29 improved pain; bp still elevated. following pain management [id number] Alexx Garcia MD [facility] [address], [facility] [place] [address] [place] [address] 04/25/2024 13:53:18 04/25/2024 14:28:59 Mixed hyperlipidemia 069863243 E78.2 emphasized low fat/high fiber diet and regular exercise routine. monitor lipids Screening mammography 24 667265 Z12.31 12/19/2023 Screening for malignant neoplasm of colon 815343832 Z12.11 Hepatitis C screening 41 6755631 Z11.59 06/06/2023 Depression screening 171 711409 Z13.31 Screening for malignant neoplasm of cervix 557791527 Z12.4 2016 Essential hypertension 88933441 I10 continue current medication s. add hctz 12.5mg once daily. continue home monitoring [id number] Alexx Garcia MD [facility] [address] [address] 05/08/2024 12:43:15 05/08/2024 13:11:09 Screening mammography 58363496 Z12.31 12/19/2023 Hepatitis C screening 41 9290902 Z11.59 06/06/2023 Depression screening 171 083415 Z13.31 Screening for malignant neoplasm of cervix 575392499 Z12.4 2016; total hysterecto my Renewal of prescription 912712553 Z76.0 refills sen Essential hypertension 32471948 I10 continue current medication s. add hctz 12.5mg once daily. restart clonidine 0.1mg once daily. following cardiology Chronic pancreatitis 235 851141 K86.1 has appt with gi 11/2023 Mixed hyperlipidemia 267 956864 E78.2 emphasized low fat/high fiber diet and regular exercise routine. monitor lipids Vitamin D deficiency 347 49971 E55.9 continue vitamin d supplement Syncope 292025957 R55 re-refer to neurology; following EP as well [id number] Alexx Garcia MD [facility] [address] [address] 06/04/2024 14:08:18 06/04/2024 15:46:41 Hospital inpatient stay within past 30 days 5418695633 106 Z76.89 see chronic pancreatit is plan Screening mammography 24 298515 Z12.31 12/19/2023 Hepatitis C screening 41 2390846 Z11.59 06/06/2023 Depression screening 171 967218 Z13.31 Screening for malignant neoplasm of cervix 789616138 Z12.4 2016; total hysterecto my Chronic pancreatitis 235 919737 K86.1 continue current pain control. f/u with pain specialist tomorrow. refer to GI. continue hospital discharge medication s given Essential hypertension 04825531 I10 will restart losartan. continue home monitoring of bp . low sodium diet emphasized . [id number] Alexx Garica MD [facility] [address] [address] 06/25/2024 15:49:32 06/25/2024 16:18:36 Chronic pancreatitis 377355228 K86.1 continue current pain control. f/u with pain specialist tomorrow. refer to GI. continue hospital discharge medication s given Hospital i npatient stay within past 30 days 8262365464 106 Z76.89 see chronic pancreatit is plan Screening mammography 24 952113 Z12.31 12/19/2023 Screening for malignant neoplasm of colon 568748430 Z12.11 Hepatitis C screening 41 0865184 Z11.59 06/06/2023 Depression screening 171 206586 Z13.31 Active or passive immunization 941991525 Z23 Screening for malignant neoplasm of cervix 501676888 Z12.4 2016; total hysterecto my [id number] Alexx Garcia MD [facility] [address] [address] 07/09/2024 16:23:18 07/09/2024 17:04:39 Active or passive immunization 457404624 Z23 Essential hypertension 59373066 I10 refused to restart any medication s at this time or restart remote bp monitoring system. Will f/u with cardiology Body mass index 30+ - obesity 440031583 Z68.31 31.3 Chronic pancreatitis 235 202550 K86.1 continue current pain control. f/u with pain specialist tomorrow. pending appointmen t with dr gamble in gi . continue hospital discharge medication s given Mixed hyperlipidemia 267 274337 E78.2 emphasized low fat/high fiber diet and regular exercise routine. monitor lipids Vitamin D deficiency 347 60418 E55.9 continue vitamin d supplement [id number] Alexx Garcia MD [facility] [address] [address] 08/20/2024 10:01:37 08/20/2024 10:48:27 Screening mammography 11308247 Z12.31 12/19/2023 Screening for malignant neoplasm of cervix 822476664 Z12.4 2016; total hysterecto my Active or passive immunization 859142965 Z23 up to date Vaccine de clined by patient 4785850996 02 Z28.20 Depression screening 171 956271 Z13.31 negative Patient counseled 171899 003 Z71.9 Body mass index 30+ - obesity 296273497 Z68.31 31.3 Leukocytosis 615717467 D 72.829 recheck lab today Panniculitis 70384114 M7 9.3 chronic abdominal pain. see chronic pancreatit is plan Chronic pancreatitis 235 413665 K86.1 continue current pain control. f/u with pain specialist tomorrow. pending appointmen t with dr gamble in gi . continue hospital discharge medication s given Essential hypertension 40688959 I10 will start low dose amlodipine . Will f/u with cardiology . emphasized low sodium diet and regular exercise routine as able/brandy ated Mixed hyperlipidemia 267 995441 E78.2 emphasized low fat/high fiber diet and regular exercise routine. monitor lipids Insomnia 622232109 G47.0 0 start hydroxyzin e as directed. sleep hygiene reviewed with patient. [id number] Alexx Garcia MD [facility] [address] [address] 08/28/2024 16:52:28 08/28/2024 17:44:46 Depression screening 885214591 Z13.31 negative Screening for malignant neoplasm of cervix 347046309 Z12.4 2016; total hysterecto my Hypoglycemia 792597609 E 16.2 rx sent for glucometer + supplies [id number] Alexx Garcia MD [facility] [address] [address] 09/15/2024 13:28:51 09/15/2024 15:15:12 Hospital inpatient stay within past 30 days 3791144961 106 Z76.89 see gastric ulcer plan Patient counseled 887280 Z71.9 Upper gastrointestinal bleeding 16630218 K92.89 on ppi bid. no nsaids. bland diet recommende d. refer for GI f/u Gastric ulcer 534088515 K25.9 continue ppi. no nsaids. f/u with GI. ER warnings given--voi rj understand ing Pain of ri ght knee joint 7767957155 19626 M25.561 refer to ortho for f/u [id number] Tomi Quezada MD [facility] [facility] [address] [place] [address] 10/16/2024 13:24:25 10/16/2024 14:51:44 Screening mammography 98977310 Z12.31 DONE 12/19/2023 Screening for malignant neoplasm of colon 560156268 Z12.11 NEVER DONE Depression screening 171 Z13.31 negative Active or passive immunization 003094970 Z23 tdap up to date Screening for malignant neoplasm of cervix 003272206 Z12.4 05/21/2015 Patient counseled 251127 003 Z71.9 Overweight in adulthood with body mass index of 25 or more but less than 30 412060286 Z68.29 334204 29.1 Gastroesop hageal reflux disease 518009894 K21.9 36845698 start on PPIhas appt in november with gastro will try to move up earlier Hypoglycemia 531991747 E 16.2 99665 will send continuous CGMpt has glucose tabs at home Low back pain 940638479 M54.50 insurance wont cover 6mg tablet of tizanidine , will send separate 4mg and 6 mg Nausea and vomiting 1692 1999 R11.2 169591 Patient was seen in the office today for nausea. Reviewed history regarding recent illness, medication s, symptoms, and physical exam. Studies ordered as below. Discussed plan with patient, who expresses understand ing. Follow up as noted below.on promethazi ne and scopalamin e Polypharmacy 433798060 Z 79.899 133490 multiple pain medsfollow s pain mgmthas been having nausea and vomiting [id number] Tomi Quezada MD [facility] [address] [facility], [facility] [place] [address] [place] [address] 11/26/2024 16:11:47 11/26/2024 17:57:02 Screening mammography 11801198 Z12.31 12/19/2023 Screening for malignant neoplasm of colon 188697720 Z12.11 NEVER DONE Hepatitis C screening 41 2288242 Z11.59 Depression screening 171 Z13.31 Active or passive immunization 176347327 Z23 tdap up to date Screening for malignant neoplasm of cervix 628202754 Z12.4 05/21/2015 Patient counseled 886666 003 Z71.9 Renewal of prescription 522599007 Z76.0 promethazi ne, tazanidine , scopolamin e Hospital i npatient stay within past 30 days 4672109777 106 Z76.89 [facility] Overweight in adulthood with body mass index of 25 or more but less than 30 955989317 Z68.29 991598 29.5 Medication declined 4061 23192 Z28.21 5224486484 Chronic pancreatitis 235 660892 K86.1 Following pain mgmt but having a flare up pain is 02/27will give short supply of hydrocodon e till sunday and needs to make appt ZOILA with pain specialist as today he is out of officepati ent had 4 narcan sprays gave ER warnings and when to use spray Low back pain 787821692 M54.50 insurance wont cover 6mg tablet of tizanidine , will send separate 4mg and 6 mg Hypoglycemia 910220344 E 16.2 05104 will send continuous CGMpt has glucose tabs at home Screening for cardiovascular system disease 796178317 Z13.6 Z13.1 Hyperlipid emia screening 222939300 Z13.220 Fatigue 61867642 R53.83 0401353 Screening for endocrine disorder, including Hypothyroi dism. Vitamin D deficiency 347 83390 E55.9 Screening for Vitamin D deficiency ; optimal level 50 - 100. Vitamin B1 2 deficiency (non anemic) 18401602 E53.8 Screening for B12 deficiency ; optimal level > 500. Diabetes m ellitus screening 506883846 Z13.1 1305243 [id number] Tomi Quezada MD [facility] [address] [place] [address] 1 [place] [address] 12/11/2024 14:54:26 12/11/2024 17:17:08 Screening mammography 47756993 Z12.31 12/19/2023 Screening for malignant neoplasm of colon 550199288 Z12.11 NEVER DONE Hepatitis C screening 41 3908773 Z11.59 Depression screening 171 810044 Z13.31 negative Active or passive immunization 431362345 Z23 tdap up to date Screening for malignant neoplasm of cervix 424677487 Z12.4 05/21/2015 Patient counseled 495193 003 Z71.9 Overweight in adulthood with body mass index of 25 or more but less than 30 466339134 Z68.29 817982 29.5 Transition of care 43243 04233 105 Z75.8 Gastroesop hageal reflux disease 251801877 K21.9 28027305 on PPI and carafate QID 1mghas appt in november with gastro will try to move up earlier Chronic pancreatitis 235 924709 K86.1 Following pain mgmt but having a flare up pain is 10/will give short supply of hydrocodon e till sunday and needs to make appt ZOILA with pain specialist as today he is out of officepati ent had 4 narcan sprays gave ER warnings and when to use spray Low back pain 345528334 M54.50 insurance wont cover 6mg tablet of tizanidine , will send separate 4mg and 6 mg Hematemesis 6707385 K92. 0 6070487691 [id number] Tomi Quezada MD PRIMARY [facility]ARE [address] [address] 01/27/2025 14:22:34 01/27/2025 15:43:11 Screening for malignant neoplasm of colon 855360903 Z12.11 12/06/2024 [facility] Depression screening 171 874583 Z13.31 negative Immunization due 2414127 08 Z23 3596889 tdap, flu & covid UP TO DATE. Screening for malignant neoplasm of cervix 136731875 Z12.4 05/21/2015 Body mass index 30+ - obesity 567486133 Z68.30 732936 30.7 Bacterial sinusitis 7034 51968 J32.9 B96.89 6690593 will treat as belowconti nue with flonase [id number] Alexx Garcia MD PRIMARY [facility]ARE [address] [address] 01/29/2025 10:53:44 01/29/2025 11:14:16 Screening mammography 63595683 Z12.31 12/19/2023 Depression screening 171 548980 Z13.31 negative Body mass index 30+ - obesity 046977356 Z68.30 861577 30.7 Acute maxi llary sinusitis 17836076 J01.00 96728868 refer to stat CT. If unable to have CT done today recommend patient go to ER or if new or worsening symptoms. continue augmentin [id number] Alexx Garcia MD PRIMARY [facility] [address], [facility] [place] [address] [place] [address] 01/30/2025 14:38:34 01/30/2025 15:05:49 Screening mammography 87764199 Z12.31 12/19/2023 Depression screening 171 963640 Z13.31 negative Infection of tooth 84185 8007 K04.7 965202 continue augmentin, refer to [facility]. send CT to other radiology clinictake tylenol/ib uprofen as directed for pain. ER warnings reiterated --voiced understand ing [id number] Alexx Garcia MD PRIMARY [facility]ARE [facility] [address] [place] [address] 02/02/2025 13:34:49 02/02/2025 15:52:38 Screening mammography 62849805 Z12.31 has order from 01/30/2025 Screening for malignant neoplasm of colon 001452916 Z12.11 FIT 11/2024 - colonoscop y has order from 11/2024 Depression screening 171 566901 Z13.31 Immunization due 4421258 08 Z23 0327106 Counseling 213541713 Z71 .89 39414973 Patient was seen in dental clinic 02/02/2025 [...] be ordered on 02/02/2025 Renewal of prescription 551723590 Z76.0 Infection of tooth 21331 8007 K04.7 396189 Chronic pancreatitis 235 258388 K86.1 Low back pain 676019476 M54.50 patient requesting stronger medication s for her chronic pain- advised she needs to follow up with finish painter and have a dental assessment for mouth pain [id number] Alexx Garcia MD [facility] [address] [facility], [facility] [place] [address] [place] [address] 03/04/2025 12:42:29 03/04/2025 14:40:23 [id number] Alexx Garcia MD [facility] [place] [address] [place] [address] 03/04/2025 15:28:27 03/04/2025 17:32:22 Screening mammography 20161690 Z12.31 12/19/2023 Screening for malignant neoplasm of colon 210792068 Z12.11 fecal 12/06/2024 Hepatitis C screening 41 4513462 Z11.59 Depression screening 171 605925 Z13.31 Immunization due 9560101 08 Z23 0825499 vaccines up to date Screening for malignant neoplasm of cervix 643376073 Z12.4 Counseling 051657452 Z71 .89 06938495 ER warnings given: patient to call 911 or go to nearest ER if severe chest pain, syncope, increased palpitatio ns, nausea, vomiting, LOC. Patinet verbalizes understand ing and agrees w plan.ER warnings given if abdominal pain, nausea, vomiting, fever, severe diarrhea, blood in stools, dark stools, blood in urine, syncope, chest pain, shortness of breath. Transition of care 79594 46206 105 Z75.8 03/02/2025 . scheduled f/u with GI on 03/16/2025 Body mass index 30+ - obesity 443248312 Z68.30 531426 30.8 Renewal of prescription 493297394 Z76.0 Infection of tooth 01169 8007 K04.7 443103 improved Low back pain 292219690 M54.50 patient requesting stronger medication s for her chronic pain- advised she needs to follow up with finish painter and have a dental assessment for mouth pain Chronic no nspecific abdominal pain 233716103 R10.9 scheduled f/u with GI on 03/16/2025 Essential hypertension 04976291 I10 pt will call cardiologi st to scheduled appt today Had extensive conversati on with pain about HTN and medication . Pt verbalized understand ing risk of uncontroll ed HTN. Pt agreed to contact cardiologi st to scheduled appt. Pt will be started on amlodipine and losartan. Nausea and vomiting 1692 1999 R11.2 3819811310 Patient no ncompliance - general 487552408 Z91.199 914434 ER warnings given: patient to call 911 [...] will be started on amlodipine and losartan. [id number] Alexx Garcia MD [facility] [address] [facility], [facility] [place] [address] [place] [address] 04/03/2025 14:33:08 04/03/2025 17:42:55 Screening mammography 13597852 Z12.31 12/19/2023 order given 03/04/2025 Screening for malignant neoplasm of colon 712301559 Z12.11 fecal 12/06/2024 Hepatitis C screening 41 3533595 Z11.59 11/26/2024 Depression screening 171 346862 Z13.31 Immunization due 7278139 08 Z23 5458395 vaccines up to date Screening for malignant neoplasm of cervix 706064052 Z12.4 Counseling 889476782 Z71 .89 94678414 ER warnings given: patient to call 911 or go to nearest ER if severe chest pain, syncope, increased palpitatio ns, nausea, vomiting, LOC. Patinet verbalizes understand ing and agrees w plan.ER warnings given if abdominal pain, nausea, vomiting, fever, severe diarrhea, blood in stools, dark stools, blood in urine, syncope, chest pain, shortness of breath. Renewal of prescription 862830072 Z76.0 promethazi ne 25mgtizani dine 2 and 4 mgscopolam ine 1mg over 3 days transderma l patches Nausea and vomiting 1693 1999 R11.2 Low back pain 407785055 M54.50 patient requesting stronger medication s for her chronic pain- advised she needs to follow up with finish painter and have a dental assessment for mouth pain Motion sickness 18026484 T75.3XXA Essential hypertension 83786838 I10 pt will call cardiologi st to [...] verbalizes understand ing and agrees w plan. [id number] Alexx Garcia MD PRIMARY CARE [facility] [address] [place] [address] 1 [place] [address] 05/05/2025 13:07:17 05/05/2025 15:01:15 Screening mammography 81473066 Z12.31 12/19/2023 order given 03/04/2025 Screening for malignant neoplasm of colon 763866197 Z12.11 fecal 12/06/2024 Hepatitis C screening 41 6882460 Z11.59 11/26/2024 Depression screening 171 366328 Z13.31 Immunization due 2782299 08 Z23 3905011 vaccines up to date Screening for malignant neoplasm of cervix 572435059 Z12.4 Counseling 368349884 Z71 .89 42796846 ER warnings given: patient to call 911 or go to nearest ER if severe chest pain, syncope, increased palpitatio ns, nausea, vomiting, LOC. Patinet verbalizes understand ing and agrees w plan.ER warnings given if abdominal pain, nausea, vomiting, fever, severe diarrhea, blood in stools, dark stools, blood in urine, syncope, chest pain, shortness of breath. Body mass index 30+ - obesity [id number] Z68.30 459922 30.8 Bilateral earache 950869 003 H92.03 [id number] Recommende d acetaminop hen/ibupro fen PRN pain/fever Follow up as below. Essential hypertension [id number] I10 pt will call cardiologi st to [...] Member ID Lamar Member ID Guarantor Name 05/05/2025 1 [place] ([place]) [id number] Kasia Boatenger [id number] Kasia Sunil 05/11/2025 1 [employer] (HMO) [id number] Kasia Boatenger [id number] Kasia Boatenger 05/05/2025 1 [employer] (HMO) [id number] Kasia Boatenger [id number] Kasia Barber Notes Date Note Type Note Provider Name and Address Organization Details Recorded Time 5 text/htm l Transition Care ManagementReported by PatientHPIFor timing, patient reportsdate of discharge: (01/30/2025). For facility, patient reportsdischarged to: (home). For current caregivers, patient reportsself. For vwc-gmcm-ul-face services performed, patient reportsnot medically indicated. For [...] dental treatmentcould not get imaging performed at [facility] imaging or professional radiology- will [...] half tab daily Pancreatitis history/chronic pancreatitisHospitalized at [facility] from 05/24/20[facility]-06/04/2024 (request record)Patient went back to [facility] 06/08/2024-06/15/2024 for pancreatitis pain again. Always [...] management 4 days agof/u with GI at [facility] Dr. Gamble 11/2024 Syncope history--has not recurredsuggested [...] recent divorceno longer following Dr Sr, at [facility] well and doesn't feel like needs medications at this timereports just having problems sleeping--would like something to help her sleep JULIA MCDERMOTT [address], [place], [address], [place] - Dr. Tomi Quezada 02/02/2025 15:50:06 text/htm l Transition Care ManagementReported by PatientHPIFor timing, patient reportsdate of discharge: (01/30/2025). For facility, patient reportsdischarged to: (home). For current caregivers, patient reportsself. For qdc-rjvs-ae-face services performed, patient reportsnot medically indicated. For [...] in the medical record. pt [facility] 02/[facility]/2025-02/27/1403/03/2025 abd painpt report symptoms are [...] dental treatmentcould not get imaging performed at [facility] imaging or professional radiology- will [...] severe pain.Pt denies chest pain, palpitations, dyspnea. Annealer Helper - has not seen him since May [...] of uncontrolled HTN. Pt agreed to contact turbine engineer to scheduled appt. Pt will be started on amlodipine and losartan. Pancreatitis history/chronic pancreatitisHospitalized at [facility] from 05/24/2024-06/04/2024 (request record)Patient went back to [facility] 06/08/2024-06/15/2024 for pancreatitis pain again. Always [...] management 4 days agof/u with GI at [facility] Dr. Gamble 11/2024 Syncope history--has not recurredsuggested [...] [facility] feel like needs medications at this timereports just having problems sleeping--would like something to help her sleep LOURDES COLEMAN NP [address], [place], [address], [place] - Dr. Tomi Quezada 03/04/2025 16:57:19 5 text/htm l not seen- had to reschedule Maritza Mcpherson NP [address], [place], [address], [place] - Dr. Tomi Quezada 03/04/2025 [...] changes since last visit pt went to [facility] on 02/28/2025-02/27/1403/03/2025 abd pain - no changes [...] at her GI follow-up with Dr. Amos Mratinez on 03/16/25. pt has not done ct [...] dental treatmentcould not get imaging performed at [facility] or professional radiology- will send [...] severe pain.Pt denies chest pain, palpitations, dyspnea. Annealer Helper - has not seen him since May [...] of uncontrolled HTN. Pt agreed to contact turbine engineer to scheduled appt. Pt will be started on amlodipine and losartan. Pancreatitis history/chronic pancreatitisHospitalized at [facility] from 05/24/2024-06/04/2024 (request record)Patient went back to [facility] 06/08/2024-06/15/2024 for pancreatitis pain again. Always [...] management 4 days agof/u with GI at [facility] Dr. Gamble 11/2024 Syncope history--has not recurredsuggested [...] recent divorceno longer following Dr Sr, at [facility] well and doesn't feel like needs medications at this timereports just having problems sleeping--would like something to help her sleep LOURDES COLEMAN NP [address], [place], [address], [place] - Dr. Tomi Quezada 04/03/2025 17:28:12 5 text/htm l Ear Pain Brief HPIReported by PatientHPIFor quality, patient reportssharp pain. For context, patient reportsrecent uribut reportsno recent trauma,no recent ear infection,no recent swimming,no arthritis,no immunocompromise,no dental problems,no recent airplane travel,no scuba diving, andnon-smoker. For location, patient reportsbilateral. For onset/timing, patient reportsnew onsetandstarted with uri. For severity, patient reportsno fever,able to perform daily activities, andno interference with sleep.ROS as noted in the HPI VIRTUAL VISIT: This is telehealth visit using real-time audio/video communication. Patient's verbal consent has been obtained to conduct telemedicine visit.Patient is located at home. Provider is located at the office.Patient verbalizes awareness of the limitations of a telemedicine visit and agrees to an in-person follow-up if needed.Patient's consent in on file in the medical record. Pt c/o natalie ear pain since yesterday, sinus drainage, facial pressure.pt visiting in [place] for holidays. pt reports did not get heart monitor studies, denied by insurance. no chest pain, no sob. no f/u with cardio schedulept reports she has not done any of the studies or follow ups ordered in the past. HTNon losartan, amlodipine mammo not scheduled,no gastro appt made.on promethazine 25mg - for pancreatis itis and auto immune diseasetizanidine 2 and 4 mg, - back painscopolamine 1mg over 3 days transdermal patches - for nausea --pt reports no changes since last visit prior visits: [facility] 02/28/2025-02/27/1403/03/2025 abd pain - no changessinus infection historySinus pressure: States having nasal congestion, sinus pressure, associated to headache, postnasal drip Denies: fever, chest pain, shortness of breathhas been using flonase history of type 2 diabetes mellitus, chronic [...] dental treatmentcould not get imaging performed at [facility] or professional radiology- will send [...] vision,admits does have headache, no neck pain Abdominal pain historyPatient called for hospital f/u [...] swelling, fevers, weight loss HypoglycemiaFBS- 76 - 10/15/2025reports has had intermittent feeling of low blood sugar--gets shaky and sweatsEats or drinks something sweet and symptoms improvewhile in the hospital was recommended to have glucometer to monitor symptoms HTNpt reports 03/03/2025- blood pressure 188/120 , pt report blood pressure is high with severe pain.Pt denies chest pain, palpitations, dyspnea. Annealer Helper - has not seen him since May [...] of uncontrolled HTN. Pt agreed to contact turbine engineer to scheduled appt. Pt will be started on amlodipine and losartan. Pancreatitis history/chronic pancreatitisHospitalized at [facility] from 05/24/2024-06/04/2024 (request record)Patient went back to [facility] 06/08/2024-06/15/2024 for pancreatitis pain again. Always [...] management 4 days agof/u with GI at [facility] Dr. Gamble 11/2024 Syncope history--has not recurredsuggested [...] to 50mg ER-pt states she has not received any blood pressure medicaton. had cardiology appt 05/02/2024 Dr. Keyes EP;has appts for tilt table and to have loop recorder placed. Chronic abdominal pain/Gastroparesistold appointment with Dr. Gamble 11/2024; does not want to see any other gidue to chronic recurrent Pancreatitismanaged by pain management; has not seen gion promethazinerefer to second gi until seen by dr diego not scheduled gi appointment Chronic back pain follows pain managementDr Rafaeianon tizanadine 6m, takes between 1 - to -4 times dailydenies illicit drug use vitamin dtaking supplementrecheck lab mixed dldnot taking medication. MDD/GADdiagnosed in her 20striggers: recent divorceno longer following Dr Sr, at [facility] well and doesn't feel like needs medications at this timereports just having problems sleeping--would like something to help her sleep LOURDES COLEMAN [employer] [address], [place], [address], [place] Dr. Tomi Quezada 05/05/2025 14:28:10 OBGyn Episode No OBEpisode recorded.
--- OUTSIDE RECORDS SUMMARY | 2025-05-18 16:29 | XMS_ITS | Patient Health Record ---
Author Organization [facility] Address [address] [place] [address] Care Team Providers Care Platform Supervisor Name Role Phone Thomas Crandall Unavailable [phone] Torrie Dyson Unavailable Unavailable Allergies Allergen (clinical drug ingredient) Drug/Non Drug Allergy documented on EMR Reaction Allergy Type Onset Date Status codeine Codeine Unknown Drug Allergy Active Iodine Unknown Drug Allergy Active ketorolac Ketorolac Unknown Drug Allergy Active Reason For Referral No Information Medications Medication SIG (Take, Route, Frequency, Duration) Notes Start Date End Date Status DULoxetine HCl 40 MG Capsule Delayed Release Particles 1 capsule Orally Twice a day; Duration: 30 day(s) Active Gabapentin 400 MG Tablet 1 capsule Orall y every 8 hours; Duration: 30 day(s) Activ e Nabumetone 750 MG Tablet 1 tablet Orally bid PRN; Duration: 30 day(s) Active tiZANidine HCl 2 MG Tablet 1 tablet as n eeded Orally Three times a day; Duration: 30 day(s) Active traMADol HCl 50 MG Tablet 1 tablet Orally QD PRN Active Social History Tobacco Use: Social History Observation Description Date Details (start date - stop date) Current Smoker NA - NA Social History Social History Social Info Question Answer Notes Alcohol: In the last year hav e you consumed alcohol? No Tobacco Use: Are you a: Current Smoker however, the patient does report vaping Additional Details Category Social Info Options Details Social History Children: Yes, 1 Marital Status: Caffeine intake: None Exercise: None Reported Education: High School Illicit Drug Use: None Currently employed: No Problems Problem Type SNOMED Code ICD Code Onset Dates Problem Status W/U Status Risk Notes Problem Chronic pain syndrome (035551418) Pain - Chronic Pain Syndrome (G89.4) Active confirmed Problem Chronic pancreatitis (183889462) Other chronic pancreatitis (K86.1) Active confirmed Problem Cervical spondylosis without myelopathy (209430503) Spondylosis without Myelopathy or Radiculopathy, Cervical Region (M47.812) Active confirmed Problem Cervical spondylosis without myelopathy (558252599) Other spondylosis, cervical region (M47.892) Active confirmed Problem Neuralgia (10886633) Neuralgia and neuritis, unspecified (M79.2) Active confirmed Problem Generalized abdominal pain (676378203) Abdominal - Generalized - Pain (R10.84) Active confirmed Problem Preoperative diagnosis (146827651) Encounter for preprocedural laboratory examination (Z01.812) Active confirmed Problem Long-term current use of drug therapy (032023956) Other retirement (current) drug therapy (Z79.899) Active confirmed Problem Acute pancreatitis (530387991) Acute pancreatitis without necrosis or infection, unspecified (K85.90) Active confirmed Problem Mechanical complication of nervous system device, implant AND/OR graft (05338442) Breakdown (mechanical) of implanted electronic neurostimulator, generator, initial encounter (T85.113A) Active confirmed Problem Muscle pain (78302768) Myalgia, other site (M79.18) Active confirmed Problem Chronic pain syndrome (170187927) Chronic pain syndrome (G89.4) Active confirmed Plan Of Treatment Pending Test Test Name Order Date Urine Drug Scrn (Amphetamine /Methamphetamine, Benzodiazepines, Barbiturates, Opiates, Cocaine, Methadone) - UDS 08/23/2022 Urine Drug Scrn (Amphetamine /Methamphetamine, Benzodiazepines, Barbiturates, Opiates, Cocaine, Methadone) - UDS 03/09/2022 Urine Drug Scrn (Amphetamine /Methamphetamine, Benzodiazepines, Barbiturates, Opiates, Cocaine, Methadone) - UDS 06/24/2021 TCA panel (Amitriptyline, No rtriptyline, Imipramine, Desipramine) - Confirmation 06/24/2021 Stimulants panel (Methylpenidate) - Conf irmation 06/24/2021 Urine Drug Scrn DIP 01/17/2022 Urine Drug Scrn DIP 09/22/2021 Opioids (Synthetic) (Fentany l, Norfentanyl, Tapentadol, Methadone, EDDP, Tramadol, Meperidine, Normeperidine, Buprenorphine, Norbuprenorphine) - Confirmation 01/17/2022 Opioids (Synthetic) (Fentany l, Norfentanyl, Tapentadol, Methadone, EDDP, Tramadol, Meperidine, Normeperidine, Buprenorphine, Norbuprenorphine) - Confirmation 09/22/2021 Opioids (Synthetic) (Fentany l, Norfentanyl, Tapentadol, Methadone, EDDP, Tramadol, Meperidine, Normeperidine, Buprenorphine, Norbuprenorphine) - Confirmation 08/23/2022 Opioids (Synthetic) (Fentany l, Norfentanyl, Tapentadol, Methadone, EDDP, Tramadol, Meperidine, Normeperidine, Buprenorphine, Norbuprenorphine) - Confirmation 03/09/2022 Opioids (Synthetic) (Fentany l, Norfentanyl, Tapentadol, Methadone, EDDP, Tramadol, Meperidine, Normeperidine, Buprenorphine, Norbuprenorphine) - Confirmation 06/24/2021 Opioids panel (Natural and S alesia-Synth) (Oxycodone, Noroxycodone, Oxymorphone, Codeine, Morphine, Hydrocodone, Norhydrocodone, Hydromorphone) - Confirmation 06/24/2021 Opioids panel (Natural and S alesia-Synth) (Oxycodone, Noroxycodone, Oxymorphone, Codeine, Morphine, Hydrocodone, Norhydrocodone, Hydromorphone) - Confirmation 03/09/2022 Opioids panel (Natural and S alesia-Synth) (Oxycodone, Noroxycodone, Oxymorphone, Codeine, Morphine, Hydrocodone, Norhydrocodone, Hydromorphone) - Confirmation 08/23/2022 Opioids panel (Natural and S alesia-Synth) (Oxycodone, Noroxycodone, Oxymorphone, Codeine, Morphine, Hydrocodone, Norhydrocodone, Hydromorphone) - Confirmation 09/22/2021 Opioids panel (Natural and S alesia-Synth) (Oxycodone, Noroxycodone, Oxymorphone, Codeine, Morphine, Hydrocodone, Norhydrocodone, Hydromorphone) - Confirmation 01/17/2022 Neuropathic pnl (Gabapentin, Pregabalin) - Confirmation 09/22/2021 Neuropathic pnl (Gabapentin, Pregabalin) - Confirmation 01/17/2022 Neuropathic pnl (Gabapentin, Pregabalin) - Confirmation 08/23/2022 Neuropathic pnl (Gabapentin, Pregabalin) - Confirmation 03/09/2022 Neuropathic pnl (Gabapentin, Pregabalin) - Confirmation 06/24/2021 Illicit Drug pnl (MDMA, Elvis oylecgonine, PCP, Amphetamine, Methamphetamine, 6-JOSEPH) - Confirmation 03/09/2022 Illicit Drug pnl (MDMA, Elvis oylecgonine, PCP, Amphetamine, Methamphetamine, 6-JOSEPH) - Confirmation 06/24/2021 Illicit Drug pnl (MDMA, Elvis oylecgonine, PCP, Amphetamine, Methamphetamine, 6-JOSEPH) - Confirmation 08/23/2022 Illicit Drug pnl (MDMA, Elvis oylecgonine, PCP, Amphetamine, Methamphetamine, 6-JOSEPH) - Confirmation 09/22/2021 Illicit Drug pnl (MDMA, Elvis oylecgonine, PCP, Amphetamine, Methamphetamine, 6-JOSEPH) - Confirmation 01/17/2022 Benzodiazep. pnl (Alprazolam , 4-pbshm-eckhmyrjjd, Lorazepam, Nordiazepam, Oxazepam, Temazepam, a-OH Alprazolam) - Confirmation 08/23/2022 Benzodiazep. pnl (Alprazolam , 5-cwnve-fqgxtfxgwh, Lorazepam, Nordiazepam, Oxazepam, Temazepam, a-OH Alprazolam) - Confirmation 03/09/2022 Benzodiazep. pnl (Alprazolam , 3-jmanz-knoqpibobu, Lorazepam, Nordiazepam, Oxazepam, Temazepam, a-OH Alprazolam) - Confirmation 06/24/2021 Barbiturates pnl (Phenobarbi jovita, Butalbital, Pentobarbital, Secobarbital) - Confirmation 06/24/2021 Validity Test 06/24/2021 Validity Test 03/09/2022 Validity Test 01/17/2022 Validity Test 09/22/2021 Validity Test 08/23/2022 OPIATES URINE CONFIRMATORY 08/23/2022 OPIATES URINE CONFIRMATORY 03/09/2022 OPIATES URINE CONFIRMATORY 06/24/2021 OPIATES URINE CONFIRMATORY 01/17/2022 OPIATES URINE CONFIRMATORY 09/22/2021 ILLICIT DRUGS URINE CONFIRMATORY 022 ILLICIT DRUGS URINE CONFIRMATORY ILLICIT DRUGS URINE CONFIRMATORY ILLICIT DRUGS URINE CONFIRMATORY ILLICIT DRUGS URINE CONFIRMATORY 023 SYNTHETIC OPIOIDS (LC/MS/MS) 08/23/2022 SYNTHETIC OPIOIDS (LC/MS/MS) 03/09/2022 SYNTHETIC OPIOIDS (LC/MS/MS) 01/17/2022 SYNTHETIC OPIOIDS (LC/MS/MS) 06/24/2021 SYNTHETIC OPIOIDS (LC/MS/MS) 09/22/2021 TCA (LC/MS/MS) 06/24/2021 Celiac Plexus Nerve Block - Left 022 Celiac Plexus Nerve Block - Left Celiac Plexus Nerve Block - Left 022 Celiac Plexus Nerve Block - Left 022 SCS Implant - Thoracic 01/24/2022 SCS Explant - Lumbar - Full System 08/23 SCS Trial - Thoracic 09/22/2021 Discussed - Celiac Plexus Nerve Block - Left 08/26/2021 Discussed - SCS Trial - Thoracic 022 MRSA ([id number]) 09/22/2021 URINE DRUG SCREEN (EIA) 08/23/2022 Insurance Providers Payer Name Payer Address Payer Phone Subscriber Number Group Number Insured Name Patient Relationship to Insured Coverage Start Date Coverage End Date [employer] O [employer] [address] [place] [phone] [id number] Kasia Barber Self - patient is the insured Medical (General) History Medical History History ICD Code Chronic Pancreatitis Restless Leg Syndrome Surgical History Surgery Date(Month/Year) Appendectomy 2018 Cholecystectomy 1997 Total Hysterectomy 2016 Gastric Sleeve 2017 Right Knee Surgery 2020 Hospitalization History Reason Date(Month/Year) Jazmin/[facility] - Chronic Pancreatitis 05/09 21 ER Visit due to pain 07/01/2021 Abdominal Pain 07/27/2021 [facility] - pancreatitis 09/19
--- OUTSIDE RECORDS SUMMARY | 2025-05-18 16:29 | XMS_ITS | Continuity of Care Document ---
Author Organization [place] - Dr. Tomi Quezada, [facility] Address [address] [address] Care Team Providers Care Server Software Engineer Name Role Phone [facility] Pain Management Assessment [...] healthy living. Further treatment per orders below. [email or web address] Not available 03/04/2025 16:47:59 Plan of Treatment Reminders Order Date Submit Date Provider Last Modified By Organization Details Last Modified Time Details Appointments None recorded. Lab fecal occult blood, immunoass ay, stool 2024 025 [facility], [address], [address], [place], [address], 5 04:19:14 Referral gastroent erologist referral 2024 025 V[facility]NA Not available 04:14:24 Procedures None recorded. Surgeries None recorded. Imaging MAMMO, screening , bilateral 2024 025 [facility], [address], [address], [place], [address], 04:02:40 Medication Orders promethaz ine 25 mg tablet 2024 [facility] #[id number], [address] [place], [address], 17:10:00 amlodipin e 5 mg tablet 2024 [facility] #[id number], [address] [place], [address], 16:57:37 losartan 100 mg tablet 2024 [facility] #[id number], [address] [place], [address], 17:10:35 Patient TargetsNo targets recorded. Patient InstructionsNo instructions recorded. Reason for Referral Vault Attendant Referral for Screening for malignant neoplasm of colon Referring Physician: Lourdes Coleman, Family Medicine, Encounter Date: 03/04/2025 Results Created Date Observation Date Name Description Value Unit Range Abnormal Flag Note LastModifiedBy Organization Detail LastModifiedTime Result Notes None recorded. Problems Name Problem SNOMED Code Status Onset Date Resolution Date Notes Provider Name and Address Organization Details Recorded Time Acute pancreatitis 048033205 Active DAVID Solano - Dr. Tomi Quezada 16:24:31 Restless legs syndrome 83924766 Active DAVID Solano - Dr. Tomi Quezada 16:24:31 Migraine 25856897 Active DAVID Solano Dr. 16:24:31 Simple obesity 493740212 Active DAVID Solano Dr. 16:24:31 Chronic pancreatitis 618786604 Active 2022 LOURDES COLEMAN MANAGER OF DRILLING [address], [place], [address], [place] - Dr. Tomi Quezada 5 15:56:21 Mixed hyperlipidemia 110928028 Active 2022 JERROD [place]utz, [place] - Dr. Tomi Quezada 3 16:50:12 Vitamin B12 deficiency (non anemic) 45054971 Active 2022 JERROD [place]utz, [place] - Dr. Tomi Quezada 3 16:50:13 Conjunctivitis 0927369 Active 2022 Alexx Garcia MD [address], [place], [address], [place] - Dr. Tomi Quezada 3 13:12:09 Chronic nonspecific abdominal pain 487072855 Active 2022 LOURDES COLEMAN NP [address], [place], [address], [place] - Dr. Tomi Quezada 5 16:51:48 Opioid dependence 20943152 Active 2022 Tomi Quezada MD [address], [place], [address], [place] - Dr. Tomi Quezada 3 21:55:27 Benzodiazepine dependence 774009716 Active 2022 Tomi Quezada MD [address], [place], [address], [place] - Dr. Tomi Quezada 3 21:55:46 Low back pain 065131280 Active 2023 LOURDES COLEMAN NP [address], [place], [address], [place] - Dr. Tomi Quezada 5 15:56:21 Tachycardia 9237377 Active 2023 Maritza Mcpherson NP [address], [place], [address], [place] Dr. Tomi Quezada 4 17:47:04 Seizure disorder 064241107 Active 2023 Maritza Mcpherson NP [address], [place], [address], [place] - Dr. Tomi Quezada 4 11:16:55 Headache 39238254 Active 2023 Maritza Mcpherson, MANAGER [employer] [address], [place], [address], [place] - Dr. Tomi Quezada 4 11:17:33 Essential hypertension 26079891 Active 2023 LOURDES COLEMAN MANAGER [employer] [address], [place], [address], [place] - Dr. Tomi Quezada 16:50:08 Tooth infection 904714880 Active 2024 LOURDES COLEMAN NP [address], [place], [address], [place] - Dr. Tomi Quezada 15:56:21 Nausea and vomiting, unspecified vomiting type 65898526 Active 2024 LOURDES COLEMAN [employer] [address], [place], [address], [place] Dr. Tomi Quezada 16:41:02 Motion sickness 99036726 Active 2024 LOURDES COLEMAN NP [address], [place], [address], [place] - Dr. Tomi Quezada 17:26:23 Otalgia of both ears 485345045 Active 2024 LOURDES COLEMAN NP [address], [place], [address], [place] - Dr. Tomi Quezada 14:21:32 Problem Notes None recorded. Procedures Surgical History Date Name Laterality Status Provider Name and Address Organization Details Recorded Time Hospital follow up completed TALITA Quezada 11/26/2024 16:30:48 Date of Last Colonoscopy completed URBIA Quezada 01/27/2025 14:30:32 025 Hospital follow up completed Lor Quezada 09/15/2024 14:59:32 025 Hospital follow up completed Lor Quezada 08/28/2024 17:11:04 025 Hospital follow up completed PARAS Roman Dr. Tomi Quezada 06/25/2024 16:23:44 025 Hospital [...] Tomi Quezada 09/26/2022 14:47:29 Appendectomy completed KEYLA Quezada 09/26/2022 14:47:36 Cholecystectomy completed KEYLA HERNANDEZ [...] Name and Address Organization Details Recorded Time 28880 iodine medicatio n Not available Not available Not available 04/02/2025 5933 RxNorm Not Available vesna - External Data Service - [facility] 5 19:27:15 37917 prednison e medicatio n Not available Not available Not available 04/02/2025 8640 RxNorm Not Available critical access hospital External Data Service - [facility] 19:27:15 40546 codeine medicatio n Not available Not available Not available 05/05/2025 2670 RxNorm Not Available critical access hospital External Data Service - [facility] 5 13:08:55 6339 shellfish derived food,medi cation Not [...] Not available Not available Not available 08/20/2024 60117 RxNorm DAVID Martin - Dr. Tomi Quezada [...] e 50 mcg/actua tion nasal spray,heriberto pension [place] 1 spray every day by intranas al [...] Updated DateTime 03/04/2025 165.1 cm 30.8 kg/m2 96543.59 g 165.1 cm 30.8 kg/m2 53399.5 9 g BRIANA Quezada 15:33:53 Social History Question Answer Notes LastModified by Organizat ion Details LastModified Time Tobacco Smoking Status Never Smoker DAVID Joseph Dr. 09/26/2022 14:46:38 Do You Have An Advance Directive? No [email or web address] Information not available 09/26/2022 If You Are , What Was Your Level Of Alcohol Consumption Prior To ? None Information not available 09/26/2022 What Is Your Level Of Caffeine Consumption? Occasional [email or web address] Information not available 09/26/2022 What Type Of Diet Are You Following? REGULAR [email or web address] Information not available 09/26/2022 Do You Have A Medical Power Of Production Clerks Supervisor? No Information not available 09/26/2022 How Many Children Do You Have? 1 [email or web address] Information not available 09/26/2022 Do You Have A Patient Advocate? No Information no t available 09/26/2022 What Is Your Relationship Status? Information not available 09/26/2022 Are You Sexually Active? No [email or web address] Information not available 09/26/2022 Do You Have Difficulty Walking Or Climbing Stairs? No [email or web address] Information not available 09/26/2022 Sex: Female Functional Status Question Answer Note LastModified by Organizat ion Details LastModified Time Do you use any illicit or recreational drugs? No [email or web address] Information not available 09/26/2022 Do you or have you ever used any other forms of tobacco or nicotine? No [email or web address] Information not available 09/26/2022 What is your level of alcohol consumption? None [email or web address] Information not available 09/26/2022 Are you currently employed? No Information not available 09/26/2022 What is your status? Not [email or web address] Information no t available 09/26/2022 Are you able to walk independently without assistance or assistive devices? YESWOREST Information not available 09/26/2022 Are you able to care for yourself independently? Yes [email or web address] Information not available 09/26/2022 What is your exercise level? Occasional [email or web address] Information not available 09/26/2022 Mental Status None [...] 24 cancelled patient objection Alexx Garcia MD [address] [address], [place], [address], [place] - Dr. Tomi Quezada 10/03/2023 18:30:12 Influenza, MDCK, quadrivalent, preservative 10/03/19 24 cancelled patient objection Alexx Garcia MD [address] [address], [place], [address], [place] - Dr. Tomi Quezada 10/03/2023 18:30:12 [...] 01/24/20 24 cancelled patient objection Maritza Mcpherson, MANAGER OF D[employer]LLING [address], [place], [address], [place] - Dr. Tomi Quezada 01/24/2024 17:42:28 Influenza, MDCK, trivalent, preservative 02/07/20 24 cancelled patient objection Maritza Mcpherson, MANAGER OF D[employer]LL[employer] [address], [place], [address], [place] - Dr. Tomi Quezada 02/08/2024 11:15:01 Influenza, MDCK, trivalent, preservative 03/21/20 24 cancelled patient objection CHASITY WEISS [address], [place], [address], [place] - Dr. Tomi Quezada 03/21/2024 17:11:37 RSV, bivalent, protein subunit RSVpreF, diluent reconstituted, 0.5 mL, PF 03/03/20 completed DAVID Coreas - Dr. Tomi Quezada 04/03/2025 14:43:18 influenza nasal, unspecified formulation 06/06/19 completed DAVID Coreas - Dr. Tomi Quezada 04/03/2025 14:45:37 Influenza, MDCK, trivalent, PF 08/21/19 cancelled patient objection CHASITY WEISS [address], [place], [address], [place] - Dr. Tomi Quezada 08/20/2024 10:44:31 Influenza, MDCK, trivalent, preservative 11/27/19 cancelled patient objection Carlin Patterson NP [address], [place], [address], [place] - Dr. Tomi Quezada 11/26/2024 17:55:55 COVID-19, mRNA, LNP-S, PF, aldo-sucrose, 30 mcg/0.3 mL 11/27/19 cancelled patient objection Carlin Patterson NP [address], [place], [address], [place] - Dr. Tomi Quezada 11/26/2024 17:55:55 Past Encounters Encounter ID Performer Location Encounter Start Date Encounter Closed Date Diagnosis/Indication Diagnosis SNOMED-CT Code Diagnosis ICD10 Code Diagnosis IMO Codes Diagnosis Note [id number] Alexx Garcia MD [facility] [place] [id number] [facility], [facility] [address] [place] [address] 02/02/2025 13:34:49 02/02/2025 15:52:38 Screening mammography 99337342 Z12.31 has order from 01/30/2025 Screening for malignant neoplasm of colon 074881894 Z12.11 FIT 11/2024 - colonoscop y has order from 11/2024 Depression screening 171 133204 Z13.31 Immunization due 5446854 08 Z23 2221563 Counseling 880733165 Z71 .89 [id number] Patient was seen in dental clinic 02/02/2025 [...] be ordered on 02/02/2025 Renewal of prescription 121534392 Z76.0 Infection of tooth 77185 8007 K04.7 381705 Chronic pancreatitis 235 850272 K86.1 Low back pain 626385260 M54.50 patient requesting stronger medication s for her chronic pain- advised she needs to follow up with electrostatic painter and have a dental assessment for mouth pain [id number] Alexx Garcia MD [facility] [address] [address] 03/04/2025 12:42:29 03/04/2025 14:40:23 [id number] Alexx Garcia MD [facility] [address] [facility] [place], [facility] [address] [place] [address] 03/04/2025 15:28:27 03/04/2025 17:32:22 Screening mammography 28528833 Z12.31 12/19/2023 Screening for malignant neoplasm of colon 173066591 Z12.11 fecal 12/06/2024 Hepatitis C screening 41 9949778 Z11.59 Depression screening 171 183104 Z13.31 Immunization due 0746110 08 Z23 7252319 vaccines up to date Screening for malignant neoplasm of cervix 011314342 Z12.4 Counseling 684768594 Z71 .89 [id number] ER warnings given: patient to call 911 or go to nearest ER if severe chest pain, syncope, increased palpitatio ns, nausea, vomiting, LOC. Patinet verbalizes understand ing and agrees w plan.ER warnings given if abdominal pain, nausea, vomiting, fever, severe diarrhea, blood in stools, dark stools, blood in urine, syncope, chest pain, shortness of breath. Transition of care 72809 21912 105 Z75.8 03/02/2025 . scheduled f/u with GI on 03/16/2025 Body mass index 30+ - obesity 710266840 Z68.30 146300 30.8 Renewal of prescription 003985630 Z76.0 Infection of tooth 81245 8007 K04.7 808500 improved Low back pain 712140031 M54.50 patient requesting stronger medication s for her chronic pain- advised she needs to follow up with electrostatic painter and have a dental assessment for mouth pain Chronic no nspecific abdominal pain 385727549 R10.9 scheduled f/u with GI on 03/16/2025 Essential hypertension 19677151 I10 pt will call cardiologi st to scheduled appt today Had extensive conversati on with pain about HTN and medication . Pt verbalized understand ing risk of uncontroll ed HTN. Pt agreed to contact cardiologi st to scheduled appt. Pt will be started on amlodipine and losartan. Nausea and vomiting 1692 1999 R11.2 [id number] [facility] 935050506 Z91.199 750917 ER warnings given: patient to call 911 [...] ID Guarantor Name 03/04/2025 1 [employer] (O) [id number] Kasia Barber [id number] Kasia Barber Notes Date Note Type Note Provider Name and Address Organization Details Recorded Time 5 text/htm l Transition Care ManagementReported by PatientHPIFor timing, patient reportsdate of discharge: (01/30/2025). For facility, patient reportsdischarged to: (home). For current caregivers, patient reportsself. For bzj-ymsd-oz-face services performed, patient reportsnot medically indicated. For [...] in the medical record. pt went to [facility] on 02/28/2025-02/27/1403/03/2025 abd painpt report symptoms are [...] dental treatmentcould not get imaging performed at [facility] or [facility]- will send STAT [...] severe pain.Pt denies chest pain, palpitations, dyspnea. Binder Cutter Hand - has not seen him since May [...] of uncontrolled HTN. Pt agreed to contact metallurgical analyst to scheduled appt. Pt will be started on amlodipine and losartan. Pancreatitis history/chronic pancreatitisH[facility] (request [...] 4 days agof/[place] [facility] [place] Dr. Gamble 11/2024 [...] pressure medicaton. had cardiology appt 05/02/2024 Dr. Wali ROWLAND; has appts for tilt table and to [...] recent divorceno longer following Dr Sr, at [facility] well and doesn't feel like needs medications at this timereports just having problems sleeping--would like something to help her sleep LOURDES COLEMAN NP [address], [place], [address], [place] Dr. Tomi Quezada 03/04/2025 16:57:19 text/htm l not seen- had to reschedule Maritza Mcpherson NP [address], [place], [address], [place] - Dr. Tomi Quezada 03/04/2025 14:40:22 OBGyn Episode No OBEpisode recorded.
--- OUTSIDE RECORDS SUMMARY | 2025-05-18 16:29 | XMS_ITS | Clinical Summary ---
Author Organization [employer] [facility] Address [address] [place] [address] Care Team Providers Care Manager Technical Services Name Role Phone Pcp, Lisbeth Primary Care Provider [phone] Immunizations Immunization Administration Dates Next Due Tdap [...] Not on file Insurance [employer] Care Teams Manager Technical Services Relationship Specialty Start Date End Date Lisbeth Benz PCP - General Family Medicine 01/31/25
--- OUTSIDE RECORDS SUMMARY | 2025-05-18 16:29 | XMS_ITS | Patient Health Record ---
Author Organization [facility] Address [address] [place] [address] Care Team Providers Care Operator Maintainer Name Role Phone Adela Mcghee Unavailable [phone] Allergies Allergen (clinical drug ingredient) Drug/Non Drug Allergy documented on EMR Reaction Allergy Type Onset Date Status codeine Codeine Unknown Drug Allergy Active Iodine Unknown Drug Allergy Active ketorolac Ketorolac Unknown Drug Allergy Active Reason For Referral No Information Medications Medication SIG (Take, Route, Frequency, Duration) Notes Start Date End Date Status Pantoprazole Sodium 40 MG 1 tablet Orally Once a day Active DULoxetine HCl 40 MG 1 capsule Orally On ce a day Active Narcan 4 MG/0.1ML as directed Nasally Active traMADol HCl 50 MG 1 tablet as needed O rally Once a day Active Gabapentin 300 MG 1 capsule Orally Onc e a day Active Morphine Sulfate 15 MG 1 tablet as neede d Orally every 4 hrs Active Ondansetron HCl 4 MG 1 tablet Orally Once a day Active tiZANidine HCl 6 MG 1 capsule as needed Orally Three times a day Active Problems Problem Type SNOMED Code ICD Code Onset Dates Problem Status W/U Status Risk Notes Problem Chronic pain syndrome (896310184) Chronic pain syndrome (G89.4) Active confirmed Problem Chronic pancreatitis (643181049) Other chronic pancreatitis (K86.1) Active confirmed Plan Of Treatment No Information Insurance Providers Payer Name Payer Address Payer Phone Subscriber Number Group Number Insured Name Patient Relationship to Insured Coverage Start Date Coverage End Date [employer] plan [address] [place] [address] [id number] Kasia Barber Self - patient is the insured Medical (General) History Medical History History ICD Code Other chronic pancreatitis K86.1 Restless legs syndrome G25.81 Surgical History Surgery Date(Month/Year) Appendectomy 2017 Cholecystectomy 1996 Total Hysterectomy 2015 Gastric Sleeve 2017 Right Knee Surgery 2020
--- OUTSIDE RECORDS SUMMARY | 2025-05-18 16:29 | XMS_ITS | Patient Health Record ---
Author Organization [facility] Address [address] [place] [phone] Care Team Providers Care Solar Maintenance Technician Name Role Phone [facility] Primary Care Provider [phone] [facility] Unavailable Reason For Referral No Information Social History Sex Assigned At : Social History Observation Description Sex Assigned At Female Encounters Encounter Location Date Provider Diagnosis [facility] [address] [place] [id number] 02/02/2025 [facility] Plan Of Treatment No Information
--- OUTSIDE RECORDS SUMMARY | 2025-05-18 16:30 | XMS_ITS | Continuity of Care Document ---
Author Organization [place] - Dr. Tomi Quezada, [facility] Address [address] [facility] [address] [place] [address] Care Team Providers Care Curling Machine Operator Name Role Phone [facility] Pain Management Assessment Encounter Date Assessment Date Assessment LastModified by Organization Details LastModified Time 04/03/2025 04/03/2025 Patient presented for medication refill. Patient tolerating medication well at current dose without adverse effects. Refilled as below. Discussed plan with patient, who expressed understanding . Follow up as noted below. [email or web address] Not available 04/03/2025 17:26:16 Plan of Treatment Reminders Order Date Submit Date Provider Last Modified By Organization Details Last Modified Time Details Appointments None recorded. Lab None recorded. Referral None recorded. Procedures None recorded. Surgeries None recorded. Imaging None recorded. Medication Orders promethazin e 25 mg tablet 2024 025 [facility]/Pharmacy #[id number], [address] [place], [address], 17:27:50 tizanidine 4 mg tablet 2024 025 [facility]/Pharmacy #[id number], [address] [place], [address], 17:27:50 tizanidine 2 mg tablet 2024 025 [facility]/Pharmacy #[id number], [address] [place], [address], 17:27:50 scopolamine 1 mg over 3 days transdermal patch 2024 025 [facility]/Pharmacy #[id number], [address] , [place], [address], 17:27:50 Patient TargetsNo targets recorded. Patient Instructions Encounter Date Encounter Id Patient Instructions Last Modified By Organization Details Last Modified Time 04/03/[id number] individual counseling* [email or web address] Not available 04/03/2025 17:27:46 Reason for Referral None Reported. Results Created Date Observation Date Name Description Value Unit Range Abnormal Flag Note LastModifiedBy Organization Detail LastModifiedTime 04/03/2004/03/2025 indiv idual couns eling * patient counseled Not Available Primar y [facility] [address] [facility] [address], [place], [address], 04/02/2025 18:05:08 Result Notes None recorded. Problems Name Problem SNOMED Code Status Onset Date Resolution Date Notes Provider Name and Address Organization Details Recorded Time Acute pancreatitis 744005316 Active [place] - Dr. Tomi Quezada 5 16:24:31 Restless legs syndrome 63430714 Active [place] - Dr. Tomi Quezada 5 16:24:31 Migraine 17627263 Active [place] - Dr. Tomi Quezada 5 16:24:31 Simple obesity 515305596 DAVID Funez - Dr. Tomi Quezada 5 16:24:31 Chronic pancreatitis 435618127 Active 2022 JESUS PIMENTEL SHIRT HEMMER [facility] [address], [place], [address], [place] - Dr. Tomi Quezada 5 15:56:21 Mixed hyperlipidemia 323180245 Active 2022 DAVID Tererll - Dr. Tomi Quezada 3 16:50:12 Vitamin B12 deficiency (non anemic) 84808259 Active 2022 DAVID Terrell - Dr. Tomi Quezada 3 16:50:13 Conjunctivitis 0955378 Active 2022 Alexx Garcia MD [address], [place], [address], [place] - Dr. Tomi Quezada 3 13:12:09 Chronic nonspecific abdominal pain 832451499 Active 2022 JESUS PIMENTEL NP [address], [place], [address], [place] - Dr. Tomi Quezada 5 16:51:48 Opioid dependence 86400213 Active 2022 Tomi Quezada MD [address], [place], [address], [place] - Dr. Tomi Quezada 21:55:27 Benzodiazepine dependence 828379835 Active 2022 Tomi Quezada MD [address], [place], [address], [place] - Dr. Tomi Quezada 21:55:46 Low back pain 416280154 Active 2023 JESUS PIMENTEL NP [address], [place], [address], [place] - Dr. Tomi Quezada 15:56:21 Tachycardia 0253125 Active 2023 Maritza Mcpherson NP [address], [place], [address], [place] - Dr. Tomi Quezada 4 17:47:04 Seizure disorder 435710366 Active 2023 Maritza Mcpherson NP [address], [place], [address], [place] - Dr. Tomi Quezada 4 11:16:55 Headache 10145348 Active 2023 Maritza Mcpherson NP [address], [place], [address], [place] - Dr. Tomi Quezada 4 11:17:33 Essential hypertension 73258088 Active 2023 JESUS PIMENTEL NP [address], [place], [address], [place] - Dr. Tomi Quezada 5 16:50:08 Tooth infection 055816471 Active 2024 JESUS PIMENTEL SHIRT HEMMER [address], [place], [address], [place] - Dr. Tomi Quezada 15:56:21 Nausea and vomiting, unspecified vomiting type 16814598 Active 2024 JESUS PIMENTEL SHIRT HEMMER [address], [place], [address], [place] - Dr. Tomi Quezada 16:41:02 Motion sickness 27547679 Active 2024 JESUSDAVIDSON PIMENTEL SHIRT HEMMER [address], [place], [address], [place] - Dr. Tomi Quezada 17:26:23 Otalgia of both ears 064339054 Active 2024 JESUSDAVIDSON PIMENTEL SHIRT HEMMER [address], [place], [address], [place] - Dr. Tomi Quezada 14:21:32 [...] 024 Date of Last Mammogram completed [place] - Dr. Tomi Quezada 09/15/2024 15:01:03 024 Most Recent Mammogram completed [place] - Dr. Tomi Quezada 03/21/2024 16:45:16 024 Hospital follow up completed RAY[place] - Dr. Tomi Quezada 11/07/2023 14:38:25 023 Hospital follow up completed [place] - Dr. Tomi Quezada 02/26/2023 14:59:24 023 removal of spinal neurostimulator completed [place]LA [place] - Dr. Tomi Quezada 09/26/2022 14:48:26 016 Date of Last Pap Smear completed [place] - Dr. Tomi Quezada 09/26/2022 14:45:18 016 Total Hysterectomy completed KEYLA HERNANDEZ - Dr. Tomi Quezada 09/26/2022 14:47:29 Appendectomy completed KEYLA HERNANDEZ - Dr. Tomi Quezada 09/26/2022 14:47:36 Cholecystectomy completed KEYLA HERNANDEZ - Dr. Tomi Quezada 09/26/2022 14:47:46 tonsillectomy completed KEYLA HERNANDEZ - Dr. Toim Quezada 09/26/2022 14:47:53 Knee Surgery completed KEYLA HERNANDEZ - Dr. Tomi Quezada 09/26/2022 14:48:50 Imaging Results None recorded. Procedure Notes None recorded. Medical Equipment None Reported. Allergies Allergen ID Allergen Name Allergen Category Reaction Reaction Severity Criticality Documentation Date Start Date Code Code System Note Provider Name and Address Organization Details Recorded Time 73208 iodine medicatio n Not available Not available Not available 04/02/2025 5933 RxNorm Not Available dooub - External Data Service - prod 19:27:15 44500 prednison e medicatio n Not available Not available Not available 04/02/2025 8640 RxNorm Not Available vesna - External Data Service - prod 19:27:15 25145 codeine medicatio n Not available Not available Not available 05/05/2025 2670 RxNorm Not Available vesna - External Data Service - prod 5 13:08:55 6339 shellfish derived food,medi cation Not available Not available Not available 09/26/[address] 3 14:35:17 8619 loperamid e medicatio n Not available Not available Not available 06/25/2024 6468 RxNorm Other react ions and sever ities : 'Weal (diso rder) '. DAVID Martin Dr. 5 10:07:15 8899 ketorolac medicatio n Not available Not available Not available 08/20/2024 [address] 5 10:07:15 Medications [...] MOUTH EVERY 12 HOURS FOR 10 DAYS 12/16 /2025 completed Not Available Not Available Not Available [...] e 50 mcg/actua tion nasal spray,heriberto pension [place] 1 spray every day by intranas al [...] Last Updated DateTime 04/03/2025 165.1 cm TALITA HERNANDEZ - Dr. Tomi Quezada 1 06/03/2024 14:41:44 Social History Question Answer Notes LastModified by Organizat ion Details LastModified Time Tobacco Smoking Status Never Smoker DAVID Joseph Dr. 09/26/2022 14:46:38 Do You Have An Advance Directive? No [email or web address] Information not available 09/26/2022 If You Are , What Was Your Level Of Alcohol Consumption Prior To ? None [email or web address] Information not available 09/26/2022 What Is Your Level Of Caffeine Consumption? Occasional [email or web address] Information not available 09/26/2022 What Type Of Diet Are You Following? REGULAR [email or web address] Information not available 09/26/2022 Do You Have A Medical Power Of Garage Manager? No [email or web address] Information not available 09/26/2022 How Many Children Do You Have? 1 [email or web address] Information not available 09/26/2022 Do You Have A Patient Advocate? No Information no t available 09/26/2022 What Is Your Relationship Status? Information not available 09/26/2022 Are You Sexually Active? No [email or web address] Information not available 09/26/2022 Do You Have Difficulty Walking Or Climbing Stairs? No [email or web address] Information not available 09/26/2022 Sex: Female Functional Status Question Answer Note LastModified by Organizat ion Details LastModified Time Do you use any illicit or recreational drugs? No [email or web address] Information not available 09/26/2022 Do you or have you ever used any other forms of tobacco or nicotine? No [email or web address] Information not available 09/26/2022 What is your level of alcohol consumption? None [email or web address] Information not available 09/26/2022 Are you currently employed? No [email or web address] Information not available 09/26/2022 What is your status? Not [email or web address] Information no t available 09/26/2022 Are you able to walk independently without assistance or assistive devices? YESWOREST [email or web address] Information not available 09/26/2022 Are you able to care for yourself independently? Yes [email or web address] Information not available 09/26/2022 What is your exercise level? Occasional [email or web address] Information not available 09/26/2022 Mental Status None recorded. Family History Relationship Description Onset Age of this Age Resolved Age Notes LastModified by Organization Details LastModified Time Paternal Grandfather Malignant neoplastic disease [email or web address] Not available 2022 14:46:24 Medical History Condition [...] objection Alexx Garcia MD [address], [place], [address], [place] - Dr. Tomi Quezada 10/03/2023 18:30:12 Influenza, MDCK, quadrivalent, preservative 10/03/19 24 cancelled patient objection Alexx Garcia MD [address], [place], [address], [place] - Dr. Tomi Quezada 10/03/2023 18:30:12 COVID-19, mRNA, LNP-S, PF, 30 mcg/0.3 mL dose 06/21/19 21 completed KEYLA TAPIA null, [place] - Dr. Tomi Quezada 09/26/2022 14:36:31 COVID-19, mRNA, LNP-S, PF, 30 mcg/0.3 mL dose 07/20/19 21 completed [place]LA [place], [place] - Dr. Tomi Quezada 09/26/2022 14:36:35 Tdap 05/21/19 19 completed [place], [place] - Dr. Tomi Quezada 09/26/2022 14:49:53 Influenza, MDCK, trivalent, preservative 01/24/20 24 cancelled patient objection Maritza Mcpherson NP [address], [place], [address], [place] - Dr. Tomi Quezada 01/24/2024 17:42:28 Influenza, MDCK, trivalent, preservative 02/07/20 24 cancelled patient objection Maritza Mcpherson NP [address], [place], [address], [place] - Dr. Tomi Quezada 02/08/2024 11:15:01 Influenza, MDCK, trivalent, preservative 03/21/20 24 cancelled patient objection CHASITY WEISS [address], [place], [address], [place] - Dr. Tomi Quezada 03/21/2024 17:11:37 RSV, bivalent, protein subunit RSVpreF, diluent reconstituted, 0.5 mL, PF 03/03/20 completed DAVID Coreas - Dr. Tomi Quezada 04/03/2025 14:43:18 influenza nasal, unspecified formulation 06/06/19 completed DAVID Coreas - Dr. Tomi Quezada 04/03/2025 14:45:37 Influenza, MDCK, trivalent, PF 08/21/19 cancelled patient objection CHASITY WEISS [address], [place], [address], [facility] - Dr. Tomi Quezada 08/20/2024 10:44:31 Influenza, MDCK, trivalent, preservative 11/27/19 cancelled patient objection Carlin Patterson NP [address], [place], [address], [facility] - Dr. Tomi Quezada 11/26/2024 17:55:55 COVID-19, mRNA, LNP-S, PF, aldo-sucrose, 30 mcg/0.3 mL 11/27/19 cancelled patient objection Carlin Patterson NP [address], [place], [address], [facility] - Dr. Tomi Quezada 11/26/2024 17:55:55 Past Encounters Encounter ID Performer Location Encounter Start Date Encounter Closed Date Diagnosis/Indication Diagnosis SNOMED-CT Code Diagnosis ICD10 Code Diagnosis IMO Codes Diagnosis Note [id number] Alexx Garcia MD [facility] [address] [facility], [address] [place] [address] 03/04/2025 12:42:29 03/04/2025 14:40:23 [id number] Alexx Garcia MD [facility] [address] [facility] [address] [place] [address] 03/04/2025 15:28:27 03/04/2025 17:32:22 Screening mammography 04310147 Z12.31 12/19/2023 Screening for malignant neoplasm of colon 462917671 Z12.11 fecal 12/06/2024 Hepatitis C screening 41 4968262 Z11.59 Depression screening 171 731052 Z13.31 Immunization due 3131566 08 Z23 4206539 vaccines up to date Screening for malignant neoplasm of cervix 467307790 Z12.4 Counseling 467195592 Z71 .89 [id number] ER warnings given: patient to call 911 or go to nearest ER if severe chest pain, syncope, increased palpitatio ns, nausea, vomiting, LOC. Patinet verbalizes understand ing and agrees w plan.ER warnings given if abdominal pain, nausea, vomiting, fever, severe diarrhea, blood in stools, dark stools, blood in urine, syncope, chest pain, shortness of breath. Transition of care 23696 91953 105 Z75.8 03/02/2025 . scheduled f/u with GI on 03/16/2025 Body mass index 30+ - obesity 640400802 Z68.30 479654 30.8 Renewal of prescription 272307634 Z76.0 Infection of tooth 62841 8007 K04.7 558977 improved Low back pain 919968763 M54.50 patient requesting stronger medication s for her chronic pain- advised she needs to follow up with [facility] and have a dental assessment for mouth pain Chronic no nspecific abdominal pain 422034435 R10.9 scheduled f/u with GI on 03/16/2025 Essential hypertension 19108769 I10 pt will call cardiologi st to scheduled appt today Had extensive conversati on with pain about HTN and medication . Pt verbalized understand ing risk of uncontroll ed HTN. Pt agreed to contact cardiologi to scheduled appt. Pt will be started on amlodipine and losartan. Nausea and vomiting 1692 1999 R11.2 5097212365 Patient no ncompliance - general 617451472 Z91.199 665195 ER warnings given: patient to call 911 or go to nearest ER if severe chest pain, syncope, increased palpitatio ns, nausea, vomiting, LOC. Patinet verbalizes understand ing and agrees w plan. Had extensive conversati on with pain about HTN and medication . Pt verbalized understand ing risk of uncontroll ed HTN. Pt agreed to contact cardiologi to scheduled appt. Pt will be started on amlodipine and losartan. [id number] Alexx Garcia MD [facility] [address] [facility], [facility] [address] [place] [address] 04/03/2025 14:33:08 04/03/2025 17:42:55 Screening mammography 90811931 Z12.31 12/19/2023 order given 03/04/2025 Screening for malignant neoplasm of colon 434958041 Z12.11 fecal 12/06/2024 Hepatitis C screening 41 1040029 Z11.59 11/26/2024 Depression screening 171 131829 Z13.31 Immunization due 7079816 08 Z23 8408040 vaccines up to date Screening for malignant neoplasm of cervix 399125234 Z12.4 Counseling 222970099 Z71 .89 36950177 ER warnings given: patient to call 911 or go to nearest ER if severe chest pain, syncope, increased palpitatio ns, nausea, vomiting, LOC. Patinet verbalizes understand ing and agrees w plan.ER warnings given if abdominal pain, nausea, vomiting, fever, severe diarrhea, blood in stools, dark stools, blood in urine, syncope, chest pain, shortness of breath. Renewal of prescription 154325384 Z76.0 promethazi ne 25mgtizani dine 2 and 4 mgscopolam ine 1mg over 3 days transderma l patches Nausea and vomiting 1693 1999 R11.2 Low back pain 495056176 M54.50 patient requesting stronger medication s for her chronic pain- advised she needs to follow up with [facility] and have a dental assessment for mouth pain Motion sickness 20878659 T75.3XXA Essential hypertension 97202703 I10 pt will call cardiologi st to [...] ID Guarantor Name 04/03/2025 1 [employer] (O) [id number] Kasia Barber [id number] Kasia Barber Notes Date Note Type Note [...] changes since last visit pt went to [place] on 02/28/2025-02/27/1403/03/2025 abd pain - no changes [...] dental treatmentcould not get imaging performed at [facility] imaging or professional radiology- will [...] severe pain.Pt denies chest pain, palpitations, dyspnea. 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 Pt agreed to contact registration clerk to scheduled appt. Pt will be started on amlodipine and losartan. Pancreatitis history/chronic pancreatitisH[facility] (request record)Patient went back to [facility] 06/08/2024-06/15/2024 for pancreatitis pain again. Always [...] management 4 days agof/u [facility] GI [facility] Dr. Gamble 11/2024 Syncope history--has not recurredsuggested [...] recent [facility]ceno [facility] and [facility]'t feel like needs medications at this timereports just having problems sleeping--would like something to help her sleep JESUS PIMENTEL SHIRT HEMMER [address], [place], [address], [place] - Dr. Tomi Quezada 04/03/2025 17:28:12 OBGyn Episode No OBEpisode recorded.
--- OUTSIDE RECORDS SUMMARY | 2025-05-18 16:30 | XMS_ITS | Patient Health Record ---
Author Organization [facility] Address [address] [place] [address] Care Team Providers Care Personal Injury Specialist Name Role Phone DR DEBBIE ARRIAGA Primary Care Provider MANA Chavez Unavailable [phone] ANDREINA SKELTON Unavailable Unavailable Allergies No Known Allergies Reason For Referral No Information Medications Medication SIG (Take, Route, Frequency, Duration) Notes Start Date End Date Status Gabapentin Unknown [place] Unknown Social History Section Notes: Non-contributory Non-contributory Problems Problem Type SNOMED Code ICD Code Onset Dates Problem Status W/U Status Risk Notes Problem Chronic pain syndrome (130855555) Chronic pain syndrome (G89.4) Active confirmed Problem Mechanical complication of nervous system device, implant AND/OR graft (32529579) Breakdown (mechanical) of implanted electronic neurostimulator , generator, initial encounter (T85.113A) Active confirmed Problem Low back pain (384435902) Low back pain, unspecified (M54.50) Active confirmed Plan Of Treatment Pending Test Test Name Order Date Chest X-ray PA and lateral 07/06/2022 Urinalysis, Routine 07/19/2022 PTT, Activated 07/19/2022 CBC, Platelet; No Differential 3 Basic Metabolic Panel (8) 07/19/2022 EKG 07/06/2022 PT/PTT w/INR 07/19/2022 Insurance Providers Payer Name Payer Address Payer Phone Subscriber Number Group Number Insured Name Patient Relationship to Insured Coverage Start Date Coverage End Date [employer] [address] [address] [place] [address] [id number] Kasia Barber Self - patient is the insured 02/01/202 3 Medical (General) History Medical History History ICD Code Nausea Vomiting Dizziness Surgical History Surgery Date(Month/Year) SCS implant @ [facility]- Dr Rogelio Farooq 03/2022 D/C SCS @[facility] - Dr. Duong 023
--- OUTSIDE RECORDS SUMMARY | 2025-05-18 16:30 | XMS_ITS | Continuity of Care Document ---
Author Organization [place] - Dr. Tomi Quezada, [facility] [place] Address [address] Andrey GALINDO [address] [place] [address] Care Team Providers Care Music Manager Name Role Phone [facility] Pain Management Assessment No assessment recorded. [...] Address Organization Details Recorded Time Acute pancreatitis 120041105 Active DAVID Solano - Dr. Tomi Quezada 5 16:24:31 Restless legs syndrome 63221818 DAVID Funez - Dr. Tomi Quezada 5 16:24:31 Migraine 40664776 Active DAVID Solano - Dr. Tomi Quezada 5 16:24:31 Simple obesity 696965270 DAVID Funez Dr. 5 16:24:31 Chronic pancreatitis 412720886 Active 2022 JESUS PIMENTEL NP [address], [place], [address], [place] - Dr. Tomi Quezada 5 15:56:21 Mixed hyperlipidemia 247531120 Active 2022 DAVID Terrell - Dr. Tomi Quezada 3 16:50:12 Vitamin B12 deficiency (non anemic) 28692334 Active 2022 JERROD lutz [place] - Dr. Tomi Quezada 3 16:50:13 Conjunctivitis 8553287 Active 2022 Alexx Garcia MD [address], [place], [address], [place] - Dr. Tomi Quezada 3 13:12:09 Chronic nonspecific abdominal pain 650297756 Active 2022 JESUS PIMENTEL NP [address], [place], [address], [place] - Dr. Tomi Quezada 5 16:51:48 Opioid dependence 98660314 Active 2022 Tomi Quezada MD [address], [place], [address], [place] - Dr. Tomi Quezada 21:55:27 Benzodiazepine dependence 582174943 Active 2022 Tomi Quezada MD [address], [place], [address], [place] - Dr. Tomi Quezada 3 21:55:46 Low back pain 260980593 Active 2023 JESUS PIMENTEL NP [address], [place], [address], [place] Dr. Tomi Quezada 5 15:56:21 Tachycardia 2520655 Active 2023 Maritza Mcpherson NP [address], [place], [address], [place] - Dr. Tomi Quezada 4 17:47:04 Seizure disorder 612580832 Active 2023 Maritza Mcpherson NP [address], [place], [address], [place] - Dr. Tomi Quezada 4 11:16:55 Headache 19843769 Active 2023 Maritza Mcpherson NP [address], [place], [address], [place] - Dr. Tomi Quezada 4 11:17:33 Essential hypertension 67490643 Active 2023 JESUS COLBERTVINO COLLAR SETTER [address], [place], [address], [place] - Dr. Tomi Quezada 16:50:08 Tooth infection 775915119 Active 2024 JESUS PIMENTEL COLLAR SETTER [address], [place], [address], [place] Dr. Tomi Quezada 15:56:21 Nausea and vomiting, unspecified vomiting type 98424363 Active 2024 JESUS COLBERTVINO COLLAR SETTER [address], [place], [address], [place] - Dr. Tomi Quezada 16:41:02 Motion sickness 75922179 Active 2024 JESUS COLBERTVINO COLLAR SETTER [address], [place], [address], [place] - Dr. Tomi Quezada 17:26:23 Otalgia of both ears 611684228 Active 2024 JESUS COLBERTVINO COLLAR SETTER [address], [place], [address], [place] - Dr. Tomi Quezada [...] Mammogram completed Lor HERNANDEZ - Dr. Tomi uQezada 09/15/2024 15:01:03 024 Most Recent Mammogram completed [...] Name and Address Organization Details Recorded Time 53764 iodine medicatio n Not available Not available Not available 04/02/2025 5933 RxNorm Not Available [facility] - External Data Service - prod 19:27:15 20039 prednison e medicatio n Not available Not available Not available 04/02/2025 8640 RxNorm Not Available [facility] - External Data Service - prod 5 19:27:15 47616 codeine medicatio n Not available Not available Not available 05/05/2025 2670 RxNorm Not Available [facility] - External Data Service - prod 5 [...] Not available Not available Not available 08/20/2024 47184 RxNorm DAVID Martin - Dr. Tomi Quezada [...] e 50 mcg/actua tion nasal spray,heriberto pension Den[place] 1 spray every day by intranas al [...] Updated DateTime 03/04/2025 165.1 cm 30.8 kg/m2 98004.59 g 165.1 cm 30.8 kg/m2 88637.5 9 g BRIANA HERNANDEZ - Dr. Tomi Quezdaa 15:33:53 Social History Question Answer Notes LastModified by Organizat ion Details LastModified Time Tobacco Smoking Status Never Smoker DAVID Joseph Dr. 09/26/2022 14:46:38 Do You Have An Advance Directive? No [email or web address] Information not available 09/26/2022 If You Are , What Was Your Level Of Alcohol Consumption Prior To ? None [email or web address] Information not available 09/26/2022 What Is Your Level Of Caffeine Consumption? Occasional [email or web address] Information not available 09/26/2022 What Type Of Diet Are You Following? REGULAR Information not available 09/26/2022 Do You Have A Medical Power Of Nailer Operator? No [email or web address] Information not available 09/26/2022 How Many Children Do You Have? 1 [email or web address] Information not available 09/26/2022 Do You Have A Patient Advocate? No Information no t available 09/26/2022 What Is Your Relationship Status? [email or web address] Information not available 09/26/2022 Are You Sexually Active? No [email or web address] Information not available 09/26/2022 Do You Have Difficulty Walking Or Climbing Stairs? No [email or web address] Information not available 09/26/2022 Sex: Female Functional Status Question Answer Note LastModified by Organizat ion Details LastModified Time Do you use any illicit or recreational drugs? No [email or web address] Information not available 09/26/2022 Do you or have you ever used any other forms of tobacco or nicotine? No [email or web address] Information not available 09/26/2022 What is your level of alcohol consumption? None [email or web address] Information not available 09/26/2022 Are you currently employed? No [email or web address] Information not available 09/26/2022 What is your status? Not Information no t available 09/26/2022 Are you able to walk independently without assistance or assistive devices? YESWOREST [email or web address] Information not available 09/26/2022 Are you able to care for yourself independently? Yes [email or web address] Information not available 09/26/2022 What is your exercise level? Occasional [email or web address] Information not available 09/26/2022 Mental Status None [...] dose, aldo-sucrose 10/03/19 24 cancelled patient objection lAexx Garcia MD [address], [place], [address], [place] - Dr. Tomi Quezada 10/03/2023 18:30:12 Influenza, MDCK, quadrivalent, preservative 10/03/19 24 cancelled patient objection Alexx Garcia MD [address], [place], [address], [place] - Dr. Tomi Quezada 10/03/2023 18:30:12 COVID-19, mRNA, LNP-S, PF, 30 mcg/0.3 mL dose 06/21/19 21 completed KEYLA TAPIA null, [place] - Dr. Tomi Quezada 09/26/2022 14:36:31 COVID-19, mRNA, LNP-S, PF, 30 mcg/0.3 mL dose 07/20/19 21 completed KEYLA TAPIA null, [place] - Dr. Tomi Quezada 09/26/2022 14:36:35 Tdap 05/21/19 19 completed KEYLA TAPIA nelda, [place] - Dr. Tomi Quezada 09/26/2022 14:49:53 Influenza, MDCK, trivalent, preservative 01/24/20 24 cancelled patient objection Maritza Mcpherson NP [address], [place], [address], [place] - Dr. Tomi Quezada 01/24/2024 17:42:28 Influenza, MDCK, trivalent, preservative 02/07/20 24 cancelled patient objection Maritza Mcpherson NP [address], [place], [address], [place] - Dr. Tomi Quezada 02/08/2024 11:15:01 Influenza, MDCK, trivalent, preservative 03/21/20 24 cancelled patient objection CHASITY WEISS [address], [place], [address], [place] - Dr. Tomi Quezada 03/21/2024 17:11:37 RSV, bivalent, protein subunit RSVpreF, diluent reconstituted, 0.5 mL, PF 03/03/20 completed DAVID Coreas - Dr. Tomi Quezada 04/03/2025 14:43:18 influenza nasal, unspecified formulation 06/06/19 completed DAVID Coreas - Dr. Tomi Quezada 04/03/2025 14:45:37 Influenza, MDCK, trivalent, PF 08/21/19 25 cancelled patient objection CHASITY WEISS [address], [place], [address], [place] - Dr. Tomi Quezada 08/20/2024 10:44:31 Influenza, MDCK, trivalent, preservative 11/27/19 25 cancelled patient objection Carlin Patterson NP [address], [place], [address], [place] - Dr. Tomi Quezada 11/26/2024 17:55:55 COVID-19, mRNA, LNP-S, PF, aldo-sucrose, 30 mcg/0.3 mL 11/27/19 25 cancelled patient objection Carlin Patterson NP [address], [place], [address], [place] - Dr. Tomi Quezada 11/26/2024 17:55:55 Past Encounters Encounter ID Performer Location Encounter Start Date Encounter Closed Date Diagnosis/Indication Diagnosis SNOMED-CT Code Diagnosis ICD10 Code Diagnosis IMO Codes Diagnosis Note [id number] Alexx Garcia MD [facility] [id number] [place] [address], [facility] [address] [place] [address] 02/02/2025 13:34:49 02/02/2025 15:52:38 Screening mammography 78740496 Z12.31 has order from 01/30/2025 Screening for malignant neoplasm of colon 316791459 Z12.11 FIT 11/2024 - colonoscop y has order from 11/2024 Depression screening 171 737339 Z13.31 Immunization due 1283573 08 Z23 4886149 Counseling 917787123 Z71 .89 [id number] Patient was seen in dental clinic 02/02/2025 [...] be ordered on 02/02/2025 Renewal of prescription 053074460 Z76.0 Infection of tooth 75733 8007 K04.7 403482 Chronic pancreatitis 235 770863 K86.1 Low back pain 474202304 M54.50 patient requesting stronger medication s for her chronic pain- advised she needs to follow up with painting manager and have a dental assessment for mouth pain [id number] Alexx Garcia MD [facility] [address] [address] 03/04/2025 12:42:29 03/04/2025 14:40:23 [id number] Alexx Garcia MD [facility] [id number] [place] [address], [facility] [address] [place] [address] 03/04/2025 15:28:27 03/04/2025 17:32:22 Screening mammography 33692551 Z12.31 12/19/2023 Screening for malignant neoplasm of colon 187529200 Z12.11 fecal 12/06/2024 Hepatitis C screening 41 9004625 Z11.59 Depression screening 171 809487 Z13.31 Immunization due 6479631 08 Z23 0189816 vaccines up to date Screening for malignant neoplasm of cervix 507657100 Z12.4 Counseling 963509939 Z71 .89 [id number] ER warnings given: patient to call 911 or go to nearest ER if severe chest pain, syncope, increased palpitatio ns, nausea, vomiting, LOC. Patinet verbalizes understand ing and agrees w plan.ER warnings given if abdominal pain, nausea, vomiting, fever, severe diarrhea, blood in stools, dark stools, blood in urine, syncope, chest pain, shortness of breath. Transition of care 38277 14389 105 Z75.8 03/02/2025 . scheduled f/u with GI on 03/16/2025 Body mass index 30+ - obesity 817818962 Z68.30 049246 30.8 Renewal of prescription 870878396 Z76.0 Infection of tooth 82721 8007 K04.7 786252 improved Low back pain 592807270 M54.50 patient requesting stronger medication s for her chronic pain- advised she needs to follow up with painting manager and have a dental assessment for mouth pain Chronic no nspecific abdominal pain 125936729 R10.9 scheduled f/u with GI on 03/16/2025 Essential hypertension 00009500 I10 pt will call cardiologi st to scheduled appt today Had extensive conversati on with pain about HTN and medication . Pt verbalized understand ing risk of uncontroll ed HTN. Pt agreed to contact cardiologi st to scheduled appt. Pt will be started on amlodipine and losartan. Nausea and vomiting 1692 1999 R11.2 3062621117 Patient no ncompliance - general 545393178 Z91.199 623751 ER warnings given: patient to call 911 [...] ID Guarantor Name 03/04/2025 1 [employer] (O) [id number] Kasia Barber [id number] Kasia Barber Notes Date Note Type Note Provider Name and Address Organization Details Recorded Time 5 text/htm l Transition Care ManagementReported by PatientHPIFor timing, patient reportsdate of discharge: (01/30/2025). For facility, patient reportsdischarged to: (home). For current caregivers, patient reportsself. For lym-wdfu-eq-face services performed, patient reportsnot medically indicated. For [...] in the medical record. pt went to [facility] on 02/28/2025-02/27/1403/03/2025 abd painpt report symptoms are [...] dental treatmentcould not get imaging performed at [facility] or professional radiology- will send STAT order to [facility] 02/02/2025patient has had 3x ER visit [...] severe pain.Pt denies chest pain, palpitations, dyspnea. 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 Pt agreed to contact power house control room operator to scheduled appt. Pt will be started on amlodipine and losartan. Pancreatitis history/chronic pancreatitisHospitalized at [facility] from 05/24/2024-06/04/2024 (request record)Patient went back to [facility] 06/08/2024-06/15/2024 for pancreatitis pain again. Always [...] management 4 days agof/u with GI at [facility] Dr. Gamble 11/2024 Syncope history--has not recurredsuggested [...] recent [facility] and doesn't feel like needs medications at this timereports just having problems sleeping--would like something to help her sleep JESUS PIMENTEL NP [address], [place], [address], [place] - Dr. Tomi Quezada 03/04/2025 16:57:19 5 text/htm l not seen- had to reschedule Maritza Mcpherson NP [address], [place], [address], [place] - Dr. Tomi Quezada 03/04/2025 14:40:22 OBGyn Episode No OBEpisode recorded.
--- OUTSIDE RECORDS SUMMARY | 2025-05-18 16:30 | XMS_ITS | Patient Health Record ---
Author Organization [facility] Address [address] [facility] [address] [place], [place] [id number] Care Team Providers Care Fruit Harvest Machine Operator Name Role Phone Migration, Provider Unavailable Unavailable Reason For Referral No Information Encounters Encounter Location Date Provider Diagnosis [facility] [address] [facility] [address] [place], [place] [id number] 01/03/2025 Provider Migration [facility] [address] [facility] [address] [place], [place] [id number] 01/04/2025 Provider Migration Plan Of Treatment No Information Insurance Providers Payer Name Payer Address Payer Phone Subscriber Number Group Number Insured Name Patient Relationship to Insured Coverage Start Date Coverage End Date [facility] [employer] [address] [place] [address] [id number] CHETNA ALEMAN Self - patient is the insured
--- OUTSIDE RECORDS SUMMARY | 2025-05-18 16:31 | XMS_ITS | Continuity of Care Document ---
Author Organization [place] - Dr. Tomi Quezada, [facility] Address [address] [address] Care Team Providers Care Clinical Laboratory Technologist Name Role Phone [facility] Pain Management Assessment No assessment recorded. Plan of Treatment Reminders Order Date Submit Date Provider Last Modified By Organization Details Last Modified Time Details Appointments None recorded. Lab fecal occult blood, immunoassa y, stool 2024 025 [email or web address] [facility], [address] [place] [address] , [address], [place], [address], 5 04:17:28 Referral gastroente rologist referral 2024 025 [email or web address] Not available 16:01:31 Procedures None recorded. Surgeries None recorded. Imaging MAMMO, screening, bilateral 2024 025 [email or web address], [address], [address], [place], [address], 5 15:01:15 Medication Orders fluticason e propionate 50 mcg/actuat ion nasal spray,susp ension 2024 025 Doujiao [facility] #[id number], [address] [place], [address], 5 14:27:21 amoxicilli n 875 mg-potassi um clavulanat e 125 mg tablet 2024 025 VESNA [facility] #[id number], [address] [place], [address], 14:27:21 Patient TargetsNo targets recorded. Patient Instructions Encounter Date Encounter Id Patient Instructions Last Modified By Organization Details Last Modified Time 05/05/2025 [id number] individual counseling* VESNA Not available 05/05/2025 16:20:05 Reason for Referral Legislative Analyst Referral for Screening for malignant neoplasm of colon Referring Physician: Lourdes Coleman, Family Medicine, Encounter Date: 05/05/2025 Results Created Date Observation Date Name Description Value Unit Range Abnormal Flag Note LastModifiedBy Organization Detail LastModifiedTime 05/05/2005/05/2025 indiv idual couns eling * patient counseled Not Available Primar y [facility] [id number] [place] [address], [id number], 05/05/2025 13:57:40 Result Notes None recorded. Problems Name Problem SNOMED Code Status Onset Date Resolution Date Notes Provider Name and Address Organization Details Recorded Time Acute pancreatitis 404572262 Active PARAS lutz [place] - Dr. Tomi Quezada 5 16:24:31 Restless legs syndrome 72807078 Active DAVID Solano - Dr. Tomi Quezada 5 16:24:31 Migraine 17173880 Active DAVID Solano - Dr. Tomi Quezada 5 16:24:31 Simple obesity 202578800 Active DAVID Solano - Dr. 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 Tomi Quezada 5 15:56:21 Mixed hyperlipidemia 382419916 Active 2022 DAVID Terrell - Dr. Tomi Quezada 3 16:50:12 Vitamin B12 deficiency (non anemic) 98304884 Active 2022 DVAID Terrell - Dr. Tomi Quezada 3 16:50:13 Conjunctivitis 7186469 Active 2022 Alexx Garcia MD [address], [place], [address], [place] - Dr. Tomi Quezada 3 13:12:09 Chronic nonspecific abdominal pain 176225793 Active 2022 LOURDES COLEMAN NP [address], [place], [address], [place] - Dr. Tomi Quezada 5 16:51:48 Opioid dependence 94066612 Active 2022 Tomi Quezada MD [address], [place], [address], [place] - Dr. Tomi Quezada 21:55:27 Benzodiazepine dependence 062351279 Active 2022 Tomi Quezada MD [address], [place], [address], [place] - Dr. Tomi Quezada 21:55:46 Low back pain 787180925 Active 2023 LOURDES COLEMAN NP [address], [place], [address], [place] - Dr. Tomi Quezada 15:56:21 Tachycardia 1911002 Active 2023 Maritza Mcpherson NP [address], [place], [address], [place] - Dr. Tomi Quezada 4 17:47:04 Seizure disorder 455321999 Active 2023 Maritza Mcpherson NP [address], [place], [address], [place] - Dr. Tomi Quezada 4 11:16:55 Headache 75992866 Active 2023 Maritza Mcpherson NP [address], [place], [address], [place] - Dr. Tomi Quezada 4 11:17:33 Essential hypertension 02345754 Active 2023 LOURDES COLEMAN NP [address], [place], [address], [place] - Dr. Tomi Quezada 16:50:08 Tooth infection 150901474 Active 2024 LOURDES COLEMAN ACC[employer] EXEC[employer] [address], [place], [address], [place] - Dr. Tomi Quezada 15:56:21 Nausea and vomiting, unspecified vomiting type 86747630 Active 2024 LOURDES COLEMAN ACCOUNT EXEC[employer] [address], [place], [address], [place] - Dr. Tomi Quezada 16:41:02 Motion sickness 49141318 Active 2024 LOURDES COLEMAN [employer]EC[employer] [address], [place], [address], [place] - Dr. Tomi Quezada 17:26:23 Otalgia of both ears 192022908 Active 2024 LOURDES COLEMAN [employer] EXEC[employer] [address], [place], [address], [place] - Dr. Tomi Quezada 14:21:32 [...] Name and Address Organization Details Recorded Time 03281 iodine medicatio n Not available Not available Not available 04/02/2025 5933 RxNorm Not Available [employer] - prod 19:27:15 07131 prednison e medicatio n Not available Not available Not available 04/02/2025 8640 RxNorm Not Available [employer] - prod 19:27:15 60767 codeine medicatio n Not available Not available [...] Not available Not available Not available 08/20/2024 35953 RxNorm DAVID Martin - Dr. Tomi Quezada [...] e 50 mcg/actua tion nasal spray,heriberto pension [place] 1 spray every day by intranas al [...] Available Not Available No t Available buprenorp [place] 15 mcg/hour weekly transderm al patch APPLY [...] Updated DateTime 05/05/2025 165.1 cm 30.8 kg/m2 62425.59 g BRIANA Quezada 05/05/2025 13:59:43 Social History Question Answer Notes LastModified by Organizat ion Details LastModified Time Tobacco Smoking Status Never Smoker DAVID Joseph Dr. 09/26/2022 14:46:38 Do You Have An Advance Directive? No [email or web address] Information not available 09/26/2022 If You Are , What Was Your Level Of Alcohol Consumption Prior To ? None Information not available 09/26/2022 What Is Your Level Of Caffeine Consumption? Occasional [email or web address] Information not available 09/26/2022 What Type Of Diet Are You Following? REGULAR [email or web address] Information not available 09/26/2022 Do You Have A Medical Power Of Sausage Cooker? No [email or web address] Information not available 09/26/2022 How Many Children Do You Have? 1 [email or web address] Information not available 09/26/2022 Do You Have A Patient Advocate? No Information no t available 09/26/2022 What Is Your Relationship Status? [email or web address] Information not available 09/26/2022 Are You Sexually Active? No [email or web address] Information not available 09/26/2022 Do You Have Difficulty Walking Or Climbing Stairs? No Information not available 09/26/2022 Sex: Female Functional Status Question Answer Note LastModified by Organizat ion Details LastModified Time Do you use any illicit or recreational drugs? No [email or web address] Information not available 09/26/2022 Do you or have you ever used any other forms of tobacco or nicotine? No [email or web address] Information not available 09/26/2022 What is your level of alcohol consumption? None [email or web address] Information not available 09/26/2022 Are you currently employed? No [email or web address] Information not available 09/26/2022 What is your status? Not [email or web address] Information no t available 09/26/2022 Are you able to walk independently without assistance or assistive devices? [email or web address] Information not available 09/26/2022 Are you able to care for yourself independently? Yes [email or web address] Information not available 09/26/2022 What is your exercise level? Occasional [email or web address] Information not available 09/26/2022 Mental Status None recorded. Family History Relationship Description Onset Age of this Age Resolved Age Notes LastModified by Organization Details LastModified Time Paternal Grandfather Malignant neoplastic disease [email or web address] Not available 2022 14:46:24 Medical History Condition [...] objection Alexx Garcia MD [address], [place], [address], [place] - Dr. Tomi Quezada 10/03/2023 18:30:12 Influenza, MDCK, quadrivalent, preservative 10/03/19 24 cancelled patient objection Alexx Garcia MD [address], [place], [address], [place] - Dr. Tomi Quezada 10/03/2023 18:30:12 [...] objection Maritza Mcpherson NP [address], [place], [address], [place] - Dr. Tomi Quezada 01/24/2024 17:42:28 Influenza, MDCK, trivalent, preservative 02/07/20 24 cancelled patient objection Maritza Mcpherson NP [address], [place], [address], [place] - Dr. Tomi Quezada 02/08/2024 11:15:01 Influenza, MDCK, trivalent, preservative 03/21/20 24 cancelled patient objection CHASITY WEISS [address], [place], [address], [place] - Dr. Tomi Quezada 03/21/2024 17:11:37 RSV, bivalent, protein subunit RSVpreF, diluent reconstituted, 0.5 mL, PF 03/03/20 completed DAVID Coreas - Dr. Tomi Quezada 04/03/2025 14:43:18 influenza nasal, unspecified formulation 06/06/19 completed TALITA lutz [place] - Dr. Tomi Quezada 04/03/2025 14:45:37 Influenza, MDCK, trivalent, PF 08/21/19 25 cancelled patient objection CHASITY WEISS [address], [place], [address], [place] - Dr. Tomi Quezada 08/20/2024 10:44:31 Influenza, MDCK, trivalent, preservative 11/27/19 25 cancelled patient objection Carlin Patterson NP [address], [place], [address], [place] - Dr. Tomi Quezada 11/26/2024 17:55:55 COVID-19, mRNA, LNP-S, PF, aldo-sucrose, 30 mcg/0.3 mL 11/27/19 25 cancelled patient objection Carlin Patterson NP [address], [place], [address], [place] - Dr. Tomi Quezada 11/26/2024 17:55:55 Past Encounters Encounter ID Performer Location Encounter Start Date Encounter Closed Date Diagnosis/Indication Diagnosis SNOMED-CT Code Diagnosis ICD10 Code Diagnosis IMO Codes Diagnosis Note [id number] Alexx Garcia MD [facility] [id number] [place] [address], [address] [place] [address] 05/05/2025 13:07:17 05/05/2025 15:01:15 Screening mammography 36676864 Z12.31 12/19/2023 order given 03/04/2025 Screening for malignant neoplasm of colon 176186839 Z12.11 fecal 12/06/2024 Hepatitis C screening 41 7771530 Z11.59 11/26/2024 Depression screening 171 019104 Z13.31 Immunization due 9990955 08 Z23 1869394 vaccines up to date Screening for malignant neoplasm of cervix 539936215 Z12.4 Counseling 161206974 Z71 .89 [id number] ER warnings given: patient to call 911 or go to nearest ER if severe chest pain, syncope, increased palpitatio ns, nausea, vomiting, LOC. Patinet verbalizes understand ing and agrees w plan.ER warnings given if abdominal pain, nausea, vomiting, fever, severe diarrhea, blood in stools, dark stools, blood in urine, syncope, chest pain, shortness of breath. Body mass index 30+ - obesity 384277995 Z68.30 720975 30.8 Bilateral earache 166410 003 H92.03 [id number] Recommende d acetaminop hen/ibupro fen PRN pain/fever Follow up as below. Essential hypertension 97965941 I10 pt will call cardiologi st to [...] Lamar Member ID Guarantor Name 05/05/2025 1 [employer] (O) [id number] Kasia Sunil [id number] Kasia Barber Notes Date Note Type Note Provider Name and Address Organization Details Recorded Time 5 text/htm l Ear Pain Brief HPIReported [...] yesterday, sinus drainage, facial pressure.pt visiting in [place] for holidays. pt reports did not get [...] last visit prior visits: pt went to [place] on 02/28/2025-02/27/1403/03/2025 abd pain - no changessinus [...] dental treatmentcould not get imaging performed at [facility] or [facility]- will send [...] severe pain.Pt denies chest pain, palpitations, dyspnea. 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 Pt agreed to contact electrologist to scheduled appt. Pt will be started on amlodipine and losartan. Pancreatitis history/chronic pancreatitisHospitalized [facility] (request record)Patient went back to [facility] 06/08/2024-06/15/2024 for pancreatitis pain again. [...] management 4 days agof/u [place] [facility] [place] Gam[place] 11/2024 Syncope history--has not recurredsuggested [...] [facility] and doesn't feel like needs medications at this timereports just having problems sleeping--would like something to help her sleep LOURDES COLEMAN ACCOUNT EXECUTIVE [employer] [address], [place], [address], [place] - Dr. Tomi Quezada 05/05/2025 14:28:10 OBGyn Episode No OBEpisode recorded.
--- NOTE | 2025-05-18 17:04 | ED_ITS ---
<Statement entered by Nicolas Pak MD - 05/18/25 22:22> Nicolas Pak MD: I was consulted by the MERC[facility], and we discussed the complexity of the problems being addressed. I approve the treatment and management plan for this patient's care in the emergency department, thus performing a substantive portion of the medical decision making. Discharge Plan Disposition Patient Disposition: Home, Self-Care Condition: Good Prescriptions Prescriptions: New hydrocodone-acetaminophen 5-325 mg tablet 1 tab PO Q6H PRN (Reason: pain) Qty: 12 0RF No Action epinephrine [EpiPen 2-Luis] 0.3 mg/0.3 mL auto-injector 0.3 mg IM Q5-15M PRN (Reason: anaphylaxis) Qty: 2 0RF Rx Instructions: do not exceed 3 doses per episode tizanidine 4 mg tablet 4 mg PO Q6H PRN (Reason: Pain (Scale Score 4-6)) scopolamine base 1 mg over 3 days patch 3 day 1 patch transdermal 2XW acetaminophen-codeine 300-30 mg tablet 1 tab PO QID amlodipine 5 mg tablet 5 mg PO BID losartan 100 mg tablet 100 mg PO DAILY pregabalin 200 mg capsule 200 mg PO BID sucralfate 1 gram tablet 1 g PO ACHS 30 Days Qty: 120 0RF hydrocodone-acetaminophen 5-325 mg tablet 1 tab PO Q4H PRN (Reason: pain) 3 Days Qty: 15 0RF Relistor 150 mg tablet 450 mg PO DAILY Qty: 90 12RF Rx Instructions: Please take 3 tablets by mouth daily hydrocodone-acetaminophen 5-325 mg Tablet 1 tab PO Q6HP PRN (Reason: Mild To Moderate Pain (1-6)) Qty: 12 0RF metoclopramide HCl 10 mg Tablet 10 mg PO AC 14 Days Qty: 42 0RF Creon 36,000-114,000- 180,000 unit Capsule,Delayed Release(Dr/Ec) 2 cap PO AC 30 Days Qty: 180 0RF cyclobenzaprine 10 mg tablet 10 mg PO HS PRN (Reason: muscle spasm) 30 Days Qty: 0 0RF pantoprazole 40 mg tablet,delayed release (DR/EC) 40 mg PO DAILY Qty: 30 0RF promethazine 25 mg tablet 25 mg PO Q6H PRN (Reason: nausea and vomiting) Qty: 12 0RF Referrals Follow up/Referrals: Yoseph Dee MD [Nurse Practitioner, Pain Management] - See instructions Provider,Corin, [Primary Care Provider, Medical] - See instructions Activity Restrictions/Add. Instructions Additional Instructions/Restrictions: You were seen in the emergency department and given IV pain medicine and IV fluids for abdominal pain relief. Additionally, pain medication was sent to your pharmacy of choice. Please take these only as needed. A referral to pain management in [facility] has been included in these discharge instructions. Please reach out to them soon as possible. Return to the emergency department with any worsening of current complaints such as increased nausea and vomiting, diarrhea with fever, or any other emergent medical complaint or concern. Clinical Impressions Clinical Impression: Chronic pancreatitis, Chronic abdominal pain Instructions Patient Instructions: DI for Acute Abdominal Pain Print Language Print Language: Icelandic Discharge ED Provider: Nicolas Pak Adult HPI General Chief complaint: Abdominal Pain Stated complaint: vomiting with blood,stomach Pain Time Seen by Provider: 05/18/25 16:23 Mode of Arrival: Ambulatory Source of Information: Patient Description of Symptoms (Recalled from ER Triage Doc. by RN): pt to the ED with middle abdominal pain and vomiting since last night. pt has a history of pancreatitis. History of Present Illness HPI narrative: Patient is an anxious and ill-appearing 44-year-old female who presents to the emergency department with complaints of abdominal pain with nausea and vomiting, including vomiting some blood. Patient describes this as being like previous exacerbation of what she calls pancreas stones. States the nausea, vomiting, and pain began last night and she has noticed more and more blood with each episode of vomiting overnight and through the day. Patient denies any recent fever, denies diarrhea, and denies any other illness or injury. Related Data Home Medications ?Medication ?Instructions ?Recorded ?Confirmed scopolamine base 1 mg over 3 days 1 patch transdermal 2XW 04/04/25 04/22/25 transdermal patch tizanidine 4 mg tablet 4 mg PO Q6H PRN Pain (Scale Score 04/04/25 04/22/25 4-6) acetaminophen 300 mg-codeine 30 mg 1 tab PO QID 04/22/25 tablet amlodipine 5 mg tablet 5 mg PO BID 04/15/25 5 Held on 04/23/25. Instructions: Resume on 04/30/25. losartan 100 mg tablet 100 mg PO DAILY 04/15/2508/12 Held on 04/23/25. Instructions: Your blood pressures have been stable here without this medication. Please restart this medication if your systolic blood pressure is consistently above 150, otherwise follow-up with your PCP for further discussion about restarting medication. pregabalin 200 mg capsule 200 mg PO BID 04/15/2504/22 Previous Rx's ?Medication ?Instructions ?Recorded epinephrine 0.3 mg/0.3 mL 0.3 mg (0.3 mL) IM Q5-15M IN N 05/16/21 injection, auto-injector (EpiPen anaphylaxis #2 ea 2-Luis) pantoprazole 40 mg tablet,delayed 40 mg PO DAILY #30 t abs 05/15/24 release promethazine 25 mg tablet 25 mg PO Q6H PRN nausea and 05/15/24 vomiting #12 tabs hydrocodone 5 mg-acetaminophen 325 1 tab PO Q4H PRN pa in 3 days #15 04/16/25 mg tablet tabs sucralfate 1 gram tablet 1 g PO ACHS 30 days #120 tab s 04/16/25 Relistor 150 mg tablet 450 mg (3 x 150 mg) PO DAILY #90 04/22/25 (methylnaltrexone) tabs cyclobenzaprine 10 mg tablet 10 mg PO HS PRN muscle sp asm 30 04/23/25 days #0 tabs hydrocodone 5 mg-acetaminophen 325 1 tab PO Q6HP PRN M ild To Moderate 04/23/25 mg tablet Pain (1-6) #12 tabs [id number] 2 cap PO AC 30 days #180 cap s 04/23/25 (pork)36,000-114,000-180k unit capsule,del rel (Creon) metoclopramide HCl 10 mg tablet 10 mg PO AC 14 days #4 2 tabs 04/23/25 hydrocodone 5 mg-acetaminophen 325 1 tab PO Q6H PRN pa in #12 tabs 05/18/25 mg tablet Allergies Allergy/AdvReac Type Severity Reaction Status Date / Time Iodinated Contrast Media Allergy Severe Anaphylaxis Verified 04/04/25 11:27 (IODINATED CONTRAST MEDIA - IV DYE) codeine (CODEINE) Allergy Unknown SWELLING Verified 04/04/25 11:27 iodine (IODINE) Allergy Unknown Anaphylaxis Verified 04/04/25 11:27 loperamide (LOPERAMIDE) Allergy Unknown Rash Verified 04/04/25 11:27 shellfish derived (From Allergy Unknown SWELLING Verified 04/04/25 11:27 SHELLFISH (FOOD/DRUG)) ketorolac (From Toradol) Allergy Difficulty Verified 04/15/25 14:01 Breathing [facility] Disclaimer: The information contained in this section may have been updated after the patient was seen, as this information can be updated by other users. Medical History Insect bite Social History Smoking Status: Never smoker alcohol intake: never substance use type: denies use current occupational status: other Travel in the last 8 weeks?: Inside the [place] household members: family housing: house Have you lived/traveled outside [place] in past 30 days?: No Contact w/someone who lives/traveled outside [place] past 30 days?: No Exposure to someone with infectious disease in past 14 days?: No Do you have a fever (greater than 100.4 F or 38 C)?: No Have you tested positive for COVID-19?: No Exposed to someone with COVID-19 in past 14 days?: No Do you have a sore throat?: No Do you have a cough?: No Do you have any weakness?: No Do you have any diarrhea?: No Are you experiencing any unusual bleeding?: No Do you have any muscle aches/pain?: No Do you have any abdominal pain?: No Are you experiencing loss of taste or smell?: No Other Medical History Have you received the Flu Vaccine for this season: No Have you received the Pneumonia Vaccine: No ROS Obtained: Yes Systems reviewed as appropriate & no additional complaints except as documented Physical Exam General General appearance: alert, anxious and in distress Head Head exam: atraumatic and normocephalic Eye Eye exam: Present normal appearance and PERRL Neck Neck exam: Present normal inspection, full ROM and trachea midline Chest Chest inspection: Present normal inspection and symmetric chest wall rise; Absent tenderness Respiratory Respiratory exam: Present normal lung sounds bilaterally; Absent respiratory distress, wheezes or stridor Cardiovascular Cardiovascular exam: Present regular rate and normal rhythm Abdominal Exam Abdominal exam: Present soft and tenderness; Absent distention or guarding Abdominal tenderness: Present epigastrium Extremities Exam Extremities exam: Present normal inspection Neurological Exam Neurological exam: Present alert and oriented X3 Psychiatric Psychiatric exam: Present normal affect and anxious; Absent depressed Skin Skin exam: Present warm, dry and normal color Medical Decision Making Medical Records Medical records reviewed: Yes I reviewed the patient's medical records. Screening: Per USPSTF and CDC recommendations, given the prevalence of disease in our region, it is our hospital?s policy to screen for HIV and viral Hepatitis for all patients aged 18 and over and those with ongoing risk factors. Misha Inquiry Pt receiving controlled substance: Yes Misha was queried for this patient: Yes Risks and benefits of using a controlled substance: were discussed with pt by me Vital Signs: 05/18/25 16:19 05/18/25 21:54 Temperature 98.6 F 98.5 F Temperature Source Oral Pulse Rate 90 Pulse Rate [Left Radial] 122 H Respiratory Rate 16 18 Blood Pressure 148/99 H Blood Pressure [Right Arm] 160/111 H Blood Pressure Mean [Right Arm] 127 Blood Pressure Source [Right Arm] Automatic Cuff Blood Pressure Position [Right Arm] Supine 02 Sat by Pulse Oximetry 96 Oxygen Delivery Method Room Air Room Air Lab Data Lab Results 05/18/25 16:56: WBC 5.2, RBC 4.19 L, Hgb 12.5, Hct 38.8, MCV 92.6, MCH 29.8, MCHC 32.2, RDW 12.9, Plt Count 238, MPV 9.8, Neut % (Auto) 51.6, Lymph % (Auto) 39.8, [place] % (Auto) 6.4, Eos % (Auto) 1.4, Baso % (Auto) 0.6, Neut # (Auto) 2.7, Lymph # (Auto) 2.1, [place] # (Auto) 0.3, Eos # (Auto) 0.1, Baso # (Auto) 0.0, Sodium 141, Potassium 3.8, Chloride 108 H, Carbon Dioxide 25, Anion Gap 11.8, B UN 18 H, Creatinine 0.70, Estimated Creat Clear 133, Estimated GFR 90, Est GFR ( Amer) 109, Glucose 93, Calcium 10.4 H, Total Bilirubin 0.4, AST 20, ALT 16, Alkaline Phosphatase 77, Total Protein 7.4, Albumin 4.6, Globulin 2.8, Albumin/Globulin Ratio 1.6, Lipase 50 05/18/25 17:43: Urine Color Yellow, Urine Appearance Clear, Urine pH 6.0, Ur Specific [place] 1.025, Urine Protein Negative, Urine Glucose (UA) Negative, Urine Ketones Negative, Urine Blood Negative, Urine Nitrate Negative, Urine Bilirubin Negative, Urine Urobilinogen 0.2, Ur Leukocyte Esterase Negative, Urine RBC None, Urine WBC 3-5, Ur Squamous Epith Cells 3-5, Amorphous Sediment 1+, Urine Bacteria 1+ 05/18/25 16:56 05/18/25 16:56 Orders (Tests/Meds): ED MEDICATIONS Generic Name Dose Route Start Last Admin Trade Name Freq PRN Reason Stop Dose Admin Sodium Chloride 10 ml 05/18/25 16:46 Sodium Chloride 0.9% 10ml Flush Syringe IV 06/17/25 16:45 NEEDED PRN Maintain IV Site Discontinued Medications Generic Name Dose Route Start Last Admin Trade Name Freq PRN Reason Stop Dose Admin Acetaminophen 1,000 mg 05/18/25 20:32 05/18/25 20:44 Acetaminophen 1,000mg/100ml Vial IV 05/18/25 20:33 1,000 mg ONCE ONE Administration Hydromorphone HCl 0.5 mg 05/18/25 16:46 05/18/25 17:52 Hydromorphone 2mg/Ml Syringe IV 05/18/25 16:47 0.5 mg ONCE ONE Administration Hydromorphone HCl 0.5 mg 05/18/25 18:16 05/18/25 18:59 Hydromorphone 2mg/Ml Syringe IV 05/18/25 18:17 0.5 mg ONCE ONE Administration Sodium Chloride 1,000 mls @ 999 mls/hr 05/18/25 18:15 05/18/25 20:48 Sod Chlor 0.9% 1000ml Bag IV 05/18/25 19:15 Infused .Q1H1M ONE Infusion Ondansetron HCl 4 mg 05/18/25 16:46 05/18/25 17:52 Ondansetron 4mg/2ml Vial IV 05/18/25 16:47 4 mg ONCE ONE Administration Promethazine HCl 12.5 mg 05/18/25 20:32 05/18/25 20:45 Promethazine Hcl 25mg/Ml 1ml Vial IV 05/18/25 20:33 12.5 mg ONCE ONE Administration Sodium Chloride 25 ml 05/18/25 20:32 05/18/25 20:45 Sodium Chloride 0.9% 25ml Bag IV 05/18/25 20:33 25 ml ONCE ONE Administration ORDERS Category Date Time Status Complete Blood Count Auto Diff Stat Lab 05/18/25 16:56 Completed Comprehensive Metabolic Panel Stat Lab 05/18/25 16:56 Completed Lipase Stat Lab 05/18/25 16:56 Completed Urinalysis and Microscopic Stat Lab 05/18/25 17:43 Completed Medical Decision Narrative: In summary patient is an ill-appearing 44-year-old female who presents to the emergency department for evaluation of chronic abdominal pain. Patient is hemodynamically stable upon arrival, afebrile throughout ED course. Patient is tender throughout her abdomen but more so in her epigastric region. Otherwise physical exam is unremarkable; see above for full details of exam. Differential diagnosis includes chronic pancreatitis, viral illness, UTI. Initial workup will be conducted with labs. Initial interventions include IV fluids, pain and nausea medication. Initial workup reviewed by me shows labs are generally unremarkable with no significant electrolyte derangement, kidney injury, or transaminitis on CMP, no significant leukocytosis or anemia on CBC, and urine without evidence of infection. Upon repeat evaluation patient's physical exam had improved due to pain management and ED course. However, patient continues to complain of pain. Plan of care is to patient be discharged home to follow-up with primary care and pain management. Patient verbalized understanding of and is amenable to this plan of care. Patient is alert and oriented, nontoxic and afebrile, GCS 15; given this, she is stable and appropriate for discharge at this time. I reviewed patient's previous ED and admission workups including labs and imaging. Critical Care Critical Care Time Critical Care Time: No
[2025-05-18 17:07] LABS: Hematocrit 38.8 % (37.0-47.0); Hemoglobin 12.5 g/dL (12.2-16.2); Immature Granulocytes % 0.2 %; Mean Corpuscular HGB Conc 32.2 g/dL (31.8-35.4); Mean Corpuscular Hemoglobin 29.8 pg (27.0-31.2); Mean Corpuscular Volume 92.6 fl (81-99); Nucleated Red Blood Cells % 0 %; Platelet Count 238 K/mm3 (142-424); Red Blood Count 4.19 M/mm3 (4.20-5.40); Red Cell Distribution Width-SD 43.4 fL; White Blood Count 5.2 K/mm3 (4.8-10.8)
[2025-05-18 17:19] LABS: Albumin Level 4.6 g/dl (3.5-5.0); Chloride 108 mmol/L (98-107); Sodium 141 mmol/L (136-145)
[2025-05-18 17:20] LABS: Potassium 3.8 mmoL/L (3.5-5.1)
[2025-05-18 17:22] LABS: Alanine Aminotransferase 16 U/L (12-78); Albumin/Globulin Ratio 1.6 (1.1-1.8); Alkaline Phosphatase 77 U/L (38-126); Anion Gap 11.8 mEq/L (5-15); Aspartate Amino Transferase 20 U/L (14-36); Bilirubin,Total 0.4 mg/dl (0.2-1.3); Blood Urea Nitrogen 18 mg/dl (7-17); Carbon Dioxide 25 mmol/L (22.0-30.0); Creatinine Clearance Estimated 133 mL/min (50-200); Creatinine,Serum 0.70 mg/dl (0.52-1.04); Estimated Glomerular Filt Rate 90 ml/min (>60); GFR (African American) 109 ML/MIN (>60); Globulin 2.8 g/dL (1.3-3.2); Total Protein,Serum 7.4 g/dl (6.3-8.2)
[2025-05-18 17:23] LABS: Calcium 10.4 mg/dl (8.4-10.2); Glucose 93 mg/dl (74-100); Lipase 50 U/L (23-300)
[2025-05-18 17:47] LABS: Microscopic, Urine URINE MICROSCOPIC (MICROSCOPIC)
[2025-05-18 17:52] LABS: Bilirubin,Urine Negative (Negative); Color,Urine YELLOW (Yellow); Glucose,Urine (UA) Negative (Negative); Ketones,Urine Negative (Negative); Leukocyte Esterase,Urine Negative (Negative); PH,Urine 6.0 (5.0-8.5); Protein,Urine Negative (Negative); Specific Gravity, Urine 1.025 (1.005-1.030); Urobilinogen,Urine 0.2 EU/dl (0.2)
[2025-05-18] MEDS: ONDANSETRON 4MG/2ML VIAL 4 MG IV (17:52)
[2025-05-18] MEDS: HYDROMORPHONE 2MG/ML SYRINGE 0.5 MG IV ×2 (17:52→18:59)
[2025-05-18 17:58] LABS: Amorphous Sediment,Urine 1+ /lpf; Bacteria,Urine 1+ /lpf
[2025-05-18] MEDS: 0.9 % SODIUM CHLORIDE 1000ML 1,000 ML 999 ML IV (19:00)
[2025-05-18] MEDS: ACETAMINOPHEN 1,000MG/100ML VIAL 1000 MG IV (20:44)
[2025-05-18] MEDS: PROMETHAZINE HCL 25MG/ML 1ML VIAL 12.5 MG IV (20:45)
[2025-05-18] MEDS: SODIUM CHLORIDE 0.9% 25ML BAG 25 ML IV (20:45)
[2025-05-18 21:54] VITALS: BP 148/99; PULSE 90; RESP 18; TEMP 36.9; O2SAT 98
== END 2025-05-18 21:59 | disposition home or self-care (01) ==
PROVIDERS: Physician Assistant; Emergency Provider Student in an Organized Health Care Education/Training Program
DX: R10.13 Epigastric pain (principal); K86.1 Other chronic pancreatitis
CPT/HCPCS: 36415; 80053; 81001; 83690; 85025; 96361; 96374; 96375; 96376; 99284; 99285; J0131; J1171; J2405; J2550; J7030